=== PATIENT | male | born 1955 | race Caucasian/White ===

== ENCOUNTER → 2016-11-27 | Outpatient (CLI) | payer OTHER ==
[~2016-11-27] MED LIST: ASPEC81 PO; ATEN-173 PO; ATOR-24 PO; COEN1CAP17 PO; EZET10TA63 PO; FURO80TA63 PO; POTA10CA28 PO; PRENTAB26 PO; PRLSR20 PO; SENN-91 PO
[2016-11-27 11:06] LABS: BLOOD UREA NITROGEN 19 mg/dl (7-18); BUN/CREATININE RATIO 12.7 (10-20); CARBON DIOXIDE 32 mmol/L (21-32); CHLORIDE 104 mmol/L (98-107); GLUCOSE 95 mg/dl (70-99); POTASSIUM 4.1 mmol/L (3.5-5.1); SODIUM 141 mmol/L (136-145)
== END | disposition home or self-care (01) ==
LOC: C.LABBC 08:48
PROVIDERS: ATTEND Family Medicine
DX: E87.70 Fluid overload, unspecified (principal)

== ENCOUNTER → 2017-04-23 | Outpatient (CLI) | payer OTHER ==
[2017-04-23 11:33] LABS: BLOOD UREA NITROGEN 27 mg/dl (7-18); BUN/CREATININE RATIO 18.1 (10-20); CALCIUM 9.1 mg/dl (8.5-10.1); CARBON DIOXIDE 28 mmol/L (21-32); CHLORIDE 102 mmol/L (98-107); GLUCOSE 91 mg/dl (70-99); SODIUM 139 mmol/L (136-145)
[2017-04-23 11:35] LABS: CHOLESTEROL 173 mg/dl (0-200); CHOLESTEROL/HDL RATIO 4.7; HDL CHOLESTEROL 37 mg/dl; LDL CHOLESTEROL CALCULATED 121 mg/dl; TRIGLYCERIDES 73 mg/dl (0-150); VERY LOW DENSITY LIPOPROT CALC 15 mg/dl
== END | disposition home or self-care (01) ==
LOC: C.LABBC 08:03
PROVIDERS: ATTEND Family Medicine
DX: E78.5 Hyperlipidemia, unspecified (principal); I10 Essential (primary) hypertension

== ENCOUNTER → 2017-10-31 | Outpatient (CLI) | payer OTHER ==
[2017-10-31 15:35] LABS: ALT/SGPT 31 U/L (12-78); BLOOD UREA NITROGEN 21 mg/dl (7-18); CARBON DIOXIDE 29 mmol/L (21-32); CREATININE 1.26 mg/dl (0.60-1.40); GLUCOSE 89 mg/dl (70-99); POTASSIUM 3.8 mmol/L (3.5-5.1); SODIUM 139 mmol/L (136-145)
[2017-10-31 15:37] LABS: CHOLESTEROL 92 mg/dl (0-200); LDL CHOLESTEROL CALCULATED 45 mg/dl
== END | disposition home or self-care (01) ==
LOC: C.LABBC 09:27
PROVIDERS: ATTEND Family Medicine
DX: E78.5 Hyperlipidemia, unspecified (principal); I10 Essential (primary) hypertension; I25.10 Atherosclerotic heart disease of native coronary artery without angina pectoris

== ENCOUNTER → 2018-05-13 | Outpatient (CLI) | payer OTHER ==
[2018-05-13 12:47] LABS: BASO % 0.6 %; BASO ABS # 0.04 K/uL (0-0.2); EOS % 4.4 %; EOS ABS # 0.28 K/uL (0-0.5); HEMATOCRIT 43.6 % (42-52); HEMOGLOBIN 14.6 g/dL (14.0-18.0); IG# 0.01 K/uL (0.00-0.02); LYMPH % 31.7 %; MEAN CELL VOLUME 94.8 fL (80-100); MEAN CORPUSCULAR HEMOGLOBIN 31.7 pg (25-34); MEAN CORPUSCULAR HGB CONC 33.5 g/dl (32-36); MEAN PLATELET VOLUME 11.4 fL (7.4-10.4); MONO % 11.7 %; MONO ABS # 0.74 K/uL (0.11-0.59); NEUT % 51.4 %; NEUT ABS # 3.23 K/uL (1.4-6.5); PLATELET COUNT 225 K/uL (130-400)
[2018-05-13 13:11] LABS: HEMOGLOBIN A1C 6.1 % (4.5-5.6)
[2018-05-13 13:23] LABS: ALBUMIN 3.8 gm/dl (3.4-5.0); ALKALINE PHOSPHATASE 103 U/L (45-117); ALT/SGPT 32 U/L (12-78); AST/SGOT 35 U/L (15-37); BLOOD UREA NITROGEN 23 mg/dl (7-18); CALCIUM 9.1 mg/dl (8.5-10.1); CARBON DIOXIDE 27 mmol/L (21-32); CHOLESTEROL 105 mg/dl (0-200); CREATININE 1.18 mg/dl (0.60-1.40); GLUCOSE 98 mg/dl (70-99); LDL CHOLESTEROL CALCULATED 58 mg/dl; POTASSIUM 4.2 mmol/L (3.5-5.1); SODIUM 139 mmol/L (136-145); TOTAL PROTEIN 7.9 gm/dl (6.4-8.2)
== END | disposition home or self-care (01) ==
LOC: C.LABBC 09:40
PROVIDERS: ATTEND Family Medicine
DX: Z00.00 Encounter for general adult medical examination without abnormal findings (principal); Z12.5 Encounter for screening for malignant neoplasm of prostate; E78.5 Hyperlipidemia, unspecified; I10 Essential (primary) hypertension; R79.89 Other specified abnormal findings of blood chemistry

== ENCOUNTER 2024-12-07 22:52 | Inpatient (IN) ==
--- NOTE | 2024-12-07 23:02 | Emergency Department Note ---
Impression & Plan Symptomatic bradycardia admit to the [facility] ED Provider Note NAME: MARY KAY ESCALONA AGE: 69 SEX: Male INFORMANT: Patient ED PROVIDER(S): Kaylan Fletcher DO CHIEF COMPLAINT: Extreme fatigue PLAN: Disposition: admit to the [facility] MEDICAL DECISION MAKING: This is a 69-year-old male patient who had a sudden onset tonight of feeling extremely tired/fatigued and then had hot flash with warmth up through his chest. He then felt as if he was going to lose consciousness. EMS was called. Upon their arrival, they found the patient extremely bradycardic and hypotensive. He was resuscitated with a bolus of normal saline solution and IV atropine. By history, over the past 5 to 7 days, the patient has been having intermittent episodes of similar symptoms and actually had an episode where he lost consciousness over the weekend when he was visiting family in [place] and was seen at the [facility] after falling to the ground striking his head. He had a CT scan of his brain and cervical spine which were negative. He had a cardiac workup which was negative and Dopplers of his legs which were negative. here in the emergency department laboratory studies showed no leukocytosis. Hemoglobin was 1010.7. BUN 31 creatinine 1.93. Glucose was 123. Troponin was significantly elevated to 1161. Upon presentation to the emergency department, the patient's vital signs were stable. EKG showed no acute signs of ischemia. Discussed the case with the [facility] and they will evaluate for further inpatient care. Care/management discussed with: nursing services manager and [facility] Triage Nursing notes: reviewed and agree with them Vital Signs: reviewed and unremarkable Differential Diagnosis: cardiac dysrhythmia, PE, GERD, cardiac ischemia, hypoglycemia Diagnostics, independently interpreted by me: ECG: Sinus tachycardia at a rate of 101 with first-degree block. There is ST segment depression in the inferior and lateral leads. Cardiac Monitoring: sinus tachycardia at 103 Imaging studies: portable chest x-ray: Moderate pulmonary vascular congestion as per my independent interpretation HPI: 69 year old Male arrives for evaluation of extreme fatigue and and hot flash. sudden onset tonight of feeling extremely tired/fatigued and then had hot flash with warmth up through his chest. He then felt as if he was going to lose consciousness. EMS was called. Upon their arrival, they found the patient extremely bradycardic and hypotensive. He was resuscitated with a bolus of normal saline solution and IV atropine. PAST MEDICAL HISTORY: See Below, PAST SURGICAL HISTORY: See Below, SOCIAL HISTORY: See Below, HOME MEDICATIONS: see list ALLERGIES: see list VITALS: See Below PHYSICAL EXAMINATION: HEENT: Head - normocephalic and atraumatic Pupils are equal, round, and reactive to light. Extraocular eye muscles are intact, and sclera are anicteric. Nose - moist nasal mucosa without discharge. Mouth - moist buccal mucosa. Oropharynx is nonerythematous and there is no tonsillar exudate or edema noted. Neck: Supple; no JVD, nuchal rigidity, cervical lymphadenopathy, or auscultated bruits. Heart: Regular rate and rhythm. There is a normal S1 and S2 with no murmurs, clicks, or gallops appreciated. Lungs: Clear to auscultation bilaterally with no wheezes, rales, or rhonchi. Abdomen: Soft, completely nontender, nondistended, with good bowel sounds. There are no palpable pulsatile masses or hepatosplenomegaly. There is no guarding, rigidity, or rebound noted. Extremities: No evidence of cyanosis, clubbing, or edema. There are easily palpable peripheral pulses. Skin: warm and dry with good turgor and no rashes. Emergency Department course: Patient was evaluated in room B-5. A complete history and physical was performed. An order was placed for continuous cardiac monitoring. The patient was in a sinus tachycardia at a rate of 103. Twelve- lead EKG was obtained as described above. Laboratory studies showed evidence of moderate dehydration and the patient was bolused with normal saline solution. 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 He had no further episodes of bradycardia while here in the ER. [facility] and [facility] will evaluate for further inpatient care. Past Med/Surg History Problem List (Updated 12/08/24 @ 10:49 by Talisha Garcia PA-C) Second degree AV block, Mobitz type I NSTEMI (non-ST elevated myocardial infarction) Symptomatic bradycardia (Acute) Hypotension, unspecified Prediabetes Exertional hypotension CAD (coronary artery disease) BPH (benign prostatic hyperplasia) Chronic kidney disease Allergic rhinitis (Chronic) Chronic asthmatic bronchitis (Chronic) Esophageal reflux (Chronic) Gout (Chronic) HTN, goal below 140/90 (Chronic) Hyperlipidemia (Chronic) Left ventricular diastolic dysfunction (Chronic) Left ventricular hypertrophy (Chronic) Low testosterone (Chronic) Mild tricuspid regurgitation (Chronic) Paralyzed hemidiaphragm (Chronic) Paroxysmal atrial fibrillation (Chronic) Rosacea (Chronic) S/P CABG (coronary artery bypass graft) (Chronic) S/P aortic valve replacement (Chronic) Pleural effusion on right (Chronic) Anemia (Chronic) Atrial fibrillation Medical History (Updated 12/08/24 @ 10:49 by Talisha Garcia PA-C) History of Hodgkin's disease Cataract Surgical History (Updated 05/27/24 @ 11:24 by Leo Napier RN) Stented coronary artery RCA S/P cataract surgery History of aortic valve replacement Hx of CABG History of radiation therapy History of hernia repair History of splenectomy History of pulmonic valve repair Family History Father Myocardial infarction Hx of CABG Mother Hypertension Pure hypercholesterolemia Brother Diabetes Hypertension Unknown Prostate cancer Colorectal cancer Myocardial infarction Grandfather Prostate cancer Grandfather Colorectal cancer Denies family history of Ovarian cancer Breast cancer Social History Smoking Status: Never smoker Second Hand Exposure: No; Do You Dip or Chew Tobacco: No; Hx Alcohol Use: No Hx Substance Use: No Preferred Language: [place] Communication Ability: Effective Visual Impairment: No Limitations Hearing Ability: Normal Schedule Supervisor Required: No Beliefs That Will Affect Care: Spiritual marital status: Current Living Situation: Spouse Current Living Situation Comment: son current occupational status: retired current occupation: Retired Feels Safe at Home: Yes Safety Concerns: Feels Safe At This Time Childhood Exposure to Second-Hand Smoke: No Diet: regular Diet Comment: regular Dental Care, Regularly: Yes Physical Activity Frequency: 1-2 Times per Week Seatbelt Use: always Sunscreen Use: Yes (sometimes ) Assistive Devices: Walker Allergies Allergies Allergy/AdvReac Type Severity Reaction Status Date / Time mold Allergy Unknown Verified 12/08/24 00:35 pollen extracts Allergy Unknown Verified 12/08/24 00:35 allopurinol AdvReac Itching Verified 12/08/24 00:35 Home Meds Home Medications Medication Instructions Recorded Confirmed fexofenadine 180 mg tablet 180 mg PO QAM 07/05/19 12/08/24 cholecalciferol (vitamin D3) 25 2,000 unit PO HS 01/06/23 12/08/24 mcg (1,000 unit) capsule albuterol sulfate 2.5 mg/3 mL 2.5 mg continuous nebulization BID 12/08/24 12/08/24 (0.083 %) solution for nebulization albuterol sulfate 90 mcg/actuation 2 puff inhalation .Q4-6H PRN 12/08/24 12/08/24 aerosol inhaler Shortness Of Breath Or Wheezing aspirin 81 mg tablet,delayed 81 mg PO QAM 12/08/24 12/08/24 release atorvastatin 40 mg tablet 40 mg PO HS 12/08/24 12/08/24 budesonide 1 mg/2 mL suspension 1 mg inhalation .UD 12/08/24 12/08/24 for nebulization carvedilol 3.125 mg tablet 3.125 mg PO BID 12/08/24 12/08/24 clopidogrel 75 mg tablet 75 mg PO QAM 12/08/24 12/08/24 ezetimibe 10 mg tablet 10 mg PO DAILY 12/08/24 12/08/24 lisinopril 5 mg tablet 5 mg PO QAM 12/08/24 12/08/24 nitroglycerin 0.4 mg sublingual 0.4 mg sublingual .Q5MIN X3 PRN 12/08/24 12/08/24 tablet Chest Pain omeprazole 20 mg capsule,delayed 20 mg PO HS 12/08/24 12/08/24 release probenecid 500 mg tablet 500 mg PO BID 12/08/24 12/08/24 tiotropium bromide 2.5 2 puff inhalation QAM 12/08/24 12/08/24 mcg/actuation mist for inhalation (Spiriva Respimat) torsemide 20 mg tablet 20 mg PO QAM 12/08/24 12/08/24 Previous Rx's Medication Instructions Recorded amoxicillin 500 mg capsule 2,000 mg (4 x 500 mg) PO .COMPLEX 06/24/23 #4 caps tramadol 50 mg tablet 50 mg PO Q6H PRN pain #60 tabs 09/22/23 Results & Data (ED) Vital Signs Vital Signs - 24 hr 12/07/24 22:58 12/07/24 23:09 Temperature 36.6 C Temperature Source Oral Pulse Rate 93 H 103 H Pulse Rhythm Regular Pulse Strength Normal Respiratory Rate 20 Respiratory Effort / Characteristics Non-Labored Respiratory Depth Normal Respiratory Pattern Regular Blood Pressure 130/83 Blood Pressure Mean 98 Pulse Oximetry 97 Oxygen Delivery Method Nasal Cannula Sepsis Recent Fever Within 48 Hours No Sepsis New/Unexplained Change in Mental Status No Sepsis Action Taken by Nursing No Action Required Laboratory Data 12/08/24 03:32 12/08/24 03:32 Lab Results 12/07/24 12/08/24 Range/Units 23:00 00:53 WBC 5.61 (4.8-10.8) K/ul RBC 3.53 L (4.70-6.10) M/uL Hgb 10.7 L (14.0-18.0) g/dl Hct 32.8 L (42.0-52.0) % MCV 92.9 (80.0-100.0) fL MCH 30.3 (25.0-34.0) pg MCHC 32.6 (32.0-36.0) g/dL RDW Std Deviation 56.7 H (36.4-46.3) fL RDW Coeff of Sarahy 17.0 H (11.5-14.5) % Plt Count 230 (130-400) K/uL MPV 10.2 (9.4-12.4) fL Immature Gran % (Auto) 0.4 % Neut % (Auto) 64.9 % Lymph % (Auto) 17.1 % [place] % (Auto) 13.0 % Eos % (Auto) 4.1 % Baso % (Auto) 0.5 % Neut # (Auto) 3.64 (1.40-6.50) K/uL Lymph # (Auto) 0.96 L (1.20-3.40) K/uL [place] # (Auto) 0.73 H (0.11-0.59) K/uL Eos # (Auto) 0.23 (0.00-0.50) K/uL Baso # (Auto) 0.03 (0.00-0.20) K/uL Immature Gran # (Auto) 0.02 (0.01-0.20) K/uL Sodium 136 (136-145) mmol/L Potassium 4.0 (3.5-5.1) mmol/L Chloride 102 (98-107) mmol/L Carbon Dioxide 27 (21-32) mmol/L Anion Gap 7 (3-11) BUN 31 H (6-23) mg/dl Creatinine 1.93 H (0.6-1.4) mg/dl Est Cr Clr Drug Dosing 42.3 ml/min eGFR 36.78 BUN/Creatinine Ratio 16.1 (10-20) Glucose 123 H (70-99(Fasting)) mg/dl Estimat Average Glucose 137 mg/dl Hemoglobin A1c 6.4 H (4.5-5.6) % Calcium 8.3 L (8.6-10.3) mg/dl Phosphorus 4.6 (2.5-4.9) mg/dl Magnesium 2.1 (1.7-2.4) mg/dl Total Bilirubin 0.9 (0.2-1.0) mg/dl AST 25 (13-39) U/L ALT 21 (7-52) U/L Alkaline Phosphatase 109 H (34-104) U/L Troponin I High Sens 1161.8 H* 993.8 H* (0-20) pg/ml Total Protein 7.7 (6.0-8.3) gm/dl Albumin 3.5 (3.4-5.0) gm/dl Globulin 4.2 H (2.5-4.0) gm/dl Albumin/Globulin Ratio 0.8 L (0.9-2) Lipase 47 (11-82) U/L TSH 3.903 (0.300-4.500) uIu/ml Administered Medications Aspirin (Aspirin 81 Mg Ectab) 81 mg PO QAM [facility] Stop: 01/07/25 08:59 Last Admin: 12/08/24 08:33 Dose: 81 mg Documented By: JOYCE Atorvastatin Calcium (Atorvastatin 40 Mg Tab) 40 mg PO [facility] Stop: 01/07/25 20:59 Last Admin: 12/08/24 21:31 Dose: 40 mg Documented By: JIMY Budesonide (Budesonide 0.5 Mg/2 Ml Vial (Pulmicort)) 0.5 mg INH BIDR [facility] Stop: 01/07/25 18:59 Last Admin: 12/09/24 06:48 Dose: 0.5 mg Documented By: Admin: 12/08/24 20:17 Dose: 0.5 mg Documented By: ABENA Clopidogrel Bisulfate (Clopidogrel Bisulfate 75 Mg Tab) 75 mg PO QAM [facility] Stop: 01/07/25 08:59 Last Admin: 12/08/24 08:34 Dose: 75 mg Documented By: JOYCE Ezetimibe (Ezetimibe 10 Mg Tab) 10 mg PO DAILY [facility] Stop: 01/07/25 08:59 Last Admin: 12/08/24 08:33 Dose: 10 mg Documented By: JOYCE Fexofenadine HCl (Fexofenadine Hcl 180 Mg Tab) 180 mg PO QAM [facility] Stop: 01/07/25 08:59 Last Admin: 12/08/24 08:33 Dose: 180 mg Documented By: JOYCE Heparin Sodium/Dextrose (Heparin 29458 Unit/500 Ml D5w) 25,000 units in 500 mls @ 28 mls/hr IV .[id number] [facility]; Protocol Stop: 01/07/25 11:29 Last Admin: 12/09/24 03:55 Dose: 1,400 units/hr, 28 mls/hr Documented By: MARTHA Co-signed By: MADELINE Titration: 12/09/24 03:55 Dose: Infused Documented By: MARTHA Co-signed By: MADELINE Titration: 12/08/24 19:47 Dose: 1,400 units/hr, 28 mls/hr Documented By: JIMY Co-signed By: KRISSY Admin: 12/08/24 11:48 Dose: 1,500 units/hr, 30 mls/hr Documented By: CHELLY Co-signed By: JOYCE Pantoprazole Sodium (Pantoprazole 40 Mg Tab) 40 mg PO HS [facility] Stop: 01/07/25 20:59 Last Admin: 12/08/24 21:31 Dose: 40 mg Documented By: JIMY Probenecid (Probenecid 500 Mg Tab) 500 mg PO BID [facility] Stop: 01/07/25 08:59 Last Admin: 12/08/24 21:31 Dose: 500 mg Documented By: Admin: 12/08/24 08:33 Dose: 500 mg Documented By: JOYCE Umeclidinium Moore (Umeclidinium Moore 62.5mcg/Blister 7 Puffs/Inhaler) [facility] Stop: 01/07/25 08:59 Last Admin: 12/08/24 08:35 Dose: 1 puffs Documented By: JOYCE Discontinued Medications Heparin Sodium (Porcine) (Heparin Sod (Porcine) 1000 Unit/Ml) 7,000 units IV NOW ONE Stop: 12/08/24 11:23 Last Admin: 12/08/24 11:48 Dose: 7,000 units Documented By: CHELLY Co-signed By: JOYCE Heparin Sodium (Porcine) (Heparin Sod (Porcine) 1000 Unit/Ml) Confirm Administered Dose 1,000 units .ROUTE .STK-MED ONE Stop: 12/08/24 11:47 Last Admin: 12/08/24 11:49 Dose: Not Given Documented By: CHELLY Sodium Chloride (Nss) 500 mls @ 999 mls/hr IV .Q31M ONE Stop: 12/08/24 00:56 Last Admin: 12/08/24 01:08 Dose: Not Given Documented By: JAKE Albumin Human (Albumin 25%) 25 gm in 100 mls @ 50 mls/hr IV ONE ONE Stop: 12/08/24 02:41 Last Infusion: 12/08/24 03:23 Dose: Infused Documented By: Admin: 12/08/24 01:15 Dose: 50 mls/hr Documented By: JAKE Discharge Plan Visit Data Chief Complaint: Hypotension Stated Complaint: HYPOTENSION, BRADYCARDIC - IMPROVED WITH FLUIDS ED Provider: Kaylan Fletcher Discharge Problem: Symptomatic bradycardia Patient Disposition: Admitted As Inpatient Discharge Instructions Interventions: ED Discharge Assessment Last Done: 12/08/24 03:42
[2024-12-07 23:34] LABS: Basophils # (auto) 0.03 K/uL (0.00-0.20); Basophils % (auto) 0.5 %; Eosinophils # (auto) 0.23 K/uL (0.00-0.50); Eosinophils % (auto) 4.1 %; Hematocrit (blood only) 32.8 % (42.0-52.0); Hemoglobin 10.7 g/dl (14.0-18.0); Immature Granulocytes # (auto) 0.02 K/uL (0.01-0.20); Immature Granulocytes % (auto) 0.4 %; Lymphocytes # (auto) 0.96 K/uL (1.20-3.40); Lymphocytes % (auto) 17.1 %; Mean Corpuscular Hemoglobin 30.3 pg (25.0-34.0); Mean Corpuscular Hgb Conc 32.6 g/dL (32.0-36.0); Mean Corpuscular Volume 92.9 fL (80.0-100.0); Mean Platelet Volume 10.2 fL (9.4-12.4); Monocytes # (auto) 0.73 K/uL (0.11-0.59); Neutrophils # (auto) 3.64 K/uL (1.40-6.50); Neutrophils % (auto) 64.9 %; Platelet Count 230 K/uL (130-400); RDW Standard Deviation 56.7 fL (36.4-46.3); Red Blood Count 3.53 M/uL (4.70-6.10); White Blood Count 5.61 K/ul (4.8-10.8)
[2024-12-07 23:40] LABS: Albumin Globulin Ratio 0.8 (0.9-2); Albumin Level 3.5 gm/dl (3.4-5.0); BUN Creatinine Ratio 16.1 (10-20); Bilirubin,Total 0.9 mg/dl (0.2-1.0); Calcium 8.3 mg/dl (8.6-10.3); Creatinine Clr Calc Pharmacy 42.3 ml/min; Globulin 4.2 gm/dl (2.5-4.0); Magnesium 2.1 mg/dl (1.7-2.4); Phosphorus 4.6 mg/dl (2.5-4.9); Total Protein 7.7 gm/dl (6.0-8.3)
[2024-12-07 23:53] LABS: Troponin I High Sensitivity 1161.8 pg/ml (0-20)
[2024-12-08] MEDS: SODIUM CHLORIDE 0.9% 500 ML IV ONE (01:08)
[2024-12-08] MEDS ORDERED: ATROPINE SULFATE 0.1 MG/ML 10ML SYR IV PRN (01:10)
[2024-12-08] MEDS: ALBUMIN 25% 25 GM/100 ML VIAL IV ONE (01:15)
[2024-12-08] MEDS ORDERED: HYDROmorphone INJ 0.5 MG/0.5 ML SYR IV PRN (01:47)
[2024-12-08] MEDS ORDERED: traMADol HCL 50 MG TABLET PO PRN (01:47)
[2024-12-08] MEDS ORDERED: PROMETHAZINE 6.25 MG/50.25 ML BAG IV PRN (01:47)
--- NOTE | 2024-12-08 01:55 | XRay Report ---
Exam(s): XR CXR 1 VIEW EXAM: XR Chest, 1 View CLINICAL HISTORY: Chest pain, nonspecific. TECHNIQUE: Frontal view of the chest. COMPARISON: 07/08/2019. FINDINGS: Status post sternotomy. Heart is enlarged. Slight increase in diffuse interstitial prominence. Interval increase in right pleural effusion with basilar atelectasis versus infiltrate. No pneumothorax. Bones are unchanged. IMPRESSION: Slight increase in pulmonary vascular congestion. Increased right pleural effusion with basilar atelectasis versus infiltrate. Electronically signed by: Jorge Nazario M.D. 12/08/24 01:54 AM
[2024-12-08 02:11] LABS: Thyroid Stimulating Hormone 3.903 uIu/ml (0.300-4.500)
[2024-12-08 02:14] LABS: Troponin I High Sensitivity 993.8 pg/ml (0-20)
[2024-12-08 03:55] LABS: Basophils # (auto) 0.03 K/uL (0.00-0.20); Basophils % (auto) 0.5 %; Eosinophils # (auto) 0.11 K/uL (0.00-0.50); Eosinophils % (auto) 1.7 %; Hematocrit (blood only) 30.8 % (42.0-52.0); Hemoglobin 10.2 g/dl (14.0-18.0); Immature Granulocytes # (auto) 0.02 K/uL (0.01-0.20); Immature Granulocytes % (auto) 0.3 %; Lymphocytes # (auto) 1.04 K/uL (1.20-3.40); Mean Corpuscular Hemoglobin 30.2 pg (25.0-34.0); Mean Corpuscular Hgb Conc 33.1 g/dL (32.0-36.0); Mean Corpuscular Volume 91.1 fL (80.0-100.0); Monocytes # (auto) 0.75 K/uL (0.11-0.59); Monocytes % (auto) 11.5 %; Neutrophils # (auto) 4.55 K/uL (1.40-6.50); Platelet Count 231 K/uL (130-400); RDW Coefficient of Variation 16.8 % (11.5-14.5); RDW Standard Deviation 55.6 fL (36.4-46.3); Red Blood Count 3.38 M/uL (4.70-6.10)
[2024-12-08 04:08] LABS: BUN Creatinine Ratio 17.2 (10-20); Calcium 8.4 mg/dl (8.6-10.3); Creatinine Clr Calc Pharmacy 42.5 ml/min; Potassium 4.2 mmol/L (3.5-5.1)
--- NOTE | 2024-12-08 04:54 | History & Physical Report ---
Date of Service December 08, 2024 Assessment & Plan (1) Hypotension, unspecified: Plan: Secondary to symptomatic bradycardia 2AVB Mobitz type II/complete heart block on strips taken by EMS on the field History 2AVB Mobitz type I on outpatient ZIO monitor February 2024 as per records Troponin elevation secondary to illness in the setting of kidney dysfunction chronic diastolic heart failure (EF 60 to 64%, TTE 2024), equivocal volume status given congestion on x-ray hx CAD status post CABG severe status post bioprosthetic AVR postop A-fib/junctional bradycardia as per records mild TR pulmonary hypertension hyperlipidemia, on statin Rx bronchial asthma, not in acute exacerbation Nocturnal hypoxemia as per records, outpatient sleep study contemplated Hodgkin's lymphoma status post surgery/chemoradiation, in remission Hyperglycemia likely prediabetes, hemoglobin A1c of 6.4 from 2022 chronic anemia, hemoglobin at baseline Admit to PCU IV albumin 1 dose for hypotension given congestion External pacer pads on Atropine as needed symptomatic bradycardia Hold beta-miguel angel and other BP meds for now Cardiology consult re: symptomatic bradycardia N.p.o. in anticipation of pacemaker placement Update hemoglobin A1c DVT prophylaxis. SCDs re: possible procedure Full code Total critical care time was 45 minutes. Text document was generated using Hootsuite voice recognition software. It may contain grammatical or spelling errors. Kindly contact undersigned for clarification of any documentation item in question. Admission and Anticipated Discharge Date Admission Date: December 08, 2024 History of Present Illness Chief Complaint: Weakness, near syncope Primary Care Provider: Chelle Vasquez DO History obtained from patient and records. Medical history significant for chronic diastolic heart failure (EF 60 to 64%, TTE 2024), CAD status post CABG/stent, severe status post bioprosthetic AVR, postop A-fib/junctional bradycardia, history second-degree AVB Mobitz type I as per records, mild TR, pulmonary hypertension, labile hypertension, hyperlipidemia, bronchial asthma, nocturnal hypoxemia as per records, Hodgkin's lymphoma status post surgery/chemoradiation, CRI (baseline creatinine 1.4), c hronic anemia (baseline hemoglobin of 10), GERD, gout, skin cancer status post surgery. Last [facility] confinement 2015 for dizziness post CABG surgery. Patient gives history of increased frequency of recurrent syncopal episodes this year. Mild chest/back discomfort symptoms. Fatigue symptoms without recollection of recent tick bites. No witnessed seizures or incontinence at home. Patient seen at local [facility] urgent care center for evaluation after an event which resulted in head injury. Patient was visiting family in [place], [place] last weekend when he had another episode at the hotel resulting in head injury. Patient observed at [facility] ER. Normal head scan but abnormal heart enzyme. Patient unaware of slow heartbeats. Patient signed out AGAINST MEDICAL ADVICE because he was unhappy with care. Last night patient felt more tired and fatigued. Warm sensation in his chest with transient back discomfort relieved by nitroglycerin. [place] like he was going to pass out. No headache symptoms. Compliant with home medications. EMS called to patient's home. SBP noted to be 70s, heart rate 40s. Second-degree AV block Mobitz type II and complete heart block on outpatient str ips taken by EMS. SBP 90s, heart rate 60s post IV atropine and IVF bolus administration by EMS. Patient currently comfortable. 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 Allergies Allergy/AdvReac Type Severity Reaction Status Date / Time mold Allergy Unknown Verified 12/08/24 00:35 pollen extracts Allergy Unknown Verified 12/08/24 00:35 allopurinol AdvReac Itching Verified 12/08/24 00:35 Home Medications Medication Instructions Recorded Confirmed Type fexofenadine 180 mg tablet 180 mg PO QAM 07/05/19 12/08/24 History cholecalciferol (vitamin D3) 25 2,000 unit PO HS 01/06/23 12/08/24 History mcg (1,000 unit) capsule amoxicillin 500 mg capsule 2,000 mg (4 x 500 mg) PO .COMPLEX 06/24/23 12/08/24 Rx #4 caps tramadol 50 mg tablet 50 mg PO Q6H PRN pain #60 tabs 09/22/23 12/08/24 Rx albuterol sulfate 2.5 mg/3 mL 2.5 mg continuous nebulization BID 12/08/24 12/08/24 History (0.083 %) solution for nebulization albuterol sulfate 90 mcg/actuation 2 puff inhalation .Q4-6H PRN 12/08/24 12/08/24 History aerosol inhaler Shortness Of Breath Or Wheezing aspirin 81 mg tablet,delayed 81 mg PO QAM 12/08/24 12/08/24 History release atorvastatin 40 mg tablet 40 mg PO HS 12/08/24 12/08/24 History budesonide 1 mg/2 mL suspension 1 mg inhalation .UD 12/08/24 12/08/24 History for nebulization carvedilol 3.125 mg tablet 3.125 mg PO BID 12/08/24 12/08/24 History clopidogrel 75 mg tablet 75 mg PO QAM 12/08/24 12/08/24 History ezetimibe 10 mg tablet 10 mg PO DAILY 12/08/24 12/08/24 History lisinopril 5 mg tablet 5 mg PO QAM 12/08/24 12/08/24 History nitroglycerin 0.4 mg sublingual 0.4 mg sublingual .Q5MIN X3 PRN 12/08/24 12/08/24 History tablet Chest Pain omeprazole 20 mg capsule,delayed 20 mg PO HS 12/08/24 12/08/24 History release probenecid 500 mg tablet 500 mg PO BID 12/08/24 12/08/24 History tiotropium bromide 2.5 2 puff inhalation QAM 12/08/24 12/08/24 History mcg/actuation mist for inhalation (Spiriva Respimat) torsemide 20 mg tablet 20 mg PO QAM 12/08/24 12/08/24 History Past Med/Surg History Problem List (Updated 12/07/24 @ 23:32 by Kaylan Fletcher DO) Symptomatic bradycardia (Acute) Hypotension, unspecified Prediabetes Exertional hypotension CAD (coronary artery disease) BPH (benign prostatic hyperplasia) Chronic kidney disease Allergic rhinitis (Chronic) Chronic asthmatic bronchitis (Chronic) Esophageal reflux (Chronic) Gout (Chronic) HTN, goal below 140/90 (Chronic) Hyperlipidemia (Chronic) Left ventricular diastolic dysfunction (Chronic) Left ventricular hypertrophy (Chronic) Low testosterone (Chronic) Mild tricuspid regurgitation (Chronic) Paralyzed hemidiaphragm (Chronic) Paroxysmal atrial fibrillation (Chronic) Rosacea (Chronic) S/P CABG (coronary artery bypass graft) (Chronic) S/P aortic valve replacement (Chronic) Pleural effusion on right (Chronic) Anemia (Chronic) Atrial fibrillation Medical History (Updated 12/07/24 @ 23:32 by Kaylan Fletcher DO) History of Hodgkin's disease Cataract Surgical History (Updated 05/27/24 @ 11:24 by Leo Napier RN) Stented coronary artery RCA S/P cataract surgery History of aortic valve replacement Hx of CABG History of radiation therapy History of hernia repair History of splenectomy History of pulmonic valve repair Family History Father Myocardial infarction Hx of CABG Mother Hypertension Pure hypercholesterolemia Brother Diabetes Hypertension Unknown Prostate cancer Colorectal cancer Myocardial infarction Grandfather Prostate cancer Grandfather Colorectal cancer Denies family history of Ovarian cancer Breast cancer Social History Smoking Status: Never smoker Second Hand Exposure: No; Do You Dip or Chew Tobacco: No; Hx Alcohol Use: No Hx Substance Use: No Preferred Language: Indonesian Communication Ability: Effective Visual Impairment: No Limitations Hearing Ability: Normal 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 Beliefs That Will Affect Care: None marital status: Current Living Situation: Spouse Current Living Situation Comment: son current occupational status: retired current occupation: Retired Feels Safe at Home: Yes Safety Concerns: Feels Safe At This Time Childhood Exposure to Second-Hand Smoke: No Diet: regular Diet Comment: regular Dental Care, Regularly: Yes Physical Activity Frequency: 1-2 Times per Week Seatbelt Use: always Sunscreen Use: Yes (sometimes ) Assistive Devices: Cane Review of Systems Review of Systems: As per HPI, all other systems reviewed and negative Physical Exam Physical Exam: GENERAL: Comfortable, pleasant, obese, no respiratory distress SKIN: Pallor,, warm HEENT: Pale palpebral conjunctivae, no ptosis, moist buccal mucosa NECK : Supple, no tenderness CHEST : Healed sternal scar, CTA, no tenderness HEART : RRR, no obvious murmurs ABDOMEN: Some distention, nontender EXTREMITIES : Bilateral LE swelling without LE tenderness, palpable pulses, no other conspicuous deformities noted NEUROLOGIC : Coherent, no facial asymmetry, no other gross focality Results & Data Results & Data Vital Signs (Past 12 Hours) Vital Signs Temp Pulse Pulse Resp BP BP Pulse Ox 12/08/24 04:00 94 H 20 90/67 L 94 12/08/24 03:42 94 H 20 103/65 93 12/08/24 03:42 93 12/08/24 03:04 95 H 12/08/24 02:30 96 H 20 118/67 93 12/08/24 02:00 84 25 H 116/73 93 12/08/24 01:31 86 21 128/81 96 12/08/24 01:00 95 H 21 96/65 L 95 12/08/24 01:00 95 H 21 96/65 L 91 12/08/24 00:30 105 H 24 103/66 94 12/08/24 00:00 96 H 12 98/59 L 93 12/07/24 23:51 97 H 20 93 12/07/24 23:30 102 H 29 H 112/74 95 12/07/24 23:09 36.6 C 103 H 20 130/83 97 12/07/24 23:00 134 H 22 130/83 96 12/07/24 22:58 93 H O2 Del Method O2 Flow Rate 12/08/24 04:00 Room Air 12/08/24 03:42 Room Air 12/08/24 03:42 Room Air 12/08/24 03:04 12/08/24 02:30 Room Air 12/08/24 02:00 12/08/24 01:31 12/08/24 01:00 12/08/24 01:00 12/08/24 00:30 12/08/24 00:00 12/07/24 23:51 Room Air 0 12/07/24 23:30 12/07/24 23:09 Nasal Cannula 12/07/24 23:00 12/07/24 22:58 Laboratory Results Laboratory Results WBC 6.50 K/ul (4.8-10.8) 12/08/24 03:32 RBC 3.38 M/uL (4.70-6.10) L 12/08/24 03:32 Hgb 10.2 g/dl (14.0-18.0) L 12/08/24 03:32 Hct 30.8 % (42.0-52.0) L 12/08/24 03:32 MCV 91.1 fL (80.0-100.0) 12/08/24 03:32 MCH 30.2 pg (25.0-34.0) 12/08/24 03:32 MCHC 33.1 g/dL (32.0-36.0) 12/08/24 03:32 RDW Std Deviation 55.6 fL (36.4-46.3) H 12/08/24 03:32 RDW Coeff of Sarahy 16.8 % (11.5-14.5) H 12/08/24 03:32 Plt Count 231 K/uL (130-400) 12/08/24 03:32 MPV 10.0 fL (9.4-12.4) 12/08/24 03:32 Immature Gran % (Auto) 0.3 % 12/08/24 03:32 Neut % (Auto) 70.0 % 12/08/24 03:32 Lymph % (Auto) 16.0 % 12/08/24 03:32 Maverick % (Auto) 11.5 % 12/08/24 03:32 Eos % (Auto) 1.7 % 12/08/24 03:32 Baso % (Auto) 0.5 % 12/08/24 03:32 Neut # (Auto) 4.55 K/uL (1.40-6.50) 12/08/24 03:32 Lymph # (Auto) 1.04 K/uL (1.20-3.40) L 12/08/24 03:32 [place]verick # (Auto) 0.75 K/uL (0.11-0.59) H 12/08/24 03:32 Eos # (Auto) 0.11 K/uL (0.00-0.50) 12/08/24 03:32 Baso # (Auto) 0.03 K/uL (0.00-0.20) 12/08/24 03:32 Immature Gran # (Auto) 0.02 K/uL (0.01-0.20) 12/08/24 03:32 Sodium 135 mmol/L (136-145) L 12/08/24 03:32 Potassium 4.2 mmol/L (3.5-5.1) 12/08/24 03:32 Chloride 102 mmol/L (98-107) 12/08/24 03:32 Carbon Dioxide 26 mmol/L (21-32) 12/08/24 03:32 Anion Gap 7 (3-11) 12/08/24 03:32 BUN 33 mg/dl (6-23) H 12/08/24 03:32 Creatinine 1.92 mg/dl (0.6-1.4) H 12/08/24 03:32 Est Cr Clr Drug Dosing 42.5 ml/min 12/08/24 03:32 eGFR 37.01 12/08/24 03:32 BUN/Creatinine Ratio 17.2 (10-20) 12/08/24 03:32 Glucose 124 mg/dl (70-99(Fasting)) H 12/08/24 03:32 Lactate 0.8 mmol/L (0.4-2.0) 12/08/24 01:15 Calcium 8.4 mg/dl (8.6-10.3) L 12/08/24 03:32 Phosphorus 4.6 mg/dl (2.5-4.9) 12/07/24 23:00 Magnesium 2.1 mg/dl (1.7-2.4) 12/07/24 23:00 Total Bilirubin 0.9 mg/dl (0.2-1.0) 12/07/24 23:00 AST 25 U/L (13-39) 12/07/24 23:00 ALT 21 U/L (7-52) 12/07/24 23:00 Alkaline Phosphatase 109 U/L (34-104) H 12/07/24 23:00 Troponin I High Sens 993.8 pg/ml (0-20) H* 12/08/24 00:53 Total Protein 7.7 gm/dl (6.0-8.3) 12/07/24 23:00 Albumin 3.5 gm/dl (3.4-5.0) 12/07/24 23:00 Globulin 4.2 gm/dl (2.5-4.0) H 12/07/24 23:00 Albumin/Globulin Ratio 0.8 (0.9-2) L 12/07/24 23:00 Lipase 47 U/L (11-82) 12/07/24 23:00 TSH 3.903 uIu/ml (0.300-4.500) 12/08/24 00:53 Impressions Chest X-Ray 12/07/24 23:21 Exam(s): XR CXR 1 VIEW EXAM: XR Chest, 1 View CLINICAL HISTORY: Chest pain, nonspecific. TECHNIQUE: Frontal view of the chest. COMPARISON: 07/08/2019. FINDINGS: Status post sternotomy. Heart is enlarged. Slight increase in diffuse interstitial prominence. Interval increase in right pleural effusion with basilar atelectasis versus infiltrate. No pneumothorax. Bones are unchanged. IMPRESSION: Slight increase in pulmonary vascular congestion. Increased right pleural effusion with basilar atelectasis versus infiltrate. Electronically signed by: Jorge Nazario M.D. 12/08/24 01:54 AM Diagnostic Findings EKG as per my interpretation :Rate 105, sinus tachycardia, normal axis, 1 AVB, T wave abnormalities lateral and septal leads Code Status & VTE Plan VTE Prophylaxis Plan VTE Prophylaxis will be ordered: Yes
--- OUTSIDE RECORDS SUMMARY | 2024-12-08 08:14 | External Medical Summary | Summary of Care ---
Author Name Unknown Organization [facility] Address [address] [facility] [place] [address] Phone [phone] Care Team Providers Care Policy Intern Name Role Phone JyotsnaMona montieljackeline Lazo DO Primary Care Provider Reason for Visit * Reason Comments Follow Up Encounter Details Date Type Department Care Team (Late st Contact Info) Description 11/24/2024 2:30 PM EST Office Visit Cardiology, [facility] [address] [place] [address] Tracey Cole CRNP [address] [facility] [place] [address] Acute on chronic heart failure with preserved ejection fraction (HCC)*; Coronary artery disease of [place] artery of [place] heart with stable angina pectoris (HCC); S/P CABG x 2; S/P aortic valve replacement with bioprosthetic valve; Dyslipidemia, goal LDL below 70; Essential hypertension with goal blood pressure less than 140/90 Allergies Active Allergy Reactions Criticality Noted Date Comments Allopurinol Rash 04/17/2020 Pollen 04/22/2012 Seasonal allergies Molds & Smuts 07/01/2022 documented as of this encounter (statuses as of 11/28/2024) Medications Fexofenadine HCl 180 MG Oral Tablet Take 1 Tablet by mouth in the morning. Active Vitamin D 50 MCG (1999) Oral Capsule Take 2,000 Units by mouth at bedtime. Active traMADol HCl 50 MG Oral Tablet (Ultram) Take 1 Tablet by mouth every 6 hours as needed. Active Potassium Chloride ER 10 MEQ Oral Tablet Extended Release Take 1 Tablet by mouth in the morning. 08/27/20 Active Carvedilol 3.125 MG Oral Tablet (Coreg) Take 1 Tablet by mouth in the morning and 1 Tablet before bedtime. 68 Tablet 11 12/23/19 24 Active Additional Information Patient taking differently:3.125 mg OralDaily(Non-Specified), Only taking at bedtime, Reported on 11/24/2024 Aspirin 81 MG Oral Tablet Chewable Take 1 Tablet by mouth in the morning. Do not start before April 10, 2024. 90 Tablet 3 04/10/20 24 Active Clopidogrel Bisulfate 75 MG Oral Tablet (pLAVix) Take 1 Tablet by mouth in the morning. Do not start before April 10, 2024. 90 Tablet 3 04/10/20 24 Active Amoxicillin 500 MG Oral Capsule (Amoxil) Take 4 Capsules by mouth daily as needed (dental appointments). Active Omeprazole 20 MG Oral Capsule Delayed Release (PriLOSEC) Take 1 Capsule by mouth at bedtime. 90 Capsule 3 05/31/20 24 Active Ezetimibe 10 MG Oral Tablet (Zetia) Take 1 Tablet by mouth in the morning. 100 Tablet 3 06/08/20 24 Active Nitroglycerin 0.4 MG Sublingual Tablet Sublingual (Nitrostat) Place 1 Tablet under the tongue every 5 minutes as needed for Pain, Chest. up to 3 doses in 15 minutes 25 Tablet 5 11:24 AM EST 07/22/20 24 Active Atorvastatin Calcium 40 MG Oral Tablet (Lipitor) Take 1 Tablet by mouth in the morning. 100 Tablet 3 5 1:36 PM EST 07/22/20 24 Active Spiriva Respimat 2.5 MCG/ACT Inhalation Aerosol Solution (Tiotropium [place] Monohydrate) Inhale 2 Puffs by mouth in the morning. 4 g 5 11:24 AM EST 09/14/20 24 Active HumidifierIndic ations:Hodgkin lymphoma, unspecified Hodgkin lymphoma type, unspecified body region (HCC) Humidifier for oxygen concentrator 2 Each 10/08/20 24 Active Compressor NebulizerIndica tions:Hodgkin lymphoma, unspecified Hodgkin lymphoma type, unspecified body region (HCC),Wheezing, Chronic pleural effusion Inhale via nebulizer. Use as directed. 1 Each 10/11/20 24 Active Probenecid 500 MG Oral Tablet (Benemid) Take 1 Tablet by mouth in the morning and 1 Tablet before bedtime. 60 Tablet 5 11/01/19 25 Active Ventolin HFA 108 (90 Base) MCG/ACT Inhalation Aerosol SolutionIndicat ions:Wheeze Inhale 2 Puffs by mouth as needed for Cough or Wheezing. 8.5 g 3 5 11:49 AM EST 11/03/19 25 Active Albuterol Sulfate (2.5 MG/3ML) 0.083% Inhalation Nebulization Solution (Proventil)Kendy cations:Wheeze Inhale 1 Vial via nebulizer every 4 hours as needed for Wheezing. 180 mL 5 5 11:49 AM EST 11/03/19 25 Active Budesonide 1 MG/2ML Inhalation Suspension (Pulmicort) Inhale 1 mg via nebulizer in the morning and 1 mg in the evening. 180 mL 3 5 1:33 PM EST 11/03/19 25 2024 Active Lisinopril 5 MG Oral Tablet (Prinivil) Take 1 Tablet by mouth in the morning. In the morning.. 09/21/20 24 Active Torsemide 20 MG Oral Tablet (Demadex) Take 1 Tablet by mouth in the morning. 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 See genetic counselor note for more details (07/08/2024). Calculus of gallbladder with out cholecystitis without obstruction 04/22/2024 Angina at rest 04/09/2024 S/P drug eluting coronary stent placement 2023 Overview (04/09/2024): S/p successful PCI to prox RCA 80% stenosis with placement of [id number] Xience Skypoint WEST, post-dilated with 3.5mm NC Balloon reducing stenosis to 0% with JAMES 3 flow Essential (primary) hypertension 12/08/2023 Hyperlipidemia 12/08/2023 Atherosclerosis of [place] co ronary artery without angina pectoris 12/08/2023 History of therapeutic radiation 09/20/2022 MGUS (monoclonal gammopathy of unknown significa nce) 05/17/2020 History of nonmelanoma skin cancer 11/25/2017 Overview (11/25/2017): Hx of BCC mid back - 2016 Hx of BCC left neck - 2016 Hx of SCC in situ on right lower back - 2013 Hx of BCC mid back - 2012 Hx of BCC left posterior scalp - 2011 Hx of BCC left posterior neck - 2011 Hx of BCC left posterior neck inferior -2011 Hx of BCC left post auricular sulcus - 2009 Hx of BCC left ear - 2009 Hx of BCC right upper back - 2011 Hx of BCC left lateral neck - 2011 S/P AVR (aortic valve replacement) 11/20/2015 Actinic keratosis 11/09/2013 Hodgkin lymphoma Aortic stenosis documented as of this encounter (statuses as of 11/28/2024) Resolved Problems Problem Noted Date Diagnosed Date Resolved Date Prediabetes 12/22/2023 04/22/2024 Overview: Per Prediabetes protocol Atrial fibrillation 11/20/2015 04/05/20 Overview (02/13/2016): ICD-10 update of inactive term Anticoagulation management encounter 11/20/2015 04/05/2024 History of basal cell carcinoma 11/09/2013 11/25/2017 Basal cell carcinoma of skin of trunk, except scrotum 06/23/2013 11/25/2017 History of basal cell carcinoma 04/22/2012 11/25/2017 Overview (04/22/2012): Hx of BCC left post auricular sulcus - 2009 Hx of BCC left ear - 2009 Hx of BCC right upper back - 2011 Hx of BCC left lateral neck - 2011 documented as of this encounter (statuses as of 11/28/2024) Immunizations Name Administration Dates Next Due COVID-19 mRNA, LNP-s, No Pre serve, 2-Dose Series (Moderna) 02/08/2022,09/05/2021,12/10/2020,11/02 COVID-19, MRNA-LNP, PF, 50 M CG/0.5 mL, 12 YRS AND ABOVE, IM (MODERNA-Spikevax) 08/21/2024,07/10/2023 Covid-19, Mrna, Lnp-s, Pf, B ivalent, 50 Mcg, IM, 12 yrs and above (Moderna) 08/23/2022 Hepatitis B, 20+ yrs 06/29/2021,02/26/2021,12/25 Pneumococcal Conjugate Vacc, 13 Valent (Prevnar) 07/13/2019 Pneumococcal Polysaccharide PPV23 (Pneumovax) 08/03/2020 RSV Vac., Recomb, Adjuvant, PF,0.5 Ml (Arexvy) 08/07/2023 Seasonal Influenza Vac., MDV , IM, 0.5 mL (Fluzone) 10/23/2013 Seasonal Influenza Virus Vac cine, Unspecified Formulation 07/26/2022,08/02/2021,10/20/2018,10/12,09/25/2016,08/23/2015,10/23/2013 Seasonal Influenza, High Dos e, Trivalent, PF, IM (Fluzone HD) 06/17/2024 Seasonal Influenza, Quadriva lent Hd, 65+ Yrs 07/25/2023,07/28/2020 TDAP (age 10 and older)(Boostrix) 10/02/2023,09/2012 Zoster Vaccine Recombinant (Shingrix) 03/18/2020 ,10/27/2019 documented as of this encounter Social History Tobacco Use Types Packs/Day Years Used Date Smoking Tobacco: Never Smokeless Tobacco: Never Alcohol Use Standard Drinks/Week Comments Yes 0 (1 standard drink = 0.6 oz pur e alcohol) occ PHQ-2 Answer Date Recorded PHQ Adult Total Score 0 09/17/2024 Hunger Vital Sign Answer Date Recorded Within the past 12 months, y ou worried that your food would run out before you got the money to buy more. Never true 09/27/20 24 Within the past 12 months, t he food you bought just didn't last and you didn't have money to get more. Never true 09/27/2024 Childcare Answer Date Recorded Do you feel overwhelmed with taking care of a child, family member or friend? No 09/27/2024 Does your family need help f inding childcare? (Household - for ages 0-17 years) Not on file 09/27/2024 Clothing Answer Date Recorded Have you been unable to get clothing when it was really needed? No 09/27/2024 Is your family able to get c lothes or diapers when needed? (Household - for ages 0-17 years) Not on file 09/27/2024 Personal Safety Answer Date Recorded Do you feel unsafe or have concerns for your saf ety? No 09/27/2024 Do you have concerns for you r family's safety? (Household - for ages 0-17 years) Not on file 09/27/2024 Utilities Answer Date Recorded Do you have trouble paying y our heating, water, or electric bill? No 09/27/2024 Is your family able to pay t he heat, water, or electric bill? (Household - for ages 0-17 years) Not on file 09/27/2024 Does your family have access to good internet? (Household - for ages 0-17 years) Not on file 09/27/2024 Employment Status Answer Date Recorded Are you unemployed or without regular income? No 09/27/2024 Does the household have a re lar source of income? (Household - for ages 0-17 years) Not on file 09/27/2024 Social Connections Answer Date Recorded How often do you feel lonely or isolated from th ose around you? Never 09/27/2024 Financial Resource Strain Answer Date R ecorded Do you have any trouble payi ng for your medications, or do you think you might in the future? No 09/27/2024 Does your family have troubl e paying for medicine? (Household - for ages 0-17 years) Not on file 09/27/2024 Transportation Needs Answer Date Record ed Do you have trouble getting a ride to medical visits or work? (Adult - for ages 18 years and over) Not on file 09/27/2024 Does your family have a hard time getting a ride to doctors visits? (Household - for ages 0-17 years) Not on file 09/27/2024 Has lack of transportation k ept you from medical appointments, meetings, work, or from getting things needed for daily living? Check all that apply. No 09/27/2024 Do you (or your family) have trouble finding or paying for a ride (transportation)? (Household - for ages 0-17 years) Not on file 09/27/2024 Housing Stability Answer Date Recorded Do you currently live in a s helter or have no steady place to sleep at night? No 09/27/2024 Do you think you are at risk of becoming homeless? (Adult - for ages 18 years and over) Not on file 09/27/2024 Does your family worry about paying for your home or becoming homeless? (Household - for ages 0-17 years) Not on file 1 11/28/2023 Are you homeless or worried that you might be in the future? No 09/27/2024 Are you (or your family) april eless or worried that you might be in the future? (Household - for ages 0-17 years) Not on file Food Insecurity Answer Date Recorded Do you need food for this week? No 09/27/2024 Are you able to get enough f ood for your family? (Household - for ages 0-17 years) Not on file 09/27/2024 Does your family need food t his week? (Household - for ages 0-17 years) Not on file 09/27/2024 Do you always have enough fo od for your family? (Household - for ages 0-17 years) Not on file 09/27/2024 Food Insecurity Answer Date Recorded Within the past 12 months, y ou worried that your food would run out before you got the money to buy more. Never true 09/27/20 24 Within the past 12 months, t he food you bought just didn't last and you didn't have money to get more. Never true 09/27/2024 Do you need food for this week? No 09/27/2024 Sex and Gender Information Value Date Recorded Sex Assigned at Male 09/18/2022 7:41 AM EST Legal Sex Male 5:36 AM EST Gender Identity Male 09/18/2022 7:41 AM EST Sexual Orientation Straight 09/18/2022 7: 41 AM EST documented as of this encounter Last Filed Vital Signs Vital Sign Reading Time Taken Comments Blood Pressure 110/76 11/24/2024 2:31 PM EST Pulse 96 11/24/2024 2:31 PM EST Temperature - - Respiratory Rate - - Oxygen Saturation - - Inhaled Oxygen Concentration - - Weight 100.7 kg (222 lb) 11/24/2024 2:31 PM EST Height - - Body Mass Index 34.77 11/12/2024 2:07 PM EST documented in this encounter Functional Status * Are you deaf or do you have serious difficulty hearing? Answer Date of Assessment Author No 11/08/2015 5:21 PM Lavonne Bermudez RN * Are you blind or do you have serious difficulty seeing, even when wearing glasses? Answer Date of Assessment Author No 11/08/2015 5:21 PM Lavonne Bermudez RN * Do you have serious difficulty walking or climbing stairs? (5 years old or older) Answer Date of Assessment Author No 11/08/2015 5:21 PM Lavonne Bermudez RN * Because of a physical, mental, or emotional condition, do you have difficulty doing errands alone such as visiting a doctors office or shopping? (15 years old or older) Answer Date of Assessment Author No 11/08/2015 5:21 PM Lavonne Bermudez RN documented as of this encounter Mental Status * Because of a physical, mental, or emotional condition, do you have serious difficulty concentrating, remembering, or making decisions? (5 years old or older) Answer Entry Date Author No 11/08/2015 5:21 PM Lavonne Bermudez RN documented in this encounter Nursing Notes * Heidy Johnson CMA - 11/24/2024 2:29 PM EST Examination Room: 4 Name: Michael Hughes Date of : (1955) Reason for Visit: H/D Interim Hospitalization(s): 11/10 Problems/Concerns: Dizziness, headaches, ringing in ears,neuropathy, hot flashes Chest Pain/SOB: chest pain, feels in upper back/ shoulder. Last happened a week ago. Took nitro, helped some. SOBOE, sometimes worse then others. My [facility] is a way you can talk to your provider online through e-mail. Would you like to sign up? I can activate it for you? ALREADY ACTIVE Patient was instructed to not get up on the exam table until directed and assisted by their provider; patient is to remain seated in the chair/ wheelchair/ exam table for fall prevention and safety reasons. Patient is aware to have assistance to step down off exam table with personnel. Patient voiced full comprehension of instructions. documented in this encounter Plan of Treatment Upcoming Encounters Date Type Department Care Team (Latest Contact Info) Description 12/09/2024 10:30 AM EST Laboratory Laboratory, [facility] [address] [facility] [place] [phone] [facility] [address] [facility] [place] [address] 12/14/2024 8:40 AM EST Office Visit Family Practice [address] [place] [address] [address] [place] [address] Chelle Vasquez DO [address] [place] [address] 01/03/2025 11:00 AM EDT Office Visit Cardiology, [facility] [address] [facility] [place] [address] Uriel Warren, DO [address] [facility] [place] [address] 01/06/2025 8:30 PM EDT PulmDiagnostic Sleep Lab, [facility] [address] [place] [address] Gl, Sleep [facility] [address] 02/11/2025 1:30 PM EDT Office Visit Dermatology [facility] [address] [place] [address] Juanito Browning MD [address] [place] [address] 02/17/2025 11:30 AM EDT Office Visit Cardiology, [facility] [address] [facility] [place] [address] Uriel Warren O, DO [address] [facility] [place] [address] 02/17/2025 2:30 PM EDT Office Visit Hematology/Oncolog y [facility] [address] [facility] [place] [phone] Leonarda Trevino CRNP [address] [place] [address] [place] [address] 03/23/2025 8:30 AM EDT Office Visit Pulmonary Medicine, [facility] [address] [facility] [place] [address] Marino Rodriguez MD [address] [place] [address] 05/04/2025 9:30 AM EDT Office Visit Pulmonary Medicine, [facility] [address] [facility] [place] [address] Marino Rodriguez MD [address] [place] [address] 05/06/2025 8:00 AM EDT Hospital Encounter ENDO [facility], Endoscopy Room [facility] [address] [place] [phone] Dallas Askew MD [address] [place] [address] 05/06/2025 8:00 AM EDT - 05/06/2025 8:30 AM EDT Surgery ENDO [facility], Endoscopy Room [facility] [address] [place] [phone] Dallas Askew MD [address] [place] [address] COLONOSCOPY FLEXIBLE PROXIMAL DIAGNOSTIC Scheduled Procedures Name Priority Associated Diagnoses Date/Ti me COLONOSCOPY FLEXIBLE PROXIMAL DIAGNOSTIC Recall History of colon polyps Family history of colonic polyps 05/06/2025 8:00 AM EDT Health Maintenance Due Date Last Done Comments Hepatitis C Screening 02/02[birth year]1972 Cologuard 1999 Fecal Occult Blood Test 1999 Sigmoidoscopy 1999 Adult Wellness Visit 02/02/2020 COVID-19 Vaccine (8 - Moderna risk ) 02/18/2025 08/21/2024, 07/10/2023, 08/23/2022, Additional history exists HOME BP CUFF VALIDATION YEARLY 03/04/2025 03/04/2024 Depression Screening 09/17/2025 09/17/2024 GFR 11/24/2025 11/24/2024, 10/14, 11/03/2024, Additional history exists Albumin/Creatinine Ratio 02/23/2027 02/24/2024 DTap/Tdap Vaccines (3 - Td or Tdap) 10/02/2033 10/02/2023, 09/23/2012 Colonoscopy 10/21/2033 10/21/2023, 06/2024, 04/08/2023, Additional history exists Colorectal Cancer Screening 10/21/2033 Zoster Vaccines Completed 03/18/2020, 10/27/2019 Pneumococcal Vaccine: 50+ Years Completed 08/03/2020, 07/13/2019 Hepatitis B Vaccine Completed 06/29/2021, 02/26/2021, 12/25/2020 Influenza Vaccine (FLU shot) Completed 02/2024, 07/25/2023, 07/26/2022, Additional history exists HPV (Gardasil) Vaccine Aged Out No lo nger eligible based on patient's age to complete this topic MENINGOCOCCAL (MENACTRA/MENVEO) Aged Out No longer eligible based on patient's age to complete this topic Meningitis B Vaccine (Bexsero/Trumemba) Aged Out No longer eligible based on patient's age to complete this topic documented as of this encounter Medical Devices Implanted Type Area Composition Professor Device Identifier Shelf Expiration Date Model / Serial / Lot Marker Coronary [facility] - [id number] Implanted:Qty: 2 on 11/10/2015 by Jorge Colón MD at [place] [facility] N/A: Heart [employer] [facility] / / [id number] Valve Heart Aortic Epic 25mm - [id number] - [id number] Implanted:Qty: 1 on 11/10/2015 by Jorge Colón MD at [place] [facility] N/A: Heart [facility] : CARDIOVASCULAR 03/05/2019 [id number] / [id number] / Sut Steel 6 M654g - [id number] Implanted:Qty: 4 on 11/10/2015 by Jorge Colón MD at [place] [facility] N/A: Chest JNJ : [employer] M654G / / Lens Intraoc 16.5 - [id number] - [id number] Implanted:Qty: 1 on 08/22/2020 by Pola Lozano MD at OR [facility] Right: Eye [employer] 02/09/2025 [id number] / [id number] / [id number] Lens Intraoc 16.0 - [id number] - [id number] Implanted:Qty: 1 on 09/05/2020 by Pola Lozano MD at OR [facility] Left: Eye [employer] 02/09/2025 [id number] 0 / [id number] / [id number] Clip Quick 2.8mm 230cm - [id number] Implanted:Qty: 1 on 04/23/2021 by Dallas Askew MD at ENDOSCOPY [facility] Colon [employer] 12/11/2023 [id number] / / 13K Cath Thermodilution 6fr - [id number] Implanted:Qty: 1 on 04/09/2024 by Jose Cruz Hill DO at CARDIAC [facility]S [facility] [employer] [id number] 10/27/2025 [id number] / / [id number] Stent Xience Skypoint 3.25x15 - [id number] Implanted:Qty: 1 on 04/09/2024 by Jose Cruz Hill DO at [facility]ARDI[facility] : VASCULAR DEVICES 01/04/2027 [id number] / / [id number] documented as of this encounter Results * (ABNORMAL) BASIC METABOLIC PANEL (11/24/2024 3:16 PM EST) BUN 33(H) 6 - 20 mg/dL 11/24/2024 3:47 PM EST [facility] CREATININE 1.5(H) 0.6 - 1.2 mg/dL 11/24/2024 3:47 PM EST [facility] EGFR 51(L) >=60 mL/min 11/24/2024 3:47 PM EST [facility] Comment:eGFR is calculated b ased on the CKD-EPI 2020 equation. SODIUM 137 135 - 146 mmol/L 11/24/2024 3:47 PM EST [facility] POTASSIUM 4.6 3.5 - 5.1 mmol/L 11/24/2024 3:47 PM EST [facility]10 CHLORIDE 98 98 - 107 mmol/L 11/24/2024 3:47 PM EST [facility] CO2 29 22 - 32 mmol/L 11/24/2024 3:47 PM EST [facility] ANION GAP 10 7 - 15 mmol/L 11/24/2024 3:47 PM EST [facility]10 GLUCOSE 120 70 - 120 mg/dL 11/24/2024 3:47 PM EST [facility]10 CALCIUM 9.6 8.4 - 10.2 mg/dL 11/24/2024 3:47 PM EST [facility]10 Blood Venous blood specimen / Unknown Venipuncture / Unknown 11/24/2024 3:16 PM EST 11/24/2024 3:16 PM EST Tracey MACIAS LAB BLOOD ORDERABLES Final Result [facility] [place] [place] [facility] [place] [address] documented in this encounter Visit Diagnoses Diagnosis Acute on chronic heart failure with preserved ejection fraction (HCC)- Primary Coronary artery disease of [place] artery of [place] heart with stable angina pectoris (HCC) S/P CABG x 2 Postsurgical aortocoronary bypass status S/P aortic valve replacement with bioprosthetic valve Heart valve replaced by transplant Dyslipidemia, goal LDL below 70 Other and unspecified hyperlipidemia Essential hypertension with goal blood pressure less than 140/90 History of colon polyps Personal history of colonic polyps Family history of colonic polyps documented in this encounter Advance Directives * Full Code (Latest Code Status on File) Date Activated Date Inactivated Comments 11/10/2015 2:16 PM 11/20/2015 6:31 PM This order re flects the patients wishes and were consensually agreed upon. * Full Code Date Activated Date Inactivated Comments 11/08/2015 7:24 PM 11/10/2015 6:41 AM This order r eflects the patients wishes and were consensually agreed upon. Question Answer Comments Discussion of Advance Directives occurred with: Patient Does the patient have a Living Will? No Does the patient have Health Care Power of Attor baldev? No Care Teams Policy Intern Relationship Specialty Start Date End Date Chelle Vaqsuez DO [address] [place] [address] PCP - General Family Medicine 03/30/24 documented as of this encounter
--- OUTSIDE RECORDS SUMMARY | 2024-12-08 08:14 | External Medical Summary | Summary of Care ---
Author Name Unknown Organization [facility] Address [address] [facility] [place] [address] Phone [phone] Care Team Providers Care Director Financial Planning Name Role Phone Chelle Vasquez DO Primary Care Provider [phone] Reason for Visit * Reason Comments Follow Up Encounter Details Date Type Department Care Team (Late st Contact Info) Description 12/03/2024 1:00 PM EST Nurse Only Family Practice [address] [phone] College, Nurse [facility] Prac [address] [address] Follow Up Allergies Active Allergy Reactions Criticality Noted Date Comments Allopurinol Rash 04/17/2020 Pollen 04/22/2012 Seasonal allergies Molds & Smuts 07/01/2022 documented as of this encounter (statuses as of 12/03/2024) Medications Fexofenadine HCl 180 MG Oral Tablet Take 1 Tablet by mouth in the morning. Active Vitamin D 50 MCG (2000 UT) Oral Capsule Take 1 Capsule by mouth at bedtime. Active traMADol HCl 50 MG Oral Tablet (Ultram) Take 1 Tablet by mouth every 6 hours as needed. Active Potassium Chloride ER 10 MEQ Oral Tablet Extended Release Take 1 Tablet by mouth in the morning. 3 Active Carvedilol 3.125 MG Oral Tablet (Coreg) Take 1 Tablet by mouth in the morning and 1 Tablet before bedtime. 68 Tablet 11 4 Active Additional Information Patient taking differently:3.125 mg OralDaily(Non-Specified), Only taking at bedtime, Reported on 12/03/2024 Aspirin 81 MG Oral Tablet Chewable Take 1 Tablet by mouth in the morning. Do not start before April 10, 2024. 90 Tablet 3 4 Active Clopidogrel Bisulfate 75 MG Oral Tablet (pLAVix) Take 1 Tablet by mouth in the morning. Do not start before April 10, 2024. 90 Tablet 3 4 Active Amoxicillin 500 MG Oral Capsule (Amoxil) Take 4 Capsules by mouth daily as needed (dental appointments). Active Omeprazole 20 MG Oral Capsule Delayed Release (PriLOSEC) Take 1 Capsule by mouth at bedtime. 90 Capsule 3 4 Active Ezetimibe 10 MG Oral Tablet (Zetia) Take 1 Tablet by mouth in the morning. 100 Tablet 3 4 Active Nitroglycerin 0.4 MG Sublingual Tablet Sublingual (Nitrostat) Place 1 Tablet under the tongue every 5 minutes as needed for Pain, Chest. up to 3 doses in 15 minutes 25 Tablet 11 11/12/2024 11:24 AM EST 4 Active Atorvastatin Calcium 40 MG Oral Tablet (Lipitor) Take 1 Tablet by mouth in the morning. 100 Tablet 3 10/20/2024 1:36 PM EST 4 Active Spiriva Respimat 2.5 MCG/ACT Inhalation Aerosol Solution (Tiotropium [place] Monohydrate) Inhale 2 Puffs by mouth in the morning. 4 g 10 11/12/2024 11:24 AM EST 4 Active HumidifierIndica tions:Hodgkin lymphoma, unspecified Hodgkin lymphoma type, unspecified body region (HCC) Humidifier for oxygen concentrator 2 Each 4 Active Compressor NebulizerIndicat ions:Hodgkin lymphoma, unspecified Hodgkin lymphoma type, unspecified body region (HCC),Wheezing,C hronic pleural effusion Inhale via nebulizer. Use as directed. 1 Each 4 Active Probenecid 500 MG Oral Tablet (Benemid) Take 1 Tablet by mouth in the morning and 1 Tablet before bedtime. 60 Tablet 5 5 Active Ventolin HFA 108 (90 Base) MCG/ACT Inhalation Aerosol SolutionIndicati ons:Wheeze Inhale 2 Puffs by mouth as needed for Cough or Wheezing. 8.5 g 3 11/03/2024 11:49 AM EST 5 Active Albuterol Sulfate (2.5 MG/3ML) 0.083% Inhalation Nebulization Solution (Proventil)Indic ations:Wheeze Inhale 1 Vial via nebulizer every 4 hours as needed for Wheezing. 180 mL 5 11/03/2024 11:49 AM EST 5 Active Budesonide 1 MG/2ML Inhalation Suspension (Pulmicort) Inhale 1 mg via nebulizer in the morning and 1 mg in the evening. 180 mL 3 11/05/2024 1:33 PM EST 5 025 Active Lisinopril 5 MG Oral Tablet (Prinivil) Take 1 Tablet by mouth in the morning. In the morning.. 4 Active Torsemide 40 MG Oral Tablet Take 40 mg by mouth in the morning. 5 Active documented as of this encounter (statuses as of 12/03/2024) Active Problems Problem Noted Date Diagnosed Date [...] prox RCA 80% stenosis with placement of 3.80m91bo Xience Skypoint WEST, post-dilated with 3.5mm NC Balloon reducing stenosis to 0% with JAMES 3 flow Essential (primary) hypertension 12/08/2023 Hyperlipidemia 12/08/2023 Atherosclerosis of [place] ronary artery without angina pectoris 12/08/2023 [...] Hx of BCC left posterior neck - 2012 Hx of BCC left posterior neck inferior -2011 Hx of BCC left post auricular sulcus - 2009 Hx of BCC left ear - 2009 Hx of BCC right upper back - 2011 Hx of BCC left lateral neck - 2011 S/P AVR (aortic valve replacement) 11/20/2015 Actinic keratosis 11/09/2013 Hodgkin lymphoma Aortic stenosis documented as of this encounter (statuses as of 12/03/2024) Resolved Problems Problem Noted Date Diagnosed Date [...] as of this encounter (statuses as of 12/03/2024) Immunizations Name Administration Dates Next Due COVID-19 [...] Date Smoking Tobacco: Never Smokeless Tobacco: Never Tobacco Cessation:Counseling Given: Yes Alcohol Use Standard Drinks/Week Comments Yes 0 [...] Sign Reading Time Taken Comments Blood Pressure 148/85 12/03/2024 12:28 PM EST Pulse 92 12/03/2024 12:28 PM EST Temperature - - Respiratory Rate - - Oxygen Saturation 98% 12/03/2024 12:14 PM EST Inhaled Oxygen Concentration - - Weight - - Height - - Body Mass Index - - documented in this encounter Functional Status * [...] Lavonne Bermudez RN documented in this encounter Progress Notes * Vaelrie Vargas LPN - 12/03/2024 2:36 PM EST Noted, new encounter was started. Did send patient an email to update him. Thank you * Chelle Vasquez DO - 12/03/2024 2:24 PM EST At this point, I don't have anything to add. Needs cardiology f/u. These are ongoing complaints. EDwith emergencies. * Paulina Almodovar LPN - 12/03/2024 12:30 PM EST Started new tele enc for Dr. Jennifer Warren documented in this encounter Nursing Notes * Valerie Vargas LPN - 12/03/2024 12:09 PM EST Walked in would like his bp checked. States gets while doing steps he feels at times he has to take a deep breath. States lungs are clear, doesn't feel breathing issues. States bp at home is low in 110's over 60's A couple of times felt like he was having angina. Chest xray was done 11/12/2024 remains under process. Recent echo done 11/09/2024 Regarding the nebulizer treatments, uses 1/2 of medication twice daily. Mixes both types together. States weight is down. Torsemide was increased from 20 to 40 mg on 11/25. States since then has seen low bp's at home. Under care of Dr Quezada at [facility]. Weight at home today was 215.0 lb In office fully clothed was 227.0 States no edema. Forwarding to cardiology and pcp. Cardio did change torsemide. documented in this encounter Plan of Treatment Upcoming Encounters Date Type Department Care Team (Latest Contact Info) Description 12/09/2024 10:30 AM EST Laboratory Laboratory, [facility] [address] [facility] [address] 12/14/2024 8:40 AM EST Office Visit Family Practice 65 [facility] [address] [place] [address] Chelle Vasquez, 293 [facility], [place] [address] 01/03/2025 11:00 AM EDT Office Visit Cardiology, [facility] 132 [facility] [place] [address] Uriel Warren, DO 132 [facility] [place] [address] 01/06/2025 8:30 PM EDT PulmDiagnostic Sleep Lab, [facility] [address] [facility], Sleep Med Night Sleep [address] [place], [place] [id number] 02/11/2025 1:30 PM EDT Office Visit Dermatology [facility] 200 [facility] [place], [place] [address] Juanito Browning MD [address] [place] [address] 02/17/2025 11:30 AM EDT Office Visit Cardiology, [facility] 132 [facility] [place] [address] Uriel Warren, DO 132 [facility] [place] [address] 02/17/2025 2:30 PM EDT Office Visit Hematology/Oncolog y [facility] 200 [facility] [place] [id number] Leonarda Trevino CRNP [address] [place] [address] 03/23/2025 8:30 AM EDT Office Visit Pulmonary Medicine, [facility] 132 [facility] [place] [address] Marino Rodriguez MD [address] [place] [address] 05/04/2025 9:30 AM EDT Office Visit Pulmonary Medicine, [facility] [address] [place] [address] Marino Rodriguez MD [address] [place] [address] 05/06/2025 8:00 AM EDT Hospital Encounter ENDO OSSC, Endoscopy Room [facility] [address] [place] [address] Dallas Askew MD [address] [place] [address] 05/06/2025 8:00 AM EDT - 05/06/2025 8:30 AM EDT Surgery ENDO [facility], Endoscopy Room [facility] [address] [place] [phone] Dallas Askew MD [address] [place] [address] COLONOSCOPY FLEXIBLE PROXIMAL DIAGNOSTIC Scheduled Procedures Name Priority Associated Diagnoses Date/Ti me COLONOSCOPY FLEXIBLE PROXIMAL DIAGNOSTIC Recall History of colon polyps Family history of colonic polyps 05/06/2025 8:00 AM EDT Health Maintenance Due Date Last Done Comments Hepatitis C Screening 02/02/1973 Cologuard 1999 Fecal Occult Blood Test 1999 Sigmoidoscopy 1999 Adult Wellness Visit 02/02/2020 COVID-19 Vaccine (8 - Moderna risk season) 2025 08/21/2024, 07/10/2023, 08/23/2022, Additional history exists HOME [...] this encounter Medical Devices Implanted Type Area Lead Net Software Developer Device Identifier Shelf Expiration Date Model / Serial / Lot Marker Coronary [facility] - [id number] Implanted:Qty: 2 on 11/10/2015 by [place] Colón [place] [facility]: Heart [employer] AM-SD / / [id number] Valve Heart Aortic Epic 25mm - [id number] - [id number] Implanted:Qty: 1 on 11/10/2015 by Jorge Colón [place] [facility] N/A: Heart ST LENNY : CARDIOVASCULAR 03/05/2019 HSV513-3 5-00 / [id number] / Sut Steel 6 M654g - [id number] Implanted:Qty: 4 on 11/10/2015 by Jorge Colón [place] [facility]/A: Chest JNJ : [employer] M654G / / Lens Intraoc 16.5 - [id number] - [id number] Implanted:Qty: 1 on 08/22/2020 by Pola Lozano MD at OR [facility] Right: Eye [employer]OM[employer] 02/09/2025 [id number] 5 / [id number] / [id number] Lens Intraoc 16.0 - [id number] - [id number] Implanted:Qty: 1 on 09/05/2020 by Pola Lozano MD at OR [facility] Left: Eye [employer]OMB 02/09/2025 [id number] 0 / [id number] / [id number] Clip Quick 2.8mm 230cm - [id number] Implanted:Qty: 1 on 04/23/2021 by Dallas Askew MD at ENDOSCOPY [facility] Colon [employer] 12/11/2023 HX-202UR .A / / 13K Cath Thermodilution 6fr - [id number] Implanted:Qty: 1 on 04/09/2024 by Jose Cruz Hill DO at [facility] [employer] [id number] 10/27/2025 [id number] / / [id number] Stent Xience Skypoint 3.25x15 - [id number] Implanted:Qty: 1 on 04/09/2024 by Jose Cruz Hill DO at [facility] [employer] : VASCULAR DEVICES 01/04/2027 [id number] / / [id number] documented as of this encounter Advance Directives * Full Code [...] Power of Attor baldev? No Care Teams Director Financial Planning Relationship Specialty Start Date End Date Chelle Vasquez DO [address] [place] [address] PCP - General Family Medicine 03/30/24 documented as of this encounter
--- OUTSIDE RECORDS SUMMARY | 2024-12-08 08:14 | External Medical Summary | Summary of Care ---
Author Name Unknown Organization [facility] Address [address] [facility] [place] [address] Phone [phone] Care Team Providers Care Pathologist Assistant Name Role Phone Chelle Vasquez DO Primary Care Provider Encounter Details Date Type Department Care Team (Late st Contact Info) Description 11/27/2024 Orders Only PATIENT PORTAL DO NOT DELETE THIS DEPT USED BY [place] [id number] Allergies Active Allergy Reactions Criticality Noted Date Comments Allopurinol Rash 04/17/2020 Pollen 04/22/2012 Seasonal allergies Molds & Smuts 07/01/2022 documented as of this encounter (statuses as of 11/27/2024) Medications Fexofenadine HCl 180 MG Oral Tablet Take 1 Tablet by mouth in the morning. Active Vitamin D 50 MCG (1999 UT) Oral Capsule Take 2,000 Units by mouth [...] Respimat 2.5 MCG/ACT Inhalation Aerosol Solution (Tiotropium [place] Monohydrate) Inhale 2 Puffs by mouth in [...] as of this encounter (statuses as of 11/27/2024) Active Problems Problem Noted Date Diagnosed Date [...] prox RCA 80% stenosis with placement of 3.71y16op Xience Skypoint WEST, post-dilated with 3.5mm NC Balloon reducing stenosis to 0% with JAMES 3 flow Essential (primary) hypertension 12/08/2023 Hyperlipidemia 12/08/2023 Atherosclerosis of [place] ronary artery without angina pectoris 12/08/2023 [...] Hx of BCC left posterior scalp - 2012 Hx of BCC left posterior neck - [...] as of this encounter (statuses as of 11/27/2024) Resolved Problems Problem Noted Date Diagnosed Date [...] as of this encounter (statuses as of 11/27/2024) Immunizations Name Administration Dates Next Due COVID-19 [...] AM EST documented as of this encounter Functional Status * Are you [...] Lavonne Bermudez RN documented in this encounter Plan of Treatment Upcoming Encounters Date Type Department Care Team (Latest Contact Info) Description 12/14/2024 8:40 AM EST Office Visit Family Practice [address] [place] [address] [address] [place] [address] Chelle Vasquez DO [address] [place] [address] 01/03/2025 11:00 AM EDT Office Visit Cardiology, [facility] [place] [address] Uriel Warren, DO [facility] [address] 01/06/2025 8:30 PM EDT PulmDiagnostic Sleep Lab, [facility] 400 [facility] [place] [address] [facility], Sleep Med Night Sleep 400 [facility] [place] [address] 02/11/2025 1:30 PM EDT Office Visit Dermatology [facility] 200 [place] [address] Juanito Browning MD [address] [place] [address] 02/17/2025 11:30 AM EDT Office Visit Cardiology, [facility] [address] [place] [address] Uriel Warren DO [address] [place] [address] 02/17/2025 2:30 PM EDT Office Visit Hematology/Oncolog y [facility] [address] [place], [place] [phone] Leonarda Trevino CRNP [address] [place] [address] [place] [address] 03/23/2025 8:30 AM EDT Office Visit Pulmonary Medicine, [facility] 132 [facility] [place] [address] Marino Rodriguez MD [address] [place] [address] 05/04/2025 9:30 AM EDT Office Visit Pulmonary Medicine, [facility] [address] [place] [address] Marino Rodriguez MD [address] [facility] [place] [address] 05/06/2025 8:00 AM EDT Hospital Encounter ENDO OSSC, Endoscopy Room [facility] [address] [place] [phone] Dallas Askew MD [address] [place] [address] 05/06/2025 8:00 AM EDT - 05/06/2025 8:30 AM EDT Surgery ENDO OSSC, Endoscopy Room [facility] [address] [place] [phone] Dallas Askew MD [address] [place] [address] COLONOSCOPY FLEXIBLE PROXIMAL DIAGNOSTIC Scheduled Procedures Name [...] this encounter Medical Devices Implanted Type Area Reinsurance Clerk Device Identifier Shelf Expiration Date Model / Serial / Lot Marker Coronary [facility]-S[facility] - [id number] Implanted:Qty: 2 on 11/10/2015 by [place] Colón [place] [facility]: Heart [employer] [facility]-SD / / [id number] Valve Heart Aortic Epic 25mm - [id number] - [id number] Implanted:Qty: 1 on 11/10/2015 by Jorge Colón [place] [facility]/A: Heart ST LENNY : CARDIOVASCULAR 03/05/2019 WIL735-1 5-00 / [id number] 1 / Sut Steel 6 M654g - [id number] Implanted:Qty: 4 on 11/10/2015 by Jorge Colón [place] [facility]A: Chest JNJ : [employer] M654G / / Lens Intraoc 16.5 - [id number] - [id number] Implanted:Qty: 1 on 08/22/2020 by Pola Lozano MD at OR [facility] Right: Eye BAUSCH [employer] LOMB 02/09/2025 [id number] 5 / [id number] / [id number] Lens Intraoc 16.0 - [id number] - [id number] Implanted:Qty: 1 on 09/05/2020 by Pola Lozano MD at OR [facility] Left: Eye BAUSCH [employer] LOMB 02/09/2025 [id number] 0 / [id number] / [id number] Clip Quick 2.8mm 230cm - [id number] Implanted:Qty: 1 on 04/23/2021 by Dallas Askew MD at ENDOSCOPY [facility] Colon [employer] 12/11/2023 HX-202UR .A / / 13K Cath Thermodilution 6fr - [id number] Implanted:Qty: 1 on 04/09/2024 by Jose Cruz Hill DO at [facility] [employer] [id number] 10/27/2025 [id number] / / [id number] Stent Xience Skypoint 3.25x15 - [id number] Implanted:Qty: 1 on 04/09/2024 by Jsoe Cruz Hill DO at [facility] [employer] : VASCULAR DEVICES 01/04/2027 [id number] / / [id number] documented as of this encounter Advance Directives [...] Power of Attor baldev? No Care Teams Pathologist Assistant Relationship Specialty Start Date End Date Chelle Vasquez DO 293 [place] [address] PCP - General Family Medicine 03/30/24 documented as of this encounter
--- OUTSIDE RECORDS SUMMARY | 2024-12-08 08:14 | External Medical Summary | Summary of Care ---
Author Name Unknown Organization [facility] Address [address] [facility] [address] Phone [phone] Care Team Providers Care Editor In Chief Newspaper Name Role Phone Chelle Vasquez DO Primary Care Provider [phone] Reason for Visit * Reason Onset Date Comments Advice 10/27/202411/02 Information 10/27/202410/28 Test Results 10/27/202410/29 Encounter Details Date Type Department Care Team (Late st Contact Info) Description 10/27/2024 Telephone Family Practice [address] [facility], [place] [address] [place] [phone] Chelle Vasquez DO [address] [place] [address] Advice (11/02); Information (10/28); Test Re... Allergies Active Allergy Reactions Criticality Noted Date Comments Allopurinol Rash 04/17/2020 Pollen 04/22/2012 Seasonal allergies Molds & Smuts 07/01/2022 documented as of this encounter (statuses as of 12/02/2024) Medications Fexofenadine HCl 180 MG Oral Tablet Take 1 Tablet by mouth in the morning. Active Vitamin D 50 MCG (2000 UT) Oral Capsule Take 2,000 Units by [...] start before April 10, 2024. 90 Tablet 04/10/20 24 Active Clopidogrel Bisulfate 75 MG Oral Tablet (pLAVix) Take 1 Tablet by mouth in the morning. Do not start before April 10, 2024. 90 Tablet 04/10/20 24 Active Amoxicillin 500 MG Oral Capsule (Amoxil) Take 4 Capsules by mouth daily as needed (dental appointments). Active Omeprazole 20 MG Oral Capsule Delayed Release (PriLOSEC) Take 1 Capsule by mouth at bedtime. 90 Capsule 05/31/20 24 Active Ezetimibe 10 MG Oral [...] Respimat 2.5 MCG/ACT Inhalation Aerosol Solution (Tiotropium [place] Monohydrate) Inhale 2 Puffs by mouth in the morning. 4 g 10 5 11:24 AM EST 09/14/20 24 Active HumidifierIndi cations:Hodgki n lymphoma, unspecified Hodgkin lymphoma type, unspecified body region (HCC) Humidifier for oxygen concentrator 2 Each 10/08/20 24 Active Compressor NebulizerIndic ations:Hodgkin lymphoma, unspecified Hodgkin lymphoma type, unspecified body region (HCC),Wheezing ,Chronic pleural effusion Inhale via nebulizer. Use as directed. 1 Each 10/11/20 24 Active Probenecid 500 MG Oral Tablet (Benemid) Take 1 Tablet by mouth in the morning and 1 Tablet before bedtime. 60 Tablet 5 03/23/20 24 2024 Discontinued(R efill) Torsemide 20 MG Oral Tablet (Demadex) Take 1 Tablet by mouth in the morning. 90 Tablet 3 04/09/20 24 2024 Discontinued Ventolin HFA 108 (90 Base) MCG/ACT Inhalation Aerosol Solution Inhale 2 Puffs by mouth as needed for Cough or Wheezing. 18 g 3 06/29/20 24 2024 Discontinued(R efill) Lisinopril 10 MG Oral Tablet (Prinivil) Take 0.5 Tablets by mouth in the morning. 90 Tablet 3 06/29/20 24 2024 Discontinued(M edication List Clean Up) Fluticasone-Sa lmeterol 115-21 MCG/ACT Inhalation Aerosol (Advair HFA) Inhale 2 Puffs by mouth in the morning and 2 Puffs before bedtime. 12 g 12 4 5:38 PM EST 07/26/20 24 2024 Discontinued(M edication List Clean Up) Fluticasone-Sa lmeterol 115-21 MCG/ACT Inhalation Aerosol (Advair HFA) Inhale 2 Puffs by mouth in the morning and 2 Puffs before bedtime. 12 g 12 07/26/20 24 2024 Discontinued(M edication List Clean Up) Clotrimazole 10 MG Mouth/Throat Coral (Mycelex Coral)Indicat ions:Thrush Take 1 Lozenge by mouth 5 times a day for 14 days. Allow tablet to slowly dissolve in your mouth 70 Coral 4 4:44 PM EDT 08/06/20 24 2024 Discontinued(M edication List Clean Up) documented as of this encounter (statuses as of 12/02/2024) Active Problems Problem Noted Date Diagnosed Date [...] prox RCA 80% stenosis with placement of 3.34y85ja Xience Skypoint WEST, post-dilated with 3.5mm NC Balloon reducing stenosis to 0% with JAMES 3 flow Essential (primary) hypertension 12/08/2023 Hyperlipidemia 12/08/2023 Atherosclerosis of [place] co ronary artery without angina pectoris 12/08/2023 [...] as of this encounter (statuses as of 12/02/2024) Resolved Problems Problem Noted Date Diagnosed Date [...] as of this encounter (statuses as of 12/02/2024) Immunizations Name Administration Dates Next Due COVID-19 [...] 09/27/2024 Does the household have a re gular source of income? (Household - for ages [...] Lavonne Bermudez RN documented in this encounter Miscellaneous Notes * Telephone Encounter - Rea Benitez LPN - 11/02/2024 4:49 PM EST Call placed to patient and relayed information from Dr. Vasquez. Pt acknowledged understanding. Will stop at [facility] tomorrow for labs and CXR before before coming here. desk officer - please place on Dr. Vasquez schedule at 8:30 tomorrow. * Telephone Encounter - Chelle Vasquez DO - 11/02/2024 4:35 PM EST Sound like pt having symptoms of HF. Complete lab studies and CXR prior to coming in with me. Overbook with me at 830 AM tomorrow, stop at [facility] on [address] in. * Telephone Encounter - Rea Benitez LPN - 11/02/2024 4:16 PM EST Call placed to patient. States still has swelling. States right leg now more swollen than his left.States he took an extra demadex today. No real change in symptoms. When going up steps, needs to rest at the top. When walking distance, needs to rest and does have some shortness of breath. Using nebulizer in am and pm. Trying to elevate legs as able. States if he lays flat, feels like he can't catch his breath. Has pulmonology appt tomorrow. Cardiology appt 11/24/24. * Telephone Encounter - Chelle Vasquez DO - 11/02/2024 4:06 PM EST Please see how pt is doing. Is left leg improved at all? Any changes to symptoms? * Telephone Encounter - Rea Benitez LPN - 10/29/2024 3:16 PM EST Call placed to patient and relayed information from Dr. Aden. Pt acknowledged understanding. States legs are a little less swollen today. * Telephone Encounter - Jamey Aden DO - 10/29/2024 3:11 PM EST No DVT on doppler * Telephone Encounter - Rea Benitez LPN - 10/29/2024 3:04 PM EST Vascular duplex completed and resulted. * Telephone Encounter - Aeme Lakhani OSA - 10/28/2024 4:08 PM EST noted * Telephone Encounter - Rea Benitez LPN - 10/28/2024 3:34 PM EST Spoke to Dr. Vasquez - this date and time is ok. * Telephone Encounter - Amee Lakhani OSA - 10/28/2024 3:21 PM EST Patient contacted and requests test @ [facility] for 10/29/24 @ 1:45 arrival for a 2:00 appointment. Patient accepted date and time. * Telephone Encounter - Rea Benitez LPN - 10/28/2024 3:04 PM EST Call placed to patient and relayed information from Dr. Vasquez. Pt acknowledged understanding. Agreeable to vascular duplex. Pt states he has already contacted GI to reschedule colonoscopy. States he is awaiting a call back to reschedule. desk officer - please assist with scheduling Vascular duplex DEON. * Telephone Encounter - Chelle Vasquez DO - 10/28/2024 2:57 PM EST Order placed of LE to r/o clot. He should schedule DEON. I would advise pt cancel colonoscopy with his other complaints. * Telephone Encounter - Rea Benitez LPN - 10/28/2024 12:31 PM EST Call placed to patient. He reports symptoms started around Esmer. Reports swelling left leg - mid thigh to foot. States tops of both feet are swollen - left more that right. States occasional pain, slight redness. Does not think he has cellulitis. No open areas/wounds. States has been taking additional demadex as he was advised to do by Cardiology with little relief. States swelling worsens as the day progresses. Denies chest pain, but having more difficulty going up/down steps and moving around. No shortness of breath, but breathing shallow. More fatigued - not sleeping well at night. Sleeping with HOB elevated. Using O2 at hs and albuterol neb 1-2 times/day. States he has no bronchial obstruction, no wheezing. Questioning if could be lymphedema d/t h/o Hodgkins lymphoma. Pt also waiting to hear about sleep study. Please advise. * Telephone Encounter - Chelle Vasquez DO - 10/28/2024 7:35 AM EST Do not see pt called back. Can we try him again today? * Telephone Encounter - Valerie Vargas LPN - 10/27/2024 10:34 AM EST Called, left message for patient to return call. Attempted to call patient, there was no answer, left voicemail. When patient returns call, ok for JIM to relay message, please refer to below documentation. If needed, can transfer to dedicated nurse line. How long has this been going on? Any open areas? Chest pain or sob? Thank you * Telephone Encounter - Dionna Granger RT (R) - 10/27/2024 9:44 AM EST Patient having swelling in left leg down to feet, hurts down to ankle, hard to get shoes on, somewhat warm to touch, not red. Please advise. documented in this encounter Plan of Treatment Upcoming Encounters Date Type Department Care Team (Latest Contact Info) Description 12/09/2024 10:30 AM EST Laboratory Laboratory, [facility] [address] [facility] [place] [phone] Maliha Seay [facility] [address] [facility] [place] [address] 12/14/2024 8:40 AM EST Office Visit Family Practice [address] [place] [address] [address] [place] [address] Chelle Vasquez DO [address] [place] [address] 01/03/2025 11:00 AM EDT Office Visit Cardiology, [facility] [address] [facility] [place] [address] Uriel Warren DO 132 [facility] [place] [address] 01/06/2025 8:30 PM EDT PulmDiagnostic Sleep Lab, [facility] [address] [place] [phone] [facility], Sleep Med [facility] [address] [facility] [place] [id number] 02/11/2025 1:30 PM EDT Office Visit Dermatology [facility] [address] [facility] [place], [place] [address] Juanito Browning MD [address] [place] [address] 02/17/2025 11:30 AM EDT Office Visit Cardiology, [facility] [address] [facility] [place] [address] Uriel Warren O, DO [address] [facility] [place] [address] 02/17/2025 2:30 PM EDT Office Visit Hematology/Oncolog y [facility] [address] [facility] [place], [place] [phone] Leonarda Trevino CRNP [address] [place], [place] [address] [address] 03/23/2025 8:30 AM EDT Office Visit Pulmonary Medicine, [facility] [address] [facility] [place] [address] Marino Rodriguez MD [address] [place] [address] 05/04/2025 9:30 AM EDT Office Visit Pulmonary Medicine, [facility] [address] [facility] [place] [address] Marino Rodriguez MD [address] [place] [address] 05/06/2025 8:00 AM EDT Hospital Encounter ENDO [facility], [facility] [address] [facility] [place] [phone] Dallas Askew MD [address] [place] [address] 05/06/2025 8:00 AM EDT - 05/06/2025 8:30 AM EDT Surgery ENDO [facility], Endoscopy Room [facility] [address] [place] [phone] Dallas Askew MD [address] [place] [address] COLONOSCOPY FLEXIBLE PROXIMAL DIAGNOSTIC Scheduled Procedures Name [...] this encounter Medical Devices Implanted Type Area Chrome Polisher Device Identifier Shelf Expiration Date Model / Serial / Lot Marker Coronary [facility] - [id number] Implanted:Qty: 2 on 11/10/2015 [place] [facility] [place] Heart [employer] [facility] / / [id number] Valve Heart Aortic Epic 25mm - [id number] - [id number] Implanted:Qty: 1 on 11/10/2015 by Jorge Colón [place] [facility]/A: Heart [facility] : CARDIOVASCULAR 03/05/2019 [id number] / [id number] / Sut Steel 6 M654g - [id number] Implanted:Qty: 4 on 11/10/2015 by Jorge Colón [place] [facility] [place]/A: Chest JN[place] : [employer] M654G / / Lens Intraoc 16.5 - [id number] - [id number] Implanted:Qty: 1 on 08/22/2020 by Pola Lozano MD at OR [facility] Right: Eye [employer] LOMB 02/09/2025 [id number] / [id number] / [id number] Lens Intraoc 16.0 - [id number] - [id number] Implanted:Qty: 1 on 09/05/2020 by Pola Lozano MD at OR [facility] Left: Eye BAUSCH [employer] LOMB 02/09/2025 [id number] / [id number] / [id number] Clip Quick 2.8mm 230cm - [id number] Implanted:Qty: 1 on 04/23/2021 by Dallas Askew MD at ENDOSCOPY [facility] Colon Site Lock INC 12/11/2023 [id number] / / 13K Cath Thermodilution 6fr - [id number] Implanted:Qty: 1 on 04/09/2024 by Jose Cruz Hill DO at [facility] [employer] [id number] 10/27/2025 [id number] / / [id number] Stent Xience Skypoint 3.25x15 - [id number] Implanted:Qty: 1 on 04/09/2024 by Jose Cruz Hill DO at [facility] [employer] : VASCULAR DEVICES 01/04/2027 [id number] / / [id number] documented as of this encounter Procedures Procedure Name Priority Date/Time Associated Diagnosis Comments VASC DUPLEX VENOUS LE BILAT STAT 10/29/2024 2:40 PM EST Localized edema documented in this encounter Results * XR CHEST 2 VIEWS (11/03/2024 8:13 AM EST) Anatomical Region Laterality Modality Chest Digital Radiogra phy 11/03/2024 8:41 AM EST Impressions 11/03/2024 8:39 AM EST IMPRESSION: Persistent moderate right pleural effusion with associated atelectasis. Superimposed infection cannot be excluded. Narrative 11/03/2024 8:39 AM EST EXAM: EXAM: XR CHEST 2 VIEWS DATE TIME: 11/03/2024 - 11/03/2024 8:13 am HISTORY: 69 y/o M KUHN, orthopnea COMPARISON: CT chest dated 03/31/2024 FINDINGS: Persistent moderate right pleural effusion with associated atelectasis. Superimposed infection cannot be excluded. Left lung is clear. No pneumothorax. Cardiomediastinal contours are stable. Median sternotomy. Degenerative changes of the spine. Procedure Note Nichole Johnson MD - 11/03/2024 EXAM: EXAM: XR CHEST 2 VIEWS DATE TIME: 11/03/2024 - 11/03/2024 8:13 am HISTORY: 69 y/o M KUHN, orthopnea COMPARISON: CT chest dated 03/31/2024 FINDINGS: Persistent moderate right pleural effusion with associated atelectasis.Superimposed infection cannot be excluded. Left lung is clear. Nopneumothorax. Cardiomediastinal contours are stable. Median sternotomy.Degenerative changes of the spine. IMPRESSION IMPRESSION: Persistent moderate right pleural effusion with associated atelectasis.Superimposed infection cannot be excluded. Chelle Vasquez DO RADIOLOGY (RAD GENERAL) Payal l Result * (ABNORMAL) BNP, NT-PRO (11/03/2024 7:59 AM EST) BNP, NT-Pro 796(H) <300 pg/mL 11/03/2024 2:20 PM EST [facility] Blood Venous blood specimen / Unknown Venipuncture / Unknown 11/03/2024 7:59 AM EST 11/03/2024 7:59 AM EST Narrative [facility] - 11/03/2024 2:20 PM EST Exclude Heart Failure: <300 pg/mL Diagnose Heart Failure: Age <50 yr: >450 pg/mL 50-75 yr: >900 pg/mL >75 yr: >1800 pg/mL GFR is 30-59 mL/min: >1200 pg/mL or Age-adjusted values GFR <30 mL/min: do not use, not reliable Prognostic threshold: 1000 pg/mL Chelle Vasquez DO LAB BLOOD ORDERABLES Final R esult [facility] [address] [place] [address] * (ABNORMAL) CBC (11/03/2024 7:59 AM EST) WBC 6.00 4.00 - 10.80 K/uL 11/03/2024 8:16 AM EST [facility]ORY [facility]-10 RBC 3.71 4.50 - 5.25 M/uL 11/03/2024 8:16 AM EST [facility]10 HGB 11.6(L) 14.0 - 16.8 g/dL 11/03/2024 8:16 AM EST [facility]10 HCT 36.2(L) 40.0 - 48.4 % 11/03/2024 8:16 AM EST [facility]10 MCV 97.6 82.0 - 99.5 fL 11/03/2024 8:16 AM EST LAB[facility] 57-10 MCH 31.3 27.0 - 34.0 pg 11/03/2024 8:16 AM EST LAB[facility]ORY [facility] 57-10 MCHC 32.0 32.0 - 36.0 g/dL 11/03/2024 8:16 AM EST LAB[facility]ORY [facility] 57-10 RDW 15.0 11.5 - 15.5 % 11/03/2024 8:16 AM EST LABORATORY [facility] 57-10 PLT 330 140 - 400 K/uL 11/03/2024 8:16 AM EST LAB[facility]ATORY [facility] 57-10 MPV 9.6 6.6 - 11.1 fL 11/03/2024 8:16 AM EST LAB[facility]ORY [facility] 57-10 Blood Venous blood specimen / Unknown Venipuncture / Unknown 11/03/2024 7:59 AM EST 11/03/2024 7:59 AM EST Chelle Vasquez DO LAB BLOOD ORDERABLES Final R esult LAB[facility]ATORY [facility] [address] [place] [address] * (ABNORMAL) BASIC METABOLIC PANEL (11/03/2024 7:59 AM EST) BUN 24(H) 6 - 20 mg/dL 11/03/2024 8:34 AM EST LAB[facility]ATORY [facility] 57-10 CREATININE 1.4(H) 0.6 - 1.2 mg/dL 11/03/2024 8:34 AM EST LAB[facility]ORY [facility] 57-10 EGFR 56(L) >=60 mL/min 11/03/2024 8:34 AM EST LAB[facility]ORY [facility] 57-10 Comment:eGFR is calculated b ased on the CKD-EPI 2020 equation. SODIUM 139 135 - 146 mmol/L 11/03/2024 8:34 AM EST LAB[facility]ORY [facility] 57-10 POTASSIUM 4.8 3.5 - 5.1 mmol/L 11/03/2024 8:34 AM EST LAB[facility] 57-10 CHLORIDE 98 98 - 107 mmol/L 11/03/2024 8:34 AM EST [facility]10 CO2 32 22 - 32 mmol/L 11/03/2024 8:34 AM EST LAB[facility]ATORY [facility] 57-10 ANION GAP 9 7 - 15 mmol/L 11/03/2024 8:34 AM EST [facility] 57-10 GLUCOSE 110 70 - 120 mg/dL 11/03/2024 8:34 AM EST LAB[facility]ATORY [facility] 57-10 CALCIUM 9.4 8.4 - 10.2 mg/dL 11/03/2024 8:34 AM EST [facility] 57-10 Blood Venous blood specimen / Unknown Venipuncture / Unknown 11/03/2024 7:59 AM EST 11/03/2024 7:59 AM EST Chelle Vasquez DO LAB BLOOD ORDERABLES Final R esult LABORATORY [facility] 57-10 [address] [place] [address] * VASC DUPLEX VENOUS LE BILAT (10/29/2024 2:40 PM EST) Anatomical Region Laterality Modality Lower Extremity, Vascular Ultras ound 10/29/2024 2:48 PM EST Impressions 10/29/2024 2:46 PM EST IMPRESSION 1. No deep venous thrombosis. 2. Mild edema left lower leg. Narrative 10/29/2024 2:46 PM EST EXAM Bilateral leg - VASC DUPLEX VENOUS LE BILAT-10/29/2024 2:40 pm HISTORY Left leg venous duplex ultrasound 02/20/2024 COMPARISON NONE. TECHNIQUE Duplex ultrasound with color Doppler and waveform analysis FINDINGS Venous flow, compression, augmentation and no internal echoes bilaterally in the common femoral, deep femoral, femoral and popliteal veins. Venous flow, compression and no internal echoes bilaterally in the greater saphenous veins and in the lower legs in the posterior tibial and peroneal veins. Mild edema left lower leg. Procedure Note Carlos Ludwig MD - 10/29/2024 EXAM Bilateral leg - VASC DUPLEX VENOUS LE BILAT-10/29/2024 2:40 pm HISTORY Left leg venous duplex ultrasound 02/20/2024 COMPARISON NONE. TECHNIQUE Duplex ultrasound with color Doppler and waveform analysis FINDINGS Venous flow, compression, augmentation and no internal echoes bilaterallyin the common femoral, deep femoral, femoral and popliteal veins. Venousflow, compression and no internal echoes bilaterally in the greatersaphenous veins and in the lower legs in the posterior tibial and peronealveins. Mild edema left lower leg. IMPRESSION IMPRESSION 1. No deep venous thrombosis. 2. Mild edema left lower leg. Chelle Vasquez DO RAD VASCULAR Final Result documented in this encounter Visit Diagnoses Diagnosis Localized edema- Primary Edema KUHN (dyspnea on exertion) Other dyspnea and respiratory abnormality Localized edema Edema KUHN (dyspnea on exertion) Other dyspnea and respiratory abnormality History of colon polyps Personal history of [...] Power of Attor baldev? No Care Teams Editor In Chief Newspaper Relationship Specialty Start Date End Date Chelle Vasquez DO [address] [place] [address] PCP - General Family Medicine 03/30/24 documented as of this encounter
--- OUTSIDE RECORDS SUMMARY | 2024-12-08 08:14 | External Medical Summary | Summary of Care ---
Author Name Unknown Organization [facility] Address [address] [place] [address] Phone [phone] Care Team Providers Care Post Framer Name Role Phone Chelle Vasquez DO Primary Care Provider Encounter Details Date Type Department Care Team (Late st Contact Info) Description 11/25/2024 Telephone Cardiology, [facility] [address] [place] [address] Tracey Cole CRNP [address] [place], [place] [phone] Allergies Active Allergy Reactions Criticality Noted Date Comments Allopurinol Rash 04/17/2020 Pollen 04/22/2012 Seasonal allergies Molds & Smuts 07/01/2022 documented as of this encounter (statuses as of 11/25/2024) Medications Fexofenadine HCl 180 MG Oral Tablet [...] Tablet by mouth in the morning. 08/27/20 23 Active Carvedilol 3.125 MG Oral Tablet (Coreg) [...] April 10, 2024. 90 Tablet 3 04/10/20 Active Amoxicillin 500 MG Oral Capsule (Amoxil) [...] Respimat 2.5 MCG/ACT Inhalation Aerosol Solution (Tiotropium [place] Monohydrate) Inhale 2 Puffs by mouth in the morning. 4 g 10 5 11:24 AM EST 09/14/20 Active HumidifierIndic ations:Hodgkin lymphoma, unspecified Hodgkin lymphoma [...] In the morning.. 09/21/20 24 Active Torsemide 40 MG Oral Tablet Take 40 mg by mouth in the morning. 11/25/19 25 Active Torsemide 20 MG Oral Tablet (Demadex) Take 1 Tablet by mouth in the morning. 90 Tablet 3 04/09/20 24 2024 Discontinued documented as of this encounter (statuses as of 11/25/2024) Active Problems Problem Noted Date Diagnosed Date [...] prox RCA 80% stenosis with placement of 3.24q57li Xience Skypoint WEST, post-dilated with 3.5mm NC Balloon reducing stenosis to 0% with JAMES 3 flow Essential (primary) hypertension 12/08/2023 Hyperlipidemia 12/08/2023 Atherosclerosis of [place] co ronary artery without angina pectoris 12/08/2023 [...] as of this encounter (statuses as of 11/25/2024) Resolved Problems Problem Noted Date Diagnosed Date [...] as of this encounter (statuses as of 11/25/2024) Immunizations Name Administration Dates Next Due COVID-19 [...] No 09/27/2024 Does the household have a [facility] source of income? (Household - for ages [...] 8:40 AM EST Office Visit Family Practice [address] [place] [address] [address] [place] [address] Chelle Vasquez DO [address] [place] [address] 01/03/2025 11:00 AM EDT Office Visit Cardiology, [facility] 132 [facility] [place] [address] Uriel Warren, DO 132 [facility] [place] [address] 01/06/2025 8:30 PM EDT PulmDiagnostic Sleep Lab, [facility] [address] [place] [id number] [facility], Sleep [facility] [address] 02/11/2025 1:30 PM EDT Office Visit Dermatology [facility] 200 [facility] [place], [place] [address] Juanito Browning MD 16 [place] [address] 02/17/2025 11:30 AM EDT Office Visit Cardiology, [facility] 132 [facility] [place] [address] Uriel Warren, DO 132 [facility] [place] [address] 02/17/2025 2:30 PM EDT Office Visit Hematology/Oncolog y [facility] 200 [facility] [place] [phone] Leonarda Trevino CRNP [address] [place] [address] [place] [address] 03/23/2025 8:30 AM EDT Office Visit Pulmonary Medicine, [facility] 132 [facility] [place] [address] Marino Rodriguez MD [address] [place] [address] 05/04/2025 9:30 AM EDT Office Visit Pulmonary Medicine, [facility] 132 [facility] [place] [address] Marino Rodriguez MD [address] [place] [address] 05/06/2025 8:00 AM EDT Hospital Encounter ENDO [facility], [facility] [place] [phone] Dallas Askew MD [address] [place] [address] 05/06/2025 8:00 AM EDT - 05/06/2025 8:30 AM EDT Surgery ENDO [facility], Endoscopy Room [facility] [address] [place] [address] Dallas Askew MD [address] [place] [address] COLONOSCOPY FLEXIBLE PROXIMAL DIAGNOSTIC Scheduled Orders Name Type Priority Associated Diagnoses Orde r Schedule BASIC METABOLIC PANEL Lab Routine Acute on chronic heart failure with preserved ejection fraction (HCC) Expected: 12/09/2024, Expires: 11/25/2025 Scheduled Procedures Name Priority Associated Diagnoses Date/Ti me COLONOSCOPY FLEXIBLE PROXIMAL DIAGNOSTIC Recall History of colon polyps Family history of colonic polyps 05/06/2025 8:00 AM EDT Health Maintenance Due Date Last Done Comments Hepatitis C Screening 02/02[birth year]1972 Cologuard 1999 Fecal Occult Blood Test 1999 Sigmoidoscopy 1999 Adult Wellness Visit 02/02/2020 HOME BP CUFF VALIDATION YEARLY 03/04/2025 03/04/2024 [...] Completed 02/2024, 07/25/2023, 07/26/2022, Additional history exists COVID-19 Vaccine Completed 08/21/2024, , 08/23/2022, Additional history exists HPV (Gardasil) Vaccine Aged Out No lo nger eligible based on patient's age to complete this topic MENINGOCOCCAL (MENACTRA/MENVEO) Aged Out No longer eligible based on patient's age to complete this topic documented as of this encounter Medical Devices Implanted Type Area System Designer Device Identifier Shelf Expiration Date Model / Serial / Lot Marker Coronary [facility]-Sd - [id number] Implanted:Qty: 2 on 11/10/2015 by Jorge Colón MD at OR [facility] N/A: Heart [employer]SEE [employer] [facility]-SD / / [id number] Valve Heart Aortic Epic 25mm - [id number] - [id number] Implanted:Qty: 1 on 11/10/2015 by Jorge Colón MD at OR [facility] N/A: Heart ST LENNY : CARDIOVASCULAR 03/05/2019 [id number] 5-00 / [id number] / Sut Steel 6 M654g - [id number] Implanted:Qty: 4 on 11/10/2015 by Jorge Colón MD at OR [facility] N/A: Chest JNJ : [employer] M654G / / Lens Intraoc 16.5 - [id number] - [id number] Implanted:Qty: 1 on 08/22/2020 by Pola Lozano MD at OR [facility] Right: Eye BAUSCH & LOMB 02/09/2025 [id number] 5 / [id number] / [id number] Lens Intraoc 16.0 - [id number] - [id number] Implanted:Qty: 1 on 09/05/2020 by Pola Lozano MD at OR [facility] Left: Eye BAUSCH & LOMB 02/09/2025 [id number] 0 / [id number] / [id number] Clip Quick 2.8mm 230cm - [id number] Implanted:Qty: 1 on 04/23/2021 by Dallas Askew MD at ENDOSCOPY [facility] Colon [employer] 12/11/2023 HX-202UR .A / / 13K Cath Thermodilution 6fr - [id number] Implanted:Qty: 1 on 04/09/2024 by Jose Cruz Hill, DO at CARDIAC LABS [facility] [employer] DYLAN [id number] 10/27/2025 [id number] / / [id number] Stent Xience Skypoint 3.25x15 - [id number] Implanted:Qty: 1 on 04/09/2024 by Jose Cruz Hill, DO at CARDIAC LABS [facility] [employer]STELLANOS LABS : VASCULAR DEVICES 01/04/2027 [id number] / / [id number] documented as of this encounter Visit Diagnoses Diagnosis Acute on chronic heart failure with preserved ejection fraction (HCC)- Primary History of colon polyps Personal history of [...] Power of Attor baldev? No Care Teams Post Framer Relationship Specialty Start Date End Date Chelle Vasquez DO [address] [place] [address] PCP - General Family Medicine 03/30/24 documented as of this encounter
--- OUTSIDE RECORDS SUMMARY | 2024-12-08 08:14 | External Medical Summary | Summary of Care ---
Author Name Unknown Organization [facility] Address [address] [facility] [address] Phone [phone] Care Team Providers Care Printer Floor Covering Assistant Name Role Phone Chelle Vasquez DO Primary Care Provider [phone] Reason for Visit * Reason Onset Date Comments Advice 10/20/202410/20 Information 10/20/202410/20 Encounter Details Date Type Department Care Team (Late st Contact Info) Description 10/20/2024 Telephone Family Practice [address], [place] [address] [place] [address] Chelle Vasquez 293 [place] [address] Advice (10/20); Information (10/20) Allergies Active Allergy Reactions Criticality Noted Date Comments Allopurinol Rash 04/17/2020 Pollen 04/22/2012 Seasonal allergies Molds & Smuts 07/01/2022 documented as of this encounter (statuses as of 11/26/2024) Medications Fexofenadine HCl 180 MG Oral Tablet [...] Respimat 2.5 MCG/ACT Inhalation Aerosol Solution (Tiotropium [place] Monohydrate) Inhale 2 Puffs by mouth in [...] as of this encounter (statuses as of 11/26/2024) Active Problems Problem Noted Date Diagnosed Date [...] prox RCA 80% stenosis with placement of 3.43p47yt Xience Skypoint WEST, post-dilated with 3.5mm NC Balloon reducing stenosis to 0% with JAMES 3 flow Essential (primary) hypertension 12/08/2023 Hyperlipidemia 12/08/[address] [place] ronary artery without angina pectoris 12/08/2023 [...] as of this encounter (statuses as of 11/26/2024) Resolved Problems Problem Noted Date Diagnosed Date [...] as of this encounter (statuses as of 11/26/2024) Immunizations Name Administration Dates Next Due COVID-19 [...] encounter Miscellaneous Notes * Telephone Encounter - Uriel Warren DO - 10/21/2024 4:46 PM EST Schedule earlier appointment with myself or first available AP. * Telephone Encounter - Rea Benitez LPN - 10/20/2024 2:14 PM EST Call placed to patient and relayed information from Dr. Vasquez. Pt acknowledged understanding. Pt is agreeable to sleep study and appreciative message was also forwarded to Dr. Warren. Offered earlier OV with Dr. Vasquez, pt declined, stated he did not feel it was necessary at this time if he would be having sleep study. Advised pt to call if he does feel he needs an earlier appt.Pt acknowledged. 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 Dr. Cleaning, any recommendations for this pt? * Telephone Encounter - Rea Benitez LPN - 10/20/2024 1:33 PM EST Call placed to patient for more information. Pt stopped by front clerk of office today. Pt states he was at chiropractor office today and was discussing his increased fatigue, shortness of breath with exertion, lack of energy. States chiropractor advised him to go to PCP office. Denies chest pain, palpitations. Pt reports he has been struggling with the symptoms for awhile. States sx are worse than at OV on 09/27/24. States he is concerned and next OV and cardiology visit is in December. * Telephone Encounter - Heather Fitch LPN - 10/20/2024 1:05 PM EST Not our patient. * Telephone Encounter - Carmen Painter, JIM - 10/20/2024 12:32 PM EST Please see call details. documented in this encounter Plan of Treatment Upcoming Encounters Date Type Department Care Team (Latest Contact Info) Description 12/14/2024 8:40 AM EST Office Visit Family Practice [address] [place] [address], [place] 293 [facility], [place] [address] Chelle Vasquez DO 293 [facility], [place] [address] 01/03/2025 11:00 AM EDT Office Visit Cardiology, [facility] 132 [facility] [place] [address] Uriel Warren, 132 [facility] [place] [address] 01/06/2025 8:30 PM EDT PulmDiagnostic Sleep Lab, [facility] 400 [place] [address] [facility], Sleep Med Night Sleep 400 [place] [address] 02/11/2025 1:30 PM EDT Office Visit Dermatology [facility] 200 [facility] [place] [address] Juanito Browning MD 16 [place] [address] 02/17/2025 11:30 AM EDT Office Visit Cardiology, [facility] 132 [facility] [place] [address] Uriel Warren, 132 [facility] [place] [address] 02/17/2025 2:30 PM EDT Office Visit Hematology/Oncolog y [facility] 200 [facility] [place] [phone] Leonarda Trevino, [employer] [address] [place] [address] 03/23/2025 8:30 AM EDT Office Visit Pulmonary Medicine, [facility] [address] [place] [address] Marino Rodriguez MD [address] [facility] [place] [address] 05/04/2025 9:30 AM EDT Office Visit Pulmonary Medicine, [facility] [address] [place] [address] Marino Rodriguez MD [address] [facility] [place] [address] 05/06/2025 8:00 AM EDT Hospital Encounter ENDO [facility], Endoscopy Room [facility] [place] [phone] Dallas Askew MD [address] [place] [address] 05/06/2025 8:00 AM EDT - 05/06/2025 8:30 AM EDT Surgery ENDO [facility], Endoscopy Room [facility] [place] [phone] Dallas Askew MD [address] [place] [address] COLONOSCOPY FLEXIBLE PROXIMAL DIAGNOSTIC Scheduled Procedures Name [...] this encounter Medical Devices Implanted Type Area Outside Property Agent Device Identifier Shelf Expiration Date Model / Serial / Lot Marker Coronary Am-Sd - [id number] Implanted:Qty: 2 on 11/10/2015 by Jorge Colón MD at OR [facility] N/A: Heart [employer] [facility]-SD / / [id number] Valve Heart Aortic Epic 25mm - [id number] - [id number] Implanted:Qty: 1 on 11/10/2015 by Jorge Colón MD at OR [facility] N/A: Heart ST LENNY : CARDIOVASCULAR 03/05/2019 [id number] 5-00 / [id number] 1 / Sut Steel 6 M654g - [id number] Implanted:Qty: 4 on 11/10/2015 by Jorge Colón MD at OR [facility] N/A: Chest JNJ : [employer] M654G / / Lens Intraoc 16.5 - [id number] - [id number] Implanted:Qty: 1 on 08/22/2020 by Pola Lozano MD at OR [facility] Right: Eye BAUSCH [employer] LOMB 02/09/2025 [id number] 5 / [id number] 39 / [id number] Lens Intraoc 16.0 - [id number] - [id number] Implanted:Qty: 1 on 09/05/2020 by Pola Lozano MD at OR [facility] Left: Eye BAUSCH [employer] LOMB 02/09/2025 [id number] 0 / [id number] / [id number] Clip Quick 2.8mm 230cm - [id number] Implanted:Qty: 1 on 04/23/2021 by Dallas Askew MD at ENDOSCOPY [facility] Colon [employer] 12/11/2023 HX-202UR .A / / 13K Cath Thermodilution 6fr - [id number] Implanted:Qty: 1 on 04/09/2024 by Jose Cruz Hill DO at CARDIAC LABS [facility] [employer] DYLAN [id number] 10/27/2025 [id number] / / [id number] Stent Xience Skypoint 3.25x15 - [id number] Implanted:Qty: 1 on 04/09/2024 by Jose Cruz Hill DO at CARDIAC LABS [facility] [employer]STELLANOS LABS : VASCULAR DEVICES 01/04/2027 [id number] / / [id number] documented as of this encounter Advance Directives [...] Power of Attor baldev? No Care Teams Printer Floor Covering Assistant Relationship Specialty Start Date End Date Chelle Vasquez DO [address] [place] [address] PCP - General Family Medicine 03/30/24 documented as of this encounter
--- OUTSIDE RECORDS SUMMARY | 2024-12-08 08:15 | External Medical Summary | Summary of Care ---
Author Name Unknown Organization [facility] Address [address] [place] [address] Phone [phone] Care Team Providers Care Therapy Technician Name Role Phone Chelle Vasquez DO Primary Care Provider [phone] Encounter Details Date Type Department Care Team (Late st Contact Info) Description 11/25/2024 Orders Only [facility] [address] [place] [address] Chelle Vasquez DO [address] [place] [address] Allergies Active Allergy Reactions Criticality Noted Date [...] doses in 15 minutes 25 Tablet 11 5 11:24 AM EST 07/22/20 24 Active Atorvastatin Calcium 40 MG Oral Tablet (Lipitor) Take 1 Tablet by mouth in the morning. 100 Tablet 3 5 1:36 PM EST 07/22/20 24 Active Spiriva Respimat 2.5 MCG/ACT Inhalation Aerosol Solution (Tiotropium [place] Monohydrate) Inhale 2 Puffs by mouth in [...] prox RCA 80% stenosis with placement of 3.12t13hs Xience Skypoint WEST, post-dilated with 3.5mm NC Balloon reducing stenosis to 0% with JAMES 3 flow Essential (primary) hypertension 12/08/2023 Hyperlipidemia 12/08/2023 Atherosclerosis of [place] co ronary artery without angina pectoris 12/08/2023 [...] LNP-s, No Pre serve, 2-Dose Series (Moderna) 02/08/2022,09/05/2021,12/10/2020,01/21 /2021 COVID-19, MRNA-LNP, PF, 50 M CG/0.5 mL, [...] of Assessment Author No 11/08/2015 5:21 PM EST Lavonne Milton RN * Are you blind or do [...] 8:40 AM EST Office Visit Family Practice [address] [place] [address] [address] [place] [address] Chelle Vasquez DO [address] [place] [address] 01/03/2025 11:00 AM EDT Office Visit Cardiology, [facility] [address] Uriel Warren DO 132 [facility] [place] [facility] [address] 01/06/2025 8:30 PM EDT PulmDiagnostic Sleep Lab, [facility] [address] [place] [address] [facility], Sleep Med Night Sleep [address] [place] [address] 02/11/2025 1:30 PM EDT Office Visit Dermatology [facility] 200 [facility] [place] [address] Juanito Browning MD 16 [place] [address] 02/17/2025 11:30 AM EDT Office Visit Cardiology, [facility] 132 [facility] [place] [address] Uriel Warren, 132 [facility] [place] [address] 02/17/2025 2:30 PM EDT Office Visit Hematology/Oncolog y [facility] 200 [facility] [place], [place] [phone] Leonarda Trevino CRNP [address] [place] [address] [place] [address] 03/23/2025 8:30 AM EDT Office Visit Pulmonary Medicine, [facility] 132 [facility] [place] [address] Marino Rodriguez MD [address] [facility] [place] [address] 05/04/2025 9:30 AM EDT Office Visit Pulmonary Medicine, [facility] 132 [facility] [place] [address] Marino Rodriguez MD [address] [place] [address] 05/06/2025 8:00 AM EDT Hospital Encounter ENDO [facility], Endoscopy Room [facility] 132 [facility] [place] [phone] Dallas Askew MD 132 [facility] [place] [address] 05/06/2025 8:00 AM EDT - 05/06/2025 8:30 AM EDT Surgery ENDO [facility], Endoscopy Room [facility] [address] [place] [phone] Dallas Askew MD [address] [place] [address] COLONOSCOPY FLEXIBLE PROXIMAL DIAGNOSTIC Scheduled Procedures Name [...] this encounter Medical Devices Implanted Type Area Comic Writer Device Identifier Shelf Expiration Date Model / Serial / Lot Marker Coronary [facility] - [id number] Implanted:Qty: 2 on 11/10/2015 by Jorge Colón MD [place] [facility] N/A: Heart [employer] BI[employer]ICAL [facility]-SD / / [id number] Valve Heart Aortic Epic 25mm - [id number] - [id number] Implanted:Qty: 1 on 11/10/2015 by Jorge Colón MD [place] [facility] N/A: Heart ST LENNY : CARDIOVASCULAR 03/05/2019 [id number] 5-00 / [id number] 1 / Sut Steel 6 M654g - [id number] Implanted:Qty: 4 on 11/10/2015 by Jorge Colón MD at [place] [facility] N/A: Chest JNJ : [employer] M654G / / Lens Intraoc 16.5 - [id number] - [id number] Implanted:Qty: 1 on 08/22/2020 by Pola Lozano MD at OR [facility] Right: Eye BAUSCH & LOMB 02/09/2025 [id number] 5 / [id number] 39 / [id number] Lens Intraoc 16.0 - [id number] - [id number] Implanted:Qty: 1 on 09/05/2020 by Pola Lozano MD at OR [facility] Left: Eye BAUSCH & LOMB 02/09/2025 [id number] 0 / [id number] 35 / [id number] Clip Quick 2.8mm 230cm - [id number] Implanted:Qty: 1 on 04/23/2021 by Dallas Askew MD at ENDOSCOPY [facility] Colon [employer] 12/11/2023 HX-202UR .A / / 13K Cath Thermodilution 6fr - [id number] Implanted:Qty: 1 on 04/09/2024 by Jose Cruz Hill DO at CARDIAC LABS [facility] [employer] [id number] 10/27/2025 [id number] / / [id number] Stent Xience Skypoint 3.25x15 - [id number] Implanted:Qty: 1 on 04/09/2024 by Jose Cruz Hill DO at CARDIAC LABS [facility] [employer]STELL[employer]OS LABS : VASCULAR DEVICES 01/04/2027 [id number] / [id number] documented as of this encounter Procedures Procedure Name Priority Date/Time Associated Diagnosis Comments CHEMISTRY-OUTSIDE Routine 11/10/2024 documented in this encounter Results * (ABNORMAL) CHEMISTRY-OUTSIDE (11/10/2024) Not all results display below - see scan for full detail OUTSIDE LAB (SEE SCANNED REPORT) Comment:SEE SCAN: ED LABS- C BCD, PT, INR, PTT, CMP, TROPONIN, RESPIRATORY VIRUS PANEL CREATININE 1.48(A) 0.48 - 1.47 MG/DL OUTSIDE LAB (SEE SCANNED REPORT) EGFR 51 >=60 ML/MIN/1.7 3M2 OUTSIDE LAB (SEE SCANNED REPORT) POTASSIUM 3.9 3.4 - 5.1 MMOL/L OUTSIDE LAB (SEE SCANNED REPORT) GLUCOSE 114(A) 70 - 110 MG/DL OUTSIDE LAB (SEE SCANNED REPORT) HOURS FASTING OUTSID E LAB (SEE SCANNED REPORT) TRIGLYCERIDES-OUT SIDE LAB OUTSIDE LAB (SEE SCANNED REPORT) CHOLESTEROL-OUTSI DE LAB OUTSIDE LAB (SEE SCANNED REPORT) HDL-OUTSIDE LAB OUTS RIRI LAB (SEE SCANNED REPORT) CHOL/HDL RATIO-OUTSIDE LAB OUTSIDE LA B (SEE SCANNED REPORT) LDL (CALCULATED)-OUTS RIRI LAB OUTSIDE LAB (SEE SCANNED REPORT) LDL (DIRECT MEASURE)-OUTSIDE LAB OUTSIDE LAB (SEE SCANNED REPORT) HEMOGLOBIN, Z8U-GTLEBLL LAB OUTSIDE LAB (SEE SCANNED REPORT) PHOSPHORUS-OUTSID E LAB OUTSIDE LAB (SEE SCANNED REPORT) PTH-OUTSIDE LAB OUTS RIRI LAB (SEE SCANNED REPORT) MICROALBUMIN RATIO-OUTSIDE LAB OUTSIDE LA B (SEE SCANNED REPORT) PROTEIN, UA-OUTSIDE LAB OUTSIDE LAB (SEE SCANNED REPORT) HGB 12.0(A) 13.7 - 17.5 GM/DL OUTSIDE LAB (SEE SCANNED REPORT) 11/10/2024 us History Per Patient LABORATORY Final Result OUTSIDE LAB (SEE SCANNED REPORT) documented in this encounter Advance Directives * [...] Power of Attor baldev? No Care Teams Therapy Technician Relationship Specialty Start Date End Date Chelle Vasquez DO [address] [place] [address] PCP - General Family Medicine 03/30/24 documented as of this encounter
--- OUTSIDE RECORDS SUMMARY | 2024-12-08 08:15 | External Medical Summary | Summary of Care ---
Author Name Unknown Organization [facility] Address [address] [facility] [place] [address] Phone [phone] Care Team Providers Care Hr Generalist Name Role Phone Chelle Vasquez DO Primary Care Provider Reason for Visit * Reason Comments Outpatient Testing Encounter Details Date Type Department Care Team (Late st Contact Info) Description 11/24/2024 3:40 PM EST Laboratory Laboratory, [facility] 132 [facility] [place] [phone] [facility] [address] Acute on chronic heart failure with preserved ejection fraction (HCC) Allergies Active Allergy Reactions Criticality Noted Date [...] 10, 2024. 90 Tablet 3 4 Active Torsemide 20 MG Oral Tablet (Demadex) Take 1 Tablet by mouth in the morning. 90 Tablet 3 4 Active Clopidogrel Bisulfate [...] Respimat 2.5 MCG/ACT Inhalation Aerosol Solution (Tiotropium [place] Monohydrate) Inhale 2 Puffs by mouth in [...] the morning. In the morning.. 4 Active documented as of this encounter (statuses [...] prox RCA 80% stenosis with placement of 3.68s54av Xience Skypoint WEST, post-dilated with 3.5mm NC Balloon reducing stenosis to 0% with JAMES 3 flow Essential (primary) hypertension 12/08/2023 Hyperlipidemia 12/08/2023 Atherosclerosis of [place] co ronary artery without angina pectoris 12/08/2023 [...] Per Prediabetes protocol Atrial fibrillation 11/20/2015 04/05/20 24 Overview (02/13/2016): ICD-10 update of inactive term [...] No 09/27/2024 Does the household have a [facility] source of income? (Household [...] 8:40 AM EST Office Visit Family Practice [address] [place] [address] [address] [place] [address] Chelle Vasquez DO [address] [place] [address] 01/03/2025 11:00 AM EDT Office Visit Cardiology, [facility] 132 [facility] [place] [address] Uriel Warren DO 132 [facility] [place] [address] 01/06/2025 8:30 PM EDT PulmDiagnostic Sleep Lab, [facility] [address] [place] [address] [facility], Sleep Med Night Sleep 400 [facility] [place] [id number] 02/11/2025 1:30 PM EDT Office Visit Dermatology [facility] 200 [facility] [place], [place] [address] Juanito Browning MD 16 [place] [address] 02/17/2025 11:30 AM EDT Office Visit Cardiology, [facility] 132 [facility] [place] [address] Uriel Warren O, DO 132 [facility] [place] [address] 02/17/2025 2:30 PM EDT Office Visit Hematology/Oncolog y [facility] [address] [place], [place] [phone] Leonarda Trevino CRNP [address] [place], [place] [address] [address] 03/23/2025 8:30 AM EDT Office Visit Pulmonary Medicine, [facility] 132 [facility] [place] [address] Marino Rodriguez MD [address] [place] [address] 05/04/2025 9:30 AM EDT Office Visit Pulmonary Medicine, [facility] 132 [facility] [place] [address] Marino Rodriguez MD [address] [facility] [place] [address] 05/06/2025 8:00 AM EDT Hospital Encounter [facility]O [facility], [facility] [place] [phone] Dallas Askew MD 132 [facility] [place] [address] 05/06/2025 8:00 AM EDT - 05/06/2025 8:30 AM EDT Surgery ENDO [facility], Endoscopy Room [facility] [address] [place] [phone] Dallas Askew MD [address] [place] [address] COLONOSCOPY FLEXIBLE PROXIMAL DIAGNOSTIC Scheduled Procedures Name [...] Screening 09/17/2025 09/17/2024 GFR 11/24/2025 11/24/2024, 10/14, 09/14/2024, Additional history exists Albumin/Creatinine Ratio 02/23/2027 02/24/2024 [...] this encounter Medical Devices Implanted Type Area Sulfonation Equipment Operator Device Identifier Shelf Expiration Date Model / Serial / Lot Marker Coronary [facility] - [id number] Implanted:Qty: 2 on 11/10/2015 by Jorge Colón MD at OR [facility] N/A: Heart [employer] [facility] / / [id number] Valve Heart Aortic Epic 25mm - [id number] - [id number] Implanted:Qty: 1 on 11/10/2015 by Jorge Colón MD at OR [facility] N/A: Heart ST [facility] : CARDIOVASCULAR 03/05/2019 [id number] 5-00 / [id number] / Sut Steel 6 M654g - [id number] Implanted:Qty: 4 on 11/10/2015 by Jorge Colón MD at OR [facility] N/A: Chest JNJ : [employer] M654G / / Lens Intraoc 16.5 - [id number] - [id number] Implanted:Qty: 1 on 08/22/2020 by Pola Lozano MD at OR [facility] Right: Eye BAUSCH & LOMB 02/09/2025 [id number] 5 / [id number] / [id number] Lens Intraoc 16.0 - [id number] - [id number] Implanted:Qty: 1 on 09/05/2020 by Pola Lozano MD at OR [facility] Left: Eye BAUSCH & LOMB 02/09/2025 [id number] 0 / [id number] / [id number] Clip Quick 2.8mm 230cm - [id number] Implanted:Qty: 1 on 04/23/2021 by Dallas Askew MD at ENDOSCOPY [facility] Colon [employer]ptive [employer] 12/11/2023 HX-[id number] .A / / 13K Cath Thermodilution 6fr - [id number] Implanted:Qty: 1 on 04/09/2024 by Jose Cruz Hill DO at CARDIAC LABS [facility] [employer] DYLAN [id number] 10/27/2025 [id number] / / [id number] Stent Xience Skypoint 3.25x15 - [id number] Implanted:Qty: 1 on 04/09/2024 by Jose Cruz Hill DO at CARDIAC LABS [facility] [employer] LABS : VASCULAR DEVICES 01/04/2027 [id number] / / [id number] documented as of this encounter Procedures Procedure Name Priority Date/Time Associated Diagnosis Comments BASIC METABOLIC PANEL STAT 11/24/2024 3:16 PM EST Acute on chronic heart failure with preserved ejection fraction (HCC) documented in this encounter Results * (ABNORMAL) BASIC METABOLIC [...] LABORATORY [place] [address] [place] [address] documented in this encounter Visit Diagnoses Diagnosis Acute on chronic heart failure with preserved ejection fraction (HCC) History of colon polyps Personal history of [...] Power of Attor baldev? No Care Teams Hr Generalist Relationship Specialty Start Date End Date Chelle Vasquez DO [address] [place] [facility] [address] PCP - General Family Medicine 03/30/24 documented as of this encounter
--- OUTSIDE RECORDS SUMMARY | 2024-12-08 08:15 | External Medical Summary ---
Author Name Unknown Address Unknown Organization K0G:[facility] [address] [place] [address] Laboratory Report Ordering Provider Test Date Status CHRISTIAN SOLIMAN 11/24/2024 15:16:37 Final Observation Date Value Abnormality Reference (Units ) Status BUN 11/24/2024 15:16:37 33 Above high normal 6-20 (mg/dL) Final Creatinine 11/24/2024 15:16:37 1.5 Above high normal 0.6-1.2 (mg/dL) Final Glomerular filtration rate/1.73 sq M.predicted [Volume Rate/Area] in Serum, Plasma or Blood by Creatinine-based formula (CKD-EPI) 11/24/2024 15:16:37 51 Below low normal >=60 (mL/min) Final eGFR is calculated based on the CKD-EPI 2020 equation. Sodium 11/24/2024 15:16:37 137 135-146 (m mol/L) Final Potassium 11/24/2024 15:16:37 4.6 3.5-5.1 (m mol/L) Final Cl 11/24/2024 15:16:37 98 98-107 (mm ol/L) Final CO2 11/24/2024 15:16:37 29 22-32 (mmo l/L) Final Anion gap 11/24/2024 15:16:37 10 7-15 (mmol /L) Final Glucose 11/24/2024 15:16:37 120 70-120 (mg /dL) Final Calcium 11/24/2024 15:16:37 9.6 8.4-10.2 ( mg/dL) Final Performing Location [facility] [address] [place] [address]
--- OUTSIDE RECORDS SUMMARY | 2024-12-08 08:15 | External Medical Summary | Summary of Care ---
Author Name Unknown Organization [facility] Address [address] [place] [address] Phone [phone] Care Team Providers Care Guide Rail Cleaner Name Role Phone PedroMonajackeline Lazo DO Primary Care Provider Encounter Details Date Type Department Care Team (Latest Contact Info) Description 11/12/2024 Medication Management [facility] [address] [place], [place] [phone] Rosario Latham, [facility] 200 [place] [address] Referred for management of medication therapy* Allergies Active Allergy Reactions Criticality Noted Date Comments Allopurinol Rash 04/17/2020 Pollen 04/22/2012 Seasonal allergies Molds & Smuts 07/01/2022 documented as of this encounter (statuses as of 11/20/2024) Medications Fexofenadine HCl 180 MG Oral Tablet [...] OralDaily(Non-Specified), Only taking at bedtime, Reported on 11/19/2024 Aspirin 81 MG Oral Tablet Chewable Take [...] Respimat 2.5 MCG/ACT Inhalation Aerosol Solution (Tiotropium [place] Monohydrate) Inhale 2 Puffs by mouth in [...] as of this encounter (statuses as of 11/20/2024) Active Problems Problem Noted Date Diagnosed Date [...] prox RCA 80% stenosis with placement of 3.31k32qe Xience Skypoint WEST, post-dilated with 3.5mm NC Balloon reducing stenosis to 0% with JAMES 3 flow Essential (primary) hypertension 12/08/2023 Hyperlipidemia 12/08/2023 Atherosclerosis of [place] co ronary artery without angina pectoris 12/08/2023 [...] as of this encounter (statuses as of 11/20/2024) Resolved Problems Problem Noted Date Diagnosed Date [...] as of this encounter (statuses as of 11/20/2024) Immunizations Name Administration Dates Next Due COVID-19 [...] documented in this encounter Progress Notes * Rosario Latham, [facility] - 11/19/2024 5:22 PM EST Michael Hughes is a 69 year old male. Objective: Review of patient's allergies indicates: Allergen Reactions Allopurinol Rash Environmental [Pollen] Seasonal allergies Molds & Smuts Current Outpatient Medications - WARNING: List may be incomplete due to filtering Medication Sig Dispense Refill Lisinopril 5 MG Oral Tablet (Prinivil) Take 1 Tablet by mouth in the morning. In the morning.. Albuterol Sulfate (2.5 MG/3ML) 0.083% Inhalation Nebulization Solution (Proventil) Inhale 1 Vial via nebulizer every 4 hours as needed for Wheezing. 180 mL 5 Budesonide 1 MG/2ML Inhalation Suspension (Pulmicort) Inhale 1 mg via nebulizer in the morning and 1 mg in the evening. 180 mL 3 Ventolin HFA 108 (90 Base) MCG/ACT Inhalation Aerosol Solution Inhale 2 Puffs by mouth as needed for Cough or Wheezing. 8.5 g 3 Probenecid 500 MG Oral Tablet (Benemid) Take 1 Tablet by mouth in the morning and 1 Tablet before bedtime. 60 Tablet 5 Spiriva Respimat 2.5 MCG/ACT Inhalation Aerosol Solution (Tiotropium [place] Monohydrate) Inhale 2 Puffs by mouth in the morning. 4 g 10 Atorvastatin Calcium 40 MG Oral Tablet (Lipitor) Take 1 Tablet by mouth in the morning. 100 Tablet 3 Ezetimibe 10 MG Oral Tablet (Zetia) Take 1 Tablet by mouth in the morning. 100 Tablet 3 Omeprazole 20 MG Oral Capsule Delayed Release (PriLOSEC) Take 1 Capsule by mouth at bedtime. 90 Capsule 3 Aspirin 81 MG Oral Tablet Chewable Take 1 Tablet by mouth in the morning. Do not start before April 10, 2024. 90 Tablet 3 Clopidogrel Bisulfate 75 MG Oral Tablet (pLAVix) Take 1 Tablet by mouth in the morning. Do not start before April 10, 2024. 90 Tablet 3 Torsemide 20 MG Oral Tablet (Demadex) Take 1 Tablet by mouth in the morning. 90 Tablet 3 Carvedilol 3.125 MG Oral Tablet (Coreg) Take 1 Tablet by mouth in the morning and 1 Tablet before bedtime. (Patient taking differently: Take 1 Tablet by mouth daily. Only taking at bedtime) 68 Prezsx44 Potassium Chloride ER 10 MEQ Oral Tablet Extended Release Take 1 Tablet by mouth in the morning. traMADol HCl 50 MG Oral Tablet (Ultram) Take 1 Tablet by mouth every 6 hours as needed. Vitamin D 50 MCG (2000 UT) Oral Capsule Take 2,000 Units by mouth at bedtime. Fexofenadine HCl 180 MG Oral Tablet Take 1 Tablet by mouth in the morning. Compressor Nebulizer Inhale via nebulizer. Use as directed. 1 Each 0 Humidifier Humidifier for oxygen concentrator 2 Each 0 Nitroglycerin 0.4 MG Sublingual Tablet Sublingual (Nitrostat) Place 1 Tablet under the tongue every5 minutes as needed for Pain, Chest. up to 3 doses in 15 minutes 25 Tablet 11 Amoxicillin 500 MG Oral Capsule (Amoxil) Take 4 Capsules by mouth daily as needed (dental appointments). Immunization History Administered Date(s) Administered COVID-19 mRNA, LNP-s, No Preserve, 2-Dose Series (Moderna) 11/02/2020, 12/10/2020, 09/05/2021, 02/08/2022 COVID-19, MRNA-LNP, PF, 50 MCG/0.5 mL, 12 YRS AND ABOVE, IM (MODERNA-Spikevax) 07/10/2023, 08/21/2024 Covid-19, Mrna, Lnp-s, Pf, Bivalent, 50 Mcg, IM, 12 yrs and above (Moderna) 08/23/2022 Hepatitis B, 20+ yrs 12/25/2020, 02/26/2021, 06/29/2021 Pneumococcal Conjugate Vacc, 13 Valent (Prevnar) 07/13/2019 Pneumococcal Polysaccharide PPV23 (Pneumovax) 08/03/2020 RSV Vac., Recomb, Adjuvant, PF,0.5 Ml (Arexvy) 08/07/2023 Seasonal Influenza Vac., MDV, IM, 0.5 mL (Fluzone) 10/23/2013 Seasonal Influenza Virus Vaccine, Unspecified Formulation 10/23/2013, 08/23/2015, 09/25/2016, 10/12/2017, 10/20/2018, 08/02/2021, 07/26/2022 Seasonal Influenza, High Dose, Trivalent, PF, IM (Fluzone HD) 06/17/2024 Seasonal Influenza, Quadrivalent Hd, 65+ Yrs 07/28/2020, 07/25/2023 TDAP (age 10 and older)(Boostrix) 09/23/2012, 10/02/2023 Zoster Vaccine Recombinant (Shingrix) 10/27/2019, 03/18/2020 TMR Interventions TMR Cost Savings - Multiple Inhalers: ADVAIR HFA AER 115/21;SPIRIVA SPR 2.5MCG Incomplete Encounter MTPs No medication therapy recommendations to display Complete Encounter MTPs Moderate persistent asthma without complication 1 Current Medication: Budesonide 1 MG/2ML Inhalation Suspension (Pulmicort) Current Medication Sig: Inhale 1 mg via nebulizer in the morning and 1 mg in the evening. Rationale: More cost-effective medication available - Cost - Adherence Status: No Longer Relevant Identified Date: 11/12/2024 Completed Date: 11/12/2024 Note: Patient's inhalers were changed recently by pulmonology. He is now only on spiriva inhaler plus budesonide and albuterol nebs. Assessment & Plan Indication, effectiveness, safety and convenience of his medications were reviewed today. The patient's medical conditions were assessed, evaluated, and deemed meeting goals of drug therapy, with thefollowing exceptions. Additional Notes: Takeaway Information Who was the recipient of the CMR service: beneficiary Language Template for the Patient Takeaway: Malagasy I attest that I have reviewed and updated the patient's conditions, allergies, and medications to the best of my ability. Patient provided medication list gathered by: myself Rosario Crespo [facility] 11/19/2024, 5:22 PM documented in this encounter Miscellaneous Notes * MTM Personal Medication List - Rosario Latham [facility] - 11/19/2024 5:19 PM EST Medication How I take it Why I use it Prescriber Albuterol Sulfate (2.5 MG/3ML) 0.083% Inhalation Nebulization Solution (Proventil) Inhale 1 Vial via nebulizer every 4 hours as needed for Wheezing. Asthma Chelle Vasquez DO Aspirin 81 MG Oral Tablet Chewable Take 1 Tablet by mouth in the morning. Heart protection GILBERTO De Leon Jr. Atorvastatin Calcium 40 MG Oral Tablet (Lipitor) Take 1 Tablet by mouth in the evening. Cholesteroland heart protection Uriel Warren DO Budesonide 1 MG/2ML Inhalation Suspension (Pulmicort) Inhale 1 mg via nebulizer in the morning and 1 mg in the evening. Asthma Marino Rodriguez MD Carvedilol 3.125 MG Oral Tablet (Coreg) Take 1 Tablet by mouth at bedtime. Blood pressure and heartdisease Uriel Warren DO Clopidogrel Bisulfate 75 MG Oral Tablet (pLAVix) Take 1 Tablet by mouth in the morning. Blood thinner GILBERTO De Leon Jr. Ezetimibe 10 MG Oral Tablet (Zetia) Take 1 Tablet by mouth in the morning. Cholesterol Chelle Vasquez DO Fexofenadine HCl 180 MG Oral Tablet Take 1 Tablet by mouth in the morning. Allergies Self Lisinopril 5 MG Oral Tablet (Prinivil) Take 1 Tablet by mouth in the morning Blood pressure and kidney protection Uriel Warren DO Omeprazole 20 MG Oral Capsule Delayed Release (PriLOSEC) Take 1 Capsule by mouth at bedtime. Heartburn Chelle Vasquez, DO Potassium Chloride ER 10 MEQ Oral Tablet Extended Release Take 1 Tablet by mouth in the morning. Low potassium GILBERTO De Leon Jr. Probenecid 500 MG Oral Tablet (Benemid) Take 1 Tablet by mouth in the morning and 1 Tablet before bedtime. Gout Chelle Vasquez, DO Spiriva Respimat 2.5 MCG/ACT Inhalation Aerosol Solution (Tiotropium [place] Monohydrate) Inhale 2 Puffs by mouth in the morning. Asthma Marino Timothy Rodriguez MD Torsemide 20 MG Oral Tablet (Demadex) Take 1 Tablet by mouth in the morning. Water pill GILBERTO De Leon Jr. Ventolin HFA 108 (90 Base) MCG/ACT Inhalation Aerosol Solution Inhale 2 Puffs by mouth as needed for Cough or Wheezing. Asthma Chelle Vasquez DO Vitamin D 50 MCG (2000 UT) Oral Capsule Take 2,000 Units by mouth at bedtime. General health Self * MTM To-Do-List - Rosario Latham RPh - 11/19/2024 5:19 PM EST Images from the original note were not included. What we talked about: What I should do: The importance of taking your medication as prescribed Your medicine works best when taken as prescribed. It can be hard to remember to take daily medications. Consider making it a part of your daily routine. Pair taking your medication with something you do every day, like brushing your teeth or eating a meal. Consider setting daily alarms to help remind yourself when it is time to take your medicine. Using a pill box can also help you organize your medicines. Pill boxes allow you to fill each day slot with your daily medicine and help you track when your next dose is due. documented in this encounter Plan of Treatment Upcoming Encounters Date Type Department Care Team (Latest Contact Info) Description 11/24/2024 2:30 PM EST Office Visit Cardiology, [facility] [address] Tracey Cole CRNP [address] [place] [address] 12/14/2024 8:40 AM EST Office Visit Family Practice [address] [place] 293 [facility] [place] [address] Chelle Vasquez, DO 293 [facility] [place] [address] 01/03/2025 11:00 AM EDT Office Visit Cardiology, [facility] [address] Uriel Warren, DO [facility] [address] 01/06/2025 8:30 PM EDT PulmDiagnostic Sleep Lab, [facility] [address] [place] [address] [facility], Sleep Med Night Sleep [address] [place] [address] 02/11/2025 1:30 PM EDT Office Visit Dermatology [facility] 200 [place] [address] Juanito Browning MD 16 [place] [address] 02/17/2025 11:30 AM EDT Office Visit Cardiology, [facility] 132 [facility] [place] [address] Uriel Warren, DO 132 [facility] [place] [address] 02/17/2025 2:30 PM EDT Office Visit Hematology/[facility]colog [facility] [address] [place], [place] [address] Leonarda Trevino CRNP [address] [place] [address] 03/23/2025 8:30 AM EDT Office Visit Pulmonary Medicine, [facility] [address] [place] [address] Marino Rodriguez MD [address] [facility] [place] [address] 05/04/2025 9:30 AM EDT Office Visit Pulmonary Medicine, [facility] [address] [place] [address] Marino Rodriguez MD [address] [facility] [address] 05/06/2025 8:00 AM EDT Hospital Encounter ENDO [facility], Endoscopy Room [facility] [address] [place] [phone] Dallas Askew MD [address] [place] [address] 05/06/2025 8:00 AM EDT - 05/06/2025 8:30 AM EDT Surgery ENDO [facility], Endoscopy Room [facility] [address] [place] [phone] Dallas Askew MD [address] [place] [address] COLONOSCOPY FLEXIBLE PROXIMAL DIAGNOSTIC Scheduled Procedures Name [...] 03/04/2025 03/04/2024 Depression Screening 09/17/2025 09/17/2024 GFR 11/03/2025 11/03/2024, 12/2023, 06/30/2024, Additional history exists Albumin/Creatinine Ratio 02/23/2027 02/24/2024 [...] this encounter Medical Devices Implanted Type Area Mill Set Up Device Identifier Shelf Expiration Date Model / Serial / Lot Marker Coronary Am-Sd - [id number] Implanted:Qty: 2 on 11/10/2015 by Jorge Colón MD [place] [facility] N/A: Heart [employer] [facility]-SD / / [id number] Valve Heart Aortic Epic 25mm - [id number] - [id number] Implanted:Qty: 1 on 11/10/2015 by Jorge Colón MD [place] [facility] N/A: Heart ST LENNY : CARDIOVASCULAR 03/05/2019 [id number] 5-00 / [id number] / Sut Steel 6 M654g - [id number] Implanted:Qty: 4 on 11/10/2015 by Jorge Colón MD at [place] [facility] N/A: Chest JNJ : [employer] M654G / / Lens Intraoc 16.5 - [id number] - [id number] Implanted:Qty: 1 on 08/22/2020 by Pola Lozano MD at OR [facility] Right: Eye [employer]CH [employer] LOMB 02/09/2025 [id number] 5 / [id number] / [id number] Lens Intraoc 16.0 - [id number] - [id number] Implanted:Qty: 1 on 09/05/2020 by Pola Lozano MD at OR [facility] Left: Eye BAUSCH [employer] LOMB 02/09/2025 [id number] 0 / [id number] / [id number] Clip Quick 2.8mm 230cm - [id number] Implanted:Qty: 1 on 04/23/2021 by Dallas Askew MD at ENDOSCOPY [facility] [employer] 12/11/2023 HX-202UR .A / / 13K Cath Thermodilution 6fr - [id number] Implanted:Qty: 1 on 04/09/2024 by Jose Cruz Hill DO at CARDIAC [facility] [employer]AN [id number] 10/27/2025 [id number] / / [id number] Stent Xience Skypoint 3.25x15 - [id number] Implanted:Qty: 1 on 04/09/2024 by Jose Cruz Hill DO at CARDIAC [facility] [employer] [facility] : VASCULAR DEVICES 01/04/2027 [id number] / / [id number] documented as of this encounter Visit Diagnoses Diagnosis Referred for management of medication therapy- Primary Encounter for long-term (current) use of other medications History of colon polyps Personal history of [...] Power of Attor baldev? No Care Teams Guide Rail Cleaner Relationship Specialty Start Date End Date Chelle Vasquez DO [address] [place] [address] PCP - General Family Medicine 03/30/24 documented as of this encounter
--- OUTSIDE RECORDS SUMMARY | 2024-12-08 08:15 | External Medical Summary | Summary of Care ---
Author Name Unknown Organization [facility] Address [address] [facility] [address] Phone [phone] Care Team Providers Care Signs Cleaner Name Role Phone Chelle Vasquez DO Primary Care Provider Reason for Visit * Reason Comments Emergency Department Follow-Up Pt her fo r ER follow up - bruise on right side, some neck pain from fall. Consult with sleep medicine this morning. Is following with sleep study for January 06 Encounter Details Date Type Department Care Team (Late st Contact Info) Description 11/12/2024 1:40 PM EST Office Visit Family Practice [address] [place] [address] [place] [phone] Chelle Vasquez, [address] [place] [address] Acute on chronic heart failure with preserved ejection fraction (HCC)*; Pulmonary hypertension (HCC) Allergies Active Allergy Reactions Criticality Noted Date Comments Allopurinol Rash 04/17/2020 Pollen 04/22/2012 Seasonal allergies Molds & Smuts 07/01/2022 documented as of this encounter (statuses as of 11/17/2024) Medications Fexofenadine HCl 180 MG Oral Tablet [...] OralDaily(Non-Specified), Only taking at bedtime, Reported on 11/12/2024 Aspirin 81 MG Oral Tablet Chewable Take 1 Tablet by mouth in the morning. Do not start before April 10, 2024. 90 Tablet 3 04/10/20 24 Active Torsemide 20 MG Oral Tablet (Demadex) Take 1 Tablet by mouth in the morning. 90 Tablet 3 04/09/20 24 Active Clopidogrel Bisulfate 75 MG Oral [...] 3 doses in 15 minutes 25 Tablet 11:24 AM EST 07/22/20 24 Active Atorvastatin Calcium 40 MG Oral Tablet (Lipitor) Take 1 Tablet by mouth in the morning. 100 Tablet 5 1:36 PM EST 07/22/20 24 Active Spiriva Respimat 2.5 MCG/ACT Inhalation Aerosol Solution (Tiotropium [place] Monohydrate) Inhale 2 Puffs by mouth in the morning. 4 g 11:24 AM EST 09/14/20 24 Active HumidifierIndica tions:Hodgkin lymphoma, unspecified Hodgkin lymphoma type, unspecified body region (HCC) Humidifier for oxygen concentrator 2 Each 10/08/20 Active Compressor NebulizerIndicat ions:Hodgkin lymphoma, unspecified Hodgkin [...] 3 5 1:33 PM EST 11/03/19 25 025 Active Lisinopril 10 MG Oral Tablet (Prinivil) Take 0.5 Tablets by mouth in the morning. 90 Tablet 3 06/29/20 24 025 Discontin ued(Medic ation List Clean Up) Fluticasone-Salm eterol 115-21 MCG/ACT Inhalation Aerosol (Advair HFA) Inhale 2 Puffs by mouth in the morning and 2 Puffs before bedtime. 12 g 12 4 5:38 PM EST 07/26/20 24 025 Discontin ued(Medic ation List Clean Up) Fluticasone-Salm eterol 115-21 MCG/ACT Inhalation Aerosol (Advair HFA) Inhale 2 Puffs by mouth in the morning and 2 Puffs before bedtime. 12 g 12 07/26/20 24 025 Discontin ued(Medic ation List Clean Up) Clotrimazole 10 MG Mouth/Throat Coral (Mycelex Coral)Indicatio ns:Thrush Take 1 Lozenge by mouth 5 times a day for 14 days. Allow tablet to slowly dissolve in your mouth 70 Coral 4 4:44 PM EDT 08/06/20 24 025 Discontin ued(Medic ation List Clean Up) predniSONE 10 MG Oral Tablet (Deltasone) Take 2 Tablets by mouth daily in the morning with meals for 5 days; then 1 tablet daily for 5 days; then one-half tablet daily for 5 days, then STOP. 18 Tablet 1 5 11:24 AM EST 11/10/19 25 025 Discontin ued(Medic ation List Clean Up) documented as of this encounter (statuses as of 11/17/2024) Active Problems Problem Noted Date Diagnosed Date [...] prox RCA 80% stenosis with placement of 3.90r58vk Xience Skypoint WEST, post-dilated with 3.5mm NC Balloon reducing stenosis to 0% with JAMES 3 flow Essential (primary) hypertension 12/08/2023 Hyperlipidemia 12/08/2023 Atherosclerosis of [place] co ronary artery without angina pectoris 12/08/2023 History of therapeutic radiation 09/20/2022 MGUS (monoclonal gammopathy of unknown significa nce) 05/17/2020 History of nonmelanoma skin cancer 11/25/2017 Overview (11/25/2017): Hx of BCC mid back - 2017 Hx of BCC left neck - 2017 Hx of SCC in situ on right [...] as of this encounter (statuses as of 11/17/2024) Resolved Problems Problem Noted Date Diagnosed Date [...] as of this encounter (statuses as of 11/17/2024) Immunizations Name Administration Dates Next Due COVID-19 [...] Sign Reading Time Taken Comments Blood Pressure 132/80 11/12/2024 2:07 PM EST Pulse 96 11/12/2024 2:07 PM EST Temperature 36.2 C (97.1 F) 11/12/2024 2:07 PM ES T Respiratory Rate 14 11/12/2024 2:07 PM EST Oxygen Saturation 94% 11/12/2024 2:07 PM EST Inhaled Oxygen Concentration - - Weight 104.9 kg (231 lb 4.8 oz) 11/12/2024 2:07 PM EST Height 170.2 cm (5' 7") 11/12/2024 2:07 PM EST Body Mass Index 36.23 11/12/2024 2:07 PM EST documented in this [...] documented in this encounter Progress Notes * Chelle Vasquez, - 11/12/2024 1:37 PM EST Images from the original note were not included. Subjective Michael Hughes is a 69 year old male that presents for Emergency Department Follow-Up (Pt her for ER follow up - bruise on right side, some neck pain from fall. Consult with sleep medicine this morning. Is following with sleep study for January 06 ) History of Present Illness Michael Hughes is a 69 year old male with pulmonary hypertension and diastolic dysfunction who presents with worsening respiratory symptoms. He is accompanied by Rea, his caregiver. He presents with worsening respiratory symptoms, including persistent wheezing and episodes of bronchospasm. His breathing was particularly poor after a recent visit to the emergency room, where he was evaluated for coughing and bronchospasm. His symptoms improved slightly after receiving Lasix, but he continues to experience significant respiratory distress. His breathing was better on Friday, allowing him to engage in activities such as attending a meeting and shopping, but has since worsened. He has a history of pulmonary hypertension and diastolic dysfunction, identified through an echocardiogram showing right-sided heart failure characteristics. He also has a known pleural effusion thathas been difficult to drain, contributing to his respiratory issues. His heart pumps well with a normal ejection fraction of 60%, but he has diastolic dysfunction, indicating issues with heart relaxat ion and filling. He experiences fluid retention, particularly in his legs, and has been on torsemide, although he recalls Lasix being more effective in the past. He monitors his weight daily, noting fluctuations around 220 pounds, and has a family history of kidney issues, which he is concerned about in relation to diuretic use. Environmental factors may exacerbate his symptoms, including exposure to strong adhesives and drywall dust due to home renovations, as well as wood fires and a Esmer tree. He has a history of allergies, confirmed by a panel, and experiences frequent epistaxis, which he attributes to irritation from oxygen use. He recently experienced a fall, resulting in a head injury with a bruise and a scrape, but he did not require sutures. He was evaluated at a [facility], where he received a thorough workup, including imaging, but no significant internal injuries were found. Review of Systems Constitutional: Positive for fatigue. Negative for chills, fever and unexpected weight change. Respiratory: Positive for cough, chest tightness, shortness of breath and wheezing. Cardiovascular: Positive for leg swelling. Negative for chest pain and palpitations. Gastrointestinal: Negative for abdominal pain, constipation, diarrhea, nausea and vomiting. Musculoskeletal: Negative for arthralgias, gait problem and joint swelling. Skin: Positive for wound (scalp). Negative for color change, pallor and rash. Objective Vitals: 11/12/24 1407 Temp: 97.1 F (36.2 C) Pulse: 96 Resp: 14 SpO2: 94% BP: 132/80 BMI: 36.22 BP Readings from Last 3 Encounters: 11/12/24 132/80 11/12/24 138/80 11/03/24 122/80 Wt Readings from Last 3 Encounters: 11/12/24 231 lb 4.8 oz (104.9 kg) 11/12/24 227 lb (103 kg) 11/03/24 227 lb (103 kg) Physical Exam Physical Exam Constitutional: General: He is not in acute distress. Appearance: He is well-developed. Cardiovascular: Rate and Rhythm: Normal rate and regular rhythm. Heart sounds: Normal heart sounds. No murmur heard. No friction rub. No gallop. Pulmonary: Effort: Pulmonary effort is normal. No respiratory distress. Breath sounds: Wheezing and rhonchi present. No rales. Abdominal: General: Bowel sounds are normal. There is no distension. Palpations: Abdomen is soft. Tenderness: There is no abdominal tenderness. There is no guarding. Musculoskeletal: General: No tenderness or deformity. Normal range of motion. Right lower leg: Edema (+1-2) present. Left lower leg: Edema (+2-3) present. Skin: General: Skin is warm and dry. Coloration: Skin is not pale. Findings: No erythema or rash. Neurological: Mental Status: He is alert and oriented to person, place, and time. I have reviewed the following results: Results RADIOLOGY Chest x-ray: Pleural effusion, atelectasis (11/11/2024) Neck CT: Arthritis, chronic thickening (11/11/2024) DIAGNOSTIC Echocardiography: Diastolic dysfunction, pulmonary hypertension, ejection fraction 60% (11/11/2024) Assessment and Plan Assessment & Plan Chronic Respiratory Disease with Bronchospasm Recent episode of coughing and wheezing. Noted pleural effusion on imaging that cannot be drained. Wheezing on examination. -Start Prednisone to control bronchospasm. -Consider air purifier in bedroom to reduce allergen exposure. -Consult with specialists regarding management of pleural effusion and its potential contribution to pulmonary hypertension. Diastolic Heart Failure and Pulmonary Hypertension Echocardiogram shows diastolic dysfunction and pulmonary hypertension. -Continue current management and monitor closely. -Consider adjusting diuretic therapy based on fluid status and kidney function. Sleep Apnea Discussed potential contribution to pulmonary hypertension. -Plan for sleep study. Peripheral Edema Noted fluid retention in legs. -Monitor weight closely for signs of fluid retention. -Consider use of elastic socks to help manage edema. -Adjust diuretic therapy as needed based on fluid status and kidney function. Head Trauma Recent fall with head injury. No significant findings on examination. -Monitor for any changes or worsening symptoms. Maxillary Sinusitis Chronic thickening noted on imaging. Patient reports frequent nosebleeds. -Monitor symptoms and manage conservatively. Cervical Spondylosis Noted on imaging. No symptoms reported. -No specific intervention needed at this time. General Health Maintenance -Continue to monitor weight and fluid status. -Consider use of a diary to track symptoms and weight. -Encourage low salt diet. -Plan to check kidney function periodically due to family history of kidney disease and patient's diuretic use. (I50.33) Acute on chronic heart failure with preserved ejection fraction (HCC) (primary encounter diagnosis) (I27.20) Pulmonary hypertension (HCC) Plan: Will message pulmonary and cardiology for their opinion regarding this patient. Wrap-Up Follow-up: as scheduled Time: I spent a total of 40-54 minutes (exact time 43 mins) on the date of service in preparation, delivery, and documentation of the care provided to Michael Hughes excluding any time spent in the performance of separately billed services. Text in this note was generated using an [employer] documentation service. I discussed the use of a device to record and summarize our discussion today. All persons present during the encounter consented to its use. documented in this encounter Nursing Notes * Honey Rossi CCMA - 11/12/2024 2:07 PM EST Chief Complaint Patient presents with Emergency Department Follow-Up Pt her for ER follow up - bruise on right side, some neck pain from fall. Consult with sleep medicine this morning. Is following with sleep study for January 06 documented in this encounter Plan of Treatment Upcoming Encounters Date Type Department Care Team (Latest Contact Info) Description 11/24/2024 2:30 PM EST Office Visit Cardiology, [facility] 132 [facility] [place] [address] Tracey Cole CRNP [address] [place] [address] [place] [id number] 12/14/2024 8:40 AM EST Office Visit Family Practice [address] [place] [address] 293 [place] [phone] Chelle Vasquez DO 293 [place] [address] 01/03/2025 11:00 AM EDT Office Visit Cardiology, [facility] 132 [facility] [place] [address] Uriel Warren, DO 132 [facility] [place] [address] 01/06/2025 8:30 PM EDT PulmDiagnostic Sleep Lab, [facility] [address] [place], [place] [phone] [facility], Sleep Med Night Sleep [address] [place], [place] [phone] 02/11/2025 1:30 PM EDT Office Visit Dermatology [facility] 200 [facility] [place] [address] Juanito Browning MD [address] [place] [address] 02/17/2025 11:30 AM EDT Office Visit Cardiology, [facility] 132 [place] [address] Uriel Warren, DO 132 [facility] [place] [address] 02/17/2025 2:30 PM EDT Office Visit Hematology/Oncolog y [facility] 200 [facility] [place] [phone] Leonarda Trevino CRNP [address] [place], [place] [phone] 03/23/2025 8:30 AM EDT Office Visit Pulmonary Medicine, [facility] 132 [facility] [place] [address] Marino Rodriguez MD [address] [place] [address] 05/04/2025 9:30 AM EDT Office Visit Pulmonary Medicine, [facility] [address] [place] [address] aMrino Rodriguez MD [address] [place] [address] 05/06/2025 8:00 AM EDT Hospital Encounter ENDO OSS[facility], Endoscopy Room [facility] [address] [place] [phone] Dallas Askew MD [address] [place] [address] 05/06/2025 8:00 AM EDT - 05/06/2025 8:30 AM EDT Surgery ENDO [facility], Endoscopy Room [facility] [address] [place] [phone] Dallas Askew MD [address] [place] [address] COLONOSCOPY FLEXIBLE PROXIMAL DIAGNOSTIC Scheduled Procedures Name [...] Depression Screening 09/17/2025 09/17/2024 GFR 11/03/2025 11/03/2024, 1212/2023, 06/30/2024, Additional history exists Albumin/Creatinine Ratio 02/23/2027 [...] this encounter Medical Devices Implanted Type Area Hat Liner Device Identifier Shelf Expiration Date Model / Serial / Lot Marker Coronary [facility] - [id number] Implanted:Qty: 2 on 11/10/2015 by Jorge Colón MD [place] [facility] [place]A: Heart [employer] [facility] / / [id number] Valve Heart Aortic Epic 25mm - [id number] - [id number] Implanted:Qty: 1 on 11/10/2015 by Jorge Colón MD [place] [facility] N/A: Heart [facility] LENNY : CARDIOVASCULAR 03/05/2019 [id number] 5-00 / [id number] / Sut Steel 6 M654g - [id number] Implanted:Qty: 4 on 11/10/2015 by Jorge Colón MD [place] [facility] [place]/A: Chest JNJ : [employer] M654G / / Lens Intraoc 16.5 - [id number] - [id number] Implanted:Qty: 1 on 08/22/2020 by Pola Lozano MD at OR [facility] Right: Eye [employer]USCH [employer] LOMB 02/09/2025 [id number] / [id number] / [id number] Lens Intraoc 16.0 - [id number] - [id number] Implanted:Qty: 1 on 09/05/2020 by Pola Lozano MD at OR [facility] Left: Eye BAUSCH & LOMB 02/09/2025 [id number] / [id number] / [id number] Clip Quick 2.8mm 230cm - [id number] Implanted:Qty: 1 on 04/23/2021 by Dallas Askew MD at ENDOSCOPY [facility] Colon [employer] 12/11/2023 HX-202UR .A / / 13K Cath Thermodilution 6fr - [id number] Implanted:Qty: 1 on 04/09/2024 by Jose Cruz Hill DO at [facility] [employer] D[employer]AN [id number] 10/27/2025 [id number] / / [id number] Stent Xience Skypoint 3.25x15 - [id number] Implanted:Qty: 1 on 04/09/2024 by Jose Cruz Hill DO at [facility] [employer] : VASCULAR DEVICES 01/04/2027 [id number] / / [id number] documented as of this encounter Visit Diagnoses Diagnosis Acute on chronic heart failure with preserved ejection fraction (HCC)- Primary Pulmonary hypertension (HCC) Other chronic pulmonary heart diseases History of colon polyps Personal history of [...] Power of Attor baldev? No Care Teams Signs Cleaner Relationship Specialty Start Date End Date Chelle Vasquez DO [address] [place] [address] PCP - General Family Medicine 03/30/24 documented as of this encounter
--- OUTSIDE RECORDS SUMMARY | 2024-12-08 08:15 | External Medical Summary | Summary of Care ---
Author Name Unknown Organization [facility] Address [address] [facility] [address] Phone [phone] Care Team Providers Care Aba Tutor Name Role Phone JyotsnaChelle montiel Clifton MUÑOZ Primary Care Provider Encounter Details Date Type Department Care Team (Late st Contact Info) Description 11/23/2024 Population Health External Data Unspecified Department Allergies Active Allergy Reactions Criticality Noted Date Comments Allopurinol Rash 04/17/2020 Pollen 04/22/2012 Seasonal allergies Molds & Smuts 07/01/2022 documented as of this encounter (statuses as of 11/24/2024) Medications Fexofenadine HCl 180 MG Oral Tablet [...] Respimat 2.5 MCG/ACT Inhalation Aerosol Solution (Tiotropium [place] Monohydrate) Inhale 2 Puffs by mouth in [...] as of this encounter (statuses as of 11/24/2024) Active Problems Problem Noted Date Diagnosed Date [...] prox RCA 80% stenosis with placement of 3.51e75yw Xience Skypoint WEST, post-dilated with 3.5mm NC Balloon reducing stenosis to 0% with JAMES 3 flow Essential (primary) hypertension 12/08/2023 Hyperlipidemia 12/08/2023 Atherosclerosis of [place] co ronary artery without angina pectoris 12/08/2023 [...] as of this encounter (statuses as of 11/24/2024) Resolved Problems Problem Noted Date Diagnosed Date [...] as of this encounter (statuses as of 11/24/2024) Immunizations Name Administration Dates Next Due COVID-19 [...] 11/24/2024 2:30 PM EST Office Visit Cardiology, [facility] 132 [facility] [place] [address] Tracey Cole CRNP [address] [facility] [address] 12/14/2024 8:40 AM EST Office Visit Family Practice [address] [place] [address] 293 [facility] [place] [address] Chelle Vasquez, DO 293 [place] [address] 01/03/2025 11:00 AM EDT [facility] 132 [facility] [place] [address] Uriel Warren, DO 132 [facility] [place] [address] 01/06/2025 8:30 PM EDT PulmDiagnostic Sleep Lab, [facility] [address] [place] [address] [facility], Sleep [facility] [address] 02/11/2025 1:30 PM EDT Office Visit Dermatology [facility] 200 [facility] [place], [place] [address] Juanito Browning MD [address] [place] [address] 02/17/2025 11:30 AM EDT Office Visit Cardiology, [facility] 132 [facility] [place] [address] Uriel Warren O, DO 132 [facility] [place] [address] 02/17/2025 2:30 PM EDT Office Visit Hematology/Oncolog y [facility] 200 [facility] [place], [place] [phone] Leonarda Trevino CRNP [address] [place] [address] [place] [address] 03/23/2025 8:30 AM EDT Office Visit Pulmonary Medicine, [facility] 132 [facility] [place] [address] Marino Rodriguez MD [address] [place] [address] 05/04/2025 9:30 AM EDT Office Visit Pulmonary Medicine, [facility] 132 [facility] [place] [address] Marino Rodriguez MD [address] [place] [address] 05/06/2025 8:00 AM EDT Hospital Encounter ENDO [facility], Endoscopy Room [facility] 132 [facility] [place] [phone] Dallas Askew MD [address] [place] [address] 05/06/2025 8:00 AM EDT - 05/06/2025 8:30 AM EDT Surgery ENDO [facility], Endoscopy Room [facility] [address] [place] [phone] Dallas Askew MD [address] [place] [address] COLONOSCOPY FLEXIBLE PROXIMAL DIAGNOSTIC Scheduled Procedures Name [...] this encounter Medical Devices Implanted Type Area Rn Procedure Device Identifier Shelf Expiration Date Model / Serial / Lot Marker Coronary [facility] - [id number] Implanted:Qty: 2 on 11/10/2015 by Jorge Colón MD at [place] [facility] N/A: Heart [employer] [facility] / / [id number] Valve Heart Aortic Epic 25mm - [id number] - [id number] Implanted:Qty: 1 on 11/10/2015 by Jorge Colón MD at [place] [facility] N/A: Heart ST L[facility]NY : CARDIOVASCULAR 03/05/2019 [id number] 5-00 / [id number] 1 / Sut Steel 6 M654g - [id number] Implanted:Qty: 4 on 11/10/2015 by Jorge Cloón MD at [place] [facility] N/A: Chest JNJ : [employer] M654G / / Lens Intraoc 16.5 - [id number] - [id number] Implanted:Qty: 1 on 08/22/2020 by Pola Lozano MD at OR [facility] Right: Eye BAUSCH & LOMB 02/09/2025 [id number] 5 / [id number] / [id number] Lens Intraoc 16.0 - [id number] - [id number] Implanted:Qty: 1 on 09/05/2020 by Pola Lozano MD at OR [facility] Left: Eye BAUSCH [employer] LOMB 02/09/2025 [id number] 0 / [id number] / [id number] Clip Quick 2.8mm 230cm - [id number] Implanted:Qty: 1 on 04/23/2021 by Dallas Askew MD at ENDOSCOPY [facility] Colon [employer] 12/11/2023 HX-202UR .A / / 13K Cath Thermodilution 6fr - [id number] Implanted:Qty: 1 on 04/09/2024 by Jose Cruz Hill DO at CARD[facility] [employer] [id number] 10/27/2025 [id number] / / [id number] Stent Xience Skypoint 3.25x15 - [id number] Implanted:Qty: 1 on 04/09/2024 by Jose Cruz Hill DO at CARD[facility] LABS [facility] [employer] : VASCULAR DEVICES 01/04/2027 [id number] / / [id number] documented as of this encounter Advance Directives [...] Power of Attor baldev? No Care Teams Aba Tutor Relationship Specialty Start Date End Date Chelle Vasquez DO [address] [place] [address] PCP - General Family Medicine 03/30/24 documented as of this encounter
--- OUTSIDE RECORDS SUMMARY | 2024-12-08 08:15 | External Medical Summary | Summary of Care ---
Author Name Unknown Organization [facility] Address [address] [facility] [place] [address] Phone [phone] Care Team Providers Care Public Safety Police Name Role Phone Chelle Vasquez DO Primary Care Provider [phone] Reason for Visit * Reason Comments Dosage Adjustment In Person (Anticoag Cl inic) Follow Up Medication Discussion Encounter Details Date Type Department Care Team (Late st Contact Info) Description 11/12/2024 1:[address] [facility] Pharmacy Family Practice [address] [facility] [address] [place] [address] Watson, Pharmacist [address] [address] Medication management* Allergies Active Allergy Reactions Criticality Noted Date Comments Allopurinol Rash 04/17/2020 Pollen 04/22/2012 Seasonal allergies Molds & Smuts 07/01/2022 documented as of this encounter (statuses as of 11/15/2024) Medications Fexofenadine HCl 180 MG Oral Tablet [...] Tablet before bedtime. 68 Tablet 11 12/23/19 Active Additional Information Patient taking differently:3.125 mg OralDaily(Non-Specified), Only taking at bedtime, Reported on 11/12/2024 Aspirin 81 MG Oral Tablet Chewable Take 1 Tablet by mouth in the morning. Do not start before April 10, 2024. 90 Tablet 04/10/20 Active Torsemide 20 MG Oral Tablet (Demadex) Take 1 Tablet by mouth in the morning. 90 Tablet 04/09/20 24 Active Clopidogrel Bisulfate 75 MG Oral Tablet (pLAVix) Take 1 Tablet by mouth in the morning. Do not start before April 10, 2024. 90 Tablet 04/10/20 Active Amoxicillin 500 MG Oral Capsule (Amoxil) Take 4 Capsules by mouth daily as needed (dental appointments). Active Omeprazole 20 MG Oral Capsule Delayed Release (PriLOSEC) Take 1 Capsule by mouth at bedtime. 90 Capsule 05/31/20 24 Active Ezetimibe 10 MG Oral Tablet (Zetia) Take 1 Tablet by mouth in the morning. 100 Tablet 06/08/20 24 Active Nitroglycerin 0.4 MG Sublingual [...] Respimat 2.5 MCG/ACT Inhalation Aerosol Solution (Tiotropium [place] Monohydrate) Inhale 2 Puffs by mouth in the morning. 4 g 10 5 11:24 AM EST 09/14/20 Active HumidifierIndica tions:Hodgkin lymphoma, unspecified Hodgkin lymphoma type, unspecified body region (HCC) Humidifier for oxygen concentrator 2 Each 10/08/20 Active Compressor NebulizerIndicat ions:Hodgkin lymphoma, unspecified Hodgkin lymphoma type, unspecified body region (HCC),Wheezing,C hronic pleural effusion Inhale via nebulizer. Use as directed. 1 Each 12/30/20 24 Active Probenecid 500 MG Oral Tablet [...] PM EST 11/03/19 25 025 Active Lisinopril 5 MG Oral Tablet (Prinivil) Take 1 Tablet by mouth in the morning. In the morning.. 09/21/20 24 Active Lisinopril 10 MG Oral Tablet (Prinivil) [...] slowly dissolve in your mouth 70 [place] 10/25/202 4 4:44 PM EDT 08/06/20 24 025 [...] as of this encounter (statuses as of 11/15/2024) Active Problems Problem Noted Date Diagnosed Date [...] prox RCA 80% stenosis with placement of 3.32m71yd Xience Skypoint WEST, post-dilated with 3.5mm NC Balloon reducing stenosis to 0% with JAMES 3 flow Essential (primary) hypertension 12/08/2023 Hyperlipidemia 12/08/2023 Atherosclerosis of [place] ronary artery without angina pectoris 12/08/2023 [...] as of this encounter (statuses as of 11/15/2024) Resolved Problems Problem Noted Date Diagnosed Date [...] as of this encounter (statuses as of 11/15/2024) Immunizations Name Administration Dates Next Due COVID-19 [...] ages 0-17 years) Not on file 09/27/2024 Sex and Gender Information Value Date [...] documented in this encounter Progress Notes * Juanis Borden, Rosario Almaraz, [facility] - 11/12/2024 1:37 PM EST Medication Therapy [facility] - Medication Reconciliation Encounter Type: discussed with patient Med Bottles Available for Review: no Med Rec Reason: Fall AND CMR Patient reports a recent fall. Fell out of bed and blacked out after coughing fit and bronchospasm.Believes to have hit head on nightstand. Went to ED and was scanned. Patient is taking medications in the following classes which could increase patient's risk of falls: Diuretics - torsemide Opioids - tramadol Vasodilators - carvedilol Antihypertensives (only if hypotensive) - carvedilol and lisinopril Is vitamin D level within goal: never tested Has patient reported hypotension? no Has patient reported hypoglycemia? no Did patient hit head? yes Is patient on any anticoagulant or antiplatelet medications?yes Has the patient used marijuana recently? no What other interventions for fall prevention are being utilized? Treatment for bronchospasm Transition of Care Date of ED: 11/10/24 to [facility] Reason for Admission: head injury/syncope Medication changes during admission/on discharge: Added: none Modified: none Discontinued: none Does the patient currently have all of their medications in their home? Yes [x] Preferred pharmacy reviewed/updated [x] Problem list reviewed [x] Allergies reviewed and updated if needed [x] Drug interaction check completed [x] HEDIS list addressed Immunizations indicated: Up to date Medication Organization/Adherence: Has home care nurse or caregiver: No Patient uses a pill box/blister packs? Yes, refill(s) completed by self When you are at home, how often do you miss doses of medications? Less than once a week How difficult is it for you to pay for your medications? Somewhat difficult since change this year How often do you experience adverse effects from your medications? Never Labs/Vitals/Risk Scores: The ASCVD Risk score (Angela CALIXTO, et al., 2019) failed to calculate for the following reasons: Risk score cannot be calculated because patient has a medical history suggesting prior/existing ASCVD BP Readings from Last 3 Encounters: 11/12/24 138/80 11/03/24 122/80 11/03/24 122/74 Recent Labs Units 11/24/23 1449 07/17/23 0000 HEMOGLOBIN A1C - [facility] % 6.1* -- HEMOGLOBIN, F1G-[facility] -- 6.4* Recent Labs Units 11/03/24 0759 09/14/24 0956 06/30/24 0748 ESTIMATED GLOMERULAR FILTRATION RATE - [facility] mL/min 56* 63 64 Serum creatinine: 1.4 mg/dL (H) 11/03/24 0759 Estimated creatinine clearance: 56.2 mL/min (A) Assessment: Medication discrepancies identified: reports using albuterol + budesonide nebs twice daily as prescribed, but just using 1/2 vials due to time it takes to nebulize. - sporadically using tramadol - pulm sent in prednisone, but he did not take. - stopped advair due to thrush Dose/frequency of medications appropriate for current renal function? yes Other medication problems identified: continued respiratory/fluid issues Plan: Immunizations facilitated: None Patient education provided: - discussed new coinsurance system and that meds would be cheaper through mail order pharmacy if hewanted to get brand drugs through them - discussed use of nebulizer and order of nebs (albuterol then budesonide) and importance of rinsing out mouth after use Referral pended for follow up management of: N/A Medication recommendations: - discussed with PCP who referred to cardio - patient has HFpEF and is symptomatic - could benefit from SGLT2 and/or Entresto. I spent a total of 20-29 minutes (exact time 26 mins) on the date of service in preparation, delivery, and documentation of the care provided to Michael Hughes excluding any time spent in the performance of separately billed services or time spent by another provider/QHP. Rosario Crespo [facility] Clinical Pharmacist - Insole Toe Snipping Machine Operator Medication Therapy Management Clinic 11/12/2024, 1:37 PM documented in this encounter Plan of Treatment Upcoming Encounters Date Type Department Care Team (Latest Contact Info) Description 11/24/2024 2:30 PM EST Office Visit Cardiology, [address] [place] [address] Tracey Cole CRNP [address] [place] [address] 12/14/2024 8:40 AM EST Office Visit Family Practice [address] [place] [address] [address] [place] [address] Chelle Vasquez DO 293 [place] [address] 01/03/2025 11:00 AM EDT Office Visit Cardiology, [facility] [address] [facility] [place] [address] Uriel Warren, DO 132 [facility] [place] [address] 01/06/2025 8:30 PM EDT PulmDiagnostic Sleep Lab, [facility] [address] [place] [address] [facility], Sleep Med Night Sleep [address] [place] [address] 02/11/2025 1:30 PM EDT Office Visit Dermatology [facility] [address] [place] [address] Juanito Browning MD [address] [place] [address] 02/17/2025 11:30 AM EDT Office Visit Cardiology, [facility] [address] [facility] [place] [address] Uriel Warren, DO 132 [facility] [place] [address] 02/17/2025 2:30 PM EDT Office Visit Hematology/Oncolog y [facility] [address] [facility] [place] [id number] Leonarda Trevino CRNP [address] [place] [address] 03/23/2025 8:30 AM EDT Office Visit Pulmonary Medicine, [facility] [address] [place] [address] Marino Rodriguez [facility] [address] [facility] [address] 05/04/2025 9:30 AM EDT Office Visit Pulmonary Medicine, [facility] [address] [place] [address] Marino Rodriguez MD [address] [facility] [place] [address] 05/06/2025 8:00 AM EDT Hospital Encounter ENDO OSS, Endoscopy Room [facility] [address] [place] [phone] Dallas Askew MD [address] [place] [address] 05/06/2025 8:00 AM EDT - 05/06/2025 8:30 AM EDT Surgery ENDO OSS, Endoscopy Room [facility] [address] [place] [id number] Dallas Askew MD [address] [place] [address] COLONOSCOPY FLEXIBLE PROXIMAL DIAGNOSTIC Scheduled Procedures Name [...] this encounter Medical Devices Implanted Type Area Inspector Welded Parts Device Identifier Shelf Expiration Date Model / Serial / Lot Marker Coronary Am-Sd - [id number] Implanted:Qty: 2 on 11/10/2015 by Jorge Colón MD at OR [facility] N/A: Heart [employer] AM-SD / / [id number] Valve Heart Aortic Epic 25mm - [id number] - [id number] Implanted:Qty: 1 on 11/10/2015 by Jorge Colón MD at OR [facility] N/A: Heart ST L[facility]NY : CARDIOVASCULAR 03/05/2019 [id number] 5-00 / [id number] / Sut Steel 6 M654g - [id number] Implanted:Qty: 4 on 11/10/2015 by Jorge Colón MD at OR [facility] N/A: Chest JNJ : [employer] M654G / / Lens Intraoc 16.5 - [id number] - [id number] Implanted:Qty: 1 on 08/22/2020 by Pola Lozano MD at OR [facility] Right: Eye [employer]USCH [employer] LOMB 02/09/2025 [id number] / [id number] / [id number] Lens Intraoc 16.0 - [id number] - [id number] Implanted:Qty: 1 on 09/05/2020 by Pola Lozano MD at OR [facility] Left: Eye BAUSCH & LOMB 02/09/2025 [id number] / [id number] / [id number] Clip Quick 2.8mm 230cm - [id number] Implanted:Qty: 1 on 04/23/2021 by Dallas Askew MD at ENDOSCOPY [facility] Colon [employer] 12/11/2023 [id number] .[id number] / / 13K Cath Thermodilution 6fr - [id number] Implanted:Qty: 1 on 04/09/2024 by Jose Cruz Hill DO at CARDIAC LABS [facility] [employer] [id number] 10/27/2025 [id number] / / [id number] Stent Xience Skypoint 3.25x15 - [id number] Implanted:Qty: 1 on 04/09/2024 by Jose Cruz Hill DO at CARDIAC LABS [facility] [employer]STELL[employer] LABS : VASCULAR DEVICES 01/04/2027 [id number] / / [id number] documented as of this encounter Visit Diagnoses Diagnosis Medication management- Primary Encounter for long-term (current) use of [...] Power of Attor baldev? No Care Teams Public Safety Police Relationship Specialty Start Date End Date Chelle Vasquez DO [address] [place] [address] PCP - General Family Medicine 03/30/24 documented as of this encounter
--- OUTSIDE RECORDS SUMMARY | 2024-12-08 08:15 | External Medical Summary | Summary of Care ---
Author Name Unknown Organization [facility] Address [address] [facility] [address] Phone [phone] Care Team Providers Care End Maker Name Role Phone Chelle Vasquez DO Primary Care Provider [phone] Reason for Referral * Precert (Diagnostic Medical) (Within 10 days (routine)) - Authorized Specialty Diagnoses / Procedures Referred By Contac t Referred To Contact Sleep Disorders Diagnoses Hypersomnia Nocturnal hypoxemia Hypoventilation At risk for obstructive sleep apnea Procedures SLEEP STUDY, W/ CPAP (TREATMENT SETTINGS) Libby Rosales CRNP [address] [place] [address] Phone: tel: fax: Referral ID Status Reason Start Date Expiration Date V isits Requested Visits Authorized [id number] Authorized 11/12/2024 999 999 * Precert (Diagnostic Medical) (Within 10 days (routine)) - Authorized Specialty Diagnoses / Procedures Referred By Contac t Referred To Contact Sleep Disorders Diagnoses Hypersomnia Nocturnal hypoxemia Hypoventilation At risk for obstructive sleep apnea Procedures SLEEP STUDY, W/O CPAP Libby Rosales CRNP [address] [place] [address] Phone: tel: fax: Referral ID Status Reason Start Date Expiration Date V isits Requested Visits Authorized [id number] Authorized 11/12/2024 999 999 Reason for Visit * Reason Comments NEW PATIENT * Evaluate & Treat - Unlimited Visits (Within 30 days (routine)) - Authorized Specialty Diagnoses / Procedures Referred By Katherine johns Referred To Contact Sleep Medicine / Sleep Disorders Diagnoses Daytime somnolence Chelle Vasquez DO [address] [place] [address] Phone: tel: fax: Referral ID Status Reason Start Date Expiration Date Visits Requested Visits Authorized [id number] Authorized Specialty Services Required 11/03/2024 2 2 Encounter Details Date Type Department Care Team (Late st Contact Info) Description 11/12/2024 10:00 AM EST Office Visit Sleep Disorders [facility] [address] [facility] [place] [phone] Libby Rosales CRNP [address] [facility] [place] [address] Hypersomnia*; Nocturnal hypoxemia; Hypoventilation; At risk for obstructive sleep apnea Allergies Active Allergy Reactions Criticality Noted Date [...] Respimat 2.5 MCG/ACT Inhalation Aerosol Solution (Tiotropium Mountain Iron Monohydrate) Inhale 2 Puffs by mouth in the morning. 4 g 10 5 11:24 AM EST 09/14/20 24 Active HumidifierIndica tions:Hodgkin lymphoma, unspecified Hodgkin lymphoma type, unspecified body region (HCC) Humidifier for oxygen concentrator 2 Each 10/08/20 24 Active Compressor NebulizerIndicat ions:Hodgkin lymphoma, unspecified Hodgkin [...] prox RCA 80% stenosis with placement of 3.83f36qt Xience Skypoint WEST, post-dilated with 3.5mm NC Balloon reducing stenosis to 0% with JAMES 3 flow Essential (primary) hypertension 12/08/2023 Hyperlipidemia 12/08/2023 Atherosclerosis of [place] co ronary artery without angina pectoris 12/08/2023 [...] Sign Reading Time Taken Comments Blood Pressure 138/80 11/12/2024 10:04 AM EST Pulse 96 11/12/2024 10:04 AM EST Temperature 35.4 C (95.7 F) 11/12/2024 10:[address] Respiratory Rate 16 11/12/2024 10:04 AM EST Oxygen Saturation 100% 11/12/2024 10:04 AM EST Inhaled Oxygen Concentration - - Weight 103 kg (227 lb) 11/12/2024 10:04 AM EST Height 170.2 cm (5' 7") 11/12/2024 10:04 AM EST Body Mass Index 35.55 11/12/2024 10:04 AM EST documented in this encounter Functional Status [...] documented in this encounter Progress Notes * Libby Rosales CRNP - 11/12/2024 10:10 AM EST [facility] SLEEP MEDICINE CONSULTATION Mr. Michael Hughes is a 69 year old male with history of HTN, CHF, atrial fibrillation, asthma, MGUS,Hodgkin lymphoma x/p chest XRT , chronic loculated right pleural effusion since 11/2015 post CABG, low testosterone seen at the request of Chelle Vasquez DO for evaluation of daytime somnolence. Nocturnal oximetry completed 04/21/2024 while breathing room air showed SpO2 bipin 75% with 26 minutes <89%, 3% FRANCK 18. He was subsequently started on supplemental oxygen during sleep. Notes poor sleep since having heart cath with AVR end of March. Sleeping in guest room now, wearing oxygen. Elderly dog is in a crate in the room with his , waking her 3 times a night to go out. He may hear them as he's already awake or will be woken by them.He's exhausted during the day. Review of sleep symptoms ("+" indicates reports, "-" indicates denies): (-) Snoring- only noted after having heart surgery (-) Witnessed apneas (+) Nocturnal choking and gasping- noting cough and "bronchospasms" (-) Nocturnal gastroesophageal reflux- on longstanding PPI (+) Dry mouth on waking- generally with dry mouth, oxygen worsens (-) Morning headaches (+) Non-restorative sleep- lately (+) Daytime sleepiness or fatigue- exhausted (-) Abnormal sleep behaviors including dream enactment or sleep walking Bedroom environment: Lives with and adult son. Sleeps in bed in guest room most recently, apart from , with oxygen on. Right side overnight. On wedge supine during naps. Sleep Schedule: In bed 10-11p Time to fall asleep minutes Nighttime awakenings/ Reason 3x, restroom once a night Wake after sleep onset brief Awake Time/Alarm Perceived total sleep time Spontaneously around 7:30a 8-9 hours Naps Daily 1-2 hours Cornish Sleepiness Scale Question 11/09/2024 9:17 PM EST - Filed by Patient What is the chance you will doze off in the following situation? Sitting and reading Moderate chance of dozing Watching TV Moderate chance of dozing Sitting inactive in a public place, such as a theater or meeting Slight chance of dozing As a passenger in a car for an hour without a break Moderate chance of dozing Lying down to rest in the afternoon when circumstances permit High chance of dozing When sitting and talking to someone No chance of dozing When sitting quietly after lunch without alcohol Moderate chance of dozing In a car, while stopped for a few minutes in traffic No chance of dozing Score (range: 0 - 24) 12 Functional Outcomes Of Sleep Question 11/09/2024 9:19 PM EST - Filed by Patient Please complete the following questions. Do you have difficulty concentrating because you are sleepy or tired? Yes, a little Do you have difficulty remembering things because you are sleepy or tired? Yes, a little Do you have difficulty operating a motor vehicle for short distances (less than 100 miles) because you become sleepy? No Do you have difficulty operating a motor vehicle for long distances (more than 100 miles) because you become sleepy? Yes, moderate Do you have difficulty visiting family or friends in their home because you become sleepy or tired?No Has your relationship with family, friends, or work colleagues been affected because you are sleepyor tired? Yes, a little Do you have difficulty watching a movie or video because you become sleepy or tired? Yes, moderate Do you have difficulty being as active as you want to be in the evening because you are tired or sleepy? Yes, moderate Do you have difficulty being as active as you want to be in the morning because you are tired or sleepy? Yes, moderate Has your mood been affected because you are sleepy or tired? Yes, moderate Score (range: 10 - 40) 27 Medical History: Patient Active Problem List Diagnosis Actinic keratosis Hodgkin lymphoma (HCC) Aortic stenosis S/P AVR (aortic valve replacement) History of nonmelanoma skin cancer MGUS (monoclonal gammopathy of unknown significance) History of therapeutic radiation Essential (primary) hypertension Hyperlipidemia Atherosclerosis of [place] coronary artery without angina pectoris Angina at rest (HCC) S/P drug eluting coronary stent placement Calculus of gallbladder without cholecystitis without obstruction Monoallelic mutation of MITF gene Chronic respiratory failure with hypoxia (HCC) Hypertensive heart disease with heart failure (HCC) Atrial fibrillation (HCC) Acute on chronic heart failure with preserved ejection fraction (HCC) Moderate persistent asthma without complication Surgical History: Past Surgical History: Procedure Laterality Date COLONOSCOPY, DIAGNOSTIC (RECTUM) 07/01/2017 benign polyp, fair prep, repeat 3 yrs/COLONOSCOPY FLEXIBLE PROXIMAL DIAGNOSTIC performed by Wagner Hernandez MD at ENDOSCOPY [facility] COLONOSCOPY, DIAGNOSTIC (RECTUM) 04/23/2021 adenomatous & hyperplastic polyps, diverticulosis, repeat 6-12 mo / COLONOSCOPY FLEXIBLE PROXIMAL DIAGNOSTIC performed by Dallas Askew MD at ENDOSCOPY [facility] COLONOSCOPY, DIAGNOSTIC (RECTUM) 10/22/2022 benign adenomatous & serrated adenomatous polyps, diverticulosis, repeat 6 mo / COLONOSCOPY FLEXIBLE PROXIMAL DIAGNOSTIC performed by Dallas Askew MD at ENDOSCOPY [facility] COLONOSCOPY, DIAGNOSTIC (RECTUM) 04/08/2023 hemorrhoids/diverticulosis/biopsies show adenomatous and hyperplastic polyps/recall 6 months/COLONOSCOPY FLEXIBLE PROXIMAL DIAGNOSTIC performed by Dallas Askew MD at ENDOSCOPY [facility] COLONOSCOPY, DIAGNOSTIC (RECTUM) 10/21/2023 diverticulosis/hemorrhoids/multiple polyps/biopsies show adenomatous and hyperplastic polyps/recall6 months/COLONOSCOPY FLEXIBLE PROXIMAL DIAGNOSTIC performed by Dallas Askew MD at ENDOSCOPY [facility] CORONARY ANGIOGRAPHY W/RIGHT+LEFT CATH N/A 04/09/2024 CORONARY ANGIOGRAPHY W/RIGHT+LEFT CATH performed by Jose Cruz Hill DO at [facility]ARDI[facility]S [facility] CORONARY ARTERIES BYPASS, TWO 11/10/2015 CORONARY ARTERY BYPASS GRAFT WITH 2 VEIN GRAFTS performed by Jorge Colón MD at [facility] ENDO,VIDEO ASSIST HARVEST KAROLINE 11/10/2015 ENDOSCOPY VIDEO ASSISTED HARVEST VEIN performed by Jorge Colón MD at OR [facility] REMOVE CATARACT, INSERT LENS PROSTH Right 08/22/2020 RIGHT EXTRACAPSULAR CATARACT REMOVAL WITH INTRAOCULAR LENS performed by Pola Lozano MD at [facility] REMOVE CATARACT, INSERT LENS PROSTH Left 09/05/2020 LEFT EXTRACAPSULAR CATARACT REMOVAL WITH INTRAOCULAR LENS performed by Pola Lozano MD at [facility] REPLACEMENT AORTIC VALVE, BYPASS WITH PROSTHETIC VALVE 11/10/2015 REPLACEMENT AORTIC VALVE performed by Jorge Colón MD at OR [facility] Denies history of upper airway, palate or jaw surgery Current Medications: Current Outpatient Medications Medication Sig Dispense Refill predniSONE 10 MG Oral Tablet (Deltasone) Take 2 Tablets by mouth daily in the morning with meals for 5 days; then 1 tablet daily for 5 days; then one-half tablet daily for 5 days, then STOP. 18 Tablet 1 Albuterol Sulfate (2.5 MG/3ML) 0.083% Inhalation Nebulization [...] 1 Tablet before bedtime. 60 Tablet 5 Compressor Nebulizer Inhale via nebulizer. Use as directed. 1 Each 0 Humidifier Humidifier for oxygen concentrator 2 Each 0 Spiriva Respimat 2.5 MCG/ACT Inhalation Aerosol Solution (Tiotropium Mountain Iron Monohydrate) Inhale 2 Puffs by mouth in the morning. 4 g 10 Fluticasone-Salmeterol 115-21 MCG/ACT Inhalation Aerosol (Advair HFA) Inhale 2 Puffs by mouth in the morning and 2 Puffs before bedtime. 12 g 12 Fluticasone-Salmeterol 115-21 MCG/ACT Inhalation Aerosol (Advair HFA) Inhale 2 Puffs by mouth in the morning and 2 Puffs before bedtime. (Patient not taking: Reported on 11/03/2024) 12 g 12 Atorvastatin Calcium 40 MG Oral Tablet (Lipitor) Take 1 Tablet by mouth in the morning. 100 Tablet 3 Nitroglycerin 0.4 MG Sublingual Tablet Sublingual (Nitrostat) Place 1 Tablet under the tongue every5 minutes as needed for Pain, Chest. up to 3 doses in 15 minutes 25 Tablet 11 Lisinopril 10 MG Oral Tablet (Prinivil) Take 0.5 Tablets by mouth in the morning. 90 Tablet 3 Ezetimibe 10 MG Oral Tablet (Zetia) Take 1 Tablet by mouth in the morning. 100 Tablet 3 Omeprazole 20 MG Oral Capsule Delayed Release (PriLOSEC) Take 1 Capsule by mouth at bedtime. 90 Capsule 3 Amoxicillin 500 MG Oral Capsule (Amoxil) Take 4 Capsules by mouth daily as needed (dental appointments). Aspirin 81 MG Oral Tablet Chewable Take [...] mouth daily. Only taking at bedtime) 68 Laeqyp04 Potassium Chloride ER 10 MEQ Oral Tablet Extended Release Take 1 Tablet by mouth in the morning. traMADol HCl 50 MG Oral Tablet (Ultram) Take 1 Tablet by mouth every 6 hours as needed. Vitamin D 50 MCG (2000 UT) Oral Capsule Take 2,000 Units by mouth at bedtime. Fexofenadine HCl 180 MG Oral Tablet Take 1 Tablet by mouth in the morning. No current facility-administered medications for this visit. Social History: Caffeine: coffee/am Alcohol use: 1 drink several nights a week Nicotine use: denies Illicit drug use: denies Routine exercise: denies Family History: Denies family history of sleep related disorders. Suspects daughter with undiagnosed JIM. Physical Exam: BP 138/80 | Pulse 96 | Temp 35.4 C (95.7 F) (Tympanic) | Resp 16 | Ht 1.702 m (5' 7") | Wt 103 kg (227 lb) | SpO2 100% | BMI 35.55 kg/m | BSA 2.21 m Constitutional: No acute distress, accompanied by significant other Nose: Normal external appearance Oral: Mallampati 3 Neck: Circumference 17.75 inches Chest: Normal respiratory effort at rest Cardiac: Regular rate and rhythm, LE edema present Neuro: Alert, oriented, fluent/clear speech Psych: Appropriate mood and affect Component Latest Ref Rng 11/03/2024 CO2 22 - 32 mmol/L 32 Impression/Recommendations: At risk for JIM and OHS with known nocturnal hypoxemia and elevated FRANCK on overnight oximetry with reports of poor sleep quality and daytime somnolence. - Discussed the pathophysiology, implications on short- and long-term health, diagnostic evaluation, and likely treatment options of JIM, OHS - Schedule an overnight PSG - split night protocol if meets criteria. In-lab study recommended due to request for TcCO2 monitoring. Titrate per order. - Avoid driving or engaging in any activity that requires full alertness if feeling sleepy, drowsy or otherwise impaired. Results and recommendations will be provided through [employer] once sleep testing is reviewed. GILBERTO [facility] I spent a total of Greater than 55 mins (exact time 60 mins) on the date of service in preparation,delivery, and documentation of the care provided to Michael Hughes excluding any time spent in the performance of separately billed services or time spent by another provider/QHP. documented in this encounter Nursing Notes * Tiff Carlos LPN - 11/12/2024 10:08 AM EST Chief Complaint Patient presents with NEW PATIENT No PSG HX Neck: 17.75" Cornish Sleepiness Scale Question 11/09/2024 9:17 PM EST - Filed by Patient What is the chance you will doze off in the following situation? Sitting and reading Moderate chance of dozing Watching TV Moderate chance of dozing Sitting inactive in a public place, such as a theater or meeting Slight chance of dozing As a passenger in a car for an hour without a break Moderate chance of dozing Lying down to rest in the afternoon when circumstances permit High chance of dozing When sitting and talking to someone No chance of dozing When sitting quietly after lunch without alcohol Moderate chance of dozing In a car, while stopped for a few minutes in traffic No chance of dozing Score (range: 0 - 24) 12 Functional Outcomes Of Sleep Question 11/09/2024 9:19 PM EST - Filed by Patient Please complete the following questions. Do you have difficulty concentrating because you are sleepy or tired? Yes, a little Do you have difficulty remembering things because you are sleepy or tired? Yes, a little Do you have difficulty operating a motor vehicle for short distances (less than 100 miles) because you become sleepy? No Do you have difficulty operating a motor vehicle for long distances (more than 100 miles) because you become sleepy? Yes, moderate Do you have difficulty visiting family or friends in their home because you become sleepy or tired?No Has your relationship with family, friends, or work colleagues been affected because you are sleepyor tired? Yes, a little Do you have difficulty watching a movie or video because you become sleepy or tired? Yes, moderate Do you have difficulty being as active as you want to be in the evening because you are tired or sleepy? Yes, moderate Do you have difficulty being as active as you want to be in the morning because you are tired or sleepy? Yes, moderate Has your mood been affected because you are sleepy or tired? Yes, moderate Score (range: 10 - 40) 27 Travel Screening Question 11/12/2024 9:57 AM EST - Filed by Patient Do you have any of the following new or worsening symptoms? None of these Have you recently been in contact with someone who was sick? No / Unsure documented in this encounter Plan of Treatment Upcoming Encounters Date Type Department Care Team (Latest Contact Info) Description 11/24/2024 2:30 PM EST [facility] Visit [facility] [address] [facility] [address] Tracey Cole CRNP [address] [place] [id number] 12/14/2024 8:40 AM EST Office Visit Family Practice [address] [facility] [address] [facility], [place] [phone] Chelle Vasquez DO [address] [facility] [address] 01/03/2025 11:00 AM EDT Office Visit Cardiology, [facility] [address] [facility] [place] [address] Uriel Warren, DO [address] [place] [address] 01/06/2025 8:30 PM EDT PulmDiagnostic Sleep Lab, [facility] [address] [place] [address] [facility], Sleep Med Night Sleep [address] [place], [place] [id number] 02/11/2025 1:30 PM EDT Office Visit Dermatology [facility] [address] [facility] [place] [address] Juanito Browning MD [address] [place] [address] 02/17/2025 11:30 AM EDT Office Visit Cardiology, [facility] [address] [facility] [place] [address] Uriel Warren, DO 132 [facility] [place] [address] 02/17/2025 2:30 PM EDT Office Visit Hematology/Oncolog y [facility] [address] [facility] [place] [phone] Leonarda Trevino CRNP [address] [place] [address] 03/23/2025 8:30 AM EDT Office Visit Pulmonary Medicine, [facility] [address] [facility] [place] [address] Marino Rodriguez MD [address] [place] [address] 05/04/2025 9:30 AM EDT Office Visit Pulmonary Medicine, [facility] [address] [place] [address] Marino Rodriguez MD [address] [place] [address] 05/06/2025 8:00 AM EDT Hospital Encounter ENDO [facility], Endoscopy Room [facility] [address] [place] [phone] Dallas Askew MD [address] [place] [address] 05/06/2025 8:00 AM EDT - 05/06/2025 8:30 AM EDT Surgery ENDO [facility], Endoscopy Room [facility] [address] [place] [phone] Dallas Askew MD [address] [place] [address] COLONOSCOPY FLEXIBLE PROXIMAL DIAGNOSTIC Scheduled Orders Name Type Priority Associated Diagnoses Orde r Schedule SLEEP STUDY, W/O CPAP Procedures Routine Hypersomnia Nocturnal hypoxemia Hypoventilation At risk for obstructive sleep apnea Ordered: 11/12/2024 SLEEP STUDY, W/ CPAP (TREATMENT SETTINGS) Procedures Routine Hypersomnia Nocturnal hypoxemia Hypoventilation At risk for obstructive sleep apnea Ordered: 11/12/2024 Scheduled Procedures Name Priority Associated Diagnoses Date/Ti [...] this encounter Medical Devices Implanted Type Area Estimating Engineer Device Identifier Shelf Expiration Date Model / Serial / Lot Marker Coronary [facility] - [id number] Implanted:Qty: 2 on 11/10/2015 by Jorge Colón MD at OR [facility] N/A: Heart [employer] [facility] / / [id number] Valve Heart Aortic Epic 25mm - [id number] - [id number] Implanted:Qty: 1 on 11/10/2015 by Jorge Colón MD at OR [facility] N/A: Heart [facility] : CARDIOVASCULAR 03/05/2019 [id number] 5-00 / [id number] / Sut Steel 6 M654g - [id number] Implanted:Qty: 4 on 11/10/2015 by Jorge Colón MD at OR [facility] N/A: Chest JNJ : [employer] M654G / / Lens Intraoc 16.5 - [id number] - [id number] Implanted:Qty: 1 on 08/22/2020 by Pola Lozano MD at OR [facility] Right: Eye [employer] 02/09/2025 [id number] / [id number] / [id number] Lens Intraoc 16.0 - [id number] - [id number] Implanted:Qty: 1 on 09/05/2020 by Pola Lozano MD at OR [facility] Left: Eye [employer] LOM[employer] 02/09/2025 [id number] / [id number] / [id number] Clip Quick 2.8mm 230cm - [id number] Implanted:Qty: 1 on 04/23/2021 by Dallas Askew MD at ENDOSCOPY [facility] Colon [employer] 12/11/2023 [id number] .[id number] / / 13K Cath Thermodilution 6fr - [id number] Implanted:Qty: 1 on 04/09/2024 by Jose Cruz Hill DO at CARDIAC LABS [facility] [employer] [id number] 10/27/2025 [id number] / / [id number] Stent Xience Skypoint 3.25x15 - [id number] Implanted:Qty: 1 on 04/09/2024 by Jose Cruz Hill DO at CARDIAC LABS [facility] [employer] [facility] : VASCULAR DEVICES 01/04/2027 [id number] / / [id number] documented as of this encounter Visit Diagnoses Diagnosis Hypersomnia- Primary Hypersomnia, unspecified Nocturnal hypoxemia Hypoxemia Hypoventilation Other dyspnea and respiratory abnormality At risk for obstructive sleep apnea History of colon polyps Personal history of [...] Power of Attor baldev? No Care Teams End Maker Relationship Specialty Start Date End Date Chelle Vasquez DO [address] [place] [address] PCP - General Family Medicine 03/30/24 documented as of this encounter
--- OUTSIDE RECORDS SUMMARY | 2024-12-08 08:15 | External Medical Summary | Summary of Care ---
Author Name Unknown Organization [facility] Address [address] [facility] [place] [address] Phone [phone] Care Team Providers Care Front Of House Manager Name Role Phone JyotsnaMona montieljackeline Lazo DO Primary Care Provider Encounter Details Date Type Department Care Team (Late st Contact Info) Description 11/10/2024 Result Scan Unspecified Department <No scans attached> Allergies Active Allergy Reactions Criticality Noted Date Comments Allopurinol Rash 04/17/2020 Pollen 04/22/2012 Seasonal allergies Molds & Smuts 07/01/2022 documented as of this encounter (statuses as of 11/12/2024) Medications Fexofenadine HCl 180 MG Oral Tablet [...] OralDaily(Non-Specified), Only taking at bedtime, Reported on 11/03/2024 Aspirin 81 MG Oral Tablet Chewable Take [...] the morning. 100 Tablet 3 4 Active Lisinopril 10 MG Oral Tablet (Prinivil) Take 0.5 Tablets by mouth in the morning. 90 Tablet 3 4 Active Nitroglycerin 0.4 MG Sublingual Tablet Sublingual (Nitrostat) Place 1 Tablet under the tongue every 5 minutes as needed for Pain, Chest. up to 3 doses in 15 minutes 25 Tablet 11 07/22/2024 11:02 AM EDT 4 Active Atorvastatin Calcium 40 MG Oral Tablet (Lipitor) Take 1 Tablet by mouth in the morning. 100 Tablet 3 10/20/2024 1:36 PM EST 4 Active Fluticasone-Salm eterol 115-21 MCG/ACT Inhalation Aerosol (Advair HFA) Inhale 2 Puffs by mouth in the morning and 2 Puffs before bedtime. 12 g 12 10/07/2024 5:38 PM EST 4 Active Fluticasone-Salm eterol 115-21 MCG/ACT Inhalation Aerosol (Advair HFA) Inhale 2 Puffs by mouth in the morning and 2 Puffs before bedtime. 12 g 12 4 Active Additional Information Patient not taking.Reported on 11/03/2024 Spiriva Respimat 2.5 MCG/ACT Inhalation Aerosol Solution (Tiotropium [place] Monohydrate) Inhale 2 Puffs by mouth in the morning. 4 g 10 10/07/2024 5:38 PM EST 4 Active HumidifierIndica tions:Hodgkin lymphoma, unspecified [...] 11/05/2024 1:33 PM EST 5 025 Active predniSONE 10 MG Oral Tablet (Deltasone) Take 2 Tablets by mouth daily in the morning with meals for 5 days; then 1 tablet daily for 5 days; then one-half tablet daily for 5 days, then STOP. 18 Tablet 1 5 Active documented as of this encounter (statuses as of 11/12/2024) Active Problems Problem Noted Date Diagnosed Date [...] prox RCA 80% stenosis with placement of 3.06z47la Xience Skypoint WEST, post-dilated with 3.5mm NC Balloon reducing stenosis to 0% with JAMES 3 flow Essential (primary) hypertension 12/08/2023 Hyperlipidemia 12/08/2023 Atherosclerosis of [place] co ronary artery without angina pectoris 12/08/2023 [...] as of this encounter (statuses as of 11/12/2024) Resolved Problems Problem Noted Date Diagnosed Date [...] as of this encounter (statuses as of 11/12/2024) Immunizations Name Administration Dates Next Due COVID-19 [...] Upcoming Encounters Date Type Department Care Team (Late st Contact Info) Description 11/12/2024 10:00 AM EST Office Visit Sleep Disorders Ctr [facility] 132 [facility] [place] [address] Libby Rosales CRNP 132 [facility] [place] [address] 11/12/2024 1:40 PM EST Office Visit Family Practice [address] [place] [address] 293 [facility] [place] [address] Chelle Vasquez DO 293 [facility], [place] [address] 11/12/2024 1:40 PM EST Pharmacy Family Practice 65 [facility] 293 [facility] [place] [address] College, Pharmacist [address] [place] [address] 11/24/2024 2:30 PM EST Office Visit Cardiology, [facility] 132 [place] [address] Tracey Cole CRNP 400 [facility] [place] [phone] 12/14/2024 8:40 AM EST Office Visit Family Practice [address] [place] [address] 293 [facility] [place] [address] Chelle Vasquez, DO 293 [place] [address] 01/03/2025 11:00 AM EDT Office Visit Cardiology, [facility] 132 [place] [address] Uriel Warren, DO 132 [place] [address] 02/11/2025 1:30 PM EDT Office Visit Dermatology [facility] 200 [facility] [place] [address] Juanito Browning MD 16 [place] [address] 02/17/2025 11:30 AM EDT Office Visit Cardiology, [facility] 132 [facility] [place] [address] Uriel Warren, DO 132 [facility] [address] 02/17/2025 2:30 PM EDT Office Visit Hematology/Oncolog y [facility] 200 [facility] [phone] Leonarda Trevino CRNP 400 [facility] [place] [address] 03/23/2025 8:30 AM EDT Office Visit Pulmonary Medicine, [facility] [address] [place] [address] Marino Rodriguez MD [address] [place] [address] 05/04/2025 9:30 AM EDT Office Visit Pulmonary Medicine, [facility] [address] [place] [address] Marino Rodriguez MD 217 [facility] [place] [address] 05/06/2025 8:00 AM EDT Hospital Encounter ENDO [facility], Endoscopy Room [facility] [address] [place] [phone] Dallas Askew MD [address] [place] [address] 05/06/2025 8:00 AM EDT - 05/06/2025 8:30 AM EDT Surgery ENDO [facility], Endoscopy Room [facility] [address] [place] [phone] Dallas Askew MD [address] [place] [address] COLONOSCOPY FLEXIBLE PROXIMAL DIAGNOSTIC Scheduled Procedures Name [...] this encounter Medical Devices Implanted Type Area District Agent Device Identifier Shelf Expiration Date Model / Serial / Lot Marker Coronary [facility]-Sd - [id number] Implanted:Qty: 2 on 11/10/2015 by Jorge Colón MD at OR [facility] N/A: Heart [employer] [facility] / / [id number] Valve Heart Aortic Epic 25mm - [id number] - [id number] Implanted:Qty: 1 on 11/10/2015 by Jorge Colón MD at OR [facility] N/A: Heart ST L[facility]NY : CARDIOVASCULAR 03/05/2019 [id number] 5- / [id number] 1 / Sut Steel 6 M654g - [id number] Implanted:Qty: 4 on 11/10/2015 by Jorge Colón MD at OR [facility] N/A: Chest JNJ : [employer] M654G / / Lens Intraoc 16.5 - [id number] - [id number] Implanted:Qty: 1 on 08/22/2020 by Pola Lozano MD at OR [facility] Right: Eye [employer]OMB 02/09/2025 [id number] 5 / [id number] 39 / [id number] Lens Intraoc 16.0 - [id number] - [id number] Implanted:Qty: 1 on 09/05/2020 by Pola Lozano MD at OR [facility] Left: Eye [employer] LOMB 02/09/2025 [id number] 0 / [id number] / [id number] Clip Quick 2.8mm 230cm - [id number] Implanted:Qty: 1 on 04/23/2021 by Dallas Askew MD at ENDOSCOPY [facility] Colon [employer] 12/11/2023 HX-202UR .A / / 13K Cath Thermodilution 6fr - [id number] Implanted:Qty: 1 on 04/09/2024 by Jose Cruz Hill DO at CARDIAC LABS [facility] [employer] D[employer] [id number] 10/27/2025 [id number] / / [id number] Stent Xience Skypoint 3.25x15 - [id number] Implanted:Qty: 1 on 04/09/2024 by Jose Cruz Hill DO at CARDIAC LABS [facility] [employer] : VASCULAR DEVICES 01/04/2027 [id number] / / [id number] documented as of this encounter Procedures Procedure Name Priority Date/Time Associated Diagnosis Comments RADIOLOGY SCANNED RESULT 11/10/2024 RADIOLOGY SCANNED RESULT 11/10/2024 documented in this encounter Results * RADIOLOGY SCANNED RESULT (11/10/2024) 11/10/2024 us No Physician Data Unknown DIAGNOSTIC RADIOLOGY S ERVICES Final Result * RADIOLOGY SCANNED RESULT (11/10/2024) 11/10/2024 us No Physician Data Unknown DIAGNOSTIC RADIOLOGY S ERVICES Final Result documented in this encounter Advance Directives * [...] Power of Attor baldev? No Care Teams Front Of House Manager Relationship Specialty Start Date End Date Chelle Vasquez DO 293 [place] [address] PCP - General Family Medicine 03/30/24 documented as of this encounter
--- OUTSIDE RECORDS SUMMARY | 2024-12-08 08:16 | External Medical Summary | Summary of Care ---
Author Name Unknown Organization [facility] Address [address] [place] [address] Phone [phone] Care Team Providers Care Center Director Lead Teacher Name Role Phone Chelle Vasquez DO Primary Care Provider [phone] Encounter Details Date Type Department Care Team (Late st Contact Info) Description 11/12/2024 Orders Only Family Practice [facility] 293 [place] [address] Chelle Vasquez DO 293 [place] [address] Allergies Active Allergy Reactions Criticality Noted Date [...] Respimat 2.5 MCG/ACT Inhalation Aerosol Solution (Tiotropium [place] Monohydrate) Inhale 2 Puffs by mouth in [...] prox RCA 80% stenosis with placement of 3.41r60cg Xience Skypoint WEST, post-dilated with 3.5mm NC Balloon reducing stenosis to 0% with JAMES 3 flow Essential (primary) hypertension 12/08/2023 Hyperlipidemia 12/08/2023 Atherosclerosis of [place] co ronary artery without angina pectoris 12/08/2023 [...] Yrs 07/25/2023,07/28/2020 TDAP (age 10 and older)(Boostrix) 10/02/2023,12/ 09/2012 Zoster Vaccine Recombinant (Shingrix) 03/18/2020 ,10/27/2019 documented [...] AM EST Office Visit Sleep Disorders Ctr [facility] 132 [facility] [place] [address] Libby Rosales CRNP [address] [place] [address] 11/12/2024 1:40 PM EST Office Visit Family Practice [address] [place] [address] [facility] [address] Chelle Vasquez DO 293 [facility], [place] [address] 11/12/2024 1:40 PM EST Pharmacy Family Practice 65 [facility] 293 [place] [address] College, Pharmacist [address] [place] [address] 11/24/2024 2:30 PM EST Office Visit Cardiology, [facility] 132 [facility] [place] [address] Tracey Cole, GILBERTO 400 [facility] [place] [address] 12/14/2024 8:40 AM EST Office Visit Family Practice [address] [place] [address] 293 [place] [address] Chelle Vasquez, DO 293 [facility] [place] [address] 01/03/2025 11:00 AM EDT Office Visit Cardiology, [facility] 132 [facility] [place] [address] Uriel Warren, DO 132 [facility] [address] 02/11/2025 1:30 PM EDT Office Visit Dermatology [facility] 200 [facility] [place] [address] Juanito Browning MD [address] [place] [address] 02/17/2025 11:30 AM EDT Office Visit Cardiology, [facility] 132 [facility] [place] [address] Uriel Warren, DO 132 [facility] [place] [address] 02/17/2025 2:30 PM EDT Office Visit Hematology/Oncolog y [facility] [address] [place], [place] [phone] Leonarda Trevino CRNP 400 [place] [address] 03/23/2025 8:30 AM EDT Office Visit Pulmonary Medicine, [facility] [address] [place] [address] Marino Rodriguez MD [address] [facility] [place] [address] 05/04/2025 9:30 AM EDT Office Visit Pulmonary Medicine, [facility] 132 [place] [address] Marino Rodriguez MD [address] [facility] [place] [address] 05/06/2025 8:00 AM EDT Hospital Encounter ENDO [facility], Endoscopy Room [facility] 132 [place] [phone] Dallas Askew MD [address] [place] [address] 05/06/2025 8:00 AM EDT - 05/06/2025 8:30 AM EDT Surgery ENDO [facility], Endoscopy Room [facility] 132 [place] [phone] Dallas Askew MD [address] [place] [address] COLONOSCOPY FLEXIBLE PROXIMAL DIAGNOSTIC Scheduled Procedures Name [...] this encounter Medical Devices Implanted Type Area Forming And Assembling Supervisor Device Identifier Shelf Expiration Date Model / Serial / Lot Marker Coronary [facility]-Sd - [id number] Implanted:Qty: 2 on 11/10/2015 by Jorge Colón MD at OR [facility] N/A: Heart [employer] AM-[place] / / [id number] Valve Heart Aortic Epic 25mm - [id number] - [id number] Implanted:Qty: 1 on 11/10/2015 by Jorge Colón MD at OR [facility] [place] N/A: Heart ST [facility]NY : CARDIOVASCULAR 03/05/2019 [id number] 5-00 / [id number] 1 / Sut Steel 6 M654g - [id number] Implanted:Qty: 4 on 11/10/2015 by Jorge Colón MD at OR [facility] N/A: Chest JNJ : [employer] M654G / / Lens Intraoc 16.5 - [id number] - [id number] Implanted:Qty: 1 on 08/22/2020 by Pola Lozano MD at OR [facility] Right: Eye [employer]USCH [employer] LOMB 02/09/2025 [id number] 5 / [id number] 39 / [id number] Lens Intraoc 16.0 - [id number] - [id number] Implanted:Qty: 1 on 09/05/2020 by Pola Lozano MD at OR [facility] Left: Eye [employer]USCH [employer] LOMB 02/09/2025 [id number] 0 / [id number] 35 / [id number] Clip Quick 2.8mm 230cm - [id number] Implanted:Qty: 1 on 04/23/2021 by Dallas Askew MD at ENDOSCOPY [facility] Colon [employer] 12/11/2023 HX-202UR .A / / 13K Cath Thermodilution 6fr - [id number] Implanted:Qty: 1 on 04/09/2024 by Jose Cruz Hill DO at CARDIAC LABS [facility] [place] [employer] [id number] 10/27/2025 [id number] / / [id number] Stent Xience Skypoint 3.25x15 - [id number] Implanted:Qty: 1 on 04/09/2024 by Jose Cruz Hill DO at CARDIAC LABS [facility] [place] [employer] LABS : VASCULAR DEVICES 01/04/2027 [id number] / / [id number] documented as of this encounter Procedures Procedure Name Priority Date/Time Associated Diagnosis Comments XR CHEST 1 VIEW Routine 11/10/2024 documented in this encounter Results * XR CHEST 1 VIEW (11/10/2024) Anatomical Region Laterality Modality Chest Other 11/10/2024 us Elmo Bautista DO RADIOLOGY (RAD GENERAL) Fi nal Result documented in this encounter Advance Directives [...] Power of Attor baldev? No Care Teams Center Director Lead Teacher Relationship Specialty Start Date End Date Chelle Vasquez DO 293 [facility] [place] [address] PCP - General Family Medicine 03/30/24 documented as of this encounter
--- OUTSIDE RECORDS SUMMARY | 2024-12-08 08:16 | External Medical Summary | Summary of Care ---
Author Name Unknown Organization [facility] Address [address] [facility] [address] Phone [phone] Care Team Providers Care Detonator Assembler Name Role Phone JyotsnaChelle montiel Clifton MUÑOZ Primary Care Provider [phone] Encounter Details Date Type Department Care Team (Late st Contact Info) Description 11/04/2024 Population Health External Data Unspecified Department Allergies Active Allergy Reactions Criticality Noted Date Comments Allopurinol Rash 04/17/2020 Pollen 04/22/2012 Seasonal allergies Molds & Smuts 07/01/2022 documented as of this encounter (statuses as of 11/04/2024) Medications Fexofenadine HCl 180 MG Oral Tablet [...] Respimat 2.5 MCG/ACT Inhalation Aerosol Solution (Tiotropium [place] Monohydrate) Inhale 2 Puffs by mouth in [...] in the evening. 180 mL 3 5 025 Active documented as of this encounter (statuses as of 11/04/2024) Active Problems Problem Noted Date Diagnosed Date [...] prox RCA 80% stenosis with placement of 3.12v40ku Xience Skypoint WEST, post-dilated with 3.5mm NC Balloon reducing stenosis to 0% with JAMES 3 flow Essential (primary) hypertension 12/08/2023 Hyperlipidemia 12/08/2023 Atherosclerosis of [place] co ronary artery without angina pectoris 12/08/2023 [...] as of this encounter (statuses as of 11/04/2024) Resolved Problems Problem Noted Date Diagnosed Date [...] as of this encounter (statuses as of 11/04/2024) Immunizations Name Administration Dates Next Due COVID-19 [...] Department Care Team (Latest Contact Info) Description 11/09/2024 3:00 PM EST Cardiac Studies Cardiac Studies, [facility] [place] [address] 11/12/2024 10:00 AM EST Office Visit Sleep Disorders [facility] 132 [facility] [phone] Libby Rosales CRNP 132 [facility] [place] [address] 11/24/2024 2:30 PM EST Office Visit Cardiology, [facility] 132 [facility] [place] [address] Tracey Cole CRNP 400 [facility] [place] [address] 12/14/2024 8:40 AM EST Office Visit Family Practice [address] [place] [address] 293 [facility] [place] [address] Chelle Vasquez DO 293 [place] [address] 01/03/2025 11:00 AM EDT Office Visit Cardiology, [facility] 132 [facility] [place] [address] Uriel Warren, DO [address] [place] [address] 02/11/2025 1:30 PM EDT Office Visit Dermatology [facility] 200 [facility] [place] [address] Juanito Browning MD 16 [place] [address] 02/17/2025 11:30 AM EDT Office Visit Cardiology, [facility] 132 [facility] [place] [address] Uriel Warren, DO 132 [facility] [place] [address] 02/17/2025 2:30 PM EDT Office Visit Hematology/Oncology [facility] 200 [facility] [place], [place] [phone] Leonarda Trevino CRNP [address] [place] [address] 03/23/2025 8:40 AM EDT Office Visit Pulmonary Medicine, [facility] 132 [facility] [place] [address] Marino Rodriguez MD [address] [place] [address] 05/04/2025 9:30 AM EDT Office Visit Pulmonary Medicine, [facility] 132 [facility] [place] [address] Marino Rodriguez MD [address] [place] [address] 05/06/2025 8:00 AM EDT Hospital Encounter ENDO [facility], Endoscopy Room [facility] [address] [place] [address] Dallas Askew MD [address] [place] [address] 05/06/2025 8:00 AM EDT - 05/06/2025 8:30 AM EDT Surgery ENDO [facility], Endoscopy Room [facility] [address] [place] [phone] Dallas Askew MD [address] [place] [address] COLONOSCOPY FLEXIBLE PROXIMAL DIAGNOSTIC Scheduled Procedures Name Priority Associated Diagnoses Date/Ti me COLONOSCOPY FLEXIBLE PROXIMAL DIAGNOSTIC Recall History of colon polyps Family history of colonic polyps 05/06/2025 8:00 AM EDT Health Maintenance Due Date Last Done Comments Cologuard 1999 Fecal Occult Blood Test 1999 Sigmoidoscopy 1999 Adult Wellness Visit 02/02/2020 Hepatitis C Screening 11/04/2024 Postpo angie from 02/02/1972 (Patient Declined After Education) HOME BP CUFF VALIDATION YEARLY 03/04/2025 03/04/2024 [...] 02/26/2021, 12/25/2020 Influenza Vaccine (FLU shot) Completed 06/17/2024, 07/25/2023, 07/26/2022, Additional history exists COVID-19 Vaccine Completed 08/21/2024, , 08/23/2022, Additional history exists HPV (Gardasil) Vaccine Aged Out No lo nger eligible based on patient's age to complete this topic MENINGOCOCCAL (MENACTRA/MENVEO) Aged Out No longer eligible based on patient's age to complete this topic documented as of this encounter Medical Devices Implanted Type Area Tattoo And Body Artist Device Identifier Shelf Expiration Date Model / Serial / Lot Marker Coronary [facility] - [id number] Implanted:Qty: 2 on 11/10/2015 by Jorge Colón MD at OR [facility] N/A: Heart [employer] [facility] / / [id number] Valve Heart Aortic Epic 25mm - [id number] - [id number] Implanted:Qty: 1 on 11/10/2015 by Jorge Colón MD at OR [facility] N/A: Heart ST LENNY : CARDIOVASCULAR 03/05/2019 [id number] 5-00 / [id number] 1 / Sut Steel 6 M654g - [id number] Implanted:Qty: 4 on 11/10/2015 by Jorge Colón MD at OR [facility] N/A: Chest JNJ : [employer] M654G / / Lens Intraoc 16.5 - [id number] - [id number] Implanted:Qty: 1 on 08/22/2020 by Pola Lozano MD at OR [facility] Right: Eye [employer]OM[employer] 02/09/2025 [id number] 5 / [id number] 39 / [id number] Lens Intraoc 16.0 - [id number] - [id number] Implanted:Qty: 1 on 09/05/2020 by Pola Lozano MD at OR [facility] Left: Eye [employer] LOMB 02/09/2025 [id number] 0 / [id number] / [id number] Clip Quick 2.8mm 230cm - [id number] Implanted:Qty: 1 on 04/23/2021 by Dallas Askew MD at ENDOSCOPY [facility] Colon [employer] 12/11/2023 HX-202UR .A / / 13K Cath Thermodilution 6fr - [id number] Implanted:Qty: 1 on 04/09/2024 by Jose Cruz Hill DO at CARDIAC LABS [facility] [employer] [id number] 10/27/2025 [id number] / / [id number] Stent Xience Skypoint 3.25x15 - [id number] Implanted:Qty: 1 on 04/09/2024 by Jose Cruz Hill DO at CARDIAC LABS [facility] [employer] : VASCULAR DEVICES 01/04/2027 [id number] / / [id number] documented as of this encounter Advance Directives [...] Power of Attor baldev? No Care Teams Detonator Assembler Relationship Specialty Start Date End Date Chelle Vasquez DO [address] [place] [address] PCP - General Family Medicine 03/30/24 documented as of this encounter
--- OUTSIDE RECORDS SUMMARY | 2024-12-08 08:16 | External Medical Summary | Summary of Care ---
Author Name Unknown Organization [facility] Address [address] [place] [address] Phone [phone] Care Team Providers Care [facility] Docent Name Role Phone Chelle Vasquez DO Primary Care Provider [phone] Reason for Referral * Precert (Diagnostic Medical) (Within 10 days (routine)) - Authorized Specialty Diagnoses / Procedures Referred By Katherine johns Referred To Contact Cardiac Studies Diagnoses Bilateral edema of lower extremity KUHN (dyspnea on exertion) Procedures ECHO, COMPLETE (2D), TRANS-THORACIC Chelle Vasquez DO [address] [place] [address] Phone: tel: fax: Referral ID Status Reason Start Date Expiration Date V isits Requested Visits Authorized [id number] Authorized Precert 11/03/2024 999 999 * Evaluate & Treat - Unlimited Visits (Within 30 days (routine)) - Authorized Specialty Diagnoses / Procedures Referred By Contac t Referred To Contact Sleep Medicine / Sleep Disorders Diagnoses Daytime somnolence Chelle Vasquez DO [address] [place] [address] Phone: tel: fax: Referral ID Status Reason Start Date Expiration Date Visits Requested Visits Authorized [id number] Authorized Specialty Services Required 11/03/2024 2 2 Question Answer GS CAD SLEEP MED ADULT REFERRAL Sleep Apnea Testing and Management Does the patient snore and/or gasp at night or has been told they stop breathing at night? Yes, document patient's symptoms in progress note Referral Priority Within 30 days (routine) Where should this appointment be scheduled? [facility] Reason for Visit * Reason Onset Date Comments Follow Up IV Therapy 11/03/2024 Encounter Details Date Type Department Care Team (Late st Contact Info) Description 11/03/2024 8:20 AM EST Office Visit Family Practice [address] [place] [address] [place] [id number] Chelle Vasquez DO [address] [place] [address] Wheeze*; Chronic pleural effusion; Bilateral edema of lower extremity; KUHN (dyspnea on exertion); Hodgkin lymphoma, unspecified Hodgkin lymphoma type, unspecified body region (HCC); Daytime somnolence; Chronic respiratory failure with hypoxia (HCC); Acute on chronic heart failure with preserved ejection fraction (HCC); Hypertensive heart disease with heart failure (HCC); Atrial fibrillation, unspecified type (HCC); Essential (primary) hypertension; Atherosclerosis of afognak coronary artery of afognak heart without angina pectoris; Dyslipidemia, goal LDL below 70; Moderate persistent asthma without complication Allergies Active Allergy Reactions Criticality Noted Date Comments Allopurinol Rash 04/17/2020 Pollen 04/22/2012 Seasonal allergies Molds & Smuts 07/01/2022 documented as of this encounter (statuses as of 11/03/2024) Medications Fexofenadine HCl 180 MG Oral Tablet [...] morning. 100 Tablet 3 06/08/20 24 Active Lisinopril 10 MG Oral Tablet (Prinivil) Take 0.5 Tablets by mouth in the morning. 90 Tablet 3 06/29/20 24 Active Nitroglycerin 0.4 MG Sublingual Tablet Sublingual (Nitrostat) Place 1 Tablet under the tongue every 5 minutes as needed for Pain, Chest. up to 3 doses in 15 minutes 25 Tablet 11 4 11:02 AM EDT 07/22/20 24 Active Atorvastatin Calcium 40 MG Oral Tablet (Lipitor) Take 1 Tablet by mouth in the morning. 100 Tablet 3 5 1:36 PM EST 07/22/20 24 Active Fluticasone-Salm eterol 115-21 MCG/ACT Inhalation Aerosol (Advair HFA) Inhale 2 Puffs by mouth in the morning and 2 Puffs before bedtime. 12 g 12 4 5:38 PM EST 07/26/20 24 Active Additional Information Patient not taking.Reported on 11/03/2024 Fluticasone-Salm eterol 115-21 MCG/ACT Inhalation Aerosol (Advair HFA) Inhale 2 Puffs by mouth in the morning and 2 Puffs before bedtime. 12 g 12 07/26/20 24 Active Additional Information Patient not taking.Reported on 11/03/2024 Spiriva Respimat 2.5 MCG/ACT Inhalation Aerosol Solution (Tiotropium Strong Monohydrate) Inhale 2 Puffs by mouth in the morning. 4 g 10 4 5:38 PM EST 09/14/20 24 Active HumidifierIndica tions:Hodgkin lymphoma, [...] for Cough or Wheezing. 8.5 g 3 11/03/19 25 Active Albuterol Sulfate (2.5 MG/3ML) 0.083% Inhalation Nebulization Solution (Proventil)Indic ations:Wheeze Inhale 1 Vial via nebulizer every 4 hours as needed for Wheezing. 180 mL 5 11/03/19 25 Active Ventolin HFA 108 (90 Base) MCG/ACT Inhalation Aerosol Solution Inhale 2 Puffs by mouth as needed for Cough or Wheezing. 18 g 3 06/29/20 24 025 Discontin ued(Refil l) Hospital, Clinic, or Other Facility Administered Medication Ordered Dose Route Frequency Start Date End Date Status Furosemide (Lasix) inj 80 mgIndications:Bilateral edema of lower extremity,KUHN (dyspnea on exertion) 80 mg IV PUSH ONCE 11/03/2024 11/03/2024 Ended documented as of this encounter (statuses as of 11/03/2024) Active Problems Problem Noted Date Diagnosed Date [...] prox RCA 80% stenosis with placement of 3.03r18cr Xience Skypoint WEST, post-dilated with 3.5mm NC Balloon reducing stenosis to 0% with JAMES 3 flow Essential (primary) hypertension 12/08/2023 Hyperlipidemia 12/08/2023 Atherosclerosis of afognak co ronary artery without angina pectoris 12/08/2023 [...] as of this encounter (statuses as of 11/03/2024) Resolved Problems Problem Noted Date Diagnosed Date [...] as of this encounter (statuses as of 11/03/2024) Immunizations Name Administration Dates Next Due COVID-19 [...] Sign Reading Time Taken Comments Blood Pressure 122/74 11/03/2024 9:00 AM EST Pulse 90 11/03/2024 9:00 AM EST Temperature 35.9 C (96.7 F) 11/03/2024 9:00 AM ES T Respiratory Rate 14 11/03/2024 9:00 AM EST Oxygen Saturation 98% 11/03/2024 9:00 AM EST Inhaled Oxygen Concentration - - Weight 104.1 kg (229 lb 6.4 oz) 11/03/2024 9:00 AM EST Height 170.2 cm (5' 7") 11/03/2024 9:00 AM EST Body Mass Index 35.93 11/03/2024 9:00 AM EST documented in this encounter Functional [...] documented in this encounter Progress Notes * Valerie Vargas LPN - 11/03/2024 9:44 AM EST IV ADMINISTRATION DOCUMENTATION After identifying patient by name and date of , IV catheter was inserted into Left AnticubitalVein with a positive blood return noted. Infusion start time 0925 AM IV solution no fluids was hung and infused via at Dr Vasquez pushed IV lasix per Provider order. Infusion stop time 0945AM. IV Heri: Discontinued Total volume infused was Total time of infusion was No fluid was given. Educated patient on signs and symptoms to report. Instructed to call clinic with any problems or concerns regarding IV therapy. See Documentation Flowsheet for additional information. Valerie Vargas LPN IV lock was placed at 0925 one attempt, left anticubital Tolerated well. Secured site and flushed with sterile water. Dr Vasquez pushed IV med and then flushed with sterile water. This nurse removed IV heplock tolerated well. * Chelle Vasquez DO - 11/03/2024 9:03 AM EST Images from the original note were not included. Subjective Michael Hughes is a 69 year old male that presents for Follow Up History of Present Illness The patient, with a history of heart disease and lung effusion, presents with bilateral lower extremity edema, more pronounced on the left side. He reports that despite doubling his dose of torasemide, the swelling persisted, particularly in the left leg. The patient also noted swelling in the upper thigh. He had concerns about possible lymphedema due to a history of Hodgkin's disease and multiple lymph node interventions. The patient also reports shortness of breath, which worsens with exertion such as climbing stairs or walking short distances. He describes a sensation of 'drowning' when lying flat, which improves with elevation and use of a nebulizer. He also reports a period where he felt he could not inhale fully, describing it as if his chest would not expand. The patient has been using a nebulizer, typically in the mornings, and reports improvement in symptoms after use. He also reports previous use of Advair, which improved his symptoms but was discontinued due to the development of oral thrush. The patient also reported experiencing what he believed to be allergic symptoms over the holiday period, including eye irritation and facial swelling. He also noted worsening of his breathing during this time. The patient has been managing his symptoms with elevation of his legs at night, use of a nebulizer,and a humidifier in his bedroom. Despite these interventions, he still reports waking up a couple of times at night but is able to return to sleep easily. Review of Systems Constitutional: Negative for chills, fatigue, fever and unexpected weight change. Respiratory: Positive for chest tightness, shortness of breath and wheezing. Negative for cough. Cardiovascular: Positive for leg swelling. Negative for chest pain and palpitations. Gastrointestinal: Negative for abdominal pain, constipation, diarrhea, nausea and vomiting. Musculoskeletal: Negative for arthralgias, gait problem and joint swelling. Skin: Negative for color change, pallor and rash. Objective Vitals: 11/03/24 0900 Temp: 96.7 F (35.9 C) Pulse: 90 Resp: 14 SpO2: 98% BP: 122/74 BMI: 35.92 Wt Readings from Last 3 Encounters: 11/03/24 229 lb 6.4 oz (104.1 kg) 09/27/24 226 lb 6.4 oz (102.7 kg) 09/17/24 225 lb 3.2 oz (102.2 kg) Physical Exam Physical Exam Constitutional: General: [...] range of motion. Right lower leg: Edema (+2 pitting edema) present. Left lower leg: Edema (+2-3 pitting edema) present. Skin: General: Skin is warm and dry. Coloration: Skin is not pale. Findings: No erythema or rash. Neurological: Mental Status: He is alert and oriented to person, place, and time. I have reviewed the following results: Results LABS Creatinine: 1.4 (11/03/2024) RADIOLOGY Chest x-ray: Moderate effusion, no change in size, cannot exclude superimposed infection (11/03/2024) CBC and BMP Assessment and Plan Assessment & Plan Bilateral Lower Extremity Edema More severe in the left leg. Improved with increased Torsemide. Possible fluid overload. Weight increased by 12-13 pounds since July. No evidence of heart failure on chest x-ray. -Administer IV Lasix today. -Will consider double dose of Torsemide for a few more days pending response to lasix and his pulmonary visit today. -Repeat echocardiogram. Chronic Pleural Effusion Moderate effusion on chest x-ray. No change in size. No evidence of superimposed infection. -No change in management. Shortness of Breath Worsens with exertion and when lying flat. Improved with nebulizer use. Possible fluid overload or pleural effusion contributing. -Administer IV Lasix today. -Repeat echocardiogram. -Discuss with mobile practice lead regarding possible inhaled steroid use. Message sent to Dr. Rodriguez. Sleep Disturbance Improved with use of humidifier, wedge, and separate room. -Resubmit referral for sleep study. (R06.2) Wheeze (primary encounter diagnosis) Plan: Ventolin HFA 108 (90 Base) MCG/ACT Inhalation Aerosol Solution, Albuterol Sulfate (2.5 MG/3ML) 0.083% Inhalation Nebulization Solution (Proventil) Refills sent on albuterol. (J90) Chronic pleural effusion Plan: As above. (R60.0) Bilateral edema of lower extremity Plan: SALINE HERI, Furosemide (Lasix) inj 80 mg, SALINE HERI, DISCONTINUE, ECHO, COMPLETE (2D), TRANS-THORACIC As above. (R06.09) KUHN (dyspnea on exertion) Plan: SALINE HERI, Furosemide (Lasix) inj 80 mg, SALINE HERI, DISCONTINUE, ECHO, COMPLETE (2D), TRANS-THORACIC As above. (C81.90) Hodgkin lymphoma, unspecified Hodgkin lymphoma type, unspecified body region (HCC) Plan: Pt had recent PET with no change. Following with oncology. (R40.0) Daytime somnolence Plan: SLEEP MEDICINE REFERRAL OP Pt will see sleep medicine. (J96.11) Chronic respiratory failure with hypoxia (HCC) (I50.33) Acute on chronic heart failure with preserved ejection fraction (HCC) (I11.0) Hypertensive heart disease with heart failure (HCC) (I48.91) Atrial fibrillation, unspecified type (HCC) Plan: As above. (I10) Essential (primary) hypertension Plan: BP controlled. No changes. (I25.10) Atherosclerosis of afogn[place] coronary artery of afognak heart without angina pectoris Plan: as above. (E78.5) Dyslipidemia, goal LDL below 70 Plan: pt will remain on atorvastatin. (J45.40) Moderate persistent asthma without complication Plan: Pt not adequately treated as he feels he is having an issue with the Advair. He notes Advair did make a difference. Message sent to Dr. Rodriguez. Follow-up: as scheduled, phone call tomorrow Wrap-Up Time: I spent a total of 40-54 minutes (exact time 46 mins) on the date of service in preparation, delivery, and documentation of the care provided to Michael Hughes excluding any time spent in the performance of separately billed services. Text in this note was generated using an ambient documentation service. I discussed the use of a device to record and summarize our discussion today. All persons present during the encounter consented to its use. documented in this encounter Nursing Notes * Rea Benitez LPN - 11/03/2024 8:59 AM EST Patient here for follow up visit. Reports increased edema in legs. Easily fatigues with activity and gets short of breath. Difficulty lying flat d/t breathing. documented in this encounter Plan of Treatment Upcoming Encounters Date Type Department Care Team (Latest Contact Info) Description 11/03/2024 10:40 AM EST Office Visit Pulmonary Medicine, [facility] [address] [place] [address] Marino Rodriguez MD Formerly named [facility] [address] [facility] [place] [id number] 11/04/2024 10:00 AM EST Nurse Only Family Practice [address] [place] [address] [address] [facility] [phone] [place] Nurse F[facility] Pr[facility] [address] [place] [address] [address] [place] [address] 11/12/2024 10:00 AM EST Office Visit [facility] [address] [facility] [place] [phone] Lib[facility] Rosales CRNP [address] [facility] [address] 11/24/2024 2:30 PM EST Office Visit Cardiology, [facility] [address] [place] [address] Tracey Cole CRNP [address] [facility] [place] [address] 12/14/2024 8:40 AM EST Office Visit Family Practice [address] [place] [address] [address] [place] [address] Chelle Vasquez, DO [address] [place] [address] 01/03/2025 11:00 AM EDT Office Visit Cardiology, [facility] [address] [place] [address] Uriel Warren, DO [address] [facility] [address] 02/11/2025 1:30 PM EDT Office Visit Dermatology [facility] [address] [place] [address] Juanito Browning MD [address] [facility] [place] [address] 02/17/2025 11:30 AM EDT Office Visit [facility], [facility] [address] [facility] [place] [address] Uriel Warren DO [address] [place] [address] 02/17/2025 2:30 PM EDT Office Visit Hematology/Oncology [facility] [address] [facility], [place] [phone] Leonarda Trevino CRNP [address] [facility] [place] [address] 03/23/2025 8:40 AM EDT Office Visit Pulmonary Medicine, [facility] [address] [place] [address] Marino Rodriguez MD [address] [facility] [address] 05/06/2025 8:00 AM EDT Hospital Encounter ENDO OSSC, Endoscopy Room [facility] [address] [place] [address] Dallas Askew MD [address] [place] [address] 05/06/2025 8:00 AM EDT - 05/06/2025 8:30 AM EDT Surgery ENDO OSS, Endoscopy Room [facility] [address] [place] [phone] Dallas Askew MD [address] [place] [address] COLONOSCOPY FLEXIBLE PROXIMAL DIAGNOSTIC Scheduled Orders Name Type Priority Associated Diagnoses Orde r Schedule SALINE HERI Procedures Routine Bilateral edema of lower extremity KUHN (dyspnea on exertion) Ordered: 11/03/2024 SALINE HREI, DISCONTINUE Procedures Routine Bilateral edema of lower extremity KUHN (dyspnea on exertion) Ordered: 11/03/2024 ECHO, COMPLETE (2D), TRANS-THORACIC Echocardiology Routine Bilateral edema of lower extremity KUHN (dyspnea on exertion) Expected: 11/03/2024, Expires: 12/04/2026 Scheduled Procedures Name Priority Associated Diagnoses Date/Ti me COLONOSCOPY FLEXIBLE PROXIMAL DIAGNOSTIC Recall History of colon polyps Family history of colonic polyps 05/06/2025 8:00 AM EDT Scheduled Referrals Name Type Priority Associated Diagnoses Orde r Schedule SLEEP MEDICINE REFERRAL OP Referral Within 30 days (routine) Daytime somnolence Ordered: 11/03/2024 Health Maintenance Due Date Last Done Comments [...] this encounter Medical Devices Implanted Type Area Corporate Intern Device Identifier Shelf Expiration Date Model / Serial / Lot Marker Coronary Am-Sd - [id number] Implanted:Qty: 2 on 11/10/2015 by Jorge Colón MD at OR [facility] N/A: Heart [facility] / / [id number] Valve Heart Aortic Epic 25mm - [id number] - [id number] Implanted:Qty: 1 on 11/10/2015 by Jorge Colón MD at OR [facility] N/A: Heart ST L[facility]NY : CARDIOVASCULAR 03/05/2019 [id number] / [id number] / Sut Steel 6 M654g - [id number] Implanted:Qty: 4 on 11/10/2015 by Jorge Colón MD at OR [facility] N/A: Chest JNJ : [employer] M654G / / Lens Intraoc 16.5 - [id number] - [id number] Implanted:Qty: 1 on 08/22/2020 by Pola Lozano MD at OR [facility] Right: Eye [employer] 02/09/2025 [id number] / [id number] / [id number] Lens Intraoc 16.0 - [id number] - [id number] Implanted:Qty: 1 on 09/05/2020 by Pola Lozano MD at OR [facility] Left: Eye [employer]OMB 02/09/2025 [id number] / [id number] / [id number] Clip Quick 2.8mm 230cm - [id number] Implanted:Qty: 1 on 04/23/2021 by Dallas Askew MD at ENDOSCOPY [facility] Colon [employer] 12/11/2023 [id number] / / [id number] Cath Thermodilution 6fr - [id number] Implanted:Qty: 1 on 04/09/2024 by Jose Cruz Hill DO at CARDIAC LABS [facility] [employer] [id number] 10/27/2025 [id number] / / [id number] Stent Xience Skypoint 3.25x15 - [id number] Implanted:Qty: 1 on 04/09/2024 by Jose Cruz Hill DO at CARDIAC LABS [facility] [employer]STELL[employer] LABS : VASCULAR DEVICES 01/04/2027 [id number] / / [id number] documented as of this encounter Visit Diagnoses Diagnosis Wheeze- Primary Wheezing Chronic pleural effusion Bilateral edema of lower extremity Edema KUHN (dyspnea on exertion) Other dyspnea and respiratory abnormality Hodgkin lymphoma, unspecified Hodgkin lymphoma type, unspecified body region (HCC) Daytime somnolence Hypersomnia, unspecified Chronic respiratory failure with hypoxia (HCC) Chronic respiratory failure Acute on chronic heart failure with preserved ejection fraction (HCC) Hypertensive heart disease with heart failure (HCC) Unspecified hypertensive heart disease with heart failure Atrial fibrillation, unspecified type (HCC) Essential (primary) hypertension Unspecified essential hypertension Atherosclerosis of afogn[place] coronary artery of afognak heart without angina pectoris Dyslipidemia, goal LDL below 70 Other and unspecified hyperlipidemia Moderate persistent asthma without complication Unspecified asthma History of colon polyps Personal history of colonic polyps Family history of colonic polyps documented in this encounter Administered Medications Inactive Administered Medications - up to 3 most recent administrations Medication Order MAR Action Action Date Dose Rate Site Furosemide (Lasix) inj 80 mg 80 mg, IV Push, ONCE, On Fri11/03/24 at 1030, For 1 doseIndications:Bilateral edema of lower extremity,KUHN (dyspnea on exertion) Given 11/03/2024 9:57 AM EST 80 mg documented in this encounter Advance Directives * [...] Power of Attor baldev? No Care Teams [employer] [facility] Docent Relationship Specialty Start Date End Date Chelle Vasquez DO [address] [place] [address] PCP - General Family Medicine 03/30/24 documented as of this encounter
--- OUTSIDE RECORDS SUMMARY | 2024-12-08 08:16 | External Medical Summary | Summary of Care ---
Author Name Unknown Organization [facility] Address [address] [facility] [place] [address] Phone [phone] Care Team Providers Care Concrete Finishing Machine Operator Name Role Phone Chelle Vasquez DO Primary Care Provider [phone] Reason for Visit * Reason Onset Date Comments Nurse Documentation 11/04/202411/04 Encounter Details Date Type Department Care Team (Late st Contact Info) Description 11/04/2024 10:00 AM EST Scheduled Telephone Family Practice [address] [facility] [address] [place] [address] College, Nurse [facility] Prac [address] [address] Allergies Active Allergy Reactions Criticality Noted Date [...] and 2 Puffs before bedtime. 12 g 4 Active Additional Information Patient not taking.Reported on 11/03/2024 Spiriva Respimat 2.5 MCG/ACT Inhalation Aerosol Solution (Tiotropium [place] Monohydrate) Inhale 2 Puffs by mouth in [...] prox RCA 80% stenosis with placement of 3.95t29pa Xience Skypoint WEST, post-dilated with 3.5mm NC Balloon reducing stenosis to 0% with JAMES 3 flow Essential (primary) hypertension 12/08/2023 Hyperlipidemia 12/08/2023 Atherosclerosis of [place] ronary artery without angina pectoris 12/08/2023 [...] Telephone Encounter - Rea Benitez LPN - 11/04/2024 1:14 PM EST Call placed to patient and relayed information from Dr. Vasquez. Pt acknowledged understanding andstates he will comply. * Telephone Encounter - Chelle Vasquez DO - 11/04/2024 12:14 PM EST Elevated BNP can be associated with some fluid overload. We treated with lasix. I would like him todouble his Demadex today and tomorrow. * Telephone Encounter - Rea Benitez LPN - 11/04/2024 10:17 AM EST Nurse phone call placed to patient. Pt reports he slept well last night. Swelling in both legs has improved. States they are looking more normal to him - not quite 100% but much better. No shortness of breath - breathing ok. States Pulm feels it is asthma and added Budesonide neb - waiting to pickup driver from pharmacy. Urinating well. Sleep study and Echo are ordered. Pt is asking about elevated BNP lab results. documented in this encounter Plan of Treatment Upcoming Encounters Date Type Department Care Team (Latest Contact Info) Description 11/09/2024 3:00 PM EST Cardiac Studies Cardiac Studies, [facility] [address] [facility] [place] [address] 11/12/2024 10:00 AM EST Office Visit Sleep Disorders Ctr [facility] [address] [facility] [place] [phone] Libby Rosales CRNP 132 [facility] [place] [address] 11/24/2024 2:30 PM EST Office Visit Cardiology, [facility] [address] [facility] [place] [address] Tracey Cole CRNP [address] [facility] [place] [address] 12/14/2024 8:40 AM EST Office Visit Family Practice [address] [place] [address], [place] 293 [place] [address] Chelle Vasquez, DO 293 [place] [address] 01/03/2025 11:00 AM EDT Office Visit Cardiology, [facility] [address] [facility] [place] [address] Uriel Warren, DO [address] [facility] [place] [address] 02/11/2025 1:30 PM EDT Office Visit Dermatology [facility] [address] [place] [address] Juanito Browning MD 16 [place] [address] 02/17/2025 11:30 AM EDT Office Visit Cardiology, [facility] [address] [facility] [place] [address] Uriel Warren O, DO [address] [facility] [place] [address] 02/17/2025 2:30 PM EDT Office Visit Hematology/Oncology [facility] [address] [place], [place] [phone] Leonarda Trevino CRNP [address] [place], [place] [address] [address] 03/23/2025 8:40 AM EDT Office Visit Pulmonary Medicine, [facility] [address] [facility] [place] [address] Marino Rodriguez MD [address] [place] [address] 05/04/2025 9:30 AM EDT Office Visit Pulmonary Medicine, [facility] [address] [facility] [place] [address] Marino Rodriguez MD [address] [place] [address] 05/06/2025 8:00 AM EDT Hospital Encounter ENDO [facility], Endoscopy Room [facility] [address] [facility] [place] [phone] Dallas Askew MD 132 [facility] [place] [address] 05/06/2025 8:00 AM EDT - 05/06/2025 8:30 AM EDT Surgery ENDO [facility], Endoscopy Room [facility] [address] [place] [phone] Dallas Askew MD [address] [place] [address] COLONOSCOPY FLEXIBLE PROXIMAL DIAGNOSTIC Scheduled Procedures Name [...] this encounter Medical Devices Implanted Type Area Hyster Machine Operator Device Identifier Shelf Expiration Date Model / Serial / Lot Marker Coronary [facility] - [id number] Implanted:Qty: 2 on 11/10/2015 by Jorge Colón MD at OR [facility] N/A: Heart [employer] [facility] / / [id number] Valve Heart Aortic Epic 25mm - [id number] - [id number] Implanted:Qty: 1 on 11/10/2015 by Jorge Colón MD at OR [facility] N/A: Heart [facility] : CARDIOVASCULAR 03/05/2019 [id number] 5-00 / [id number] / Sut Steel 6 M654g - [id number] Implanted:Qty: 4 on 11/10/2015 by Jorge Colón MD at OR [facility] N/A: Chest JNJ : [employer] [id number] / / Lens Intraoc 16.5 - [id number] - [id number] Implanted:Qty: 1 on 08/22/2020 by Pola Lozano MD at OR [facility] Right: Eye [employer] 02/09/2025 [id number] / [id number] / [id number] Lens Intraoc 16.0 - [id number] - [id number] Implanted:Qty: 1 on 09/05/2020 by Pola Lozano MD at OR [facility] Left: Eye [employer] 02/09/2025 [id number] 0 / [id number] / [id number] Clip Quick 2.8mm 230cm - [id number] Implanted:Qty: 1 on 04/23/2021 by Dallas Askew MD at ENDOSCOPY [facility] [employer] 12/11/2023 [id number] .[id number] / / 13K Cath Thermodilution 6fr - [id number] Implanted:Qty: 1 on 04/09/2024 by Jose Cruz Hill DO at [facility] [employer] [id number] 10/27/2025 [id number] / / [id number] Stent Xience Skypoint 3.25x15 - [id number] Implanted:Qty: 1 on 04/09/2024 by Jose Cruz Hill DO at CARDIAC LABS [facility] : VASCULAR DEVICES 01/04/2027 [id number] / / [id number] documented as of this encounter Advance Directives [...] Power of Attor baldev? No Care Teams Concrete Finishing Machine Operator Relationship Specialty Start Date End Date Chelle Vasquez DO [address] [place] [address] PCP - General Family Medicine 03/30/24 documented as of this encounter
--- OUTSIDE RECORDS SUMMARY | 2024-12-08 08:16 | External Medical Summary | Summary of Care ---
Author Name Unknown Organization [facility] Address [address] [facility] [place] [address] Phone [phone] Care Team Providers Care Principal Solutions Architect Name Role Phone Chelle Vasquez DO Primary Care Provider Reason for Visit * Reason Comments Follow Up Return pulm. 6 weeks . Moderate persistent asthma. Fluid retention. Hard time taking deep breath. Encounter Details Date Type Department Care Team (Late st Contact Info) Description 11/03/2024 10:40 AM EST Office Visit Pulmonary Medicine, [facility] [address] [place] [address] Marino Rodriguez MD [address] [facility] [place] [address] Moderate persistent asthma without complication*; S/P AVR (aortic valve replacement) Allergies Active Allergy Reactions Criticality Noted Date [...] Respimat 2.5 MCG/ACT Inhalation Aerosol Solution (Tiotropium [place] Monohydrate) Inhale 2 Puffs by mouth in [...] prox RCA 80% stenosis with placement of 3.97q65wl Xience Skypoint WEST, post-dilated with 3.5mm NC Balloon reducing stenosis to 0% with JAMES 3 flow Essential (primary) hypertension 12/08/2023 Hyperlipidemia 12/08/2023 Atherosclerosis of [place] co ronary artery without angina pectoris 12/08/2023 [...] Sign Reading Time Taken Comments Blood Pressure 122/80 11/03/2024 10:47 AM EST Pulse 99 11/03/2024 10:47 AM EST Temperature 35.7 C (96.2 F) 11/03/2024 10:[address] Respiratory Rate 16 11/03/2024 10:47 AM EST Oxygen Saturation 93% 11/03/2024 10:48 AM EST ra-amb Inhaled Oxygen Concentration - - Weight 103 kg (227 lb) 11/03/2024 10:47 AM EST Height 170.2 cm (5' 7") 11/03/2024 10:47 AM EST Body Mass Index 35.55 11/03/2024 10:47 AM EST documented in this encounter Functional [...] documented in this encounter Progress Notes * Marino Rodriguez MD - 11/03/2024 10:48 AM EST 11/03/2024 Pulmonary Medicine, [facility] [address] [place] [id number] Michael Hughes 1955 male 69 year old Attending Physician Documentation: 69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 3 + pitting LE Edema Moderate persistent Asthma with recent flare-up Allergic Asthma Eosinophilic asthma Hx of Post viral URI Plan: C/w Spiriva + Albuterol Budesonide neb Rx added Allergen screening profile reviewed, Avoidance precautions discussed Rt pleural thickening and loculation is unchanged compared to 03/2024. Thoracentesis is Not recommended Agree with optimized diuresis based on overall volume assessment. Role of Biologic Therapy was discussed again. , ie, Fasenra injectable therapy. Pt will research and reach out to pulmonary team Role of prednisone therapy was discussed. Pt will update when decided to do Prednisone. C/w 2 LPM oxygen q.h.s. Maintain physical activity status Call with change in respiratory symptoms status F/u 6 months Follow Up: Return in about 6 months (around 05/03/2025) for Clinic Visit. | For: Clinic Visit | Check-out note: Moderate persistent Asthma with recent flare-up Allergic Asthma Eosinophilic asthma Hx of Post viral URI Plan: C/w Spiriva + Albuterol Budesonide neb Rx added C/w Advair Allergen screening profile reviewed, Avoidance precautions discussed Rt pleural thickening and loculation is unchanged compared to 03/2024. Thoracentesis is Not recommended Agree with optimized diuresis based on overall volume assessment. Role of Biologic Therapy was discussed again. , ie, Fasenra injectable therapy. Pt wi Follow Up: Return in about 6 months (around 05/03/2025) for Clinic Visit. | For: Clinic Visit | Check-out note: ll research and reach out to pulmonary team Role of prednisone therapy was discussed. Pt will update when decided to do Prednisone. C/w 2 LPM oxygen q.h.s. Maintain physical activity status Call with change in respiratory symptoms status F/u 6 months I spent a total of 30-39 minutes (exact time 35 mins) on the date of service in preparation, delivery, and documentation of the care provided to Michael Hughes excluding any time spent in the performance of separately billed services or time spent by another provider/QHP. Marino Rodriguez MD Data review: Following reports, and data as outlined below was personally reviewed and interpreted by myself. Allergen screening profile is showing significant levels 3 and level 2 reactivity to multiple environmental allergen triggers including dust mites, [place] and Ruben grass, oak, walnut, cottonwood,white cheyenne, and multiple additional area grasses and shrubs as noted. IgE levels are also significantly elevated at 274, normal less than 214 units. CBC 07/26/2024: Eosinophil count is elevated at 8%, normal less than 6%. Was recently up to 11%, suggestive of allergen related reactivity. Component Latest Ref Rn 06/30/2024 07/26/2024 Absolute Eosinophils 0.00 - 0.70 K/uL 0.76 (H) 0.68 Component Latest Ref Rn 06/30/2024 07/26/2024 Eosinophils % 0.0 - 6.0 % 11.1 (H) 8.4 (H) Legend: (H) High Component Latest Ref Rn 07/26/2024 IgE <=214.0 kU/L 274.0 (H) Legend: (H) High Component Latest Ref Rn 07/26/2024 Mite Pteronyssinus IgE <0.10 kUa/L 6.54 ! (Class 3) Mite Farinae IgE <0.10 kUa/L 9.08 ! (Class 3) Component Latest Ref Rng 07/26/2024 Bermuda Grass IgE <0.10 kUa/L 5.44 ! (Class 3) Ruben Grass IgE <0.10 kUa/L 11.60 ! (Class 3) Component Latest Ref Rn 07/26/2024 [place]y Maple IgE <0.10 kUa/L 3.51 ! (Class 3) Birch IgE <0.10 kUa/L 0.99 ! (Class 2) [place] IgE <0.10 kUa/L 3.67 ! (Class 3) Elm IgE <0.10 kUa/L 3.77 ! (Class 3) [place] Tree IgE <0.10 kUa/L 3.32 ! (Class 2) [place]by IgE <0.10 kUa/L 2.38 ! (Class 2) White Cheyenne IgE <0.10 kUa/L 4.07 ! (Class 3) [place] IgE <0.10 kUa/L 2.42 ! (Class 2) Common Ragweed IgE <0.10 kUa/L 3.64 ! (Class 3) Mugwort IgE <0.10 kUa/L 2.53 ! (Class 2) [place] Plantain IgE <0.10 kUa/L 2.93 ! (Class 2) Quintanilla's Quarter IgE <0.10 kUa/L 3.58 ! (Class 3) Cocklebur IgE <0.10 kUa/L 3.84 ! (Class 3) Pigweed IgE <0.10 kUa/L 3.43 ! (Class 2) Sheep [place] IgE <0.10 kUa/L 4.08 ! (Class 3) Legend: ! (Class 3) Class 3: High Level Allergen Specific IgE ! (Class 2) Class 2: Moderate Level Allergen Specific IgE History of flare-up of respiratory symptoms following visits to [facility] [place] 2023 Increased wheezing, cough, shortness of breath. Had Completed prednisone taper with partial improvement Chronic Rt Pleural Effusion (visible since 11/2015), dry tap 03/2024 by IR Dilated esophagus on CT chest (Chronic) Moderate restrictive ventilatory pattern noted on PFTs Subjective CC: Chief Complaint Patient presents with Follow Up Return pulm. 6 weeks. Moderate persistent asthma. Fluid retention. Hard time taking deep breath. HPI: Nursing Notes: Samia Mccurdy LPN 11/03/24 1052 Signed Chief Complaint Patient presents with Follow Up Return pulm. 6 weeks. Moderate persistent asthma. Fluid retention. Hard time taking deep breath. Interm History/Respiratory Symptoms Cough: yes- no phlegm Hemoptysis: no Sinus Symptoms: no Hospitalizations: no ED Trips: no Triggers: cold weather Nocturnal: sleeps with head elevated CPAP/BiPAP/O2: O2 2L at night DME Supplier: [employer] Flu Vaccine: 2023 Pneumovax: 2020 Prevnar: 2019 COVID 19: x7. MMRC Dyspnea Scale = 4 (I am too breathless to leave the house or I am breathless when dressing) Objective Filed Vitals: 11/03/24 1047 11/03/24 1048 BP: 122/80 Pulse: 99 Resp: 16 Temp: 35.7 C (96.2 F) TempSrc: Tympanic SpO2: 90% 93% Weight: 103 kg (227 lb) Height: 1.702 m (5' 7") Exam: Const: No signs of acute distress present. Head/Face: Normal on inspection. Eyes: Conjunctivae clear. Pupils equal round and reactive to light. ENMT: Oropharynx: No erythema, exudate or masses. Posterior pharynx is normal. Neck: Supple and symmetric. Resp: Respiratory examination as outlined above CV: Rate is regular. Rhythm is regular. No heart murmur appreciated. Extremities: No edema of the lower limbs bilaterally. Skin: Skin is warm and dry. Neuro: Coordination normal. No involuntary movement. Psych: Patient's attitude is cooperative. Mood is normal. Affect is normal. Tests reviewed with the patient: XR CHEST 2 VIEWS Result Date: 11/03/2024 IMPRESSION: Persistent moderate right pleural effusion with associated atelectasis. Superimposed infection cannot be excluded. VASC DUPLEX VENOUS LE BILAT Result Date: 10/29/2024 IMPRESSION 1. No deep venous thrombosis. 2. Mild edema left lower leg. PET CT SKULL BASE TO MID-THIGH FDG Result Date: 07/20/2024 IMPRESSION No FDG-avid disease. Available Radiologic data was reviewed by me in PACS. The images were shown to the patient and findings were discussed with the patient. HOME MEDICATIONS: Albuterol Sulfate (2.5 MG/3ML) 0.083% Inhalation Nebulization Solution (Proventil) Budesonide 1 MG/2ML Inhalation Suspension (Pulmicort) Ventolin HFA 108 (90 Base) MCG/ACT Inhalation Aerosol Solution Probenecid 500 MG Oral Tablet (Benemid) Compressor Nebulizer Humidifier Spiriva Respimat 2.5 MCG/ACT Inhalation Aerosol Solution (Tiotropium [place] Monohydrate) Fluticasone-Salmeterol 115-21 MCG/ACT Inhalation Aerosol (Advair HFA) Atorvastatin Calcium 40 MG Oral Tablet (Lipitor) Nitroglycerin 0.4 MG Sublingual Tablet Sublingual (Nitrostat) Lisinopril 10 MG Oral Tablet (Prinivil) Ezetimibe 10 MG Oral Tablet (Zetia) Omeprazole 20 MG Oral Capsule Delayed Release (PriLOSEC) Amoxicillin 500 MG Oral Capsule (Amoxil) Aspirin 81 MG Oral Tablet Chewable Clopidogrel Bisulfate 75 MG Oral Tablet (pLAVix) Torsemide 20 MG Oral Tablet (Demadex) Carvedilol 3.125 MG Oral Tablet (Coreg) Potassium Chloride ER 10 MEQ Oral Tablet Extended Release traMADol HCl 50 MG Oral Tablet (Ultram) Vitamin D 50 MCG (1999 UT) Oral Capsule Fexofenadine HCl 180 MG Oral Tablet Fluticasone-Salmeterol 115-21 MCG/ACT Inhalation Aerosol (Advair HFA) No current facility-administered medications for this visit. ROS: No reported history of Hemoptysis, Hematemesis, Melena No reported history of Dysuria, Hematuria, Flank Pain No reported history of chronic headache, seizures No reported history of Fall or trauma . No reported history of recent change in weight or appetite. Past Medical History: Diagnosis Date Actinic keratosis 11/09/2013 Aortic stenosis Basal cell carcinoma of skin of trunk, except scrotum 06/23/2013 Gout History of basal cell carcinoma 04/22/2012 Hx of BCC left post auricular sulcus - 2009 Hx of BCC left ear - 2009 Hx of BCC right upper back - 2011 Hx of BCC left lateral neck - 2011 Hodgkin lymphoma (HCC) 1975, 1976, 1982 Past Surgical History: Procedure Laterality Date COLONOSCOPY, DIAGNOSTIC (RECTUM) 07/01/2017 benign polyp, fair prep, repeat 3 yrs/COLONOSCOPY FLEXIBLE PROXIMAL DIAGNOSTIC performed by Wagner Hernandez MD at ENDOSCOPY [facility] COLONOSCOPY, DIAGNOSTIC (RECTUM) 04/23/2021 adenomatous & hyperplastic polyps, diverticulosis, repeat 6-12 mo / COLONOSCOPY FLEXIBLE PROXIMAL DIAGNOSTIC performed by Dallas Askew MD at ENDOSCOPY [facility] COLONOSCOPY, DIAGNOSTIC (RECTUM) 10/22/2022 benign adenomatous & serrated adenomatous polyps, diverticulosis, repeat 6 mo / COLONOSCOPY FLEXIBLE PROXIMAL DIAGNOSTIC performed by Dallas Askew MD at ENDOSCOPY [facility] COLONOSCOPY, DIAGNOSTIC (RECTUM) 04/08/2023 hemorrhoids/diverticulosis/biopsies show adenomatous and hyperplastic polyps/recall 6 months/COLONOSCOPY FLEXIBLE PROXIMAL DIAGNOSTIC performed by Dallas Askew MD at ENDOSCOPY [facility] COLONOSCOPY, DIAGNOSTIC (RECTUM) 10/21/2023 diverticulosis/hemorrhoids/multiple polyps/biopsies show adenomatous and hyperplastic polyps/recall6 months/COLONOSCOPY FLEXIBLE PROXIMAL DIAGNOSTIC performed by Dallas Askwe MD at ENDOSCOPY [facility] CORONARY ANGIOGRAPHY W/RIGHT+LEFT CATH N/A 04/09/2024 CORONARY ANGIOGRAPHY W/RIGHT+LEFT CATH performed by Jose Cruz Hill DO at [facility] CORONARY ARTERIES BYPASS, TWO 11/10/2015 CORONARY ARTERY BYPASS GRAFT WITH 2 VEIN GRAFTS performed by Jorge Colón MD at OR [facility] ENDO,VIDEO ASSIST HARVEST KAROLINE 11/10/2015 ENDOSCOPY VIDEO ASSISTED HARVEST VEIN performed by Jorge Colón MD at OR [facility] REMOVE CATARACT, INSERT LENS PROSTH Right 08/22/2020 RIGHT EXTRACAPSULAR CATARACT REMOVAL WITH INTRAOCULAR LENS performed by Pola Lozano MD at OR [facility] REMOVE CATARACT, INSERT LENS PROSTH Left 09/05/2020 LEFT EXTRACAPSULAR CATARACT REMOVAL WITH INTRAOCULAR LENS performed by Pola Lozano MD at OR [facility] REPLACEMENT AORTIC VALVE, BYPASS WITH PROSTHETIC VALVE 11/10/2015 REPLACEMENT AORTIC VALVE performed by Jorge Colón MD at OR [facility] Social History Socioeconomic History Marital status: Tobacco Use Smoking status: Never Smokeless tobacco: Never Vaping Use Vaping status: Never Used Substance and Sexual Activity Alcohol use: Yes Comment: occ Drug use: No Social Needs Financial Resource Strain: Low Risk (09/27/2024) Financial Resource Strain Do you have any trouble paying for your medications, or do you think you might in the future? (Adult - for ages 18 years and over): No Food Insecurity: No Food Insecurity (09/27/2024) Food Insecurity Do you need food for this week? (Adult - for ages 18 years and over): No Transportation Needs: No Transportation Needs (09/27/2024) Transportation Needs Has lack of transportation kept you from medical appointments, meetings, work, or from getting things needed for daily living? Check all that apply. (Adult - for ages 18 years and over): No Social Connections: Socially Integrated (09/27/2024) Social Connections How often do you feel lonely or isolated from those around you? (Adult - for ages 18 years and over): Never Housing Stability: Low Risk (09/27/2024) Housing Stability Do you currently live in a retirement or have no steady place to sleep at night? (Adult - for ages 18 years and over): No Are you homeless or worried that you might be in the future? (Adult - for ages 18 years and over): No Family History Problem Relation Name Age of Onset Kidney disease Mother Diabetes Mother Hodgkin's lymphoma Mother 45 Pancreatic cancer Father 80 - 89 panc vs liver Kidney cancer Father 80 - 89 Gynecological Cancer Sister 66 uterine vs cervical Colon polyps Brother low number Colon polyps Brother low number Heart disease Grandmother (Maternal) Colon cancer Grandfather (Maternal) Heart disease Grandmother (Paternal) Colon cancer Grandfather (Paternal) Other (thalassemia) Daughter Cerebral palsy Son Other (thalassemia) Son Heart disease Uncle (Maternal) Blood Disorder Child Review of patient's allergies indicates: Allergen Reactions Allopurinol Rash Environmental [Pollen] Seasonal allergies Molds & Smuts documented in this encounter Nursing Notes * Samia Mccurdy LPN - 11/03/2024 10:49 AM EST Chief Complaint Patient presents with Follow Up Return pulm. 6 weeks. Moderate persistent asthma. Fluid retention. Hard time taking deep breath. Interm History/Respiratory Symptoms Cough: yes- no phlegm Hemoptysis: no Sinus Symptoms: no Hospitalizations: no ED Trips: no Triggers: cold weather Nocturnal: sleeps with head elevated CPAP/BiPAP/O2: O2 2L at night DME Supplier: [employer] Flu Vaccine: 2023 Pneumovax: 2020 Prevnar: 2019 COVID 19: x7. MMRC Dyspnea Scale = 4 (I am too breathless to leave the house or I am breathless when dressing) documented in this encounter Plan of Treatment Upcoming Encounters Date Type Department Care Team (Latest Contact Info) Description 11/04/2024 10:00 AM EST Nurse Only Family Practice 65 [facility] 293 [facility] [place] [address] College, Nurse [facility] Prac [address], [place] [address] 11/09/2024 3:00 PM EST Cardiac Studies [facility] [address] 11/12/2024 10:00 AM EST Office Visit [facility] [address] Lib[facility] Rosales [facility] [address] 11/24/2024 2:30 PM EST Office Visit Cardiology, [facility] 132 [facility] [place] [address] Tracey Cole CRNP [address] [facility] [place] [address] 12/14/2024 8:40 AM EST Office Visit Family Practice [address] [place] [address] 293 [facility] [place] [address] Chelle Vasquez DO [address] [place] [address] 01/03/2025 11:00 AM EDT Office Visit Cardiology, [facility] 132 [facility] [place] [address] Uriel Warren DO 132 [place] [address] 02/11/2025 1:30 PM EDT Office Visit Dermatology [facility] 200 [facility], [place] [address] Juanito Browning MD 16 [place] [address] 02/17/2025 11:30 AM EDT Office Visit Cardiology, [facility] [address] [place] [address] Uriel Warren O, DO [address] [place] [address] 02/17/2025 2:30 PM EDT Office Visit Hematology/Oncology [facility] 200 [facility] [place] [id number] Leonarda Trevino CRNP [address] [facility] [place] [address] 03/23/2025 8:40 AM EDT Office Visit Pulmonary Medicine, [facility] [address] [place] [address] Marino Rodriguez MD [address] [facility] [place] [address] 05/04/2025 9:30 AM EDT Office Visit Pulmonary Medicine, [facility] [address] [place] [address] Marino Rodriguez MD [address] [place] [address] 05/06/2025 8:00 AM EDT Hospital Encounter ENDO [facility], Endoscopy Room [facility] [address] [place] [phone] Dallas Askew MD [address] [place] [address] 05/06/2025 8:00 AM EDT - 05/06/2025 8:30 AM EDT Surgery ENDO [facility], Endoscopy Room [facility] [address] [place] [id number] Dallas Askew MD [address] [place] [address] COLONOSCOPY FLEXIBLE PROXIMAL DIAGNOSTIC Scheduled Procedures Name [...] this encounter Medical Devices Implanted Type Area Solvent Process Extractor Operator Device Identifier Shelf Expiration Date Model / Serial / Lot Marker Coronary Amgm-Sd - [id number] Implanted:Qty: 2 on 11/10/2015 by Jorge Colón MD at OR [facility] N/A: Heart [employer] [facility] / / [id number] Valve Heart Aortic Epic 25mm - [id number] - [id number] Implanted:Qty: 1 on 11/10/2015 by Jorge Colón MD at OR [facility] N/A: Heart [facility] : CARDIOVASCULAR 03/05/2019 [id number] / [id number] / Sut Steel 6 M654g - [id number] Implanted:Qty: 4 on 11/10/2015 by Jorge Colón MD at OR [facility] N/A: Chest JNJ : [employer] M654G / / Lens Intraoc 16.5 - [id number] - [id number] Implanted:Qty: 1 on 08/22/2020 by Pola Lozano MD at OR [facility] Right: Eye [employer] 02/09/2025 [id number] / [id number] / [id number] Lens Intraoc 16.0 - [id number] - [id number] Implanted:Qty: 1 on 09/05/2020 by Pola Lozano MD at OR [facility] Left: Eye [employer]CH [employer] LOMB 02/09/2025 [id number] / [id number] / [id number] Clip Quick 2.8mm 230cm - [id number] Implanted:Qty: 1 on 04/23/2021 by Dallas Askew MD at ENDOSCOPY [facility] Colon [employer] 12/11/2023 [id number] / / 13K Cath Thermodilution 6fr - [id number] Implanted:Qty: 1 on 04/09/2024 by Jose Cruz Hill DO at [facility]ARD[facility] [employer] [id number] 10/27/2025 [id number] / / [id number] Stent Xience Skypoint 3.25x15 - [id number] Implanted:Qty: 1 on 04/09/2024 by Jose Cruz Hill DO at [facility] [employer] [facility] : VASCULAR DEVICES 01/04/2027 [id number] / / [id number] documented as of this encounter Visit Diagnoses Diagnosis Moderate persistent asthma without complication- Primary Unspecified asthma S/P AVR (aortic valve replacement) Heart valve replaced by other means History of colon polyps Personal history of [...] Power of Attor baldev? No Care Teams Principal Solutions Architect Relationship Specialty Start Date End Date Chelle Vasquez DO [address] [place] [address] PCP - General Family Medicine 03/30/24 documented as of this encounter
--- OUTSIDE RECORDS SUMMARY | 2024-12-08 08:16 | External Medical Summary | Summary of Care ---
Author Name Unknown Organization [facility] Address [address] [place] [address] Phone [phone] Care Team Providers Care Electronics Teacher Name Role Phone Chelle Vasquez DO Primary Care Provider Encounter Details Date Type Department Care Team (Late st Contact Info) Description 11/12/2024 Orders Only [facility] [address] [place] [address] Chelle Vasquez DO 293 [place] [address] Allergies Active Allergy Reactions Criticality Noted Date [...] Respimat 2.5 MCG/ACT Inhalation Aerosol Solution (Tiotropium [place] Monohydrate) Inhale 2 Puffs by mouth in [...] prox RCA 80% stenosis with placement of 3.92p16mx Xience Skypoint WEST, post-dilated with 3.5mm NC [...] AM EST Office Visit Sleep Disorders Ctr [facility] 132 [facility] [place] [address] Libby Rosales CRNP [address] [place] [address] 11/12/2024 1:40 PM EST Office Visit Family Practice [address] [place] [address] [facility] [address] Chelle Vasquez DO 293 [facility], [place] [address] 11/12/2024 1:40 PM EST Pharmacy Family Practice 65 [facility] 293 [place] [phone] College, Pharmacist [address] [place] [address] 11/24/2024 2:30 PM EST Office Visit Cardiology, [facility] 132 [facility] [place] [address] Tracey Cole, GILBERTO 400 [facility] [place] [address] 12/14/2024 8:40 AM EST Office Visit Family Practice [address] [place] [address] 293 [place] [address] Chelle Vasquez, DO 293 [facility] [place] [address] 01/03/2025 11:00 AM EDT Office Visit Cardiology, [facility] 132 [facility] [place] [address] Uriel Warren, DO 132 [facility] [address] 02/11/2025 1:30 PM EDT Office Visit Dermatology [facility] 200 [facility] [address] Juanito Browning MD [address] [place] [address] 02/17/2025 11:30 AM EDT Office Visit Cardiology, [facility] 132 [facility] [place] [address] Uriel Warren, DO 132 [facility] [place] [address] 02/17/2025 2:30 PM EDT [facility] [address] [place], [place] [phone] Leonarda Trevino CRNP [address] [place] [address] 03/23/2025 8:30 AM EDT Office Visit Pulmonary Medicine, [facility] [address] [place] [address] Marino Rodriguez MD [address] [facility] [place] [address] 05/04/2025 9:30 AM EDT Office Visit Pulmonary Medicine, [facility] 132 [place] [address] Marino Rodriguez MD [address] [facility] [place] [address] 05/06/2025 8:00 AM EDT Hospital Encounter ENDO OSS, Endoscopy Room [facility] [address] [place] [phone] [place] Askew MD [address] [place] [address] 05/06/2025 8:00 AM EDT - 05/06/2025 8:30 AM EDT Surgery ENDO OSS, Endoscopy Room [facility] [address] [place] [phone] [place] Askew MD [address] [place] [address] COLONOSCOPY FLEXIBLE PROXIMAL DIAGNOSTIC Pending Results Name Type Priority Associated Diagnoses Date /Time XR CHEST 2 VIEWS Medical Imaging Routine Scheduled Procedures Name Priority Associated Diagnoses Date/Ti [...] this encounter Medical Devices Implanted Type Area Tractor Expert Device Identifier Shelf Expiration Date Model / Serial / Lot Marker Coronary [facility]-S[facility] - [id number] Implanted:Qty: 2 on 11/10/2015 by Jorge Colón MD at [place] [facility] [place]/A: Heart [employer] AM-SD / / [id number] Valve Heart Aortic Epic 25mm - [id number] - [id number] Implanted:Qty: 1 on 11/10/2015 by Jorge Colón MD at [place] [facility] [place] N/A: Heart ST LENNY : CARDIOVASCULAR 03/05/2019 [id number] 5-00 / [id number] / Sut Steel 6 M654g - [id number] Implanted:Qty: 4 on 11/10/2015 by Jorge Colón MD at [place] [facility] [place] N/A: Chest JNJ : [employer] M654G / / Lens Intraoc 16.5 - [id number] - [id number] Implanted:Qty: 1 on 08/22/2020 by Pola Lozano MD at OR [facility] Right: Eye BAUSCH & LOMB 02/09/2025 [id number] 5 / [id number] / [id number] Lens Intraoc 16.0 - [id number] - [id number] Implanted:Qty: 1 on 09/05/2020 by Pola Lozano MD at OR [facility] Left: Eye BAUSCH & LOMB 02/09/2025 [id number] 0 / [id number] / [id number] Clip Quick 2.8mm 230cm - [id number] Implanted:Qty: 1 on 04/23/2021 by [place] Askew MD at ENDOSCOPY [facility] Colon [employer] 12/11/2023 HX-202UR .A / / 13K Cath Thermodilution 6fr - [id number] Implanted:Qty: 1 on 04/09/2024 by Jose Cruz Hill DO at CARDIAC [facility]S [facility] [place] [employer]AYA [employer] DYLAN [id number] 10/27/2025 [id number] / / [id number] Stent Xience Skypoint 3.25x15 - [id number] Implanted:Qty: 1 on 04/09/2024 by Jose Cruz Hill DO at CARDIAC [facility]S [facility] [place] CASTELLANOS LABS : VASCULAR DEVICES 01/04/2027 [id number] / / [id number] documented as of this encounter Advance Directives [...] Power of Attor baldev? No Care Teams Electronics Teacher Relationship Specialty Start Date End Date Chelle Vasquez DO [address] [place] [address] PCP - General Family Medicine 03/30/24 documented as of this encounter
--- OUTSIDE RECORDS SUMMARY | 2024-12-08 08:16 | External Medical Summary | Summary of Care ---
Author Name Unknown Organization [facility] Address [address] [facility] [address] Phone [phone] Care Team Providers Care Ballroom Dancer Name Role Phone Chelle Vasquez DO Primary Care Provider [phone] Reason for Visit * Reason Onset Date Comments Emergency Department Follow-Up 11/11/2024 Encounter Details Date Type Department Care Team (Late st Contact Info) Description 11/11/2024 Telephone Family Practice [address] [place] 293 [place] [address] Chelle Vasquez DO 293 [place] [address] Emergency Department Follow-Up (11/11) Allergies Active Allergy Reactions Criticality Noted Date Comments Allopurinol Rash 04/17/2020 Pollen 04/22/2012 Seasonal allergies Molds & Smuts 07/01/2022 documented as of this encounter (statuses as of 11/11/2024) Medications Fexofenadine HCl 180 MG Oral Tablet [...] Respimat 2.5 MCG/ACT Inhalation Aerosol Solution (Tiotropium [place] Monohydrate) Inhale 2 Puffs by mouth in [...] as of this encounter (statuses as of 11/11/2024) Active Problems Problem Noted Date Diagnosed Date [...] prox RCA 80% stenosis with placement of 3.20k78wz Xience Skypoint WEST, post-dilated with 3.5mm NC Balloon reducing stenosis to 0% with JAMES 3 flow Essential (primary) hypertension 12/08/2023 Hyperlipidemia 12/08/2023 Atherosclerosis of [place] ronary artery without angina pectoris 12/08/2023 [...] as of this encounter (statuses as of 11/11/2024) Resolved Problems Problem Noted Date Diagnosed Date [...] as of this encounter (statuses as of 11/11/2024) Immunizations Name Administration Dates Next Due COVID-19 [...] encounter Miscellaneous Notes * Telephone Encounter - Chelle Vasquez DO - 11/11/2024 12:20 PM EST Noted. * Telephone Encounter - Rea Benitez LPN - 11/11/2024 11:50 AM EST The patient was contacted in regards to their recent: Emergency Department visit Did patient call the office before going to ER: No When was patient seen: 11/10/24 Which ED: [facility] What were they seen for: Syncopal episode, fall, head laceration. What did ED think was wrong (dx): Scalp laceration, head injury What testing did they have done: cxr, lab work, ct scan , and respiratory panel swab Any new medications prescribed: none When did the ED recommend they follow up: in next few days. Is Ed record available: Yes How is patient feeling today: Reports he feels tired. States lungs are clear today. States neck is stiff, back was hurting last night. States pulm sent him in script for prednisone - has not picked up. Not sure if he is going to take it. Patient concerns today: no concerns. [facility] Date of Fall:11/10/24 Time of Fall: 2-2:30 in the afternoon. Patient Name: Michael Hughes Location of Fall: Bedroom Factors Involved in Falls: Acute medical conditions Description of Fall:Was laying in bed with head elevated, started to cough and something came up, unsure if throat or stomach. States he had a spasm and couldn't catch his breath. He sat up and "blacked out". What was the patient doing before the fall?Lying in bed. Describe positioning on the floor:Woke up face first on floor by his nightstand. Thinks he hit headon nightstand. Fall Category: Faint/Syncopy Fall Witnessed: No Did patient use First Alert or Lifeline?No EMS Response:No At time of the fall were there any injuries apparent? Yes If yes, area of injury: abrasion on head At the time of the fall, did the patient complain of pain? Yes If yes, where?headache and neck pain, back of right shoulder. Did the patient complain of dizziness?Yes During the fall was the patient using an assistive device? No Were any monitoring Devices in Place: NO. Other:none Was the patient wearing Appropriate Footwear:No Was patient assisted in getting up? Yes If yes, by whom? Previous Interventions: none Compliance with interventions: n/a Number of falls in the past month: 0 Number of falls in the past 6 months: 0 Recommendations: n/a Patient agreeable to ED f/u office visit with Dr. Vasquez 11/12/24 at 1:40 pm. Pt already placed onschedule. Family Practice 65 [facility] [place] 293 [place] [address] 11/11/2024 documented in this encounter Plan of Treatment Upcoming Encounters Date Type Department Care Team (Late st Contact Info) Description 11/12/2024 10:00 AM EST Office Visit Sleep Disorders Ctr [facility] 132 [facility] [place] [address] Libby Rosales CRNP 132 [facility] [place] [address] 11/12/2024 1:40 PM EST Office Visit Family Practice [address] [place] [address], [place] [phone] Chelle Vasquez, 293 [facility], [place] [address] 11/12/2024 1:40 PM EST Pharmacy Family Practice [address] [place] [address], [place] [phone] College, Pharmacist [address] [place] [address], [place] [address] 11/24/2024 2:30 PM EST Office Visit Cardiology, [facility] 132 [facility] [place] [address] Tracey Cole CRNP 400 [facility] [place] [address] 12/14/2024 8:40 AM EST Office Visit Family Practice [address] [place] [address], [place] [phone] Chelle Vasquez, DO 293 [facility], [place] [address] 01/03/2025 11:00 AM EDT Office Visit Cardiology, [facility] 132 [facility] [place] [address] Uriel Warren, DO [address] [place] [address] 02/11/2025 1:30 PM EDT Office Visit Dermatology [facility] 200 [facility] [place], [place] [address] Juanito Browning MD 16 [place] [address] 02/17/2025 11:30 AM EDT Office Visit Cardiology, [facility] 132 [facility] [place] [address] Uriel Warren, DO 132 [facility] [place] [address] 02/17/2025 2:30 PM EDT Office Visit Hematology/Oncolog y [facility] 200 [facility] [place] [address] Leonarda Trevino CRNP [address] [place] [address] 03/23/2025 8:30 AM EDT Office Visit Pulmonary Medicine, [facility] 132 [facility] [place] [address] Marino Rodriguez MD [address] [place] [address] 05/04/2025 9:30 AM EDT Office Visit Pulmonary Medicine, [facility] 132 [facility] [place] [address] Marino Rodriguez MD [address] [place] [address] 05/06/2025 8:00 AM EDT Hospital Encounter ENDO OSSC, Endoscopy Room [facility] [address] [place] [address] [place] Askew MD [address] [place] [address] 05/06/2025 8:00 AM EDT - 05/06/2025 8:30 AM EDT Surgery ENDO OSSC, Endoscopy Room [facility] [address] [place] [phone] [place] Askew MD [address] [place] [address] COLONOSCOPY FLEXIBLE PROXIMAL DIAGNOSTIC Scheduled Procedures Name [...] this encounter Medical Devices Implanted Type Area Miller Apprentice Device Identifier Shelf Expiration Date Model / Serial / Lot Marker Coronary [facility] - [id number] Implanted:Qty: 2 on 11/10/2015 by Jorge Colón MD [place] [facility] [place]/A: Heart [employer] [facility] [facility] / / [id number] Valve Heart Aortic Epic 25mm - [id number] - [id number] Implanted:Qty: 1 on 11/10/2015 by Jorge Colón MD [place] [facility] [place] N/A: Heart ST LENNY : CARDIOVASCULAR 03/05/2019 [id number] 5-00 / [id number] / Sut Steel 6 M654g - [id number] Implanted:Qty: 4 on 11/10/2015 by Jorge Colón MD [place] [facility] [place] N/A: Chest JNJ : [employer] M654G / / Lens Intraoc 16.5 - [id number] - [id number] Implanted:Qty: 1 on 08/22/2020 by Pola Lozano MD at OR [facility] Right: Eye BAUSCH & LOMB 02/09/2025 [id number] 5 / [id number] 39 / [id number] Lens Intraoc 16.0 - [id number] - [id number] Implanted:Qty: 1 on 09/05/2020 by Pola Lozano MD at OR [facility] Left: Eye BAUSCH & LOMB 02/09/2025 [id number] 0 / [id number] / [id number] Clip Quick 2.8mm 230cm - [id number] Implanted:Qty: 1 on 04/23/2021 by [place] Askew MD at ENDOSCOPY [facility] Colon [employer] 12/11/2023 HX-202UR .A / / 13K Cath Thermodilution 6fr - [id number] Implanted:Qty: 1 on 04/09/2024 by Jose Cruz Hill DO at [facility] [facility] [place] [employer] DYLAN [id number] 10/27/2025 [id number] / / [id number] Stent Xience Skypoint 3.25x15 - [id number] Implanted:Qty: 1 on 04/09/2024 by Jose Cruz Hill DO at [facility] [place] CASTELLANOS LABS : VASCULAR DEVICES 01/04/2027 [id number] / / [id number] documented as of this encounter Advance Directives [...] Power of Attor baldev? No Care Teams Ballroom Dancer Relationship Specialty Start Date End Date Chelle Vasquez DO 293 [facility] [place] [address] PCP - General Family Medicine 03/30/24 documented as of this encounter
--- OUTSIDE RECORDS SUMMARY | 2024-12-08 08:17 | External Medical Summary ---
Author Name Unknown Address Unknown Organization K01[place] [place] [address] [place] [address] Laboratory Report Ordering Provider Test Date Status ANABELL ROSENBERG 11/03/2024 07:59:28 Final Exclude Heart Failure: <300 pg/mL
Diagnose Heart Failure:
Age <50 yr: >450 pg/mL
50-75 yr: >900 pg/mL
>75 yr: >1800 pg/mL
GFR is 30-59 mL/min: >1200 pg/mL or Age- adjusted values
GFR <30 mL/min: do not use, not reliable

Prognostic threshold: 1000 pg/mL Observation Date Value Abnormality Reference (Units ) Status BNP, Pro-hormone 11/03/2024 07:59:28 796 Above high no rmal <300 (pg/mL) Final Performing Location [facility] [place] [facility] [address] [place] [address]
--- OUTSIDE RECORDS SUMMARY | 2024-12-08 08:17 | External Medical Summary | Summary of Care ---
Author Name Unknown Organization [facility] Address [address] [facility] [place] [address] Phone [phone] Care Team Providers Care It Analyst Name Role Phone Chelle Vasquez DO Primary Care Provider Reason for Visit * Reason Comments Outpatient Testing Encounter Details Date Type Department Care Team (Late st Contact Info) Description 11/03/2024 9:10 AM EST Laboratory Laboratory, [facility] 132 [facility] [place] [address] [facility] 132 [facility] [place] [address] Localized edema; KUHN (dyspnea on exertion) Allergies Active Allergy Reactions Criticality Noted Date [...] OralDaily(Non-Specified), Only taking at bedtime, Reported on 09/27/2024 Aspirin 81 MG Oral Tablet Chewable Take [...] the morning. 100 Tablet 3 4 Active Ventolin HFA 108 (90 Base) MCG/ACT Inhalation Aerosol Solution Inhale 2 Puffs by mouth as needed for Cough or Wheezing. 18 g 3 4 Active Lisinopril 10 MG Oral [...] 3 10/20/2024 1:36 PM EST 4 Active Fluticasone-Pedro meterol 115-21 MCG/ACT Inhalation Aerosol (Advair HFA) Inhale 2 Puffs by mouth in the morning and 2 Puffs before bedtime. 12 g 12 10/07/2024 5:38 PM EST 4 Active Additional Information Patient not taking.Reported on 09/27/2024 Fluticasone-Pedro meterol 115-21 MCG/ACT Inhalation Aerosol (Advair HFA) Inhale 2 Puffs by mouth in the morning and 2 Puffs before bedtime. 12 g 12 4 Active Additional Information Patient not taking.Reported on 09/27/2024 Spiriva Respimat 2.5 MCG/ACT Inhalation Aerosol Solution (Tiotropium [place] Monohydrate) Inhale 2 Puffs by mouth in the morning. 4 g 10 10/07/2024 5:38 PM EST 4 Active HumidifierIndic ations:Hodgkin lymphoma, unspecified Hodgkin lymphoma type, unspecified body region (HCC) Humidifier for oxygen concentrator 2 Each 4 Active Compressor NebulizerIndica tions:Hodgkin lymphoma, unspecified Hodgkin lymphoma type, unspecified body region (HCC),Wheezing, Chronic pleural effusion Inhale via nebulizer. Use as directed. 1 Each 4 Active Probenecid 500 MG Oral Tablet (Benemid) Take 1 Tablet by mouth in the morning and 1 Tablet before bedtime. 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 See genetic counselor note for more details (07/08/2024). Calculus of gallbladder with out cholecystitis without obstruction 04/22/2024 Angina at rest 04/09/2024 S/P drug eluting coronary stent placement 2023 Overview (04/09/2024): S/p successful PCI to prox RCA 80% stenosis with placement of 3.08z30mi Xience Skypoint WEST, post-dilated with 3.5mm NC Balloon reducing stenosis to 0% with JAMES 3 flow Essential (primary) hypertension 12/08/2023 Hyperlipidemia 12/08/2023 Atherosclerosis of [place] ronary artery without angina pectoris 12/08/2023 [...] No 09/27/2024 Does the household have a memorial medical centerlar source of income? (Household - [...] Care Team (Latest Contact Info) Description 11/03/2024 8:20 AM EST Office Visit Family Practice [address] [place] [address] 293 [place] [address] Chelle Vasquez, DO 293 [facility] [place] [address] 11/03/2024 10:40 AM EST Office Visit Pulmonary Medicine, [facility] 132 [facility] [place] [address] Marino Rodriguez MD [address] [place] [facility] [place] [address] 11/24/2024 2:30 PM EST Office Visit Cardiology, [facility] 132 [facility] [place] [address] Tracey Cole CRNP [address] [place] [address] [place] [address] 12/14/2024 8:40 AM EST Office Visit Family Practice [address] [place] [address] 293 [place] [address] Chelle Vasquez, DO 293 [facility] [place] [address] 01/03/2025 11:00 AM EDT Office Visit Cardiology, [facility] 132 [facility] [place] [address] Uriel Warren, DO 132 [facility] [place] [address] 02/11/2025 1:30 PM EDT Office Visit Dermatology [facility] 200 [facility] [place], [place] [address] Juanito Browning MD 16 [place] [address] 02/17/2025 11:30 AM EDT Office Visit Cardiology, [facility] [address] [facility] [place] [address] Uriel Warren O, DO 132 [facility] [place] [address] 02/17/2025 2:30 PM EDT Office Visit Hematology/Oncology [facility] 200 [facility] [place], [place] [address] Leonarda Trevino CRNP [address] [place], [place] [address] [address] 03/23/2025 8:40 AM EDT Office Visit Pulmonary Medicine, [facility] [address] [place] [address] Marino Rodriguez MD [address] [facility] [address] 05/06/2025 8:00 AM EDT Hospital Encounter ENDO OSSC, Endoscopy Room [facility] [address] [place] [address] [place] Askew MD [address] [place] [address] 05/06/2025 8:00 AM EDT - 05/06/2025 8:30 AM EDT Surgery ENDO OSSC, Endoscopy Room [facility] [address] [place] [phone] [place] Askew MD [address] [place] [address] COLONOSCOPY FLEXIBLE PROXIMAL DIAGNOSTIC Pending Results Name Type Priority Associated Diagnoses Date /Time BASIC METABOLIC PANEL Lab STAT Localized edema KUHN (dyspnea on exertion) 11/03/2024 7:59 AM EST CBC Lab STAT Localized edema KUHN (dyspnea on exertion) 11/03/2024 7:59 AM EST BNP, NT-PRO Lab STAT Localized edema KUHN (dyspnea on exertion) 11/03/2024 7:59 AM EST Scheduled Procedures Name Priority Associated Diagnoses Date/Ti me COLONOSCOPY FLEXIBLE PROXIMAL DIAGNOSTIC Recall History of colon polyps Family history of colonic polyps 05/06/2025 8:00 AM EDT Health Maintenance Due Date Last Done Comments Hepatitis C Screening 02/02/1973 Cologuard 1999 Fecal Occult Blood Test 1999 Sigmoidoscopy 1999 Adult Wellness Visit 02/02/2020 HOME BP CUFF VALIDATION YEARLY 03/04/2025 03/04/2024 GFR 09/14/2025 09/14/2024, 06/13, 04/09/2024, Additional history exists Depression Screening 09/17/2025 09/17/2024 Albumin/Creatinine Ratio 02/23/2027 02/24/2024 DTap/Tdap Vaccines (3 [...] this encounter Medical Devices Implanted Type Area Diesel Truck Crane Operator Device Identifier Shelf Expiration Date Model / Serial / Lot Marker Coronary [facility] - [id number] Implanted:Qty: 2 on 11/10/2015 by Jorge Colón MD [place] [facility] [place]/A: Heart [employer] [facility] / / [id number] Valve Heart Aortic Epic 25mm - [id number] - [id number] Implanted:Qty: 1 on 11/10/2015 by Jorge Colón MD [place] [facility] [place] N/A: Heart ST LENNY : CARDIOVASCULAR 03/05/2019 [id number] 5-00 / [id number] / Sut Steel 6 M654g - [id number] Implanted:Qty: 4 on 11/10/2015 by Jorge Colón MD [place] [facility] [place]/A: Chest JNJ : [employer] M654G / / Lens Intraoc 16.5 - [id number] - [id number] Implanted:Qty: 1 on 08/22/2020 by Pola Lozano MD at OR [facility] Right: Eye BAUSCH & LOMB 02/09/2025 [id number] 5 / [id number] / [id number] Lens Intraoc 16.0 - [id number] - [id number] Implanted:Qty: 1 on 09/05/2020 by Pola Lozano MD at OR [facility] Left: Eye BAUSCH & LOMB 02/09/2025 [id number] 0 / [id number] / [id number] Clip Quick 2.8mm 230cm - [id number] Implanted:Qty: 1 on 04/23/2021 by [place] Askew MD at ENDOSCOPY [facility] Colon [employer] 12/11/2023 HX-202UR .A / / 13K Cath Thermodilution 6fr - [id number] Implanted:Qty: 1 on 04/09/2024 by Jose Cruz Hill DO at [facility]ARDIAC [facility] [place] ZELAYA LIF[employer]wide [place]YLAN [id number] 10/27/2025 [id number] / / [id number] Stent Xience Skypoint 3.25x15 - [id number] Implanted:Qty: 1 on 04/09/2024 by Jose Cruz Hill DO at CARDIAC LABS [facility] [place] CASTELLANOS LABS : VASCULAR DEVICES 01/04/2027 [id number] / / [id number] documented as of this encounter Visit Diagnoses Diagnosis Localized edema Edema KUHN (dyspnea on exertion) [...] Power of Attor baldev? No Care Teams It Analyst Relationship Specialty Start Date End Date Chelle Vasquez DO 293 [place] [address] PCP - General Family Medicine 03/30/24 documented as of this encounter
--- OUTSIDE RECORDS SUMMARY | 2024-12-08 08:17 | External Medical Summary | Summary of Care ---
Author Name Unknown Organization [facility] Address [address] [place] [address] Phone [phone] Care Team Providers Care Psychiatric Secretary Name Role Phone Chelle Vasquez DO Primary Care Provider [phone] Reason for Visit * Reason Onset Date Comments Order Request 10/12/2024 Encounter Details Date Type Department Care Team (Late st Contact Info) Description 10/12/2024 Telephone Family Practice [address] [place] [address] [place] [address] Chelle Vasquez DO [address] [place] [address] Order Request Allergies Active Allergy Reactions Criticality Noted Date Comments Allopurinol Rash 04/17/2020 Pollen 04/22/2012 Seasonal allergies Molds & Smuts 07/01/2022 documented as of this encounter (statuses as of 10/12/2024) Medications Fexofenadine HCl 180 MG Oral Tablet [...] Only taking at bedtime, Reported on 09/27/2024 Probenecid 500 MG Oral Tablet (Benemid) Take 1 Tablet by mouth in the morning and 1 Tablet before bedtime. 60 Tablet 5 4 Active Aspirin 81 MG Oral Tablet Chewable Take [...] mouth in the morning. 100 Tablet 3 07/22/2024 11:02 AM EDT 4 Active Fluticasone-Pedro meterol 115-21 MCG/ACT Inhalation [...] Respimat 2.5 MCG/ACT Inhalation Aerosol Solution (Tiotropium [place] Monohydrate) Inhale 2 Puffs by mouth in the morning. 4 g 10 10/07/2024 5:38 PM EST Active HumidifierIndic ations:Hodgkin lymphoma, unspecified Hodgkin lymphoma type, unspecified body region (HCC) Humidifier for oxygen concentrator 2 Each 4 Active Compressor NebulizerIndica tions:Hodgkin lymphoma, unspecified Hodgkin lymphoma type, unspecified body region (HCC),Wheezing, Chronic pleural effusion Inhale via nebulizer. Use as directed. 1 Each 4 Active documented as of this encounter (statuses as of 10/12/2024) Active Problems Problem Noted Date Diagnosed Date [...] prox RCA 80% stenosis with placement of 3.52k36ne Xience Skypoint WEST, post-dilated with 3.5mm NC Balloon reducing stenosis to 0% with JAMES 3 flow Essential (primary) hypertension 12/08/2023 Hyperlipidemia 12/08/2023 Atherosclerosis of [place] co ronary artery without angina pectoris 12/08/2023 [...] as of this encounter (statuses as of 10/12/2024) Resolved Problems Problem Noted Date Diagnosed Date [...] as of this encounter (statuses as of 10/12/2024) Immunizations Name Administration Dates Next Due COVID-19 [...] encounter Miscellaneous Notes * Telephone Encounter - Valerie Vargas LPN - 10/12/2024 1:54 PM EST Called patient, advised him that orders was placed with [facility]. States last week he did have ankle swelling but this has improved. States does fatigue easily and does get sob Has no chest pain. States fatigues easlily. Wears oxygen only at night and naps. Did tell patient that we always have someone framing consultant. Encouraged to rest , elevate legs and wear andrew hose. Using medications, encouraged to make sure inhalers are used correctly. * Telephone Encounter - Tigist Aparicio OSA - 10/12/2024 12:05 PM EST Michael called to let Valerie know he spoke to [facility] today and they have not received the orders for the humidifier and nebulizer. He is asking if she can follow up with this. Any questions, please call Michael on his mobile number. documented in this encounter Plan of Treatment Upcoming Encounters Date Type Department Care Team (Latest Contact Info) Description 11/03/2024 8:00 AM EST Hospital Encounter ENDO OSSC, Endoscopy Room [facility] [address] [place] [address] Dallas Askew MD [address] [place] [address] 11/03/2024 8:00 AM EST - 11/03/2024 8:30 AM EST Surgery ENDO O[facility], Endoscopy Room [facility] [address] [place] [phone] Dallas Askew MD [address] [facility] [place] [address] COLONOSCOPY FLEXIBLE PROXIMAL DIAGNOSTIC 12/14/2024 8:40 AM EST Office Visit Family Practice [address] [place] [address] 293 [place] [address] Chelle Vasquez, DO 293 [place] [address] 01/03/2025 11:00 AM EDT Office Visit Cardiology, [facility] 132 [facility] [place] [address] Uriel Warren, DO 132 [facility] [place] [address] 02/11/2025 1:30 PM EDT Office Visit Dermatology [facility] [address] [facility] [place] [address] Juanito Browning MD [address] [place] [address] 02/17/2025 11:30 AM EDT Office Visit Cardiology, [facility] 132 [facility] [place] [address] Uriel Warren, DO [address] [facility] [address] 02/17/2025 2:30 PM EDT Office Visit Hematology/Oncology [facility] 200 [facility] [place] [phone] Leonarda Trevino CRNP [address] [place] [address] [place] [address] 03/23/2025 8:40 AM EDT Office Visit Pulmonary Medicine, [facility] 132 [facility] [place] [address] Marino Rodriguez MD [address] [facility] [place] [address] Scheduled Procedures Name Priority Associated Diagnoses Date/Ti me COLONOSCOPY FLEXIBLE PROXIMAL DIAGNOSTIC History of colon polyps Family history of colonic polyps 11/03/2024 8:00 AM EST Health Maintenance Due Date Last Done Comments [...] this encounter Medical Devices Implanted Type Area Beauty Consultant Device Identifier Shelf Expiration Date Model / Serial / Lot Marker Coronary Amgm-Sd - [id number] Implanted:Qty: 2 on 11/10/2015 by Jorge Colón MD at OR [facility] N/A: Heart [employer]SEE [employer] [facility]-SD / / [id number] Valve Heart Aortic Epic 25mm - [id number] - [id number] Implanted:Qty: 1 on 11/10/2015 by Jorge Colón MD at OR [facility] N/A: Heart ST LENNY : CARDIOVASCULAR 03/05/2019 [id number] 5-00 / [id number] 1 / Sut Steel 6 M654g - [id number] Implanted:Qty: 4 on 11/10/2015 by Jorge Colón MD at OR [facility] N/A: Chest JNJ : [employer] M654G / / Lens Intraoc 16.5 - [id number] - [id number] Implanted:Qty: 1 on 08/22/2020 by Pola Lozano MD at OR [facility] Right: Eye BAUSCH [employer] LOMB 02/09/2025 [id number] 5 / [id number] / [id number] Lens Intraoc 16.0 - [id number] - [id number] Implanted:Qty: 1 on 09/05/2020 by Pola Lozano MD at OR [facility] Left: Eye BAUSCH & LOMB 02/09/2025 [id number] 0 / [id number] / [id number] Clip Quick 2.8mm 230cm - [id number] Implanted:Qty: 1 on 04/23/2021 by Dallas Askew MD at ENDOSCOPY [facility] Colon [employer] 12/11/2023 HX-202UR .A / / 13K Cath Thermodilution 6fr - [id number] Implanted:Qty: 1 on 04/09/2024 by Jose Cruz Hill DO at CARDIAC LABS [facility] [employer] D[employer]AN [id number] 10/27/2025 [id number] / / [id number] Stent Xience Skypoint 3.25x15 - [id number] Implanted:Qty: 1 on 04/09/2024 by Jose Cruz Hill DO at CARDIAC LABS [facility] [employer]STELLANOS LABS : VASCULAR DEVICES 01/04/2027 [id number] / / [id number] documented as of this encounter Advance Directives [...] Power of Attor baldev? No Care Teams Psychiatric Secretary Relationship Specialty Start Date End Date Chelle Vasquez DO [address] [place] [address] PCP - General Family Medicine 03/30/24 documented as of this encounter
--- OUTSIDE RECORDS SUMMARY | 2024-12-08 08:17 | External Medical Summary ---
Author Name Unknown Address Unknown Organization [facility] [place] [address] Laboratory Report Ordering Provider Test Date Status ANABELL ROSENBERG 11/03/2024 07:59:28 Final Observation Date Value Abnormality Reference (Units ) Status BUN 11/03/2024 07:59:28 24 Above high normal 6-20 (mg/dL) Final Creatinine 11/03/2024 07:59:28 1.4 Above high normal 0.6-1.2 (mg/dL) Final Glomerular filtration rate/1.73 sq M.predicted [Volume Rate/Area] in Serum, Plasma or Blood by Creatinine-based formula (CKD-EPI) 11/03/2024 07:59:28 56 Below low normal >=60 (mL/min) Final eGFR is calculated based on the CKD-EPI 2020 equation. Sodium 11/03/2024 07:59:28 139 135-146 (m mol/L) Final Potassium 11/03/2024 07:59:28 4.8 3.5-5.1 (m mol/L) Final Cl 11/03/2024 07:59:28 98 98-107 (mm ol/L) Final CO2 11/03/2024 07:59:28 32 22-32 (mmo l/L) Final Anion gap 11/03/2024 07:59:28 9 7-15 (mmol /L) Final Glucose 11/03/2024 07:59:28 110 70-120 (mg /dL) Final Calcium 11/03/2024 07:59:28 9.4 8.4-10.2 ( mg/dL) Final Performing Location [facility] - [address] [place] [address]
--- OUTSIDE RECORDS SUMMARY | 2024-12-08 08:17 | External Medical Summary | Summary of Care ---
Author Name Unknown Organization [facility] Address [address] [facility] [place] [address] Phone [phone] Care Team Providers Care Air Hole Driller Name Role Phone JyotsnaMona omntieljackeline Lazo DO Primary Care Provider Encounter Details Date Type Department Care Team (Late st Contact Info) Description 10/26/2024 Population Health External Data Unspecified Department Allergies Active Allergy Reactions Criticality Noted Date Comments Allopurinol Rash 04/17/2020 Pollen 04/22/2012 Seasonal allergies Molds & Smuts 07/01/2022 documented as of this encounter (statuses as of 10/27/2024) Medications Fexofenadine HCl 180 MG Oral Tablet [...] Respimat 2.5 MCG/ACT Inhalation Aerosol Solution (Tiotropium [place] Monohydrate) Inhale 2 Puffs by mouth in [...] as of this encounter (statuses as of 10/27/2024) Active Problems Problem Noted Date Diagnosed Date [...] prox RCA 80% stenosis with placement of 3.67w31lv Xience Skypoint WEST, post-dilated with 3.5mm NC Balloon reducing stenosis to 0% with JAMES 3 flow Essential (primary) hypertension 12/08/2023 Hyperlipidemia 12/08/2023 Atherosclerosis of [place] co ronary artery without angina pectoris 12/08/2023 [...] as of this encounter (statuses as of 10/27/2024) Resolved Problems Problem Noted Date Diagnosed Date [...] as of this encounter (statuses as of 10/27/2024) Immunizations Name Administration Dates Next Due COVID-19 [...] EST Hospital Encounter ENDO OSSC, Endoscopy Room [facility] 132 [facility] [place] [phone] Dallas Askew MD 132 [facility] [place] [address] 11/03/2024 8:00 AM EST - 11/03/2024 8:30 AM EST Surgery ENDO OSS[facility], Endoscopy Room [facility] [place] [phone] Dallas Askew MD 132 [facility] [place] [address] COLONOSCOPY FLEXIBLE PROXIMAL DIAGNOSTIC 11/24/2024 2:30 PM EST Office Visit Cardiology, [facility] 132 [facility] [place] [address] Tracey Cole CRNP [address] [facility] [place] [address] 12/14/2024 8:40 AM EST Office Visit Family Practice [address] [place] [address] 293 [place] [address] Chelle Vasquez, DO 293 [place] [address] 01/03/2025 11:00 AM EDT [facility] [place] [address] Uriel Warren, DO 132 [facility] [place] [address] 02/11/2025 1:30 PM EDT Office Visit Dermatology [facility] 200 [place] [address] Juanito Browning MD 16 [place] [address] 02/17/2025 11:30 AM EDT Office Visit Cardiology, [facility] 132 [facility] [place] [address] Uriel Warren, DO 132 [facility] [place] [address] 02/17/2025 2:30 PM EDT Office Visit Hematology/Oncology [facility] [address] Leonarda Trevino CRNP [address] [facility] [place] [address] 03/23/2025 8:40 AM EDT Office Visit Pulmonary Medicine, [facility] 132 [facility] [place] [address] Marino Rodriguez MD [address] [place] [address] Scheduled Procedures Name Priority Associated Diagnoses Date/Ti [...] encounter Medical Devices Implanted Type Area Corporate Officer Device Identifier Shelf Expiration Date Model / Serial / Lot Marker Coronary [facility]-Sd - [id number] Implanted:Qty: 2 on 11/10/2015 by Jorge Colón MD at [place] [facility] N/A: Heart [employer] [facility]-SD / / [id number] Valve Heart Aortic Epic 25mm - [id number] - [id number] Implanted:Qty: 1 on 11/10/2015 by Jorge Colón MD at [place] [facility] N/A: Heart ST LENNY : CARDIOVASCULAR 03/05/2019 [id number] 5-00 / [id number] 1 / Sut Steel 6 M654g - [id number] Implanted:Qty: 4 on 11/10/2015 by Jorge Colón MD at OR [facility] N/A: Chest JNJ : [employer] M654G / / Lens Intraoc 16.5 - [id number] - [id number] Implanted:Qty: 1 on 08/22/2020 by Pola Lozano MD at OR [facility] Right: Eye BAUSCH & LOMB 02/09/2025 [id number] 5 / [id number] 39 / [id number] Lens Intraoc 16.0 - [id number] - [id number] Implanted:Qty: 1 on 09/05/2020 by Pola Lozano MD at OR [facility] Left: Eye BAUSCH & LOMB 02/09/2025 [id number] 0 / [id number] / [id number] Clip Quick 2.8mm 230cm - [id number] Implanted:Qty: 1 on 04/23/2021 by Dallas Askew MD at ENDOSCOPY [facility] Colon [employer] 12/11/2023 HX-202UR .A / / 13K Cath Thermodilution 6fr - [id number] Implanted:Qty: 1 on 04/09/2024 by Jose Cruz Hill DO at CARDIAC LABS [facility] [employer] [id number] 10/27/2025 [id number] / / [id number] Stent Xience Skypoint 3.25x15 - [id number] Implanted:Qty: 1 on 04/09/2024 by Jose Cruz Hill DO at CARDIAC LABS [facility] [employer]STELL[employer]OS LABS : VASCULAR DEVICES 01/04/2027 [id number] / / [id number] documented as of this encounter Advance Directives [...] Power of Attor baldev? No Care Teams Air Hole Driller Relationship Specialty Start Date End Date Chelle Vasquez DO 293 [place] [address] PCP - General Family Medicine 03/30/24 documented as of this encounter
--- OUTSIDE RECORDS SUMMARY | 2024-12-08 08:17 | External Medical Summary ---
Author Name Unknown Address Unknown Organization [facility] [address] [place] [address] Laboratory Report Ordering Provider Test Date Status ANABELL ROSENBERG 11/03/2024 07:59:28 Final Observation Date Value Abnormality Reference (Units ) Status WBC, Total 11/03/2024 07:59:28 6.00 4.00-10.8 0 (K/uL) Final RBC 11/03/2024 07:59:28 3.71 4.50-5.25 (M/uL) Final Hemoglobin 11/03/2024 07:59:28 11.6 Below low normal 14 .0-16.8 (g/dL) Final HCT 11/03/2024 07:59:28 36.2 Below low normal 40. 0-48.4 (%) Final MCV 11/03/2024 07:59:28 97.6 82.0-99.5 (fL) Final MCH 11/03/2024 07:59:28 31.3 27.0-34.0 (pg) Final MCHC 11/03/2024 07:59:28 32.0 32.0-36.0 (g/dL) Final RDW 11/03/2024 07:59:28 15.0 11.5-15.5 (%) Final Platelets 11/03/2024 07:59:28 330 140-400 (K /uL) Final MPV 11/03/2024 07:59:28 9.6 6.6-11.1 ( fL) Final Performing Location [facility] [place] [address]
--- OUTSIDE RECORDS SUMMARY | 2024-12-08 08:17 | External Medical Summary | Summary of Care ---
Author Name Unknown Organization [facility] Address [address] [facility] [place] [address] Phone [phone] Care Team Providers Care Services Account Manager Name Role Phone Pedro Chellejackeline Lazo DO Primary Care Provider [phone] Encounter Details Date Type Department Care Team (Late st Contact Info) Description 10/21/2024 Telephone OR O[facility], Operating Room [facility] [address] [place] [address] Dallas Askew MD [address] [place] [address] Allergies Active Allergy Reactions Criticality Noted Date Comments Allopurinol Rash 04/17/2020 Pollen 04/22/2012 Seasonal allergies Molds & Smuts 07/01/2022 documented as of this encounter (statuses as of 10/25/2024) Medications Fexofenadine HCl 180 MG Oral Tablet [...] Respimat 2.5 MCG/ACT Inhalation Aerosol Solution (Tiotropium [place] Monohydrate) Inhale 2 Puffs by mouth in [...] as of this encounter (statuses as of 10/25/2024) Active Problems Problem Noted Date Diagnosed Date [...] prox RCA 80% stenosis with placement of 3.54l34ei Xience Skypoint WEST, post-dilated with 3.5mm NC Balloon reducing stenosis to 0% with JAMES 3 flow Essential (primary) hypertension 12/08/2023 Hyperlipidemia 12/08/2023 Atherosclerosis of [place] co ronary artery without angina pectoris 12/08/2023 [...] as of this encounter (statuses as of 10/25/2024) Resolved Problems Problem Noted Date Diagnosed Date [...] as of this encounter (statuses as of 10/25/2024) Immunizations Name Administration Dates Next Due COVID-19 [...] Entry Date Author No 11/08/2015 5:21 PM EST Lavonne Milton RN documented in this encounter Miscellaneous Notes * Telephone Encounter - Vicki Reese OSA - 10/25/2024 1:29 PM EST Lmm JIM Acosta 10/25/2024 1:29 PM * Telephone Encounter - Gladys Wharton NA/UDC - 10/21/2024 12:32 PM EST Patient called in to get procedure rescheduled. Please give him a call back. documented in this encounter Plan of Treatment Upcoming Encounters Date Type Department Care Team (Latest Contact Info) Description 11/03/2024 8:00 AM EST Hospital Encounter ENDO OSSC, Endoscopy Room [facility] [address] [place] [phone] Dallas Askew MD [address] [place] [address] 11/03/2024 8:00 AM EST - 11/03/2024 8:30 AM EST Surgery ENDO O[facility], Endoscopy Room [facility] [address] [place] [phone] Dallas Askew MD [address] [place] [address] COLONOSCOPY FLEXIBLE PROXIMAL DIAGNOSTIC 11/24/2024 2:30 PM EST Office Visit Cardiology, [facility] [address] [place] [address] Tracey Coel CRNP [address] [place] [address] [place] [address] 12/14/2024 8:40 AM EST Office Visit Family Practice [address] [place] [address] 293 [place] [address] Chelle Vasquez, DO 293 [place] [address] 01/03/2025 11:00 AM EDT Office Visit Cardiology, [facility] 132 [facility] [place] [address] Uriel Warren, DO 132 [facility] [address] 02/11/2025 1:30 PM EDT Office Visit Dermatology [facility] 200 [facility] [place] [address] Juanito Browning MD 16 [place] [address] 02/17/2025 11:30 AM EDT Office Visit Cardiology, [facility] 132 [facility] [place] [address] Uriel Warren, DO 132 [facility] [address] 02/17/2025 2:30 PM EDT Office Visit Hematology/Oncology [facility] [address] [facility] [place] [phone] Leonarda Trevino CRNP [address] [place] [address] [place] [address] 03/23/2025 8:40 AM EDT Office Visit Pulmonary Medicine, [facility] 132 [facility] [place] [address] Marino Rodriguez MD [address] [place] [address] Scheduled Procedures Name Priority Associated Diagnoses Date/Ti [...] this encounter Medical Devices Implanted Type Area Metal Buffer Device Identifier Shelf Expiration Date Model / Serial / Lot Marker Coronary [facility]-Sd - [id number] Implanted:Qty: 2 on 11/10/2015 by Jorge Colón MD at [place] [facility] N/A: Heart Book&TableSEE [employer] AM-SD / / [id number] Valve Heart Aortic Epic 25mm - [id number] - [id number] Implanted:Qty: 1 on 11/10/2015 by Jorge Colón MD at [place] [facility] N/A: Heart ST LENNY : CARDIOVASCULAR 03/05/2019 [id number] 5-00 / [id number] 1 / Sut Steel 6 M654g - [id number] Implanted:Qty: 4 on 11/10/2015 by Jorge Colón MD at [place] [facility] N/A: Chest JNJ : [employer] M654G / / Lens Intraoc 16.5 - [id number] - [id number] Implanted:Qty: 1 on 08/22/2020 by Pola Lozano MD at OR [facility] Right: Eye BAUSCH & LOMB 02/09/2025 [id number] 5 / [id number] 39 / [id number] Lens Intraoc 16.0 - [id number] - [id number] Implanted:Qty: 1 on 09/05/2020 by Pola Lozano MD at OR [facility] Left: Eye BAUSCH & LOMB 02/09/2025 [id number] 0 / [id number] 35 / [id number] Clip Quick 2.8mm 230cm - [id number] Implanted:Qty: 1 on 04/23/2021 by Dallas Askew MD at ENDOSCOPY [facility] Colon [employer] 12/11/2023 HX-202UR .A / / 13K Cath Thermodilution 6fr - [id number] Implanted:Qty: 1 on 04/09/2024 by Jose Cruz Hill DO at CARDIAC LABS [facility] [employer]YLAN [id number] 10/27/2025 [id number] / / [id number] Stent Xience Skypoint 3.25x15 - [id number] Implanted:Qty: 1 on 04/09/2024 by Jose Cruz Hill DO at CARDIAC LABS [facility] [employer]LL[employer] LABS : VASCULAR DEVICES 01/04/2027 [id number] / / [id number] documented as of this encounter Advance Directives [...] Power of Attor baldev? No Care Teams Services Account Manager Relationship Specialty Start Date End Date Chelle Vasquez DO 293 [place] [address] PCP - General Family Medicine 03/30/24 documented as of this encounter
--- OUTSIDE RECORDS SUMMARY | 2024-12-08 08:17 | External Medical Summary | Summary of Care ---
Author Name Unknown Organization [facility] Address [address] [facility] [place] [address] Phone [phone] Care Team Providers Care Case Management Associate Name Role Phone JyotsnaMona montieljackeline Lazo DO Primary Care Provider Encounter Details Date Type Department Care Team (Late st Contact Info) Description 10/14/2024 Population Health External Data Unspecified Department Allergies Active Allergy Reactions Criticality Noted Date Comments Allopurinol Rash 04/17/2020 Pollen 04/22/2012 Seasonal allergies Molds & Smuts 07/01/2022 documented as of this encounter (statuses as of 10/19/2024) Medications Fexofenadine HCl 180 MG Oral Tablet [...] Respimat 2.5 MCG/ACT Inhalation Aerosol Solution (Tiotropium Orange Monohydrate) Inhale 2 Puffs by mouth in [...] as of this encounter (statuses as of 10/19/2024) Active Problems Problem Noted Date Diagnosed Date [...] prox RCA 80% stenosis with placement of 3.40o92di Xience Skypoint WEST, post-dilated with 3.5mm NC Balloon reducing stenosis to 0% with JAMES 3 flow Essential (primary) hypertension 12/08/2023 Hyperlipidemia 12/08/2023 Atherosclerosis of [place] co ronary artery without angina pectoris 12/08/2023 [...] as of this encounter (statuses as of 10/19/2024) Resolved Problems Problem Noted Date Diagnosed Date [...] as of this encounter (statuses as of 10/19/2024) Immunizations Name Administration Dates Next Due COVID-19 [...] 7:41 AM EST Sexual Orientation Straight 09/18/2022 7 :41 AM EST documented as of this encounter [...] EST Hospital Encounter ENDO [facility], Endoscopy Room [facility] [address] [place] [phone] Dallas Askew MD [address] [place] [address] 11/03/2024 8:00 AM EST - 11/03/2024 8:30 AM EST Surgery ENDO [facility], Endoscopy Room [facility] [address] [place] [phone] Dallas Askew MD [address] [place] [address] COLONOSCOPY FLEXIBLE PROXIMAL DIAGNOSTIC 12/14/2024 8:40 AM EST Office Visit Family [address] 293 [place] [address] Chelle Vasquez, DO 293 [facility] [place] [address] 01/03/2025 11:00 AM EDT Office Visit Cardiology, [facility] 132 [facility] [place] [address] Uriel Warren, DO 132 [facility] [place] [address] 02/11/2025 1:30 PM EDT Office Visit Dermatology [facility] 200 [place] [address] Juanito Browning MD 16 [place] [address] 02/17/2025 11:30 AM EDT Office Visit Cardiology [facility] 132 [facility] [place] [address] Uriel Warren, DO [address] [place] [address] 02/17/2025 2:30 PM EDT Office Visit Hematology/Oncology [facility] [place] [facility] [phone] Leonarda Trevino CRNP [address] [place] [address] 03/23/2025 8:40 AM EDT Office Visit Pulmonary Medicine, [facility] [address] [place] [address] Marino Rodriguez MD [address] [place] [address] Scheduled Procedures Name Priority Associated Diagnoses Date/Ti [...] this encounter Medical Devices Implanted Type Area Reprint Sorter Device Identifier Shelf Expiration Date Model / Serial / Lot Marker Coronary [facility]-Sd - [id number] Implanted:Qty: 2 on 11/10/2015 [place] [facility] [place] Heart [employer] [facility]-SD / / [id number] Valve Heart Aortic Epic 25mm - [id number] - [id number] Implanted:Qty: 1 on 11/10/2015 by Jorge Colón [place] [facility] [place]/A: Heart [facility] L[facility]NY : CARDIOVASCULAR 03/05/2019 [id number] 5-00 / [id number] / Sut Steel 6 M654g - [id number] Implanted:Qty: 4 on 11/10/2015 by Jorge Colón [place] [facility] [place]: Chest JNJ : [employer] M654G / / Lens Intraoc 16.5 - [id number] - [id number] Implanted:Qty: 1 on 08/22/2020 by Pola Lozano MD at OR [facility] Right: Eye [employer] 02/09/2025 [id number] 5 / [id number] / [id number] Lens Intraoc 16.0 - [id number] - [id number] Implanted:Qty: 1 on 09/05/2020 by Pola Lozano MD at OR [facility] Left: Eye [employer]USCH [employer] LOMB 02/09/2025 [id number] 0 / [id number] / [id number] Clip Quick 2.8mm 230cm - [id number] Implanted:Qty: 1 on 04/23/2021 by Dallas Askew MD at ENDOSCOPY [facility] Colon [employer] 12/11/2023 HX-202UR .A / / 13K Cath Thermodilution 6fr - [id number] Implanted:Qty: 1 on 04/09/2024 by Jose Cruz Hill DO [place] [facility] [place] [employer] [id number] 10/27/2025 [id number] / / [id number] Stent Xience Skypoint 3.25x15 - [id number] Implanted:Qty: 1 on 04/09/2024 by Jose Cruz Hill DO [place] [facility] [place] [employer] : VASCULAR DEVICES 01/04/2027 [id number] / / [id number] documented as of this encounter Advance Directives [...] Power of Attor baldev? No Care Teams Case Management Associate Relationship Specialty Start Date End Date Chelle Vasquez DO 293 [facility] [place] [address] PCP - General Family Medicine 03/30/24 documented as of this encounter
--- OUTSIDE RECORDS SUMMARY | 2024-12-08 08:17 | External Medical Summary | Summary of Care ---
Author Name Unknown Organization [facility] Address [address] [facility] [place] [address] Phone [phone] Care Team Providers Care Hhas Name Role Phone Chelle Hung DO Primary Care Provider Reason for Visit * Reason Onset Date Comments Medication Refill 10/31/2024 Encounter Details Date Type Department Care Team (Late st Contact Info) Description 10/31/2024 Refill Family Practice [address] [place] 293 [place] [address] Chelle Hung DO 293 [place] [address] Allergies Active Allergy Reactions Criticality Noted Date Comments Allopurinol Rash 04/17/2020 Pollen 04/22/2012 Seasonal allergies Molds & Smuts 07/01/2022 documented as of this encounter (statuses as of 11/01/2024) Medications Fexofenadine HCl 180 MG Oral Tablet [...] morning. 100 Tablet 3 06/08/20 24 Active Ventolin HFA 108 (90 Base) MCG/ACT Inhalation Aerosol Solution Inhale 2 Puffs by mouth as needed for Cough or Wheezing. 18 g 3 06/29/20 24 Active Lisinopril 10 MG Oral Tablet (Prinivil) Take 0.5 Tablets by mouth in the morning. 90 Tablet 3 06/29/20 24 Active Nitroglycerin 0.4 MG Sublingual Tablet Sublingual (Nitrostat) Place 1 Tablet under the tongue every 5 minutes as needed for Pain, Chest. up to 3 doses in 15 minutes 25 Tablet 11 07/22/2024 11:02 AM EDT 07/22/20 24 Active Atorvastatin Calcium 40 MG Oral Tablet (Lipitor) Take 1 Tablet by mouth in the morning. 100 Tablet 3 10/20/2024 1:36 PM EST 07/22/20 24 Active Fluticasone-Pedro meterol 115-21 MCG/ACT Inhalation Aerosol (Advair HFA) Inhale 2 Puffs by mouth in the morning and 2 Puffs before bedtime. 12 g 12 10/07/2024 5:38 PM EST 07/26/20 24 Active Additional Information Patient not taking.Reported on 09/27/2024 Fluticasone-Pedro meterol 115-21 MCG/ACT Inhalation Aerosol (Advair HFA) Inhale 2 Puffs by mouth in the morning and 2 Puffs before bedtime. 12 g 12 07/26/20 24 Active Additional Information Patient not taking.Reported on 09/27/2024 Spiriva Respimat 2.5 MCG/ACT Inhalation Aerosol Solution (Tiotropium Nicholls Monohydrate) Inhale 2 Puffs by mouth in the morning. 4 g 10 10/07/2024 5:38 PM EST 09/14/20 Active HumidifierIndic ations:Hodgkin lymphoma, unspecified [...] bedtime. 60 Tablet 5 11/01/19 25 Active Probenecid 500 MG Oral Tablet (Benemid) Take 1 Tablet by mouth in the morning and 1 Tablet before bedtime. 60 Tablet 5 03/23/20 24 025 Discontin ued(Refil l) documented as of this encounter (statuses as of 11/01/2024) Active Problems Problem Noted Date Diagnosed Date [...] prox RCA 80% stenosis with placement of 3.97u93ap Xience Skypoint WEST, post-dilated with 3.5mm NC Balloon reducing stenosis to 0% with JAMES 3 flow Essential (primary) hypertension 12/08/2023 Hyperlipidemia 12/08/2023 Atherosclerosis of [place] co ronary artery without angina pectoris 12/08/2023 [...] as of this encounter (statuses as of 11/01/2024) Resolved Problems Problem Noted Date Diagnosed Date [...] as of this encounter (statuses as of 11/01/2024) Immunizations Name Administration Dates Next Due COVID-19 [...] Miscellaneous Notes * Telephone Encounter - Chelle Hung DO - 11/01/2024 10:09 AM ESTSigned Prescriptions: Disp Refills Probenecid 500 MG Oral Tablet (Benemid) 60 Tab*5 Sig: Take 1 Tablet by mouth in the morning and 1 Tablet before bedtime. Authorizing Provider: CHELLE HUNG * Telephone Encounter - Krys Montoya RP - 11/01/2024 9:59 AM EST Pending Prescriptions: Disp Refills Probenecid 500 MG Oral Tablet (Benemid) 60 Tab*5 Sig: Take 1 Tablet by mouth in the morning and 1 Tablet before bedtime. documented in this encounter Plan of Treatment Upcoming Encounters Date Type Department Care Team (Latest Contact Info) Description 11/03/2024 10:40 AM EST Office Visit Pulmonary Medicine, [address] [place] [address] Marino Rodriguez MD [address] [place] [address] 11/24/2024 2:30 PM EST Office Visit Cardiology, [facility] 132 [place] [address] Tracey Cole CRNP [address] [place] [address] [place] [address] 12/14/2024 8:40 AM EST Office Visit Family Practice [address] [place] [address] 293 [place] [address] Chelle Hung DO 293 [facility] [place] [address] 01/03/2025 11:00 AM EDT Office Visit Cardiology, [facility] 132 [place] [address] Uriel Warren, DO 132 [place] [address] 02/11/2025 1:30 PM EDT Office Visit Dermatology [address] [place] [address] Juanito Browning MD 16 [place] [address] 02/17/2025 11:30 AM EDT Office Visit Cardiology, [facility] 132 [place] [address] Uriel Warren, DO 132 [facility] [address] 02/17/2025 2:30 PM EDT Office Visit Hematology/Oncology [address] [place] [address] Leonarda Trevino CRNP [address] [place] [address] 03/23/2025 8:40 AM EDT Office Visit Pulmonary Medicine, [facility] [address] [place] [address] Marino Rodriguez MD [address] [place] [address] 05/06/2025 8:00 AM EDT Hospital Encounter ENDO [facility], Endoscopy Room [facility] [address] [place] [phone] Dallas Askew MD [address] [place] [address] 05/06/2025 8:00 AM EDT - 05/06/2025 8:30 AM EDT [facility] [address] [place] [phone] Dallas Askew MD [address] [place] [address] COLONOSCOPY FLEXIBLE PROXIMAL DIAGNOSTIC Scheduled Procedures Name [...] this encounter Medical Devices Implanted Type Area Consolidator Device Identifier Shelf Expiration Date Model / Serial / Lot Marker Coronary [facility]-Sd - [id number] Implanted:Qty: 2 on 11/10/2015 by Jorge Colón [place] [facility] [place] Heart [employer] [facility]-SD / / [id number] Valve Heart Aortic Epic 25mm - [id number] - [id number] Implanted:Qty: 1 on 11/10/2015 by Jorge Colón MD [place] [facility] [place]/A: Heart ST LENNY : CARDIOVASCULAR 03/05/2019 [id number] 5-00 / [id number] 1 / Sut Steel 6 M654g - [id number] Implanted:Qty: 4 on 11/10/2015 by Jorge Colón MD [place] [facility] [place]: Chest JNJ : [employer] M654G / / Lens Intraoc 16.5 - [id number] - [id number] Implanted:Qty: 1 on 08/22/2020 by Pola Lozano MD at OR [facility] Right: Eye [employer]OM[employer] 02/09/2025 [id number] 5 / [id number] 39 / [id number] Lens Intraoc 16.0 - [id number] - [id number] Implanted:Qty: 1 on 09/05/2020 by Pola Lozano MD at OR [facility] Left: Eye [employer] LOMB 02/09/2025 [id number] 0 / [id number] / [id number] Clip Quick 2.8mm 230cm - [id number] Implanted:Qty: 1 on 04/23/2021 by Dallas Askew MD at ENDOSCOPY [facility] Colon [employer] 12/11/2023 HX-202UR .A / / 13K Cath Thermodilution 6fr - [id number] Implanted:Qty: 1 on 04/09/2024 by Jose Cruz Hill DO at [place] [facility] [place] [employer] [id number] 10/27/2025 [id number] / / [id number] Stent Xience Skypoint 3.25x15 - [id number] Implanted:Qty: 1 on 04/09/2024 by Jose Cruz Hill DO at [facility] [place] [employer] : VASCULAR DEVICES 01/04/2027 [id number] / / [id number] documented as of this encounter Advance Directives * Full Code (Latest Code Status on File) Date Activated Date Inactivated Comments 11/10/2015 2:16 PM 11/20/2015 6:31 PM This order re flects the patients wishes and were consensually agreed upon. * Full Code Date Activated Date Inactivated Comments 11/08/2015 7:24 PM 11/10/2015 6:41 AM This order reflects the patients wishes and were consensually agreed upon. Question Answer Comments Discussion of Advance Directives occurred with: Patient Does the patient have a Living Will? No Does the patient have Health Care Power of Attor baldev? No Care Teams Hhas Relationship Specialty Start Date End Date Chelle Hung DO 293 [facility] [place] [place] [address] PCP - General Family Medicine 03/30/24 documented as of this encounter
--- OUTSIDE RECORDS SUMMARY | 2024-12-08 08:17 | External Medical Summary | Summary of Care ---
Author Name Unknown Organization [facility] Address [address] [facility] [place] [address] Phone [phone] Care Team Providers Care Owner Manager Name Role Phone Pedro Chellejackeline Lazo DO Primary Care Provider [phone] Encounter Details Date Type Department Care Team (Late st Contact Info) Description 10/21/2024 Telephone OR [facility], Operating Room [facility] [address] [place] [address] Dallas Askew MD [address] [place] [address] Allergies Active Allergy Reactions Criticality Noted Date [...] Respimat 2.5 MCG/ACT Inhalation Aerosol Solution (Tiotropium [place] Monohydrate) Inhale 2 Puffs by mouth in [...] prox RCA 80% stenosis with placement of 3.94i07pl Xience Skypoint WEST, post-dilated with 3.5mm NC Balloon reducing stenosis to 0% with JAMES 3 flow Essential (primary) hypertension 12/08/2023 Hyperlipidemia 12/08/2023 Atherosclerosis of [place] co ronary artery without angina pectoris 12/08/2023 [...] Assessment Author No 11/08/2015 5:21 PM Lavonne Bremudez RN * Are you blind or do [...] encounter Miscellaneous Notes * Telephone Encounter - Sheree Malik OSA - 10/25/2024 2:19 PM EST Patient is returning a call to schedule please try him again * Telephone Encounter - Vicki Reese, JIM - 10/25/2024 1:29 PM EST [facility] JIM Acosta 10/25/2024 1:29 PM * Telephone Encounter - Gladys Wharton NA/GABO - 10/21/2024 12:32 PM EST Patient called in to get procedure rescheduled. Please give him a call back. documented in this encounter Plan of Treatment Upcoming Encounters Date Type Department Care Team (Latest Contact Info) Description 11/03/2024 8:00 AM EST Hospital Encounter ENDO [facility], Endoscopy Room [facility] [address] [place] [phone] Dallas Askew MD [address] [place] [address] 11/03/2024 8:00 AM EST - 11/03/2024 8:30 AM EST Surgery ENDO [facility], Endoscopy Room [facility] [address] [place] [phone] Dallas Askew MD [address] [place] [address] COLONOSCOPY FLEXIBLE PROXIMAL DIAGNOSTIC 11/24/2024 2:30 PM EST Office Visit Cardiology, [facility] 132 [place] [address] Tracey Cole CRNP 400 [facility] [place] [address] 12/14/2024 8:40 AM EST Office Visit Family Practice [address] [place] [address] 293 [place] [address] Chelle Vasquez, DO 293 [place] [address] 01/03/2025 11:00 AM EDT Office Visit Cardiology, [facility] 132 [place] [address] Uriel Warren, DO 132 [place] [address] 02/11/2025 1:30 PM EDT Office Visit Dermatology [facility] 200 [facility] [place] [address] Juanito Browning MD 16 [place] [address] 02/17/2025 11:30 AM EDT Office Visit Cardiology, [facility] 132 [facility] [address] Uriel Warren, DO 132 [place] [address] 02/17/2025 2:30 PM EDT Office Visit Hematology/Oncology [facility] 200 [facility] [place] [phone] Leonarda Trevino CRNP 400 [facility] [place] [address] 03/23/2025 8:40 AM EDT Office Visit Pulmonary Medicine, [facility] [address] [place] [address] Marino Rodriguez MD [address] [place] [address] Scheduled Procedures Name Priority Associated Diagnoses [...] this encounter Medical Devices Implanted Type Area [employer] Director Device Identifier Shelf Expiration Date Model / Serial / Lot Marker Coronary [facility]-Sd - [id number] Implanted:Qty: 2 on 11/10/2015 by Jorge Colón MD [place] [facility] [place] N/A: Heart [employer] [facility]-SD / / [id number] Valve Heart Aortic Epic 25mm - [id number] - [id number] Implanted:Qty: 1 on 11/10/2015 by Jorge Colón MD at [place] [facility] [place] N/A: Heart ST LENNY : CARDIOVASCULAR 03/05/2019 [id number] 5-00 / [id number] 1 / Sut Steel 6 M654g - [id number] Implanted:Qty: 4 on 11/10/2015 by Jorge Colón MD at [place] [facility] [place] N/A: Chest JNJ : [employer] M654G / / Lens Intraoc 16.5 - [id number] - [id number] Implanted:Qty: 1 on 08/22/2020 by Pola Lozano MD at OR [facility] Right: Eye [employer] 02/09/2025 [id number] 5 / [id number] 39 / [id number] Lens Intraoc 16.0 - [id number] - [id number] Implanted:Qty: 1 on 09/05/2020 by Pola Lozano MD at OR [facility] Left: Eye [employer]OM[employer] 02/09/2025 [id number] 0 / [id number] 35 / [id number] Clip Quick 2.8mm 230cm - [id number] Implanted:Qty: 1 on 04/23/2021 by Dallas Askew MD at ENDOSCOPY [facility] Colon [employer] 12/11/2023 HX-202UR .A / / 13K Cath Thermodilution 6fr - [id number] Implanted:Qty: 1 on 04/09/2024 by Jose Cruz Hill DO at [facility]ARD[facility] [place] [employer] [id number] 10/27/2025 [id number] / / [id number] Stent Xience Skypoint 3.25x15 - [id number] Implanted:Qty: 1 on 04/09/2024 by Jose Cruz Hill DO at [facility] [place] [employer] : VASCULAR DEVICES 01/04/2027 [id number] / / [id number] documented as of this encounter Advance Directives [...] Power of Attor baldev? No Care Teams Owner Manager Relationship Specialty Start Date End Date Chelle Vasquez DO 293 [place] [address] PCP - General Family Medicine 03/30/24 documented as of this encounter
--- OUTSIDE RECORDS SUMMARY | 2024-12-08 08:17 | External Medical Summary | Summary of Care ---
Author Name Unknown Organization [facility] Address [address] [facility] [place] [address] Phone [phone] Care Team Providers Care Financial Services Professional Name Role Phone Pedro Chellejackeline Lazo DO Primary Care Provider [phone] Encounter Details Date Type Department Care Team (Late st Contact Info) Description 10/21/2024 Telephone OR [facility], Operating Room [facility] [address] [place] [address] Dallas Askew MD [address] [place] [address] Allergies Active Allergy Reactions Criticality Noted Date Comments Allopurinol Rash 04/17/2020 Pollen 04/22/2012 Seasonal allergies Molds & Smuts 07/01/2022 documented as of this encounter (statuses as of 10/29/2024) Medications Fexofenadine HCl 180 MG Oral Tablet [...] Respimat 2.5 MCG/ACT Inhalation Aerosol Solution (Tiotropium [place] Monohydrate) Inhale 2 Puffs by mouth in [...] as of this encounter (statuses as of 10/29/2024) Active Problems Problem Noted Date Diagnosed Date [...] prox RCA 80% stenosis with placement of 3.31a33wf Xience Skypoint WEST, post-dilated with 3.5mm NC Balloon reducing stenosis to 0% with JAMES 3 flow Essential (primary) hypertension 12/08/2023 Hyperlipidemia 12/08/2023 Atherosclerosis of [place] ronary artery without angina pectoris [...] as of this encounter (statuses as of 10/29/2024) Resolved Problems Problem Noted Date Diagnosed Date [...] as of this encounter (statuses as of 10/29/2024) Immunizations Name Administration Dates Next Due COVID-19 [...] No 09/27/2024 Are you (or your family) aprli eless or worried that you might be [...] Telephone Encounter - Vicki Reese OSA - 10/29/2024 10:30 AM EST Scheduled * Telephone Encounter - Sheree Malik OSA - 10/25/2024 2:19 PM EST Patient is returning a call to schedule please try him again * Telephone Encounter - Vicki Reese OSA - 10/25/2024 1:29 PM EST Lmm JIM Acosta 10/25/2024 1:29 PM * Telephone Encounter - Gladys Wharton NA/UDC - 10/21/2024 12:32 PM EST Patient called in to get procedure rescheduled. Please give him a call back. documented in this encounter Plan of Treatment Upcoming Encounters Date Type Department Care Team (Latest Contact Info) Description 10/29/2024 2:00 PM EST Imaging Radiology [facility] [address] [place] [phone] 11/03/2024 8:00 AM EST Hospital Encounter ENDO O[facility], Endoscopy Room [facility] [address] [place] [phone] Dallas Askew MD [address] [place] [address] 11/03/2024 8:00 AM EST - 11/03/2024 8:30 AM EST Surgery ENDO [facility], Endoscopy Room [facility] 132 [facility] [place] [phone] Dallas [facility] [address] COLONOSCOPY FLEXIBLE PROXIMAL DIAGNOSTIC 11/03/2024 10:40 AM EST Office Visit Pulmonary Medicine, [facility] [place] [address] Marino Rodriguez MD [address] [facility] [place] [address] 11/24/2024 2:30 PM EST Office Visit Cardiology, [facility] 132 [facility] [place] [address] Tracey Cole CRNP 400 [facility] [place] [address] 12/14/2024 8:40 AM EST Office Visit Family Practice [address] [place] [address] 293 [place] [address] Chelle Vasquez, DO 293 [facility] [place] [address] 01/03/2025 11:00 AM EDT Office Visit Cardiology, [facility] [place] [address] Uriel Warren, DO 132 [facility] [address] 02/11/2025 1:30 PM EDT Office Visit Dermatology [facility] 200 [facility] [place] [address] Juanito Browning MD 16 [place] [address] 02/17/2025 11:30 AM EDT Office Visit Cardiology, [facility] 132 [facility] [place] [address] Uriel Warren DO 132 [facility] [address] 02/17/2025 2:30 PM EDT Office Visit Hematology/Oncology [facility] 200 [facility] [place] [address] Leonarda Trevino CRNP 400 [facility] [place] [address] 03/23/2025 8:40 AM EDT Office Visit Pulmonary Medicine, [facility] 132 [facility] [place] [address] Marino Rodriguez MD [address] [place] [facility] [place] [address] Scheduled Procedures Name Priority Associated Diagnoses Date/Ti [...] this encounter Medical Devices Implanted Type Area Fire Safety Manager Device Identifier Shelf Expiration Date Model / Serial / Lot Marker Coronary [facility]-Sd - [id number] Implanted:Qty: 2 on 11/10/2015 by Jorge Colón MD [place] [facility] N/A: Heart [employer]SEE [employer] [facility] / / [id number] Valve Heart Aortic Epic 25mm - [id number] - [id number] Implanted:Qty: 1 on 11/10/2015 by Jorge Colón MD at [place] [facility] N/A: Heart [facility] LENNY : CARDIOVASCULAR 03/05/2019 [id number] 5-00 / [id number] / Sut Steel 6 M654g - [id number] Implanted:Qty: 4 on 11/10/2015 by Jorge Colón MD at [place] [facility] N/A: Chest JNJ : [employer] M654G / / Lens Intraoc 16.5 - [id number] - [id number] Implanted:Qty: 1 on 08/22/2020 by Pola Lozano MD at OR [facility] Right: Eye [employer]USCH [employer] LOMB 02/09/2025 [id number] 5 / [id number] / [id number] Lens Intraoc 16.0 - [id number] - [id number] Implanted:Qty: 1 on 09/05/2020 by Pola Lozano MD at OR [facility] Left: Eye BAUSCH [employer] LOMB 02/09/2025 [id number] 0 / [id number] / [id number] Clip Quick 2.8mm 230cm - [id number] Implanted:Qty: 1 on 04/23/2021 by Dallas Askew MD at ENDOSCOPY [facility] Colon [employer] 12/11/2023 HX-202UR .A / / 13K Cath Thermodilution 6fr - [id number] Implanted:Qty: 1 on 04/09/2024 by Jose Cruz Hill DO at [facility]ARD[facility] [employer] DYLAN [id number] 10/27/2025 [id number] / / [id number] Stent Xience Skypoint 3.25x15 - [id number] Implanted:Qty: 1 on 04/09/2024 by Jose Cruz Hill DO at [facility] [employer] LABS : VASCULAR DEVICES 01/04/2027 [id number] / / [id number] documented as of this encounter Advance Directives [...] Power of Attor baldev? No Care Teams Financial Services Professional Relationship Specialty Start Date End Date Chelle Vasquez DO 293 [place] [place] [address] PCP - General Family Medicine 03/30/24 documented as of this encounter
--- OUTSIDE RECORDS SUMMARY | 2024-12-08 08:18 | External Medical Summary | Summary of Care ---
Author Name Unknown Organization [facility] Address [address] [facility] [place] [address] Phone [phone] Care Team Providers Care Caponizer Name Role Phone Chelle Vasquez DO Primary Care Provider Reason for Visit * Reason Onset Date Comments Order Request 10/08/2024 Encounter Details Date Type Department Care Team (Late st Contact Info) Description 10/08/2024 Telephone Gastroenterology, [facility] [address] [place] [address] Dallas Askew MD [address] [place] [address] Order Request Allergies Active Allergy Reactions Criticality Noted Date Comments Allopurinol Rash 04/17/2020 Pollen 04/22/2012 Seasonal allergies Molds & Smuts 07/01/2022 documented as of this encounter (statuses as of 10/08/2024) Medications Fexofenadine HCl 180 MG Oral Tablet [...] Respimat 2.5 MCG/ACT Inhalation Aerosol Solution (Tiotropium [place] Monohydrate) Inhale 2 Puffs by mouth in the morning. 4 g 10 10/07/2024 5:38 PM EST Active documented as of this encounter (statuses as of 10/08/2024) Active Problems Problem Noted Date Diagnosed Date [...] prox RCA 80% stenosis with placement of 3.67g25xj Xience Skypoint WEST, post-dilated with 3.5mm NC [...] as of this encounter (statuses as of 10/08/2024) Resolved Problems Problem Noted Date Diagnosed Date [...] as of this encounter (statuses as of 10/08/2024) Immunizations Name Administration Dates Next Due COVID-19 [...] Date Author No 11/08/2015 5:21 PM Lavonne Bermduez RN documented in this encounter Miscellaneous Notes * Telephone Encounter - Vicki Reese OSA - 10/08/2024 11:47 AM EST Pt is scheduled for colonoscopy for History of colon polyps [Z86.0100] and Family history of colonic polyps [Z83.719] Please place order JIM Acosta 10/08/2024 11:48 AM documented in this encounter Plan of Treatment Upcoming Encounters Date Type Department Care Team (Latest Contact Info) Description 11/03/2024 8:00 AM EST Hospital Encounter ENDO [facility], Endoscopy Room [facility] [address] [place] [address] Dallas Askew MD [address] [place] [address] 11/03/2024 8:00 AM EST - 11/03/2024 8:30 AM EST Surgery ENDO [facility], Endoscopy Room [facility] [address] [place] [address] Dallas Askew MD [address] [place] [address] COLONOSCOPY FLEXIBLE PROXIMAL DIAGNOSTIC 12/14/2024 8:40 AM EST Office Visit Family Practice [address] [place] [address] 293 [place] [address] Chelle Vasquez, DO 293 [facility] [place] [address] 01/03/2025 11:00 AM EDT Office Visit Cardiology, [facility] [address] [place] [address] Uriel Warren, DO [address] [place] [address] 02/11/2025 1:30 PM EDT Office Visit Dermatology [facility] 200 [place] [address] Juanito Browning MD 16 [place] [address] 02/17/2025 11:30 AM EDT Office Visit Cardiology, [facility] 132 [place] [address] Uriel Warren, DO 132 [facility] [address] 02/17/2025 2:30 PM EDT Office Visit Hematology/Oncology [facility] 200 [facility] [place] [phone] Leonarda Trevino CRNP 400 [place] [address] 03/23/2025 8:40 AM EDT Office Visit Pulmonary Medicine, [facility] 132 [place] [address] Marino Rodriguez MD [address] [place] [id number] Scheduled Procedures Name Priority Associated Diagnoses Date/Ti [...] this encounter Medical Devices Implanted Type Area Men'S Designer Device Identifier Shelf Expiration Date Model / Serial / Lot Marker Coronary [facility]-Sd - [id number] Implanted:Qty: 2 on 11/10/2015 by Jorge Colón MD at OR [facility] [place] N/A: Heart [employer] [facility]-SD / / [id number] Valve Heart Aortic Epic 25mm - [id number] - [id number] Implanted:Qty: 1 on 11/10/2015 by Jorge Colón MD at OR [facility] [place] N/A: Heart ST LENNY : CARDIOVASCULAR 03/05/2019 MET357-7 5-00 / [id number] / Sut Steel 6 M654g - [id number] Implanted:Qty: 4 on 11/10/2015 by Jorge Colón MD at OR [facility] [place] N/A: Chest JNJ : [employer] M654G / / Lens Intraoc 16.5 - [id number] - [id number] Implanted:Qty: 1 on 08/22/2020 by Pola Lozano MD at OR [facility] Right: Eye BAUSCH & LOMB 02/09/2025 [id number] 5 / [id number] 39 / [id number] Lens Intraoc 16.0 - [id number] - [id number] Implanted:Qty: 1 on 09/05/2020 by Pola Lozano MD at OR [facility] Left: Eye BAUSCH & LOMB 02/09/2025 [id number] 0 / [id number] 35 / [id number] Clip Quick 2.8mm 230cm - [id number] Implanted:Qty: 1 on 04/23/2021 by Dallas Askew MD at ENDOSCOPY [facility] Colon [employer] 12/11/2023 HX-202UR .A / / 13K Cath Thermodilution 6fr - [id number] Implanted:Qty: 1 on 04/09/2024 by Jose Cruz Hill DO at CARDIAC LABS [facility] [place] [employer] [id number] 10/27/2025 [id number] / / [id number] Stent Xience Skypoint 3.25x15 - [id number] Implanted:Qty: 1 on 04/09/2024 by Jose Cruz Hill DO at CARDIAC LABS [facility] [place] [employer]LL[employer] LABS : VASCULAR DEVICES 01/04/2027 [id number] / / [id number] documented as of this encounter Advance Directives [...] Power of Attor baldev? No Care Teams Caponizer Relationship Specialty Start Date End Date Chelle Vasquez DO 293 [facility] [place] [address] PCP - General Family Medicine 03/30/24 documented as of this encounter
--- OUTSIDE RECORDS SUMMARY | 2024-12-08 08:18 | External Medical Summary | Summary of Care ---
Author Name Unknown Organization [facility] Address [address] [facility] [address] Phone [phone] Care Team Providers Care Meat Blender Name Role Phone Chelle Vasquez DO Primary Care Provider Encounter Details Date Type Department Care Team (Late st Contact Info) Description 09/22/2024 Telephone Family Practice [address] [facility] [address] [place] [address] Chelle Vasquez DO [address] [place] [address] Allergies Active Allergy Reactions Criticality Noted Date Comments Allopurinol Rash 04/17/2020 Pollen 04/22/2012 Seasonal allergies Molds & Smuts 07/01/2022 documented as of this encounter (statuses as of 09/23/2024) Medications Fexofenadine HCl 180 MG Oral Tablet [...] OralDaily(Non-Specified), Only taking at bedtime, Reported on 09/17/2024 Probenecid 500 MG Oral Tablet (Benemid) Take [...] 2 Puffs before bedtime. 12 g 12 07/26/2024 2:37 PM EDT 4 Active Additional Information Patient not taking.Reported on 09/17/2024 Fluticasone-Pedro meterol 115-21 MCG/ACT Inhalation Aerosol (Advair HFA) Inhale 2 Puffs by mouth in the morning and 2 Puffs before bedtime. 12 g 12 4 Active Additional Information Patient not taking.Reported on 09/17/2024 Spiriva Respimat 2.5 MCG/ACT Inhalation Aerosol Solution (Tiotropium [place] Monohydrate) Inhale 2 Puffs by mouth in the morning. 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 Never true 09/18/20 23 Within the past 12 months, t he food you bought just didn't last and you didn't have money to get more. Never true 09/18/2023 Childcare Answer Date Recorded Do you feel overwhelmed with taking care of a child, family member or friend? No 09/18/2023 Does your family need help f inding childcare? (Household - for ages 0-17 years) Not on file 09/18/2023 Clothing Answer Date Recorded Have you been unable to get clothing when it was really needed? No 09/18/2023 Is your family able to get c lothes or diapers when needed? (Household - for ages 0-17 years) Not on file 09/18/2023 Personal Safety Answer Date Recorded Do you feel unsafe or have concerns for your saf ety? No 09/18/2023 Do you have concerns for you r family's safety? (Household - for ages 0-17 years) Not on file 09/18/2023 Utilities Answer Date Recorded Do you have trouble paying y our heating, water, or electric bill? No 09/18/2023 Is your family able to pay t he heat, water, or electric bill? (Household - for ages 0-17 years) Not on file 09/18/2023 Does your family have access to good internet? (Household - for ages 0-17 years) Not on file 09/18/2023 Employment Status Answer Date Recorded Are you unemployed or without regular income? No 09/18/2023 Does the household have a [facility] source of income? (Household - for ages 0-17 years) Not on file 09/18/2023 Social Connections Answer Date Recorded How often do you feel lonely or isolated from th ose around you? Never 09/18/2023 Financial Resource Strain Answer Date R ecorded Do you have any trouble payi ng for your medications, or do you think you might in the future? No 09/18/2023 Does your family have troubl e paying for medicine? (Household - for ages 0-17 years) Not on file 09/18/2023 Transportation Needs Answer Date Record ed READ ONLY Do you have troubl e getting a ride to medical visits or work? Never True 09/18/2023 Does your family have a hard time getting a ride to doctors visits? (Household - for ages 0-17 years) Not on file 09/18/2023 Has lack of transportation k ept you from medical appointments, meetings, work, or from getting things needed for daily living? Check all that apply. (Adult - for ages 18 years and over) Not on file 09/18/2023 Do you (or your family) have trouble finding or paying for a ride (transportation)? (Household - for ages 0-17 years) Not on file 09/18/2023 Housing Stability Answer Date Recorded Do you currently live in a s helter or have no steady place to sleep at night? No 09/18/2023 READ ONLY Do you think you a re at risk of becoming homeless? No 09/18/2023 Does your family worry about paying for your home or becoming homeless? (Household - for ages 0-17 years) Not on file 1 11/19/2022 Are you homeless or worried that you might be in the future? (Adult - for ages 18 years and over) Not on file Are you (or your family) april eless or worried that you might be in the future? (Household - for ages 0-17 years) Not on file Food Insecurity Answer Date Recorded Do you need food for this week? No 09/18/2023 Are you able to get enough f ood for your family? (Household - for ages 0-17 years) Not on file 09/18/2023 Does your family need food t his week? (Household - for ages 0-17 years) Not on file 09/18/2023 Do you always have enough fo od for your family? (Household - for ages 0-17 years) Not on file 09/18/2023 Sex and Gender Information Value Date Recorded [...] Telephone Encounter - Chelle Vasquez DO - 09/23/2024 10:15 AM EST Noted. * Telephone Encounter - Valerie Vargas LPN - 09/23/2024 10:00 AM EST Patient is discouraged about how he is doing post surgery, Did schedule office visit, is open to coming in to discuss. Thank you * Telephone Encounter - Chelle Vasquez DO - 09/22/2024 4:41 PM EST Please reach out to pt letting them know we received a call from cardiac rehab indicating a number of issues. Does he want to schedule to re-evaluate? * Telephone Encounter - Valerie King RN - 09/22/2024 10:42 AM EST Galo calling in from [facility] cardiac rehab. States pt was in today did a depression screening phQ9-today he scored a 9, when did couple months ago he only scored a 1. He said he had no thought of hurting himself. He had stents placed in March and thought he would be feeling better than he is-hasn't noted a large difference. His is also having some issues. He answered 0 to if he was feeling down,depressed or hopeless and 0 on having decreased interest/pleasure in doing things, 2 on having trouble falling or staying asleep or sleeping too much, 3 on feeling more tired/decreased energy, 1 on feeling bad about yourself, 1 on trouble concentrating, 2 on talking or moving more slowly or talkingso fast/fidgeting. Galo felt it was a significant change and just wanted Dr Vasquez to be aware socan f/u with it in the future. He has also increased his wait from when started 211 lb and today is225 lb-he was advised to talk with cardiology about this at his next appt-that isn't until 01/03/25.Galo states that when first started rehab he had a lot of pulmonary issues and had to get inhalers but feels that is better since he started. I see that he just saw Dr Vasquez 09/17/[address] Vasquez. documented in this encounter Plan of Treatment Upcoming Encounters Date Type Department Care Team (Latest Contact Info) Description 09/27/2024 1:40 PM EST Office Visit Family Practice [address] [place] [address] 293 [facility], [place] [address] Chelle Vasquez, 293 [facility] [address] 11/03/2024 8:00 AM EST Hospital Encounter ENDO [facility], Endoscopy Room [facility] [address] [place] [address] Dallas Askew MD [address] [place] [address] 11/03/2024 8:00 AM EST - 11/03/2024 8:30 AM EST Surgery ENDO [facility], Endoscopy Room [facility] [address] [place] [address] Dallas Askew MD [address] [place] [address] COLONOSCOPY FLEXIBLE PROXIMAL DIAGNOSTIC 11/18/2024 11:00 AM EST Office Visit Dermatology [facility] 200 [facility] [place] [address] Gladys Srivastava MD 200 [facility] [address] 12/14/2024 8:40 AM EST Office Visit Family [address] 293 [facility], [place] [address] Chelle Vasquez, DO [address] [place] [address] 01/03/2025 11:00 AM EDT Office Visit Cardiology, [facility] 132 [place] [address] Uriel Warren, DO 132 [place] [address] 02/11/2025 1:30 PM EDT Office Visit Dermatology [facility] 200 [facility] [address] Juanito Browning MD 16 [place] [address] 02/17/2025 11:30 AM EDT Office Visit Cardiology, [facility] 132 [place] [address] Uriel Warren, DO 132 [place] [address] 02/17/2025 2:30 PM EDT Office Visit Hematology/Oncology [facility] 200 [facility], [place] [phone] Leonarda Trevino CRNP [address] [place], [place] [address] [address] 03/23/2025 8:40 AM EDT Office Visit Pulmonary Medicine, [facility] 132 [facility] [place] [address] Marino Rodriguez MD [address] [place] [address] Scheduled Procedures Name Priority Associated Diagnoses Date/Ti [...] Zoster Vaccines Completed 03/18/2020, 10/27/2019 Pneumococcal Vaccine: 65+ Years Completed 08/03/2020, 07/13/2019 Hepatitis B Vaccine [...] this encounter Medical Devices Implanted Type Area Pottery Decorator Device Identifier Shelf Expiration Date Model / Serial / Lot Marker Coronary Am-Sd - [id number] Implanted:Qty: 2 on 11/10/2015 by Jorge Colón MD at OR [facility] N/A: Heart [employer] AM-[place] / / [id number] Valve Heart Aortic Epic 25mm - [id number] - [id number] Implanted:Qty: 1 on 11/10/2015 by Jorge Colón MD at OR [facility] N/A: Heart ST LENNY : CARDIOVASCULAR 03/05/2019 CMO674-9 5-00 / [id number] 1 / Sut Steel 6 M654g - [id number] Implanted:Qty: 4 on 11/10/2015 by Jorge Colón MD at OR [facility] N/A: Chest JNJ : [employer] M654G / / Lens Intraoc 16.5 - [id number] - [id number] Implanted:Qty: 1 on 08/22/2020 by Pola Lozano MD at OR [facility] Right: Eye [employer] 02/09/2025 [id number] 5 / [id number] 39 / [id number] Lens Intraoc 16.0 - [id number] - [id number] Implanted:Qty: 1 on 09/05/2020 by Pola Lozano MD at OR [facility] Left: Eye [employer]CH [employer] LOMB 02/09/2025 [id number] 0 / [id number] / [id number] Clip Quick 2.8mm 230cm - [id number] Implanted:Qty: 1 on 04/23/2021 by Dallas Askew MD at ENDOSCOPY [facility] Colon [employer] 12/11/2023 HX-202UR .A / / 13K Cath Thermodilution 6fr - [id number] Implanted:Qty: 1 on 04/09/2024 by Jose Cruz Hill DO at CARDIAC LABS [facility] [employer]AN [id number] 10/27/2025 [id number] / / [id number] Stent Xience Skypoint 3.25x15 - [id number] Implanted:Qty: 1 on 04/09/2024 by Jose Cruz Hill DO at CARDI[facility]S [facility] [employer]S : VASCULAR DEVICES 01/04/2027 [id number] / / [id number] documented as of this encounter Advance Directives [...] Power of Attor baldev? No Care Teams Meat Blender Relationship Specialty Start Date End Date Chelle Vasquez DO [address] [place] [address] PCP - General Family Medicine 03/30/24 documented as of this encounter
--- OUTSIDE RECORDS SUMMARY | 2024-12-08 08:18 | External Medical Summary | Summary of Care ---
Author Name Unknown Organization [facility] Address [address] [facility] [place] [address] Phone [phone] Care Team Providers Care Vp Client Services Name Role Phone Chelle Vasquez DO Primary Care Provider [phone] Reason for Visit * Reason Onset Date Comments Test Results 09/16/2024 Encounter Details Date Type Department Care Team (Late st Contact Info) Description 09/16/2024 Telephone Cardiology, [facility] [address] [place] [address] Uriel Warren DO [address] [place] [address] Test Results Allergies Active Allergy Reactions Criticality Noted Date Comments Allopurinol Rash 04/17/2020 Pollen 04/22/2012 Seasonal allergies Molds & Smuts 07/01/2022 documented as of this encounter (statuses as of 09/21/2024) Medications Fexofenadine HCl 180 MG Oral Tablet [...] 12 g 12 07/26/2024 2:37 PM EDT Active Additional Information Patient not taking.Reported on 09/17/2024 Fluticasone-Pedro meterol 115-21 MCG/ACT Inhalation Aerosol (Advair HFA) Inhale 2 Puffs by mouth in the morning and 2 Puffs before bedtime. 12 g 12 4 Active Additional Information Patient not taking.Reported on 09/17/2024 Spiriva Respimat 2.5 MCG/ACT Inhalation Aerosol Solution (Tiotropium Hesperus Monohydrate) Inhale 2 Puffs by mouth in the morning. 4 g 10 09/14/2024 11:14 AM EST Active documented as of this encounter (statuses as of 09/21/2024) Active Problems Problem Noted Date Diagnosed Date [...] prox RCA 80% stenosis with placement of 3.84q94uj Xience Skypoint WEST, post-dilated with 3.5mm NC Balloon reducing stenosis to 0% with JAMES 3 flow Essential (primary) hypertension 12/08/2023 Hyperlipidemia 12/08/2023 Atherosclerosis of [place] ronary artery without angina pectoris 12/08/2023 [...] as of this encounter (statuses as of 09/21/2024) Resolved Problems Problem Noted Date Diagnosed Date [...] as of this encounter (statuses as of 09/21/2024) Immunizations Name Administration Dates Next Due COVID-19 [...] No 09/18/2023 Does the household have a re gular [...] encounter Miscellaneous Notes * Telephone Encounter - Dee Dickerson CMA - 09/21/2024 11:16 AM EST MyG message not read. Called patient and left detailed message on voicemail. * Telephone Encounter - Dee Dickerson CMA - 09/16/2024 4:42 PM EST Sent MyG. Set to follow up in 48 hours if not read. * Telephone Encounter - Dee Dickerson CMA - 09/16/2024 4:41 PM EST ----- Message from Uriel Warren DO sent at 09/16/2024 4:30 PM EST ----- Stable basic metabolic panel. Continue current medications as directed. documented in this encounter Plan of Treatment Upcoming Encounters Date Type Department Care Team (Latest Contact Info) Description 11/03/2024 8:00 AM EST Hospital Encounter ENDO OSS[facility], Endoscopy Room [facility] [address] [place] [id number] Dallas Askew MD [address] [place] [address] 11/03/2024 8:00 AM EST - 11/03/2024 8:30 AM EST Surgery ENDO OSSC, Endoscopy Room [facility] [address] [place] [id number] Dallas Askew MD [address] [place] [address] COLONOSCOPY FLEXIBLE PROXIMAL DIAGNOSTIC 11/18/2024 11:00 AM EST Office Visit Dermatology [place] [address] [facility], [place] [address] Gladys Srivastava MD [address] [facility] [place], [place] [address] 12/14/2024 8:40 AM EST Office Visit [address] [place] [address] Chelle Vasquez, DO [address] [place] [address] 01/03/2025 11:00 AM EDT Office Visit Cardiology, [facility] [address] [place] [address] Uriel Warren, DO [address] [facility] [address] 02/11/2025 1:30 PM EDT Office Visit Dermatology [facility] [address] [facility] [place] [address] Juanito Browning MD [address] [place] [address] 02/17/2025 11:30 AM EDT Office Visit Cardiology, [facility] [address] [facility] [place] [address] Uriel Warren, DO [address] [facility] [address] 02/17/2025 2:30 PM EDT Office Visit Hematology/Oncology [facility] [address] [facility] [place], [place] [phone] Leonarda Trevino CRNP [address] [place] [address] [place] [address] 03/23/2025 8:40 AM EDT Office Visit Pulmonary Medicine, [facility] [address] [place] [address] Marino Rodriguez MD [address] [place] [address] Scheduled Procedures Name Priority Associated Diagnoses Date/Ti [...] this encounter Medical Devices Implanted Type Area Cement Finisher Helper Device Identifier Shelf Expiration Date Model / Serial / Lot Marker Coronary Amgm-Sd - [id number] Implanted:Qty: 2 on 11/10/2015 by Jorge Colón MD at OR [facility] N/A: Heart [employer] [facility] / / [id number] Valve Heart Aortic Epic 25mm - [id number] - [id number] Implanted:Qty: 1 on 11/10/2015 by Jorge Colón MD at OR [facility] N/A: Heart [facility] : CARDIOVASCULAR 03/05/2019 [id number] / [id number] / Sut Steel 6 M654g - [id number] Implanted:Qty: 4 on 11/10/2015 by Jorge Colón MD at OR [facility] [place] N/A: Chest JNJ : [employer] M654G / / Lens Intraoc 16.5 - [id number] - [id number] Implanted:Qty: 1 on 08/22/2020 by Pola Lozano MD at OR [facility] Right: Eye [employer] LOMB 02/09/2025 [id number] / [id number] / [id number] Lens Intraoc 16.0 - [id number] - [id number] Implanted:Qty: 1 on 09/05/2020 by Pola Lozano MD at OR [facility] Left: Eye [employer]OMB 02/09/2025 [id number] / [id number] / [id number] Clip Quick 2.8mm 230cm - [id number] Implanted:Qty: 1 on 04/23/2021 by Dallas Askew MD at ENDOSCOPY [facility] Colon [employer] 12/11/2023 [id number] .[id number] / / 13K Cath Thermodilution 6fr - [id number] Implanted:Qty: 1 on 04/09/2024 by Jose Cruz Hill DO at CARDIAC [facility]S [facility] [employer] [id number] 10/27/2025 [id number] / / [id number] Stent Xience Skypoint 3.25x15 - [id number] Implanted:Qty: 1 on 04/09/2024 by Jose Cruz Hill DO at CARDIAC [facility]S [facility] [place] [employer] : VASCULAR DEVICES 01/04/2027 [id number] / / [id number] documented as of this encounter Advance Directives [...] Power of Attor baldev? No Care Teams Vp Client Services Relationship Specialty Start Date End Date Chelle Vasquez DO [address] [place] [address] PCP - General Family Medicine 03/30/24 documented as of this encounter
--- OUTSIDE RECORDS SUMMARY | 2024-12-08 08:18 | External Medical Summary | Summary of Care ---
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 6 weeks . Mod. Persistent asthma. Doing much better with breathing. Stopped using his inhalers per patient x couple weeks. Encounter Details Date Type Department Care Team (Late st Contact Info) Description 09/14/2024 10:20 AM EST Office Visit Pulmonary Medicine, [facility] [address] [facility] [place] [address] Marino Rodriguez MD [address] [place] [phone] Moderate persistent asthma without complication* Allergies Active Allergy Reactions Criticality Noted Date Comments Allopurinol Rash 04/17/2020 Pollen 04/22/2012 Seasonal allergies Molds & Smuts 07/01/2022 documented as of this encounter (statuses as of 09/14/2024) Medications Fexofenadine HCl 180 MG Oral Tablet [...] OralDaily(Non-Specified), Only taking at bedtime, Reported on 09/14/2024 Probenecid 500 MG Oral Tablet (Benemid) Take 1 Tablet by mouth in the morning and 1 Tablet before bedtime. 60 Tablet 5 03/23/20 24 Active Aspirin 81 MG Oral Tablet Chewable [...] Wheezing. 18 g 3 06/29/20 24 Active Additional Information Patient not taking.Reported on 09/14/2024 Lisinopril 10 MG Oral Tablet (Prinivil) Take [...] in the morning. 100 Tablet 3 4 11:02 AM EDT 07/22/20 24 Active Fluticasone-Sa lmeterol 115-21 MCG/ACT Inhalation Aerosol (Advair HFA) Inhale 2 Puffs by mouth in the morning and 2 Puffs before bedtime. 12 g 12 4 2:37 PM EDT 07/26/20 24 Active Additional Information Patient not taking.Reported on 09/14/2024 Fluticasone-Sa lmeterol 115-21 MCG/ACT Inhalation Aerosol (Advair HFA) Inhale 2 Puffs by mouth in the morning and 2 Puffs before bedtime. 12 g 12 07/26/20 Active Additional Information Patient not taking.Reported on 09/14/2024 Spiriva Respimat 2.5 MCG/ACT Inhalation Aerosol Solution (Tiotropium [place] Monohydrate) Inhale 2 Puffs by mouth in the morning. 4 g 10 4 11:14 AM EST 09/14/20 Active Spiriva Respimat 2.5 MCG/ACT Inhalation Aerosol Solution (Tiotropium [place] Monohydrate) Inhale 2 Puffs by mouth in the morning. 4 g 4 2:37 PM EDT 07/26/20 24 024 Discontinued documented as of this encounter (statuses as of 09/14/2024) Active Problems Problem Noted Date Diagnosed Date [...] prox RCA 80% stenosis with placement of 3.69l02gs Xience Skypoint WEST, post-dilated with 3.5mm NC Balloon reducing stenosis to 0% with JAMES 3 flow Essential (primary) hypertension 12/08/2023 Hyperlipidemia 12/08/2023 Atherosclerosis of [place] co ronary artery without angina pectoris 12/08/2023 [...] as of this encounter (statuses as of 09/14/2024) Resolved Problems Problem Noted Date Diagnosed Date [...] as of this encounter (statuses as of 09/14/2024) Immunizations Name Administration Dates Next Due COVID-19 mRNA, LNP-s, No Pre serve, 2-Dose Series (Moderna) 02/08/2022,09/05/2021,12/10/2020,11/02 COVID-19, MRNA-LNP, PF, 50 M CG/0.5 mL, 12 YRS AND ABOVE, IM (MODERNA-Spikevax) 07/10/2023 Covid-19, Mrna, Lnp-s, Pf, B ivalent, 50 [...] Date Recorded PHQ Adult Total Score 0 10/02/2023 Hunger Vital Sign Answer Date Recorded Within [...] No 09/18/2023 Does the household have a [facility] source of income? (Household - for ages [...] Sign Reading Time Taken Comments Blood Pressure 138/78 09/14/2024 10:13 AM EST Pulse 95 09/14/2024 10:13 AM EST Temperature 36.1 C (97 F) 09/14/2024 10:13 AM EST Respiratory Rate 16 09/14/2024 10:13 AM EST Oxygen Saturation 96% 09/14/2024 10:14 AM EST ra-amb Inhaled Oxygen Concentration - - Weight 100.7 kg (222 lb) 09/14/2024 10:13 AM EST Height 170.2 cm (5' 7") 09/14/2024 10:13 AM EST Body Mass Index 34.77 09/14/2024 10:13 AM EST documented in this encounter Functional [...] Progress Notes * Marino Rodriguez MD - 09/14/2024 10:20 AM EST 09/14/2024 Pulmonary Medicine, [address] [phone] Michael Hughes 1955 male 69 year old Attending Physician Documentation: 69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 Recent flare-up of respiratory symptoms following visits to [facility] [place] Increased wheezing, cough, shortness of breath Completed prednisone taper with partial improvement Physical examination shows evidence of left upper chest radiation related skin changes, class 3 throat, adequate air entry in lung mcgrath anteriorly, diffuse coarse expiratory, decreased breath sounds right base with dullness. Allergic Asthma Moderate persistent Asthma without flare-up Hx of Post viral URI Plan: C/w Spiriva + Albuterol Plan to DC ICS due to thrush side effects Allergen screening profile reviewed, Avoidance precautions discussed Role of Biologic Therapy was discussed C/w 2 LPM oxygen q.h.s. Maintain physical activity status Call with change in respiratory symptoms status F/u 6 months Follow Up: Return in about 6 months (around 03/15/2025) for Clinic Visit. | For: Clinic Visit | Check-out note: Allergic Asthma Moderate persistent Asthma without flare-up Hx of Post viral URI Plan: C/w Spiriva + Albuterol Plan to DC ICS due to thrush side effects Allergen screening profile reviewed, Avoidance precautions discussed Role of Biologic Therapy was discussed C/w 2 LPM oxygen q.h.s. Maintain physical activity status Call with change in respiratory symptoms status F/u 6 months I spent a total of 40-54 minutes (exact time 35 mins) on the date of service in preparation, delivery, and documentation of the care provided to Michael Hughes excluding any time spent in the performance of separately billed services or time spent by another provider/QHP. Marino Rodriguez MD Data review: Following reports, and data as outlined below was personally reviewed and interpreted by myself. Component Latest Ref Rng 07/26/2024 IgE <=214.0 kU/L 274.0 (H) Legend: (H) High Component Latest Ref Rng 07/26/2024 Mite Pteronyssinus IgE <0.10 kUa/L 6.54 ! (Class 3) Mite Farinae IgE <0.10 kUa/L 9.08 ! (Class 3) Legend: ! (Class 3) Class 3: High Level Allergen Specific IgE Component Latest Ref Rng 07/26/2024 Bermuda Grass IgE <0.10 kUa/L 5.44 ! (Class 3) Ruben Grass IgE <0.10 kUa/L 11.60 ! (Class 3) Legend: ! (Class 3) Class 3: High Level Allergen Specific IgE Component Latest Ref [facility] [place] 07/26/2024 Converse Maple IgE <0.10 kUa/L 3.51 ! (Class 3) Birch IgE <0.10 kUa/L 0.99 ! (Class 2) [place] IgE <0.10 kUa/L 3.67 ! (Class 3) Elm IgE <0.10 kUa/L 3.77 ! (Class 3) Byars Tree IgE <0.10 kUa/L 3.32 ! (Class 2) Oxford IgE <0.10 kUa/L 2.38 ! (Class 2) White Cheyenne IgE <0.10 kUa/L 4.07 ! (Class 3) Pecan [place] IgE <0.10 kUa/L 2.42 ! (Class 2) Common Ragweed IgE <0.10 kUa/L 3.64 ! (Class 3) Mugwort IgE <0.10 kUa/L 2.53 ! (Class 2) Slovak Plantain IgE <0.10 kUa/L 2.93 ! (Class 2) Quintanilla's Quarter IgE <0.10 kUa/L 3.58 ! (Class 3) Cocklebur IgE <0.10 kUa/L 3.84 ! (Class 3) Pigweed IgE <0.10 kUa/L 3.43 ! (Class 2) Sheep [place] IgE <0.10 kUa/L 4.08 ! (Class 3) Legend: ! (Class 3) Class 3: High Level Allergen Specific IgE ! (Class 2) Class 2: Moderate Level Allergen Specific IgE Subjective CC: Chief Complaint Patient presents with Follow Up Return pulm. 6 weeks. Mod. Persistent asthma. Doing much better with breathing. Stopped using his inhalers per patient x couple weeks. HPI: Nursing Notes: Samia Mccurdy LPN 09/14/24 1020 Signed Chief Complaint Patient presents with Follow Up Return pulm. 6 weeks. Mod. Persistent asthma. Doing much better with breathing. Stopped using his inhalers per patient x couple weeks. Interm History/Respiratory Symptoms Cough: no Hemoptysis: no Sinus Symptoms: no Hospitalizations: no ED Trips: no Triggers: none Nocturnal: sleeps with head elevated. Has wedge. CPAP/BiPAP/O2: O2 at 2L at night-ordered . Not used it last couple weeks. Doesn't feel it has made difference DME Supplier: [employer]. Flu Vaccine: 2023 Pneumovax: 2019 Prevnar: 2016 COVID 19: x6. MMRC Dyspnea Scale = 3 (I stop for breath after walking about 100 yards or after a few minutes on ground level)-patient feels this is from his heart is in cardiac rehab. Objective Filed Vitals: 09/14/24 1013 09/14/24 1014 BP: 138/78 Pulse: 95 Resp: 16 Temp: 36.1 C (97 F) TempSrc: Tympanic SpO2: 96% 96% Weight: 100.7 kg (222 lb) Height: 1.702 m (5' 7") Exam: [...] is normal. Tests reviewed with the patient: PET CT SKULL BASE TO MID-THIGH FDG Result Date: 07/20/2024 IMPRESSION No FDG-avid disease. IR CHEST THORACENTESIS Result Date: 04/09/2024 IMPRESSION: Thoracentesis was not performed d/t inability to aspirate any pleural fluid. PLAN: Follow-up as needed for repeat thoracentesis for symptom management. CT CHEST W CONTRAST Result Date: 04/03/2024 IMPRESSION 1. Loculated right pleural effusion with associated round atelectasis. 2. Additional chronic findings, as above. XR CHEST 2 VIEWS Result Date: 03/23/2024 IMPRESSION 1. Moderately sized right pleural effusion. Underlying rounded opacity probably chronic rounded atelectasis, with other etiologies not excluded. Recommend further evaluation with CT chest,preferably with IV contrast provided there is no contraindication. Available Radiologic data was reviewed by me in PACS. The images were shown to the patient and findings were discussed with the patient. HOME MEDICATIONS: Spiriva Respimat 2.5 MCG/ACT Inhalation Aerosol Solution (Tiotropium [place] Monohydrate) Atorvastatin Calcium 40 MG Oral Tablet (Lipitor) Nitroglycerin 0.4 MG Sublingual Tablet Sublingual (Nitrostat) Ezetimibe 10 MG Oral Tablet (Zetia) Omeprazole 20 MG Oral Capsule Delayed Release (PriLOSEC) Amoxicillin 500 MG Oral Capsule (Amoxil) Aspirin 81 MG Oral Tablet Chewable Clopidogrel Bisulfate 75 MG Oral Tablet (pLAVix) Torsemide 20 MG Oral Tablet (Demadex) Probenecid 500 MG Oral Tablet (Benemid) Carvedilol 3.125 MG Oral Tablet (Coreg) Potassium Chloride ER 10 MEQ Oral Tablet Extended Release traMADol HCl 50 MG Oral Tablet (Ultram) Vitamin D 50 MCG (1999 UT) Oral Capsule Fexofenadine HCl 180 MG Oral Tablet Fluticasone-Salmeterol 115-21 MCG/ACT Inhalation Aerosol (Advair HFA) Fluticasone-Salmeterol 115-21 MCG/ACT Inhalation Aerosol (Advair HFA) Lisinopril 10 MG Oral Tablet (Prinivil) Ventolin HFA 108 (90 Base) MCG/ACT Inhalation Aerosol Solution ROS: No reported history of Hemoptysis, Hematemesis, [...] lateral neck - 2011 Hodgkin lymphoma (HCC) 1974, 1976, 1982 Past Surgical History: Procedure Laterality Date COLONOSCOPY, DIAGNOSTIC (RECTUM) 07/01/2017 benign polyp, fair prep, repeat 3 yrs/COLONOSCOPY FLEXIBLE PROXIMAL DIAGNOSTIC performed by Wagner Hernandez MD at ENDOSCOPY [facility] COLONOSCOPY, DIAGNOSTIC (RECTUM) 04/23/2021 adenomatous & hyperplastic polyps, diverticulosis, repeat 6-12 mo / COLONOSCOPY FLEXIBLE PROXIMAL DIAGNOSTIC performed by Dallas Askew MD at ENDOSCOPY [facility] COLONOSCOPY, DIAGNOSTIC (RECTUM) 10/22/2022 benign adenomatous & serrated adenomatous polyps, diverticulosis, repeat 6 mo / COLONOSCOPY FLEXIBLE PROXIMAL DIAGNOSTIC performed by Dallas Askew MD at ENDOSCOPY [facility] COLONOSCOPY, DIAGNOSTIC (RECTUM) 04/08/2023 hemorrhoids/diverticulosis/biopsies show adenomatous and hyperplastic polyps/recall 6 months/COLONOSCOPY FLEXIBLE PROXIMAL DIAGNOSTIC performed by Dallas Askew MD at ENDOSCOPY [facility] COLONOSCOPY, DIAGNOSTIC (RECTUM) 10/21/2023 diverticulosis/hemorrhoids/multiple polyps/biopsies show adenomatous and hyperplastic polyps/recall6 months/COLONOSCOPY FLEXIBLE PROXIMAL DIAGNOSTIC performed by Dallas Askew MD at ENDOSCOPY [facility] CORONARY ANGIOGRAPHY W/RIGHT+LEFT CATH N/A 04/09/2024 CORONARY ANGIOGRAPHY W/RIGHT+LEFT CATH performed by Jose Cruz Hill DO at CARDIAC LABS [facility] CORONARY ARTERIES BYPASS, TWO 11/10/2015 CORONARY ARTERY BYPASS GRAFT WITH 2 VEIN GRAFTS performed by Jorge Colón MD at [facility] ENDO,VIDEO ASSIST HARVEST KAROLINE 11/10/2015 ENDOSCOPY VIDEO ASSISTED HARVEST VEIN performed by Jorge Colón MD at [facility] REMOVE CATARACT, INSERT LENS PROSTH Right 08/22/2020 RIGHT EXTRACAPSULAR CATARACT REMOVAL WITH INTRAOCULAR LENS performed by Pola Lozano MD at [facility] REMOVE CATARACT, INSERT LENS PROSTH Left 09/05/2020 LEFT EXTRACAPSULAR CATARACT REMOVAL WITH INTRAOCULAR LENS performed by Pola Lozano MD at [facility] REPLACEMENT AORTIC VALVE, BYPASS WITH PROSTHETIC VALVE 11/10/2015 REPLACEMENT AORTIC VALVE performed by Jorge Colón MD at [facility] Social History Socioeconomic History Marital status: Tobacco Use Smoking status: Never Smokeless tobacco: Never Vaping Use Vaping status: Never Used Substance and Sexual Activity Alcohol use: Yes Comment: occ Drug use: No Social Needs Financial Resource Strain: Low Risk (09/18/2023) Financial Resource Strain Do you have any trouble paying for your medications, or do you think you might in the future? (Adult - for ages 18 years and over): No Food Insecurity: No Food Insecurity (09/18/2023) Food Insecurity Do you need food for this week? (Adult - for ages 18 years and over): No Transportation Needs: No Transportation Needs (09/18/2023) Transportation Needs Do you have trouble getting a ride to medical visits or work? (Adult - for ages 18 years and over):Never True Social Connections: Socially Integrated (09/18/2023) Social Connections How often do you feel lonely or isolated from those around you? (Adult - for ages 18 years and over): Never Housing Stability: Low Risk (09/18/2023) Housing Stability Do you currently live in a senior living or have no steady place to sleep at night? (Adult - for ages 18 years and over): No Do you think you are at risk [...] Nursing Notes * Samia Mccurdy LPN - 09/14/2024 10:16 AM EST Chief Complaint Patient presents with Follow Up Return pulm. 6 weeks. Mod. Persistent asthma. Doing much better with breathing. Stopped using his inhalers per patient x couple weeks. Interm History/Respiratory Symptoms Cough: no Hemoptysis: no Sinus Symptoms: no Hospitalizations: no ED Trips: no Triggers: none Nocturnal: sleeps with head elevated. Has wedge. CPAP/BiPAP/O2: O2 at 2L at night-ordered . Not used it last couple weeks. Doesn't feel it has made difference DME Supplier: [employer]. Flu Vaccine: 2023 Pneumovax: 2020 Prevnar: 2016 COVID 19: x6. MMRC Dyspnea Scale = 3 (I stop for breath after walking about 100 yards or after a few minutes on ground level)-patient feels this is from his heart is in cardiac rehab. documented in this encounter Plan of Treatment Upcoming Encounters Date Type Department Care Team (Latest Contact Info) Description 09/17/2024 2:20 PM EST Office Visit Family Practice [address] [place] [address] [facility], [place] [address] Chelle Vasquez, DO [address] [facility] [place], [place] [address] 11/03/2024 8:00 AM EST Hospital Encounter ENDO OSS, Endoscopy Room [facility] [address] [place] [phone] Dallas Askew MD [address] [place] [address] 11/03/2024 8:00 AM EST - 11/03/2024 8:30 AM EST Surgery ENDO OSSC, Endoscopy Room [facility] [address] [place] [phone] Dallas Askew MD [address] [facility] [place] [address] COLONOSCOPY FLEXIBLE PROXIMAL DIAGNOSTIC 11/18/2024 11:00 AM EST Office Visit Dermatology [facility] [address] [facility] [place] [address] Gladys Srivastava MD [address] [place] [address] 01/03/2025 11:00 AM EDT Office Visit Cardiology, [facility] [address] [place] [address] Ureil Warren, DO [address] [place] [address] 02/11/2025 1:30 PM EDT Office Visit Dermatology [facility] [address] [facility] [place] [address] Juanito Browning MD [address] [place] [address] 02/17/2025 11:30 AM EDT Office Visit Cardiology, [facility] [address] [facility] [place] [address] Uriel Warren O, DO [address] [facility] [address] 02/17/2025 2:30 PM EDT Office Visit Hematology/Oncology [facility] [address] [facility] [place], [place] [phone] Leonarda Trevino CRNP [address] [place] [address] [place] [id number] 03/23/2025 8:40 AM EDT Office Visit Pulmonary Medicine, [facility] [address] [facility] [place] [address] Marino Rodriguez MD [address] [facility] [facility] [place] [address] Scheduled Procedures Name Priority Associated Diagnoses Date/Ti me COLONOSCOPY FLEXIBLE PROXIMAL DIAGNOSTIC History of colon polyps Family history of colonic polyps 11/03/2024 8:00 AM EST Health Maintenance Due Date Last Done Comments Hepatitis C Screening 02/02/1973 Cologuard 1999 Fecal Occult Blood Test 1999 Sigmoidoscopy 1999 Adult Wellness Visit 02/02/2020 COVID-19 Vaccine ( season) 2024 07/10/2023, 08/23/2022, 02/08/2022, Additional history exists Depression Screening 10/02/2024 10/02/2023 HOME BP CUFF VALIDATION YEARLY 03/04/2025 03/04/2024 GFR 09/14/2025 09/14/2024, 06/13, 04/09/2024, Additional history exists Albumin/Creatinine Ratio 02/23/2027 02/24/2024 [...] this encounter Medical Devices Implanted Type Area Machine Filler Device Identifier Shelf Expiration Date Model / Serial / Lot Marker Coronary [facility] - [id number] Implanted:Qty: 2 on 11/10/2015 by Jorge Colón MD at OR [facility] N/A: Heart [employer] AM-SD / / [id number] Valve Heart Aortic Epic 25mm - [id number] - [id number] Implanted:Qty: 1 on 11/10/2015 by Jorge Colón MD at OR [facility] N/A: Heart [facility] : CARDIOVASCULAR 03/05/2019 [id number] 5-00 / [id number] / Sut Steel 6 M654g - [id number] Implanted:Qty: 4 on 11/10/2015 by Jorge Colón MD at OR [facility] N/A: Chest JNJ : [employer] M654G / / Lens Intraoc 16.5 - [id number] - [id number] Implanted:Qty: 1 on 08/22/2020 by Pola Lozano MD at OR [facility] Right: Eye [employer]OMB 02/09/2025 [id number] / [id number] / [id number] Lens Intraoc 16.0 - [id number] - [id number] Implanted:Qty: 1 on 09/05/2020 by Pola Lozano MD at OR [facility] Left: Eye [employer]CH [employer] LOMB 02/09/2025 [id number] / [id number] / [id number] Clip Quick 2.8mm 230cm - [id number] Implanted:Qty: 1 on 04/23/2021 by Dallas Askew MD at ENDOSCOPY [facility] Colon [employer] 12/11/2023 [id number] / / 13K Cath Thermodilution 6fr - [id number] Implanted:Qty: 1 on 04/09/2024 by Jose Cruz Hill DO at CARDIAC LABS [facility] [employer] [id number] 10/27/2025 [id number] / / [id number] Stent Xience Skypoint 3.25x15 - [id number] Implanted:Qty: 1 on 04/09/2024 by Jose Cruz Hill DO at CARDIAC LABS [facility] [employer] [facility] : VASCULAR DEVICES 01/04/2027 [id number] / / [id number] documented as of this encounter Visit Diagnoses Diagnosis Moderate persistent asthma without complication- Primary Unspecified asthma History of colon polyps Personal [...] Power of Attor baldev? No Care Teams Stockroom Worker Relationship Specialty Start Date End Date Chelle Vasquez DO [address] [place] [place] [address] PCP - General Family Medicine 03/30/24 documented as of this encounter
--- OUTSIDE RECORDS SUMMARY | 2024-12-08 08:18 | External Medical Summary | Summary of Care ---
Author Name Unknown Organization [facility] Address [address] [facility] [place] [address] Phone [phone] Care Team Providers Care Rib Knitter Name Role Phone Chelle Vasquez DO Primary Care Provider Reason for Visit * Reason Onset Date Comments Test Results 09/16/2024 Encounter Details Date Type Department Care Team (Late st Contact Info) Description 09/16/2024 Telephone Cardiology, [facility] [address] [place] [address] Uriel Warren DO [address] [place] [address] Test Results Allergies Active Allergy Reactions Criticality Noted Date Comments Allopurinol Rash 04/17/2020 Pollen 04/22/2012 Seasonal allergies Molds & Smuts 07/01/2022 documented as of this encounter (statuses as of 09/16/2024) Medications Fexofenadine HCl 180 MG Oral Tablet [...] or Wheezing. 18 g 3 4 Active Additional Information Patient not taking.Reported [...] Additional Information Patient not taking.Reported on 09/14/2024 Fluticasone-Pedro meterol 115-21 MCG/ACT Inhalation Aerosol (Advair HFA) Inhale 2 Puffs by mouth in the morning and 2 Puffs before bedtime. 12 g 12 Active Additional Information Patient not taking.Reported on 09/14/2024 Spiriva Respimat 2.5 MCG/ACT Inhalation Aerosol Solution (Tiotropium [place] Monohydrate) Inhale 2 Puffs by mouth in the morning. 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 * Telephone Encounter - Dee Dcikerson CMA - 09/16/2024 4:41 PM EST ----- Message from Uriel Warren DO sent at 09/16/2024 4:30 PM EST ----- Stable basic metabolic panel. Continue current medications as directed. documented in this encounter Plan of Treatment Upcoming Encounters Date Type Department Care Team (Latest Contact Info) Description 09/17/2024 2:20 PM EST Office Visit Family Practice [address] [place] [address] 293 [facility], [place] [address] Chelel Vasquez DO 293 [facility], [place] [address] 11/03/2024 8:00 AM EST Hospital Encounter ENDO OSSC, Endoscopy Room [facility] [address] [place] [phone] Dallas Askew MD [address] [place] [address] 11/03/2024 8:00 AM EST - 11/03/2024 8:30 AM EST Surgery ENDO O[facility]C, Endoscopy Room [facility] [address] [id number] Dallas Askew MD [address] [place] [address] COLONOSCOPY FLEXIBLE PROXIMAL DIAGNOSTIC 11/18/2024 11:00 AM EST Office Visit Dermatology [facility] [address] [place] [address] Gladys Srivastava MD 200 [facility] [place], [place] [address] 01/03/2025 11:00 AM EDT Office Visit Cardiology, [facility] [address] [facility] [place] [address] Uriel Warren, DO 132 [facility] [place] [address] 02/11/2025 1:30 PM EDT Office Visit Dermatology [facility] 200 [facility] [place], [place] [address] Juanito Browning MD [address] [place] [address] 02/17/2025 11:30 AM EDT Office Visit Cardiology, [facility] [address] [place] [address] Uriel Warren, DO [facility] [address] 02/17/2025 2:30 PM EDT Office Visit Hematology/Oncology [facility] 200 [facility] [place], [place] [address] Leonarda Trevino CRNP [address] [place] [address] [place] [address] 03/23/2025 8:40 AM EDT Office Visit Pulmonary Medicine, [facility] 132 [facility] [place] [address] Marino Rodriguez MD [address] [place] [address] Scheduled Procedures Name Priority Associated Diagnoses Date/Ti [...] this encounter Medical Devices Implanted Type Area Speedboat Driver Device Identifier Shelf Expiration Date Model / Serial / Lot Marker Coronary Am-Sd - [id number] Implanted:Qty: 2 on 11/10/2015 by Jorge Colón MD [place] [facility] [place]: Heart [employer] AM-SD / / [id number] Valve Heart Aortic Epic 25mm - [id number] - [id number] Implanted:Qty: 1 on 11/10/2015 by Jorge Colón MD [place] [facility] [place] N/A: Heart ST LENNY : CARDIOVASCULAR 03/05/2019 [id number] 5-00 / [id number] / Sut Steel 6 M654g - [id number] Implanted:Qty: 4 on 11/10/2015 by Jorge Colón MD [place] [facility] [place]/A: Chest JNJ : [employer] M654G / / Lens Intraoc 16.5 - [id number] - [id number] Implanted:Qty: 1 on 08/22/2020 by Pola Lozano MD at OR [facility] Right: Eye [employer] LOM[employer] 02/09/2025 [id number] 5 / [id number] / [id number] Lens Intraoc 16.0 - [id number] - [id number] Implanted:Qty: 1 on 09/05/2020 by Pola Lozano MD at OR [facility] Left: Eye BAUSCH [employer] LOMB 02/09/2025 [id number] 0 / [id number] / [id number] Clip Quick 2.8mm 230cm - [id number] Implanted:Qty: 1 on 04/23/2021 by Dallas Askew MD at ENDOSCOPY [facility] Colon [employer] 12/11/2023 HX-202UR .A / / 13K Cath Thermodilution 6fr - [id number] Implanted:Qty: 1 on 04/09/2024 by Jose Cruz Hill DO at [facility] [place] [employer] [id number] 10/27/2025 [id number] / / [id number] Stent Xience Skypoint 3.25x15 - [id number] Implanted:Qty: 1 on 04/09/2024 by Jose Cruz Hill DO at [facility] [employer] : VASCULAR DEVICES 01/04/2027 [id number] / / [id number] documented as of this encounter Advance Directives [...] Power of Attor baldev? No Care Teams Rib Knitter Relationship Specialty Start Date End Date Chelle Vasquez DO [address] [place] [address] PCP - General Family Medicine 03/30/24 documented as of this encounter
--- OUTSIDE RECORDS SUMMARY | 2024-12-08 08:18 | External Medical Summary | Summary of Care ---
Author Name Unknown Organization [facility] Address [address] [place] [address] Phone [phone] Care Team Providers Care Audio Production Engineer Name Role Phone Chelle Hung DO Primary Care Provider [phone] Reason for Referral * Ancillary Services (Within 30 days (routine)) - Authorized Specialty Diagnoses / Procedures Referred By Contac t Referred To Contact Gastroenterology Diagnoses Family history of colonic polyps History of colon polyps Chelle Hung DO [address] [place] [address] Phone: tel: fax: Referral ID Status Reason Start Date Expiration Date Visits Requested Visits Authorized [id number] Authorized Ancillary Services Required 4 [phone] Question Answer Referral Priority Within 30 days (routine) Where should this appointment be scheduled? [facility] Comments ALERT: Do not order for pediatric patients (18 years or younger). Cancel off screen and order PEDS GASTROENTEROLOGY CONSULT (Type: 1 visit only-Evaluate and Treat) The following Pt. Instructions are available: - Gastro Colonoscopy Prep Instructions [73897] - Gastro Colonoscopy Prep Instructions (Greek Version) [07492] Go to the Pt. Instructions section within the Visit Navigator to access. Colonoscopy ASGE Guidelines: Average risk screening (begin at age 50, 10 year intervals) and Postadenoma resection: 1-2 tubular adenomas of less than 1 cm (5 yr intervals) ADDITIONAL INFORMATION 1. Is the patient on Coumadin? No 2. Is the patient on Pradaxa? No Reason for Visit * Reason Onset Date Comments Order Request 10/08/2024 Encounter Details Date Type Department Care Team (Late st Contact Info) Description 10/08/2024 Telephone Gastroenterology, [facility] [address] [place] [address] Dallas Askew MD [address] [place] [address] Order Request Allergies Active Allergy Reactions Criticality [...] Respimat 2.5 MCG/ACT Inhalation Aerosol Solution (Tiotropium [place] Monohydrate) Inhale 2 Puffs by mouth in the morning. 4 g 10 10/07/2024 5:38 PM EST 4 Active documented as of this encounter [...] prox RCA 80% stenosis with placement of 3.04z72fq Xience Skypoint WEST, post-dilated with 3.5mm NC Balloon reducing stenosis to 0% with JAMES 3 flow Essential (primary) hypertension 12/08/2023 Hyperlipidemia 12/08/2023 Atherosclerosis of [place] co ronary artery without angina pectoris 12/08/2023 [...] documented in this encounter Miscellaneous Notes * Addendum Note - Chelle Hung DO - 10/08/2024 1:17 PM ESTAddended by: CHELLE HUNG on: 10/08/2024 01:17 PM Modules accepted: Orders * Telephone Encounter - Chelle Hung DO - 10/08/2024 1:17 PM EST Order signed. * Telephone Encounter - Vicki Reese OSA [...] EST Hospital Encounter ENDO OSS, Endoscopy Room [facility] [address] [place] [address] Dallas Askew MD [address] [place] [address] 11/03/2024 8:00 AM EST - 11/03/2024 8:30 AM EST Surgery ENDO O[facility], Endoscopy Room [facility] [address] [place] [phone] Dallas Askew MD [address] [place] [address] COLONOSCOPY FLEXIBLE PROXIMAL DIAGNOSTIC 12/14/2024 8:40 AM EST Office Visit Family Practice [address] [place] [address] 293 [place] [phone] Chelle Hung, DO 293 [place] [address] 01/03/2025 11:00 AM EDT Office Visit Cardiology, [facility] [address] [facility] [place] [address] Uriel Warren, DO 132 [facility] [place] [address] 02/11/2025 1:30 PM EDT Office Visit Dermatology [facility] 200 [place] [address] Juanito Browning MD [address] [place] [address] 02/17/2025 11:30 AM EDT Office Visit Cardiology, [facility] 132 [facility] [place] [address] Uriel Warren, 132 [facility] [place] [address] 02/17/2025 2:30 PM EDT Office Visit Hematology/Oncology [facility] 200 [place] [address] Leonarda Trevino CRNP [address] [facility] [place] [id number] 03/23/2025 8:40 AM EDT Office Visit Pulmonary Medicine, [facility] 132 [facility] [place] [address] Marino Rodriguez MD [address] [facility] [address] Scheduled Procedures Name Priority Associated Diagnoses Date/Ti me COLONOSCOPY FLEXIBLE PROXIMAL DIAGNOSTIC History of colon polyps Family history of colonic polyps 11/03/2024 8:00 AM EST Scheduled Referrals Name Type Priority Associated Diagnoses Orde r Schedule COLONOSCOPY, GI REFERRAL OP Referral Within 30 days (routine) Family history of colonic polyps History of colon polyps Ordered: 10/08/2024 Health Maintenance Due Date Last Done Comments [...] this encounter Medical Devices Implanted Type Area Book Reviewer Device Identifier Shelf Expiration Date Model / Serial / Lot Marker Coronary [employer]-Sd - [id number] Implanted:Qty: 2 on 11/10/2015 [place] [facility] [place] Heart [employer] [facility] / / [id number] Valve Heart Aortic Epic 25mm - [id number] - [id number] Implanted:Qty: 1 on 11/10/2015 by Jorge Colón [place] [facility] [place]/A: Heart ST LENNY : CARDIOVASCULAR 03/05/2019 [id number] 5-00 / [id number] / Sut Steel 6 M654g - [id number] Implanted:Qty: 4 on 11/10/2015 by [place] Colón [place] [facility] [place]: Chest JNJ : [employer] M654G / / Lens Intraoc 16.5 - [id number] - [id number] Implanted:Qty: 1 on 08/22/2020 by Pola Lozano MD at OR [facility] Right: Eye [employer]OMB 02/09/2025 [id number] 5 / [id number] 39 / [id number] Lens Intraoc 16.0 - [id number] - [id number] Implanted:Qty: 1 on 09/05/2020 by Pola Lozano MD at OR [facility] Left: Eye [employer]OMB 02/09/2025 [id number] 0 / [id number] / [id number] Clip Quick 2.8mm 230cm - [id number] Implanted:Qty: 1 on 04/23/2021 by Dallas Askew MD at ENDOSCOPY [facility] Colon [employer] 12/11/2023 HX-202UR .A / / 13K Cath Thermodilution 6fr - [id number] Implanted:Qty: 1 on 04/09/2024 by Jose Cruz Hill DO [place] [facility] [place] [employer] [id number] 10/27/2025 [id number] / / [id number] Stent Xience Skypoint 3.25x15 - [id number] Implanted:Qty: 1 on 04/09/2024 by Jose Cruz Hill DO [place] [place] [employer] : VASCULAR DEVICES 01/04/2027 [id number] / / [id number] documented as of this encounter Visit Diagnoses Diagnosis Family history of colonic polyps- Primary History of colon polyps Personal history of colonic polyps History of colon polyps Personal history of [...] Power of Attor baldev? No Care Teams Audio Production Engineer Relationship Specialty Start Date End Date Chelle Hung DO [address] [place] [address] PCP - General Family Medicine 03/30/24 documented as of this encounter
--- OUTSIDE RECORDS SUMMARY | 2024-12-08 08:18 | External Medical Summary | Summary of Care ---
Author Name Unknown Organization [facility] Address [address] [facility] [address] Phone [phone] Care Team Providers Care Research Investigator Name Role Phone Chelle Vasquez DO Primary Care Provider Reason for Visit * Reason Comments Follow Up Encounter Details Date Type Department Care Team (Late st Contact Info) Description 09/17/2024 2:20 PM EST Office Visit Family Practice [address] [place] [address] [place] [address] Chelle Vasquez DO [address] [place] [address] Moderate persistent asthma without complication*; Hematoma; Risk and functional assessment Allergies Active Allergy Reactions Criticality Noted Date Comments Allopurinol Rash 04/17/2020 Pollen 04/22/2012 Seasonal allergies Molds & Smuts 07/01/2022 documented as of this encounter (statuses as of 09/17/2024) Medications Fexofenadine HCl 180 MG Oral Tablet [...] Respimat 2.5 MCG/ACT Inhalation Aerosol Solution (Tiotropium Harvey Monohydrate) Inhale 2 Puffs by mouth in the morning. 4 g 10 09/14/2024 11:14 AM EST Active documented as of this encounter (statuses as of 09/17/2024) Active Problems Problem Noted Date Diagnosed Date [...] prox RCA 80% stenosis with placement of [id number] Xience Skypoint WEST, post-dilated with 3.5mm NC Balloon reducing stenosis to 0% with JAMES 3 flow Essential (primary) hypertension 12/08/2023 Hyperlipidemia 12/08/2023 Atherosclerosis of [place] co ronary artery without angina pectoris [...] as of this encounter (statuses as of 09/17/2024) Resolved Problems Problem Noted Date Diagnosed Date [...] as of this encounter (statuses as of 09/17/2024) Immunizations Name Administration Dates Next Due COVID-19 [...] Sign Reading Time Taken Comments Blood Pressure 120/68 09/17/2024 2:30 PM EST Pulse 96 09/17/2024 2:30 PM EST Temperature 36.4 C (97.5 F) 09/17/2024 2:30 PM ES T Respiratory Rate 14 09/17/2024 2:30 PM EST Oxygen Saturation 100% 09/17/2024 2:30 PM EST Inhaled Oxygen Concentration - - Weight 102.2 kg (225 lb 3.2 oz) 09/17/2024 2:30 PM EST Height 170.2 cm (5' 7") 09/17/2024 2:30 PM EST Body Mass Index 35.27 09/17/2024 2:30 PM EST documented in this encounter Functional Status * Are you deaf or do you have serious difficulty hearing? Answer Date of Assessment Author No 11/08/2015 5:21 PM EST Lavonne Milton RN * Are you blind or do you have serious difficulty seeing, even when wearing glasses? Answer Date of Assessment Author No 11/08/2015 5:21 PM EST Lavonne Milton RN * Do you have serious difficulty [...] Lavonne Bermudez RN documented in this encounter Patient Instructions * Patient Instructions* Rea Benitez LPN - 09/17/2024 2:27 PM EST Patient Instructions - Fall Prevention (This education is for all patients over 65 regardless of symptoms) Remember to take your current medications as prescribed. In order to prevent falls, you are encouraged to: Exercise Utilize assistive/adaptive devices Avoid multifocal lenses when walking Avoid hazards in home Maintain a regular toileting schedule Any questions please contact our office. Preventing Falls in the Home (This education is for all patients over 65 regardless of symptoms) As you get older, falls are more likely. Thats because your reaction time slows. Your muscles and joints may also get stiffer, making them less flexible. Illness, medications, and vision changes can also affect your balance. A fall could leave you unable to live on your own. To make your home safer, follow these tips: Floors Put nonskid pads under area rugs Remove throw rugs Replace worn floor coverings Tack carpets firmly to each step on carpeted stairs. Put nonskid strips on the edges of uncarpeted stairs Keep floors and stairs free of clutter and cords Arrange furniture so there are clear pathways Clean up any spills right away Bathrooms Install grab bars in the tub or shower Apply nonskid strips or put a nonskid rubber mat in the tub or shower Sit on a bath chair to bathe Use bathmats with nonskid backing Lighting Keep a flashlight in each room Put a nightlight along the pathway between the bedroom and the bathroom aKmryndiamond Patient Education Copyright 2008 - 2010 Jt except where otherwise noted Preventing Falls: Exercises to Improve Balance, Flexibility, Strength, and Staying Power (This education is for all patients over 65 regardless of symptoms) Certain types of exercises may help make you less likely to fall. Try the ones below. Or do other exercises that your healthcare provider suggests. Depending on your health, you may need to start slowly. Dont let that stop you. Even small amounts of exercise can help you. Be sure to talk to yourhealthcare provider before starting any exercise program. Improve Balance Many types of exercise can help improve balance. Hernando chi and yoga are good examples. Heres another one to try. You can do it anytime and almost anywhere. Stand next to a counter or solid support. Push yourself up onto your tiptoes. Hold for 5 seconds. If you start to lose your balance, hold on to the counter. Rest and repeat 5 times. Work up to holding for 20 to 30 seconds, if you can. Increase Flexibility Being more flexible makes it easier for you to move around safely. Try exercises like the seated hamstring stretch. Sit in a chair and put one foot on a stool. Straighten your leg and reach with both hands down either side of your leg. Reach as far down your leg as you can. Hold for about 20 seconds. Go back to the starting position. Then repeat 5 times. Switch legs. Build Strength Resistance exercises help build strength. You can do them without equipment. Or you can use weights, elastic bands, or special machines. One such exercise is called the biceps curl. You can hold a 1 pound weight or even a can of soup. Do this exercise at least 3 times a week. Strive for everyday. Sit up straight in a chair. Keep your elbow close to your body and your wrist straight. Bend your arm, moving your hand up to your shoulder. Then slowly lower your arm. Repeat 5 times. Switch to the other arm. Build Your Staying Power Aerobic exercises make your heart and lungs stronger so you can keep moving longer. Walking and swimming are two of the best types of exercises you can do. Using a stationary bike is great, too. Find an aerobic exercise that you enjoy. Start slowly and build up. Even 5 minutes is helpful. Aimfor a goal of 30 minutes, at least 3 times a week. You dont have to do 30 minutes in one session. Break it up and walk a little throughout the day. More Helpful Tips Start easy. Slowly work up to doing more. Talk with your healthcare provider about the best exercises for you. Call senior centers or health clubs about exercise programs. If needed, have a family member watch you walk every so often to check your stability. Exercise with a friend. Choose an activity you both enjoy. Try exercises that you can do anytime, anywhere. Here are two examples. Have someone with you when you first try these: Practice walking by placing one foot right in front of the other. Stand up and sit down 10 times. Repeat this throughout the day. Jt Patient Education Copyright 2008 - 2010 Jt except where otherwise noted. Preventing Falls: Moving Safely Using a Cane or Walker (This education is for all patients over 65 regardless of symptoms) Keep the cane away from your feet so you dont trip. A walking aid, such as a cane or walker, can help you stay more independent and avoid falls. Remember to keep your walking aid within easy reach when youre in a chair or in bed. And learn how to use it safely so you dont injure yourself. Using a Cane If you have a stronger side, hold the cane on that side. Get your balance. Move the cane and your weaker leg forward. Support your weight on both the cane and your weaker side. Step with your stronger leg. Start again from step 1. If youre using a folding walker, be sure you know how to lock it open. Check that its locked open before each use. Using a Walker Roll the walker (or lift it, if youre using one without wheels) forward about 12 inches. Step forward with your weaker leg first. Use the walker to help keep your balance. Bring your other foot forward to the center of the walker. Start again from step 1. Helpful Tips Check with your healthcare provider about the right walking aid to use. Ask about a walker with a seat attached. Check the tips of your cane or walker to make sure they have nonskid covers. Move slowly from room to room. Dont raygoza. Sit down to get dressed. Use a vero pack or backpack to keep your hands free. Get help for jobs that mean climbing, even on a stepstool. Kamryndiamond Patient Education Copyright 2008 - 2010 [employer] except where otherwise noted. Treating Urinary Incontinence in Men (This education is for all patients over 65 regardless of symptoms) You can't always control the release of urine. You may leak urine. Or you may not be able to hold your urine until you can get to a bathroom. This is called urinary incontinence. The problem can be managed. Talk to your doctor about your treatment options. Taking Medications Prescription medications may help you. They may: Help the sphincter to work better. (This is the muscle that closes to keep urine from leaking out of the bladder.) Help stop the bladder from dg too often to push urine out. Help the bladder muscles contract with more force. Help relax the sphincter muscle and allow urine to flow more freely. Making Changes to Your Routine Certain changes in your daily routine may help. These include: Avoiding caffeine and alcohol. Using timed voiding. This is following a schedule for drinking fluids and urinating. Doing Kegel exercises daily. These exercises involve tightening the muscles in your sphincter and around your bladder to help strengthen them. Your doctor can explain how to do them. Using a Catheter A catheter is a narrow tube that is inserted through the urethra into the bladder. It drains urine.A condom catheter covers the penis. It channels urine into a collection bag. It is worn most of thetime. Intermittent catheterization means inserting a catheter to drain the bladder, then removing it. This is done on a regular schedule. Having Surgery If other options don't work, surgery may be recommended. If surgery is an option, your healthcare provider can discuss it with you and explain its risks and benefits. Healing After Prostate Surgery Surgery on the prostate gland can cause incontinence. Most often, the incontinence is only for a short time. It clears up when healing is complete. Very rarely, prostate surgery can result in permanent incontinence. documented in this encounter Progress Notes * Chelle Vasquez, - 09/17/2024 2:23 PM EST SUBJECTIVE: Chief Complaint Patient presents with Follow Up HPI: Michael Hughes is a 69 year old male who presents today for regular return. Pt notes that he is overall doing ok. Did have allergy testing through pulmonary which shows a number of environmentalallergies. He feels that his breathing is ok. He stopped Advair due to thrush. He is on Spiriva. He notes that he has a bruise on his right back. No sure how he got it. Not bothersome. PHM: Patient Active Problem List Diagnosis Actinic keratosis Hodgkin lymphoma (HCC) Aortic stenosis S/P AVR (aortic valve replacement) History of nonmelanoma skin cancer MGUS (monoclonal gammopathy of unknown significance) History of therapeutic radiation Essential (primary) hypertension Hyperlipidemia Atherosclerosis of [place] coronary artery without angina pectoris Angina at rest (HCC) S/P drug eluting coronary stent placement Calculus of gallbladder without cholecystitis without obstruction Monoallelic mutation of MITF gene Current Outpatient Medications Medication Sig Dispense Refill Fexofenadine HCl 180 MG Oral Tablet Take 1 Tablet by mouth in the morning. Vitamin D 50 MCG (2000 UT) Oral Capsule Take 2,000 Units by mouth at bedtime. traMADol HCl 50 MG Oral Tablet (Ultram) Take 1 Tablet by mouth every 6 hours as needed. Potassium Chloride ER 10 MEQ Oral Tablet Extended Release Take 1 Tablet by mouth in the morning. Carvedilol 3.125 MG Oral Tablet (Coreg) Take 1 Tablet by mouth in the morning and 1 Tablet before bedtime. (Patient taking differently: Take 1 Tablet by mouth daily. Only taking at bedtime) 68 [id number] Probenecid 500 MG Oral Tablet (Benemid) Take 1 Tablet by mouth in the morning and 1 Tablet before bedtime. 60 Tablet 5 Aspirin 81 MG Oral Tablet Chewable Take 1 Tablet by mouth in the morning. Do not start before April 10, 2024. 90 Tablet 3 Torsemide 20 MG Oral Tablet (Demadex) Take 1 Tablet by mouth in the morning. 90 Tablet 3 Clopidogrel Bisulfate 75 MG Oral Tablet (pLAVix) Take 1 Tablet by mouth in the morning. Do not start before April 10, 2024. 90 Tablet 3 Amoxicillin 500 MG Oral Capsule (Amoxil) Take 4 Capsules by mouth daily as needed (dental appointments). Omeprazole 20 MG Oral Capsule Delayed Release (PriLOSEC) Take 1 Capsule by mouth at bedtime. 90 Capsule 3 Ezetimibe 10 MG Oral Tablet (Zetia) Take 1 Tablet by mouth in the morning. 100 Tablet 3 Ventolin HFA 108 (90 Base) MCG/ACT Inhalation Aerosol Solution Inhale 2 Puffs by mouth as needed for Cough or Wheezing. 18 g 3 Lisinopril 10 MG Oral Tablet (Prinivil) Take 0.5 Tablets by mouth in the morning. 90 Tablet 3 Nitroglycerin 0.4 MG Sublingual Tablet Sublingual (Nitrostat) Place 1 Tablet under the tongue every5 minutes as needed for Pain, Chest. up to 3 doses in 15 minutes 25 Tablet 11 Atorvastatin Calcium 40 MG Oral Tablet (Lipitor) Take 1 Tablet by mouth in the morning. 100 Tablet 3 Spiriva Respimat 2.5 MCG/ACT Inhalation Aerosol Solution (Tiotropium Harvey Monohydrate) Inhale 2 Puffs by mouth in the morning. 4 g 10 Fluticasone-Salmeterol 115-21 MCG/ACT Inhalation Aerosol (Advair HFA) Inhale 2 Puffs by mouth in the morning and 2 Puffs before bedtime. (Patient not taking: Reported on 09/17/2024) 12 g 12 Fluticasone-Salmeterol 115-21 MCG/ACT Inhalation Aerosol (Advair HFA) Inhale 2 Puffs by mouth in the morning and 2 Puffs before bedtime. (Patient not taking: Reported on 09/17/2024) 12 g 12 No current facility-administered medications for this visit. Past Medical History: Diagnosis Date Actinic keratosis [...] performed by Wagner Hernandez MD at ENDOSCOPY [facility] COLONOSCOPY, DIAGNOSTIC (RECTUM) 04/23/2021 adenomatous & hyperplastic polyps, diverticulosis, repeat 6-12 mo / COLONOSCOPY FLEXIBLE PROXIMAL DIAGNOSTIC performed by Dallas Askew MD at ENDOSCOPY [facility] COLONOSCOPY, DIAGNOSTIC (RECTUM) 10/22/2022 benign adenomatous & serrated adenomatous polyps, diverticulosis, repeat 6 mo / COLONOSCOPY FLEXIBLE PROXIMAL DIAGNOSTIC performed by Dallas Askew MD at ENDOSCOPY [facility] COLONOSCOPY, DIAGNOSTIC (RECTUM) 04/08/2023 hemorrhoids/diverticulosis/biopsies show adenomatous and hyperplastic polyps/recall 6 months/COLONOSCOPY FLEXIBLE PROXIMAL DIAGNOSTIC performed by Dallas Askew MD at ENDOSCOPY [facility] COLONOSCOPY, DIAGNOSTIC (RECTUM) 10/21/2023 diverticulosis/hemorrhoids/multiple polyps/biopsies show adenomatous and hyperplastic polyps/recall6 months/COLONOSCOPY FLEXIBLE PROXIMAL DIAGNOSTIC performed by Dallas Askew MD at ENDOSCOPY [facility] CORONARY ANGIOGRAPHY W/RIGHT+LEFT CATH N/A 04/09/2024 CORONARY ANGIOGRAPHY W/RIGHT+LEFT CATH performed by Jose Cruz Hill DO at [facility] CORONARY ARTERIES BYPASS, TWO 11/10/2015 CORONARY ARTERY BYPASS GRAFT WITH 2 VEIN GRAFTS performed by Jorge Colón MD at OR [facility] ENDO,VIDEO ASSIST HARVEST KAROLINE 11/10/2015 ENDOSCOPY VIDEO ASSISTED HARVEST VEIN performed by Jorge Colón MD at OR [facility] REMOVE CATARACT, INSERT LENS PROSTH Right 08/22/2020 RIGHT EXTRACAPSULAR CATARACT REMOVAL WITH INTRAOCULAR LENS performed by Pola Lozano MD at OR [facility] REMOVE CATARACT, INSERT LENS PROSTH Left 09/05/2020 LEFT EXTRACAPSULAR CATARACT REMOVAL WITH INTRAOCULAR LENS performed by Pola Lozano MD at OR [facility] REPLACEMENT AORTIC VALVE, BYPASS WITH PROSTHETIC VALVE 11/10/2015 REPLACEMENT AORTIC VALVE performed by Jorge Colón MD at OR [facility] Review of patient's allergies indicates: Allergen Reactions Allopurinol Rash Environmental [Pollen] Seasonal allergies Molds & Smuts Family History Problem Relation Name Age of [...] Heart disease Uncle (Maternal) Blood Disorder Child Family Status Relation Status Mo d. stroke Fa at age 87 Sis Alive, age 71y Bro Alive Bro Alive MGMA MGFA at age 81 PGMA PGFA at age 67 [place] Alive Son Alive AUNT pat. half-aunt MAUNT Alive PAUNT MUNC Child at age 1 d Social History Tobacco Use Smoking status: Never Smokeless tobacco: Never Substance Use Topics Alcohol use: Yes Comment: occ Vaping/E-Cigarette Use Vaping/E-Cigarette Use Never User Vaping/E-Cigarette Substances Vaping/E-Cigarette Devices REVIEW OF SYSTEMS: Review of Systems Constitutional: Negative for chills, fatigue, fever and unexpected weight change. Respiratory: Negative for cough, chest tightness, shortness of breath and wheezing. Cardiovascular: Negative for chest pain, palpitations and leg swelling. Gastrointestinal: Negative for abdominal pain, constipation, diarrhea, nausea and vomiting. Musculoskeletal: Negative for arthralgias, gait problem and joint swelling. Skin: Negative for color change, pallor and rash. As per HPI OBJECTIVE: BP 120/68 (BP Site: Left Arm, BP Position: Sitting, BP Cuff Size: Large) | Pulse 96 | Temp 97.5 F(36.4 C) (Tympanic) | Resp 14 | Ht 5' 7" (1.702 m) | Wt 225 lb 3.2 oz (102.2 kg) | SpO2 100% | BMI 35.27 kg/m | BSA 2.2 m PHYSICAL EXAM: Physical Exam Constitutional: General: He is not in acute distress. Appearance: He is well-developed. Cardiovascular: Rate and Rhythm: Normal rate and regular rhythm. Heart sounds: Normal heart sounds. No murmur heard. No friction rub. No gallop. Pulmonary: Effort: Pulmonary effort is normal. No respiratory distress. Breath sounds: Normal breath sounds. No wheezing or rales. Abdominal: General: Bowel sounds are normal. There is no distension. Palpations: Abdomen is soft. Tenderness: There is no abdominal tenderness. There is no guarding. Musculoskeletal: General: No tenderness or deformity. Normal range of motion. Skin: General: Skin is warm and dry. Coloration: Skin is not pale. Findings: Bruising (right mid back with lump noted) present. No erythema or rash. Neurological: Mental Status: He is alert and oriented to person, place, and time. ASSESSMENT/PLAN: (J45.40) Moderate persistent asthma without complication (primary encounter diagnosis) Plan: Pt will remain on current regimen. No changes for now. Continue to follow with pulmonary. (T14.8XXA) Hematoma Plan: Will take time to resolve. No changes. (Z13.9) Risk and functional assessment Plan: See nursing note. Follow-up: 3 months Total time today including reviewing chart before the visit, pertinent labs, imaging reports, face to face time, and documentation time was 34 minutes. Chelle Vasquez DO documented in this encounter Nursing Notes * Rea Benitez LPN - 09/17/2024 2:27 PM EST Patient here for follow up visit. Would like to discuss results of allergy testing. States he has alarge bruise on right shoulder blade. documented in this encounter Plan of Treatment Upcoming Encounters Date Type Department Care Team (Latest Contact Info) Description 11/03/2024 8:00 AM EST Hospital Encounter ENDO [facility], Endoscopy Room [facility] [address] [place] [id number] Dallas Askew MD [address] [place] [address] 11/03/2024 8:00 AM EST - 11/03/2024 8:30 AM EST Surgery ENDO [facility], Endoscopy Room [facility] [address] [place] [phone] Dallas Askew MD [address] [place] [address] COLONOSCOPY FLEXIBLE PROXIMAL DIAGNOSTIC 11/18/2024 11:00 AM EST Office Visit Dermatology [facility] [address] [facility] [place] [address] Gladys Srivastava MD [address] [facility] [address] 12/14/2024 8:40 AM EST Office Visit Family Practice [address] [place] [address] [address] [facility] [place], [place] [address] Chelle Vasquez, DO [address] [place] [address] 01/03/2025 11:00 AM EDT Office Visit Cardiology, [facility] [address] [facility] [place] [address] Uriel Warren, DO [address] [facility] [place] [address] 02/11/2025 1:30 PM EDT Office Visit Dermatology [facility] [address] [facility] [place], [place] [address] Juanito Browning MD [address] [place] [address] 02/17/2025 11:30 AM EDT Office Visit Cardiology, [facility] [address] [facility] [place] [address] Uriel Warren, DO [address] [facility] [place] [address] 02/17/2025 2:30 PM EDT Office Visit Hematology/Oncology [facility] [address] [facility] [place] [id number] Leonarda Trevino CRNP [address] [place] [address] [place] [address] 03/23/2025 8:40 AM EDT Office Visit Pulmonary Medicine, [facility] [address] [facility] [place] [address] Marino Rodriguez MD [address] [place] [address] Scheduled Procedures Name Priority Associated Diagnoses Date/Ti me COLONOSCOPY FLEXIBLE PROXIMAL DIAGNOSTIC History of colon polyps Family history of colonic polyps 11/03/2024 8:00 AM EST Health Maintenance Due Date Last Done Comments Cologuard 1999 Fecal Occult Blood Test 1999 Sigmoidoscopy 1999 Adult Wellness Visit 02/02/2020 Hepatitis C Screening 09/18/2024 Postpo angie from 02/02/1972 (Patient Declined After [...] this encounter Medical Devices Implanted Type Area Physician Intensivist Device Identifier Shelf Expiration Date Model / Serial / Lot Marker Coronary [facility] - [id number] Implanted:Qty: 2 on 11/10/2015 by Jorge Colón MD at OR [facility] N/A: Heart [employer] [facility] / / [id number] Valve Heart Aortic Epic 25mm - [id number] - [id number] Implanted:Qty: 1 on 11/10/2015 by Jorge Colón MD at OR [facility] N/A: Heart [facility] : CARDIOVASCULAR 03/05/2019 [id number] 5-00 / [id number] / Sut Steel 6 M654g - [id number] Implanted:Qty: 4 on 11/10/2015 by Jorge Colón MD at OR [facility] N/A: Chest JNJ : [employer] M654G / / Lens Intraoc 16.5 - [id number] - [id number] Implanted:Qty: 1 on 08/22/2020 by Pola Lozano MD at OR [facility] Right: Eye [employer] 02/09/2025 [id number] / [id number] / [id number] Lens Intraoc 16.0 - [id number] - [id number] Implanted:Qty: 1 on 09/05/2020 by Pola Lozano MD at OR [facility] Left: Eye [employer] 02/09/2025 [id number] 0 / [id number] / [id number] Clip Quick 2.8mm 230cm - [id number] Implanted:Qty: 1 on 04/23/2021 by Dallas Askew MD at ENDOSCOPY [facility] Colon [employer] 12/11/2023 [id number] / / 13K Cath Thermodilution 6fr - [id number] Implanted:Qty: 1 on 04/09/2024 by Jose Cruz Hill DO at [facility] [employer] [id number] 10/27/2025 [id number] / / [id number] Stent Xience Skypoint 3.25x15 - [id number] Implanted:Qty: 1 on 04/09/2024 by Jose Cruz Hill DO at [facility] [employer] [facility] : VASCULAR DEVICES 01/04/2027 [id number] / / [id number] documented as of this encounter Visit Diagnoses Diagnosis Moderate persistent asthma without complication- Primary Unspecified asthma Hematoma Contusion of unspecified site Risk and functional assessment Screening for unspecified condition History of colon polyps Personal history of [...] Power of Attor baldev? No Care Teams Research Investigator Relationship Specialty Start Date End Date Chelle Vasquez DO [address] [place] [address] PCP - General Family Medicine 03/30/24 documented as of this encounter
--- OUTSIDE RECORDS SUMMARY | 2024-12-08 08:18 | External Medical Summary | Summary of Care ---
Author Name Unknown Organization [facility] Address [address] [place] [place] [address] Phone [phone] Care Team Providers Care Mail Order Biller Name Role Phone Chelle Vasquez DO Primary Care Provider Reason for Visit * Reason Comments Follow Up Encounter Details Date Type Department Care Team (Latest Contact Info) Description 09/27/2024 1:40 PM EST Office Visit Family Practice [address] [facility], [place] [address] [place] [address] Chelle Vasquez DO [address] [place] [address] Atherosclerosis of [place] coronary artery of [place] heart without angina pectoris*; S/P drug eluting coronary stent placement; S/P AVR (aortic valve replacement); Malaise and fatigue Allergies Active Allergy Reactions Criticality Noted Date Comments Allopurinol Rash 04/17/2020 Pollen 04/22/2012 Seasonal allergies Molds & Smuts 07/01/2022 documented as of this encounter (statuses as of 09/28/2024) Medications Fexofenadine HCl 180 MG Oral Tablet [...] 2.5 MCG/ACT Inhalation Aerosol Solution (Tiotropium [place] Monohydrate) Inhale 2 Puffs by mouth in the morning. 4 g 10 09/14/2024 11:14 AM EST Active documented as of this encounter (statuses as of 09/28/2024) Active Problems Problem Noted Date Diagnosed Date [...] prox RCA 80% stenosis with placement of [id number] Xience Skypoint WEST, post-dilated with 3.5mm NC Balloon reducing stenosis to 0% with JAMES 3 flow Essential (primary) hypertension 12/08/2023 Hyperlipidemia 12/08/2023 Atherosclerosis of [place] co ronary artery without angina pectoris 12/08/2023 [...] as of this encounter (statuses as of 09/28/2024) Resolved Problems Problem Noted Date Diagnosed Date [...] as of this encounter (statuses as of 09/28/2024) Immunizations Name Administration Dates Next Due COVID-19 [...] No 09/27/2024 Does the household have a [facility] source of income? (Household - for ages [...] Sign Reading Time Taken Comments Blood Pressure 116/64 09/27/2024 1:46 PM EST Pulse 92 09/27/2024 1:46 PM EST Temperature 36.3 C (97.4 F) 09/27/2024 1:46 PM ES T Respiratory Rate 14 09/27/2024 1:46 PM EST Oxygen Saturation 100% 09/27/2024 1:46 PM EST Inhaled Oxygen Concentration - - Weight 102.7 kg (226 lb 6.4 oz) 09/27/2024 1:46 PM EST Height 170.2 cm (5' 7") 09/27/2024 1:46 PM EST Body Mass Index 35.46 09/27/2024 1:46 PM EST documented in this encounter Functional [...] this encounter Progress Notes * Chelle Vasquez, DO - 09/27/2024 1:54 PM EST SUBJECTIVE: Chief Complaint Patient presents with Follow Up HPI: Michael Hughes is a 69 year old male who presents today for follow-up. We had received notice from cardiac rehab that his depression screen had worsened and he had weight mark while at the program. Pt really unsure why he is here. Pt notes that he is disappointed he is not feeling better than he does. He notes significant fatigue. He does not feel he can go any distance without having to stop secondary to fatigue. He may have to catch is breath at times. He feels he has to nap in the afternoon. Will nap a couple of hours. gives example that they cannot even go window shopping or walking in a city as he cannot do so. She states they were crossing a street in [place] and he had to stop part way across and looked white. He notes it was extreme fatigue. She does note, however, he can putter around the house withoutany issue. Pt does not feel he is depressed though has had some sleep and appetite changes. He doesnot feel albuterol has made a difference for him in these scenarios. He can be dizzy. Does not think that he gets palpitations. He notes he is generally frustrated. Pt is to be on oxygen a night but does not wear regularly. He thinks being off of testosterone may play a role though notes that this has gone on much longer than this. He notes that neuropathy keeps him up at night. PHM: Patient Active Problem List Diagnosis Actinic keratosis Hodgkin lymphoma (HCC) Aortic stenosis S/P AVR (aortic valve replacement) History of nonmelanoma skin cancer MGUS (monoclonal gammopathy of unknown significance) History of therapeutic radiation Essential (primary) hypertension Hyperlipidemia Atherosclerosis of [place] coronary artery without angina pectoris Angina at [...] mouth daily. Only taking at bedtime) 68 [id number] Probenecid 500 MG Oral Tablet (Benemid) Take [...] 2.5 MCG/ACT Inhalation Aerosol Solution (Tiotropium [place] Monohydrate) Inhale 2 Puffs by mouth in the morning. 4 g 10 Fluticasone-Salmeterol 115-21 MCG/ACT Inhalation Aerosol (Advair HFA) Inhale 2 Puffs by mouth in the morning and 2 Puffs before bedtime. (Patient not taking: Reported on 09/14/2024) 12 g 12 Fluticasone-Salmeterol 115-21 MCG/ACT Inhalation Aerosol (Advair HFA) Inhale 2 Puffs by mouth in the morning and 2 Puffs before bedtime. (Patient not taking: Reported on 09/14/2024) 12 g 12 No current facility-administered medications [...] performed by Wagner Hernandez MD at ENDOSCOPY [facility] COLONOSCOPY, DIAGNOSTIC (RECTUM) 04/23/2021 adenomatous & hyperplastic polyps, diverticulosis, repeat 6-12 mo / COLONOSCOPY FLEXIBLE PROXIMAL DIAGNOSTIC performed by Dallas Askew MD at ENDOSCOPY [facility] COLONOSCOPY, DIAGNOSTIC (RECTUM) 10/22/2022 benign adenomatous & serrated adenomatous polyps, diverticulosis, repeat 6 mo / COLONOSCOPY FLEXIBLE PROXIMAL DIAGNOSTIC performed by Dallas Askew MD at ENDOSCOPY [facility] COLONOSCOPY, DIAGNOSTIC (RECTUM) 04/08/2023 hemorrhoids/diverticulosis/biopsies show adenomatous and hyperplastic polyps/recall 6 months/COLONOSCOPY FLEXIBLE PROXIMAL DIAGNOSTIC performed by Dallas Askew MD at ENDOSCOPY [facility] COLONOSCOPY, DIAGNOSTIC (RECTUM) 10/21/2023 diverticulosis/hemorrhoids/multiple polyps/biopsies show adenomatous and hyperplastic polyps/recall6 months/COLONOSCOPY FLEXIBLE PROXIMAL DIAGNOSTIC performed by Dallas Askew MD at ENDOSCOPY [facility] CORONARY ANGIOGRAPHY W/RIGHT+LEFT CATH N/A 04/09/2024 CORONARY ANGIOGRAPHY W/RIGHT+LEFT CATH performed by Jose Cruz Hill DO at [facility] CORONARY ARTERIES BYPASS, TWO 11/10/2015 CORONARY ARTERY BYPASS GRAFT WITH 2 VEIN GRAFTS performed by Jorge Colón MD at OR [facility] ENDO,VIDEO ASSIST HARVEST KAROLINE 11/10/2015 ENDOSCOPY VIDEO ASSISTED HARVEST VEIN performed by Jorge Colón MD at OR [facility] REMOVE CATARACT, INSERT LENS PROSTH Right 08/22/2020 RIGHT EXTRACAPSULAR CATARACT REMOVAL WITH INTRAOCULAR LENS performed by Pola Lozano MD at [facility] REMOVE CATARACT, INSERT LENS PROSTH Left 09/05/2020 LEFT EXTRACAPSULAR CATARACT REMOVAL WITH INTRAOCULAR LENS performed by Pola Lozano MD at [facility] REPLACEMENT AORTIC VALVE, BYPASS WITH PROSTHETIC VALVE 11/10/2015 REPLACEMENT AORTIC VALVE performed by Jorge Colón MD at OR [facility] Review of patient's allergies indicates: Allergen Reactions [...] REVIEW OF SYSTEMS: Review of Systems Constitutional: Positive for fatigue. Negative for chills, fever and unexpected weight change. Respiratory: Positive for shortness of breath (occasional). Negative for cough, chest tightness andwheezing. Cardiovascular: Negative for chest pain, palpitations and leg swelling. Gastrointestinal: Negative for abdominal pain, constipation, diarrhea, nausea and vomiting. Musculoskeletal: Negative for arthralgias, gait problem and joint swelling. Skin: Negative for color change, pallor and rash. OBJECTIVE: BP 116/64 (BP Site: Left Arm, BP Position: Sitting, BP Cuff Size: Large) | Pulse 92 | Temp 97.4 F(36.3 C) (Tympanic) | Resp 14 | Ht 5' 7" (1.702 m) | Wt 226 lb 6.4 oz (102.7 kg) | SpO2 100% | BMI 35.46 kg/m | BSA 2.2 m PHYSICAL EXAM: [...] oriented to person, place, and time. ASSESSMENT/PLAN: (I25.10) Atherosclerosis of [place] coronary artery of [place] heart without angina pectoris (primaryencounter diagnosis) (Z95.5) S/P drug eluting coronary stent placement 95.2) S/P AVR (aortic valve replacement) (R53.81, R53.83) Malaise and fatigue Plan: Unclear etiology of pt's symptoms. After long discussion, he states it has gone on at least 9years and he does not expect to find an answer. He states he remains frustrated. Discussed treatment of mood but he and do not feel that this is needed. Advised to monitor if neuropathy is keeping him up. Limit afternoon naps to 30 minutes. Advised sleep study and he declines. Will message cardiology as well. Follow-up: as scheduled Total time today including reviewing chart before the visit, pertinent labs, imaging reports, face to face time, and documentation time was 41 minutes. Chelle Vasquez DO documented in this encounter Nursing Notes * Rea Benitez LPN - 09/27/2024 1:44 PM EST Patient here for follow up visit. Reports he has been taking Torsemide twice a day for past 3 days. documented in this encounter Plan of Treatment Upcoming Encounters Date Type Department Care Team (Latest Contact Info) Description 11/03/2024 8:00 AM EST Hospital Encounter ENDO [facility], Endoscopy Room [facility] [address] [place] [id number] Dallas Askew MD [address] [place] [address] 11/03/2024 8:00 AM EST - 11/03/2024 8:30 AM EST Surgery ENDO [facility], Endoscopy Room [facility] [address] [facility] [place] [phone] Dallas Askew MD [address] [place] [address] COLONOSCOPY FLEXIBLE PROXIMAL DIAGNOSTIC 12/14/2024 8:40 AM EST Office Visit Family Practice [address] [place] [address], [place] [address] [place] [address] Chelle Vasquez DO [address] [facility], [place] [address] 01/03/2025 11:00 AM EDT Office Visit Cardiology, [facility] [address] [place] [address] Uriel Warren, DO [address] [facility] [place] [address] 02/11/2025 1:30 PM EDT Office Visit Dermatology [facility] [address] [facility] [place] [address] Juanito Browning MD [address] [place] [address] 02/17/2025 11:30 AM EDT Office Visit Cardiology, [facility] [address] [facility] [place] [address] Uriel Warren, DO [address] [facility] [place] [address] 02/17/2025 2:30 PM EDT Office Visit Hematology/Oncology [facility] [address] [facility] [place] [phone] Leonarda Trevino CRNP [address] [place], [place] [address] [address] 03/23/2025 8:40 AM EDT Office Visit Pulmonary Medicine, [facility] [address] [facility] [place] [address] Marino Rodriguez MD [address] [place] [address] Scheduled Procedures Name Priority Associated Diagnoses Date/Ti me COLONOSCOPY FLEXIBLE PROXIMAL DIAGNOSTIC History of colon polyps Family history of colonic polyps 11/03/2024 8:00 AM EST Health Maintenance Due Date Last Done Comments Cologuard 1999 Fecal Occult Blood Test 1999 Sigmoidoscopy 1999 Adult Wellness Visit 02/02/2020 Hepatitis C Screening 09/28/2024 Postpo angie from 02/02/1972 (Patient Declined After [...] this encounter Medical Devices Implanted Type Area Motor Inspection Mechanic Device Identifier Shelf Expiration Date Model / Serial / Lot Marker Coronary [facility] - [id number] Implanted:Qty: 2 on 11/10/2015 by Jorge Colón MD at OR [facility] N/A: Heart [employer] AM-SD / / [id number] Valve Heart Aortic Epic 25mm - [id number] - [id number] Implanted:Qty: 1 on 11/10/2015 by Jorge Colón MD at OR [facility] N/A: Heart ST LENNY : CARDIOVASCULAR 03/05/2019 [id number] 5-00 / [id number] / Sut Steel 6 M654g - [id number] Implanted:Qty: 4 on 11/10/2015 by Jorge Colón MD at OR [facility] N/A: Chest JNJ : [employer] M654G / / Lens Intraoc 16.5 - [id number] - [id number] Implanted:Qty: 1 on 08/22/2020 by Pola Lozano MD at OR [facility] Right: Eye [employer]OM[employer] 02/09/2025 [id number] / [id number] / [id number] Lens Intraoc 16.0 - [id number] - [id number] Implanted:Qty: 1 on 09/05/2020 by Pola Lozano MD at OR [facility] Left: Eye [employer] LOMB 02/09/2025 [id number] 0 / [id number] / [id number] Clip Quick 2.8mm 230cm - [id number] Implanted:Qty: 1 on 04/23/2021 by Dallas Askew MD at ENDOSCOPY [facility] Colon [employer] 12/11/2023 [id number] .[id number] / / 13K Cath Thermodilution 6fr - [id number] Implanted:Qty: 1 on 04/09/2024 by Jose Cruz Hill DO at [facility] [employer] [id number] 10/27/2025 [id number] / / [id number] Stent Xience Skypoint 3.25x15 - [id number] Implanted:Qty: 1 on 04/09/2024 by Jose Cruz Hill DO at [facility] [employer] [facility] : VASCULAR DEVICES 01/04/2027 [id number] / / [id number] documented as of this encounter Visit Diagnoses Diagnosis Atherosclerosis of [place] coronary artery of [place] heart without angina pectoris- Primary S/P drug eluting coronary stent placement Postsurgical percutaneous transluminal coronary angioplasty status S/P AVR (aortic valve replacement) Heart valve replaced by other means Malaise and fatigue Other malaise and fatigue History of colon polyps Personal history of [...] Power of Attor baldev? No Care Teams Mail Order Biller Relationship Specialty Start Date End Date Chelle Vasquez DO [address] [place] [address] PCP - General Family Medicine 03/30/24 documented as of this encounter
--- OUTSIDE RECORDS SUMMARY | 2024-12-08 08:19 | External Medical Summary | Summary of Care ---
Author Name Unknown Organization [facility] Address [address] [facility] [place] [address] Phone [phone] Care Team Providers Care Transmitter Supervisor Name Role Phone JyotsnaMona montieljackeline Lazo DO Primary Care Provider Reason for Visit * Reason Comments Outpatient Testing Encounter Details Date Type Department Care Team (Late st Contact Info) Description 08/12/2024 10:00 AM EDT Laboratory Laboratory, [facility] 132 [facility] [place] [address] [facility] [address] [facility] [address] Anemia, unspecified type; History of colonic polyps Allergies Active Allergy Reactions Criticality Noted Date Comments Allopurinol Rash 04/17/2020 Pollen 04/22/2012 Seasonal allergies Molds & Smuts 07/01/2022 documented as of this encounter (statuses as of 08/12/2024) Medications Medication Sig Dispensed Refills Start Date End Date Status Fexofenadine HCl 180 MG Oral Tablet Take [...] 1 Tablet by mouth in the morning. 08/27/2023 Active Carvedilol 3.125 MG Oral Tablet (Coreg) Take 1 Tablet by mouth in the morning and 1 Tablet before bedtime. 68 Tablet 11 12/23/2023 Active Additional Information Patient taking differently:3.125 mg OralDaily(Non-Specified), Only taking at bedtime, Reported on 02/24/2024 Probenecid 500 MG Oral Tablet (Benemid) Take 1 Tablet by mouth in the morning and 1 Tablet before bedtime. 60 Tablet 03/23/2024 Active Aspirin 81 MG Oral Tablet Chewable Take 1 Tablet by mouth in the morning. Do not start before April 10, 2024. 90 Tablet 3 04/10/2024 Active Torsemide 20 MG Oral Tablet (Demadex) Take 1 Tablet by mouth in the morning. 90 Tablet 04/09/2024 Active Clopidogrel Bisulfate 75 MG Oral Tablet (pLAVix) Take 1 Tablet by mouth in the morning. Do not start before April 10, 2024. 90 Tablet 3 04/10/2024 Active Amoxicillin 500 MG Oral Capsule (Amoxil) Take 4 Capsules by mouth daily as needed (dental appointments). Active Omeprazole 20 MG Oral Capsule Delayed Release (PriLOSEC) Take 1 Capsule by mouth at bedtime. 90 Capsule 3 05/31/2024 Active Ezetimibe 10 MG Oral Tablet (Zetia) Take 1 Tablet by mouth in the morning. 100 Tablet 3 06/08/2024 Active Ventolin HFA 108 (90 Base) MCG/ACT Inhalation Aerosol Solution Inhale 2 Puffs by mouth as needed for Cough or Wheezing. 18 g 06/29/2024 Active Lisinopril 10 MG Oral Tablet (Prinivil) Take 0.5 Tablets by mouth in the morning. 90 Tablet 3 06/29/2024 Active Compressor NebulizerIndication s:Acute cough,Wheeze,Hodgki n lymphoma, unspecified Hodgkin lymphoma type, unspecified body region (HCC),Acute bronchospasm Inhale via nebulizer. Use with medication every 4 hours. 1 Each 07/06/2024 Active Albuterol Sulfate (2.5 MG/3ML) 0.083% Inhalation Nebulization Solution (Proventil)Indicati ons:Acute cough,Wheeze,Hodgki n lymphoma, unspecified Hodgkin lymphoma type, unspecified body region (HCC),Acute bronchospasm Inhale 1 Vial via nebulizer every 4 hours as needed for Wheezing. 180 mL 07/06/2024 Active Nitroglycerin 0.4 MG Sublingual Tablet Sublingual (Nitrostat) Place 1 Tablet under the tongue every 5 minutes as needed for Pain, Chest. up to 3 doses in 15 minutes 25 Tablet 11 07/22/2024 Active Additional Information Patient not taking.Reported on 08/06/2024 Atorvastatin Calcium 40 MG Oral Tablet (Lipitor) Take 1 Tablet by mouth in the morning. 100 Tablet 3 07/22/2024 Active Fluticasone-Salmete rol 115-21 MCG/ACT Inhalation Aerosol (Advair HFA) Inhale 2 Puffs by mouth in the morning and 2 Puffs before bedtime. 12 g 12 07/26/2024 Active Spiriva Respimat 2.5 MCG/ACT Inhalation Aerosol Solution (Tiotropium [place] Monohydrate) Inhale 2 Puffs by mouth in the morning. 4 g 07/26/2024 08/25/2024 Active Azithromycin 250 MG Oral Tablet (Zithromax Z-Garth) Please take 2 tablets (500 mg) by mouth on day one, followed by 1 tablet (250 mg) by mouth for four days. 6 Tablet 07/26/2024 Active Additional Information Patient not taking.Reported on 08/06/2024 predniSONE 10 MG Oral Tablet (Deltasone) Take 2 tablets by mouth Daily in AM with meals for 5 day then 1 Tab daily with meals for 5 days then 1/2 tab daily with meals for 5 days then STOP. 18 Tablet 1 07/26/2024 Active Fluticasone-Salmete rol 115-21 MCG/ACT Inhalation Aerosol (Advair HFA) Inhale 2 Puffs by mouth in the morning and 2 Puffs before bedtime. 12 g 12 07/26/2024 Active Clotrimazole 10 MG Mouth/Throat Coral (Mycelex Coral)Indications: Thrush Take 1 Lozenge by mouth 5 times a day for 14 days. 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 See genetic counselor note for more details (07/08/2024). Calculus of gallbladder with out cholecystitis without obstruction 04/22/2024 Angina at rest 04/09/2024 S/P drug eluting coronary stent placement 2023 Overview: S/p successful PCI to prox RCA 80% stenosis with placement of 3.63k68bg Xience Skypoint WEST, post-dilated with 3.5mm NC Balloon reducing stenosis to 0% with JAMES 3 flow Essential (primary) hypertension 12/08/2023 Hyperlipidemia 12/08/2023 Atherosclerosis of [place] co ronary artery without angina pectoris 12/08/2023 History of therapeutic radiation 09/20/2022 MGUS (monoclonal gammopathy of unknown significa nce) 05/17/2020 History of nonmelanoma skin cancer 11/25/2017 Overview: Hx of BCC mid back - 2016 [...] as of this encounter (statuses as of 08/12/2024) Resolved Problems Problem Noted Date Diagnosed Date Resolved Date Prediabetes 12/22/2023 04/22/2024 Overview: Per Prediabetes protocol Atrial fibrillation 11/20/2015 04/05/20 Overview: ICD-10 update of inactive term Anticoagulation management encounter 11/20/2015 04/05/2024 History of basal cell carcinoma 11/09/2013 11/25/2017 Basal cell carcinoma of skin of trunk, except scrotum 06/23/2013 11/25/2017 History of basal cell carcinoma 04/22/2012 11/25/2017 Overview: Hx of BCC left post auricular sulcus - 2009 Hx of BCC left ear - 2009 Hx of BCC right upper back - 2011 Hx of BCC left lateral neck - 2011 documented as of this encounter (statuses as of 08/12/2024) Immunizations Name Administration Dates Next Due COVID-19 mRNA, LNP-s, No Pre serve, 2-Dose Series (Moderna) 02/08/2022,09/05/2021,12/10/2020,11/02 COVID-19, MRNA-LNP, 23-24, P F, 50 MCG/0.5 mL, 12 YRS AND ABOVE, [...] Assigned at Male 09/18/2022 7:41 AM EST Gender Identity Male 09/18/2022 7:41 AM EST Sexual Orientation Straight 09/18/2022 7: 41 AM EST Job Start Date Occupation Industry Not on file Not on file Not on file documented as of this encounter Functional Status Functional Status Response Date of Assess ment Are you deaf or do you have serious difficulty h earing? No 11/08/2015 Are you blind or do you have serious difficulty seeing, even when wearing glasses? No 11/08/2015 Do you have serious difficul ty walking or climbing stairs? (5 years old or older) No 11/08/2015 Because of a physical, menta l, or emotional condition, do you have difficulty doing errands alone such as visiting a doctor s office or shopping? (15 years old or older) No 11/08/19 16 Cognitive Status Response Date of Assessm ent Because of a physical, menta l, or emotional condition, do you have serious difficulty concentrating, remembering, or making decisions? (5 years old or older) No 11/08/2015 documented as of this encounter Plan of Treatment Upcoming Encounters Date Type Department Care Team (Latest Contact Info) Description 08/13/2024 2:00 PM EDT Office Visit Dermatology [facility] [address] [facility] [place] [address] Juanito Browning MD 16 [place] [address] 08/19/2024 8:30 AM EST Office Visit Hematology/Oncology [facility] [address] [facility] [place] [phone] Leonarda Trevino CRNP 400 [facility] [place] [address] 09/14/2024 10:20 AM EST Office Visit Pulmonary Medicine, [facility] 132 [facility] [place] [address] Marino Rodriguez MD [address] [place] [address] 09/17/2024 2:20 PM EST Office Visit Family Practice [address] [place] [address] 293 [place] [address] Chelle Vasquez DO 293 [facility], [place] [address] 11/03/2024 8:00 AM EST Hospital Encounter ENDO [facility], Endoscopy Room [facility] [address] [place] [phone] Dallas Askew MD [address] [place] [address] 11/03/2024 8:00 AM EST - 11/03/2024 9:00 AM EST Surgery ENDO [facility], Endoscopy Room [facility] [address] [place] [phone] Dallas Askew MD [address] [place] [address] COLONOSCOPY FLEXIBLE PROXIMAL DIAGNOSTIC 11/18/2024 11:00 AM EST Office Visit Dermatology [facility] [address] [facility] [place] [address] Gladys Srivastava MD [address] [facility] [place] [address] 02/17/2025 11:30 AM EDT Office Visit Cardiology, [facility] [address] [place] [address] Uriel Warren, DO 132 [facility] [place] [address] 02/17/2025 2:30 PM EDT Office Visit Hematology/Oncology [facility] [address] [facility] [place] [address] Leonarda Trevino CRNP [address] [place], [place] [address] [address] Pending Results Name Type Priority Associated Diagnoses Date /Time CBC WITH WBC DIFFERENTIAL Lab STAT Anemia, unspecified type History of colonic polyps 08/12/2024 10:07 AM EDT IRON SCREEN, INCLUDING TIBC Lab STAT Anemia, unspecified type History of colonic polyps 08/12/2024 10:07 AM EDT FERRITIN Lab STAT Anemia, unspecified type History of colonic polyps 08/12/2024 10:07 AM EDT VITAMIN B12 Lab STAT Anemia, unspecified type History of colonic polyps 08/12/2024 10:07 AM EDT FOLIC ACID Lab STAT Anemia, unspecified type History of colonic polyps 08/12/2024 10:07 AM EDT CBC Lab STAT Anemia, unspecified type History of colonic polyps 08/12/2024 10:07 AM EDT DIFFERENTIAL, AUTOMATED Lab STAT Anemia, unspecified type History of colonic polyps 08/12/2024 10:07 AM EDT Scheduled Procedures Name Priority Associated Diagnoses Date/Ti [...] BP CUFF VALIDATION YEARLY 03/04/2025 03/04/2024 GFR 06/30/2025 06/30/2024, 03/14, 03/23/2024, Additional history exists Albumin/Creatinine Ratio 02/23/2027 02/24/2024 [...] this encounter Medical Devices Implanted Type Area Md Allergy Immunology Device Identifier Shelf Expiration Date Model / Serial / Lot Marker Coronary [facility] - [id number] Implanted:Qty: 2 on 11/10/2015 by Jorge Colón MD at [facility] N/A: Heart [employer] [facility] / / [id number] Valve Heart Aortic Epic 25mm - [id number] - [id number] Implanted:Qty: 1 on 11/10/2015 by Jorge Colón MD at [place] [facility] N/A: Heart ST LENNY : CARDIOVASCULAR 03/05/2019 [id number] 5-00 / [id number] / Sut Steel 6 M654g - [id number] Implanted:Qty: 4 on 11/10/2015 by Jorge Colón MD at [facility] N/A: Chest JNJ : [employer] M654G / / Lens Intraoc 16.5 - [id number] - [id number] Implanted:Qty: 1 on 08/22/2020 by Pola Lozano MD at [facility] Right: Eye [employer]OM[employer] 02/09/2025 [id number] / [id number] / [id number] Lens Intraoc 16.0 - [id number] - [id number] Implanted:Qty: 1 on 09/05/2020 by Pola Lozano MD at [facility] Left: Eye [employer]CH [employer] LOMB 02/09/2025 [id number] 0 / [id number] / [id number] Clip Quick 2.8mm 230cm - [id number] Implanted:Qty: 1 on 04/23/2021 [facility] [employer] 12/11/2023 HX-202UR .A / / 13K Cath Thermodilution 6fr - [id number] Implanted:Qty: 1 on 04/09/2024 by Jose Cruz Hill DO at [facility] [employer] [id number] 10/27/2025 [id number] / / [id number] Stent Xience Skypoint 3.25x15 - [id number] Implanted:Qty: 1 on 04/09/2024 by Jose Cruz Hill DO at [facility] [employer] [facility] : VASCULAR DEVICES 01/04/2027 [id number] / / [id number] documented as of this encounter Visit Diagnoses Diagnosis Anemia, unspecified type History of colonic polyps Personal history of colonic polyps History [...] Power of Attor baldev? No Care Teams Transmitter Supervisor Relationship Specialty Start Date End Date Chelle Vasquez DO [address] [place] [id number] PCP - General Family Medicine 03/30/24 documented as of this encounter
--- OUTSIDE RECORDS SUMMARY | 2024-12-08 08:19 | External Medical Summary | Summary of Care ---
Author Name Unknown Organization [facility] Address [address] [facility] [place] [address] Phone [phone] Care Team Providers Care Pump Service Supervisor Name Role Phone Chelle Vasquez DO Primary Care Provider [phone] Reason for Visit * Reason Onset Date Comments Appointment 08/20/2024 Sooner cardio Encounter Details Date Type Department Care Team (Late st Contact Info) Description 08/20/2024 Telephone Family Practice [address] [facility] 293 [place] [phone] Chelle Vasquez DO 293 [place] [address] Appointment (Sooner cardio ) Allergies Active Allergy Reactions Criticality Noted Date Comments Allopurinol Rash 04/17/2020 Pollen 04/22/2012 Seasonal allergies Molds & Smuts 07/01/2022 documented as of this encounter (statuses as of 08/23/2024) Medications Fexofenadine HCl 180 MG Oral Tablet [...] the morning. 90 Tablet 3 4 Active Compressor NebulizerIndicat ions:Acute cough,Wheeze,Hod gkin lymphoma, unspecified Hodgkin lymphoma type, unspecified body region (HCC),Acute bronchospasm Inhale via nebulizer. Use with medication every 4 hours. 1 Each 1 4 Active Albuterol Sulfate (2.5 MG/3ML) 0.083% Inhalation Nebulization Solution (Proventil)Indic ations:Acute cough,Wheeze,Hod gkin lymphoma, unspecified Hodgkin lymphoma type, unspecified body region (HCC),Acute bronchospasm Inhale 1 Vial via nebulizer every 4 hours as needed for Wheezing. 180 mL 5 07/07/2024 10:51 AM EDT 4 Active Nitroglycerin 0.4 MG Sublingual Tablet Sublingual (Nitrostat) Place 1 Tablet under the tongue every 5 minutes as needed for Pain, Chest. up to 3 doses in 15 minutes 25 Tablet 11 07/22/2024 11:02 AM EDT 4 Active Atorvastatin Calcium 40 MG Oral Tablet (Lipitor) Take 1 Tablet by mouth in the morning. 100 Tablet 3 07/22/2024 11:02 AM EDT 4 Active Fluticasone-Salm eterol 115-21 MCG/ACT Inhalation Aerosol (Advair HFA) Inhale 2 Puffs by mouth in the morning and 2 Puffs before bedtime. 12 g 12 07/26/2024 2:37 PM EDT 4 Active Spiriva Respimat 2.5 MCG/ACT Inhalation Aerosol Solution (Tiotropium [place] Monohydrate) Inhale 2 Puffs by mouth in the morning. 4 g 07/26/2024 2:37 PM EDT 4 08/25/20 24 Active Azithromycin 250 MG Oral Tablet (Zithromax Z-Garth) Please take 2 tablets (500 mg) by mouth on day one, followed by 1 tablet (250 mg) by mouth for four days. 6 Tablet 07/26/2024 2:37 PM EDT 4 Active Additional Information Patient not taking.Reported on 08/13/2024 predniSONE 10 MG Oral Tablet (Deltasone) Take 2 tablets by mouth Daily in AM with meals for 5 day then 1 Tab daily with meals for 5 days then 1/2 tab daily with meals for 5 days then STOP. 18 Tablet 1 07/26/2024 2:37 PM EDT 4 Active Additional Information Patient not taking.Reported on 08/19/2024 Fluticasone-Salm eterol 115-21 MCG/ACT Inhalation Aerosol (Advair HFA) Inhale 2 Puffs by mouth in the morning and 2 Puffs before bedtime. 12 g 12 4 Active Hospital, Clinic, or Other Facility Administered Medication Ordered Dose Route Frequency Start Date End Date Status Albuterol Sulfate (Proventil) (2.5 MG/3ML) 0.083% inhalation solution 2.5 mgIndications:Hodgkin lymphoma, unspecified Hodgkin lymphoma type, unspecified body region (HCC) 2.5 mg NEBULIZER PRN 04/06/2024 Active documented as of this encounter (statuses as of 08/23/2024) Active Problems Problem Noted Date Diagnosed Date [...] prox RCA 80% stenosis with placement of 3.55w10oz Xience Skypoint WEST, post-dilated with 3.5mm NC Balloon reducing stenosis to 0% with JAMES 3 flow Essential (primary) hypertension 12/08/2023 Hyperlipidemia 12/08/2023 Atherosclerosis of [place] co ronary artery without angina pectoris 12/08/2023 [...] as of this encounter (statuses as of 08/23/2024) Resolved Problems Problem Noted Date Diagnosed Date [...] as of this encounter (statuses as of 08/23/2024) Immunizations Name Administration Dates Next Due COVID-19 [...] encounter Miscellaneous Notes * Telephone Encounter - Caryl Currie OSA - 08/23/2024 11:06 AM EST Pt aware date/time/location of this appt * Telephone Encounter - Femi Olivera OSA - 08/20/2024 11:54 AM EST Patient has been rescheduled on: RETURN CARDIOLOGY at 9:00 AM (30 min)Arrive by 8:45 AM Sunday September 08, 2024 Appointment Provider:Uriel Warren DO in [facility]IOLOGY [facility] * Telephone Encounter - Caryl Currie OSA - 08/20/2024 11:38 AM EST Cardio - please advise if pt can be seen in office. Pt in pcp office to request us reach out to cardio. One flight of steps, has to stop bc he is exhausted, not sob but very tired, his ears are ringing, dizzy frequently and bp is running low. Pt states this is not something new but feels like he is going backwards at this time. First avail I can schedule is December 2024. He can be reached at [phone] Dr Pedro TOUSSANIT documented in this encounter Plan of Treatment Upcoming Encounters Date Type Department Care Team (Latest Contact Info) Description 09/08/2024 9:00 AM EST Office Visit Cardiology, [facility] 132 [facility] [place] [address] Uriel Warren DO 132 [facility] [place] [address] 09/14/2024 10:20 AM EST Office Visit Pulmonary Medicine, [facility] 132 [facility] [place] [address] Marino Rodriguez MD [address] [place] [address] 09/17/2024 2:20 PM EST Office Visit Family Practice [address] [place] [address] 293 [place] [address] Chelle Vasquez DO 293 [facility], [place] [address] 11/03/2024 8:00 AM EST Hospital Encounter ENDO [facility], Endoscopy Room [facility] [address] [place] [phone] Dallas Askew MD [address] [place] [address] 11/03/2024 8:00 AM EST - 11/03/2024 8:30 AM EST Surgery ENDO [facility], Endoscopy Room [facility] [address] [place] [address] Dallas Askew MD [address] [place] [address] COLONOSCOPY FLEXIBLE PROXIMAL DIAGNOSTIC 11/18/2024 11:00 AM EST Office Visit Dermatology [facility] 200 [facility] [place] [address] Gladys Srivastava MD 200 [facility] [place] [address] 02/11/2025 1:30 PM EDT Office Visit Dermatology [facility] 200 [facility] [place] [address] Juanito Browning MD [address] [place] [address] 02/17/2025 11:30 AM EDT Office Visit Cardiology, [facility] [address] [place] [address] Uriel Warren, DO [address] [place] [address] 02/17/2025 2:30 PM EDT Office Visit Hematology/Oncology [facility] 200 [facility] [place] [phone] Leonarda Trevino CRNP [address] [place] [address] [place] [phone] Scheduled Procedures Name Priority Associated Diagnoses Date/Ti [...] this encounter Medical Devices Implanted Type Area Head Waiter/Waitress Banquet Device Identifier Shelf Expiration Date Model / Serial / Lot Marker Coronary Am-Sd - [id number] Implanted:Qty: 2 on 11/10/2015 by Jorge Colón MD at [place] [facility] N/A: Heart [employer]-SD / / [id number] Valve Heart Aortic Epic 25mm - [id number] - [id number] Implanted:Qty: 1 on 11/10/2015 by Jorge Colón MD at [place] [facility] N/A: Heart ST LENNY : CARDIOVASCULAR 03/05/2019 [id number] 5-00 / [id number] 1 / Sut Steel 6 M654g - [id number] Implanted:Qty: 4 on 11/10/2015 by Jorge Colón MD at [place] [facility] N/A: Chest JNJ : [employer] M654G / / Lens Intraoc 16.5 - [id number] - [id number] Implanted:Qty: 1 on 08/22/2020 by Pola Lozano MD at OR [facility] Right: Eye [employer] LOMB 02/09/2025 [id number] 5 / [id number] / [id number] Lens Intraoc 16.0 - [id number] - [id number] Implanted:Qty: 1 on 09/05/2020 by Pola Lozano MD at OR [facility] Left: Eye [employer] LOMB 02/09/2025 [id number] 0 / [id number] / [id number] Clip Quick 2.8mm 230cm - [id number] Implanted:Qty: 1 on 04/23/2021 by Dallas Askew MD at ENDOSCOPY [facility] Colon [employer] 12/11/2023 HX-[id number] .A / / 13K Cath Thermodilution 6fr - [id number] Implanted:Qty: 1 on 04/09/2024 by Jose Cruz Hill DO at [facility] [employer] [id number] 10/27/2025 [id number] / / [id number] Stent Xience Skypoint 3.25x15 - [id number] Implanted:Qty: 1 on 04/09/2024 by Jose Cruz Hill DO at [facility] [employer] [facility] : VASCULAR DEVICES 01/04/2027 [id number] / / [id number] documented as of this encounter Advance Directives [...] Power of Attor baldev? No Care Teams Pump Service Supervisor Relationship Specialty Start Date End Date Chelle Vasquez DO 293 [facility] [place] [address] PCP - General Family Medicine 03/30/24 documented as of this encounter
--- OUTSIDE RECORDS SUMMARY | 2024-12-08 08:19 | External Medical Summary ---
Author Name Unknown Address Unknown Organization K0G:[facility] [place] [address] Laboratory Report Ordering Provider Test Date Status LETICIA WALKER 09/14/2024 09:56:25 Final Observation Date Value Abnormality Reference (Units ) Status BUN 09/14/2024 09:56:25 24 Above high normal 6-20 (mg/dL) Final Creatinine 09/14/2024 09:56:25 1.2 0.6-1.2 (mg/dL) Final Glomerular filtration rate/1.73 sq M.predicted [Volume Rate/Area] in Serum, Plasma or Blood by Creatinine-based formula (CKD-EPI) 09/14/2024 09:56:25 63 >=60 (mL/min) Final eGFR is calculated based on the CKD-EPI 2020 equation. Sodium 09/14/2024 09:56:25 138 135-146 (m mol/L) Final Potassium 09/14/2024 09:56:25 4.5 3.5-5.1 (m mol/L) Final Cl 09/14/2024 09:56:25 100 98-107 (mm ol/L) Final CO2 09/14/2024 09:56:25 27 22-32 (mmo l/L) Final Anion gap 09/14/2024 09:56:25 11 7-15 (mmol /L) Final Glucose 09/14/2024 09:56:25 109 70-120 (mg /dL) Final Calcium 09/14/2024 09:56:25 9.6 8.4-10.2 ( mg/dL) Final Performing Location [facility] [place] [address]
--- OUTSIDE RECORDS SUMMARY | 2024-12-08 08:19 | External Medical Summary | Summary of Care ---
Author Name Unknown Organization [facility] Address [address] [facility] [address] Phone [phone] Care Team Providers Care Shell Reprint Operator Name Role Phone Pedro Chelle Lazo DO Primary Care Provider [phone] Encounter Details Date Type Department Care Team (Late st Contact Info) Description 09/10/2024 Orders Only PATIENT PORTAL DO NOT DELETE THIS DEPT USED BY [place] [id number] Allergies Active Allergy Reactions Criticality Noted Date Comments Allopurinol Rash 04/17/2020 Pollen 04/22/2012 Seasonal allergies Molds & Smuts 07/01/2022 documented as of this encounter (statuses as of 09/10/2024) Medications Fexofenadine HCl 180 MG Oral Tablet [...] OralDaily(Non-Specified), Only taking at bedtime, Reported on 09/08/2024 Probenecid 500 MG Oral Tablet (Benemid) Take [...] 12 07/26/2024 2:37 PM EDT 4 Active Fluticasone-Pedro meterol 115-21 MCG/ACT Inhalation Aerosol (Advair HFA) Inhale 2 Puffs by mouth in the morning and 2 Puffs before bedtime. 12 g 12 Active documented as of this encounter (statuses as of 09/10/2024) Active Problems Problem Noted Date Diagnosed Date [...] prox RCA 80% stenosis with placement of [id number] Xience Skypoint WEST, post-dilated with 3.5mm NC Balloon reducing stenosis to 0% with JAMES 3 flow Essential (primary) hypertension 12/08/2023 Hyperlipidemia 12/08/2023 Atherosclerosis of [place] ronary artery without angina pectoris 12/08/2023 [...] as of this encounter (statuses as of 09/10/2024) Resolved Problems Problem Noted Date Diagnosed Date [...] as of this encounter (statuses as of 09/10/2024) Immunizations Name Administration Dates Next Due COVID-19 [...] Department Care Team (Latest Contact Info) Description 09/14/2024 10:20 AM EST Office Visit Pulmonary Medicine, [facility] [address] [facility] [place] [address] Marino Rodriguez MD [address] [place] [id number] 09/17/2024 2:20 PM EST Office Visit Family Practice [address] [place] [address] [address] [facility], [place] [id number] Chelle Vasquez, [address] [facility], [place] [address] 11/03/2024 8:00 AM EST Hospital Encounter ENDO [facility], Endoscopy Room [facility] [address] [place] [phone] Dallas Askew MD 132 [place] [address] 11/03/2024 8:00 AM EST - 11/03/2024 8:30 AM EST [facility] [place] [phone] Dallas [facility] [address] COLONOSCOPY FLEXIBLE PROXIMAL DIAGNOSTIC 11/18/2024 11:00 AM EST Office Visit Dermatology [facility] [address] [place] [address] Gladys Srivastava MD [address] [place] [address] 01/03/2025 11:00 AM EDT [facility] [address] Uriel Warren DO 132 [facility] [place] [address] 02/11/2025 1:30 PM EDT Office Visit Dermatology [facility] [address] [place] [address] Juanito Browning MD [address] [place] [address] 02/17/2025 11:30 AM EDT Office Visit Cardiology, [facility] [address] [facility] [place] [address] Kopinski, Uriel O, DO [address] [place] [address] 02/17/2025 2:30 PM EDT Office Visit Hematology/Oncology [facility] [place] [address] [place] [address] Leonarda Trevino CRNP [address] [place] [address] Scheduled Procedures Name Priority Associated Diagnoses Date/Ti [...] this encounter Medical Devices Implanted Type Area Resource Recovery Engineer Device Identifier Shelf Expiration Date Model / Serial / Lot Marker [facility] - [id number] Implanted:Qty: 2 on 11/10/2015 by Jorge Colón MD at OR [facility] N/A: Heart [facility] [facility] / / [id number] Valve Heart Aortic Epic 25mm - [id number] - [id number] Implanted:Qty: 1 on 11/10/2015 by Jorge Colón MD at OR [facility] N/A: Heart [facility] : CARDIOVASCULAR 03/05/2019 [id number] 5-00 / [id number] / Sut Steel 6 M654g - [id number] Implanted:Qty: 4 on 11/10/2015 by Jorge Colón MD at OR [facility] N/A: Chest JNJ : [employer] M654G / / Lens Intraoc 16.5 - [id number] - [id number] Implanted:Qty: 1 on 08/22/2020 by Pola Lozano MD at OR [facility] Right: Eye [employer] 02/09/2025 [id number] / [id number] / [id number] Lens Intraoc 16.0 - [id number] - [id number] Implanted:Qty: 1 on 09/05/2020 by Pola Lozano MD at OR [facility] Left: Eye [employer]OM[employer] 02/09/2025 [id number] / [id number] / [id number] Clip Quick 2.8mm 230cm - [id number] Implanted:Qty: 1 on 04/23/2021 by Dallas Askew MD at ENDOSCOPY [facility] Colon [employer] 12/11/2023 [id number] .[id number] / / 13K Cath Thermodilution 6fr - [id number] Implanted:Qty: 1 on 04/09/2024 by Jose Cruz Hill DO at CARDIAC LABS [facility] [employer] [id number] 10/27/2025 [id number] / / [id number] Stent Xience Skypoint 3.25x15 - [id number] Implanted:Qty: 1 on 04/09/2024 by Jose Cruz Hill DO at CARDIAC LABS [facility] [employer] [facility] : VASCULAR DEVICES 01/04/2027 [id number] / / [id number] documented as of this encounter Advance Directives [...] Power of Attor baldev? No Care Teams Shell Reprint Operator Relationship Specialty Start Date End Date Chelle Vasquez DO [address] [facility] [place] [address] PCP - General Family Medicine 03/30/24 documented as of this encounter
--- OUTSIDE RECORDS SUMMARY | 2024-12-08 08:19 | External Medical Summary | Summary of Care ---
Author Name Unknown Organization [facility] Address [address] [facility] [place] [address] Phone [phone] Care Team Providers Care Welder Oxyhydrogen Name Role Phone Chelle Vasquez DO Primary Care Provider Reason for Visit * Reason Comments Follow Up F/U Encounter Details Date Type Department Care Team (Late st Contact Info) Description 08/19/2024 8:30 AM EST Office Visit Hematology/Oncology [facility] [place] [address] [place] [phone] Leonarda Trevino CRNP [address] [place] [address] Hodgkin lymphoma, unspecified Hodgkin lymphoma type, unspecified body region (HCC)*; Normocytic anemia; Thrombophlebitis of superficial veins of left lower extremity; Polyposis of colon Allergies Active Allergy Reactions Criticality Noted Date Comments Allopurinol Rash 04/17/2020 Pollen 04/22/2012 Seasonal allergies Molds & Smuts 07/01/2022 documented as of this encounter (statuses as of 08/22/2024) Medications Fexofenadine HCl 180 MG Oral Tablet [...] Respimat 2.5 MCG/ACT Inhalation Aerosol Solution (Tiotropium Rangely Monohydrate) Inhale 2 Puffs by mouth in the morning. 4 g 07/26/2024 2:37 PM EDT 4 024 Active Azithromycin 250 MG Oral Tablet (Zithromax [...] before bedtime. 12 g 12 4 Active Clotrimazole 10 MG Mouth/Throat Coral (Mycelex Coral)Indicatio ns:Thrush Take 1 Lozenge by mouth 5 times a day for 14 days. Allow tablet to slowly dissolve in your mouth 70 Coral 08/06/2024 4:44 PM EDT 024 Additional Information Patient not taking.Reported on 08/19/2024 Hospital, Clinic, or Other Facility Administered Medication Ordered Dose Route Frequency Start Date End Date Status Albuterol Sulfate (Proventil) (2.5 MG/3ML) 0.083% inhalation solution 2.5 mgIndications:Hodgkin lymphoma, unspecified Hodgkin lymphoma type, unspecified body region (HCC) 2.5 mg NEBULIZER PRN 04/06/2024 Active documented as of this encounter (statuses as of 08/22/2024) Active Problems Problem Noted Date Diagnosed Date [...] prox RCA 80% stenosis with placement of 3.18l78bl Xience Skypoint WEST, post-dilated with 3.5mm NC Balloon reducing stenosis to 0% with JAMES 3 flow Essential (primary) hypertension 12/08/2023 Hyperlipidemia 12/08/2023 Atherosclerosis of pechanga co ronary artery without angina pectoris 12/08/2023 [...] as of this encounter (statuses as of 08/22/2024) Resolved Problems Problem Noted Date Diagnosed Date [...] as of this encounter (statuses as of 08/22/2024) Immunizations Name Administration Dates Next Due COVID-19 [...] Sign Reading Time Taken Comments Blood Pressure 118/70 08/19/2024 8:30 AM EST Pulse 97 08/19/2024 8:30 AM EST Temperature 36.4 C (97.5 F) 08/19/2024 8:30 AM ES T Respiratory Rate 18 08/19/2024 8:30 AM EST Oxygen Saturation 97% 08/19/2024 8:30 AM EST Inhaled Oxygen Concentration - - Weight 100.8 kg (222 lb 3.2 oz) 08/19/2024 8:30 AM EST Height - - Body Mass Index 34.8 07/26/2024 11:52 AM EDT documented in this encounter Functional Status * [...] documented in this encounter Progress Notes * Leonarda Trevino CRNP - 08/19/2024 8:31 AM EST Hematology/Oncology Outpatient Clinic note [facility] [place] [address] [facility] [place] [address] Name: Michael Hughes Date: 08/19/2024 CHIEF COMPLAINT: Michael Hughes is a 69 year old male patient of Dr. Roque Shay here today for f/u visit today. From Patient chart confirmed with patient. HEMATOLOGY/ONCOLOGY DIAGNOSIS: History of Hodgkin's lymphoma was diagnosed in 1974 History of superficial thrombophlebitis TREATMENT HISTORY: Received mantle field radiation therapy. She also underwent staging laparotomy and splenectomy. He was treated at [facility] in [facility]. In 1976 he had recurrent disease and received radiation therapy again. 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 CURRENT TREATMENT: Aspirin and Plavix HISTORY: Patient with past medical history significant for non-Hodgkin's lymphoma, coronary artery disease, hypertension was referred me for evaluation of high proteins in the blood. He was diagnosed of Hodgkin's lymphoma in 1974 and received mantle field radiation therapy. She also underwent staging laparotomy and splenectomy. He was treated at [facility] in [facility]. In 1976 he had recurrent disease and received radiation therapy again. 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 Since then he is in remission. He was admitted to [facility] from the cardiac lab director and on 11/10/15, he underwent bioprosthetic aortic valve replacement with a #25 St. Ariel epic valve, CABG x 2 with a SVG to the LAD and a SVG to OM2 with EVH. He had blood test done on 03/17/2020 in shows creatinine of 1.5, total bilirubin was 1.8, total protein was 8.8 and globulin was 4.8. Serum protein electrophoresis was done on 04/05/2020 and shows a gammaglobulin level of 1.8 (normal range 0.8 to 1.7). Beta 2 microglobulin was 0.6 (normal range is 0.2- 0.5). Last CBC was done on 07/07/2019 shows WBC count of 5.8 hemoglobin 14 and platelet count 261. Patient denies any fever, chills, night sweats. He is intentionally trying to lose weight and watching his diet. He is also complaining of itching specially in the arm bilaterally. He was also diagnosed of gout about month ago and was started on allopurinol. Itching started after starting allopurinol and it got better when he stopped taking the medicine. He denies any chest pain, palpitation. He has chronic complaint of dyspnea on exertion. He denies any abdominal pain or distention, nausea, vomiting, bleeding, bruising. Patient denies smoking. He drinks socially Family history significant for mother was diagnosed of Hodgkin's lymphoma. Father was diagnosed of pancreatic cancer. Grandfather on the both side form mother and father were diagnosed of colon cancer. He had a myeloma panel done and basically is negative for MGUS or multiple myeloma. There is some increase in the serum kappa and lambda level most likely because of the underlying renal insufficiency. There was also increase in the bilirubin. ESR was 48. HISTORY OF PRESENT ILLNESS: Michael Hughes is a 69 year old male with a history as outlined above. Currently here for f/u visittoday. Has been using using testosterone supplementation for a decade, was using in topical formulation. Lost weight and developed hot flashes when he came off of it. Came off of this in February or March.Also had increased his Lipitor. Recently lowered this and is feeling somewhat improved now. Also rec ently had a stent placed. Continues to follow closely with cardiology. After that developed COVID. Was struggling a lot respiratory caballero. Was on multiple inhalers. Required prednisone and antibioticsas well. Is currently completing colonoscopies every six months d/t multiple adenomatous polyps. Next due in October. Is on an aspirin 81 mg and plavix. Weight is increasing and stamina is low. Plansto reach out to cardiology. Is currently in cardiac rehab. Follows with dermatology d/t history of skin cancer. Thrombophlebitis has resolved. Past Medical History: Diagnosis Date Actinic keratosis [...] performed by Wagner Hernandez MD at ENDOSCOPY [facility] COLONOSCOPY, DIAGNOSTIC (RECTUM) 04/23/2021 adenomatous & hyperplastic polyps, diverticulosis, repeat 6-12 mo / COLONOSCOPY FLEXIBLE PROXIMAL DIAGNOSTIC performed by Dallas Askew MD at ENDOSCOPY [facility] COLONOSCOPY, DIAGNOSTIC (RECTUM) 10/22/2022 benign adenomatous & serrated adenomatous polyps, diverticulosis, repeat 6 mo / COLONOSCOPY FLEXIBLE PROXIMAL DIAGNOSTIC performed by Dallas Askew MD at ENDOSCOPY [facility] COLONOSCOPY, DIAGNOSTIC (RECTUM) 04/08/2023 hemorrhoids/diverticulosis/biopsies show adenomatous and hyperplastic polyps/recall 6 months/COLONOSCOPY FLEXIBLE PROXIMAL DIAGNOSTIC performed by Dallas Askew MD at ENDOSCOPY [facility] COLONOSCOPY, DIAGNOSTIC (RECTUM) 10/21/2023 diverticulosis/hemorrhoids/multiple polyps/biopsies show adenomatous and hyperplastic polyps/recall6 months/COLONOSCOPY FLEXIBLE PROXIMAL DIAGNOSTIC performed by Dallas Askew MD at ENDOSCOPY [facility] CORONARY ANGIOGRAPHY W/RIGHT+LEFT CATH N/A 04/09/2024 CORONARY ANGIOGRAPHY W/RIGHT+LEFT CATH performed by Jose Cruz Hill DO at CARDIAC LABS [facility] CORONARY ARTERIES BYPASS, TWO 11/10/2015 CORONARY ARTERY BYPASS GRAFT WITH 2 VEIN GRAFTS performed by Jorge Colón MD at OR [facility] ENDO,VIDEO ASSIST HARVEST KAROLINE 11/10/2015 ENDOSCOPY VIDEO ASSISTED HARVEST VEIN performed by Jorge Colón MD at OR [facility] REMOVE CATARACT, INSERT LENS PROSTH Right 08/22/2020 RIGHT EXTRACAPSULAR CATARACT REMOVAL WITH INTRAOCULAR LENS performed by Pola Lozano MD at OR [facility] REMOVE CATARACT, INSERT LENS PROSTH Left 09/05/2020 LEFT EXTRACAPSULAR CATARACT REMOVAL WITH INTRAOCULAR LENS performed by Pola Lozano MD at OR [facility] REPLACEMENT AORTIC VALVE, BYPASS WITH PROSTHETIC VALVE 11/10/2015 REPLACEMENT AORTIC VALVE performed by Jorge Colón MD at OR [facility] Social History Socioeconomic History Marital status: Spouse name: Not on file Number of children: Not on file Years of education: Not on file Highest education level: Not on file Occupational History Not on file Tobacco Use Smoking status: Never Smokeless tobacco: Never Vaping Use Vaping status: Never Used Substance and Sexual Activity Alcohol use: Yes Comment: occ Drug use: No Sexual activity: Not on file Other Topics Concern Not on file Social History Narrative Not on file Social Determinants of Health Financial Resource Strain: Low Risk (09/18/2023) Financial Resource Strain Do you have any trouble paying for your medications, or do you think you might in the future? (Adult - for ages 18 years and over): No Does your family have trouble paying for medicine? (Household - for ages 0-17 years): Not on file Food Insecurity: No Food Insecurity (09/18/2023) Food Insecurity Do you need food for this week? (Adult - for ages 18 years and over): No Are you able to get enough food for your family? (Household - for ages 0-17 years): Not on file Does your family need food this week? (Household - for ages 0-17 years): Not on file Do you always have enough food for your family? (Household - for ages 0-17 years): Not on file Transportation Needs: No Transportation Needs (09/18/2023) Transportation Needs Do you have trouble getting a ride to medical visits or work? (Adult - for ages 18 years and over):Never True Does your family have a hard time getting a ride to doctors visits? (Household - for ages 0-17 years): Not on file Has lack of transportation kept you from medical appointments, meetings, work, or from getting things needed for daily living? Check all that apply. (Adult - for ages 18 years and over): Not on file Do you (or your family) have trouble finding or paying for a ride (transportation)? (Household - for ages 0-17 years): Not on file Social Connections: Socially Integrated (09/18/2023) Social Connections How often do you feel lonely or isolated from those around you? (Adult - for ages 18 years and over): Never Housing Stability: Low Risk (09/18/2023) Housing Stability Do you currently live in a assisted or have no steady place to sleep at night? (Adult - for ages 18 years and over): No Do you think you are at risk of becoming homeless? (Adult - for ages 18 years and over): No Does your family worry about paying for your home or becoming homeless? (Household - for ages 0-17 years): Not on file Are you homeless or worried that you might be in the future? (Adult - for ages 18 years and over): Not on file Are you (or your family) homeless or worried that you might be in the future? (Household - for ages0-17 years): Not on file Review of patient's allergies indicates: Allergen Reactions Allopurinol Rash Environmental [Pollen] Seasonal allergies Molds & Smuts Current Outpatient Medications Medication Sig Dispense Refill [...] mouth daily. Only taking at bedtime) 68 [id number] Probenecid 500 MG Oral Tablet (Benemid) Take [...] mouth in the morning. 90 Tablet 3 Compressor Nebulizer Inhale via nebulizer. Use with medication every 4 hours. 1 Each 1 Albuterol Sulfate (2.5 MG/3ML) 0.083% Inhalation Nebulization Solution (Proventil) Inhale 1 Vial via nebulizer every 4 hours as needed for Wheezing. 180 mL 5 Nitroglycerin 0.4 MG Sublingual Tablet Sublingual (Nitrostat) Place 1 Tablet under the tongue every5 minutes as needed for Pain, Chest. up to 3 doses in 15 minutes 25 Tablet 11 Atorvastatin Calcium 40 MG Oral Tablet (Lipitor) Take 1 Tablet by mouth in the morning. 100 Tablet 3 Fluticasone-Salmeterol 115-21 MCG/ACT Inhalation Aerosol (Advair HFA) Inhale 2 Puffs by mouth in the morning and 2 Puffs before bedtime. 12 g 12 Spiriva Respimat 2.5 MCG/ACT Inhalation Aerosol Solution (Tiotropium Rangely Monohydrate) Inhale 2 Puffs by mouth in the morning. 4 g 0 Azithromycin 250 MG Oral Tablet (Zithromax Z-Garth) Please take 2 tablets (500 mg) by mouth on day one, followed by 1 tablet (250 mg) by mouth for four days. (Patient not taking: Reported on 08/13/2024)6 Tablet 0 predniSONE 10 MG Oral Tablet (Deltasone) Take 2 tablets by mouth Daily in AM with meals for 5 day then 1 Tab daily with meals for 5 days then 1/2 tab daily with meals for 5 days then STOP. 18 Tablet 1 Fluticasone-Salmeterol 115-21 MCG/ACT Inhalation Aerosol (Advair HFA) Inhale 2 Puffs by mouth in the morning and 2 Puffs before bedtime. 12 g 12 Clotrimazole 10 MG Mouth/Throat Coral (Mycelex Coral) Take 1 Lozenge by mouth 5 times a day for 14 days. Allow tablet to slowly dissolve in your mouth 70 Coral 0 Current Facility-Administered Medications Medication Dose Route Frequency Provider Last Rate Last Admin Albuterol Sulfate (Proventil) (2.5 MG/3ML) 0.083% inhalation solution 2.5 mg 2.5 mg Nebulizer PRN 2.5 mg at 04/06/24 1223 REVIEW OF SYSTEMS: See HPI - otherwise negative OBJECTIVE: Filed Vitals: 08/19/24 0830 BP: 118/70 Pulse: 97 Resp: 18 Temp: 36.4 C (97.5 F) TempSrc: Tympanic SpO2: 97% Weight: 100.8 kg (222 lb 3.2 oz) Wt Readings from Last 5 Encounters: 08/19/24 100.8 kg (222 lb 3.2 oz) 07/26/24 98.4 kg (217 lb) 07/22/24 97.2 kg (214 lb 3.2 oz) 07/05/24 98.6 kg (217 lb 6.4 oz) 06/17/24 96.7 kg (213 lb 3.2 oz) PHYSICAL EXAM: ECOG: Performance Status 1 = 80-90% Symptoms but nearly ambulatory General Appearance: No acute distress Lymph Nodes: Normal - No palpable lymph nodes in the neck, supraclavicular or axillary areas Lungs/Thorax: Normal respiratory effort Extremities: +trace BLE edema with varicosities Neurologic: Normal - Grossly intact LABS: Results for orders placed or performed in visit on 08/12/24 IRON SCREEN, INCLUDING TIBC Result Value Ref Range Iron 80 45 - 176 ug/dL Iron Binding Capacity 277 250 - 425 ug/dL Transferrin Saturation Percent 29 15 - 55 % FERRITIN Result Value Ref Range Ferritin 235 30 - 400 ng/mL VITAMIN B12 Result Value Ref Range Vitamin B12 362 232 - 1,245 pg/mL FOLIC ACID Result Value Ref Range Folic Acid 4.7 >4.5 ng/mL CBC Result Value Ref Range WBC 7.54 4.00 - 10.80 K/uL RBC 3.64 4.50 - 5.25 M/uL HGB 11.8 (L) 14.0 - 16.8 g/dL HCT 36.1 (L) 40.0 - 48.4 % MCV 99.2 82.0 - 99.5 fL MCH 32.4 27.0 - 34.0 pg MCHC 32.7 32.0 - 36.0 g/dL RDW 19.5 11.5 - 15.5 % PLT 365 140 - 400 K/uL MPV 9.8 6.6 - 11.1 fL DIFFERENTIAL, AUTOMATED Result Value Ref Range WBC 7.54 4.00 - 10.80 K/uL Neutrophils % 68.8 40.0 - 75.0 % Lymphocytes % 16.7 (L) 18.0 - 42.0 % Monocytes % 11.8 (H) 1.0 - 11.0 % Eosinophils % 2.4 0.0 - 6.0 % Basophils % 0.3 0.0 - 2.0 % Absolute Neutrophils 5.19 1.80 - 7.70 K/uL Absolute Lymphocytes 1.26 1.00 - 4.80 K/ul Absolute Monocytes 0.89 0.00 - 1.10 K/uL Absolute Eosinophils 0.18 0.00 - 0.70 K/uL Absolute Basophils 0.02 0.00 - 0.20 K/uL IMAGING: PET/CT 07/19/24: IMPRESSION No FDG-avid disease. 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 Will continue to observe at this time. No clinical signs of thrombophlebitis today. Continues on DAPT per cardiology. Repeat colonoscopy scheduled for 11/03/24. RTC as scheduled GILBERTO Marshall documented in this encounter Nursing Notes * Phuong Atkins LPN - 08/19/2024 8:33 AM EST Patient identifed by name and birthdate Do you have any concerns about pain management for today's visit? No Living Will or Advance Directive for Health Care as noted on the problem list. [facility] is a way you can talk to your provider on line through e-mail. Would you like to sign up? I can activate it for you? NO Filed Vitals: 08/19/24 0830 BP: 118/70 Pulse: 97 Resp: 18 Temp: 36.4 C (97.5 F) TempSrc: Tympanic SpO2: 97% Weight: 100.8 kg (222 lb 3.2 oz) Patient was instructed to not get up on the exam table/exam chair until directed and assisted by their provider; patient is to remain seated in the chair/ wheelchair/ exam table/ exam chair for fall prevention and safety reasons. Patient is aware to have assistance to step down off exam table/exam chair with personnel. Patient voiced full comprehension of instructions. documented in this encounter Plan of Treatment Upcoming Encounters Date Type Department Care Team (Latest Contact Info) Description 09/08/2024 9:00 AM EST Office Visit [facility] [address] Uriel Warren DO 132 [facility] [place] [address] 09/14/2024 10:20 AM EST Office Visit Pulmonary Medicine, [facility] [address] [facility] [place] [address] Marino Rodriguez MD [address] [place] [address] 09/17/2024 2:20 PM EST Office Visit Family Practice [address] [place] [address] [address] [place] [address] Chelle Vasquez, DO 293 [facility] [place] [address] 11/03/2024 8:00 AM EST Hospital Encounter ENDO OSS, Endoscopy Room [facility] [address] [facility] [place] [phone] Dallas Askew MD [address] [place] [address] 11/03/2024 8:00 AM EST - 11/03/2024 8:30 AM EST Surgery ENDO OSSC, Endoscopy Room [facility] [address] [facility] [place] [address] Dallas Askew MD [address] [facility] [place] [address] COLONOSCOPY FLEXIBLE PROXIMAL DIAGNOSTIC 11/18/2024 11:00 AM EST Office Visit Dermatology [facility] 200 [facility] [place] [address] Gladys Srivastava MD [address] [place] [address] [place] [address] 02/11/2025 1:30 PM EDT Office Visit Dermatology [address] [place] [address] Juanito Browning MD [address] [place] [address] 02/17/2025 11:30 AM EDT Office Visit Cardiology, [facility] [address] [facility] [place] [address] Uriel Warren DO 132 [facility] [place] [address] 02/17/2025 2:30 PM EDT Office Visit Hematology/Oncology [facility] 200 [facility] [place] [address] Leonarda Trevino CRNP [address] [place] [address] [place] [address] Scheduled Procedures Name Priority Associated Diagnoses Date/Ti [...] this encounter Medical Devices Implanted Type Area Chef Instructor Device Identifier Shelf Expiration Date Model / Serial / Lot Marker Coronary Amgm-Sd - [id number] Implanted:Qty: 2 on 11/10/2015 by Jorge Colón MD at OR [facility] N/A: Heart [employer] AM-SD / / [id number] Valve Heart Aortic Epic 25mm - [id number] - [id number] Implanted:Qty: 1 on 11/10/2015 by Jorge Colón MD at OR [facility] N/A: Heart [facility]EL : CARDIOVASCULAR 03/05/2019 [id number] 5-00 / [id number] / Sut Steel 6 M654g - [id number] Implanted:Qty: 4 on 11/10/2015 by Jorge Colón MD at OR [facility] N/A: Chest JNJ : [employer] M654G / / Lens Intraoc 16.5 - [id number] - [id number] Implanted:Qty: 1 on 08/22/2020 by Pola Lozano MD at OR [facility] Right: Eye [employer]OM[employer] 02/09/2025 [id number] / [id number] / [id number] Lens Intraoc 16.0 - [id number] - [id number] Implanted:Qty: 1 on 09/05/2020 by Pola Lozano MD at OR [facility] Left: Eye [employer]USCH [employer] LOMB 02/09/2025 [id number] 0 / [id number] / [id number] Clip Quick 2.8mm 230cm - [id number] Implanted:Qty: 1 on 04/23/2021 by Dallas Askew MD at ENDOSCOPY [facility] Colon [employer] 12/11/2023 [id number] .[id number] / / 13K Cath Thermodilution 6fr - [id number] Implanted:Qty: 1 on 04/09/2024 by Jose Cruz Hill DO at CARDIAC LABS [facility] [employer] [id number] 10/27/2025 [id number] / / [id number] Stent Xience Skypoint 3.25x15 - [id number] Implanted:Qty: 1 on 04/09/2024 by Jose Cruz Hill DO at CARDIAC LABS [facility] CASTELLANOS LABS : VASCULAR DEVICES 01/04/2027 [id number] / / [id number] documented as of this encounter Visit Diagnoses Diagnosis Hodgkin lymphoma, unspecified Hodgkin lymphoma type, unspecified body region (HCC)- Primary Normocytic anemia Anemia, unspecified Thrombophlebitis of superficial veins of left lower extremity Polyposis of colon Benign neoplasm of colon History of colon polyps Personal history of [...] Power of Attor baldev? No Care Teams Welder Oxyhydrogen Relationship Specialty Start Date End Date Chelle Vasquez DO [address] [place] [address] PCP - General Family Medicine 03/30/24 documented as of this encounter
--- OUTSIDE RECORDS SUMMARY | 2024-12-08 08:19 | External Medical Summary | Summary of Care ---
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 100 Tablet 06/08/20 24 Active Ventolin HFA 108 (90 Base) MCG/ACT Inhalation Aerosol Solution Inhale 2 Puffs by mouth as needed for Cough or Wheezing. 18 g 06/29/20 24 Active Lisinopril 10 MG Oral Tablet (Prinivil) Take 0.5 Tablets by mouth in the morning. 90 Tablet 06/29/20 24 Active Nitroglycerin 0.4 MG Sublingual Tablet Sublingual (Nitrostat) Place 1 Tablet under the tongue every 5 minutes as needed for Pain, Chest. up to 3 doses in 15 minutes 25 Tablet 11 07/22/2024 11:02 AM EDT 07/22/20 24 Active Atorvastatin Calcium 40 MG Oral Tablet (Lipitor) Take 1 Tablet by mouth in the morning. 100 Tablet 3 07/22/2024 11:02 AM EDT 07/22/20 Active Fluticasone-Salm eterol 115-21 MCG/ACT Inhalation Aerosol (Advair HFA) Inhale 2 Puffs by mouth in the morning and 2 Puffs before bedtime. 12 g 12 07/26/2024 2:37 PM EDT 07/26/20 Active Fluticasone-Salm eterol 115-21 MCG/ACT Inhalation Aerosol (Advair HFA) Inhale 2 Puffs by mouth in the morning and 2 Puffs before bedtime. 12 g 12 07/26/20 24 Active Compressor NebulizerIndicat ions:Acute cough,Wheeze,Hod gkin lymphoma, unspecified Hodgkin lymphoma type, unspecified body region (HCC),Acute bronchospasm Inhale via nebulizer. Use with medication every 4 hours. 1 Each 1 07/06/20 024 Discontin ued(Patie nt preferenc e/discont inuation) Albuterol Sulfate (2.5 MG/3ML) 0.083% Inhalation Nebulization Solution (Proventil)Indic ations:Acute cough,Wheeze,Hod gkin lymphoma, unspecified Hodgkin lymphoma type, unspecified body region (HCC),Acute bronchospasm Inhale 1 Vial via nebulizer every 4 hours as needed for Wheezing. 180 mL 5 07/07/2024 10:51 AM EDT 07/06/20 024 Discontin ued(Patie nt preferenc e/discont inuation) Azithromycin 250 MG Oral Tablet (Zithromax Z-Garth) Please take 2 tablets (500 mg) by mouth on day one, followed by 1 tablet (250 mg) by mouth for four days. 6 Tablet 07/26/2024 2:37 PM EDT 07/26/20 024 Discontin ued(Patie nt preferenc e/discont inuation) predniSONE 10 MG Oral Tablet (Deltasone) Take 2 tablets by mouth Daily in AM with meals for 5 day then 1 Tab daily with meals for 5 days then 1/2 tab daily with meals for 5 days then STOP. 18 Tablet 1 07/26/2024 2:37 PM EDT 07/26/20 024 Discontin ued(Patie nt preferenc e/discont inuation) Hospital, Clinic, or Other Facility Administered Medication Ordered Dose Route Frequency Start Date End Date Status Albuterol Sulfate (Proventil) (2.5 MG/3ML) 0.083% inhalation solution 2.5 mgIndications:Hodg kin lymphoma, unspecified Hodgkin lymphoma type, unspecified body region (HCC) 2.5 mg NEBULIZER PRN 04/06/2024 09/08/2024 Discont inued documented as of this encounter (statuses as of 09/08/2024) Active Problems Problem Noted Date Diagnosed Date [...] prox RCA 80% stenosis with placement of [id number] Xience Skypoint WEST, post-dilated with 3.5mm NC Balloon reducing stenosis to 0% with JAMES 3 flow Essential (primary) hypertension 12/08/2023 Hyperlipidemia 12/08/2023 Atherosclerosis of kiana co ronary artery without angina pectoris 12/08/2023 [...] as of this encounter (statuses as of 09/08/2024) Resolved Problems Problem Noted Date Diagnosed Date [...] as of this encounter (statuses as of 09/08/2024) Immunizations Name Administration Dates Next Due COVID-19 [...] Sign Reading Time Taken Comments Blood Pressure 136/82 09/08/2024 9:02 AM EST Pulse 96 09/08/2024 9:02 AM EST Temperature - - Respiratory Rate 16 09/08/2024 9:02 AM EST Oxygen Saturation - - Inhaled Oxygen Concentration - - Weight 102.9 kg (226 lb 12.8 oz) 09/08/2024 9:02 AM EST Height - - Body Mass Index 35.52 07/26/2024 11:52 AM EDT documented in this [...] Entry Date Author No 11/08/2015 5:21 PM Lavonen Bermudez RN documented in this encounter Progress Notes * Uriel Warren, - 09/08/2024 9:25 AM EST SUBJECTIVE: Patient returns today for follow up of CAD s/p coronary artery bypass grafting x2 and AVR 2015, RCA stenting 03/2024, labile hypertension, and dyslipidemia. Patient referred for cardiac catheterization March 2024 due to ongoing exertional symptoms, including lightheadedness, dyspnea, and hypotension. Results of coronary angiography listed below demonstrating 80% proximal RCA stenosis successfully treated with drug-eluting stent. Participating in cardiac rehab. Reports intermittent spells described as discomfort in his left scapular region and associated shortness of breath and lightheadedness. No events on telemetry while at cardiac rehab. No significant fluctuation in blood pressure during exercise. Notes nearly 8 lb weight gain over the past few weeks. Took additional torsemide over the weekend with minimal relief. Denies orthopnea or PND. Lower extremity edema more prominent. No signs/symptomsof GI/ blood loss. Tolerating medications listed below. Reduced atorvastatin to 40 mg daily due to hot flashes. These symptoms have improved with 40 mg dose. Cardiac catheterization report April 09, 2024: 1. Severe multivessel coronary artery disease 2. LMCA [employer] OF [employer]FA[employer]URING 100% ostial 3. 2/2 bypass widely patent SVG - LAD and SVG - OM2 4. 80% proximal RCA s/p WEST Exercise stress echo report December 25, 2023: The stress echo is negative for inducible ischemia. The low heart rate response to stress reduces the sensitivity of this test for the detection of coronary artery disease or ischemia. Exercise capacity is average . There was an attenuated heart rate response to exercise achieving only 71% age maximum. Blood pressure response was hypertensive The stress EKG response showed no evidence of ischemia. Nondiagnostic submaximal Stress EKG due to failure to reach 85% age predicted heart rate. There is a dyssynergic contraction pattern to the intraventricular septum wall segments otherwise dg normally The left ventricular ejection fraction increases normally with stress. The left ventricular wall motion with stress is normal. The left ventricular systolic function is normal. The LV wall thickness is mildly increased (concentric). The qualitative LV ejection fraction is 55-59% (normal). There is an aortic valve bioprosthetic present. Leaflets are not well visualized The aortic valve prosthesis systolic gradients are normal for this type prosthesis. The right ventricular cavity is mildly dilated. The right ventricular systolic function is mildly reduced Moderate mitral regurgitation is present. Moderate tricuspid regurgitation is present. The estimated pulmonary artery systolic pressure is 40-45mm Hg. Zio monitor report February 20, 2024: Indications: Dyspnea on exertion Duration: 13 days, 21 hours analyzed Preliminary Findings Prepared by Chavo Velazquez, JIM 03/12/24 CONCLUSIONS: Patient had a min HR of 40 bpm, max HR of 182 bpm, and avg HR of 86 bpm. Predominant underlying rhythm was Sinus Rhythm. 1 run of Ventricular Tachycardia occurred lasting 5 beats with a max rate of 182 bpm (avg 167 bpm). Second Degree AV Block-Mobitz I (Wenckebach) was present. Isolated SVEs were rare (<1.0%), and no SVE Couplets or SVE Triplets were present. Isolated VEs were rare (<1.0%, 1606), VE Triplets were rare (<1.0%, 1), and no VE Couplets were present. The patient recorded 20 event markers and 16 diary entries with symptoms of fatigue, lightheadedness. Episodes correlated with sinus rhythm and intermittently atrial and ventricular ectopic beats ROS: All others negative other than those noted in the HPI. Patient Active Problem List Diagnosis Actinic keratosis Hodgkin lymphoma (HCC) Aortic stenosis S/P AVR (aortic valve replacement) History of nonmelanoma skin cancer MGUS (monoclonal gammopathy of unknown significance) History of therapeutic radiation Essential (primary) hypertension Hyperlipidemia Atherosclerosis of kiana coronary artery without angina pectoris Angina at rest (HCC) S/P drug eluting coronary stent placement Calculus of gallbladder without cholecystitis without obstruction Monoallelic mutation of MITF gene Social History Tobacco Use Smoking status: Never Smokeless tobacco: Never Vaping Use Vaping status: Never Used Substance Use Topics Alcohol use: Yes Comment: occ Drug use: No Review of patient's allergies indicates: Allergen Reactions Allopurinol Rash Environmental [Pollen] Seasonal allergies Molds & Smuts Current Outpatient Medications Medication Sig Dispense Refill Fexofenadine HCl 180 MG Oral Tablet Take 1 Tablet by mouth in the morning. Vitamin D 50 MCG (1999 UT) Oral [...] mouth daily. Only taking at bedtime) 68 [id number] Probenecid 500 MG Oral Tablet (Benemid) Take [...] 2 Puffs before bedtime. 12 g 12 No current facility-administered medications for this visit. Lipid Panel Results: Results for orders placed or performed in visit on 10/02/23 LIPID PANEL WITHOUT DIRECT LDL Result Value Ref Range HOURS FASTING TRIGLYCERIDES-OUTSIDE LAB 69 CHOLESTEROL-OUTSIDE LAB 120 HDL-OUTSIDE LAB 38 CHOL/HDL RATIO-OUTSIDE LAB 3.2 LDL (CALCULATED)-OUTSIDE LAB 68 Lab Results Component Value Date/Time FRANCISCO Quispe 11/09/2015 04:17 AM CBC Results: Results for orders placed or performed in visit on 02/12/24 CBC Result Value Ref Range WBC 5.23 4.00 - 10.80 K/uL RBC 4.19 4.50 - 5.25 M/uL HGB 12.9 (L) 14.0 - 16.8 g/dL HCT 38.9 (L) 40.0 - 48.4 % MCV 92.8 82.0 - 99.5 fL MCH 30.8 27.0 - 34.0 pg MCHC 33.2 32.0 - 36.0 g/dL RDW 17.2 11.5 - 15.5 % PLT 333 140 - 400 K/uL MPV 11.3 6.6 - 11.1 fL nRBCs 0 <=0 /100 WBCs OBJECTIVE/PHYSICAL EXAMINATION: BP 136/82 (BP Site: Left Arm, BP Position: Sitting) | Pulse 96 | Resp 16 | Wt 102.9 kg (226 lb 12.8oz) | BMI 35.52 kg/m | BSA 2.21 m General: NAD, AAO x3, well nourished. Overweight. HEENT: Normocephalic. Atraumatic. Conjunctiva pink, no scleral icterus. No carotid bruits, the carotid upstrokes are brisk. No JVD. No HJR Heart: Regular rhythm, tachycardia, normal S-1 and S-2 no S-3 or S-4 gallop. 2/6 systolic ejection murmur heard best at the right 2nd intercostal space. PMI is not displaced. No RV heave. Lungs: + bilateral expiratory wheeze. Diminished breath sounds at the right base. Abdomen: Normal bowel sounds. Soft. Nontender. No masses or organomegaly. No abdominal bruits. Extremities: No clubbing, cyanosis, or edema.Pulses: radial=2/4. Neuro: No focal deficits. ASSESSMENT: 1. Acute on chronic respiratory insufficiency secondary to mild volume overload, heart failure withpreserved ejection fraction - Multifactorial chronic hypoxemic respiratory failure secondary to restrictive lung disease and right pleural effusion. - IR unable access pleural fluid for drainage 03/2024 2. Coronary artery disease status post coronary artery bypass grafting x2 (SVG to LAD, SVG to OM2) 2016 -cardiac catheterization performed 03/2024 demonstrating severe proximal RCA stenosis successfully treated with drug-eluting stent implantation. -participating in cardiac rehab -musculoskeletal (reproducible with palpation) left scapular discomfort noted 3. Moderate to severe aortic valve stenosis status post bioprosthetic AVR with a 20 mm [place] Ariel prosthesis. -normal bioprosthetic aortic valve function per echocardiogram 12/2023 4. Labile hypertension - controlled 5. Postoperative paroxysmal atrial fibrillation and junctional bradycardia without recurrence. - h/o chronic sinus tachycardia improved with addition of low-dose carvedilol -average heart rate 86 beats per minute per ZIO 02/2024 -isolated episode of second-degree AV block Mobitz type 1 per Zio 6. Dyslipidemia goal LDL less than 70 mg/dL -controlled with combination of atorvastatin and Zetia. -possible intolerance to high-dose atorvastatin (hot flashes) -atorvastatin reduced from 80 to 40 mg daily with improvement of symptoms 7. History of lymphoma and mantle radiation therapy in the 1970s. PLAN: Basic metabolic panel Ekg Increase torsemide to 20 mg twice daily for the next 3 days. Repeat basic metabolic panel in 1 week. Diuretic protocol reviewed. Instructed to take an additional 20 mg of oral torsemide if weight increases more than 2 lb in a 48 hour period, or 5 lb in 1 week. Monitor daily weight. Sodium restriction advised. Continue other cardiovascular medications including aspirin, clopidogrel, Zetia, lisinopril, and carvedilol as ordered. Antibiotic prophylaxis recommended prior to all dental procedures including routine cleaning. Continue cardiac rehab 3 days per week. Pulmonary medicine follow-up as scheduled. Follow Up: Return in about 3 months (around 12/09/2024). I spent a total of 40-54 minutes (exact time 40 mins) on the date of service in preparation, delivery, and documentation of the care provided to Michael Hughes excluding any time spent in the performance of separately billed services. Uriel Warren DO, [facility] Associate Cardiology - [facility] documented in this encounter Nursing Notes * Leonarda Hunt CMA - 09/08/2024 8:59 AM EST Examination Room: 11 Name: Michael Hughes Date of : (1955). Reason for Visit: follow up Interim Hospitalization(s): denies Problems/Concerns: fatigue, dizziness, ringing/fullness in ears "a few weeks ago" -- improving Chest Pain/SOB: denies [facility] Discussed: Not applicable [facility] a way you can [...] 10:20 AM EST Office Visit Pulmonary Medicine, [facility] [address] [place] [address] Marino Rodriguez [facility] [address] [facility] [address] 09/17/2024 2:20 PM EST Office Visit Family Practice [address] [place] [address] [address] [facility] [place] [address] Chelle Vasquez DO [address] [facility] [place] [address] 11/03/2024 8:00 AM EST Hospital Encounter ENDO [facility], Endoscopy Room [facility] [address] [place] [phone] Dallas Askew MD [address] [place] [address] 11/03/2024 8:00 AM EST - 11/03/2024 8:30 AM EST Surgery ENDO [facility], Endoscopy Room [facility] [address] [place] [phone] Dallas Askew MD [address] [place] [address] COLONOSCOPY FLEXIBLE PROXIMAL DIAGNOSTIC 11/18/2024 11:00 AM EST Office Visit Dermatology [facility] [address] [place] [address] Gladys Srivastava MD [address] [place] [address] 01/03/2025 11:00 AM EDT Office Visit Cardiology, [facility] [address] [place] [address] Uriel Warren, DO [address] [place] [address] 02/11/2025 1:30 PM EDT Office Visit Dermatology [facility] [address] [place] [address] Juanito Browning MD [address] [place] [address] 02/17/2025 11:30 AM EDT Office Visit Cardiology [facility] [address] [place] [address] Uriel Warren, DO [address] [place] [address] 02/17/2025 2:30 PM EDT Office Visit Hematology/Oncology [facility] [address] [place] [id number] Leonarda Trevino CRNP [address] [place] [address] Scheduled Orders Name Type Priority Associated Diagnoses Orde r Schedule EKG EKG Routine 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) S/P CABG x 2 Ordered: 09/08/2024 BASIC METABOLIC PANEL Lab Routine Acute on chronic heart failure with preserved ejection fraction (HCC) Expected: 09/15/2024 (Approximate), Expires: 09/08/2025 Scheduled Procedures Name Priority Associated Diagnoses Date/Ti [...] this encounter Medical Devices Implanted Type Area Assistant Clinical Nurse Manager Device Identifier Shelf Expiration Date Model / Serial / Lot Marker Coronary [facility] - [id number] Implanted:Qty: 2 on 11/10/2015 [place] [facility] [place] Heart [employer] [facility] / / [id number] Valve Heart Aortic Epic 25mm - [id number] - [id number] Implanted:Qty: 1 on 11/10/2015 by Jorge Colón [place] [facility] [place]/A: Heart [facility] : CARDIOVASCULAR 03/05/2019 [id number] 5-00 / [id number] / Sut Steel 6 M654g - [id number] Implanted:Qty: 4 on 11/10/2015 by Jorge Colón [place] [facility]/A: Chest JNJ : [employer] M654G / / Lens Intraoc 16.5 - [id number] - [id number] Implanted:Qty: 1 on 08/22/2020 by Pola Lozano MD at OR [facility] Right: Eye [employer]OM[employer] 02/09/2025 [id number] / [id number] / [id number] Lens Intraoc 16.0 - [id number] - [id number] Implanted:Qty: 1 on 09/05/2020 by Pola Lozano MD at OR [facility] Left: Eye [employer]CH [employer] LOMB 02/09/2025 [id number] / [id number] / [id number] Clip Quick 2.8mm 230cm - [id number] Implanted:Qty: 1 on 04/23/2021 by Dallas Askew MD at ENDOSCOPY [facility] Colon [employer] 12/11/2023 [id number] .[id number] / / 13K Cath Thermodilution 6fr - [id number] Implanted:Qty: 1 on 04/09/2024 by Jose Cruz Hill DO at [facility] [place] [employer] [id number] 10/27/2025 [id number] / / [id number] Stent Xience Skypoint 3.25x15 - [id number] Implanted:Qty: 1 on 04/09/2024 by Jose Cruz Hill DO at [facility] [facility] : VASCULAR DEVICES 01/04/2027 [id number] / / [id number] documented as of this encounter Visit Diagnoses Diagnosis Acute on chronic heart failure with preserved ejection fraction (HCC)- Primary 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 No Care Teams Neurological Physiotherapist Relationship Specialty Start Date End Date Chelle Vasquez DO [address] [place] [place] [address] PCP - General Family Medicine 03/30/24 documented as of this encounter
--- OUTSIDE RECORDS SUMMARY | 2024-12-08 08:19 | External Medical Summary | Summary of Care ---
Author Name Unknown Organization [facility] Address [address] [place] [address] Phone [phone] Care Team Providers Care Fur Operator Name Role Phone LuciecameliaChelle montiel Primary Care Provider [phone] Reason for Visit * Reason Comments Skin Check Pt here for routine full body skin exam, pt reports recent genetic testing indicating higher risk for MM. Pt has a few areas of concern on head/ neck he would like evaluated today.Hx: NMSC Encounter Details Date Type Department Care Team (Late st Contact Info) Description 08/13/2024 2:00 PM EDT Office Visit Dermatology [facility] [address] [place] [address] Juanito Browning MD [address] [place] [address] Hx of basal cell carcinoma*; Hx of squamous cell carcinoma; AK (actinic keratosis); Inflamed seborrheic keratosis Allergies Active Allergy Reactions Criticality Noted Date Comments Allopurinol Rash 04/17/2020 Pollen 04/22/2012 Seasonal allergies Molds & Smuts 07/01/2022 documented as of this encounter (statuses as of 08/13/2024) Medications Medication Sig Dispensed Refills Start Date [...] 1 Tablet before bedtime. 60 Tablet 5 03/23/2024 Active Aspirin 81 MG Oral Tablet Chewable Take 1 Tablet by mouth in the morning. Do not start before April 10, 2024. 90 Tablet 3 04/10/2024 Active Torsemide 20 MG Oral Tablet (Demadex) Take 1 Tablet by mouth in the morning. 90 Tablet 3 04/09/2024 Active Clopidogrel Bisulfate 75 MG Oral [...] for Cough or Wheezing. 18 g 3 06/29/2024 Active Lisinopril 10 MG Oral Tablet (Prinivil) Take 0.5 Tablets by mouth in the morning. 90 Tablet 3 06/29/2024 Active Compressor NebulizerIndication s:Acute cough,Wheeze,Hodgki n lymphoma, unspecified Hodgkin lymphoma type, unspecified body region (HCC),Acute bronchospasm Inhale via nebulizer. Use with medication every 4 hours. 1 Each 1 07/06/2024 Active Albuterol Sulfate (2.5 MG/3ML) 0.083% Inhalation Nebulization Solution (Proventil)Indicati ons:Acute cough,Wheeze,Hodgki n lymphoma, unspecified Hodgkin lymphoma type, unspecified body region (HCC),Acute bronchospasm Inhale 1 Vial via nebulizer every 4 hours as needed for Wheezing. 180 mL 5 07/06/2024 Active Nitroglycerin 0.4 MG Sublingual Tablet Sublingual (Nitrostat) Place 1 Tablet under the tongue every 5 minutes as needed for Pain, Chest. up to 3 doses in 15 minutes 25 Tablet 11 07/22/2024 Active Atorvastatin Calcium 40 MG Oral Tablet (Lipitor) Take 1 Tablet by mouth in the morning. 100 Tablet 3 07/22/2024 Active Fluticasone-Salmete rol 115-21 MCG/ACT Inhalation Aerosol (Advair HFA) Inhale 2 Puffs by mouth in the morning and 2 Puffs before bedtime. 12 g 12 07/26/2024 Active Spiriva Respimat 2.5 MCG/ACT Inhalation Aerosol Solution (Tiotropium [place] Monohydrate) Inhale 2 Puffs by mouth in [...] as of this encounter (statuses as of 08/13/2024) Active Problems Problem Noted Date Diagnosed Date [...] prox RCA 80% stenosis with placement of 3.85r16sg Xience Skypoint WEST, post-dilated with 3.5mm NC Balloon reducing stenosis to 0% with JAMES 3 flow Essential (primary) hypertension 12/08/2023 Hyperlipidemia 12/08/2023 Atherosclerosis of [place] co ronary artery without angina pectoris 12/08/2023 [...] as of this encounter (statuses as of 08/13/2024) Resolved Problems Problem Noted Date Diagnosed Date [...] as of this encounter (statuses as of 08/13/2024) Immunizations Name Administration Dates Next Due COVID-19 [...] No 11/08/2015 documented as of this encounter Progress Notes * Juanito Browning MD - 08/13/2024 2:05 PM EDT Aidee Hughes is a 69 year old male here for follow up. History of numerous nonmelanoma skin cancer. 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 Tender area scalp and left cheek. Lesion on leg gets irritated. Other skin problems today: no Current Outpatient Medications Medication Sig Dispense Refill [...] mouth daily. Only taking at bedtime) 68 Setpgj31 Probenecid 500 MG Oral Tablet (Benemid) Take [...] for Cough or Wheezing. 18 g 3 Compressor Nebulizer Inhale via nebulizer. Use [...] Respimat 2.5 MCG/ACT Inhalation Aerosol Solution (Tiotropium [place] Monohydrate) Inhale 2 Puffs by mouth in the morning. 4 g 0 predniSONE 10 MG Oral Tablet (Deltasone) [...] 2 Puffs before bedtime. 12 g 12 Lisinopril 10 MG Oral Tablet (Prinivil) Take 0.5 Tablets by mouth in the morning. 90 Tablet 3 Azithromycin 250 MG Oral Tablet (Zithromax Z-Garth) Please take 2 tablets (500 mg) by mouth on day one, followed by 1 tablet (250 mg) by mouth for four days. (Patient not taking: Reported on 08/13/2024)6 Tablet 0 Clotrimazole 10 MG Mouth/Throat Coral (Mycelex Coral) Take 1 Lozenge by mouth 5 times a day for 14 days. Allow tablet to slowly dissolve in your mouth 70 Coral 0 Current Facility-Administered Medications Medication Dose Route Frequency Provider Last Rate Last Admin Albuterol Sulfate (Proventil) (2.5 MG/3ML) 0.083% inhalation solution 2.5 mg 2.5 mg Nebulizer PRN 2.5 mg at 04/06/24 1223 O. Well-developed male type 2 skin, no acute distress, alert and oriented Complete body examined and normal except has rough keratotic papules scalp, arm, cheek; irritated stuck on keratotic papule rt knee Assessment: / Plan: 1. Actinic keratoses Cryosurgery explained to the patient, consent obtained, patient, site and procedure verified, and then cryotherapy was performed with Liquid Nitrogen via cryo spray unit to 6 lesions. Location noted in physical exam. Post op course explained. Pt instructed to contact me if treated lesions persist or recur. 2. History of nonmelanoma skin cancer 3. 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 Inflamed seborrheic keratosis Cryosurgery explained to the patient, consent obtained, patient, site and procedure verified, and then cryotherapy was performed with Liquid Nitrogen via cryo spray unit to 1 lesions. Location noted in physical exam. Post op course explained. Pt instructed to contact me if treated lesions persist or recur. Follow up: continue 6 mo checks Juanito Browning MD 08/13/2024 2:05 PM documented in this encounter Nursing Notes * Enriqueta Mancilla CMA - 08/13/2024 2:01 PM EDT Chief Complaint Patient presents with Skin Check Pt here for routine full body skin exam, pt reports recent genetic testing indicating higher risk for MM. Pt has a few areas of concern on head/ neck he would like evaluated today. Hx: NMSC documented in this encounter Plan of Treatment Upcoming Encounters Date Type Department Care Team (Latest Contact Info) Description 08/19/2024 8:30 AM EST Office Visit Hematology/Oncology [facility] 200 [place] [address] Leonarda Trevino CRNP 400 [facility] [place] [address] 09/14/2024 10:20 AM EST Office Visit Pulmonary Medicine, [facility] [address] [facility] [place] [address] Marino [facility] MD [address] [facility] [address] 09/17/2024 2:20 PM EST Office Visit Family Practice [address] [place] [address] 293 [facility] [place] [address] Chelle Vasquez DO 293 [place] [address] 11/03/2024 8:00 AM EST Hospital Encounter ENDO [facility], Endoscopy Room [facility] [address] [place] [phone] Dallas Askew MD [address] [place] [address] 11/03/2024 8:00 AM EST - 11/03/2024 9:00 AM EST Surgery ENDO [facility], Endoscopy Room [facility] [address] [place] [phone] Dlalas Askew MD [address] [facility] [place] [address] COLONOSCOPY FLEXIBLE PROXIMAL DIAGNOSTIC 11/18/2024 11:00 AM EST Office Visit Dermatology [facility] [address] [facility] [place] [address] Gladys Srivastava MD [address] [facility] [place] [address] 02/11/2025 1:30 PM EDT Office Visit Dermatology [facility] [address] [facility] [place] [address] Juanito Browning MD 16 [place] [address] 02/17/2025 11:30 AM EDT Office Visit Cardiology, [facility] [address] [place] [address] Uriel Warren, DO [address] [facility] [place] [address] 02/17/2025 2:30 PM EDT Office Visit Hematology/Oncology [facility] [address] [facility] [place] [phone] Leonarda Trevino CRNP [address] [place] [address] Scheduled Procedures Name Priority Associated Diagnoses Date/Ti co COLONOSCOPY FLEXIBLE PROXIMAL DIAGNOSTIC History of colon [...] this encounter Medical Devices Implanted Type Area Supervisor Public Health Nursing Device Identifier Shelf Expiration Date Model / Serial / Lot Marker Coronary [facility] - [id number] Implanted:Qty: 2 on 11/10/2015 by Jorge Colón MD at OR [facility] N/A: Heart [employer] [facility] / / [id number] Valve Heart Aortic Epic 25mm - [id number] - [id number] Implanted:Qty: 1 on 11/10/2015 by Jorge Colón MD at OR [facility] N/A: Heart ST LENNY : CARDIOVASCULAR 03/05/2019 [id number] 5- / [id number] 1 / Sut Steel 6 M654g - [id number] Implanted:Qty: 4 on 11/10/2015 by Jorge Colón MD at OR [facility] N/A: Chest JNJ : [employer] M654G / / Lens Intraoc 16.5 - [id number] - [id number] Implanted:Qty: 1 on 08/22/2020 by Pola Lozano MD at OR [facility] Right: Eye [employer]USCH [employer] LOMB 02/09/2025 [id number] 5 / [id number] 39 / [id number] Lens Intraoc 16.0 - [id number] - [id number] Implanted:Qty: 1 on 09/05/2020 by Pola Lozano MD at OR [facility] Left: Eye BAUSCH & LOMB 02/09/2025 [id number] 0 / [id number] / [id number] Clip Quick 2.8mm 230cm - [id number] Implanted:Qty: 1 on 04/23/2021 by Dallas Askew MD at ENDOSCOPY [facility] Colon [employer] 12/11/2023 HX-202UR .A / / 13K Cath Thermodilution 6fr - [id number] Implanted:Qty: 1 on 04/09/2024 by Jose Cruz Hill DO at CARDIAC LABS [facility] [employer] D[employer]AN [id number] 10/27/2025 [id number] / / [id number] Stent Xience Skypoint 3.25x15 - [id number] Implanted:Qty: 1 on 04/09/2024 by Jose Cruz Hill DO at CARDIAC LABS [facility] [employer]LL[employer] LABS : VASCULAR DEVICES 01/04/2027 [id number] / / [id number] documented as of this encounter Visit Diagnoses Diagnosis Hx of basal cell carcinoma- Primary Personal history of other malignant neoplasm of skin Hx of squamous cell carcinoma Personal history of malignant neoplasm of other site AK (actinic keratosis) Actinic keratosis Inflamed seborrheic keratosis History of colon polyps Personal history of [...] Power of Attor baldev? No Care Teams Fur Operator Relationship Specialty Start Date End Date Chelle Vasquez DO [address] [place] [address] PCP - General Family Medicine 03/30/24 documented as of this encounter
--- OUTSIDE RECORDS SUMMARY | 2024-12-08 08:19 | External Medical Summary | Summary of Care ---
Author Name Unknown Organization [facility] Address [address] [facility] [place] [address] Phone [phone] Care Team Providers Care Compounding And Finishing Supervisor Name Role Phone Chelle Vasquez DO Primary Care Provider [phone] Reason for Visit * Reason Comments Outpatient Testing Encounter Details Date Type Department Care Team (Late st Contact Info) Description 09/14/2024 9:50 AM EST Laboratory Laboratory, [facility] [address] [facility] [place] [phone] [facility] 132 [facility] [place] [address] Acute on chronic heart failure with preserved [...] g 12 07/26/2024 2:37 PM EDT Active Fluticasone-Pedro meterol 115-21 MCG/ACT Inhalation Aerosol (Advair HFA) Inhale 2 Puffs by mouth in the morning and 2 Puffs before bedtime. 12 g 12 4 Active documented as of this encounter [...] prox RCA 80% stenosis with placement of 3.31w46pb Xience Skypoint WEST, post-dilated with 3.5mm NC Balloon reducing stenosis to 0% with JAMES 3 flow Essential (primary) hypertension 12/08/2023 Hyperlipidemia 12/08/2023 Atherosclerosis of [place] co ronary artery without angina pectoris [...] 10:20 AM EST Office Visit Pulmonary Medicine, [address] [place] [address] Marino Rodriguez MD [address] [facility] [place] [address] Arrived 09/17/2024 2:20 PM EST Office Visit Family Practice [address] [place] [address] 293 [place] [address] Chelle Vasquez, DO 293 [place] [address] 11/03/2024 8:00 AM EST Hospital Encounter ENDO [facility], Endoscopy Room [facility] 132 [facility] [place] [phone] Dallas Askew MD 132 [facility] [place] [address] 11/03/2024 8:00 AM EST - 11/03/2024 8:30 AM EST Surgery ENDO [facility], Endoscopy Room [facility] 132 [facility] [place] [phone] Dallas Askew MD 132 [place] [address] COLONOSCOPY FLEXIBLE PROXIMAL DIAGNOSTIC 11/18/2024 11:00 AM EST Office Visit Dermatology [facility] 200 [facility] [place] [address] Gladys S[facility]astava MD 200 [facility] [address] 01/03/2025 11:00 AM EDT Office Visit Cardiology, [facility] 132 [facility] [place] [address] Uriel Warren, DO 132 [facility] [place] [address] 02/11/2025 1:30 PM EDT Office Visit Dermatology [facility] [address] [place] [address] Juanito Browning MD [address] [place] [address] 02/17/2025 11:30 AM EDT Office Visit Cardiology, [facility] [address] [place] [address] Uriel Warren DO [address] [place] [address] 02/17/2025 2:30 PM EDT Office Visit Hematology/Oncology [facility] 200 [facility] [address] Leonarda Trevino CRNP [address] [place] [address] [place] [address] Pending Results Name Type Priority Associated Diagnoses Date /Time BASIC METABOLIC PANEL Lab Routine Acute on chronic heart failure with preserved ejection fraction (HCC) 09/14/2024 9:56 AM EST Scheduled Procedures Name Priority Associated [...] this encounter Medical Devices Implanted Type Area Mainspring Winder And Oiler Device Identifier Shelf Expiration Date Model / Serial / Lot Marker Coronary [facility] - [id number] Implanted:Qty: 2 on 11/10/2015 by Jorge Colón MD [place] [facility] N/A: Heart [employer] [facility] / / [id number] Valve Heart Aortic Epic 25mm - [id number] - [id number] Implanted:Qty: 1 on 11/10/2015 by Jorge Colón MD [place] [facility] N/A: Heart ST LENNY : CARDIOVASCULAR 03/05/2019 [id number] 5-00 / [id number] 1 / Sut Steel 6 M654g - [id number] Implanted:Qty: 4 on 11/10/2015 by Jorge Colón MD at [place] [facility] N/A: Chest JNJ : [employer] M654G / / Lens Intraoc 16.5 - [id number] - [id number] Implanted:Qty: 1 on 08/22/2020 by Pola Lozano MD at OR [facility] Right: Eye BAUSCH & LOMB 02/09/2025 [id number] 5 / [id number] 39 / [id number] Lens Intraoc 16.0 - [id number] - [id number] Implanted:Qty: 1 on 09/05/2020 by Pola Lozano MD at OR [facility] Left: Eye BAUSCH & LOMB 02/09/2025 [id number] 0 / [id number] 35 / [id number] Clip Quick 2.8mm 230cm - [id number] Implanted:Qty: 1 on 04/23/2021 by Dallas Askew MD at ENDOSCOPY [facility] Colon [employer] 12/11/2023 HX-202UR .A / / 13K Cath Thermodilution 6fr - [id number] Implanted:Qty: 1 on 04/09/2024 by Jose Cruz Hill DO at [facility]IAC [facility] [employer] [id number] 10/27/2025 [id number] / / [id number] Stent Xience Skypoint 3.25x15 - [id number] Implanted:Qty: 1 on 04/09/2024 by Jose Cruz Hill DO at [facility]ARDIAC LABS [facility] [employer]LL[employer] LABS : VASCULAR DEVICES 01/04/2027 [id number] / / [id number] documented as of this encounter Visit Diagnoses [...] Power of Attor baldev? No Care Teams Compounding And Finishing Supervisor Relationship Specialty Start Date End Date Chelle Vasquez DO 293 [place] [address] PCP - General Family Medicine 03/30/24 documented as of this encounter
--- OUTSIDE RECORDS SUMMARY | 2024-12-08 08:20 | External Medical Summary ---
Author Name Unknown Address Unknown Organization K01:[facility] - [address] [place] [address] Laboratory Report Ordering Provider Test Date Status AARON WALKER 08/12/2024 10:07:46 Final Observation Date Value Abnormality Reference (Units ) Status Iron 08/12/2024 10:07:46 80 45-176 (ug /dL) Final Iron-binding capacity 08/12/2024 10:07:46 277 250-425 (ug/dL) Final Transferrin Sat % 08/12/2024 10:07:46 29 15 -55 (%) Final Performing Location [facility] - [address] [place] [address]
--- OUTSIDE RECORDS SUMMARY | 2024-12-08 08:20 | External Medical Summary | Summary of Care ---
Author Name Unknown Organization [facility] Address [address] [facility] [place] [address] Phone [phone] Care Team Providers Care Editor Department Name Role Phone Chelle Vasquez DO Primary Care Provider [phone] Reason for Visit * Reason Comments Nurse Documentation Nurse visit for feel ing that he is getting something in his throat. Encounter Details Date Type Department Care Team (Late st Contact Info) Description 08/06/2024 10:30 AM EDT Nurse Only Family Practice 65 [facility] 293 [place] [address] College, Nurse [facility] Prac [address] [address] Nurse Documentation (Nurse visit for feeli... Allergies Active Allergy Reactions Criticality Noted Date Comments Allopurinol Rash 04/17/2020 Pollen 04/22/2012 Seasonal allergies Molds & Smuts 07/01/2022 documented as of this encounter (statuses as of 08/06/2024) Medications Medication Sig Dispensed Refills Start Date [...] Respimat 2.5 MCG/ACT Inhalation Aerosol Solution (Tiotropium [place] Monohydrate) Inhale 2 Puffs by mouth in [...] as of this encounter (statuses as of 08/06/2024) Active Problems Problem Noted Date Diagnosed Date [...] prox RCA 80% stenosis with placement of 3.75t60tn Xience Skypoint WEST, post-dilated with 3.5mm NC Balloon reducing stenosis to 0% with JAMES 3 flow Essential (primary) hypertension 12/08/2023 Hyperlipidemia 12/08/2023 Atherosclerosis of [place] co ronary artery without angina pectoris 12/08/2023 [...] as of this encounter (statuses as of 08/06/2024) Resolved Problems Problem Noted Date Diagnosed Date [...] as of this encounter (statuses as of 08/06/2024) Immunizations Name Administration Dates Next Due COVID-19 [...] as of this encounter Progress Notes * Jamey Aden DO - 08/06/2024 11:46 AM EDT Will treat empirically for thrush documented in this encounter Nursing Notes * Rea Benitez LPN - 08/06/2024 10:49 AM EDT Patient reports he feels he is getting something in his throat. Has been on antibiotic and prednisone. Does use multiple inhalers. States he does rinse his mouth after using inhalers. Symptoms started beginning of this week. Reports voice is hoarse, throat is sore at times, sore when swallowing which has been getting worse. States tongue is sore over the last day or 2. States he did have some white patches on his tongue, worse yesterday than today. Denies fever, runny nose, headache, nausea, vomiting, diarrhea. Reports occasional cough. Reports throat is more sore today. No obvious white patches noted in mouth, on tongue. Slight yellowish discoloration noted on tongue. Spoke to Dr. Aden. Pt states he is agreeable to Mycelex Coral, if ordered, would like it sent [facility]. documented in this encounter Plan of Treatment Upcoming Encounters Date Type Department Care Team (Latest Contact Info) Description 08/12/2024 10:00 AM EDT Laboratory Laboratory, [facility] [place] [phone] [facility] [address] [facility] [place] [address] 08/13/2024 2:00 PM EDT Office Visit Dermatology [facility] 200 [facility] [place] [address] Juanito Browning MD 16 [place] [address] 08/19/2024 8:30 AM EST Office Visit Hematology/Oncolog y [facility] 200 [facility] [place] [phone] Leonarda Trevino CRNP [address] [place] [address] [facility] [place] [address] 09/14/2024 10:20 AM EST Office Visit Pulmonary Medicine, [facility] 132 [facility] [place] [address] Marino Rodriguez MD [address] [place] [address] 09/17/2024 2:20 PM EST Office Visit Family Practice [address] [place] [address] 293 [place] [address] Chelle Vasquez DO 293 [place] [address] 11/03/2024 8:00 AM EST Hospital Encounter ENDO [facility], Endoscopy Room [facility] [address] [place] [phone] Dallas Askew MD [address] [place] [address] 11/03/2024 8:00 AM EST - 11/03/2024 9:00 AM EST Surgery ENDO [facility], Endoscopy Room [facility] [address] [place] [phone] Dallas Askew MD [address] [place] [address] COLONOSCOPY FLEXIBLE PROXIMAL DIAGNOSTIC 11/18/2024 11:00 AM EST Office Visit Dermatology [facility] 200 [facility] [place] [address] Gladys Srivastava MD 200 [facility] [place] [address] 02/17/2025 11:30 AM EDT Office Visit Cardiology, [facility] [address] [place] [address] Uriel Warren DO [address] [place] [address] 02/17/2025 2:30 PM EDT Office Visit Hematology/Oncolog y [facility] 200 [facility] [place] [address] Leonarda Trevino CRNP 400 [facility] [place] [id number] Scheduled Procedures Name Priority Associated Diagnoses Date/Ti [...] this encounter Medical Devices Implanted Type Area Web Solutions Architect Device Identifier Shelf Expiration Date Model / Serial / Lot Marker Coronary [facility] - [id number] Implanted:Qty: 2 on 11/10/2015 by Jorge Colón [place] [facility] [place]A: Heart [employer]-[facility] / / [id number] Valve Heart Aortic Epic 25mm - [id number] - [id number] Implanted:Qty: 1 on 11/10/2015 by Jorge Colón [place] [facility] N/A: Heart ST LENNY : CARDIOVASCULAR 03/05/2019 [id number] 5-00 / [id number] 1 / Sut Steel 6 M654g - [id number] Implanted:Qty: 4 on 11/10/2015 by Jorge Colón MD [place] [facility] N/A: Chest JNJ : [employer] M654G / / Lens Intraoc 16.5 - [id number] - [id number] Implanted:Qty: 1 on 08/22/2020 by Pola Lozano MD at OR [facility] Right: Eye BAUSCH & LOMB 02/09/2025 [id number] 5 / [id number] 39 / [id number] Lens Intraoc 16.0 - [id number] - [id number] Implanted:Qty: 1 on 09/05/2020 by Pola Lozano MD at OR [facility] Left: Eye BAUSCH & LOMB 02/09/2025 [id number] 0 / [id number] / [id number] Clip Quick 2.8mm 230cm - [id number] Implanted:Qty: 1 on 04/23/2021 by Dallas Askew MD at ENDOSCOPY [facility] Colon [employer] 12/11/2023 HX-202UR .A / / 13K Cath Thermodilution 6fr - [id number] Implanted:Qty: 1 on 04/09/2024 by Jose Cruz Hill DO at [facility] [employer] [id number] 10/27/2025 [id number] / / [id number] Stent Xience Skypoint 3.25x15 - [id number] Implanted:Qty: 1 on 04/09/2024 by Jose Cruz Hill DO at [facility]ARD[facility] [employer] LABS : VASCULAR DEVICES 01/04/2027 [id number] / / [id number] documented as of this encounter Visit Diagnoses Diagnosis Thrush- Primary Candidiasis of mouth History of colon polyps Personal history of [...] of Attor baldev? No Care Teams Editor Department Relationship Specialty Start Date End Date Chelle Vasquez DO [address] [place] [address] PCP - General Family Medicine 03/30/24 documented as of this encounter
--- OUTSIDE RECORDS SUMMARY | 2024-12-08 08:20 | External Medical Summary ---
Author Name Unknown Address Unknown Organization [id number]:[facility] [place] [address] Laboratory Report Ordering Provider Test Date Status AARON WALKER 08/12/2024 10:07:46 Final Observation Date Value Abnormality Reference (Units ) Status WBC, Total 08/12/2024 10:07:46 7.54 4.00-10.8 0 (K/uL) Final RBC 08/12/2024 10:07:46 3.64 4.50-5.25 (M/uL) Final Hemoglobin 08/12/2024 10:07:46 11.8 Below low normal 14 .0-16.8 (g/dL) Final HCT 08/12/2024 10:07:46 36.1 Below low normal 40. 0-48.4 (%) Final MCV 08/12/2024 10:07:46 99.2 82.0-99.5 (fL) Final MCH 08/12/2024 10:07:46 32.4 27.0-34.0 (pg) Final MCHC 08/12/2024 10:07:46 32.7 32.0-36.0 (g/dL) Final RDW 08/12/2024 10:07:46 19.5 11.5-15.5 (%) Final Platelets 08/12/2024 10:07:46 365 140-400 (K /uL) Final MPV 08/12/2024 10:07:46 9.8 6.6-11.1 ( fL) Final Performing Location [facility] [place] [address]
--- OUTSIDE RECORDS SUMMARY | 2024-12-08 08:20 | External Medical Summary ---
Author Name Unknown Address Unknown Organization [id number]:[facility] - [address] [place] [address] Laboratory Report Ordering Provider Test Date Status DENISEAARON 08/12/2024 10:07:46 Final Observation Date Value Abnormality Reference (Units ) Status Vitamin B12 08/12/2024 10:07:46 339 195-6915 (pg/mL) Final Performing Location [facility] - [address] [place] [address]
--- OUTSIDE RECORDS SUMMARY | 2024-12-08 08:20 | External Medical Summary | Summary of Care ---
Author Name Unknown Organization [facility] Address [address] [place] [address] Phone [phone] Care Team Providers Care Wine Manager Name Role Phone Chelle Vasquez DO Primary Care Provider Reason for Visit * Reason Onset Date Comments Appointment 08/06/2024 Yeast infection Encounter Details Date Type Department Care Team (Late st Contact Info) Description 08/06/2024 Telephone Family Practice 65 [facility] [place] [address] [place] [address] Chelle Vasquze DO [address] [place] [address] Appointment (Yeast infection) Allergies Active Allergy Reactions Criticality Noted Date [...] start before April 10, 2024. 90 Tablet 04/10/2024 Active Torsemide 20 MG Oral Tablet [...] Respimat 2.5 MCG/ACT Inhalation Aerosol Solution (Tiotropium [place] Monohydrate) Inhale 2 Puffs by mouth in the morning. 4 g 07/26/2024 08/25/2024 Active Azithromycin 250 MG Oral Tablet (Zithromax Z-Garth) Please take 2 tablets (500 mg) by mouth on day one, followed by 1 tablet (250 mg) by mouth for four days. 6 Tablet 07/26/2024 Active predniSONE 10 MG Oral Tablet (Deltasone) [...] before bedtime. 12 g 12 07/26/2024 Active Hospital, Clinic, or Other Facility Administered [...] prox RCA 80% stenosis with placement of 3.73p12mg Xience Skypoint WEST, post-dilated with 3.5mm NC Balloon reducing stenosis to 0% with JAMES 3 flow Essential (primary) hypertension 12/08/2023 Hyperlipidemia 12/08/2023 Atherosclerosis of [place] ronary artery without angina pectoris 12/08/2023 [...] Hx of BCC left lateral neck - 2012 documented as of this encounter (statuses as [...] No 11/08/2015 documented as of this encounter Miscellaneous Notes * Telephone Encounter - Valerie King RN - 08/06/2024 9:48 AM EDT Spoke with Dr Aden-states to bring if for nurse visit to look at tongue. Call to pt-pt agreeable-scheduled appt for 10;30 nurse visit. * Telephone Encounter - Valerie King RN - 08/06/2024 9:40 AM EDT Call to pt-last few days-throat slightly sore, raspy voice-?fungal infection. Has been on antibiotics, prednisone, inhalers-has been rinsing mouth. Has a little bit of white coating on tongue. No fever. Tongue is sore. No cough. He was on the above medications for lung issues-ventolin inhaler, spiriva, prednisone, advair, azithromycin, albuterol nebulizer. Told Dr Vasquez not in office today butwould have Dr Aden review for his recommendations. * Telephone Encounter - Caryl Fleming OSA - 08/06/2024 8:29 AM EDT Thinks he has a yeast infection in his mouth Would like an appointment Please call documented in this encounter Plan of Treatment Upcoming Encounters Date Type Department Care Team (Latest Contact Info) Description 08/06/2024 10:30 AM EDT Nurse Only Family Practice 65 [facility] [address] [place] [address] College, Nurse Fam Prac [address] [address] 08/12/2024 10:00 AM EDT Laboratory Laboratory, [facility] 132 [facility] [place] [address] [facility] 132 [facility] [place] [address] 08/13/2024 2:00 PM EDT Office Visit Dermatology [facility] 200 [facility] [place] [address] Juanito Browning MD 16 [place] [address] 08/19/2024 8:30 AM EST Office Visit Hematology/Oncolog y [facility] 200 [place] [phone] Leonarda Trevino CRNP [address] [place] [address] 09/14/2024 10:20 AM EST Office Visit Pulmonary Medicine, [facility] 132 [facility] [place] [address] Marino Rodriguez MD [address] [facility] [place] [address] 09/17/2024 2:20 PM EST Office Visit Family Practice 65 [facility] 293 [place] [address] Chelle Vasquez, 293 [place] [address] 11/03/2024 8:00 AM EST Hospital Encounter ENDO [facility], Endoscopy Room [facility] [address] [place] [phone] Dallas Askew MD [address] [place] [address] 11/03/2024 8:00 AM EST - 11/03/2024 9:00 AM EST Surgery ENDO [facility], Endoscopy Room [facility] [address] [place] [phone] Dallas Askew MD [address] [place] [address] COLONOSCOPY FLEXIBLE PROXIMAL DIAGNOSTIC 11/18/2024 11:00 AM EST Office Visit Dermatology [facility] 200 [facility] [place] [address] Gladys Srivastava MD 200 [facility] [place] [address] 02/17/2025 11:30 AM EDT Office Visit Cardiology, [facility] 132 [facility] [place] [address] Uriel Warren DO 132 [facility] [place] [address] 02/17/2025 2:30 PM EDT Office Visit Hematology/Oncolog y [facility] 200 [facility] [place] [phone] Leonarda Trevino CRNP [address] [place], [place] [address] [address] Scheduled Procedures Name Priority Associated Diagnoses Date/Ti [...] this encounter Medical Devices Implanted Type Area Protective Services Officer Device Identifier Shelf Expiration Date Model / Serial / Lot Marker Coronary Amgm-Sd - [id number] Implanted:Qty: 2 on 11/10/2015 by Jorge Colón MD at [place] [facility] [place]/A: Heart [employer] AMGM-SD / / [id number] Valve Heart Aortic Epic 25mm - [id number] - [id number] Implanted:Qty: 1 on 11/10/2015 by Jorge Colón MD [place] [facility] [place] N/A: Heart ST LENNY : CARDIOVASCULAR 03/05/2019 [id number] 5-00 / [id number] / Sut Steel 6 M654g - [id number] Implanted:Qty: 4 on 11/10/2015 by Jorge Colón MD at [place] [facility] [place] N/A: Chest JNJ : [employer] M654G / / Lens Intraoc 16.5 - [id number] - [id number] Implanted:Qty: 1 on 08/22/2020 by Pola Lozano MD at OR [facility] Right: Eye BAUSCH & LOMB 02/09/2025 [id number] 5 / [id number] / [id number] Lens Intraoc 16.0 - [id number] - [id number] Implanted:Qty: 1 on 09/05/2020 by Pola Lozano MD at OR [facility] Left: Eye BAUSCH & LOMB 02/09/2025 [id number] 0 / [id number] / [id number] Clip Quick 2.8mm 230cm - [id number] Implanted:Qty: 1 on 04/23/2021 by Dallas Askew MD at ENDOSCOPY [facility] Colon [employer] 12/11/2023 HX-202UR .A / / 13K Cath Thermodilution 6fr - [id number] Implanted:Qty: 1 on 04/09/2024 by Jose Cruz Hill DO at CARDIAC LABS [facility] [place] [employer] DYLAN [id number] 10/27/2025 [id number] / / [id number] Stent Xience Skypoint 3.25x15 - [id number] Implanted:Qty: 1 on 04/09/2024 by Jose Cruz Hill DO at CARDIAC LABS [facility] [place] [employer]STELLANOS LABS : VASCULAR DEVICES 01/04/2027 [id number] / / [id number] documented as of this encounter Advance Directives [...] Power of Attor baldev? No Care Teams Wine Manager Relationship Specialty Start Date End Date Chelle Vasquez DO [address] [place] [facility] [place] [address] PCP - General Family Medicine 03/30/24 documented as of this encounter
--- OUTSIDE RECORDS SUMMARY | 2024-12-08 08:20 | External Medical Summary ---
Author Name Unknown Address Unknown Organization K01:LABORATORY [facility] [place] - [address] [place] [address] Laboratory Report Ordering Provider Test Date Status AARON WALKER 08/12/2024 10:07:46 Final Observation Date Value Abnormality Reference (Units ) Status Folic Acid 08/12/2024 10:07:46 4.7 >4.5 (ng/ mL) Final Performing Location [facility] - [address] [place] [address]
--- OUTSIDE RECORDS SUMMARY | 2024-12-08 08:20 | External Medical Summary ---
Author Name Unknown Address Unknown Organization K0G:[facility] [place] [address] - [address] [place] [address] Laboratory Report Ordering Provider Test Date Status AARON WALKER 08/12/2024 10:07:46 Final Observation Date Value Abnormality Reference (Units ) Status SYNC LEUKOCYTES IN BLOOD BY AUTOMATED COUNT 08/12/2024 10:07:46 7.54 4.00-10.80 (K/uL) Final Segs 08/12/2024 10:07:46 68.8 40.0-75.0 (%) Final Lymphs % 08/12/2024 10:07:46 16.7 Below low normal 18.0-42.0 (%) Final Monos 08/12/2024 10:07:46 11.8 Above high normal 1.0-11.0 (%) Final Eosinophils 08/12/2024 10:07:46 2.4 0.0-6.0 (%) Final Basos 08/12/2024 10:07:46 0.3 0.0-2.0 (%) Final Absolute Segs 08/12/2024 10:07:46 5.19 1.80-7.70 (K/uL) Final Lymphs, absolute 08/12/2024 10:07:46 1.26 1.00-4.80 (K/ul) Final Monos, Abs 08/12/2024 10:07:46 0.89 0.00-1.10 (K/uL) Final Eos, Abs 08/12/2024 10:07:46 0.18 0.00-0.70 (K/uL) Final Basos, Abs 08/12/2024 10:07:46 0.02 0.00-0.20 (K/uL) Final Performing Location [facility] [address] - [address] [place] [address]
--- OUTSIDE RECORDS SUMMARY | 2024-12-08 08:20 | External Medical Summary | Summary of Care ---
Author Name Unknown Organization [facility] Address [address] [place] [place] [address] Phone [phone] Care Team Providers Care Pepper Cutter Name Role Phone Chelle Vasquez DO Primary Care Provider Reason for Visit * Reason Onset Date Comments Test Results 07/21/2024 Encounter Details Date Type Department Care Team (Late st Contact Info) Description 07/21/2024 Telephone Family Practice [address] [place] [address] [place] [address] Chelle Vasquez DO [address] [place] [address] Test Results Allergies Active Allergy Reactions Criticality Noted Date Comments Allopurinol Rash 04/17/2020 Pollen 04/22/2012 Seasonal allergies Molds & Smuts 07/01/2022 documented as of this encounter (statuses as of 08/04/2024) Medications Medication Sig Dispensed Refills Start Date [...] by mouth in the morning. 90 Tablet 06/29/2024 Active Compressor NebulizerIndicati ons:Acute cough,Wheeze,Hodg kin lymphoma, unspecified Hodgkin lymphoma type, unspecified body region (HCC),Acute bronchospasm Inhale via nebulizer. Use with medication every 4 hours. 1 Each 1 07/06/2024 Active Albuterol Sulfate (2.5 MG/3ML) 0.083% Inhalation Nebulization Solution (Proventil)Indica tions:Acute cough,Wheeze,Hodg kin lymphoma, unspecified Hodgkin lymphoma type, unspecified body region (HCC),Acute bronchospasm Inhale 1 Vial via nebulizer every 4 hours as needed for Wheezing. 180 mL 07/06/2024 Active predniSONE 10 MG Oral Tablet (Deltasone)Indica tions:Acute cough,Wheeze Take 5 tablets by mouth for 2 days, 4 tabs for 2 days, 3 tabs for 2 days, 2 tabs for 2 days 1 tab for 2 days 30 Tablet 07/05/2024 07/26/20 24 Discontinued Hospital, Clinic, or Other Facility Administered Medication Ordered Dose Route Frequency Start Date End Date Status Albuterol Sulfate (Proventil) (2.5 MG/3ML) 0.083% inhalation solution 2.5 mgIndications:Hodgkin lymphoma, unspecified Hodgkin lymphoma type, unspecified body region (HCC) 2.5 mg NEBULIZER PRN 04/06/2024 Active documented as of this encounter (statuses as of 08/04/2024) Active Problems Problem Noted Date Diagnosed Date [...] prox RCA 80% stenosis with placement of 3.76r34ga Xience Skypoint WEST, post-dilated with 3.5mm NC Balloon reducing stenosis to 0% with JAMES 3 flow Essential (primary) hypertension 12/08/2023 Hyperlipidemia 12/08/2023 Atherosclerosis of [place] co ronary artery without angina pectoris 12/08/2023 [...] as of this encounter (statuses as of 08/04/2024) Resolved Problems Problem Noted Date Diagnosed Date [...] as of this encounter (statuses as of 08/04/2024) Immunizations Name Administration Dates Next Due COVID-19 [...] encounter Miscellaneous Notes * Telephone Encounter - Familia Cuellar OSA - 08/04/2024 8:20 AM EDT Patient scheduled and is aware * Telephone Encounter - Ijeoma Gilbert OSA - 08/03/2024 1:05 PM EDT Left message * Telephone Encounter - Uriel LeonardaGILBERTO Queen - 08/03/2024 12:49 PM EDT I am going to request to have him scheduled for next month to follow up in regards to his worseninganemia. I am wondering if some of his symptoms and anemia may be related to him coming off of the testosterone if this was recent? Though it also looks like he is overdue for a colonoscopy as well? Scheduling: please reach out to patient to schedule early follow up for next month. Lab work prior - CBCd, iron screen, ferritin, vitamin b12 and folic acid * Telephone Encounter - Chelle Vasquez DO - 08/02/2024 7:05 AM EDT Noted. Leonarda, please see recent PET and labs given pt's concern for Hodgkin's return. Does May f/u remain appropriate? * Telephone Encounter - Valerie Vargas LPN - 07/22/2024 1:17 PM EDT Aware, states he did have surgery to his neck to remove lymph nodes in 1984. Thank you * Telephone Encounter - Chelle Vasquez DO - 07/21/2024 3:28 PM EDT Please let pt know: His PET scan showed fluid in his right lung. I know he had seen pulmonary previously and they were not able to get any fluid out. Does not appear it has changed in size. Did he have any previous surgery to his left neck to remove nodes? Otherwise, the scan was ok. Some gallstones. documented in this encounter Plan of Treatment Upcoming Encounters Date Type Department Care Team (Latest Contact Info) Description 08/12/2024 10:00 AM EDT Laboratory Laboratory, [facility] [phone] [facility] 132 [facility] [place] [address] 08/13/2024 2:00 PM EDT Office Visit Dermatology [facility] 200 [facility] [place] [address] Juanito Browning MD 16 [place] [address] 08/19/2024 8:30 AM EST Office Visit Hematology/Oncolog y [facility] [address] [place] [phone] Leonarda Trevino CRNP [address] [place] [address] 09/14/2024 10:20 AM EST Office Visit Pulmonary Medicine, [facility] 132 [facility] [place] [address] Marino Rodriguez MD [address] [place] [facility] [place] [address] 09/17/2024 2:20 PM EST Office Visit Family Practice [address] [place] [address] 293 [place] [address] Chelle Vasquez DO 293 [place] [address] 11/03/2024 8:00 AM EST Hospital Encounter ENDO [facility], Endoscopy Room [facility] 132 [facility] [place] [phone] Dallas Askew MD 132 [place] [address] 11/03/2024 8:00 AM EST - 11/03/2024 9:00 AM EST Surgery ENDO [facility], Endoscopy Room [facility] [address] [place] [phone] Dallas Askew MD [address] [place] [address] COLONOSCOPY FLEXIBLE PROXIMAL DIAGNOSTIC 11/18/2024 11:00 AM EST Office Visit Dermatology [facility] 200 [facility] [place] [address] Gladys Srivastava MD 200 [facility] [place] [address] 02/17/2025 11:30 AM EDT Office Visit Cardiology, [facility] [address] [place] [address] Uriel Warren DO [address] [place] [address] 02/17/2025 2:30 PM EDT Office Visit Hematology/Oncolog y [facility] [address] [place], [place] [address] Leonarda Trevino CRNP [address] [place] [address] Scheduled Orders Name Type Priority Associated Diagnoses Orde r Schedule CBC WITH WBC DIFFERENTIAL Lab STAT Anemia, unspecified type History of colonic polyps Expected: 08/16/2024 (Approximate), Expires: 08/01/2025 IRON SCREEN, INCLUDING TIBC Lab STAT Anemia, unspecified type History of colonic polyps Expected: 08/16/2024 (Approximate), Expires: 08/01/2025 FERRITIN Lab STAT Anemia, unspecified type History of colonic polyps Expected: 08/16/2024 (Approximate), Expires: 08/01/2025 VITAMIN B12 Lab STAT Anemia, unspecified type History of colonic polyps Expected: 08/16/2024 (Approximate), Expires: 08/01/2025 FOLIC ACID Lab STAT Anemia, unspecified type History of colonic polyps Expected: 08/16/2024 (Approximate), Expires: 08/01/2025 Scheduled Procedures Name Priority Associated Diagnoses Date/Ti [...] this encounter Medical Devices Implanted Type Area Slip Cover Estimator Device Identifier Shelf Expiration Date Model / Serial / Lot Marker Coronary Amgm-Sd - [id number] Implanted:Qty: 2 on 11/10/2015 by Jorge Colón MD at [place] [facility] [place] N/A: Heart inDineroSEE BIOMEDICAL [facility] / / [id number] Valve Heart Aortic Epic 25mm - [id number] - [id number] Implanted:Qty: 1 on 11/10/2015 by Jorge Colón MD at OR [facility] N/A: Heart ST LENNY : CARDIOVASCULAR 03/05/2019 [id number] 5-00 / [id number] / Sut Steel 6 M654g - [id number] Implanted:Qty: 4 on 11/10/2015 by Jorge Colón MD at OR [facility] N/A: Chest JNJ : [employer] M654G / / Lens Intraoc 16.5 - [id number] - [id number] Implanted:Qty: 1 on 08/22/2020 by Pola Lozano MD at OR [facility] Right: Eye BAUSCH & LOMB 02/09/2025 [id number] 5 / [id number] / [id number] Lens Intraoc 16.0 - [id number] - [id number] Implanted:Qty: 1 on 09/05/2020 by Poal Lozano MD at OR [facility] Left: Eye BAUSCH & LOMB 02/09/2025 [id number] 0 / [id number] / [id number] Clip Quick 2.8mm 230cm - [id number] Implanted:Qty: 1 on 04/23/2021 by Dallas Askew MD at ENDOSCOPY [facility] Colon [employer] 12/11/2023 HX-202UR .A / / 13K Cath Thermodilution 6fr - [id number] Implanted:Qty: 1 on 04/09/2024 by Jose Cruz Hill DO at CARDIAC LABS [facility] [employer] DYLAN [id number] 10/27/2025 [id number] / / [id number] Stent Xience Skypoint 3.25x15 - [id number] Implanted:Qty: 1 on 04/09/2024 by Jose Cruz Hill DO at CARDIAC LABS [facility] [employer]LL[employer] LABS : VASCULAR DEVICES 01/04/2027 [id number] / / [id number] documented as of this encounter Visit Diagnoses Diagnosis Anemia, unspecified type- Primary History of colonic polyps Personal history of [...] Power of Attor baldev? No Care Teams Pepper Cutter Relationship Specialty Start Date End Date Chelle Vasquez DO [address] [place] [address] PCP - General Family Medicine 03/30/24 documented as of this encounter
--- OUTSIDE RECORDS SUMMARY | 2024-12-08 08:20 | External Medical Summary | Summary of Care ---
Author Name Unknown Organization [facility] Address [address] [facility] [place] [address] Phone [phone] Care Team Providers Care Copier Repair Technician Name Role Phone Chelle Vasquez DO Primary Care Provider [phone] Reason for Visit * Reason Onset Date Comments Test Results 07/21/2024 Encounter Details Date Type Department Care Team (Late st Contact Info) Description 07/21/2024 Telephone Family Practice [address], [place] 293 [place] [address] Chelle Vasquez DO 293 [place] [address] Test Results Allergies Active Allergy Reactions Criticality Noted Date Comments Allopurinol Rash 04/17/2020 Pollen 04/22/2012 Seasonal allergies Molds & Smuts 07/01/2022 documented as of this encounter (statuses as of 08/03/2024) Medications Medication Sig Dispensed Refills Start Date [...] as of this encounter (statuses as of 08/03/2024) Active Problems Problem Noted Date Diagnosed Date [...] prox RCA 80% stenosis with placement of 3.48i59ca Xience Skypoint WEST, post-dilated with 3.5mm NC Balloon reducing stenosis to 0% with JAMES 3 flow Essential (primary) hypertension 12/08/2023 Hyperlipidemia 12/08/2023 Atherosclerosis of [place] co ronary artery without angina pectoris 12/08/2023 [...] as of this encounter (statuses as of 08/03/2024) Resolved Problems Problem Noted Date Diagnosed Date [...] as of this encounter (statuses as of 08/03/2024) Immunizations Name Administration Dates Next Due COVID-19 [...] encounter Miscellaneous Notes * Telephone Encounter - Ijeoma Gilbert OSA - 08/03/2024 1:05 PM EDT Left message * Telephone Encounter - Leonarda Trevino CRNP - 08/03/2024 12:49 PM EDT I am [...] 08/13/2024 2:00 PM EDT Office Visit Dermatology [facility] [facility] [place] [address] Juanito Browning MD [address] [place] [address] [place] [address] 09/14/2024 10:20 AM EST Office Visit [facility] [place] [address] Marino Rodriguez MD [address] [place] [address] 09/17/2024 2:20 PM EST Office Visit Family Practice [address] [place] [address] 293 [facility] [place] [address] Chelle Vasquez, DO 293 [place] [address] 11/03/2024 8:00 AM EST Hospital Encounter ENDO [facility], Endoscopy Room [facility] 132 [facility] [place] [phone] Dallas Askew MD 132 [facility] [place] [address] 11/03/2024 8:00 AM EST - 11/03/2024 9:00 AM EST Surgery ENDO [facility], Endoscopy Room [facility] 132 [facility] [place] [phone] Dallas Askew MD 132 [facility] [place] [address] COLONOSCOPY FLEXIBLE PROXIMAL DIAGNOSTIC 11/18/2024 11:00 AM EST Office Visit Dermatology [facility] 200 [facility] [place] [address] Gladys Srivastava MD 200 [facility] [place] [address] 02/17/2025 11:30 AM EDT Office [facility] [place] [address] Uriel Warren O, DO [facility] [place] [address] 02/17/2025 2:30 PM EDT Office Visit Hematology/Oncology [facility] [place] 200 [facility] [place] [address] Leonarda Trevino CRNP 400 [facility] [place] [address] Scheduled Orders Name Type Priority Associated Diagnoses [...] this encounter Medical Devices Implanted Type Area Air Technician Device Identifier Shelf Expiration Date Model / Serial / Lot Marker Coronary [facility] - [id number] Implanted:Qty: 2 on 11/10/2015 by Jorge Colón MD at OR [facility] N/A: Heart [employer] [facility] / / [id number] Valve Heart Aortic Epic 25mm - [id number] - [id number] Implanted:Qty: 1 on 11/10/2015 by Jorge Colón MD at OR [facility] N/A: Heart ST LENNY : CARDIOVASCULAR 03/05/2019 [id number] 5-00 / [id number] / Sut Steel 6 M654g - [id number] Implanted:Qty: 4 on 11/10/2015 by Jorge Colón MD at OR [facility] N/A: Chest JNJ : [employer] M654G / / Lens Intraoc 16.5 - [id number] - [id number] Implanted:Qty: 1 on 08/22/2020 by Pola Lozano MD at OR [facility] Right: Eye [employer] LOMB 02/09/2025 [id number] 5 / [id number] / [id number] Lens Intraoc 16.0 - [id number] - [id number] Implanted:Qty: 1 on 09/05/2020 by Pola Lozano MD at OR [facility] Left: Eye BAUSCH [employer] LOMB 02/09/2025 [id number] 0 / [id number] / [id number] Clip Quick 2.8mm 230cm - [id number] Implanted:Qty: 1 on 04/23/2021 by Dallas Askew MD at ENDOSCOPY [facility] Colon [employer] 12/11/2023 HX-202UR .A / / 13K Cath Thermodilution 6fr - [id number] Implanted:Qty: 1 on 04/09/2024 by Jose Cruz Hill DO at CARDIAC LABS [facility] [employer] D[employer]AN [id number] 10/27/2025 [id number] / / [id number] Stent Xience Skypoint 3.25x15 - [id number] Implanted:Qty: 1 on 04/09/2024 by Jose Cruz Hill DO at CARDIAC LABS [facility] [employer] LABS : VASCULAR DEVICES 01/04/2027 [id number] / / [id number] documented as of this encounter Visit Diagnoses [...] Power of Attor baldev? No Care Teams Copier Repair Technician Relationship Specialty Start Date End Date Chelle Vasquez DO 293 [place] [address] PCP - General Family Medicine 03/30/24 documented as of this encounter
--- OUTSIDE RECORDS SUMMARY | 2024-12-08 08:20 | External Medical Summary | Summary of Care ---
Author Name Unknown Organization [facility] Address [address] [facility] [place] [address] Phone [phone] Care Team Providers Care Hydrodynamics Professor Name Role Phone Chelle Vasquez DO Primary Care Provider Reason for Visit * Reason Comments Nurse Documentation Nurse visit for feel ing that he is getting something in his throat. Encounter Details Date Type Department Care Team (Late st Contact Info) Description 08/06/2024 10:30 AM EDT Nurse Only Family Practice 65 [facility] 293 [place] [address] College, Nurse [facility] Prac [address] [address] Nurse Documentation (Nurse visit for feeli... Allergies [...] Respimat 2.5 MCG/ACT Inhalation Aerosol Solution (Tiotropium [place] Monohydrate) Inhale 2 Puffs by mouth in [...] prox RCA 80% stenosis with placement of 3.26o01lw Xience Skypoint WEST, post-dilated with 3.5mm NC Balloon reducing stenosis to 0% with JAMES 3 flow Essential (primary) hypertension 12/08/2023 Hyperlipidemia 12/08/2023 Atherosclerosis of [place] co ronary artery without angina pectoris [...] if ordered, would like it sent [facility]. documented in this encounter Plan of Treatment Upcoming Encounters Date Type Department Care Team (Latest Contact Info) Description 08/12/2024 10:00 AM EDT Laboratory Laboratory, [facility] [phone] [facility] [place] [address] 08/13/2024 2:00 PM EDT Office Visit Dermatology [facility] 200 [facility] [place] [address] Juanito Browning MD 16 [place] [address] 08/19/2024 8:30 AM EST Office Visit Hematology/Oncolog y [facility] 200 [facility] [place] [phone] Leonarda Trevino CRNP [address] [place] [address] [place] [address] 09/14/2024 10:20 AM EST Office Visit Pulmonary Medicine, [facility] 132 [facility] [place] [address] Marino Rodriguez MD [address] [place] [address] 09/17/2024 2:20 PM EST Office Visit Family Practice [address] [place] [address] 293 [place] [address] Chelle Vasquez DO 293 [place] [address] 11/03/2024 8:00 AM EST Hospital Encounter ENDO [facility], Endoscopy Room [facility] [address] [place] [phone] Dallas Askew MD [address] [place] [address] 11/03/2024 8:00 AM EST - 11/03/2024 9:00 AM EST Surgery ENDO [facility], Endoscopy Room [facility] [address] [place] [phone] Dallas Askew MD [address] [place] [address] COLONOSCOPY FLEXIBLE PROXIMAL DIAGNOSTIC 11/18/2024 11:00 AM EST Office Visit Dermatology [facility] 200 [facility] [place] [address] Gladys Srivastava MD 200 [facility] [place] [address] 02/17/2025 11:30 AM EDT Office Visit Cardiology, [facility] [address] [place] [address] Uriel Warren DO [address] [place] [address] 02/17/2025 2:30 PM EDT Office Visit Hematology/Oncolog y [facility] 200 [facility] [place] [address] Leonarda Trevino CRNP 400 [facility] [place] [id number] Scheduled Procedures Name Priority Associated Diagnoses Date/Ti [...] this encounter Medical Devices Implanted Type Area Roller Skate Repairer Device Identifier Shelf Expiration Date Model / Serial / Lot Marker Coronary [facility] - [id number] Implanted:Qty: 2 on 11/10/2015 by Jorge Colón MD at [place] [facility] N/A: Heart [employer] AM-SD / / [id number] Valve Heart Aortic Epic 25mm - [id number] - [id number] Implanted:Qty: 1 on 11/10/2015 by Jorge Colón MD at OR [facility] N/A: Heart ST LENNY : CARDIOVASCULAR 03/05/2019 [id number] 5-00 / [id number] 1 / Sut Steel 6 M654g - [id number] Implanted:Qty: 4 on 11/10/2015 by Jorge Colón MD at OR [facility] N/A: Chest JNJ : [employer] M654G / / Lens Intraoc 16.5 - [id number] - [id number] Implanted:Qty: 1 on 08/22/2020 by Pola Lozano MD at OR [facility] Right: Eye BAUSCH [employer] LOMB 02/09/2025 [id number] 5 / [id number] 39 / [id number] Lens Intraoc 16.0 - [id number] - [id number] Implanted:Qty: 1 on 09/05/2020 by Pola Lozano MD at OR [facility] Left: Eye BAUSCH [employer] LOMB 02/09/2025 [id number] 0 / [id number] / [id number] Clip Quick 2.8mm 230cm - [id number] Implanted:Qty: 1 on 04/23/2021 by Dallas Askew MD at ENDOSCOPY [facility] Colon [employer] 12/11/2023 HX-202UR .A / / 13K Cath Thermodilution 6fr - [id number] Implanted:Qty: 1 on 04/09/2024 by Jose Cruz Hill DO at CARDIAC LABS [facility] [employer] [id number] 10/27/2025 [id number] / / [id number] Stent Xience Skypoint 3.25x15 - [id number] Implanted:Qty: 1 on 04/09/2024 by Jose Cruz Hill DO at CARDIAC LABS [facility] [employer]LL[employer] LABS : VASCULAR DEVICES 01/04/2027 [id number] / / [id number] documented as of this encounter Visit Diagnoses [...] Power of Attor baldev? No Care Teams Hydrodynamics Professor Relationship Specialty Start Date End Date Chelle Vasquez DO 293 [place] [address] PCP - General Family Medicine 03/30/24 documented as of this encounter
--- OUTSIDE RECORDS SUMMARY | 2024-12-08 08:20 | External Medical Summary | Summary of Care ---
Author Name Unknown Organization [facility] Address [address] [place] [address] Phone [phone] Care Team Providers Care Non Morse Intercept Technician Name Role Phone Chelle Vasquez DO Primary Care Provider [phone] Reason for Visit * Reason Onset Date Comments Appointment 08/06/2024 Yeast infection Encounter Details Date Type Department Care Team (Late st Contact Info) Description 08/06/2024 Telephone Family Practice 65 [facility] [place] 293 [place] [address] Chelle Vasquez DO 293 [place] [address] Appointment (Yeast infection) Allergies Active Allergy Reactions [...] Respimat 2.5 MCG/ACT Inhalation Aerosol Solution (Tiotropium [place] Monohydrate) Inhale 2 Puffs by mouth [...] prox RCA 80% stenosis with placement of 3.64t44ux Xience Skypoint WEST, post-dilated with 3.5mm NC Balloon reducing stenosis to 0% with JAMES 3 flow Essential (primary) hypertension 12/08/2023 Hyperlipidemia 12/08/2023 Atherosclerosis of [place] co ronary artery without angina pectoris 12/08/2023 [...] Telephone Encounter - Rea Benitez LPN - 08/06/2024 11:18 AM EDT Pt in for NV. NV encounter forwarded to Dr. Aden. * Telephone Encounter - Valerie King RN [...] Description 08/12/2024 10:00 AM EDT Laboratory Laboratory, [facility] [phone] [facility] 132 [facility] [place] [address] 08/13/2024 2:00 PM EDT Office Visit Dermatology [facility] 200 [facility] [place] [address] Juanito Browning MD [address] [place] [address] 08/19/2024 8:30 AM EST Office Visit Hematology/Oncolog y [facility] 200 [facility] [phone] Leonarda Trevino CRNP 400 [place] [address] 09/14/2024 10:20 AM EST Office Visit Pulmonary Medicine, [facility] 132 [facility] [place] [address] Marino Rodriguez MD [address] [facility] [place] [address] 09/17/2024 2:20 PM EST Office Visit Family Practice [address] [place] [address] 293 [facility] [address] Chelle Vasquez DO [address] [place], [place] [address] 11/03/2024 8:00 AM EST Hospital Encounter ENDO [facility], Endoscopy Room [facility] [address] [place], [place] [phone] Dallas Askew MD [address] [place] [address] 11/03/2024 8:00 AM EST - 11/03/2024 9:00 AM EST Surgery ENDO [facility], Endoscopy Room [facility] [address] [place] [phone] Dallas Askew MD [address] [place] [address] COLONOSCOPY FLEXIBLE PROXIMAL DIAGNOSTIC 11/18/2024 11:00 AM EST Office Visit Dermatology [facility] 200 [facility] [place] [address] Gladys Srivastava MD 200 [facility] [place] [address] 02/17/2025 11:30 AM EDT Office Visit Cardiology, [facility] 132 [facility] [place] [address] Uriel Warren DO 132 [facility] [place] [address] 02/17/2025 2:30 PM EDT Office Visit Hematology/Oncolog y [facility] 200 [facility] [place] [phone] Leonarda Trevino CRNP [address] [place] [address] [place] [address] Scheduled Procedures Name Priority Associated Diagnoses Date/Ti [...] this encounter Medical Devices Implanted Type Area Senior Interior Designer Device Identifier Shelf Expiration Date Model / Serial / Lot Marker Coronary [facility] - [id number] Implanted:Qty: 2 on 11/10/2015 by Jorge Colón MD at OR [facility] N/A: Heart [employer] AM-SD / / [id number] Valve Heart Aortic Epic 25mm - [id number] - [id number] Implanted:Qty: 1 on 11/10/2015 by Jorge Colón MD at OR [facility] N/A: Heart ST LENNY : CARDIOVASCULAR 03/05/2019 [id number] 5-00 / [id number] / Sut Steel 6 M654g - [id number] Implanted:Qty: 4 on 11/10/2015 by Jorge Colón MD at OR [facility] N/A: Chest JNJ : [employer] M654G / / Lens Intraoc 16.5 - [id number] - [id number] Implanted:Qty: 1 on 08/22/2020 by Pola Lozano MD at OR [facility] Right: Eye [employer]CH [employer] LOMB 02/09/2025 [id number] 5 / [id number] 39 / [id number] Lens Intraoc 16.0 - [id number] - [id number] Implanted:Qty: 1 on 09/05/2020 by Pola Lozano MD at OR [facility] Left: Eye BAUSCH [employer] LOMB 02/09/2025 [id number] 0 / [id number] 35 / [id number] Clip Quick 2.8mm 230cm - [id number] Implanted:Qty: 1 on 04/23/2021 by Dallas Askew MD at ENDOSCOPY [facility] Colon [employer] 12/11/2023 HX-202UR .A / / 13K Cath Thermodilution 6fr - [id number] Implanted:Qty: 1 on 04/09/2024 by Jose Cruz Hill DO at CARDIAC LABS [facility] [employer] [id number] 10/27/2025 [id number] / / [id number] Stent Xience Skypoint 3.25x15 - [id number] Implanted:Qty: 1 on 04/09/2024 by Jose Cruz Hill DO at CARDIAC LABS [facility] [employer] LABS : VASCULAR DEVICES 01/04/2027 [id number] / / [id number] documented as of this encounter Advance Directives [...] Power of Attor baldev? No Care Teams Non Morse Intercept Technician Relationship Specialty Start Date End Date Chelle Vasquez DO [address] [place] [address] PCP - General Family Medicine 03/30/24 documented as of this encounter
--- OUTSIDE RECORDS SUMMARY | 2024-12-08 08:20 | External Medical Summary ---
Author Name Unknown Address Unknown Organization K01:[facility] - [address] [place] [address] Laboratory Report Ordering Provider Test Date Status AARON WALKER 08/12/2024 10:07:46 Final Observation Date Value Abnormality Reference (Units ) Status Ferritin 08/12/2024 10:07:46 235 30-400 (ng /mL) Final Performing Location [facility] [address] [place] [address]
--- OUTSIDE RECORDS SUMMARY | 2024-12-08 08:21 | External Medical Summary | Summary of Care ---
Author Name Unknown Organization [facility] Address [address] [place] [address] Phone [phone] Care Team Providers Care Glass Silverer Name Role Phone Chelle Vasquez DO Primary Care Provider Reason for Visit * Reason Onset Date Comments Abnormal Genetic Testing 07/08/2024 pathoge antonio MITF variant Encounter Details Date Type Department Care Team (Late st Contact Info) Description 07/08/2024 Telephone Genetics [facility]c, [facility] [address] [facility] [place] [address] Elana Guallpa, [place] [address] [address] Abnormal Genetic Testing (pathogenic MITF ... Allergies Active Allergy Reactions Criticality Noted Date Comments Allopurinol Rash 04/17/2020 Pollen 04/22/2012 Seasonal allergies Molds & Smuts 07/01/2022 documented as of this encounter (statuses as of 07/08/2024) Medications Medication Sig Dispensed Refills Start Date [...] April 10, 2024. 90 Tablet 04/10/2024 Active Atorvastatin Calcium 80 MG Oral Tablet (Lipitor) Take 1 Tablet by mouth at bedtime. 90 Tablet 04/09/2024 Active Torsemide 20 MG Oral Tablet (Demadex) Take 1 Tablet by mouth in the morning. 90 Tablet 04/09/2024 Active Clopidogrel Bisulfate 75 MG Oral Tablet (pLAVix) Take 1 Tablet by mouth in the morning. Do not start before April 10, 2024. 90 Tablet 04/10/2024 Active Nitroglycerin 0.4 MG Sublingual Tablet Sublingual (Nitrostat) Place 1 Tablet under the tongue every 5 minutes as needed for Pain, Chest. up to 3 doses in 15 minutes 25 Tablet 04/09/2024 Active Amoxicillin 500 MG Oral Capsule (Amoxil) Take 4 Capsules by mouth daily as needed (dental appointments). Active Omeprazole 20 MG Oral Capsule Delayed Release (PriLOSEC) Take 1 Capsule by mouth at bedtime. 90 Capsule 3 05/31/2024 Active Ezetimibe 10 MG Oral Tablet (Zetia) Take 1 Tablet by mouth in the morning. 100 Tablet 06/08/2024 Active Ventolin HFA 108 (90 Base) MCG/ACT Inhalation Aerosol Solution Inhale 2 Puffs by mouth as needed for Cough or Wheezing. 18 g 3 06/29/2024 Active Lisinopril 10 MG Oral Tablet (Prinivil) Take 0.5 Tablets by mouth in the morning. 90 Tablet 06/29/2024 Active predniSONE 10 MG Oral Tablet (Deltasone)Indicati ons:Acute cough,Wheeze Take 5 tablets by mouth for 2 days, 4 tabs for 2 days, 3 tabs for 2 days, 2 tabs for 2 days 1 tab for 2 days 30 Tablet 07/05/2024 Active Compressor NebulizerIndication s:Acute cough,Wheeze,Hodgki n lymphoma, [...] for Wheezing. 180 mL 5 07/06/2024 Active Hospital, Clinic, or Other Facility Administered Medication Ordered Dose Route Frequency Start Date End Date Status Albuterol Sulfate (Proventil) (2.5 MG/3ML) 0.083% inhalation solution 2.5 mgIndications:Hodgkin lymphoma, unspecified Hodgkin lymphoma type, unspecified body region (HCC) 2.5 mg NEBULIZER PRN 04/06/2024 Active documented as of this encounter (statuses as of 07/08/2024) Active Problems Problem Noted Date Diagnosed Date [...] prox RCA 80% stenosis with placement of 3.23l78aa Xience Skypoint WEST, post-dilated with 3.5mm NC Balloon reducing stenosis to 0% with JAMES 3 flow Essential (primary) hypertension 12/08/2023 Hyperlipidemia 12/08/[address] [place] ronary artery without angina pectoris 12/08/2023 History of therapeutic radiation 09/20/2022 MGUS (monoclonal gammopathy of unknown significa nce) 05/17/2020 History of nonmelanoma skin cancer 11/25/2017 Overview: Hx of BCC mid back - 2017 [...] as of this encounter (statuses as of 07/08/2024) Resolved Problems Problem Noted Date Diagnosed Date [...] as of this encounter (statuses as of 07/08/2024) Immunizations Name Administration Dates Next Due COVID-19 [...] Adjuvant, PF,0.5 Ml (Arexvy) 08/07/2023 Seasonal Influenza Virus Vac cine, Unspecified Formulation 07/26/2022,08/02/2021,10/20/2018,10/12,09/25/2016,08/23/2015,10/23/2013 Seasonal Influenza, High Dos e, Trivalent, PF, IM (Fluzone HD) 06/17/2024 Seasonal Influenza, Quadriva lent Hd, 65+ Yrs 07/25/2023,07/28/2020 Seasonal Influenza, Trivalen t, (IIV3), with Preserv, (Fluzone) 10/23/2013 TDAP (age 10 and older)(Boostrix) 10/02/2023,09/2012 Zoster [...] No 09/18/2023 Does the household have a [facility] source of income? (Household - [...] encounter Miscellaneous Notes * Telephone Encounter - Elaan Guallpa, MS - 07/08/2024 3:02 PM EDT I spoke with Michael Hughes via phone today to discuss genetic test results. We reviewed the results in detail and Michael verbalized understanding. All patient questions were answered. Return to Cancer Genetics: 1-2 years The patient provided verbal consent to share their genetic test result and pedigree with close relatives, should it be requested to aid in their care. We discussed that this consent will link their medical record to their relative's family history, for the purpose of their relative's genetics provider to obtain relevant family history information and records related to genetic testing and geneticcounseling visits. No records from the patient's chart will be directly available in their relative's chart. Elana Guallpa MS, [facility] Licensed, Certified Genetic Counselor Cancer Genetics Risk Assessment Clinic at [facility] 07/08/2024 * Telephone Encounter - Elana Guallpa MS - 07/08/2024 10:17 AM EDT I contacted Michael Hughes today to disclose genetic test results. Left voicemail with direct contact information. 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 Test Ordered: Multi-Cancer Panel and Expanded Colorectal Cancer Panel at [facility] (79 genes) Genes Included: AIP, ALK, APC, AUNDREA, AXIN2, BAP1, BARD1, BLM, BMPR1A, BRCA1, BRCA2, BRIP1, CDC73, CDH1, CDK4, CDKN1B, CDKN2A (p14ARF), CDKN2A (a15RJS2a), CHEK2, CTNNA1, DICER1, EGFR, EPCAM, FH, FLCN, GREM1, HOXB13, KIT, LTZR1, MAX, MBD4, MEN1, MET, MITF, MLH1, MSH2, MSH3, MSH6, MUTYH, NF1, NF2, NTHL1, PALB2, PDGFRA, PMS2, POLD1, POLE, POT1, POAEC2R, PTCH1, PTEN, RAD51C, RAD51D, RB1, RET, SDHA, SDHAF2, SDHB, SDHC, SDHD, SMAD4, SMARCA4, SMARCB1, SMARCE1, STK11, SUFU, JCCZ646, TP53, TSC1, TSC2, VHL+ BUB1, BUB1B, CEP57, FOCAD, GALNT12, MLH3, RNF43, RPS20, TRIP13 Variant of uncertain significance (VUS) identified: PALB2, c.1042C>A (p.Ohn407Vft); ClinVarID: [id number] Conflicting ClinVar classification: VUS x7, LB/B x2 VUS results do not impact medical management at this time. Testing relatives for VUS results is notrecommended. Summary: A pathogenic variant was identified associated with increased risk for Melanoma. MITF Cancer Risks: General Population Risk MITF Risk Melanoma 2.1% 4-10% Renal cell carcinoma <2% May be increased Management: Melanoma Risk: Comprehensive skin examination by a student development dean. Michael follows regularly with Dermatology due to his personal history of multiple non-melanoma skin cancers. Continue Derm follow-up as recommended. Per Barbara et al (PMID: [id number]) Monitoring with longitudinal photography and digital dermoscopyis helpful. A reduced threshold for biopsies of a suspicious lesion is reasonable in these patients. Sun protection, such as wearing sun screen and wide brimmed hats, can minimize the risk of melanoma. Avoiding exposure to tanning beds is important to decrease melanoma risk. At this time, this variant is not associated with Michael's personal history of cancer and colon polyps and is an incidental finding. No variants were identified in genes associated with hereditary polyposis; Michael should continue colonoscopy follow-up as recommended based on colonic adenomatous polyposis of unknown etiology (CPUE) Risk to Relatives: Michael should be encouraged to discuss this result with family members; close relatives have up to a50% chance of carrying this variant and having the associated increased cancer risk. The genetic testing laboratory has a policy of offering genetic testing to family members at no charge for 150 days after Gustavones report issue date (by 12/04/2024). Elana Guallpa MS, [facility] Licensed, Certified Genetic Counselor [facility] 07/08/2024 documented in this encounter Plan of Treatment Upcoming Encounters Date Type Department Care Team (Latest Contact Info) Description 07/19/2024 1:45 PM EDT Imaging Radiology [facility] [address] [facility] [place] [address] 07/22/2024 10:00 AM EDT Office Visit Cardiology, [facility] [address] [facility] [place] [address] Uriel Warren, DO 132 [facility] [place] [address] 08/13/2024 2:00 PM EDT Office Visit Dermatology [facility] [address] [place] [address] Juanito Browning MD 16 [place] [address] 09/17/2024 2:20 PM EST Office Visit Family Practice [address] [place] [address] 293 [place] [address] Chelle Vasquez, DO 293 [facility] [place] [address] 11/03/2024 8:00 AM EST Hospital Encounter ENDO [facility], Endoscopy Room [facility] [address] [facility] [place] [phone] Dallas Askew MD 132 [facility] [place] [address] 11/03/2024 8:00 AM EST - 11/03/2024 9:00 AM EST Surgery ENDO [facility], Endoscopy Room [facility] [address] [facility] [place] [phone] Dallas Askew MD 132 [facility] [place] [address] COLONOSCOPY FLEXIBLE PROXIMAL DIAGNOSTIC 11/18/2024 11:00 AM EST Office Visit Dermatology [facility] [address] [place] [address] Gladys Srivastava MD 200 [facility] [place] [address] 02/17/2025 2:30 PM EDT Office Visit Hematology/Oncology [facility] [place] [address] [facility] [place] [address] Leonarda Trevino CRNP 400 [facility] [place] [address] Scheduled Procedures Name Priority Associated Diagnoses Date/Ti [...] this encounter Medical Devices Implanted Type Area Healthcare Management Consultant Device Identifier Shelf Expiration Date Model / Serial / Lot Marker Coronary [facility] - [id number] Implanted:Qty: 2 on 11/10/2015 by Jorge Colón MD at OR [facility] N/A: Heart [employer] [facility] / / [id number] Valve Heart Aortic Epic 25mm - [id number] - [id number] Implanted:Qty: 1 on 11/10/2015 by Jorge Colón MD at OR [facility] N/A: Heart [facility] : CARDIOVASCULAR 03/05/2019 [id number] 5-00 / [id number] / Sut Steel 6 M654g - [id number] Implanted:Qty: 4 on 11/10/2015 by Jorge Colón MD at OR [facility] N/A: Chest JNJ : [employer] M654G / / Lens Intraoc 16.5 - [id number] - [id number] Implanted:Qty: 1 on 08/22/2020 by Pola Lozano MD at OR [facility] Right: Eye [employer] LOMB 02/09/2025 [id number] / [id number] / [id number] Lens Intraoc 16.0 - [id number] - [id number] Implanted:Qty: 1 on 09/05/2020 by Pola Lozano MD at OR [facility] Left: Eye [employer]USCH [employer] LOMB 02/09/2025 [id number] 0 / [id number] / [id number] Clip Quick 2.8mm 230cm - [id number] Implanted:Qty: 1 on 04/23/2021 by Dallsa Askew MD at ENDOSCOPY [facility] Colon [employer] 12/11/2023 HX-[id number] .A / / 13K Cath Thermodilution 6fr - [id number] Implanted:Qty: 1 on 04/09/2024 by Jose Cruz Hill DO at CARDIAC LABS [facility] [employer] D[employer]AN [id number] 10/27/2025 [id number] / / [id number] Stent Xience Skypoint 3.25x15 - [id number] Implanted:Qty: 1 on 04/09/2024 by Jose Cruz Hill DO at CARDIAC LABS [facility] [employer] [facility] : VASCULAR DEVICES 01/04/2027 [id number] / / [id number] documented as of this encounter Advance Directives [...] Power of Attor baldev? No Care Teams Glass Silverer Relationship Specialty Start Date End Date Chelle Vasquez DO [address] [place] [address] PCP - General Family Medicine 03/30/24 documented as of this encounter
--- OUTSIDE RECORDS SUMMARY | 2024-12-08 08:21 | External Medical Summary | Summary of Care ---
Author Name Unknown Organization [facility] Address [address] [place] [address] Phone [phone] Care Team Providers Care Movie Theater Manager Name Role Phone Chelle Vasquez DO Primary Care Provider [phone] Reason for Visit * Reason Onset Date Comments Abnormal Genetic Testing 07/08/2024 pathoge antonio MITF variant Encounter Details Date Type Department Care Team (Late st Contact Info) Description 07/08/2024 Telephone Genetics HemOnc, [facility] [address] [facility] [place] [address] Elana Guallpa, MS [address] [address] Abnormal Genetic Testing (pathogenic MITF ... Allergies [...] prox RCA 80% stenosis with placement of 3.80x21qq Xience Skypoint WEST, post-dilated with 3.5mm NC Balloon reducing stenosis to 0% with JAMES 3 flow Essential (primary) hypertension 12/08/2023 Hyperlipidemia 12/08/2023 Atherosclerosis of [place] ronary artery without angina pectoris 12/08/2023 [...] No 09/18/2023 Does the household have a [facility] source of income? (Household - for [...] 18 years and over) Not on file 3 Are you (or your family) april eless [...] encounter Miscellaneous Notes * Telephone Encounter - Elana Guallpa, - 07/08/2024 10:17 AM EDT I contacted Michael Hughes today to disclose genetic test results. Left voicemail with direct contact information. 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 Test Ordered: Multi-Cancer Panel and Expanded Colorectal Cancer Panel at [facility] (79 genes) Genes Included: AIP, ALK, APC, AUNDREA, AXIN2, BAP1, BARD1, BLM, BMPR1A, BRCA1, BRCA2, BRIP1, CDC73, CDH1, CDK4, CDKN1B, CDKN2A (p14ARF), CDKN2A (p00HXU9h), CHEK2, CTNNA1, DICER1, EGFR, EPCAM, FH, FLCN, GREM1, HOXB13, KIT, LTZR1, MAX, MBD4, MEN1, MET, MITF, MLH1, MSH2, MSH3, MSH6, MUTYH, NF1, NF2, NTHL1, PALB2, PDGFRA, PMS2, POLD1, POLE, POT1, DVQKL5Y, PTCH1, PTEN, RAD51C, RAD51D, RB1, RET, SDHA, SDHAF2, SDHB, SDHC, SDHD, SMAD4, SMARCA4, SMARCB1, SMARCE1, STK11, SUFU, KKAB046, TP53, TSC1, TSC2, VHL+ BUB1, BUB1B, CEP57, FOCAD, GALNT12, MLH3, RNF43, RPS20, TRIP13 Variant of uncertain significance (VUS) identified: PALB2, c.1042C>A (p.Dvq758Gei); ClinVarID: [id number] Conflicting ClinVar classification: VUS x7, LB/B x2 VUS results do not impact medical management at this time. Testing relatives for VUS results is notrecommended. Summary: A pathogenic variant was identified associated with increased risk for Melanoma. MITF Cancer Risks: General Population Risk MITF Risk Melanoma 2.1% 4-10% Renal cell carcinoma <2% May be increased Management: Melanoma Risk: Comprehensive skin examination by a personal lines advisor. Michael follows regularly with Dermatology due to his personal history of multiple non-melanoma skin cancers. Continue Derm follow-up as recommended. Per Barbara et al (PMID: [id number]) Monitoring with longitudinal photography and digital dermoscopyis [...] at no charge for 150 days after Mae report issue date (by 12/04/2024). Elana Guallpa MS, [facility] Licensed, Certified Genetic Counselor Cancer Genetics Risk Assessment Clinic, [facility] 07/08/2024 documented in this encounter Plan of Treatment Upcoming Encounters Date Type Department Care Team (Latest Contact Info) Description 07/19/2024 1:45 PM EDT Imaging Radiology [facility] 1st [facility] 132 [facility] [address] 07/22/2024 10:00 AM EDT Office Visit Cardiology, [facility] 132 [place] [address] Uriel Warren, DO 132 [facility] [place] [address] 08/13/2024 2:00 PM EDT Office Visit Dermatology [facility] 200 [facility] [address] Juanito Browning MD 16 [place] [address] 09/17/2024 2:20 PM EST Office Visit Family Practice [address] [place] [address] [address] [facility] [address] Chelle Vasquez DO 293 [place] [address] 11/03/2024 8:00 AM EST Hospital Encounter [facility]O [facility], Endoscopy Room [facility] 132 [facility] [place] [phone] Dallas Askew MD [address] [place] [address] 11/03/2024 8:00 AM EST - 11/03/2024 9:00 AM EST Surgery ENDO [facility], Endoscopy Room [facility] 132 [facility] [place] [phone] Dallas [facility]w [facility] 132 [facility] [address] COLONOSCOPY FLEXIBLE PROXIMAL DIAGNOSTIC 11/18/2024 11:00 AM EST Office Visit Dermatology [facility] [address] [facility] [place] [address] Gladys Srivastava MD 200 [facility] [place] [address] 02/17/2025 2:30 PM EDT Office Visit Hematology/Oncology [facility] [address] [facility] [place] [phone] Leonarda Trevino CRNP 400 [facility] [place] [address] Scheduled Procedures Name Priority Associated Diagnoses Date/Ti [...] this encounter Medical Devices Implanted Type Area Groundhand Device Identifier Shelf Expiration Date Model / Serial / Lot Marker Coronary [facility]-Sd - [id number] Implanted:Qty: 2 on 11/10/2015 by Jorge Colón MD at OR [facility] N/A: Heart [employer] AM-SD / / [id number] Valve Heart Aortic Epic 25mm - [id number] - [id number] Implanted:Qty: 1 on 11/10/2015 by Jorge Colón MD at OR [facility] N/A: Heart ST [facility] : CARDIOVASCULAR 03/05/2019 [id number] 5-00 / [id number] / Sut Steel 6 M654g - [id number] Implanted:Qty: 4 on 11/10/2015 by Jorge Colón MD at OR [facility] N/A: Chest JNJ : [employer] M654G / / Lens Intraoc 16.5 - [id number] - [id number] Implanted:Qty: 1 on 08/22/2020 by Pola Lozano MD at OR [facility] Right: Eye [employer]USCH & LOMB 02/09/2025 [id number] / [id number] / [id number] Lens Intraoc 16.0 - [id number] - [id number] Implanted:Qty: 1 on 09/05/2020 by Pola Lozano MD at OR [facility] Left: Eye BAUSCH & LOMB 02/09/2025 [id number] 0 / [id number] / [id number] Clip Quick 2.8mm 230cm - [id number] Implanted:Qty: 1 on 04/23/2021 by Dallas Askew MD at ENDOSCOPY [facility] Colon [employer] 12/11/2023 HX-202UR .A / / 13K Cath Thermodilution 6fr - [id number] Implanted:Qty: 1 on 04/09/2024 by Jose Cruz Hill DO at CARDIAC LABS [facility] [employer] [id number] 10/27/2025 [id number] / / [id number] Stent Xience Skypoint 3.25x15 - [id number] Implanted:Qty: 1 on 04/09/2024 by Jose Cruz Hill DO at CARD[facility] LABS [facility] [employer] : VASCULAR DEVICES 01/04/2027 [id number] / / [id number] documented as of this encounter Advance Directives [...] Power of Attor baldev? No Care Teams Movie Theater Manager Relationship Specialty Start Date End Date Chelle Vasquez DO 293 [place] [address] PCP - General Family Medicine 03/30/24 documented as of this encounter
--- OUTSIDE RECORDS SUMMARY | 2024-12-08 08:21 | External Medical Summary ---
Author Name Unknown Address Unknown Organization K01:[facility] - [address] [place] [address] Laboratory Report Ordering Provider Test Date Status SHARLENE CASTLE 07/26/2024 12:45:35 Final Observation Date Value Abnormality Reference (Units ) Status IgE 07/26/2024 12:45:35 274.0 Above high normal <= 214.0 (kU/L) Final Performing Location [facility] - [address] [place] [address]
--- OUTSIDE RECORDS SUMMARY | 2024-12-08 08:21 | External Medical Summary | Summary of Care ---
Author Name Unknown Organization [facility] Address [address] [facility] [place] [address] Phone [phone] Care Team Providers Care Supervisor Cytogenetic Laboratory Name Role Phone Pedro Chelle Lazo DO Primary Care Provider Reason for Visit * Reason Comments Outpatient Testing Encounter Details Date Type Department Care Team (Late st Contact Info) Description 07/26/2024 1:00 PM EDT Laboratory Laboratory, [facility] [address] [facility] [place] [address] [facility] [address] Moderate persistent asthma without complication Allergies Active Allergy Reactions Criticality Noted Date Comments Allopurinol Rash 04/17/2020 Pollen 04/22/2012 Seasonal allergies Molds & Smuts 07/01/2022 documented as of this encounter (statuses as of 07/26/2024) Medications Medication Sig Dispensed Refills Start Date [...] Respimat 2.5 MCG/ACT Inhalation Aerosol Solution (Tiotropium [place] Monohydrate) Inhale 2 Puffs by mouth in [...] as of this encounter (statuses as of 07/26/2024) Active Problems Problem Noted Date Diagnosed Date [...] prox RCA 80% stenosis with placement of 3.12w93iv Xience Skypoint WEST, post-dilated with 3.5mm NC Balloon reducing stenosis to 0% with JAMES 3 flow Essential (primary) hypertension 12/08/2023 Hyperlipidemia 12/08/2023 Atherosclerosis of [place] co ronary artery without angina pectoris 12/08/2023 [...] as of this encounter (statuses as of 07/26/2024) Resolved Problems Problem Noted Date Diagnosed Date [...] Hx of BCC right upper back - 2012 Hx of BCC left lateral neck - 2012 documented as of this encounter (statuses as of 07/26/2024) Immunizations Name Administration Dates Next Due COVID-19 [...] Visit Dermatology [facility] 200 [place] [address] Juanito Browning MD [address] [place] [address] 09/14/2024 10:20 AM EST Office Visit Pulmonary Medicine, [facility] 132 [facility] [place] [address] Marino Rodriguez MD [address] [place] [address] 09/17/2024 2:20 PM EST Office Visit Family Practice [address] [place] [address] 293 [place] [address] Chelle Vasquez DO [address] [place] [address] 11/03/2024 8:00 AM EST Hospital Encounter ENDO [facility], Endoscopy Room [facility] [address] [place] [phone] Dallas Askew MD 132 [facility] [place] [address] 11/03/2024 8:00 AM EST - 11/03/2024 9:00 AM EST Surgery ENDO [facility], Endoscopy Room [facility] [address] [place] [phone] Dallas Askew MD [address] [place] [address] COLONOSCOPY FLEXIBLE PROXIMAL DIAGNOSTIC 11/18/2024 11:00 AM EST Office Visit Dermatology [facility] [address] [place] [address] Gladys Srivastava MD [address] [place] [address] 02/17/2025 11:30 AM EDT Office Visit Cardiology, [facility] [address] [place] [address] Uriel Warren DO [address] [place] [address] 02/17/2025 2:30 PM EDT Office Visit Hematology/Oncology [facility] [address] [place] [phone] Leonarda Trevino CRNP [address] [place] [address] [place] [address] Pending Results Name Type Priority Associated Diagnoses Date /Time [facility] PROFILE Lab Routine Moderate persistent asthma without complication 07/26/2024 12:45 PM EDT CBC WITH WBC DIFFERENTIAL Lab Routine Moderate persistent asthma without complication 07/26/2024 12:45 PM EDT IGE Lab Routine Moderate persistent asthma without complication 07/26/2024 12:45 PM EDT CBC Lab Routine Moderate persistent asthma without complication 07/26/2024 12:45 PM EDT DIFFERENTIAL, AUTOMATED Lab Routine Moderate persistent asthma without complication 07/26/2024 12:45 PM EDT Scheduled Procedures Name Priority Associated Diagnoses [...] this encounter Medical Devices Implanted Type Area Customer Service Cashier Device Identifier Shelf Expiration Date Model / Serial / Lot Marker Coronary Am-Sd - [id number] Implanted:Qty: 2 on 11/10/2015 by Jorge Colón MD [place] [facility]/A: Heart [employer] AMGM-SD / / [id number] Valve Heart Aortic Epic 25mm - [id number] - [id number] Implanted:Qty: 1 on 11/10/2015 by Jorge Colón MD at [place] [facility] [place] N/A: Heart [facility] : CARDIOVASCULAR 03/05/2019 [id number] 5-00 / [id number] / Sut Steel 6 M654g - [id number] Implanted:Qty: 4 on 11/10/2015 by Jorge Colón MD at [place] [facility] [place] N/A: Chest JNJ : [employer] M654G / / Lens Intraoc 16.5 - [id number] - [id number] Implanted:Qty: 1 on 08/22/2020 by Pola Lozano MD at OR [facility] Right: Eye BAUSCH [employer] LOMB 02/09/2025 [id number] / [id number] / [id number] Lens Intraoc 16.0 - [id number] - [id number] Implanted:Qty: 1 on 09/05/2020 by Pola Lozano MD at OR [facility] Left: Eye BAUSCH [employer] LOMB 02/09/2025 [id number] 0 / [id number] / [id number] Clip Quick 2.8mm 230cm - [id number] Implanted:Qty: 1 on 04/23/2021 by Dallas Askew MD at ENDOSCOPY [facility] Colon [employer] 12/11/2023 [id number]-[id number] .A / / 13K Cath Thermodilution 6fr - [id number] Implanted:Qty: 1 on 04/09/2024 by Jose Cruz Hill DO at CARDIAC LABS [facility] [employer] DYLAN [id number] 10/27/2025 [id number] / / [id number] Stent Xience Skypoint 3.25x15 - [id number] Implanted:Qty: 1 on 04/09/2024 by Jose Cruz Hill DO at CARDIAC LABS [facility] CASTELLANOS LABS : VASCULAR DEVICES 01/04/2027 [id number] / / [id number] documented as of this encounter Visit Diagnoses Diagnosis Moderate persistent asthma without complication Unspecified asthma [...] Power of Attor baldev? No Care Teams Supervisor Cytogenetic Laboratory Relationship Specialty Start Date End Date Chelle Vasquez DO [address] [place] [address] PCP - General Family Medicine 03/30/24 documented as of this encounter
--- OUTSIDE RECORDS SUMMARY | 2024-12-08 08:21 | External Medical Summary ---
Author Name Unknown Address Unknown Organization K0G[facility] [place] [address] Laboratory Report Ordering Provider Test Date Status SHARLENE CASTLE 07/26/2024 12:45:35 Final Observation Date Value Abnormality Reference (Units ) Status WBC, Total 07/26/2024 12:45:35 8.08 4.00-10.8 0 (K/uL) Final RBC 07/26/2024 12:45:35 3.74 4.50-5.25 (M/uL) Final Hemoglobin 07/26/2024 12:45:35 11.8 Below low normal 14 .0-16.8 (g/dL) Final HCT 07/26/2024 12:45:35 36.4 Below low normal 40. 0-48.4 (%) Final MCV 07/26/2024 12:45:35 97.3 82.0-99.5 (fL) Final MCH 07/26/2024 12:45:35 31.6 27.0-34.0 (pg) Final MCHC 07/26/2024 12:45:35 32.4 32.0-36.0 (g/dL) Final RDW 07/26/2024 12:45:35 20.3 11.5-15.5 (%) Final Platelets 07/26/2024 12:45:35 305 140-400 (K /uL) Final MPV 07/26/2024 12:45:35 10.3 6.6-11.1 ( fL) Final Performing Location LABORATORY [place] [address] [place] [address]
--- OUTSIDE RECORDS SUMMARY | 2024-12-08 08:21 | External Medical Summary | Summary of Care ---
Author Name Unknown Organization [facility] Address [address] [facility] [place] [address] Phone [phone] Care Team Providers Care Auto Bench Mechanic Name Role Phone Chelle Vasquez DO Primary Care Provider Reason for Visit * Reason Comments Follow Up 3 month rtc Encounter Details Date Type Department Care Team (Latest Contact Info) Description 07/22/2024 10:00 AM EDT Office Visit Cardiology, [facility] [address] [place] [address] Uriel Warren DO [address] [place] [address] S/P drug eluting coronary stent placement*; Dyslipidemia, goal LDL below 70; Coronary artery disease of [place] artery [place] heart with stable angina pectoris (HCC); S/P CABG x 2; S/P aortic valve replacement with bioprosthetic valve; Essential (primary) hypertension; Pleural effusion Allergies Active Allergy Reactions Criticality Noted Date Comments Allopurinol Rash 04/17/2020 Pollen 04/22/2012 Seasonal allergies Molds & Smuts 07/01/2022 documented as of this encounter (statuses as of 07/22/2024) Medications Medication Sig Dispensed Refills Start Date [...] the morning. 90 Tablet 3 06/29/2024 Active predniSONE 10 MG Oral Tablet (Deltasone)Indicat ions:Acute cough,Wheeze Take 5 tablets by mouth for 2 days, 4 tabs for 2 days, 3 tabs for 2 days, 2 tabs for 2 days 1 tab for 2 days 30 Tablet 07/05/2024 Active Additional Information Patient not taking.Reported on 07/22/2024 Compressor NebulizerIndicatio ns:Acute cough,Wheeze,Hodgk in lymphoma, unspecified Hodgkin lymphoma type, unspecified body region (HCC),Acute bronchospasm Inhale via nebulizer. Use with medication every 4 hours. 1 Each 1 07/06/2024 Active Albuterol Sulfate (2.5 MG/3ML) 0.083% Inhalation Nebulization Solution (Proventil)Indicat ions:Acute cough,Wheeze,Hodgk in lymphoma, unspecified Hodgkin lymphoma type, unspecified body [...] the morning. 100 Tablet 3 07/22/2024 Active Atorvastatin Calcium 80 MG Oral Tablet (Lipitor) Take 1 Tablet by mouth at bedtime. 90 Tablet 3 04/09/2024 4 Discontinue d(Adverse reaction) Nitroglycerin 0.4 MG Sublingual Tablet Sublingual (Nitrostat) Place 1 Tablet under the tongue every 5 minutes as needed for Pain, Chest. up to 3 doses in 15 minutes 25 Tablet 11 04/09/2024 4 Discontinue d(Refill) Hospital, Clinic, or Other Facility Administered Medication Ordered Dose Route Frequency Start Date End Date Status Albuterol Sulfate (Proventil) (2.5 MG/3ML) 0.083% inhalation solution 2.5 mgIndications:Hodgkin lymphoma, unspecified Hodgkin lymphoma type, unspecified body region (HCC) 2.5 mg NEBULIZER PRN 04/06/2024 Active documented as of this encounter (statuses as of 07/22/2024) Active Problems Problem Noted Date Diagnosed Date [...] prox RCA 80% stenosis with placement of 3.85q06wb Xience Skypoint WEST, post-dilated with 3.5mm NC Balloon reducing stenosis to 0% with JAMES 3 flow Essential (primary) hypertension 12/08/2023 Hyperlipidemia 12/08/2023 Atherosclerosis of [place] co ronary artery without angina pectoris 12/08/2023 [...] as of this encounter (statuses as of 07/22/2024) Resolved Problems Problem Noted Date Diagnosed Date [...] as of this encounter (statuses as of 07/22/2024) Immunizations Name Administration Dates Next Due COVID-19 [...] on file documented as of this encounter Last Filed Vital Signs Vital Sign Reading Time Taken Comments Blood Pressure 148/96 07/22/2024 10:11 AM EDT Pulse 96 07/22/2024 10:11 AM EDT Temperature - - Respiratory Rate 16 07/22/2024 10:11 AM EDT Oxygen Saturation - - Inhaled Oxygen Concentration - - Weight 97.2 kg (214 lb 3.2 oz) 07/22/2024 10:11 AM EDT Height - - Body Mass Index 33.55 07/05/2024 4:28 PM EDT documented in this encounter Functional Status Functional Status Response [...] as of this encounter Progress Notes * Uriel Warren DO - 07/22/2024 10:09 AM EDT SUBJECTIVE: Patient returns today for follow up of recent cardiac catheterization with stenting to the proximal right coronary artery. History of CAD s/p coronary artery bypass grafting x2 and AVR 2016, labile hypertension, and dyslipidemia. Patient referred for cardiac catheterization March 2024 due to ongoing exertional symptoms, including lightheadedness, dyspnea, and hypotension. Results of coronary angiography listed below demonstrating 80% proximal RCA stenosis successfully treated with drug-eluting stent. Feeling better since stent implantation. Participating in cardiac rehab. Exercise tolerance improving. Notes chronic wheeze, cough, and shortness of breath attempted to COPD/reactive airways disease.Utilizing albuterol daily. Denies orthopnea, PND, lower extremity edema, or claudication. No palpitations, lightheadedness, dizziness, syncope, or near syncope. Denies signs/symptoms of GI/ blood loss. Noticing intermittent hot flashes which he attributes to recent titration of atorvastatinto 80 mg. Previously tolerated 20 mg daily. Cardiac catheterization report April 09, 2024: 1. Severe multivessel coronary artery disease 2. 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 2/2 bypass widely patent [...] radiation Essential (primary) hypertension Hyperlipidemia Atherosclerosis of [place] coronary artery without angina pectoris Angina at [...] mouth daily. Only taking at bedtime) 68 [id number] Probenecid 500 MG Oral Tablet (Benemid) Take 1 Tablet by mouth in the morning and 1 Tablet before bedtime. 60 Tablet 5 Aspirin 81 MG Oral Tablet Chewable Take 1 Tablet by mouth in the morning. Do not start before April 10, 2024. 90 Tablet 3 Atorvastatin Calcium 80 MG Oral Tablet (Lipitor) Take 1 Tablet by mouth at bedtime. 90 Tablet 3 Torsemide 20 MG Oral Tablet (Demadex) Take 1 Tablet by mouth in the morning. 90 Tablet 3 Clopidogrel Bisulfate 75 MG Oral Tablet (pLAVix) Take 1 Tablet by mouth in the morning. Do not start before April 10, 2024. 90 Tablet 3 Nitroglycerin 0.4 MG Sublingual [...] mouth in the morning. 90 Tablet 3 predniSONE 10 MG Oral Tablet (Deltasone) Take 5 tablets by mouth for 2 days, 4 tabs for 2 days, 3 tabs for 2 days, 2 tabs for 2 days 1 tab for 2 days 30 Tablet 0 Compressor Nebulizer Inhale via nebulizer. Use with medication every 4 hours. 1 Each 1 Albuterol Sulfate (2.5 MG/3ML) 0.083% Inhalation Nebulization Solution (Proventil) Inhale 1 Vial via nebulizer every 4 hours as needed for Wheezing. 180 mL 5 Current Facility-Administered Medications Medication Dose Route Frequency Provider Last Rate Last Admin Albuterol Sulfate (Proventil) (2.5 MG/3ML) 0.083% inhalation solution 2.5 mg 2.5 mg Nebulizer PRN 2.5 mg at 04/06/24 1223 Lipid Panel Results: Results for orders placed or performed in visit on 10/02/23 LIPID PANEL WITHOUT DIRECT LDL Result Value Ref Range HOURS FASTING TRIGLYCERIDES-OUTSIDE LAB 69 CHOLESTEROL-OUTSIDE LAB 120 HDL-OUTSIDE LAB 38 CHOL/HDL RATIO-OUTSIDE LAB 3.2 LDL (CALCULATED)-OUTSIDE LAB 68 Lab Results Component Value Date/Time TSH - MASSIMO 1.43 11/09/2015 04:17 AM CBC Results: Results for [...] 0 <=0 /100 WBCs OBJECTIVE/PHYSICAL EXAMINATION: BP 148/96 | Pulse 96 | Resp 16 | Wt 97.2 kg (214 lb 3.2 oz) | BMI 33.55 kg/m | BSA 2.14 m General: NAD, AAO x3, well nourished. [...] radial=2/4. Neuro: No focal deficits. ASSESSMENT: 1. Coronary artery disease status post coronary artery bypass grafting x2 (SVG to LAD, SVG to OM2) 2016 -cardiac catheterization performed 03/2024 demonstrating severe proximal RCA stenosis successfully treated with drug-eluting stent implantation. -improved exercise tolerance postprocedure 2. Moderate to severe aortic valve stenosis status post bioprosthetic AVR with a 20 mm [place]el prosthesis. -normal bioprosthetic aortic valve function per echocardiogram 12/2023 3. Labile hypertension 4. Postoperative paroxysmal atrial fibrillation and junctional bradycardia without recurrence. -chronic sinus tachycardia reported -average heart rate 94 beats per minute per recent Holter monitor 07/2023 5. Dyslipidemia goal LDL less than 70 mg/dL -controlled with combination of atorvastatin and Zetia. -possible intolerance to high-dose atorvastatin (hot flashes) 6. History of lymphoma and mantle radiation therapy in the 1970s. 7. Chronic hypoxemic respiratory failure secondary to restrictive lung disease and chronic right pleural effusion. -mild pulmonary hypertension per right heart catheterization -followed by Pulmonary Medicine PLAN: Reduce atorvastatin to 40 mg daily. Repeat fasting lipid panel in 3 months. Reviewed importance of continuing dual antiplatelet therapy uninterrupted for minimum of 6 months post percutaneous intervention. Continue other cardiovascular medications including torsemide, Zetia, lisinopril, and carvedilol asordered. Antibiotic prophylaxis recommended prior to all dental procedures including routine cleaning. Continue cardiac rehab 3 days per week. Pulmonary medicine follow-up as scheduled. Cardiology followup in 6 months. I spent a total of 30-39 minutes (exact time 35 mins) on the date of service in preparation, delivery, and documentation of the care provided to Michael Hughes excluding any time spent in the performance of separately billed services. Uriel Warren DO, [facility] Associate Cardiology - Tino Seay documented in this encounter Nursing Notes * Dee Dickerson CMA - 07/22/2024 10:01 AM EDT Examination Room: 11 Name: Michael Hughes Date of : (1955). Reason for Visit: 3 month rtc Interim Hospitalization(s): denies Problems/Concerns: States that about a month ago he started to have breathing difficulties, went onprednisone for 10 days and used nebulizer and that helped. Still uses nebulizer prn for wheezing. States he did not have these issues prior to cath/stent. After cath on 04/13 visit he stated SOB had resolved but now he is having issues again. Wondering if use of albuterol is making things worse. Also reports hot flashes since stent placement. 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 Chest Pain/SOB: Denies chest pain, but has back pain between shoulder blades. SOB explained above. [facility] Discussed: Yes [facility] is a way you can talk to [...] Department Care Team (Latest Contact Info) Description 07/26/2024 12:00 PM EDT Office Visit Pulmonary Medicine, [facility] [address] [facility] [place] [address] Marino Rodriguez MD [address] [place] [address] 08/13/2024 2:00 PM EDT Office Visit Dermatology [facility] [address] [place] [address] Juanito Browning MD [address] [place] [address] 09/17/2024 2:20 PM EST Office Visit Family Practice [address] [place] [address] 293 [facility] [place] [address] Chelle Vasquez DO [address] [place] [address] 11/03/2024 8:00 AM EST Hospital Encounter ENDO [facility], Endoscopy Room [facility] [address] [facility] [place] [phone] Dallas Askew MD [address] [facility] [place] [address] 11/03/2024 8:00 AM EST - 11/03/2024 9:00 AM EST Surgery ENDO [facility], Endoscopy Room [facility] [address] [facility] [place] [phone] Dallas [facility] [address] [facility] [address] COLONOSCOPY FLEXIBLE PROXIMAL DIAGNOSTIC 11/18/2024 11:00 AM EST Office Visit Dermatology [facility] [address] [place] [address] Gladys Srivastava MD 200 [facility] [place] [address] 02/17/2025 11:30 AM EDT Office Visit Cardiology, [facility] [address] [place] [address] Uriel Warren, DO [address] [place] [address] 02/17/2025 2:30 PM EDT Office Visit Hematology/Oncology [facility] [place] 200 [facility] [address] Leonarda Trevino CRNP [address] [facility] [place] [address] Scheduled Orders Name Type Priority Associated Diagnoses Orde r Schedule LIPID PANEL WITH DIRECT LDL IF TG IS HIGH Lab Routine Dyslipidemia, goal LDL below 70 Expected: 01/20/2025 (Approximate), Expires: 07/22/2025 Scheduled Procedures Name Priority Associated Diagnoses Date/Ti [...] this encounter Medical Devices Implanted Type Area Generator Mechanic Device Identifier Shelf Expiration Date Model / Serial / Lot Marker Coronary [facility]-Sd - [id number] Implanted:Qty: 2 on 11/10/2015 by [place] Colón [place] [facility] [place]: Heart [employer] [facility]-SD / / [id number] Valve Heart Aortic Epic 25mm - [id number] - [id number] Implanted:Qty: 1 on 11/10/2015 by Jorge Colón MD [place] [facility] [place]/A: Heart ST ARIEL : CARDIOVASCULAR 03/05/2019 [id number] 5-00 / [id number] 1 / Sut Steel 6 M654g - [id number] Implanted:Qty: 4 on 11/10/2015 by Jorge Colón MD [place] [facility] [place]A: Chest JNJ : [employer] M654G / / Lens Intraoc 16.5 - [id number] - [id number] Implanted:Qty: 1 on 08/22/2020 by Pola Lozano MD at OR [facility] Right: Eye [employer] 02/09/2025 [id number] / [id number] / [id number] Lens Intraoc 16.0 - [id number] - [id number] Implanted:Qty: 1 on 09/05/2020 by Pola Lozano MD at OR [facility] Left: Eye BAUSCH [employer] LOMB 02/09/2025 [id number] 0 / [id number] / [id number] Clip Quick 2.8mm 230cm - [id number] Implanted:Qty: 1 on 04/23/2021 by Dallas Askew MD at ENDOSCOPY [facility] Colon [employer] 12/11/2023 [id number]-[id number] .A / / 13K Cath Thermodilution 6fr - [id number] Implanted:Qty: 1 on 04/09/2024 by Jose Cruz Hill DO at [place] [place] [employer] DYLAN [id number] 10/27/2025 [id number] / / [id number] Stent Xience Skypoint 3.25x15 - [id number] Implanted:Qty: 1 on 04/09/2024 by Jose Cruz Hill DO at CARD[facility] [employer]STELL[facility]OS LABS : VASCULAR DEVICES 01/04/2027 [id number] / / [id number] documented as of this encounter Visit Diagnoses Diagnosis S/P drug eluting coronary stent placement- Primary Postsurgical percutaneous transluminal coronary angioplasty status Dyslipidemia, goal LDL below 70 Other and unspecified hyperlipidemia Coronary 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 No Care Teams Auto Bench Mechanic Relationship Specialty Start Date End Date Chelle Vasquez DO [address] [place] [address] PCP - General Family Medicine 03/30/24 documented as of this encounter"
--- OUTSIDE RECORDS SUMMARY | 2024-12-08 08:21 | External Medical Summary | Summary of Care ---
Author Name Unknown Organization [facility] Address [address] [facility] [place] [address] Phone [phone] Care Team Providers Care Ointment Mill Tender Name Role Phone PedroChelle Clifton MUÑOZ Primary Care Provider [phone] Reason for Visit * Reason Onset Date Comments Test Results 07/27/2024 labs Encounter Details Date Type Department Care Team (Late st Contact Info) Description 07/27/2024 Telephone Pulmonary Medicine, [facility] [address] [place] [address] Marino Rodriguez [facility] [address] [facility] [address] Test Results (labs) Allergies Active Allergy Reactions Criticality Noted Date Comments Allopurinol Rash 04/17/2020 Pollen 04/22/2012 Seasonal allergies Molds & Smuts 07/01/2022 documented as of this encounter (statuses as of 07/27/2024) Medications Medication Sig Dispensed Refills Start Date [...] the morning. 90 Tablet 06/29/2024 Active Compressor NebulizerIndication s:Acute cough,Wheeze,Hodgki n [...] Respimat 2.5 MCG/ACT Inhalation Aerosol Solution (Tiotropium [place] Monohydrate) Inhale 2 Puffs by mouth in [...] as of this encounter (statuses as of 07/27/2024) Active Problems Problem Noted Date Diagnosed Date [...] prox RCA 80% stenosis with placement of 3.34b73kc Xience Skypoint WEST, post-dilated with 3.5mm NC Balloon reducing stenosis to 0% with JAMES 3 flow Essential (primary) hypertension 12/08/2023 Hyperlipidemia 12/08/2023 Atherosclerosis of [place] co ronary artery without angina pectoris 12/08/2023 [...] as of this encounter (statuses as of 07/27/2024) Resolved Problems Problem Noted Date Diagnosed Date [...] as of this encounter (statuses as of 07/27/2024) Immunizations Name Administration Dates Next Due COVID-19 [...] encounter Miscellaneous Notes * Telephone Encounter - Chrissie Herrera LPN - 07/27/2024 9:30 AM EDT ----- Message from Marino Rodriguez MD sent at 07/27/2024 7:52 AM EDT ----- CBC 07/26/2024: Eosinophil count is elevated at 8%, normal less than 6%. Was recently up to 11%, suggestive of allergen related reactivity. Chart note documented in this encounter Plan of Treatment Upcoming Encounters Date Type Department Care Team (Latest Contact Info) Description 08/13/2024 2:00 PM EDT Office Visit Dermatology [facility] [address] [place] [address] Juanito Browning MD [address] [place] [address] 09/14/2024 10:20 AM EST Office Visit Pulmonary Medicine, [facility] [address] [facility] [place] [address] Marino Rodriguez MD [address] [place] [address] [address] 09/17/2024 2:20 PM EST Office Visit Family Practice [address] [place] [address] 293 [place] [address] Chelle Vasquez, DO [address] [place], [place] [address] 11/03/2024 8:00 AM EST Hospital Encounter ENDO OSS, Endoscopy Room [facility] [address] [place], [place] [phone] Dallsa Askew MD [address] [place] [address] 11/03/2024 8:00 AM EST - 11/03/2024 9:00 AM EST Surgery ENDO OSS, Endoscopy Room [facility] [address] [place] [phone] Dallas Askew MD [address] [place] [address] COLONOSCOPY FLEXIBLE PROXIMAL DIAGNOSTIC 11/18/2024 11:00 AM EST Office Visit Dermatology [facility] [address] [facility] [place] [address] Gladys Srivastava MD [address] [facility] [place] [address] 02/17/2025 11:30 AM EDT Office Visit Cardiology, [facility] [address] [place] [address] Uriel Warren DO [address] [place] [address] 02/17/2025 2:30 PM EDT Office Visit Hematology/Oncology [facility] [address] [place] [phone] Leonarda Trevino CRNP [address] [facility] [place] [address] Scheduled Procedures Name Priority Associated Diagnoses Date/Ti [...] this encounter Medical Devices Implanted Type Area Forensic Nurse Device Identifier Shelf Expiration Date Model / Serial / Lot Marker Coronary [facility] - [id number] Implanted:Qty: 2 on 11/10/2015 by Jorge Colón MD [place] [facility] N/A: Heart [employer] [facility] / / [id number] Valve Heart Aortic Epic 25mm - [id number] - [id number] Implanted:Qty: 1 on 11/10/2015 by Jorge Colón MD [place] [facility] N/A: Heart ST [facility]NY : CARDIOVASCULAR 03/05/2019 [id number] 5-00 / [id number] / Sut Steel 6 M654g - [id number] Implanted:Qty: 4 on 11/10/2015 by Jorge Colón MD [place] [facility] N/A: Chest JNJ : [employer] M654G / / Lens Intraoc 16.5 - [id number] - [id number] Implanted:Qty: 1 on 08/22/2020 by Pola Lozano MD at OR [facility] Right: Eye [employer] 02/09/2025 [id number] / [id number] / [id number] Lens Intraoc 16.0 - [id number] - [id number] Implanted:Qty: 1 on 09/05/2020 by Pola Lozano MD at OR [facility] Left: Eye [employer]OM[employer] 02/09/2025 [id number] 0 / [id number] / [id number] Clip Quick 2.8mm 230cm - [id number] Implanted:Qty: 1 on 04/23/2021 by Dallas Askew MD at ENDOSCOPY [facility] Colon [employer] 12/11/2023 [id number]-[id number] .A / / 13K Cath Thermodilution 6fr - [id number] Implanted:Qty: 1 on 04/09/2024 by Jose Cruz Hill DO at [facility] [employer]AN [id number] 10/27/2025 [id number] / / [id number] Stent Xience Skypoint 3.25x15 - [id number] Implanted:Qty: 1 on 04/09/2024 by Jose Cruz Hill DO at [facility] [employer] : VASCULAR DEVICES 01/04/2027 [id number] / / [id number] documented as of this encounter Advance Directives [...] Power of Attor baldev? No Care Teams Ointment Mill Tender Relationship Specialty Start Date End Date Chelle Vasquez DO [address] [place] [address] PCP - General Family Medicine 03/30/24 documented as of this encounter
--- OUTSIDE RECORDS SUMMARY | 2024-12-08 08:21 | External Medical Summary ---
Author Name Unknown Address Unknown Organization [facility] [address] [place] [address] Laboratory Report Ordering Provider Test Date Status SHARLENE CASTLE 07/26/2024 12:45:35 Final Observation Date Value Abnormality Reference (Units ) Status SYNC LEUKOCYTES IN BLOOD BY AUTOMATED COUNT 07/26/2024 12:45:35 8.08 4.00-10.80 (K/uL) Final Segs 07/26/2024 12:45:35 62.6 40.0-75.0 (%) Final Lymphs % 07/26/2024 12:45:35 15.3 Below low normal 18.0-42.0 (%) Final Monos 07/26/2024 12:45:35 13.5 Above high normal 1.0-11.0 (%) Final Eosinophils 07/26/2024 12:45:35 8.4 Above high normal 0.0-6.0 (%) Final Basos 07/26/2024 12:45:35 0.2 0.0-2.0 (%) Final Absolute Segs 07/26/2024 12:45:35 5.05 1.80-7.70 (K/uL) Final Lymphs, absolute 07/26/2024 12:45:35 1.24 1.00-4.80 (K/ul) Final Monos, Abs 07/26/2024 12:45:35 1.09 0.00-1.10 (K/uL) Final Eos, Abs 07/26/2024 12:45:35 0.68 0.00-0.70 (K/uL) Final Basos, Abs 07/26/2024 12:45:35 0.02 0.00-0.20 (K/uL) Final Performing Location [facility] [address] - [address] [place] [address]
--- OUTSIDE RECORDS SUMMARY | 2024-12-08 08:21 | External Medical Summary | Summary of Care ---
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 Wheezing, inflammation x mo./ collapsed lung. Ever since he started the oxygen at home. And worse since finishing steroid. Having trouble sleeping. Visited someone in hospital 3-4 days and seems like started having these symptoms. He was masking and washing his hands had no symptoms prior to visiting his sister in law. Encounter Details Date Type Department Care Team (Late st Contact Info) Description 07/26/2024 12:00 PM EDT Office Visit Pulmonary Medicine, [facility] [address] [place] [address] Marino Rodriguez MD [address] [facility] [id number] Moderate persistent asthma without complication* Allergies Active [...] morning. 90 Tablet 3 06/29/2024 Active Compressor NebulizerIndicati ons:Acute cough,Wheeze,Hodg kin [...] the morning. 100 Tablet 3 07/22/2024 Active Fluticasone-Salme terol 115-21 MCG/ACT Inhalation Aerosol (Advair HFA) Inhale 2 Puffs by mouth in the morning and 2 Puffs before bedtime. 12 g 12 07/26/2024 Active Spiriva Respimat 2.5 MCG/ACT Inhalation Aerosol Solution (Tiotropium [place] Monohydrate) Inhale 2 Puffs by mouth in the morning. 4 g 07/26/2024 08/25/20 24 Active Azithromycin 250 MG Oral [...] then STOP. 18 Tablet 1 07/26/2024 Active Fluticasone-Salme terol 115-21 MCG/ACT Inhalation Aerosol (Advair HFA) Inhale 2 Puffs by mouth in the morning and 2 Puffs before bedtime. 12 g 12 07/26/2024 Active predniSONE 10 MG Oral Tablet (Deltasone)Indica [...] prox RCA 80% stenosis with placement of 3.37b70rn Xience Skypoint WEST, post-dilated with 3.5mm NC Balloon reducing stenosis to 0% with JAMES 3 flow Essential (primary) hypertension 12/08/2023 Hyperlipidemia 12/08/2023 Atherosclerosis of [place] co ronary artery without angina pectoris 12/08/2023 [...] Sign Reading Time Taken Comments Blood Pressure 132/84 07/26/2024 11:52 AM EDT Pulse 96 07/26/2024 11:52 AM EDT Temperature 36.2 C (97.2 F) 07/26/2024 11:52 AM E DT Respiratory Rate 16 07/26/2024 11:52 AM EDT Oxygen Saturation 95% 07/26/2024 11:53 AM EDT ra-amb Inhaled Oxygen Concentration - - Weight 98.4 kg (217 lb) 07/26/2024 11:52 AM EDT Height 170.2 cm (5' 7") 07/26/2024 11:52 AM EDT Body Mass Index 33.99 07/26/2024 11:52 AM EDT documented in this [...] as of this encounter Progress Notes * Marino Rodriguez MD - 07/26/2024 12:02 PM EDT Images from the original note were not included. 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 Post viral URI Moderate persistent asthma with flare-up Plan: Add Advair HFA + Spiriva Complete Z pack + 15 day prednisone taper Allergen screening profile 2 LPM oxygen q.h.s. Maintain physical activity status Call with change in respiratory symptoms status F/u 6 weeks Follow Up: Return in about 6 weeks (around 09/06/2024) for Clinic Visit. 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 Main Follow Up: Return in about 6 weeks (around 09/06/2024) for Clinic Visit. | For: Clinic Visit | Check-out note: tain physical activity status Call with change in respiratory symptoms status F/u 6 weeks Marino Rodriguez MD Data review: +ve NPOX 04/22/24 2 LPM Ordered IR Right thoracentesis 04/08/24 IMPRESSION: Thoracentesis was not performed d/t inability to aspirate any pleural fluid. CT chest shows loculated right pleural effusion with elevated right hemidiaphragm and basilar atelectasis in right lower lobe subsegments. Incidental finding of dilated esophagus noted. XR CHEST 2 VIEWS - 03/23/2024 FINDINGS FOREIGN BODIES, SUPPORT TUBES, LINES, DEVICES: Intact sternal wires. Mediastinal surgical material typical of multivessel CABG. Additional surgical clips in the upper abdomen. LUNGS, PLEURA: Right basilar opacity typical of a moderately sized pleural effusion and passive atelectasis. Superimposed rounded opacity in the right infrahilar region, probably a component of rounded atelectasis, which may be the chronically organized residua of airspace disease overlying a postoperative pleural fluid collection seen on review of the remote comparison chest CT. No pneumothorax. CARDIOVASCULAR, MEDIASTINUM: Unchanged cardiomediastinal silhouette. Atherosclerotic calcification of the aorta. OTHER: None. IMPRESSION IMPRESSION 1. Moderately sized right pleural effusion. Underlying rounded opacity probably chronic rounded atelectasis, with other etiologies not excluded. Recommend further evaluation with CT chest, preferablywith IV contrast provided there is no contraindication. CT CHEST W CONTRAST DATE TIME: 03/31/2024 LUNGS: There appears to be mild edema. Also noted is scattered atelectasis, most pronounced in the right lower lobe, where there is round atelectasis. No suspicious nodules or infiltrates are seen. IMPRESSION 1. Loculated right pleural effusion with associated round atelectasis. 2. Additional chronic findings, as above. Subjective CC: Chief Complaint Patient presents with Follow Up Follow up. Wheezing, inflammation x mo./ collapsed lung. Ever since he started the oxygen at home. And worse since finishing steroid. Having trouble sleeping. Visited someone in hospital 3-4 days andseems like started having these symptoms. He was masking and washing his hands had no symptoms prior to visiting his sister in law. HPI: Nursing Notes: Samia Mccurdy LPN 07/26/24 1200 Signed Chief Complaint Patient presents with Follow Up Follow up. Wheezing, inflammation x mo. Ever since he started the oxygen at home. And worse since finishing steroid. Having trouble sleeping. Interm History/Respiratory Symptoms Cough: yes-phlegm wont come up. Worse when he lays down Hemoptysis: no Sinus Symptoms: no Hospitalizations: no ED Trips: no Triggers: no Nocturnal: sleeps with head elevated-wedge. CPAP/BiPAP/O2: O2 2 L at night./nebulizer. DME Supplier: [employer]. Flu Vaccine: 2023 Pneumovax: 2020 Prevnar: 2019 COVID 19: x6 . MMRC Dyspnea Scale = 4 (I am too breathless to leave the house or I am breathless when dressing) Objective Filed Vitals: 07/26/24 1152 07/26/24 1153 BP: 132/84 Pulse: 96 Resp: 16 Temp: 36.2 C (97.2 F) TempSrc: Tympanic SpO2: 94% 95% Weight: 98.4 kg (217 lb) Height: 1.702 m (5' 7") Exam: [...] IV contrast provided there is no contraindication. VASC DUPLEX VENOUS LE UNILAT Result Date: 02/20/2024 IMPRESSION: 1. No evidence of left lower extremity deep venous thrombosis. Please note that the left peroneal veins are not visualized. Slow venous flow is noted. 2. Superficial venous thrombus is present at the patient's area of palpable concern at the level of the distal thigh. Available Radiologic data was reviewed by me in PACS. The images were shown to the patient and findings were discussed with the patient. HOME MEDICATIONS: Azithromycin 250 MG Oral Tablet (Zithromax Z-Garth) Fluticasone-Salmeterol 115-21 MCG/ACT Inhalation Aerosol (Advair HFA) predniSONE 10 MG Oral Tablet (Deltasone) Spiriva Respimat 2.5 MCG/ACT Inhalation Aerosol Solution (Tiotropium Kay[place] Monohydrate) Atorvastatin Calcium 40 MG Oral Tablet (Lipitor) Nitroglycerin 0.4 MG Sublingual Tablet Sublingual (Nitrostat) Albuterol Sulfate (2.5 MG/3ML) 0.083% Inhalation Nebulization Solution (Proventil) Compressor Nebulizer Lisinopril 10 MG Oral Tablet (Prinivil) Ventolin HFA 108 (90 Base) MCG/ACT Inhalation Aerosol Solution Ezetimibe 10 MG Oral Tablet (Zetia) Omeprazole [...] Oral Tablet (Ultram) Vitamin D 50 MCG (2000 UT) Oral Capsule Fexofenadine HCl 180 MG Oral Tablet Albuterol Sulfate (Proventil) (2.5 MG/3ML) 0.083% inhalation solution 2.5 mg ROS: No reported history of Hemoptysis, Hematemesis, [...] performed by Wagner Hernandez MD at ENDOSCOPY [facility] COLONOSCOPY, DIAGNOSTIC (RECTUM) 04/23/2021 adenomatous & hyperplastic polyps, diverticulosis, repeat 6-12 mo / COLONOSCOPY FLEXIBLE PROXIMAL DIAGNOSTIC performed by Dallas Askew MD at ENDOSCOPY [facility] COLONOSCOPY, DIAGNOSTIC (RECTUM) 10/22/2022 benign adenomatous & serrated adenomatous polyps, diverticulosis, repeat 6 mo / COLONOSCOPY FLEXIBLE PROXIMAL DIAGNOSTIC performed by Dallas Askew MD at ENDOSCOPY [facility] COLONOSCOPY, DIAGNOSTIC (RECTUM) 04/08/2023 hemorrhoids/diverticulosis/biopsies show adenomatous and hyperplastic polyps/recall 6 months/COLONOSCOPY FLEXIBLE PROXIMAL DIAGNOSTIC performed by Dallas Askew MD at ENDOSCOPY [facility] COLONOSCOPY, DIAGNOSTIC (RECTUM) 10/21/2023 diverticulosis/hemorrhoids/multiple polyps/biopsies show adenomatous and hyperplastic polyps/recall6 months/COLONOSCOPY FLEXIBLE PROXIMAL DIAGNOSTIC performed by Dallas Askew MD at ENDOSCOPY [facility] CORONARY ANGIOGRAPHY W/RIGHT+LEFT CATH N/A 04/09/2024 CORONARY ANGIOGRAPHY W/RIGHT+LEFT CATH performed by Jose Cruz Hill DO at [facility] CORONARY ARTERIES BYPASS, TWO 11/10/2015 CORONARY ARTERY BYPASS GRAFT WITH 2 VEIN GRAFTS performed by Jorge Colón MD at [facility] ENDO,VIDEO ASSIST HARVEST KAROLINE 11/10/2015 ENDOSCOPY VIDEO ASSISTED HARVEST VEIN performed by Jorge Colón MD at [facility] REMOVE CATARACT, INSERT LENS PROSTH Right 08/22/2020 RIGHT EXTRACAPSULAR CATARACT REMOVAL WITH INTRAOCULAR LENS performed by Pola Lozano MD at [facility] REMOVE CATARACT, INSERT LENS PROSTH Left 09/05/2020 LEFT EXTRACAPSULAR CATARACT REMOVAL WITH INTRAOCULAR LENS performed by Pola Lozano MD at [facility] REPLACEMENT AORTIC VALVE, BYPASS WITH PROSTHETIC VALVE 11/10/2015 REPLACEMENT AORTIC VALVE performed by Jorge Colón MD at [facility] Social History Socioeconomic History Marital status: Tobacco Use Smoking status: Never Smokeless tobacco: Never Vaping Use Vaping status: Never Used Substance and Sexual Activity Alcohol use: Yes Comment: occ Drug use: No Social Determinants of Health Financial Resource Strain: [...] Stability Do you currently live in a skilled nursing or have no steady place to sleep [...] Nursing Notes * Samia Mccurdy LPN - 07/26/2024 11:54 AM EDT Chief Complaint Patient presents with Follow Up Follow up. Wheezing, inflammation x mo. Ever since he started the oxygen at home. And worse since finishing steroid. Having trouble sleeping. Interm History/Respiratory Symptoms Cough: yes-phlegm wont come up. Worse when he lays down Hemoptysis: no Sinus Symptoms: no Hospitalizations: no ED Trips: no Triggers: no Nocturnal: sleeps with head elevated-wedge. CPAP/BiPAP/O2: O2 2 L at night./nebulizer. DME Supplier: [employer]. Flu Vaccine: 2023 Pneumovax: 2020 Prevnar: 2019 COVID 19: x6 . MMRC Dyspnea Scale = 4 (I am too breathless to leave the house or I am breathless when dressing) documented in this encounter Plan of Treatment Upcoming Encounters Date Type Department Care Team (Latest Contact Info) Description 08/13/2024 2:00 PM EDT Office Visit Dermatology [facility] 200 [place] [address] Juanito Browning MD [address] [place] [address] 09/14/2024 10:20 AM EST Office Visit Pulmonary Medicine, [facility] 132 [facility] [place] [address] Marino Rodriguez MD [address] [place] [facility] [place] [address] 09/17/2024 2:20 PM EST Office Visit Family Practice [address] [place] [address] 293 [place] [address] Chelle Vasquez DO [address] [facility] [address] 11/03/2024 8:00 AM EST Hospital Encounter ENDO [facility], Endoscopy Room [facility] [address] [facility] [place] [phone] Dallas Askew MD 132 [facility] [place] [address] 11/03/2024 8:00 AM EST - 11/03/2024 9:00 AM EST Surgery ENDO [facility], Endoscopy Room [facility] [address] [place] [phone] Dallas Askew MD [address] [place] [address] COLONOSCOPY FLEXIBLE PROXIMAL DIAGNOSTIC 11/18/2024 11:00 AM EST Office Visit Dermatology [facility] [address] [place] [address] Gladys Srivatsava MD [address] [place] [address] 02/17/2025 11:30 AM EDT Office Visit Cardiology, [facility] [address] [facility] [place] [address] Uriel Warren DO 132 [facility] [place] [address] 02/17/2025 2:30 PM EDT Office Visit Hematology/Oncology [facility] [address] [place] [phone] Leonarda Trevino CRNP [address] [place], [place] [address] [address] Pending Results Name Type Priority Associated Diagnoses Date /Time [facility] IGE PROFILE Lab Routine Moderate persistent asthma without complication 07/26/2024 12:45 PM EDT IGE Lab Routine Moderate persistent asthma without complication 07/26/2024 12:45 PM EDT Scheduled Orders Name Type Priority Associated Diagnoses Orde r Schedule [facility] PROFILE Lab Routine Moderate persistent asthma without complication Expected: 07/26/2024 (Approximate), Expires: 07/26/2025 IGE Lab Routine Moderate persistent asthma without complication Expected: 07/26/2024 (Approximate), Expires: 07/26/2025 Scheduled Procedures Name Priority Associated Diagnoses Date/Ti [...] this encounter Medical Devices Implanted Type Area Clerk Specialist Device Identifier Shelf Expiration Date Model / Serial / Lot Marker Coronary [facility] - [id number] Implanted:Qty: 2 on 11/10/2015 by Jorge Colón MD [place] [facility] N/A: Heart [employer] / / [id number] Valve Heart Aortic Epic 25mm - [id number] - [id number] Implanted:Qty: 1 on 11/10/2015 by Jorge Colón MD at [place] [facility] N/A: Heart ST LENNY : CARDIOVASCULAR 03/05/2019 [id number] 5-00 / [id number] / Sut Steel 6 M654g - [id number] Implanted:Qty: 4 on 11/10/2015 by Jorge Colón MD at [place] [facility] N/A: Chest JNJ : [employer] M654G / / Lens Intraoc 16.5 - [id number] - [id number] Implanted:Qty: 1 on 08/22/2020 by Pola Lozano MD at OR [facility] Right: Eye [employer] 02/09/2025 [id number] 5 / [id number] / [id number] Lens Intraoc 16.0 - [id number] - [id number] Implanted:Qty: 1 on 09/05/2020 by Pola Lozano MD at OR [facility] Left: Eye [employer] LOMB 02/09/2025 [id number] 0 / [id number] / [id number] Clip Quick 2.8mm 230cm - [id number] Implanted:Qty: 1 on 04/23/2021 by Dallas Askew MD at ENDOSCOPY [facility] Colon [employer] 12/11/2023 HX-202UR .A / / 13K Cath Thermodilution 6fr - [id number] Implanted:Qty: 1 on 04/09/2024 by Jose Cruz Hill DO at [facility] [employer] [id number] 10/27/2025 [id number] / / [id number] Stent Xience Skypoint 3.25x15 - [id number] Implanted:Qty: 1 on 04/09/2024 by Jose Cruz Hill DO at [facility] LAB[facility] [employer] : VASCULAR DEVICES 01/04/2027 [id number] / / [id number] documented as of this encounter Visit Diagnoses [...] Power of Attor baldev? No Care Teams Logger Driving Horses Relationship Specialty Start Date End Date Chelle Vasquez DO [address] [facility] [address] PCP - General Family Medicine 03/30/24 documented as of this encounter
--- OUTSIDE RECORDS SUMMARY | 2024-12-08 08:21 | External Medical Summary ---
Author Name Unknown Address Unknown Organization K01:[facility] [place] [facility] [address] [facility] [place] [address] Laboratory Report Ordering Provider Test Date Status SHARLENE CASTLE 07/26/2024 12:45:35 Final Observation Date Value Abnormality Reference (Units ) Status Dust Mite IgE, pteronyssinus 07/26/2024 12:45:35 6.54 Abnormal <0.10 (kUa/L) Final Dust Mite IgE, farinae 07/26/2024 12:45:35 9.08 Abnormal <0.10 (kUa/L) Final Cat Epithelium IgE 07/26/2024 12:45:35 <0.10 <0.10 (kUa/L) Final Dog Dander IgE 07/26/2024 12:45:35 <0.10 <0.10 (kUa/L) Final Bermuda grass IgE 07/26/2024 12:45:35 5.44 Abnormal <0.10 (kUa/L) Final Ruben IgE 07/26/2024 12:45:35 11.60 Abnormal <0.10 (kUa/L) Final Penicillium notatum IgE 07/26/2024 12:45:35 <0.10 <0.10 (kUa/L) Final Cladosporium IgE 07/26/2024 12:45:35 <0.10 <0.10 (kUa/L) Final Aspergillus IgE 07/26/2024 12:45:35 <0.10 <0.10 (kUa/L) Final Alternaria IgE 07/26/2024 12:45:35 <0.10 <0.10 (kUa/L) Final Setomelanomma rostrata IgE Ab [Units/volume] in Serum 07/26/2024 12:45:35 <0.10 <0.10 (kUa/L) Final Pullularia IgE 07/26/2024 12:45:35 0.15 <0.10 (kUa/L) Final Acremonium sp IgE Ab [Units/volume] in Serum 07/26/2024 12:45:35 <0.10 <0.10 (kUa/L) Final Maple IgE Ab [Units/volume] in Serum 07/26/2024 12:45:35 3.51 Abnormal <0.10 (kUa/L) Final Silver Birch IgE Ab [Units/volume] in Serum 07/26/2024 12:45:35 0.99 Abnormal <0.10 (kUa/L) Final Montgomery IgE 07/26/2024 12:45:35 3.67 Abnormal <0.10 (kUa/L) Final Elm IgE 07/26/2024 12:45:35 3.77 Abnormal <0.10 (kUa/L) Final [place] tree IgE 07/26/2024 12:45:35 3.32 Abnormal <0.10 (kUa/L) Final Gardner IgE 07/26/2024 12:45:35 2.38 Abnormal <0.10 (kUa/L) Final White Jose Carlos IgE 07/26/2024 12:45:35 4.07 Abnormal <0.10 (kUa/L) Final Pecan or Glenn Tree IgE 07/26/2024 12:45:35 2.42 Abnormal <0.10 (kUa/L) Final Common ragweed moapa (nAmb a) 1 IgE Ab [Units/volume] in Serum 07/26/2024 12:45:35 3.64 Abnormal <0.10 (kUa/L) Final Mugwort IgE 07/26/2024 12:45:35 2.53 Abnormal <0.10 (kUa/L) Final Plaintain (French) IgE 07/26/2024 12:45:35 2.93 Abnormal <0.10 (kUa/L) Final Quintanilla's Quarters IgE 07/26/2024 12:45:35 3.58 Abnormal <0.10 (kUa/L) Final Cocklebur IgE Ab [Units/volume] in Serum 07/26/2024 12:45:35 3.84 Abnormal <0.10 (kUa/L) Final Pigweed common IgE 07/26/2024 12:45:35 3.43 Abnormal <0.10 (kUa/L) Final Sheep sorrel IgE 07/26/2024 12:45:35 4.08 Abnormal <0.10 (kUa/L) Final
<0.10 kUa/L - Class 0 Allergen: Absence of Allergen Specific IgE
0.10-0.34 kUa/L - Class 0/1 Allergen: Low Level of Allergen Specific IgE
0.35-0.69 kUa/L - Class 1 Allergen: Low Level of Allergen Specific IgE
0.70-3.49 kUa/L - Class 2 Allergen: Moderate Level of Allergen Specific IgE
3.50-17.49 kUa/L - Class 3 Allergen: High Level of Allergen Specific IgE
17.5-49.99 kUa/L - Class 4 Allergen: Very High Level of Allergen Specific IgE
50.0-99.99 kUa/L - Class 5 Allergen: Very High Level of Allergen Specific IgE
>=100.0 kUa/L - Class 6 Allergen: Very High Level of Allergen Specific IgE Performing Location [facility] [place] [address] [facility] [address]
--- OUTSIDE RECORDS SUMMARY | 2024-12-08 08:21 | External Medical Summary | Summary of Care ---
Author Name Unknown Organization [facility] Address [address] [facility] [place] [address] Phone [phone] Care Team Providers Care Crew Leader/Control Room Operator Name Role Phone JyotsnaChelle montiel Clifton MUÑOZ Primary Care Provider Reason for Visit * Reason Onset Date Comments Test Results 07/28/2024 Allergen screeni ng profile Encounter Details Date Type Department Care Team (Late st Contact Info) Description 07/28/2024 Telephone Pulmonary Medicine, [facility] [address] [facility] [place] [address] Marino Rodriguez MD [address] [facility] [id number] Test Results (Allergen screening profile) Allergies Active Allergy Reactions Criticality Noted Date Comments Allopurinol Rash 04/17/2020 Pollen 04/22/2012 Seasonal allergies Molds & Smuts 07/01/2022 documented as of this encounter (statuses as of 07/28/2024) Medications Medication Sig Dispensed Refills Start Date [...] April 10, 2024. 90 Tablet 04/10/2024 Active Amoxicillin 500 MG Oral Capsule [...] as of this encounter (statuses as of 07/28/2024) Active Problems Problem Noted Date Diagnosed Date [...] prox RCA 80% stenosis with placement of 3.66u05iy Xience Skypoint WEST, post-dilated with 3.5mm NC Balloon reducing stenosis to 0% with JAMES 3 flow Essential (primary) hypertension 12/08/2023 Hyperlipidemia 12/08/2023 Atherosclerosis of [place] co ronary artery without angina pectoris 12/08/2023 [...] as of this encounter (statuses as of 07/28/2024) Resolved Problems Problem Noted Date Diagnosed Date [...] as of this encounter (statuses as of 07/28/2024) Immunizations Name Administration Dates Next Due COVID-19 [...] Telephone Encounter - Chrissie Herrera LPN - 07/28/2024 9:19 AM EDT MyG sent. * Telephone Encounter - Chrissie Herrera LPN - 07/28/2024 9:19 AM EDT ----- Message from Marino Rodriguez MD sent at 07/27/2024 4:45 PM EDT ----- Allergen screening profile is showing significant levels 3 and level 2 reactivity to multiple environmental allergen triggers including dust mites, Bermuda and Ruben grass, oak, walnut, cottonwood,white cheyenne, and multiple additional area grasses and shrubs as noted. IgE levels are also significantly elevated at 274, normal less than 214 units. Avoidance of known allergen triggers is strongly recommended documented in this encounter Plan of Treatment Upcoming Encounters Date Type Department Care Team (Latest Contact Info) Description 08/13/2024 2:00 PM EDT Office Visit Dermatology [place] [address] [place] [address] Juanito Browning MD [address] [place] [address] 09/14/2024 10:20 AM EST Office Visit Pulmonary Medicine, [facility] [address] [facility] [place] [address] Marino Rodriguez MD [address] [place] [address] 09/17/2024 2:20 PM EST Office Visit Family Practice [address] [place] [address] 293 [place] [address] Chelle Vasquez, DO 293 [place] [address] 11/03/2024 8:00 AM EST Hospital Encounter ENDO [facility], Endoscopy Room [facility] 132 [facility] [place] [phone] Dallas Askew MD [address] [facility] [place] [address] 11/03/2024 8:00 AM EST - 11/03/2024 9:00 AM EST Surgery ENDO [facility], Endoscopy Room [facility] [address] [facility] [place] [phone] Dallas Askew MD [address] [facility] [place] [address] COLONOSCOPY FLEXIBLE PROXIMAL DIAGNOSTIC 11/18/2024 11:00 AM EST Office Visit Dermatology [facility] [address] [place] [address] Gladys Srivastava MD [address] [place] [address] 02/17/2025 11:30 AM EDT Office Visit Cardiology, [facility] [place] [address] Uriel Warren, DO 132 [facility] [place] [address] 02/17/2025 2:30 PM EDT Office Visit Hematology/Oncology [place] 200 [facility] [place] [address] Leonarda Trevino CRNP [address] [place] [address] Scheduled Procedures Name Priority Associated Diagnoses Date/Ti [...] this encounter Medical Devices Implanted Type Area Accountant Controller Device Identifier Shelf Expiration Date Model / Serial / Lot Marker Coronary [facility] - [id number] Implanted:Qty: 2 on 11/10/2015 by Jorge Colón MD at [place] [facility] [place] N/A: Heart [employer] [facility] / / [id number] Valve Heart Aortic Epic 25mm - [id number] - [id number] Implanted:Qty: 1 on 11/10/2015 by Jorge Colón MD at [place] [facility] [place] N/A: Heart [facility] L[facility]NY : CARDIOVASCULAR 03/05/2019 [id number] 5-00 / [id number] 1 / Sut Steel 6 M654g - [id number] Implanted:Qty: 4 on 11/10/2015 by Jorge Colón MD at [place] [facility] [place] N/A: Chest JNJ : [employer] M654G / / Lens Intraoc 16.5 - [id number] - [id number] Implanted:Qty: 1 on 08/22/2020 by Pola Lozano MD at OR [facility] Right: Eye [employer]US[employer] LOMB 02/09/2025 [id number] / [id number] / [id number] Lens Intraoc 16.0 - [id number] - [id number] Implanted:Qty: 1 on 09/05/2020 by Pola Lozano MD at OR [facility] Left: Eye BAUSCH & LOMB 02/09/2025 [id number] 0 / [id number] / [id number] Clip Quick 2.8mm 230cm - [id number] Implanted:Qty: 1 on 04/23/2021 by Dallas Askew MD at ENDOSCOPY [facility] Colon [employer] 12/11/2023 HX-202UR .A / / 13K Cath Thermodilution 6fr - [id number] Implanted:Qty: 1 on 04/09/2024 by Jose Cruz Hill DO at CARDIAC LABS [facility] [place] [employer] [id number] 10/27/2025 [id number] / / [id number] Stent Xience Skypoint 3.25x15 - [id number] Implanted:Qty: 1 on 04/09/2024 by Jose Cruz Hill DO at CARDIAC LABS [facility] [place] [employer] : VASCULAR DEVICES 01/04/2027 [id number] / / [id number] documented as of this encounter Advance Directives [...] Power of Attor baldev? No Care Teams Crew Leader/Control Room Operator Relationship Specialty Start Date End Date Chelle Vasquez DO [address] [place] [address] PCP - General Family Medicine 03/30/24 documented as of this encounter
--- OUTSIDE RECORDS SUMMARY | 2024-12-08 08:21 | External Medical Summary | Summary of Care ---
Author Name Unknown Organization [facility] Address [address] [place] [place] [place] [address] Phone [phone] Care Team Providers Care Tenoner Operator Name Role Phone Chelle Vasquez DO Primary Care Provider [phone] Reason for Visit * Reason Onset Date Comments Test Results 07/21/2024 Encounter Details Date Type Department Care Team (Late st Contact Info) Description 07/21/2024 Telephone Family Practice [address], [place] [address] [place] [address] Chelle Vasquez DO 293 [place] [address] Test Results Allergies Active Allergy Reactions Criticality [...] prox RCA 80% stenosis with placement of 3.57d58tp Xience Skypoint WEST, post-dilated with 3.5mm NC Balloon reducing stenosis to 0% with JAMES 3 flow Essential (primary) hypertension 12/08/2023 Hyperlipidemia 12/08/2023 Atherosclerosis of [place] co ronary artery without angina pectoris 12/08/2023 [...] Office Visit Dermatology [place] [facility] [place] [address] Juanito Browning MD [address] [place] [address] [place] [address] 09/14/2024 10:20 AM EST Office Visit Pulmonary Medicine, [facility] 132 [facility] [place] [address] Marino Rodriguez MD [address] [place] [address] 09/17/2024 2:20 PM EST Office Visit Family Practice [address] [place] [address] 293 [place] [address] Chelle Vasquez, DO 293 [place] [address] 11/03/2024 8:00 AM EST Hospital Encounter ENDO [facility], Endoscopy Room O[facility] [address] [facility] [place] [phone] Dallas Askew MD 132 [facility] [place] [address] 11/03/2024 8:00 AM EST - 11/03/2024 9:00 AM EST Surgery ENDO [facility], [facility] [address] [facility] [place] [phone] Dallas Askew MD 132 [facility] [place] [address] COLONOSCOPY FLEXIBLE PROXIMAL DIAGNOSTIC 11/18/2024 11:00 AM EST Office Visit Dermatology [facility] [address] [facility] [place] [address] Gladys Srivastava MD [address] [facility] [place] [address] 02/17/2025 11:30 AM EDT Office Visit Cardiology, [facility] [place] [address] Uriel Warren O, DO [facility] [place] [address] 02/17/2025 2:30 PM EDT Office Visit Hematology/Oncology [place] [address] [facility] [place] [address] Leonarda Trevino CRNP [address] [facility] [place] [address] Scheduled Orders Name Type Priority Associated Diagnoses [...] this encounter Medical Devices Implanted Type Area Check Totaler Device Identifier Shelf Expiration Date Model / Serial / Lot Marker Coronary [facility] - [id number] Implanted:Qty: 2 on 11/10/2015 by Jorge Colón MD at OR [facility] [place] N/A: Heart [employer] [facility] / / [id number] Valve Heart Aortic Epic 25mm - [id number] - [id number] Implanted:Qty: 1 on 11/10/2015 by Jorge Colón MD at OR [facility] [place] N/A: Heart ST LENNY : CARDIOVASCULAR 03/05/2019 [id number] 5-00 / [id number] 1 / Sut Steel 6 M654g - [id number] Implanted:Qty: 4 on 11/10/2015 by Jorge Colón MD at OR [facility] [place] N/A: Chest JNJ : [employer] M654G / / Lens Intraoc 16.5 - [id number] - [id number] Implanted:Qty: 1 on 08/22/2020 by Pola Lozano MD at [facility] Right: Eye BAUSCH & LOMB 02/09/2025 [id number] 5 / [id number] 39 / [id number] Lens Intraoc 16.0 - [id number] - [id number] Implanted:Qty: 1 on 09/05/2020 by Pola Lozano MD at OR [facility] Left: Eye BAUSCH & LOMB 02/09/2025 [id number] 0 / [id number] 35 / [id number] Clip Quick 2.8mm 230cm - [id number] Implanted:Qty: 1 on 04/23/2021 by Dallas Askew MD at [facility] Colon [employer] 12/11/2023 HX-202UR .A / / 13K Cath Thermodilution 6fr - [id number] Implanted:Qty: 1 on 04/09/2024 by Jose Cruz Hill DO at CARDIAC LABS [facility] [employer] [id number] 10/27/2025 [id number] / / [id number] Stent Xience Skypoint 3.25x15 - [id number] Implanted:Qty: 1 on 04/09/2024 by Jose Cruz Hill DO at CARDIAC LABS [facility] [employer] : VASCULAR DEVICES 01/04/2027 [id number] / / [id number] documented as of this encounter Visit Diagnoses [...] Power of Attor baldev? No Care Teams Tenoner Operator Relationship Specialty Start Date End Date Chelle Vasquez DO 293 [place] [address] PCP - General Family Medicine 03/30/24 documented as of this encounter
--- OUTSIDE RECORDS SUMMARY | 2024-12-08 08:22 | External Medical Summary | Summary of Care ---
Author Name Unknown Organization [facility] Address [address] [place] [address] Phone [phone] Care Team Providers Care Warper Fixer Name Role Phone Chelle Vasquez DO Primary Care Provider [phone] Reason for Visit * Reason Comments Acute Encounter Details Date Type Department Care Team (Latest Contact Info) Description 07/05/2024 4:20 PM EDT Office Visit Family Practice [address] [facility] [place] [address] [place] [address] Chelle Vasquez DO [address] [place] [address] Acute cough*; Wheeze; Hyperlipidemia, unspecified hyperlipidemia type; Hodgkin lymphoma, unspecified Hodgkin lymphoma type, unspecified body region (HCC) Allergies Active Allergy Reactions Criticality Noted Date Comments Allopurinol Rash 04/17/2020 Pollen 04/22/2012 Seasonal allergies Molds & Smuts 07/01/2022 documented as of this encounter (statuses as of 07/06/2024) Medications Medication Sig Dispensed Refills Start Date [...] and 1 Tablet before bedtime. 68 Tablet 12/23/2023 Active Additional Information Patient taking differently:3.125 [...] Capsule by mouth at bedtime. 90 Capsule 05/31/2024 Active Ezetimibe 10 MG Oral Tablet [...] for 2 days 30 Tablet 07/05/2024 Active Hospital, Clinic, or Other Facility Administered Medication Ordered Dose Route Frequency Start Date End Date Status Albuterol Sulfate (Proventil) (2.5 MG/3ML) 0.083% inhalation solution 2.5 mgIndications:Hodgkin lymphoma, unspecified Hodgkin lymphoma type, unspecified body region (HCC) 2.5 mg NEBULIZER PRN 04/06/2024 Active Albuterol Sulfate (Proventil) (2.5 MG/3ML) 0.083% inhalation solution 2.5 mgIndications:Acute cough,Wheeze 2.5 mg NEBULIZER ONCE 07/05/2024 07/05/2024 Ended documented as of this encounter (statuses as of 07/06/2024) Active Problems Problem Noted Date Diagnosed Date Calculus of gallbladder with out cholecystitis without obstruction 04/22/2024 Angina at rest 04/09/2024 S/P drug eluting coronary stent placement 2023 Overview: S/p successful PCI to prox RCA 80% stenosis with placement of [id number] Xience Skypoint WEST, post-dilated with 3.5mm NC Balloon reducing stenosis to 0% with JAMES 3 flow Essential (primary) hypertension 12/08/2023 Hyperlipidemia 12/08/2023 Atherosclerosis of [place] co ronary artery without angina pectoris 12/08/2023 [...] as of this encounter (statuses as of 07/06/2024) Resolved Problems Problem Noted Date Diagnosed Date [...] as of this encounter (statuses as of 07/06/2024) Immunizations Name Administration Dates Next Due COVID-19 [...] Sign Reading Time Taken Comments Blood Pressure 134/80 07/05/2024 4:28 PM EDT Pulse 97 07/05/2024 4:29 PM EDT Temperature 35.7 C (96.2 F) 07/05/2024 4:28 PM ED T Respiratory Rate 16 07/05/2024 4:28 PM EDT Oxygen Saturation 99% 07/05/2024 4:29 PM EDT Inhaled Oxygen Concentration - - Weight 98.6 kg (217 lb 6.4 oz) 07/05/2024 4:28 P M EDT Height 170.2 cm (5' 7") 07/05/2024 4:28 PM EDT Body Mass Index 34.05 07/05/2024 4:28 PM EDT documented in this [...] as of this encounter Progress Notes * Valerie Vargas LPN - 07/05/2024 4:46 PM EDT Nebulizer per order. * Chelle Vasquez DO - 07/05/2024 4:34 PM EDT SUBJECTIVE: Chief Complaint Patient presents with Acute HPI: Michael Hughes is a 69 year old male who presents today with complaints of wheezing. He notes that it is a bit less now than it was all day. He has been using his inhaler a lot more. It started about 10 days ago. He said he spent the week visiting a family member at a hospital for 4 days. He notes that he was very wheezy by the time that he got home. He thought he was retaining fluid at first. He took increased dose of furosemide with minimal relief. He notes that he used his inhaler every4 hours or so yesterday. He is using oxygen at night time. He states that he will start to cough and have a bronchial spasm. He notes no fevers or runny nose. He did not feel like he had gotten sick back when this started. PHM: Patient Active Problem List Diagnosis Actinic keratosis Hodgkin lymphoma (HCC) Aortic stenosis S/P AVR (aortic valve replacement) History of nonmelanoma skin cancer MGUS (monoclonal gammopathy of unknown significance) History of therapeutic radiation Essential (primary) hypertension Hyperlipidemia Atherosclerosis of [place] coronary artery without angina pectoris Angina at rest ([facility]) S/P drug eluting coronary stent placement Calculus of gallbladder without cholecystitis without obstruction Current Outpatient Medications Medication Sig Dispense Refill [...] mouth daily. Only taking at bedtime) 68 [id number] Probenecid 500 MG Oral Tablet (Benemid) Take [...] mouth in the morning. 90 Tablet 3 Current Facility-Administered Medications Medication Dose Route Frequency Provider Last Rate Last Admin Albuterol Sulfate (Proventil) (2.5 MG/3ML) 0.083% inhalation solution 2.5 mg 2.5 mg Nebulizer PRN 2.5 mg at 04/06/24 1223 Past Medical History: Diagnosis Date Actinic keratosis [...] performed by Wagner Hernandez MD at ENDOSCOPY [facility] COLONOSCOPY, DIAGNOSTIC (RECTUM) 04/23/2021 adenomatous & hyperplastic polyps, diverticulosis, repeat 6-12 mo / COLONOSCOPY FLEXIBLE PROXIMAL DIAGNOSTIC performed by Dallas Askew MD at ENDOSCOPY [facility] COLONOSCOPY, DIAGNOSTIC (RECTUM) 10/22/2022 benign adenomatous & serrated adenomatous polyps, diverticulosis, repeat 6 mo / COLONOSCOPY FLEXIBLE PROXIMAL DIAGNOSTIC performed by Dallas Askew MD at ENDOSCOPY [facility] COLONOSCOPY, DIAGNOSTIC (RECTUM) 04/08/2023 hemorrhoids/diverticulosis/biopsies show adenomatous and hyperplastic polyps/recall 6 months/COLONOSCOPY FLEXIBLE PROXIMAL DIAGNOSTIC performed by Dallas Askew MD at ENDOSCOPY [facility] COLONOSCOPY, DIAGNOSTIC (RECTUM) 10/21/2023 diverticulosis/hemorrhoids/multiple polyps/biopsies show adenomatous and hyperplastic polyps/recall6 months/COLONOSCOPY FLEXIBLE PROXIMAL DIAGNOSTIC performed by Dallas Askew MD at ENDOSCOPY [facility] CORONARY ANGIOGRAPHY W/RIGHT+LEFT CATH N/A 04/09/2024 CORONARY ANGIOGRAPHY W/RIGHT+LEFT CATH performed by Jose Cruz Hill DO at [facility] CORONARY ARTERIES BYPASS, TWO 11/10/2015 CORONARY ARTERY BYPASS GRAFT WITH 2 VEIN GRAFTS performed by Jorge Colón MD at OR [facility] ENDO,VIDEO ASSIST HARVEST KAROLINE 11/10/2015 ENDOSCOPY VIDEO ASSISTED HARVEST VEIN performed by Jorge Colón MD at OR [facility] REMOVE CATARACT, INSERT LENS PROSTH Right 08/22/2020 RIGHT EXTRACAPSULAR CATARACT REMOVAL WITH INTRAOCULAR LENS performed by Pola Lozano MD at OR [facility] REMOVE CATARACT, INSERT LENS PROSTH Left 09/05/2020 LEFT EXTRACAPSULAR CATARACT REMOVAL WITH INTRAOCULAR LENS performed by Pola Lozano MD at [facility] REPLACEMENT AORTIC VALVE, BYPASS WITH PROSTHETIC VALVE 11/10/2015 REPLACEMENT AORTIC VALVE performed by Jorge Colón MD at OR [facility] Review of patient's allergies indicates: Allergen Reactions [...] color change, pallor and rash. OBJECTIVE: BP 134/80 | Pulse 97 | Temp 35.7 C (96.2 F) | Resp 16 | Ht 1.702 m (5' 7") | Wt 98.6 kg (217 lb6.4 oz) | SpO2 99% | BMI 34.05 kg/m | BSA 2.16 m PHYSICAL EXAM: Physical Exam Constitutional: General: [...] oriented to person, place, and time. ASSESSMENT/PLAN: (R05.1) Acute cough (primary encounter diagnosis) (R06.2) Wheeze Plan: Albuterol Sulfate (Proventil) (2.5 MG/3ML) 0.083% inhalation solution 2.5 mg, NEBULIZER TREATMENTS, predniSONE 10 MG Oral Tablet (Deltasone) Pt with acute bronchospasm. Had previously been controlled. Nebulizer did open up well today. Will start prednisone taper. He will call if he thinks he needs a nebulizer machine. Nurse f/u call on Friday. Follow-up: as scheduled Total time today including reviewing chart before the visit, pertinent labs, imaging reports, face to face time, and documentation time was 34 minutes. Chelle Vasquez DO documented in this encounter Nursing Notes * Valerie Vargas LPN - 07/05/2024 4:27 PM EDT Patient presents today with uri symptoms, started 06/25. Symptoms started with sob, wheezing documented in this encounter Miscellaneous Notes * Addendum Note - Valerie Vargas LPN - 07/06/2024 4:37 PM EDTAddended by: VALERIE VARGAS on: 07/06/2024 04:37 PM Modules accepted: Orders documented in this encounter Plan of Treatment Upcoming Encounters Date Type Department Care Team (Latest Contact Info) Description 07/22/2024 10:00 AM EDT Office Visit Cardiology, [facility] [address] [place] [address] Uriel Warren DO [address] [address] 08/13/2024 2:00 PM EDT Office [facility] [address] Juanito Browning MD [address] [place] [address] 09/17/2024 2:20 PM EST Office Visit Family Practice [address] [place] [address] [address] [place] [address] Chelle Vasquez DO 293 [place] [address] 11/03/2024 8:00 AM EST Hospital Encounter ENDO [facility], Endoscopy Room [facility] 132 [facility] [place] [phone] Dallas Askew MD 132 [facility] [place] [address] 11/03/2024 8:00 AM EST - 11/03/2024 9:00 AM EST Surgery ENDO [facility], Endoscopy Room [facility] 132 [facility] [place] [phone] Dallas Askew [facility] [address] COLONOSCOPY FLEXIBLE PROXIMAL DIAGNOSTIC 11/18/2024 11:00 AM EST Office Visit Dermatology [facility] 200 [facility] [place] [address] Gladys Srivastava MD 200 [facility] [place] [address] 02/17/2025 2:30 PM EDT Office Visit Hematology/Oncology [facility] [address] [facility] [place] [phone] Leonarda Trevino CRNP [address] [place] [address] [place] [address] Scheduled Orders Name Type Priority Associated Diagnoses Orde r Schedule NEBULIZER TREATMENTS Procedures Routine Acute cough Wheeze Ordered: 07/05/2024 Scheduled Procedures Name Priority Associated Diagnoses Date/Ti me COLONOSCOPY FLEXIBLE PROXIMAL DIAGNOSTIC History of colon polyps Family history of colonic polyps 11/03/2024 8:00 AM EST Health Maintenance Due Date Last Done Comments Cologuard 1999 Fecal Occult Blood Test 1999 Sigmoidoscopy 1999 Adult Wellness Visit 02/02/2020 COVID-19 Vaccine ( season) 2024 07/10/2023, 08/23/2022, 02/08/2022, Additional history exists Postponed from 06/13/2024 (Patient Declined After Education) Hepatitis C Screening 07/06/2024 Postpo angie from 02/02/1972 (Patient Declined After Education) Depression Screening 10/02/2024 10/02/2023 HOME BP CUFF [...] Completed 06/17/2024, 07/25/2023, 07/26/2022, Additional history exists HPV (Gardasil) Vaccine Aged Out No lo nger eligible based on patient's age to complete this topic MENINGOCOCCAL (MENACTRA/MENVEO) Aged Out No longer eligible based on patient's age to complete this topic documented as of this encounter Medical Devices Implanted Type Area Administrative Aide Device Identifier Shelf Expiration Date Model / Serial / Lot Marker Coronary Amgm-Sd - [id number] Implanted:Qty: 2 on 11/10/2015 by Jorge Colón MD at OR [facility] N/A: Heart [employer] [facility]-SD / / [id number] Valve Heart Aortic Epic 25mm - [id number] - [id number] Implanted:Qty: 1 on 11/10/2015 by Jorge Colón MD at OR [facility] N/A: Heart [employer] L[employer] : CARDIOVASCULAR 03/05/2019 [id number] 5-00 / [id number] / Sut Steel 6 M654g - [id number] Implanted:Qty: 4 on 11/10/2015 by Jorge Colón MD at OR [facility] N/A: Chest JNJ : [employer] M654G / / Lens Intraoc 16.5 - [id number] - [id number] Implanted:Qty: 1 on 08/22/2020 by Pola Lozano MD at OR [facility] Right: Eye BAUSCH & LOMB 02/09/2025 [id number] / [id number] / [id number] Lens Intraoc 16.0 - [id number] - [id number] Implanted:Qty: 1 on 09/05/2020 by Pola Lozano MD at OR [facility] Left: Eye BAUSCH & LOMB 02/09/2025 [id number] 0 / [id number] / [id number] Clip Quick 2.8mm 230cm - [id number] Implanted:Qty: 1 on 04/23/2021 by Dallas Askew MD at ENDOSCOPY [facility] Colon [employer] 12/11/2023 [id number]-[id number] .[id number] / / 13K Cath Thermodilution 6fr - [id number] Implanted:Qty: 1 on 04/09/2024 by Jose Cruz Hill DO at [facility] [employer] [id number] 10/27/2025 [id number] / / [id number] Stent Xience Skypoint 3.25x15 - [id number] Implanted:Qty: 1 on 04/09/2024 by Jose Cruz Hill DO at [facility] CASTELLANOS LABS : VASCULAR DEVICES 01/04/2027 [id number] / / [id number] documented as of this encounter Visit Diagnoses Diagnosis Acute cough- Primary Wheeze Wheezing Hyperlipidemia, unspecified hyperlipidemia type Hodgkin lymphoma, unspecified Hodgkin lymphoma type, unspecified body region (HCC) History of colon polyps Personal history of colonic polyps Family history of colonic polyps documented in this encounter Administered Medications Inactive Administered Medications - up to 3 most recent administrations Medication Order MAR Action Action Date Dose Rate Site Albuterol Sulfate (Proventil) (2.5 MG/3ML) 0.083% inhalation solution 2.5 mg 2.5 mg, Nebulizer, ONCE, On 07/05/24 at 1715, For 1 dose Given 07/05/2024 4:46 PM EDT 2.5 mg documented in this encounter Advance Directives [...] Power of Attor baldev? No Care Teams Warper Fixer Relationship Specialty Start Date End Date Chelle Vasquez DO [address] [place] [address] PCP - General Family Medicine 03/30/24 documented as of this encounter
--- OUTSIDE RECORDS SUMMARY | 2024-12-08 08:22 | External Medical Summary | Summary of Care ---
Author Name Unknown Organization [facility] Address [address] [place] [address] Phone [phone] Care Team Providers Care Frame Straightener Name Role Phone Chelle Hung DO Primary Care Provider [phone] Reason for Visit * Reason Comments Acute Encounter Details Date Type Department Care Team (Latest Contact Info) Description 07/05/2024 4:20 PM EDT Office Visit Family Practice [facility] [place] [address] [place] [address] Chelle Hung DO [address] [place] [address] Acute cough*; Wheeze; Hyperlipidemia, unspecified hyperlipidemia type; Hodgkin lymphoma, unspecified Hodgkin lymphoma type, unspecified body region (HCC); Acute bronchospasm Allergies Active Allergy Reactions Criticality Noted Date [...] prox RCA 80% stenosis with placement of 3.35x87wl Xience Skypoint WEST, post-dilated with 3.5mm NC Balloon reducing stenosis to 0% with JAMES 3 flow Essential (primary) hypertension 12/08/2023 Hyperlipidemia 12/08/2023 Atherosclerosis of [place] co ronary artery without angina pectoris 12/08/2023 [...] as of this encounter Progress Notes * Chelle Hung DO - 07/06/2024 4:40 PM EDT Pt walked in requesting nebulizer. Given extent of wheezing and bronchospasm, will order. Nursing will work to get approved through [employer]. * Valerie Vargas LPN - 07/05/2024 4:46 PM EDT Nebulizer per order. * Chelle Hung DO - 07/05/2024 4:34 PM EDT SUBJECTIVE: [...] radiation Essential (primary) hypertension Hyperlipidemia Atherosclerosis of [place] coronary artery without angina pectoris Angina at [...] mouth daily. Only taking at bedtime) 68 [id number] Probenecid 500 MG Oral Tablet (Benemid) Take [...] performed by Wagner Hernandez MD at [facility] COLONOSCOPY, DIAGNOSTIC (RECTUM) 04/23/2021 adenomatous & hyperplastic polyps, diverticulosis, repeat 6-12 mo / COLONOSCOPY FLEXIBLE PROXIMAL DIAGNOSTIC performed by Dallas Askew MD at ENDOSCOPY [facility] COLONOSCOPY, DIAGNOSTIC (RECTUM) 10/22/2022 benign adenomatous & serrated adenomatous polyps, diverticulosis, repeat 6 mo / COLONOSCOPY FLEXIBLE PROXIMAL DIAGNOSTIC performed by Dallas Askew MD at [facility] COLONOSCOPY, DIAGNOSTIC (RECTUM) 04/08/2023 hemorrhoids/diverticulosis/biopsies show adenomatous and hyperplastic polyps/recall 6 months/COLONOSCOPY FLEXIBLE PROXIMAL DIAGNOSTIC performed by Dallas Askew MD at ENDOSCOPY [facility] COLONOSCOPY, DIAGNOSTIC (RECTUM) 10/21/2023 diverticulosis/hemorrhoids/multiple polyps/biopsies show adenomatous and hyperplastic polyps/recall6 months/COLONOSCOPY FLEXIBLE PROXIMAL DIAGNOSTIC performed by Dallas Askew MD at ENDOSCOPY [facility] CORONARY ANGIOGRAPHY W/RIGHT+LEFT CATH N/A 04/09/2024 CORONARY ANGIOGRAPHY W/RIGHT+LEFT CATH performed by Jose Cruz Hill DO at [facility] CORONARY ARTERIES BYPASS, TWO 11/10/2015 CORONARY ARTERY BYPASS GRAFT WITH 2 VEIN GRAFTS performed by Jorge Colón MD at OR [facility] ENDO,VIDEO ASSIST HARVEST KAROLINE 11/10/2015 ENDOSCOPY VIDEO ASSISTED HARVEST VEIN performed by Jorge Colón MD at OR [facility] REMOVE CATARACT, INSERT LENS PROSTH Right 08/22/2020 RIGHT EXTRACAPSULAR CATARACT REMOVAL WITH INTRAOCULAR LENS performed by Pola Lozano MD at OR [facility] REMOVE CATARACT, INSERT LENS PROSTH Left 09/05/2020 LEFT EXTRACAPSULAR CATARACT REMOVAL WITH INTRAOCULAR LENS performed by Pola Lozano MD at OR [facility] REPLACEMENT AORTIC VALVE, BYPASS WITH PROSTHETIC VALVE 11/10/2015 REPLACEMENT AORTIC VALVE performed by Jorge Colón MD at OR [facility] Review of patient's allergies indicates: Allergen Reactions [...] and documentation time was 34 minutes. Chelle Hung DO documented in this encounter Nursing Notes * Valerie Vargas LPN - 07/05/2024 4:27 PM EDT Patient presents today with uri symptoms, started 06/25. Symptoms started with sob, wheezing documented in this encounter Miscellaneous Notes * Addendum Note - Chelle Hung DO - 07/06/2024 4:42 PM EDTAddended by: CHELLE HUNG on: 07/06/2024 04:42 PM Modules accepted: Orders * Addendum Note - Valerie Vargas LPN - 07/06/2024 4:37 PM EDTAddended by: VALERIE VARGAS on: 07/06/2024 04:37 PM Modules accepted: Orders documented in this encounter Plan of Treatment Upcoming Encounters Date Type Department Care Team (Latest Contact Info) Description 07/22/2024 10:00 AM EDT Office Visit Cardiology, [facility] [address] [facility] [place] [address] Uriel Warren DO 132 [facility] [place] [address] 08/13/2024 2:00 PM EDT Office Visit Dermatology [facility] 200 [place] [address] Juanito Browning MD 16 [place] [address] 09/17/2024 2:20 PM EST Office Visit Family Practice [address] [place] [address] 293 [place] [address] Chelle Hung DO 293 [facility], [place] [address] 11/03/2024 8:00 AM EST Hospital Encounter ENDO [facility], Endoscopy Room [facility] [address] [facility] [place] [phone] Dallas Askew MD [address] [place] [address] 11/03/2024 8:00 AM EST - 11/03/2024 9:00 AM EST Surgery ENDO [facility], Endoscopy Room [facility] [address] [place] [phone] Dallas Askew MD [address] [place] [address] COLONOSCOPY FLEXIBLE PROXIMAL DIAGNOSTIC 11/18/2024 11:00 AM EST Office Visit Dermatology [facility] [address] [place] [address] [place] [address] Gladys Srivastava MD [address] [place] [address] 02/17/2025 2:30 PM EDT Office Visit Hematology/Oncology [facility] [place] [address] [place] [phone] Leonarda Trevino CRNP [address] [facility] [place] [address] Scheduled Orders Name Type Priority Associated Diagnoses [...] this encounter Medical Devices Implanted Type Area Ui Developer Designer Device Identifier Shelf Expiration Date Model / Serial / Lot Marker Coronary [facility]-Sd - [id number] Implanted:Qty: 2 on 11/10/2015 by Jorge Colón MD at OR [facility] N/A: Heart [employer] AM-SD / / [id number] Valve Heart Aortic Epic 25mm - [id number] - [id number] Implanted:Qty: 1 on 11/10/2015 by Jorge Colón MD at OR [facility] N/A: Heart [facility] LENNY : CARDIOVASCULAR 03/05/2019 [id number] 5-00 / [id number] / Sut Steel 6 M654g - [id number] Implanted:Qty: 4 on 11/10/2015 by Jorge Colón MD at OR [facility] N/A: Chest JNJ : [employer] M654G / / Lens Intraoc 16.5 - [id number] - [id number] Implanted:Qty: 1 on 08/22/2020 by Pola Lozano MD at OR [facility] Right: Eye BAUSCH & LOMB 02/09/2025 [id number] 5 / [id number] / [id number] Lens Intraoc 16.0 - [id number] - [id number] Implanted:Qty: 1 on 09/05/2020 by Pola Lozano MD at OR [facility] Left: Eye BAUSCH & LOMB 02/09/2025 [id number] 0 / [id number] / [id number] Clip Quick 2.8mm 230cm - [id number] Implanted:Qty: 1 on 04/23/2021 by Dallas Askew MD at ENDOSCOPY [facility] Colon [employer] 12/11/2023 [id number]-[id number] .A / / 13K Cath Thermodilution 6fr - [id number] Implanted:Qty: 1 on 04/09/2024 by Jose Cruz Hill DO at [facility] [employer] [id number] 10/27/2025 [id number] / / [id number] Stent Xience Skypoint 3.25x15 - [id number] Implanted:Qty: 1 on 04/09/2024 by Jose Cruz Hill DO at CARDIAC [facility]S [facility] [employer]STELL[facility]OS LABS : VASCULAR DEVICES 01/04/2027 [id number] / / [id number] documented as of this encounter Visit Diagnoses Diagnosis Acute cough- Primary Wheeze Wheezing Hyperlipidemia, unspecified hyperlipidemia type Hodgkin lymphoma, unspecified Hodgkin lymphoma type, unspecified body region (HCC) Acute bronchospasm History of colon polyps Personal history of [...] Power of Attor baldev? No Care Teams Frame Straightener Relationship Specialty Start Date End Date Chelle Hung DO [address] [place] [address] PCP - General Family Medicine 03/30/24 documented as of this encounter
--- OUTSIDE RECORDS SUMMARY | 2024-12-08 08:22 | External Medical Summary | Summary of Care ---
Author Name Unknown Organization [facility] Address [address] [place] [address] Phone [phone] Care Team Providers Care Concrete Swimming Pool Installer Name Role Phone Chelle Hung DO Primary Care Provider Reason for Visit * Reason Comments Acute Encounter Details Date Type Department Care Team (Latest Contact Info) Description 07/05/2024 4:20 PM EDT Office Visit Family Practice [address] [facility] [place] [address] [place] [address] Chelle Hung DO [address] [place] [address] Acute cough*; Wheeze; Hyperlipidemia, unspecified hyperlipidemia type; [...] every 4 hours as needed for Wheezing. 120 mL 5 07/06/2024 Active Hospital, Clinic, or [...] prox RCA 80% stenosis with placement of 3.67f31sf Xience Skypoint WEST, post-dilated with 3.5mm NC Balloon reducing stenosis to 0% with JAMES 3 flow Essential (primary) hypertension 12/08/2023 Hyperlipidemia 12/08/2023 Atherosclerosis of [place] ronary artery without angina pectoris [...] Nursing will work to get approved through [employer]. * Valerie Vargas LPN - 07/05/2024 4:46 [...] radiation Essential (primary) hypertension Hyperlipidemia Atherosclerosis of [place] coronary artery without angina pectoris Angina at [...] mouth daily. Only taking at bedtime) 68 Ficcct87 Probenecid 500 MG Oral Tablet (Benemid) Take [...] performed by Wagner Hernandez MD at ENDOSCOPY [facility] COLONOSCOPY, DIAGNOSTIC (RECTUM) 04/23/2021 adenomatous & hyperplastic polyps, diverticulosis, repeat 6-12 mo / COLONOSCOPY FLEXIBLE PROXIMAL DIAGNOSTIC performed by Dallas Askew MD at ENDOSCOPY [facility] COLONOSCOPY, DIAGNOSTIC (RECTUM) 10/22/2022 benign adenomatous & serrated adenomatous polyps, diverticulosis, repeat 6 mo / COLONOSCOPY FLEXIBLE PROXIMAL DIAGNOSTIC performed by Dallas Askew MD at [facility] COLONOSCOPY, DIAGNOSTIC (RECTUM) 04/08/2023 hemorrhoids/diverticulosis/biopsies show adenomatous and hyperplastic polyps/recall 6 months/COLONOSCOPY FLEXIBLE PROXIMAL DIAGNOSTIC performed by Dallas Askew MD at ENDOSCOPY [facility] COLONOSCOPY, DIAGNOSTIC (RECTUM) 10/21/2023 diverticulosis/hemorrhoids/multiple polyps/biopsies show adenomatous and hyperplastic polyps/recall6 months/COLONOSCOPY FLEXIBLE PROXIMAL DIAGNOSTIC performed by Dallas Askew MD at ENDOSCOPY [facility] CORONARY ANGIOGRAPHY W/RIGHT+LEFT CATH N/A 04/09/2024 CORONARY ANGIOGRAPHY W/RIGHT+LEFT CATH performed by Jose Cruz Hill DO at CARDIAC LABS [facility] CORONARY ARTERIES BYPASS, TWO 11/10/2015 CORONARY ARTERY BYPASS GRAFT WITH 2 VEIN GRAFTS performed by Jorge Colón MD at OR [facility] ENDO,VIDEO ASSIST HARVEST KAROLINE 11/10/2015 ENDOSCOPY VIDEO ASSISTED HARVEST VEIN performed by Jorge Colón MD at OR [facility] REMOVE CATARACT, INSERT LENS PROSTH Right 08/22/2020 RIGHT EXTRACAPSULAR CATARACT REMOVAL WITH INTRAOCULAR LENS performed by Pola Lozano MD at OR [facility] REMOVE CATARACT, INSERT LENS PROSTH Left 09/05/2020 LEFT EXTRACAPSULAR CATARACT REMOVAL WITH INTRAOCULAR LENS performed by Pola Lozano MD at OR [facility] REPLACEMENT AORTIC VALVE, BYPASS WITH PROSTHETIC VALVE 11/10/2015 REPLACEMENT AORTIC VALVE performed by Jorge Colón MD at OR [facility] Review of patient's allergies indicates: Allergen Reactions [...] 07/22/2024 10:00 AM EDT Office Visit Cardiology, [facility] [address] [facility] [place] [address] Uriel Warren DO 132 [facility] [place] [address] 08/13/2024 2:00 PM EDT Office Visit Dermatology [facility] 200 [place] [address] Juanito Browning MD 16 [place] [address] 09/17/2024 2:20 PM EST Office Visit Family Practice [address] [place] [address] [address] [place] [address] Chelle Hung DO 293 [facility], [place] [address] 11/03/2024 8:00 AM EST Hospital Encounter ENDO [facility], Endoscopy Room [facility] [address] [facility] [place] [phone] Dallas Askew MD [address] [place] [address] 11/03/2024 8:00 AM EST - 11/03/2024 9:00 AM EST Surgery ENDO [facility], Endoscopy Room [facility] [address] [place] [phone] Dallas Askew MD [address] [place] [address] COLONOSCOPY FLEXIBLE PROXIMAL DIAGNOSTIC 11/18/2024 11:00 AM EST Office Visit Dermatology [facility] Melodie [place] [address] [place] [address] Gladys Srivastava MD [address] [place] [address] 02/17/2025 2:30 PM EDT Office Visit Hematology/Oncology [facility] [place] [address] [place] [phone] Leonarda Trevino CRNP [address] [facility] [place] [address] Scheduled Orders Name Type Priority Associated Diagnoses [...] this encounter Medical Devices Implanted Type Area Wellness Health Coach Device Identifier Shelf Expiration Date Model / Serial / Lot Marker Coronary [facility] - [id number] Implanted:Qty: 2 on 11/10/2015 by Jorge Colón MD at OR [facility] N/A: Heart [employer] AM-SD / / [id number] Valve Heart Aortic Epic 25mm - [id number] - [id number] Implanted:Qty: 1 on 11/10/2015 by Jorge Colón MD at OR [facility] N/A: Heart ST LENNY : CARDIOVASCULAR 03/05/2019 [id number] 5-00 / [id number] / Sut Steel 6 M654g - [id number] Implanted:Qty: 4 on 11/10/2015 by Jorge Colón MD at OR [facility] N/A: Chest JNJ : [employer] M654G / / Lens Intraoc 16.5 - [id number] - [id number] Implanted:Qty: 1 on 08/22/2020 by Pola Lozano MD at OR [facility] Right: Eye BAUSCH & LOMB 02/09/2025 [id number] 5 / [id number] / [id number] Lens Intraoc 16.0 - [id number] - [id number] Implanted:Qty: 1 on 09/05/2020 by Pola Lozano MD at OR [facility] Left: Eye BAUSCH & LOMB 02/09/2025 [id number] 0 / [id number] / [id number] Clip Quick 2.8mm 230cm - [id number] Implanted:Qty: 1 on 04/23/2021 by Dallas Askew MD at ENDOSCOPY [facility] Colon [employer] 12/11/2023 HX-202UR .A / / 13K Cath Thermodilution 6fr - [id number] Implanted:Qty: 1 on 04/09/2024 by Jose Cruz Hill DO at CARDIAC LABS [facility] [employer] DYLAN [id number] 10/27/2025 [id number] / / [id number] Stent Xience Skypoint 3.25x15 - [id number] Implanted:Qty: 1 on 04/09/2024 by Jose Cruz Hill DO at CARDIAC LABS [facility] CASTELL[employer]OS LABS : VASCULAR DEVICES 01/04/2027 [id number] / / [id number] documented as of this encounter Visit Diagnoses [...] of Attor baldev? No Care Teams Concrete Swimming Pool Installer Relationship Specialty Start Date End Date Chelle Hung DO [address] [place] [address] PCP - General Family Medicine 03/30/24 documented as of this encounter
--- OUTSIDE RECORDS SUMMARY | 2024-12-08 08:22 | External Medical Summary | Summary of Care ---
Author Name Unknown Organization [facility] Address [address] [facility] [place] [address] Phone [phone] Care Team Providers Care Principal Hardware Architect Name Role Phone Chelle Vasquez DO Primary Care Provider Reason for Visit * Reason Onset Date Comments Appointment 04/05/2024 Encounter Details Date Type Department Care Team (Late st Contact Info) Description 04/05/2024 Telephone Pulmonary Medicine Jose Abad [address] [place] [phone] Marino Rodriguez MD [address] [place] [address] Appointment Allergies Active Allergy Reactions Criticality Noted Date Comments Allopurinol Rash 04/17/2020 Pollen 04/22/2012 Seasonal allergies Molds & Smuts 07/01/2022 documented as of this encounter (statuses as of 07/05/2024) Medications Medication Sig Dispensed Refills Start Date [...] before bedtime. 60 Tablet 5 4 Active omeprazole (PRILOSEC) 20 MG CPDR Take 1 Capsule by mouth at bedtime. 6 05/31/20 24 Discontinued atorvaSTATin (LIPITOR) 20 MG Tablet Take 1 Tablet by mouth at bedtime. 7 04/09/20 24 Discontinued torsemide (DEMADEX) 20 MG Tablet Take 0.5 Tablets by mouth in the morning. 04/09/20 24 Discontinued Colchicine 0.6 MG Oral Tablet Take 0.5 Tablets by mouth in the morning. Taking 1/2 of 0.6 mg tablet. 0 04/09/20 24 Discontinued EC-RX Testosterone 10 % Transdermal Cream Place topically on the skin. Apply 1ml daily in am 04/09/20 24 Discontinued Amoxicillin 500 MG Oral Capsule (Amoxil) Take 4 Capsules by mouth as needed (Dental procedures). 04/13/20 24 Discontinued Ventolin HFA 108 (90 Base) MCG/ACT Inhalation Aerosol Solution Inhale 2 Puffs by mouth as needed. 06/29/20 24 Discontinued Ezetimibe 10 MG Oral Tablet (Zetia) Take 1 Tablet by mouth in the morning. 2 06/08/20 24 Discontinued(Ref ill) Aspirin 81 MG Oral Tablet Chewable One tablet every other day 4 04/09/20 24 Discontinued Lisinopril 10 MG Oral Tablet (Prinivil) Take 1 Tablet by mouth in the morning. 30 Tablet 11 4 06/29/20 24 Discontinued(Ref ill) documented as of this encounter (statuses as of 07/05/2024) Active Problems Problem Noted Date Diagnosed Date Calculus of gallbladder with out cholecystitis without obstruction 04/22/2024 Angina at rest 04/09/2024 S/P drug eluting coronary stent placement 2023 Overview: S/p successful PCI to prox RCA 80% stenosis with placement of 3.56a19ig Xience Skypoint WEST, post-dilated with 3.5mm NC Balloon reducing stenosis to 0% with JAMES 3 flow Essential (primary) hypertension 12/08/2023 Hyperlipidemia 12/08/2023 Atherosclerosis of [place] ronary artery without angina pectoris [...] as of this encounter (statuses as of 07/05/2024) Resolved Problems Problem Noted Date Diagnosed Date [...] as of this encounter (statuses as of 07/05/2024) Immunizations Name Administration Dates Next Due COVID-19 [...] Vac cine, Unspecified Formulation 07/26/2022,08/02/2021,10/20/2018,10/12,09/25/2016,08/23/2015,10/23/2013 Seasonal Influenza, Quadriva lent Hd, 65+ Yrs [...] No 09/18/2023 Does the household have a [facility] source of income? (Household - for ages [...] Telephone Encounter - Chrissie Herrera LPN - 04/06/2024 2:44 PM EDT Order was submitted to 04/05/24. * Telephone Encounter - Chrissie Barbour OSA - 04/06/2024 12:32 PM EDT PFT scheduled 04/06/24 at 12 noon. IR scheduled 04/08/24 at 1:[address] Rodriguez placed order for noc ox, please place order in . Thank you. * Telephone Encounter - Li Rodriguez OSA - 04/05/2024 12:44 PM EDT Pt needs scheduled for the following : Lung Volume test Diffusion Capacity test IR chest thracetesis I am unable to schedule please call patient to schedule. Thank You documented in this encounter Plan of Treatment Upcoming Encounters Date Type Department Care Team (Latest Contact Info) Description 07/22/2024 10:00 AM EDT Office Visit Cardiology, [facility] [address] [place] [address] Uriel Warren DO [address] [place] [address] 08/13/2024 2:00 PM EDT Office Visit Dermatology [facility] 200 [facility] [place] [address] Juanito Browning MD [address] [place] [address] 09/17/2024 2:20 PM EST Office Visit Family Practice [address] [place] [address] 293 [place] [address] Chelle Vasquez DO 293 [place] [address] 11/03/2024 8:00 AM EST Hospital Encounter ENDO [facility], Endoscopy Room [facility] 132 [facility] [place] [phone] Dallas [facility]kew [facility] 132 [facility] [address] 11/03/2024 8:00 AM EST - 11/03/2024 9:00 AM EST Surgery ENDO [facility], Endoscopy Room [facility] 132 [facility] [place] [phone] Dallas Askew MD 132 [facility] [place] [address] COLONOSCOPY FLEXIBLE PROXIMAL DIAGNOSTIC 11/18/2024 11:00 AM EST Office Visit Dermatology [facility] [place] 200 [facility] [place] [address] Gladys Srivastava MD 200 [facility] [place] [address] 02/17/2025 2:30 PM EDT Office Visit Hematology/Oncology [facility] [place] [address] [facility] [place] [phone] Leonarda Trevino CRNP 400 [facility] [place] [phone] Scheduled Procedures Name Priority Associated Diagnoses Date/Ti [...] this encounter Medical Devices Implanted Type Area Reel Fed Printer Device Identifier Shelf Expiration Date Model / Serial / Lot Marker Coronary [facility] - [id number] Implanted:Qty: 2 on 11/10/2015 by Jorge Colón MD at OR [facility] N/A: Heart [employer] AM-SD / / [id number] Valve Heart Aortic Epic 25mm - [id number] - [id number] Implanted:Qty: 1 on 11/10/2015 by Jorge Colón MD at OR [facility] N/A: Heart ST LENNY : CARDIOVASCULAR 03/05/2019 [id number] 5-00 / [id number] 1 / Sut Steel 6 M654g - [id number] Implanted:Qty: 4 on 11/10/2015 by Jorge Colón MD at OR [facility] N/A: Chest JNJ : [employer] M654G / / Lens Intraoc 16.5 - [id number] - [id number] Implanted:Qty: 1 on 08/22/2020 by Pola Lozano MD at OR [facility] Right: Eye BAUSCH & LOMB 02/09/2025 [id number] 5 / [id number] 39 / [id number] Lens Intraoc 16.0 - [id number] - [id number] Implanted:Qty: 1 on 09/05/2020 by Pola Lozano MD at OR [facility] Left: Eye BAUSCH & LOMB 02/09/2025 [id number] 0 / [id number] / [id number] Clip Quick 2.8mm 230cm - [id number] Implanted:Qty: 1 on 04/23/2021 by Dallas Askew MD at ENDOSCOPY [facility] Colon [employer] 12/11/2023 HX-202UR .A / / 13K Cath Thermodilution 6fr - [id number] Implanted:Qty: 1 on 04/09/2024 by Jose Cruz Hill DO at CARDIAC LABS [facility] [employer] DYLAN [id number] 10/27/2025 [id number] / / [id number] Stent Xience Skypoint 3.25x15 - [id number] Implanted:Qty: 1 on 04/09/2024 by Jose Cruz Hill DO at CARDIAC LABS [facility] CASTELLNAOS LABS : VASCULAR DEVICES 01/04/2027 [id number] / / [id number] documented as of this encounter Additional Health Concerns Infection Onset Date Last Indicated Resolved Time Respiratory Rule-Out 06/08/2024 06/08/2024 024 10:38 PM EDT documented as of this encounter Advance Directives [...] of Attor baldev? No Care Teams Principal Hardware Architect Relationship Specialty Start Date End Date Chelle Vasquez DO [address] [facility] [place] [address] PCP - General Family Medicine 03/30/24 documented as of this encounter
--- OUTSIDE RECORDS SUMMARY | 2024-12-08 08:22 | External Medical Summary | Summary of Care ---
Author Name Unknown Organization [facility] Address [address] [place] [address] Phone [phone] Care Team Providers Care Manager Trust Name Role Phone Chelle Vasquez DO Primary Care Provider Reason for Visit * Reason Onset Date Comments Abnormal Genetic Testing 07/08/2024 pathoge antonio MITF variant Encounter Details Date Type Department Care Team (Late st Contact Info) Description 07/08/2024 Telephone Genetics HemOnc, [facility] [address] [facility] [place] [address] Elana Guallpa, [place] [address] [address] Abnormal Genetic Testing (pathogenic MITF ... Allergies [...] prox RCA 80% stenosis with placement of 3.31b75br Xience Skypoint WEST, post-dilated with 3.5mm NC Balloon reducing stenosis to 0% with JAMES 3 flow Essential (primary) hypertension 12/08/2023 Hyperlipidemia 12/08/2023 Atherosclerosis of [place] co ronary artery without angina pectoris 12/08/2023 [...] No 09/18/2023 Does the household have a [facility] source of income? 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 Test Ordered: Multi-Cancer Panel and Expanded Colorectal Cancer Panel at [facility] (79 genes) Genes Included: AIP, ALK, APC, AUNDREA, AXIN2, BAP1, BARD1, BLM, BMPR1A, BRCA1, BRCA2, BRIP1, CDC73, CDH1, CDK4, CDKN1B, CDKN2A (p14ARF), CDKN2A (s17MPD6s), CHEK2, CTNNA1, DICER1, EGFR, EPCAM, FH, FLCN, GREM1, HOXB13, KIT, LTZR1, MAX, MBD4, MEN1, MET, MITF, MLH1, MSH2, MSH3, MSH6, MUTYH, NF1, NF2, NTHL1, PALB2, PDGFRA, PMS2, POLD1, POLE, POT1, WWIVT0X, PTCH1, PTEN, RAD51C, RAD51D, RB1, RET, SDHA, SDHAF2, SDHB, SDHC, SDHD, SMAD4, SMARCA4, SMARCB1, SMARCE1, STK11, SUFU, YQGD667, TP53, TSC1, TSC2, VHL+ BUB1, BUB1B, CEP57, FOCAD, GALNT12, MLH3, RNF43, RPS20, TRIP13 Variant of uncertain significance (VUS) identified: PALB2, c.1042C>A (p.Skp106Cek); ClinVarID: [id number] Conflicting ClinVar classification: VUS x7, LB/B x2 VUS results do not impact medical management at this time. Testing relatives for VUS results is notrecommended. Summary: A pathogenic variant was identified associated with increased risk for Melanoma. MITF Cancer Risks: General Population Risk MITF Risk Melanoma 2.1% 4-10% Renal cell carcinoma <2% May be increased Management: Melanoma Risk: Comprehensive skin examination by a court usher. Michael follows regularly with Dermatology due to his personal history of multiple non-melanoma skin cancers. Continue Derm follow-up as recommended. Per Barbara et al (PMID: [id number]) Monitoring with longitudinal photography and digital dermoscopyis [...] issue date (by 12/04/2024). Elana Guallpa MS, [facility] Licensed, Certified Genetic Counselor Cancer Genetics Risk Assessment Clinic, [facility] 07/08/2024 documented in this encounter Plan of Treatment Upcoming Encounters Date Type Department Care Team (Latest Contact Info) Description 07/22/2024 10:00 AM EDT Office Visit Cardiology, [facility] 132 [facility] [place] [address] Uriel Warren, DO 132 [facility] [place] [address] 08/13/2024 2:00 PM EDT Office Visit [facility]ermatology [facility] [address] Juanito Browning MD 16 [place] [address] 09/17/2024 2:20 PM EST Office Visit Family Practice [address] [place] [address] [facility] [address] Chelle Vasquez DO 293 [facility], [place] [address] 11/03/2024 8:00 AM EST Hospital Encounter ENDO [facility], Endoscopy Room [facility] [address] [place] [phone] Dallas Askew MD [address] [place] [address] 11/03/2024 8:00 AM EST - 11/03/2024 9:00 AM EST Surgery ENDO [facility], Endoscopy Room [facility] [address] [place] [phone] Dallas Askew MD [address] [place] [address] COLONOSCOPY FLEXIBLE PROXIMAL DIAGNOSTIC 11/18/2024 11:00 AM EST Office Visit Dermatology [facility] 200 [facility] [place] [address] Gladys Srivastava MD 200 [facility] [place] [address] 02/17/2025 2:30 PM EDT Office Visit Hematology/Oncology [facility] 200 [facility] [place] [phone] Leonarda Trevino, [place] 400 [facility] [place] [phone] Scheduled Procedures Name Priority Associated Diagnoses Date/Ti [...] this encounter Medical Devices Implanted Type Area Slime Plant Operator Helper Device Identifier Shelf Expiration Date Model / Serial / Lot Marker Coronary [facility] - [id number] Implanted:Qty: 2 on 11/10/2015 by Jorge Colón MD at [place] [facility] N/A: Heart [employer]ESSEE BI[employer] [facility] / / [id number] Valve Heart Aortic Epic 25mm - [id number] - [id number] Implanted:Qty: 1 on 11/10/2015 by Jorge Colón MD at OR [facility] N/A: Heart ST LENNY : CARDIOVASCULAR 03/05/2019 [id number] 5-00 / [id number] 1 / Sut Steel 6 M654g - [id number] Implanted:Qty: 4 on 11/10/2015 by Jorge Colón MD at OR [facility] N/A: Chest JNJ : [employer] M654G / / Lens Intraoc 16.5 - [id number] - [id number] Implanted:Qty: 1 on 08/22/2020 by Pola Lozano MD at OR [facility] Right: Eye BAUSCH & LOMB 02/09/2025 [id number] 5 / [id number] 39 / [id number] Lens Intraoc 16.0 - [id number] - [id number] Implanted:Qty: 1 on 09/05/2020 by Pola Lozano MD at OR [facility] Left: Eye BAUSCH & LOMB 02/09/2025 [id number] 0 / [id number] / [id number] Clip Quick 2.8mm 230cm - [id number] Implanted:Qty: 1 on 04/23/2021 by Dallas Askew MD at ENDOSCOPY [facility] Colon [employer] 12/11/2023 HX-202UR .A / / 13K Cath Thermodilution 6fr - [id number] Implanted:Qty: 1 on 04/09/2024 by Jose Cruz Hill DO at [facility]ARDIAC [facility] [employer] [id number] 10/27/2025 [id number] / / [id number] Stent Xience Skypoint 3.25x15 - [id number] Implanted:Qty: 1 on 04/09/2024 by Jose Cruz Hill DO at CARDIAC LABS [facility] [employer]STELLANOS LABS : VASCULAR DEVICES 01/04/2027 [id number] / / [id number] documented as of this encounter Advance Directives [...] Power of Attor baldev? No Care Teams Manager Trust Relationship Specialty Start Date End Date Chelle Vasquez DO [address] [place] [address] PCP - General Family Medicine 03/30/24 documented as of this encounter
--- OUTSIDE RECORDS SUMMARY | 2024-12-08 08:22 | External Medical Summary | Summary of Care ---
Author Name Unknown Organization [facility] Address [address] [place] [address] Phone [phone] Care Team Providers Care Bay Stocker Name Role Phone Chelle Hung DO Primary Care Provider Reason for Visit * Reason Comments Acute Encounter Details Date Type Department Care Team (Latest Contact Info) Description 07/05/2024 4:20 PM EDT Office Visit Family Practice [address] [facility] [place] [address] [place] [address] Chelle Hung DO [address] [place] [address] Acute cough*; Wheeze; Hyperlipidemia, unspecified hyperlipidemia type; [...] prox RCA 80% stenosis with placement of 3.02p68dl Xience Skypoint WEST, post-dilated with 3.5mm NC Balloon reducing stenosis to 0% with JAMES 3 flow Essential (primary) hypertension 12/08/2023 Hyperlipidemia 12/08/2023 Atherosclerosis of [place] co ronary artery without angina pectoris [...] Progress Notes * Valerie Vargas LPN - 07/06/2024 4:56 PM EDT [employer] order completed. * Chelle Hung DO - 07/06/2024 4:40 PM EDT Pt walked in requesting nebulizer. Given extent of wheezing and bronchospasm, will order. Nursing will work to get approved through [employer]. * Valerie Vargas LPN - 07/05/2024 4:46 [...] radiation Essential (primary) hypertension Hyperlipidemia Atherosclerosis of [place] coronary artery without angina pectoris Angina at [...] mouth daily. Only taking at bedtime) 68 [id number] Probenecid 500 MG Oral Tablet (Benemid) Take [...] performed by Wagner Hernandez MD at ENDOSCOPY [facility] COLONOSCOPY, DIAGNOSTIC (RECTUM) 04/23/2021 adenomatous & hyperplastic polyps, diverticulosis, repeat 6-12 mo / COLONOSCOPY FLEXIBLE PROXIMAL DIAGNOSTIC performed by Dallas Askew MD at ENDOSCOPY [facility] COLONOSCOPY, DIAGNOSTIC (RECTUM) 10/22/2022 benign adenomatous & serrated adenomatous polyps, diverticulosis, repeat 6 mo / COLONOSCOPY FLEXIBLE PROXIMAL DIAGNOSTIC performed by Dallas Askew MD at ENDOSCOPY [facility] COLONOSCOPY, DIAGNOSTIC (RECTUM) 04/08/2023 hemorrhoids/diverticulosis/biopsies show adenomatous and hyperplastic polyps/recall 6 months/COLONOSCOPY FLEXIBLE PROXIMAL DIAGNOSTIC performed by Dallas Askew MD at ENDOSCOPY [facility] COLONOSCOPY, DIAGNOSTIC (RECTUM) 10/21/2023 diverticulosis/hemorrhoids/multiple polyps/biopsies show adenomatous and hyperplastic polyps/recall6 months/COLONOSCOPY FLEXIBLE PROXIMAL DIAGNOSTIC performed by Dallas Askew MD at ENDOSCOPY [facility] CORONARY ANGIOGRAPHY W/RIGHT+LEFT CATH N/A 04/09/2024 CORONARY ANGIOGRAPHY W/RIGHT+LEFT CATH performed by Jose Cruz Hill DO at [facility] CORONARY ARTERIES BYPASS, TWO 11/10/2015 CORONARY ARTERY BYPASS GRAFT WITH 2 VEIN GRAFTS performed by Jorge Colón MD at OR [facility] ENDO,VIDEO ASSIST HARVEST KAROLINE 11/10/2015 ENDOSCOPY VIDEO ASSISTED HARVEST VEIN performed by Jorge Colón MD at OR [facility] REMOVE CATARACT, INSERT LENS PROSTH Right 08/22/2020 RIGHT EXTRACAPSULAR CATARACT REMOVAL WITH INTRAOCULAR LENS performed by Pola Lozano MD at OR [facility] REMOVE CATARACT, INSERT LENS PROSTH Left 09/05/2020 LEFT EXTRACAPSULAR CATARACT REMOVAL WITH INTRAOCULAR LENS performed by Pola Lozano MD at OR [facility] REPLACEMENT AORTIC VALVE, BYPASS WITH PROSTHETIC VALVE 11/10/2015 REPLACEMENT AORTIC VALVE performed by Jorge Colón MD at OR [facility] Review of patient's allergies indicates: Allergen Reactions [...] AM EDT Office Visit Cardiology, [facility] [address] [facility] [place] [address] Uriel Warren DO 132 [facility] [place] [address] 08/13/2024 2:00 PM EDT Office Visit Dermatology [facility] 200 [place] [address] Juanito Browning MD 16 [place] [address] 09/17/2024 2:20 PM EST Office Visit Family Practice [address] [place] [address] 293 [place] [address] Chelle Hung DO 293 [place] [address] 11/03/2024 8:00 AM EST Hospital Encounter ENDO [facility], Endoscopy Room [facility] [address] [place] [phone] Dallas Askew MD [address] [place] [address] 11/03/2024 8:00 AM EST - 11/03/2024 9:00 AM EST Surgery ENDO [facility], Endoscopy Room [facility] [address] [place] [phone] Dallas Askew MD [address] [place] [address] COLONOSCOPY FLEXIBLE PROXIMAL DIAGNOSTIC 11/18/2024 11:00 AM EST Office Visit Dermatology [facility] [address] [facility] [place] [address] Gladys Srivastava MD [address] [facility] [place] [address] 02/17/2025 2:30 PM EDT Office Visit Hematology/Oncology [facility] [address] [facility] [place] [phone] Leonarda Trevino CRNP [address] [place] [address] Scheduled Orders Name Type Priority Associated Diagnoses [...] this encounter Medical Devices Implanted Type Area Stator Winder Device Identifier Shelf Expiration Date Model / Serial / Lot Marker Coronary Am-Sd - [id number] Implanted:Qty: 2 on 11/10/2015 by Jorge Colón MD at OR [facility] N/A: Heart [employer] AM-SD / / [id number] Valve Heart Aortic Epic 25mm - [id number] - [id number] Implanted:Qty: 1 on 11/10/2015 by Jorge Colón MD at OR [facility] N/A: Heart ST LENNY : CARDIOVASCULAR 03/05/2019 [id number] 5-00 / [id number] / Sut Steel 6 M654g - [id number] Implanted:Qty: 4 on 11/10/2015 by Jorge Colón MD at OR [facility] N/A: Chest JNJ : [employer] M654G / / Lens Intraoc 16.5 - [id number] - [id number] Implanted:Qty: 1 on 08/22/2020 by Pola Lozano MD at OR [facility] Right: Eye BAUSCH & LOMB 02/09/2025 [id number] 5 / [id number] / [id number] Lens Intraoc 16.0 - [id number] - [id number] Implanted:Qty: 1 on 09/05/2020 by Pola Lozano MD at OR [facility] Left: Eye BAUSCH & LOMB 02/09/2025 [id number] 0 / [id number] / [id number] Clip Quick 2.8mm 230cm - [id number] Implanted:Qty: 1 on 04/23/2021 by Dallas Askew MD at ENDOSCOPY [facility] Colon [employer] 12/11/2023 HX-202UR .A / / 13K Cath Thermodilution 6fr - [id number] Implanted:Qty: 1 on 04/09/2024 by Jose Cruz Hill DO at [facility] [employer] D[employer]AN [id number] 10/27/2025 [id number] / / [id number] Stent Xience Skypoint 3.25x15 - [id number] Implanted:Qty: 1 on 04/09/2024 by Jose Cruz iHll DO at [facility] [employer] LABS : VASCULAR DEVICES 01/04/2027 [id number] / / [id number] documented as of this encounter Visit Diagnoses [...] 2.5 mg 2.5 mg, Nebulizer, ONCE, On Fri07/05/24 at 1715, For 1 dose Given 07/05/2024 [...] Power of Attor baldev? No Care Teams Bay Stocker Relationship Specialty Start Date End Date Chelle Hung DO 293 [place] [address] PCP - General Family Medicine 03/30/24 documented as of this encounter
--- OUTSIDE RECORDS SUMMARY | 2024-12-08 08:22 | External Medical Summary | Summary of Care ---
Author Name Unknown Organization [facility] Address [address] [place] [facility] [place] [address] Phone [phone] Care Team Providers Care Summer Counselor Name Role Phone Chelle Vasquez DO Primary Care Provider Reason for Visit * Reason Onset Date Comments Advice 07/07/202407/07 Encounter Details Date Type Department Care Team (Late st Contact Info) Description 07/07/2024 Telephone Family Practice 65 [facility], [place] [address] [place] [phone] Chelle Vasquez DO [address] [place] [address] Advice (07/07) Allergies Active Allergy Reactions Criticality Noted Date [...] prox RCA 80% stenosis with placement of 3.26e11kf Xience Skypoint WEST, post-dilated with 3.5mm NC Balloon reducing stenosis to 0% with JAMES 3 flow Essential (primary) hypertension 12/08/2023 Hyperlipidemia 12/08/2023 Atherosclerosis of [place] co ronary artery without angina pectoris 12/08/2023 [...] Miscellaneous Notes * Telephone Encounter - Caryl Fleming OSA - 07/08/2024 1:46 PM EDT Department will need to schedule * Telephone Encounter - Valerie Vargas LPN - 07/08/2024 1:37 PM EDT Patient is aware and will comply--will keep dermatology appt. He also he feels well and has used the nebulizer. Please call and reschedule PET scan for in two weeks. Thank you * Telephone Encounter - Valerie Vargas LPN - 07/07/2024 3:28 PM EDT Called, left message for patient to return call. Thank you * Telephone Encounter - Chelle Vasquez DO - 07/07/2024 1:46 PM EDT Please update status of nebulizer through [employer]. Last notification was a DME in [facility]. How is he feeling? It looks like the panel he had for oncology shows a gene mutation for malignant melanoma. Keep apptwith dermatology. I see he cancelled his PET. He was slightly more anemic on labs. Oncology wanted this test to see if they needed to do anything differently before February. Please ask he reschedule. documented in this encounter Plan of Treatment Upcoming Encounters Date Type Department Care Team (Latest Contact Info) Description 07/19/2024 1:45 PM EDT Imaging Radiology [facility] 132 [facility] [place] [address] 07/22/2024 10:00 AM EDT Office Visit Cardiology, [facility] 132 [facility] [place] [address] Uriel Warren DO 132 [facility] [place] [address] 08/13/2024 2:00 PM EDT Office Visit Dermatology [facility] [address] [place], [place] [address] Juanito Browning MD 16 [place] [address] 09/17/2024 2:20 PM EST Office Visit Family Practice 65 [facility] [place] 293 [facility] [place] [address] Chelle Vasquez DO 293 [place] [address] 11/03/2024 8:00 AM EST Hospital Encounter [facility], Endoscopy Room [facility] [place] [phone] Dallas Askew MD 132 [facility] [place] [address] 11/03/2024 8:00 AM EST - 11/03/2024 9:00 AM EST Surgery [facility]O [facility], Endoscopy Room [facility] 132 [facility] [place] [phone] Dallas As[facility]w [facility] 132 [facility] [address] COLONOSCOPY FLEXIBLE PROXIMAL DIAGNOSTIC 11/18/2024 11:00 AM EST Office Visit Dermatology [facility] [place] [address] [place] [address] Gladys Srivastava MD [address] [place] [address] 02/17/2025 2:30 PM EDT Office Visit Hematology/Oncology [facility] [address] [place] [phone] Leonarda Trevino CRNP [address] [place], [place] [address] [address] Scheduled Procedures Name Priority Associated Diagnoses [...] this encounter Medical Devices Implanted Type Area Information Technology Analyst Device Identifier Shelf Expiration Date Model / Serial / Lot Marker Coronary Am-Sd - [id number] Implanted:Qty: 2 on 11/10/2015 by Jorge Colón [place] [facility] [place]/A: Heart [employer] AM-SD / / [id number] Valve Heart Aortic Epic 25mm - [id number] - [id number] Implanted:Qty: 1 on 11/10/2015 by Jorge Colón MD [place] [facility] N/A: Heart ST LENNY : CARDIOVASCULAR 03/05/2019 DEM234-9 5-00 / [id number] 1 / Sut Steel 6 M654g - [id number] Implanted:Qty: 4 on 11/10/2015 by Jorge Colón MD [place] [facility] N/A: Chest JNJ : [employer] M654G / / Lens Intraoc 16.5 - [id number] - [id number] Implanted:Qty: 1 on 08/22/2020 by Pola Lozano MD at OR [facility] Right: Eye BAUSCH & LOMB 02/09/2025 [id number] 5 / [id number] 39 / [id number] Lens Intraoc 16.0 - [id number] - [id number] Implanted:Qty: 1 on 09/05/2020 by Pola Lozano MD at OR [facility] Left: Eye BAUSCH & LOMB 02/09/2025 [id number] 0 / [id number] 35 / [id number] Clip Quick 2.8mm 230cm - [id number] Implanted:Qty: 1 on 04/23/2021 by Dallas Askew MD at ENDOSCOPY [facility] Colon [employer] 12/11/2023 HX-202UR .A / / 13K Cath Thermodilution 6fr - [id number] Implanted:Qty: 1 on 04/09/2024 by Jose Cruz Hill DO [place] [facility] [employer] [id number] 10/27/2025 [id number] / / [id number] Stent Xience Skypoint 3.25x15 - [id number] Implanted:Qty: 1 on 04/09/2024 by Jose Cruz Hill DO at [facility] [employer] LABS : VASCULAR DEVICES 01/04/2027 [id number] / / [id number] documented as of this encounter Advance Directives [...] Power of Attor baldev? No Care Teams Summer Counselor Relationship Specialty Start Date End Date Chelle Vasquez DO [address] [place] [address] PCP - General Family Medicine 03/30/24 documented as of this encounter
--- OUTSIDE RECORDS SUMMARY | 2024-12-08 08:22 | External Medical Summary | Summary of Care ---
Author Name Unknown Organization [facility] Address [address] [place] [address] Phone [phone] Care Team Providers Care Checker Stocker Name Role Phone Chelle Vasquez DO Primary Care Provider Reason for Visit * Reason Onset Date Comments Abnormal Genetic Testing 07/08/2024 pathoge antonio MITF variant Encounter Details Date Type Department Care Team (Late st Contact Info) Description 07/08/2024 Telephone Genetics [facility]c, [facility] [address] [facility] [address] Elana Guallpa, [place] [address] [address] Abnormal Genetic Testing (pathogenic MITF ... Allergies [...] prox RCA 80% stenosis with placement of 3.32r81hj Xience Skypoint WEST, post-dilated with 3.5mm NC Balloon reducing stenosis to 0% with JAMES 3 flow Essential (primary) hypertension 12/08/2023 Hyperlipidemia 12/08/2023 Atherosclerosis of [place] co ronary artery without angina pectoris 12/08/2023 [...] No 09/18/2023 Does the household have a [facility] source of income? (Household - [...] Result 07/07/2024: POSITIVE Gene: MITF Variant: c.952G>A ([id number]), pathogenic, heterozygous. 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 Test Ordered: Multi-Cancer Panel and Expanded Colorectal Cancer Panel at [facility] (79 genes) Genes Included: AIP, ALK, APC, AUNDREA, AXIN2, BAP1, BARD1, BLM, BMPR1A, BRCA1, BRCA2, BRIP1, CDC73, CDH1, CDK4, CDKN1B, CDKN2A (p14ARF), CDKN2A (t44UXS6p), CHEK2, CTNNA1, DICER1, EGFR, EPCAM, FH, FLCN, GREM1, HOXB13, KIT, LTZR1, MAX, MBD4, MEN1, MET, MITF, MLH1, MSH2, MSH3, MSH6, MUTYH, NF1, NF2, NTHL1, PALB2, PDGFRA, PMS2, POLD1, POLE, POT1, AALJI6Z, PTCH1, PTEN, RAD51C, RAD51D, RB1, RET, SDHA, SDHAF2, SDHB, SDHC, SDHD, SMAD4, SMARCA4, SMARCB1, SMARCE1, STK11, SUFU, FGDX402, TP53, TSC1, TSC2, VHL+ BUB1, BUB1B, CEP57, FOCAD, GALNT12, MLH3, RNF43, RPS20, TRIP13 Variant of uncertain significance (VUS) identified: PALB2, c.1042C>A (p.Uzj787Huh); ClinVarID: [id number] Conflicting ClinVar classification: VUS x7, LB/B x2 VUS results do not impact medical management at this time. Testing relatives for VUS results is notrecommended. Summary: A pathogenic variant was identified associated with increased risk for Melanoma. MITF Cancer Risks: General Population Risk MITF Risk Melanoma 2.1% 4-10% Renal cell carcinoma <2% May be increased Management: Melanoma Risk: Comprehensive skin examination by a vice president of product marketing. Michael follows regularly with Dermatology due to his personal history of multiple non-melanoma skin cancers. Continue Derm follow-up as recommended. Per Barbara et al (PMID: [id number]) Monitoring with longitudinal photography and digital dermoscopyis [...] issue date (by 12/04/2024). Elana Guallpa MS, [facility] [place] Licensed, Certified Genetic Counselor Cancer Genetics Risk Assessment Clinic, [facility] 07/08/2024 documented in this encounter Plan of Treatment Upcoming Encounters Date Type Department Care Team (Latest Contact Info) Description 07/22/2024 10:00 AM EDT Office Visit Cardiology, [facility] 132 [facility] [place] [address] Uriel Warren, DO 132 [facility] [place] [address] 08/13/2024 2:00 PM EDT Office Visit [facility]ermatology [facility] [address] Juanito Browning MD 16 [place] [address] 09/17/2024 2:20 PM EST Office Visit Family Practice [address] [place] [address] [facility] [address] Chelle Vasquez DO 293 [facility], [place] [address] 11/03/2024 8:00 AM EST Hospital Encounter ENDO [facility], Endoscopy Room [facility] [address] [place] [phone] Dallas Askew MD [address] [place] [address] 11/03/2024 8:00 AM EST - 11/03/2024 9:00 AM EST Surgery ENDO [facility], Endoscopy Room [facility] [address] [place] [phone] Dallas Askew MD [address] [place] [address] COLONOSCOPY FLEXIBLE PROXIMAL DIAGNOSTIC 11/18/2024 11:00 AM EST Office Visit Dermatology [facility] 200 [facility] [place] [address] Gladys Srivastava MD 200 [facility] [place] [address] 02/17/2025 2:30 PM EDT Office Visit Hematology/Oncology [facility] 200 [facility] [place] [phone] Leonarda Trevino, [place] 400 [facility] [place] [phone] Scheduled Procedures Name Priority Associated Diagnoses Date/Ti [...] encounter Medical Devices Implanted Type Area Slip Feeder Device Identifier Shelf Expiration Date Model / Serial / Lot Marker Coronary [facility] - [id number] Implanted:Qty: 2 on 11/10/2015 by Jorge Colón MD [place] [facility] N/A: Heart [employer] [facility] / / [id number] Valve Heart Aortic Epic 25mm - [id number] - [id number] Implanted:Qty: 1 on 11/10/2015 by Jorge Colón MD at [place] [facility] N/A: Heart ST LENNY : CARDIOVASCULAR 03/05/2019 [id number] 5-00 / [id number] 1 / Sut Steel 6 M654g - [id number] Implanted:Qty: 4 on 11/10/2015 by Jorge Colón MD at [place] [facility] N/A: Chest JNJ : [employer] M654G / / Lens Intraoc 16.5 - [id number] - [id number] Implanted:Qty: 1 on 08/22/2020 by Pola Lozano MD at OR [facility] Right: Eye BAUSCH & LOMB 02/09/2025 [id number] 5 / [id number] 39 / [id number] Lens Intraoc 16.0 - [id number] - [id number] Implanted:Qty: 1 on 09/05/2020 by Pola Lozano MD at OR [facility] Left: Eye BAUSCH & LOMB 02/09/2025 [id number] 0 / [id number] 35 / [id number] Clip Quick 2.8mm 230cm - [id number] Implanted:Qty: 1 on 04/23/2021 by Dallas Askew MD at ENDOSCOPY [facility] Colon [employer] 12/11/2023 HX-202UR .A / / 13K Cath Thermodilution 6fr - [id number] Implanted:Qty: 1 on 04/09/2024 by Jose Cruz Hill DO at [facility] [employer] [id number] 10/27/2025 [id number] / / [id number] Stent Xience Skypoint 3.25x15 - [id number] Implanted:Qty: 1 on 04/09/2024 by Jose Cruz Hill DO at [facility] [employer] LABS : VASCULAR DEVICES 01/04/2027 [id number] / / [id number] documented as of this encounter Advance Directives [...] Power of Attor baldev? No Care Teams Checker Stocker Relationship Specialty Start Date End Date Chelle Vasquez DO [address] [place] [address] PCP - General Family Medicine 03/30/24 documented as of this encounter
--- OUTSIDE RECORDS SUMMARY | 2024-12-08 08:22 | External Medical Summary | Summary of Care ---
Author Name Unknown Organization [facility] Address [address] [facility] [place] [address] Phone [phone] Care Team Providers Care Wildlife Ecologist Name Role Phone Chelle Vasquez DO Primary Care Provider Encounter Details Date Type Department Care Team (Late st Contact Info) Description 07/06/2024 4:15 AM EDT Nurse Only Family Practice [address] [phone] College, Nurse [facility] Prac [address] [address] Arrived Allergies Active Allergy Reactions Criticality Noted Date [...] 10, 2024. 90 Tablet 3 04/10/2024 Active Atorvastatin Calcium 80 MG Oral [...] prox RCA 80% stenosis with placement of 3.75w91iw Xience Skypoint WEST, post-dilated with 3.5mm NC Balloon reducing stenosis to 0% with JAMES 3 flow Essential (primary) hypertension 12/08/2023 Hyperlipidemia 12/08/2023 Atherosclerosis of [place] co ronary artery without angina pectoris 12/08/2023 [...] Notes * Valerie Vargas LPN - 07/06/2024 4:38 PM EDT Please see addended note on yesterdays visit with Dr Vasquez. Thank you documented in this encounter Plan of Treatment Upcoming Encounters Date Type Department Care Team (Latest Contact Info) Description 07/22/2024 10:00 AM EDT Office Visit Cardiology, [facility] [address] [address] Uriel Warren, 132 [place] [address] 08/13/2024 2:00 PM EDT Office Visit Dermatology [facility] 200 [facility] [place] [address] Juanito Browning MD 16 [facility] [place] [address] 09/17/2024 2:20 PM EST Office Visit Family Practice [address] [place] 293 [facility] [place] [address] Chelle Vasquez DO 293 [place] [address] 11/03/2024 8:00 AM EST Hospital Encounter ENDO OSS, Endoscopy Room [facility] [address] [facility] [place] [phone] Dallas Askew MD [address] [place] [address] 11/03/2024 8:00 AM EST - 11/03/2024 9:00 AM EST Surgery ENDO OSS, Endoscopy Room [facility] [address] [facility] [place] [phone] Dallas Askew MD [address] [place] [address] COLONOSCOPY FLEXIBLE PROXIMAL DIAGNOSTIC 11/18/2024 11:00 AM EST Office Visit Dermatology [facility] [address] [facility] [place] [address] Gladys Srivastava MD [address] [facility] [place] [address] 02/17/2025 2:30 PM EDT Office Visit Hematology/Oncology [facility] [address] [facility] [place] [phone] Leonarda Trevino CRNP 400 [facility] [place] [address] Scheduled Procedures Name Priority Associated Diagnoses Date/Ti me COLONOSCOPY FLEXIBLE PROXIMAL DIAGNOSTIC History of colon polyps Family history of colonic polyps 11/03/2024 8:00 AM EST Health Maintenance Due Date Last Done Comments Cologuard 1999 Fecal Occult Blood Test 1999 Sigmoidoscopy 1999 Adult Wellness Visit 02/02/2020 COVID-19 Vaccine (7 - 2024-25 season) 2024 07/10/2023, 08/23/2022, 02/08/2022, Additional history [...] encounter Medical Devices Implanted Type Area Senior Clerk Device Identifier Shelf Expiration Date Model / Serial / Lot Marker Coronary [facility]-Sd - [id number] Implanted:Qty: 2 on 11/10/2015 by Jorge Colón MD at [place] [facility] N/A: Heart [employer] AM-SD / / [id number] Valve Heart Aortic Epic 25mm - [id number] - [id number] Implanted:Qty: 1 on 11/10/2015 by Jorge Colón MD at OR [facility] N/A: Heart ST LENNY : CARDIOVASCULAR 03/05/2019 [id number] 5-00 / [id number] / Sut Steel 6 M654g - [id number] Implanted:Qty: 4 on 11/10/2015 by Jorge Colón MD at OR [facility] N/A: Chest JNJ : [employer] M654G / / Lens Intraoc 16.5 - [id number] - [id number] Implanted:Qty: 1 on 08/22/2020 by Pola Lozano MD at OR [facility] Right: Eye BAUSCH & LOMB 02/09/2025 [id number] 5 / [id number] / [id number] Lens Intraoc 16.0 - [id number] - [id number] Implanted:Qty: 1 on 09/05/2020 by Pola Lozano MD at OR [facility] Left: Eye BAUSCH & LOMB 02/09/2025 [id number] 0 / [id number] / [id number] Clip Quick 2.8mm 230cm - [id number] Implanted:Qty: 1 on 04/23/2021 by Dallas Askew MD at ENDOSCOPY [facility] Colon [employer] 12/11/2023 HX-202UR .A / / 13K Cath Thermodilution 6fr - [id number] Implanted:Qty: 1 on 04/09/2024 by Jose Cruz Hill DO at CARDIAC LABS [facility] [employer] DYLAN [id number] 10/27/2025 [id number] / / [id number] Stent Xience Skypoint 3.25x15 - [id number] Implanted:Qty: 1 on 04/09/2024 by Jose Cruz Hill DO at CARDIAC LABS [facility] [employer]LL[employer] LABS : VASCULAR DEVICES 01/04/2027 [id number] / / [id number] documented as of this encounter Advance Directives [...] Power of Attor baldev? No Care Teams Wildlife Ecologist Relationship Specialty Start Date End Date Chelle Vasquez DO [address] [place] [address] PCP - General Family Medicine 03/30/24 documented as of this encounter
--- OUTSIDE RECORDS SUMMARY | 2024-12-08 08:23 | External Medical Summary | Summary of Care ---
Author Name Unknown Organization [facility] Address [address] [place] [address] Phone [phone] Care Team Providers Care Candle Making Supervisor Name Role Phone Chelle Vasquez DO Primary Care Provider [phone] Reason for Visit * Reason Onset Date Comments Order Request 06/30/2024 lipid Encounter Details Date Type Department Care Team (Late st Contact Info) Description 06/30/2024 Telephone Family Practice 65 [facility] 293 [place] [address] Chelle Vasquez DO 293 [place] [address] Order Request (lipid) Allergies Active Allergy Reactions Criticality Noted Date Comments Allopurinol Rash 04/17/2020 Pollen 04/22/2012 Seasonal allergies Molds & Smuts 07/01/2022 documented as of this encounter (statuses as of 06/30/2024) Medications Medication Sig Dispensed Refills Start Date [...] in the morning. 90 Tablet 06/29/2024 Active Hospital, Clinic, or Other Facility Administered Medication Ordered Dose Route Frequency Start Date End Date Status Albuterol Sulfate (Proventil) (2.5 MG/3ML) 0.083% inhalation solution 2.5 mgIndications:Hodgkin lymphoma, unspecified Hodgkin lymphoma type, unspecified body region (HCC) 2.5 mg NEBULIZER PRN 04/06/2024 Active documented as of this encounter (statuses as of 06/30/2024) Active Problems Problem Noted Date Diagnosed Date Calculus of gallbladder with out cholecystitis without obstruction 04/22/2024 Angina at rest 04/09/2024 S/P drug eluting coronary stent placement 2023 Overview: S/p successful PCI to prox RCA 80% stenosis with placement of 3.30z84jj Xience Skypoint WEST, post-dilated with 3.5mm NC Balloon reducing stenosis to 0% with JAMES 3 flow Essential (primary) hypertension 12/08/2023 Hyperlipidemia 12/08/2023 Atherosclerosis of [place] co ronary artery without angina pectoris 12/08/2023 [...] as of this encounter (statuses as of 06/30/2024) Resolved Problems Problem Noted Date Diagnosed Date [...] as of this encounter (statuses as of 06/30/2024) Immunizations Name Administration Dates Next Due COVID-19 [...] Telephone Encounter - Chelle Vasquez DO - 06/30/2024 8:21 AM EDT Orders signed. * Telephone Encounter - Valerie Vargas LPN - 06/30/2024 8:18 AM EDT Last lipid 07/17/2023 * Telephone Encounter - Caryl Fleming OSA - 06/30/2024 7:58 AM EDT Had labs drawn this AM, wonders if you can add Lipids to panel.. Lab said they could do they have enough blood.. Please place order documented in this encounter Plan of Treatment Upcoming Encounters Date Type Department Care Team (Latest Contact Info) Description 07/06/2024 7:45 AM EDT Imaging Radiology [address] [place] [address] 07/22/2024 10:00 AM EDT Office Visit Cardiology, [facility] [address] [place] [address] Uriel Warren, DO 132 [facility] [place] [address] 08/13/2024 2:00 PM EDT Office Visit Dermatology [facility] [address] [place] [address] Juanito Browning MD 16 [place] [address] 09/17/2024 2:20 PM EST Office Visit Family Practice [address] [place] [address] 293 [place] [address] Chelle Vasquez, DO 293 [place] [address] 11/03/2024 8:00 AM EST Hospital Encounter ENDO OSSC, Endoscopy Room [facility] 132 [facility] [place] [phone] Dallas Askew MD 132 [facility] [place] [address] 11/03/2024 8:00 AM EST - 11/03/2024 9:00 AM EST Surgery ENDO OSSC, Endoscopy Room [facility] 132 [facility] [place] [phone] Dallas Askew MD [address] [place] [address] COLONOSCOPY FLEXIBLE PROXIMAL DIAGNOSTIC 11/18/2024 11:00 AM EST Office Visit Dermatology [facility] [address] [place] [address] Gladys Srivastava MD [address] [place], [place] [address] 02/17/2025 2:30 PM EDT Office Visit Hematology/Oncology [facility] [place] 200 [facility] [place] [address] Leonarda Trevino CRNP [address] [place] [address] Scheduled Orders Name Type Priority Associated Diagnoses Orde r Schedule LIPID PANEL WITH DIRECT LDL IF TG IS HIGH Lab Routine Hyperlipidemia, unspecified hyperlipidemia type Ordered: 06/30/2024 Scheduled Procedures Name Priority Associated Diagnoses Date/Ti [...] BP CUFF VALIDATION YEARLY 03/04/2025 03/04/2024 GFR 04/09/2025 04/09/2024, 03/13, 02/12/2024, Additional history exists Albumin/Creatinine Ratio 02/23/2027 02/24/2024 [...] this encounter Medical Devices Implanted Type Area Reflow Operator Device Identifier Shelf Expiration Date Model / Serial / Lot Marker Coronary [facility] - [id number] Implanted:Qty: 2 on 11/10/2015 by Jorge Colón MD at OR [facility] [place] N/A: Heart [employer] [facility]-SD / / [id number] Valve Heart Aortic Epic 25mm - [id number] - [id number] Implanted:Qty: 1 on 11/10/2015 by Jorge Colón MD at OR [facility] [place] N/A: Heart ST LENNY : CARDIOVASCULAR 03/05/2019 [id number] 5-00 / [id number] 1 / Sut Steel 6 M654g - [id number] Implanted:Qty: 4 on 11/10/2015 by Jorge Colón MD at OR [facility] [place] N/A: Chest JNJ : [employer] M654G / / Lens Intraoc 16.5 - [id number] - [id number] Implanted:Qty: 1 on 08/22/2020 by Pola Lozano MD at OR [facility] Right: Eye BAUSCH & LOMB 02/09/2025 [id number] 5 / [id number] 39 / [id number] Lens Intraoc 16.0 - [id number] - [id number] Implanted:Qty: 1 on 09/05/2020 by Pola Lozano MD at OR [facility] Left: Eye BAUSCH & LOMB 02/09/2025 [id number] 0 / [id number] / [id number] Clip Quick 2.8mm 230cm - [id number] Implanted:Qty: 1 on 04/23/2021 by Dallas Askew MD at ENDOSCOPY [facility] Colon [employer] 12/11/2023 HX-202UR .A / / 13K Cath Thermodilution 6fr - [id number] Implanted:Qty: 1 on 04/09/2024 by Jose Cruz Hill DO at CARDIAC LABS [facility] [place] [employer] [id number] 10/27/2025 [id number] / / [id number] Stent Xience Skypoint 3.25x15 - [id number] Implanted:Qty: 1 on 04/09/2024 by Jose Cruz Hill DO at CARDIAC LABS [facility] [place] [employer] LABS : VASCULAR DEVICES 01/04/2027 [id number] / / [id number] documented as of this encounter Visit Diagnoses Diagnosis Hyperlipidemia, unspecified hyperlipidemia type- Primary History of colon polyps Personal history [...] Power of Attor baldev? No Care Teams Candle Making Supervisor Relationship Specialty Start Date End Date Chelle Vasquez DO 293 [place] [address] PCP - General Family Medicine 03/30/24 documented as of this encounter
--- OUTSIDE RECORDS SUMMARY | 2024-12-08 08:23 | External Medical Summary | Summary of Care ---
Author Name Unknown Organization [facility] Address [address] [facility] [place] [address] Phone [phone] Care Team Providers Care Automobile Rental Representative Name Role Phone Chelle Vasquez DO Primary Care Provider [phone] Reason for Referral * Precert (Within 10 days (routine)) - Pending Review Specialty Diagnoses / Procedures Referred By Katherine johns Referred To Contact Radiology Diagnoses Hodgkin lymphoma, unspecified Hodgkin lymphoma type, unspecified body region (HCC) Night sweats Procedures PET CT SKULL BASE TO MID-THIGH FDG Chelle Vasquez DO [address] [place] [address] Referral ID Status Reason Start Date Expiration Date V isits Requested Visits Authorized [id number] Pending Review 06/22/2024 999 999 Reason for Visit * Reason Onset Date Comments Advice 06/22/2024 Encounter Details Date Type Department Care Team (Late st Contact Info) Description 06/22/2024 Telephone Family Practice 65 [facility] [place] 293 [place] [address] Chelle Vasquez DO [address] [place], [place] [phone] Advice Allergies Active Allergy Reactions Criticality Noted Date Comments Allopurinol Rash 04/17/2020 Pollen 04/22/2012 Seasonal allergies Molds & Smuts 07/01/2022 documented as of this encounter (statuses as of 06/22/2024) Medications Medication Sig Dispensed Refills Start Date End Date Status Fexofenadine HCl 180 MG Oral Tablet Take 1 Tablet by mouth in the morning. Active Vitamin D 50 MCG (2000 UT) Oral Capsule Take 2,000 Units by mouth at bedtime. Active Ventolin HFA 108 (90 Base) MCG/ACT Inhalation Aerosol Solution Inhale 2 Puffs by mouth as needed. Active traMADol HCl 50 MG Oral Tablet [...] Only taking at bedtime, Reported on 02/24/2024 Lisinopril 10 MG Oral Tablet (Prinivil) Take 1 Tablet by mouth in the morning. 30 Tablet 02/20/2024 Active Additional Information Patient taking differently: 5 mgOral Daily(AM), Reported on 04/22/2024 Probenecid 500 MG Oral Tablet (Benemid) Take [...] the morning. 100 Tablet 3 06/08/2024 Active Hospital, Clinic, or Other Facility Administered Medication Ordered Dose Route Frequency Start Date End Date Status Albuterol Sulfate (Proventil) (2.5 MG/3ML) 0.083% inhalation solution 2.5 mgIndications:Hodgkin lymphoma, unspecified Hodgkin lymphoma type, unspecified body region (HCC) 2.5 mg NEBULIZER PRN 04/06/2024 Active documented as of this encounter (statuses as of 06/22/2024) Active Problems Problem Noted Date Diagnosed Date Calculus of gallbladder with out cholecystitis without obstruction 04/22/2024 Angina at rest 04/09/2024 S/P drug eluting coronary stent placement 2023 Overview: S/p successful PCI to prox RCA 80% stenosis with placement of 3.20b88yd Xience Skypoint WEST, post-dilated with 3.5mm NC Balloon reducing stenosis to 0% with JAMES 3 flow Essential (primary) hypertension 12/08/2023 Hyperlipidemia 12/08/2023 Atherosclerosis of [place] co ronary artery without angina pectoris 12/08/2023 [...] as of this encounter (statuses as of 06/22/2024) Resolved Problems Problem Noted Date Diagnosed Date [...] as of this encounter (statuses as of 06/22/2024) Immunizations Name Administration Dates Next Due COVID-19 [...] Telephone Encounter - Caryl Fleming OSA - 06/22/2024 2:14 PM EDT Dept will schedule test * Telephone Encounter - Valerie Vargas LPN - 06/22/2024 2:04 PM EDT aware, please call regarding pet scan. Thank you * Telephone Encounter - Chelle Vasquez DO - 06/22/2024 1:33 PM EDT Please let pt know: I did hear back from oncology. She would like him to have the lab studies as ordered as well as PETscan to be sure we do not see anything on imaging. I have placed an order for this. * Telephone Encounter - Chelle Vasquez DO - 06/22/2024 1:32 PM EDT ----- Message from Leonarda Trevino sent at 06/21/2024 1:02 PM EDT ----- Regarding: RE: Question With his history I think a PET/CT would not be a bad idea. Then pending the labs and scan we can decide if earlier follow up is needed. It doesn't look like he had the lab work done yet? Leonarda ----- Message ----- From: Chelle Vasquez DO Sent: 06/18/2024 11:53 AM EDT To: GILBERTO Celeste Subject: Question Hi Leonarda, Pt notes that he has started to have night sweats again over the last 6 weeks or so. He notes some unintentional weight loss (15lbs at home, about 8 or so on our scales). He reports that this is how his Hodgkins started. I have ordered a CBC and LDH. Any other lab studies/imaging you would recommend? Do you want to see him sooner? Thanks, -Chelle documented in this encounter Plan of Treatment Upcoming Encounters Date Type Department Care Team (Latest Contact Info) Description 07/22/2024 10:00 AM EDT Office Visit Cardiology, [facility] [address] [place] [address] Uriel Warren DO [address] [place] [address] 08/13/2024 2:00 PM EDT Office Visit Dermatology [facility] 200 [place] [place] [address] Juanito Browning MD 16 [place] [address] 09/17/2024 2:20 PM EST Office Visit Family Practice 65 [facility] [place] 293 [place] [address] Chelle Vasquez, 293 [place] [address] 11/03/2024 8:00 AM EST Hospital Encounter ENDO OSSC, Endoscopy Room [facility] [address] [facility] [place] [phone] Dallas Askew MD 132 [facility] [place] [address] 11/03/2024 8:00 AM EST - 11/03/2024 9:00 AM EST Surgery ENDO OSSC, Endoscopy Room [facility] 132 [facility] [place] [phone] Dallas Askew MD 132 [facility] [place] [address] COLONOSCOPY FLEXIBLE PROXIMAL DIAGNOSTIC 11/18/2024 11:00 AM EST Office Visit Dermatology [facility] [place] [address] [place] [address] Gladys Srivastava MD 200 [place] [place] [address] 02/17/2025 2:30 PM EDT Office Visit Hematology/Oncology [facility] [place] 200 [facility] [place] [phone] Leonarda Trevino CRNP 400 [facility] [place] [id number] Scheduled Orders Name Type Priority Associated Diagnoses Orde r Schedule PET CT SKULL BASE TO MID-THIGH FDG Medical Imaging Routine Hodgkin lymphoma, unspecified Hodgkin lymphoma type, unspecified body region (HCC) Night sweats Expected: 06/22/2024, Expires: 07/22/2025 Scheduled Procedures Name Priority Associated [...] this encounter Medical Devices Implanted Type Area Shell Coremaker Device Identifier Shelf Expiration Date Model / Serial / Lot Marker Coronary [facility]-Sd - [id number] Implanted:Qty: 2 on 11/10/2015 by Jorge Colón MD at OR [facility] [place] N/A: Heart [employer]-SD / / [id number] Valve Heart Aortic Epic 25mm - [id number] - [id number] Implanted:Qty: 1 on 11/10/2015 by Jorge Colón MD at OR [facility] N/A: Heart ST LENNY : CARDIOVASCULAR 03/05/2019 [id number] 5-00 / [id number] 1 / Sut Steel 6 M654g - [id number] Implanted:Qty: 4 on 11/10/2015 by Jorge Colón MD at OR [facility] N/A: Chest JNJ : [employer] M654G / / Lens Intraoc 16.5 - [id number] - [id number] Implanted:Qty: 1 on 08/22/2020 by Pola Lozano MD at OR [facility] Right: Eye BAUSCH & LOMB 02/09/2025 [id number] 5 / [id number] / [id number] Lens Intraoc 16.0 - [id number] - [id number] Implanted:Qty: 1 on 09/05/2020 by Pola Lozano MD at OR [facility] Left: Eye BAUSCH & LOMB 02/09/2025 [id number] 0 / [id number] / [id number] Clip Quick 2.8mm 230cm - [id number] Implanted:Qty: 1 on 04/23/2021 by Dallas Askew MD at ENDOSCOPY [facility] Colon [employer] 12/11/2023 HX-202UR .A / / 13K Cath Thermodilution 6fr - [id number] Implanted:Qty: 1 on 04/09/2024 by Jose Cruz Hill DO at CARDIAC LABS [facility] [employer] [id number] 10/27/2025 [id number] / / [id number] Stent Xience Skypoint 3.25x15 - [id number] Implanted:Qty: 1 on 04/09/2024 by Jose Cruz Hill DO at CARDIAC LABS [facility] [employer] LABS : VASCULAR DEVICES 01/04/2027 [id number] 15 / / [id number] documented as of this encounter Visit Diagnoses Diagnosis Hodgkin lymphoma, unspecified Hodgkin lymphoma type, unspecified body region (HCC)- Primary Night sweats Generalized hyperhidrosis History of colon polyps Personal history of [...] Power of Attor baldev? No Care Teams Automobile Rental Representative Relationship Specialty Start Date End Date Chelle Vasquez DO 293 [place] [address] PCP - General Family Medicine 03/30/24 documented as of this encounter
--- OUTSIDE RECORDS SUMMARY | 2024-12-08 08:23 | External Medical Summary ---
Author Name Unknown Address Unknown Organization K0G[facility] [address] - [address] [place] [address] Laboratory Report Ordering Provider Test Date Status ANABELL ROSENBERG 06/30/2024 07:48:10 Final Observation Date Value Abnormality Reference (Units ) Status Nucleated erythrocytes/100 leukocytes [Ratio] in Blood by Automated count 06/30/2024 07:48:10 Final Schistocytes 06/30/2024 07:48:10 Few Abnormal None Seen Final Performing Location [facility] 0 - [address] [place] [address]
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
--- OUTSIDE RECORDS SUMMARY | 2024-12-08 08:23 | External Medical Summary ---
Author Name Unknown Address Unknown Organization [id number] [address] [place] [address] Laboratory Report Ordering Provider Test Date Status ANABELL ROSENBERG 06/30/2024 07:48:10 Final Observation Date Value Abnormality Reference (Units ) Status BUN 06/30/2024 07:48:10 28 Above high normal 6-20 (mg/dL) Final Creatinine 06/30/2024 07:48:10 1.2 0.6-1.2 (mg/dL) Final Glomerular filtration rate/1.73 sq M.predicted [Volume Rate/Area] in Serum, Plasma or Blood by Creatinine-based formula (CKD-EPI) 06/30/2024 07:48:10 64 >=60 (mL/min) Final eGFR is calculated based on the CKD-EPI 2020 equation. Sodium 06/30/2024 07:48:10 137 135-146 (m mol/L) Final Potassium 06/30/2024 07:48:10 4.8 3.5-5.1 (m mol/L) Final Cl 06/30/2024 07:48:10 99 98-107 (mm ol/L) Final CO2 06/30/2024 07:48:10 30 22-32 (mmo l/L) Final Anion gap 06/30/2024 07:48:10 8 7-15 (mmol /L) Final Glucose 06/30/2024 07:48:10 90 70-120 (mg /dL) Final Calcium 06/30/2024 07:48:10 9.5 8.4-10.2 ( mg/dL) Final Performing Location [facility] [place] [address]
--- OUTSIDE RECORDS SUMMARY | 2024-12-08 08:23 | External Medical Summary | Summary of Care ---
Author Name Unknown Organization [facility] Address [address] [place] [facility] [address] Phone [phone] Care Team Providers Care Key Cutter Name Role Phone Chelle Vasquez DO Primary Care Provider [phone] Reason for Visit * Reason Comments Acute Encounter Details Date Type Department Care Team (Late st Contact Info) Description 07/05/2024 4:20 PM EDT Office Visit Family Practice [address] [place] [address] [place] [address] Chelle Vasquez DO [address] [place] [address] Acute cough*; Wheeze Allergies Active Allergy Reactions Criticality Noted Date [...] prox RCA 80% stenosis with placement of 3.65o60bp Xience Skypoint WEST, post-dilated with 3.5mm NC Balloon reducing stenosis to 0% with JAMES 3 flow Essential (primary) hypertension 12/08/2023 Hyperlipidemia 12/08/2023 Atherosclerosis of [place] co ronary artery without angina pectoris 12/08/2023 [...] radiation Essential (primary) hypertension Hyperlipidemia Atherosclerosis of [place] coronary artery without angina pectoris Angina at [...] mouth daily. Only taking at bedtime) 68 [id number] Probenecid 500 MG Oral Tablet (Benemid) Take [...] performed by Wagner Hernandez MD at ENDOSCOPY [facility] COLONOSCOPY, DIAGNOSTIC (RECTUM) 04/23/2021 adenomatous & hyperplastic polyps, diverticulosis, repeat 6-12 mo / COLONOSCOPY FLEXIBLE PROXIMAL DIAGNOSTIC performed by Dallas Askew MD at ENDOSCOPY [facility] COLONOSCOPY, DIAGNOSTIC (RECTUM) 10/22/2022 benign adenomatous & serrated adenomatous polyps, diverticulosis, repeat 6 mo / COLONOSCOPY FLEXIBLE PROXIMAL DIAGNOSTIC performed by Dallas Askew MD at ENDOSCOPY [facility] COLONOSCOPY, DIAGNOSTIC (RECTUM) 04/08/2023 hemorrhoids/diverticulosis/biopsies show adenomatous and hyperplastic polyps/recall 6 months/COLONOSCOPY FLEXIBLE PROXIMAL DIAGNOSTIC performed by Dallas Askew MD at ENDOSCOPY [facility] COLONOSCOPY, DIAGNOSTIC (RECTUM) 10/21/2023 diverticulosis/hemorrhoids/multiple polyps/biopsies show adenomatous and hyperplastic polyps/recall6 months/COLONOSCOPY FLEXIBLE PROXIMAL DIAGNOSTIC performed by Dallas Askew MD at ENDOSCOPY [facility] CORONARY ANGIOGRAPHY W/RIGHT+LEFT CATH N/A 04/09/2024 CORONARY ANGIOGRAPHY W/RIGHT+LEFT CATH performed by Jose Cruz Hill DO at CARDIAC LABS [facility] CORONARY ARTERIES BYPASS, TWO 11/10/2015 CORONARY ARTERY BYPASS GRAFT WITH 2 VEIN GRAFTS performed by Jorge Colón MD at OR [facility] ENDO,VIDEO ASSIST HARVEST KAROLINE 11/10/2015 ENDOSCOPY VIDEO ASSISTED HARVEST VEIN performed by Jorge Colón MD at OR [facility] REMOVE CATARACT, INSERT LENS PROSTH Right 08/22/2020 RIGHT EXTRACAPSULAR CATARACT REMOVAL WITH INTRAOCULAR LENS performed by Pola Lozano MD at [facility] REMOVE CATARACT, INSERT LENS PROSTH Left 09/05/2020 LEFT EXTRACAPSULAR CATARACT REMOVAL WITH INTRAOCULAR LENS performed by Pola Lozano MD at [facility] REPLACEMENT AORTIC VALVE, BYPASS WITH PROSTHETIC VALVE 11/10/2015 REPLACEMENT AORTIC VALVE performed by Jorge Colón MD at OR [facility] Review of patient's allergies indicates: Allergen Reactions [...] with sob, wheezing documented in this encounter Plan of Treatment Upcoming Encounters Date Type Department Care Team (Latest Contact Info) Description 07/22/2024 10:00 AM EDT Office Visit Cardiology, [facility] 132 [facility] [place] [address] Uriel Warren DO 132 [facility] [place] [address] 08/13/2024 2:00 PM EDT Office Visit [facility] [address] Juanito Browning MD 16 [place] [address] 09/17/2024 2:20 PM EST Office Visit Family Practice [address] [place] [address] 293 [facility] [place] [address] Chelle Vasquez DO 293 [facility] [place] [address] 11/03/2024 8:00 AM EST Hospital Encounter ENDO OSS, Endoscopy Room [facility] [address] [place] [phone] Dallas Askew MD [address] [place] [address] 11/03/2024 8:00 AM EST - 11/03/2024 9:00 AM EST Surgery ENDO [facility], Endoscopy Room [facility] [address] [place] [address] Dallas Askew MD [address] [place] [address] COLONOSCOPY FLEXIBLE PROXIMAL DIAGNOSTIC 11/18/2024 11:00 AM EST Office Visit Dermatology [facility] 200 [facility] [place] [address] Gladys Srivastava MD 200 [facility] [place] [address] 02/17/2025 2:30 PM EDT Office Visit Hematology/Oncology [facility] [address] [facility] [place] [phone] Leonarda Trevino CRNP [address] [facility] [place] [phone] Scheduled Orders Name Type Priority Associated Diagnoses [...] this encounter Medical Devices Implanted Type Area Sanitary Aide Device Identifier Shelf Expiration Date Model / Serial / Lot Marker Coronary Am-Sd - [id number] Implanted:Qty: 2 on 11/10/2015 by Jorge Colón MD at OR [facility] N/A: Heart [employer] AM-SD / / [id number] Valve Heart Aortic Epic 25mm - [id number] - [id number] Implanted:Qty: 1 on 11/10/2015 by Jorge Colón MD at OR [facility] N/A: Heart ST LENNY : CARDIOVASCULAR 03/05/2019 [id number] 5-00 / [id number] 1 / Sut Steel 6 M654g - [id number] Implanted:Qty: 4 on 11/10/2015 by Jorge Colón MD at OR [facility] N/A: Chest JNJ : [employer] M654G / / Lens Intraoc 16.5 - [id number] - [id number] Implanted:Qty: 1 on 08/22/2020 by Pola Lozano MD at OR [facility] Right: Eye BAUSCH & LOMB 02/09/2025 [id number] 5 / [id number] / [id number] Lens Intraoc 16.0 - [id number] - [id number] Implanted:Qty: 1 on 09/05/2020 by Pola Lozano MD at OR [facility] Left: Eye BAUSCH & LOMB 02/09/2025 [id number] 0 / [id number] / [id number] Clip Quick 2.8mm 230cm - [id number] Implanted:Qty: 1 on 04/23/2021 by Dallas Askew MD at ENDOSCOPY [facility] Colon [employer] 12/11/2023 HX-202UR .A / / 13K Cath Thermodilution 6fr - [id number] Implanted:Qty: 1 on 04/09/2024 by Jose Cruz Hill DO at CARDIAC LABS [facility] [employer] DYLAN [id number] 10/27/2025 [id number] / / [id number] Stent Xience Skypoint 3.25x15 - [id number] Implanted:Qty: 1 on 04/09/2024 by Jose Cruz Hill DO at CARDIAC LABS [facility] CASTELLANOS LABS : VASCULAR DEVICES 01/04/2027 [id number] / / [id number] documented as of this encounter Visit Diagnoses Diagnosis Acute cough- Primary Wheeze Wheezing History of colon polyps Personal history of [...] Power of Attor baldev? No Care Teams Key Cutter Relationship Specialty Start Date End Date Chelle Vasquez DO 293 [facility] [place] [address] PCP - General Family Medicine 03/30/24 documented as of this encounter
--- OUTSIDE RECORDS SUMMARY | 2024-12-08 08:23 | External Medical Summary ---
Author Name Unknown Address Unknown Organization [id number]:[facility] [place] [address] [place] [address] Laboratory Report Ordering Provider Test Date Status ANABELL ROSENBERG 06/30/2024 07:48:10 Final Observation Date Value Abnormality Reference (Units ) Status Uric Acid 06/30/2024 07:48:10 5.5 3.4-7.0 (m g/dL) Final Performing Location LABORATORY [facility] - [address] [place] [address]
--- OUTSIDE RECORDS SUMMARY | 2024-12-08 08:23 | External Medical Summary | Summary of Care ---
Author Name Unknown Organization [facility] Address [address] [facility] [place] [address] Phone [phone] Care Team Providers Care Petroleum Engineer Name Role Phone Chelle Vasquez DO Primary Care Provider Reason for Visit * Reason Comments Outpatient Testing Encounter Details Date Type Department Care Team (Late st Contact Info) Description 06/30/2024 7:50 AM EDT Laboratory Laboratory, [facility] 132 [facility] [place] [address] [facility] [place] [address] Essential hypertension with goal blood pressure less than 140/90; Gouty arthropathy; Polyposis of colon; History of nonmelanoma skin cancer; Family history of pancreatic cancer; Hodgkin lymphoma, unspecified Hodgkin lymphoma type, unspecified body region (HCC); Encounter for nonprocreative genetic counseling; Night sweats; Low testosterone Allergies Active Allergy Reactions Criticality Noted Date [...] prox RCA 80% stenosis with placement of 3.45h24qo Xience Skypoint WEST, post-dilated with 3.5mm NC Balloon reducing stenosis to 0% with JAMES 3 flow Essential (primary) hypertension 12/08/2023 Hyperlipidemia 12/08/2023 Atherosclerosis of [place] co 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 [place] [address] Uriel Warren O, DO 132 [facility] [place] [address] 08/13/2024 2:00 PM EDT Office Visit Dermatology [facility] 200 [facility] [place] [address] Juanito Browning MD 16 [facility] [address] 09/17/2024 2:20 PM EST Office Visit Family Practice [address] [place] [address] [facility] [address] Chelle Vasquez, DO 293 [facility], [place] [address] 11/03/2024 8:00 AM EST Hospital Encounter ENDO OSSC, Endoscopy Room [facility] [address] [place], [place] [phone] Dallas Askew MD [address] [place] [address] 11/03/2024 8:00 AM EST - 11/03/2024 9:00 AM EST Surgery ENDO [facility], Endoscopy Room [facility] [address] [place] [phone] Dallas Askew MD [address] [place] [address] COLONOSCOPY FLEXIBLE PROXIMAL DIAGNOSTIC 11/18/2024 11:00 AM EST Office Visit Dermatology [facility] 200 [facility] [place] [address] Gladys Srivastava MD 200 [facility] [place] [address] 02/17/2025 2:30 PM EDT Office Visit Hematology/Oncology [facility] 200 [facility] [place] [phone] Leonarda Trevino CRNP [address] [place] [address] [place] [address] Pending Results Name Type Priority Associated Diagnoses Date /Time BASIC METABOLIC PANEL Lab Routine Essential hypertension with goal blood pressure less than 140/90 Gouty arthropathy 06/30/2024 7:48 AM EDT URIC ACID Lab Routine Gouty arthropathy 06/30/2024 7:48 AM EDT MULTI-CANCER PANEL, INVITAE Lab Routine Polyposis of colon History of nonmelanoma skin cancer Family history of pancreatic cancer Hodgkin lymphoma, unspecified Hodgkin lymphoma type, unspecified body region (HCC) Encounter for nonprocreative genetic counseling 06/30/2024 7:48 AM EDT CBC WITH WBC DIFFERENTIAL Lab Routine Hodgkin lymphoma, unspecified Hodgkin lymphoma type, unspecified body region (HCC) Night sweats 06/30/2024 7:48 AM EDT LD Lab Routine Hodgkin lymphoma, unspecified Hodgkin lymphoma type, unspecified body region (HCC) Night sweats 06/30/2024 7:48 AM EDT TESTOSTERONE: TOTAL, FREE AND BIOAVAILABLE Lab Routine Low testosterone 06/30/2024 7:48 AM EDT CBC Lab Routine Hodgkin lymphoma, unspecified Hodgkin lymphoma type, unspecified body region (HCC) Night sweats 06/30/2024 7:48 AM EDT DIFFERENTIAL, AUTOMATED Lab Routine Hodgkin lymphoma, unspecified Hodgkin lymphoma type, unspecified body region (HCC) Night sweats 06/30/2024 7:48 AM EDT Scheduled Procedures Name Priority Associated [...] this encounter Medical Devices Implanted Type Area Dye Colorist Formulator Device Identifier Shelf Expiration Date Model / Serial / Lot Marker Coronary [facility]-Sd - [id number] Implanted:Qty: 2 on 11/10/2015 by Jorge Colón MD at OR [facility] N/A: Heart [employer] [facility]-SD / / [id number] Valve Heart Aortic Epic 25mm - [id number] - [id number] Implanted:Qty: 1 on 11/10/2015 by Jorge Colón MD at OR [facility] N/A: Heart ST LENNY : CARDIOVASCULAR 03/05/2019 [id number] 5-00 / [id number] 1 / Sut Steel 6 M654g - [id number] Implanted:Qty: 4 on 11/10/2015 by Jorge Colón MD at OR [facility] N/A: Chest JNJ : [employer] M654G / / Lens Intraoc 16.5 - [id number] - [id number] Implanted:Qty: 1 on 08/22/2020 by Pola Lozano MD at OR [facility] Right: Eye BAUSCH & LOMB 02/09/2025 [id number] 5 / [id number] 39 / [id number] Lens Intraoc 16.0 - [id number] - [id number] Implanted:Qty: 1 on 09/05/2020 by Pola Lozano MD at OR [facility] Left: Eye BAUSCH & LOMB 02/09/2025 [id number] 0 / [id number] / [id number] Clip Quick 2.8mm 230cm - [id number] Implanted:Qty: 1 on 04/23/2021 by Dallas Askew MD at ENDOSCOPY [facility] Colon [employer] 12/11/2023 HX-202UR .A / / 13K Cath Thermodilution 6fr - [id number] Implanted:Qty: 1 on 04/09/2024 by Jose Cruz Hill, DO at CARDIAC LABS [facility] [employer] [id number] 10/27/2025 [id number] / / [id number] Stent Xience Skypoint 3.25x15 - [id number] Implanted:Qty: 1 on 04/09/2024 by Jose Cruz Hill, DO at CARDIAC LABS [facility] [employer]LL[employer] LABS : VASCULAR DEVICES 01/04/2027 [id number] / / [id number] documented as of this encounter Visit Diagnoses Diagnosis Essential hypertension with goal blood pressure less than 140/90 Gouty arthropathy Gouty arthropathy, unspecified Polyposis of colon Benign neoplasm of colon History of nonmelanoma skin cancer Personal history of other malignant neoplasm of skin Family history of pancreatic cancer Family history of malignant neoplasm of gastrointestinal tract Hodgkin lymphoma, unspecified Hodgkin lymphoma type, unspecified body region (HCC) Encounter for nonprocreative genetic counseling Night sweats Generalized hyperhidrosis Low testosterone Other testicular hypofunction History of colon polyps Personal history of [...] Power of Attor baldev? No Care Teams Petroleum Engineer Relationship Specialty Start Date End Date Chelle Vasquez DO 293 [place] [address] PCP - General Family Medicine 03/30/24 documented as of this encounter
--- OUTSIDE RECORDS SUMMARY | 2024-12-08 08:23 | External Medical Summary ---
Author Name Unknown Address Unknown Organization K0G:LABORATORY [place] [address] - [address] [place] [address] Laboratory Report Ordering Provider Test Date Status ANABELL ROSENBERG 06/30/2024 07:48:10 Final Observation Date Value Abnormality Reference (Units ) Status WBC, Total 06/30/2024 07:48:10 6.82 4.00-10.8 0 (K/uL) Final RBC 06/30/2024 07:48:10 3.68 4.50-5.25 (M/uL) Final Hemoglobin 06/30/2024 07:48:10 11.6 Below low normal 14 .0-16.8 (g/dL) Final HCT 06/30/2024 07:48:10 34.7 Below low normal 40. 0-48.4 (%) Final MCV 06/30/2024 07:48:10 94.3 82.0-99.5 (fL) Final MCH 06/30/2024 07:48:10 31.5 27.0-34.0 (pg) Final MCHC 06/30/2024 07:48:10 33.4 32.0-36.0 (g/dL) Final RDW 06/30/2024 07:48:10 19.5 11.5-15.5 (%) Final Platelets 06/30/2024 07:48:10 330 140-400 (K /uL) Final MPV 06/30/2024 07:48:10 10.4 6.6-11.1 ( fL) Final Performing Location [facility]ORY [facility] [place] [address]
--- OUTSIDE RECORDS SUMMARY | 2024-12-08 08:23 | External Medical Summary | Summary of Care ---
Author Name Unknown Organization [facility] Address [address] [facility] [place] [address] Phone [phone] Care Team Providers Care Welding Teacher Name Role Phone Chelle Vasquez DO Primary Care Provider Reason for Referral * Evaluate & Treat - Unlimited Visits (Within 10 days (routine)) - Authorized Specialty Diagnoses / Procedures Referred By Katherine johns Referred To Contact Pulmonary Diseases / Pulmonary Diagnoses Abnormal chest x-ray Pleural effusion Opacity noted on imaging study Uriel Warren DO [address] [place] [address] Referral ID Status Reason Start Date Expiration Date Visits Requested Visits Authorized [id number] Authorized Specialty Services Required 03/29/[phone] Question Answer Referral Priority Within 10 days (routine) Where should this appointment be scheduled? [facility] Primary Reason for Referral? Other Comments Moderately sized right pleural effusion. Underlying rounded opacity probably chronic rounded atelectasis, with other etiologies not excluded. Reason for Visit * Reason Onset Date Comments Test Results 03/29/2024 Encounter Details Date Type Department Care Team (Late st Contact Info) Description 03/29/2024 Telephone Cardiology, [facility] [address] [place] [address] Uriel Warren DO [address] [place] [address] Test Results Allergies Active Allergy Reactions Criticality Noted Date Comments Allopurinol Rash 04/17/2020 Pollen 04/22/2012 Seasonal allergies Molds & Smuts 07/01/2022 documented as of this encounter (statuses as of 06/28/2024) Medications Medication Sig Dispensed Refills Start Date [...] mouth in the morning. 30 Tablet 11 02/20/2024 Active Additional Information Patient taking differently: 5 mgOral Daily(AM), Reported on 04/22/2024 Probenecid 500 MG Oral Tablet (Benemid) Take 1 Tablet by mouth in the morning and 1 Tablet before bedtime. 60 Tablet 5 03/23/2024 Active documented as of this encounter (statuses as of 06/28/2024) Active Problems Problem Noted Date Diagnosed Date Calculus of gallbladder with out cholecystitis without obstruction 04/22/2024 Angina at rest 04/09/2024 S/P drug eluting coronary stent placement 2023 Overview: S/p successful PCI to prox RCA 80% stenosis with placement of 3.24m86mx Xience Skypoint WEST, post-dilated with 3.5mm NC Balloon reducing stenosis to 0% with JAMES 3 flow Essential (primary) hypertension 12/08/2023 Hyperlipidemia 12/08/2023 Atherosclerosis of [place] co ronary artery without angina pectoris 12/08/2023 [...] as of this encounter (statuses as of 06/28/2024) Resolved Problems Problem Noted Date Diagnosed Date [...] as of this encounter (statuses as of 06/28/2024) Immunizations Name Administration Dates Next Due COVID-19 [...] encounter Miscellaneous Notes * Telephone Encounter - Femi Olivera OSA - 03/29/2024 3:48 PM EDT Called patient back: CT is setup for: 03/31/2024 Status: Andrzej Time: 8:45 AM Length: 15 Visit Type: CT CHEST W WO CONTRAST [98178] Reg Status: Verified Copay: $235.00 Provider: CT1 ANDREWKaren GAMBLE Pulm appt is setup for: 04/05/2024 Status: Andrzej Time: 11:20 AM Length: 40 Visit Type: NEW PULMONARY [05117] Reg Status: Verified * Telephone Encounter - Femi Olivera OSA - 03/29/2024 12:10 PM EDT Called patient, he is travelling, I am to call back after 330 pm * Telephone Encounter - Darci Arambula LPN - 03/29/2024 11:12 AM EDT Sent patient a Telerivet message to make aware. Scheduling please assist. ----- Message from Uriel Warren DO sent at 03/29/2024 11:06 AM EDT ----- CBC demonstrates stable mild anemia and elevated monocytes. Moderate acanthocytes (spur cells) may be associated with chronic anemia ,however, recommend follow up with heme/onc for further evaluation. Stable BMP. Proceed with CT chest and Pulm eval as scheduled. documented in this encounter Plan of Treatment Upcoming Encounters Date Type Department Care Team (Latest Contact Info) Description 07/06/2024 7:45 AM EDT Imaging Radiology [facility] [address] [place] [address] 07/22/2024 10:00 AM EDT Office Visit Cardiology, [address] [place] [address] Uriel Warren, DO 132 [facility] [place] [address] 08/13/2024 2:00 PM EDT Office Visit Dermatology [facility] 200 [facility] [place] [address] Juanito Browning MD 16 [place] [address] 09/17/2024 2:20 PM EST Office Visit Family Practice [address] [place] [address] 293 [facility] [place] [address] Chelle Vasquez, DO 293 [place] [address] 11/03/2024 8:00 AM EST Hospital Encounter ENDO [facility], [facility] [address] Dallas Askew MD 132 [facility] [place] [address] 11/03/2024 8:00 AM EST - 11/03/2024 9:00 AM EST Surgery ENDO [facility], Endoscopy Room [facility] 132 [facility] [place] [phone] Dallas Askew MD [address] [facility] [place] [address] COLONOSCOPY FLEXIBLE PROXIMAL DIAGNOSTIC 11/18/2024 11:00 AM EST Office Visit Dermatology [facility] [address] [place] [address] Gladys Srivastava MD 200 [facility] [place] [address] 02/17/2025 2:30 PM EDT Office Visit Hematology/Oncology [facility] 200 [facility] [place] [address] Leonarda Trevino CRNP [address] [place] [place] [address] Scheduled Procedures Name Priority Associated Diagnoses Date/Ti me COLONOSCOPY FLEXIBLE PROXIMAL DIAGNOSTIC History of colon polyps Family history of colonic polyps 11/03/2024 8:00 AM EST Scheduled Referrals Name Type Priority Associated Diagnoses Orde r Schedule PULMONARY REFERRAL OP Referral Within 10 days (routine) Abnormal chest x-ray Pleural effusion Opacity noted on imaging study Ordered: 03/29/2024 Health Maintenance Due Date Last Done Comments [...] this encounter Medical Devices Implanted Type Area Nut Tapper Device Identifier Shelf Expiration Date Model / Serial / Lot Marker Coronary [facility]-Sd - [id number] Implanted:Qty: 2 on 11/10/2015 by Jorge Colón MD [place] [facility] N/A: Heart [employer] BI[employer] [facility]-SD / / [id number] Valve Heart Aortic Epic 25mm - [id number] - [id number] Implanted:Qty: 1 on 11/10/2015 by Jorge Colón MD at [place] [facility] N/A: Heart ST LENNY : CARDIOVASCULAR 03/05/2019 [id number] 5-00 / [id number] 1 / Sut Steel 6 M654g - [id number] Implanted:Qty: 4 on 11/10/2015 by Jorge Colón MD at [place] [facility] N/A: Chest JNJ : [employer] M654G / / Lens Intraoc 16.5 - [id number] - [id number] Implanted:Qty: 1 on 08/22/2020 by Pola Lozano MD at OR [facility] Right: Eye BAUSCH & LOMB 02/09/2025 [id number] 5 / [id number] 39 / [id number] Lens Intraoc 16.0 - [id number] - [id number] Implanted:Qty: 1 on 09/05/2020 by Pola Lozano MD at OR [facility] Left: Eye BAUSCH & LOMB 02/09/2025 [id number] 0 / [id number] 35 / [id number] Clip Quick 2.8mm 230cm - [id number] Implanted:Qty: 1 on 04/23/2021 by Dallas Askew MD at ENDOSCOPY [facility] Colon [employer] 12/11/2023 HX-202UR .A / / 13K Cath Thermodilution 6fr - [id number] Implanted:Qty: 1 on 04/09/2024 by Jose Cruz Hill DO at CARDIAC LABS [facility] [employer] [id number] 10/27/2025 [id number] / / [id number] Stent Xience Skypoint 3.25x15 - [id number] Implanted:Qty: 1 on 04/09/2024 by Jose Cruz Hill DO at CARDIAC LABS [facility] [employer] LABS : VASCULAR DEVICES 01/04/2027 [id number] / / [id number] documented as of this encounter Visit Diagnoses Diagnosis Abnormal chest x-ray- Primary Other nonspecific abnormal finding of lung field Pleural effusion Unspecified pleural effusion Opacity noted on imaging study Other nonspecific (abnormal) findings on radiological and other examinations of body structure History of colon polyps Personal history of colonic polyps Family history of colonic polyps documented in this encounter Additional Health Concerns Infection Onset [...] Power of Attor baldev? No Care Teams Welding Teacher Relationship Specialty Start Date End Date Chelle Vasquez DO [address] [place] [address] PCP - General Family Medicine 03/30/24 documented as of this encounter
--- OUTSIDE RECORDS SUMMARY | 2024-12-08 08:23 | External Medical Summary ---
Author Name Unknown Address Unknown Organization [id number]:[facility] [address] [place] [address] Laboratory Report Ordering Provider Test Date Status ANABELL ROSENBERG 06/30/2024 07:48:10 Final Observation Date Value Abnormality Reference (Units ) Status SYNC LEUKOCYTES IN BLOOD BY AUTOMATED COUNT 06/30/2024 07:48:10 6.82 4.00-10.80 (K/uL) Final Segs 06/30/2024 07:48:10 54.8 40.0-75.0 (%) Final Lymphs % 06/30/2024 07:48:10 18.8 18.0-42.0 (%) Final Monos 06/30/2024 07:48:10 14.7 Above high normal 1.0-11.0 (%) Final Eosinophils 06/30/2024 07:48:10 11.1 Above high normal 0.0-6.0 (%) Final Basos 06/30/2024 07:48:10 0.6 0.0-2.0 (%) Final Absolute Segs 06/30/2024 07:48:10 3.74 1.80-7.70 (K/uL) Final Lymphs, absolute 06/30/2024 07:48:10 1.28 1.00-4.80 (K/ul) Final Monos, Abs 06/30/2024 07:48:10 1.00 0.00-1.10 (K/uL) Final Eos, Abs 06/30/2024 07:48:10 0.76 Above high normal 0.00-0.70 (K/uL) Final Basos, Abs 06/30/2024 07:48:10 0.04 0.00-0.20 (K/uL) Final Performing Location [facility] [place] [address]
--- OUTSIDE RECORDS SUMMARY | 2024-12-08 08:23 | External Medical Summary ---
Author Name Unknown Address Unknown Organization [id number]:[facility] [place] [address] [facility] [place] [address] Laboratory Report Ordering Provider Test Date Status ANABELL ROSENBERG 06/30/2024 07:48:10 Final Observation Date Value Abnormality Reference (Units ) Status Triglyceride 06/30/2024 07:48:10 67 <=174 ( mg/dL) Final Triglyceride Reference Range s (mg/dL):
<150 Acceptable
150-174 Borderline high
175-499 High
>=500 Very high Cholesterol 06/30/2024 07:48:10 113 <200 (mg /dL) Final Total Cholesterol Reference Ranges (mg/dL):
<200 Desirable
200-239 Borderline high
>=240 High HDL 06/30/2024 07:48:10 40 >39 (mg/dL ) Final HDL Cholesterol Reference Ra nges (mg/dL):
>=60 High (Desirable)
<50 Low (Undesirable) For Females
<40 Low (Undesirable) For Males NON-HDL CHOLESTEROL 06/30/2024 07:48:10 73 <=159 (mg/dL) Final Non-HDL Cholesterol Referenc e Range (mg/dL):
<100 Target level for high risk ASCVD patient
<130 Optimal for general population
130-159 Near optimal for general population
160-189 Borderline High
190-219 High
>=220 Very High LDL, (calculated) 06/30/2024 07:48:10 60 <= 129 (mg/dL) Final LDL Cholesterol Reference Ra nges (mg/dL):
<70 Target level for high risk ASCVD patient
<100 Optimal for general population
100-129 Near optimal for general population
130-159 Borderline high
160-189 High
>=190 Very high Performing Location [facility] [place] [address] [facility] [address]
--- OUTSIDE RECORDS SUMMARY | 2024-12-08 08:23 | External Medical Summary ---
Author Name Unknown Address Unknown Organization [id number]:[facility] [place] [facility] [address] [place] [address] Laboratory Report Ordering Provider Test Date Status GELY ROSENBERGCOMPAASHUTOSH 06/30/2024 07:48:10 Final Observation Date Value Abnormality Reference (Units ) Status Albumin 06/30/2024 07:48:10 3.8 3.8-5.0 (g/dL) Final Sex Hormone Binding Globulin 06/30/2024 07:48:10 58 12-91 (nmol/L) Final Testosterone [Mass/volume] in Serum or Plasma 06/30/2024 07:48:10 113.7 Below low normal 193.0-740.0 (ng/dL) Final Free Testosterone, calculated 06/30/2024 07:48:10 15.0 Below low normal 35.0-130.0 (pg/mL) Final Bioavailable Testosterone, calculated 06/30/2024 07:48:10 31.2 Below low normal 79.0-335.0 (ng/dL) Final Performing Location [facility] [place] [address] [place] [address]
--- OUTSIDE RECORDS SUMMARY | 2024-12-08 08:23 | External Medical Summary ---
Author Name Unknown Address Unknown Organization : Laboratory Report Ordering Provider Test Date Status OFE DUNHAM 06/30/2024 07:48:10 Final Observation Date Value Abnormality Reference (Units ) Status REFERENCE LAB SCANNED REPORT 06/30/2024 07:48:10 RESULT SCAN Final Performing Location
--- OUTSIDE RECORDS SUMMARY | 2024-12-08 08:23 | External Medical Summary ---
Author Name Unknown Address Unknown Organization K01:[facility] - [address] [place] [address] Laboratory Report Ordering Provider Test Date Status ANABELL ROSENBERG 06/30/2024 07:48:10 Final Observation Date Value Abnormality Reference (Units ) Status LDH 06/30/2024 07:48:10 189 <=250 (U/L ) Final Performing Location [facility] - [address] [place] [address]
[2024-12-08] MEDS: ASPIRIN 81 MG ECTAB PO SCH (08:33)
[2024-12-08] MEDS: PROBENECID 500 MG TAB PO SCH (08:33)
[2024-12-08] MEDS: EZETIMIBE 10 MG TAB PO SCH (08:33)
[2024-12-08] MEDS: FEXOFENADINE HCL 180 MG TAB PO SCH (08:33)
[2024-12-08] MEDS: CLOPIDOGREL BISULFATE 75 MG TAB PO SCH (08:34)
[2024-12-08] MEDS: UMECLIDINIUM BROMIDE 62.5MCG/BLISTER 7 PUFFS/INHALER INH SCH (08:35)
--- NOTE | 2024-12-08 09:08 | Cardiology Consultation ---
Date of Consultation December 08, 2024 Assessment & Plan (1) NSTEMI (non-ST elevated myocardial infarction): (2) CAD (coronary artery disease): (3) Second degree AV block, Mobitz type I: (4) S/P CABG (coronary artery bypass graft): (5) S/P aortic valve replacement: Plan Patient with complex history of CAD s/p CABG in 2016 (SVG to LAD, SVG to OM2) and WEST to the RCA in March 2024 with patent bypass grafts at that time, AVR in 2016. Over the last several months patient with recurrent lightheadedness/near syncope/syncope associated with symptoms of crescendo angina. Last night, he had recurrent near syncopal event with associated SOB/chest heaviness. Found to be bradycardic and intermittent 2nd degree AV block Type I with hypotension on arrival. HS troponin elevated at 1100, repeat 900. EKG demonstrating NSR with non specific ST/T wave abnormality in anterolateral leads. He reports worsening anginal symptoms over the last several months, with minimal exertion and resolved with SL nitro. Concerns for RCA disease leading to symptomatic bradycardia and/or AV dissociation. Would recommend repeat cardiac catheterization for further evaluation of his ischemic heart disease. Echo this morning with preserved LVEF, no wall motion abnormalities. Mild renal insufficiency noted on arrival, likely due to up titration of diuretics as an outpatient due to mild HFpEF. Currently appears euvolemic. Hold diuretics. Gentle IV fluids Continue ASA, statin, plavix. Consider IV heparin. Beta miguel angel on hold due to concerns regarding symptomatic bradycardia and 2nd degree AV block. Further recommendations pending evaluation/discussion with Dr. Bernabe Patient was seen and personally examined. Full assessment and plan as outlined by advanced provider as above. Care and management personally discussed and endorsed. Complex 69-year-old male with known coronary artery disease as outlined. Most recent coronary intervention in March 2024 to the proximal right coronary artery for anginal symptoms with substantial improvement in symptom pattern. Now presents with gradual return of exertional symptoms and chest pressure as well as additional short shortness of breath with activity now limiting. In addition he has suffered 3 syncopal events with separate etiologies 1 with orthostatic changes second with choking event and third exertionally symptoms consistent with possible exercise-induced angina. Last evening experienced symptoms of hot flushing with shortness of breath and chest heaviness. Transported via ambulance with observed AV block in ambulance treated with atropine and fluids. EKG on presentation without acute injury pattern troponins however trended high. Currently asymptomatic at rest. Echocardiogram without new wall motion abnormality and with normal bioprosthetic aortic valve function. Discussed in detail with patient. Underlying conduction system disease present but concerning symptoms for crescendo anginal and possible right coronary distribution ischemia as cause. Will require cardiac catheterization. Comp lexity of issue grafts, prior coronary invention requests tertiary facility [facility] [place] as appropriate. Patient accepted pending bed availability. Dr. Ordaz History of Present Illness Reason for Consultation: Recurrent syncope; Bradycardia; Elevated troponin Requesting Physician: [facility] Hospitalist Attending Physician: Dr. Bernabe History of Present Illness Patient is a complex 69 year old male, known to Dr. Warren/[facility], presenting to [facility] with complaints of recurrent near syncope and SOB/chest tightness History includes: 1. Chronic HFpEF, NYHA Class III 2.Coronary artery disease a. Status post CABG x2 (SVG-LAD, SVG-OM2) in 2015 b. CATH (04/09/24) with PCI and WEST x1 to proximal RCA and patent bypass grafts 3. S/P AVR due to severe in 2016 #20 mm [place] prosthesis 4. Postoperative paroxysmal AFIB and junctional bradycardia without recurrence 5. Labile hypertension 5. HLD 6. History of lymphoma and mantle radiation therapy (1970s) Patient was in the [facility] ER in Oct 2024 after a fall due to possible syncope with head injury. CT of the Head was unremarkable. Several days later, patient presented to PCP with complaints of worsening cough/wheeze/SOB/weight gain. He was given one dose IV lasix in his PCP office and torsemide was increased for 3 days with mild improvement in his symptoms. He then presented to Cardiology office with complaints of ongoing dyspnea, particularly with exertion associated with subscapular pain. Intermittently relieved with nitro. He felt initially improved after increasing diuretics, so once again his diuretics were increased to torsemide 40 mg daily. Unfortunately with titrations of diuretics, mild worsening renal function noted, along with lower BP readings at home with dizziness. He presented to PCP office on 12/03 for BP check and BP was high. However, due to dizziness, patient self reduced diuretics back to torsemide 20 mg daily Over the weekend patient was visiting family in [facility]. He was walking across the hotel lobby and felt sudden onset lightheadedness with SOB and fatigue. He fell to the ground and struck his head. He is uncertain if he lost consciousness before or after hitting the ground. He awakened in the ambulance. Work up in [place] was unremarkable. Negative Head CT. He reports cardiac enzymes were mildly elevated but does not recall. It was recommended he be admitted but he left AMA. Last night patient felt a sudden onset "hot flash" associated with sudden onset SOB and chest heaviness. 911 was summoned. Apparently EMS arrived and found patient bradycardic and hypotensive. He was given IV fluids and one dose atropine. EKG demonstrated Sinus rhythm with 2nd degree AV type I AV block - HR in the 50's. On arrival, BP and HR had improved. HS troponin elevated at 1161, repeat 993. EKG demonstrating sinus tachycardia without acute ischemic changes. Patient admits to worsening anginal symptoms over the last few months. Reports increased SOB with activities, worsening fatigue and intermittent back pain with minimal exertion such as climbing a flight of stairs. He often needs to stop and rest. He had taken SL nitro over the last few weeks for his intermittent subscapular back pain and he reports interval improvement in his symptoms with 1 SL nitro. He reports these symptoms are similar to when he received his WEST to the RCA in March 2024. At time of consult, patient resting in bed feeling ok. No recurrent dizziness, lightheadedness, syncope or near syncope. No current symptoms of chest pain/hea viness or dyspnea. Allergies Allergy/AdvReac Type Severity Reaction Status Date / Time mold Allergy Unknown Verified 12/08/24 00:35 pollen extracts Allergy Unknown Verified 12/08/24 00:35 allopurinol AdvReac Itching Verified 12/08/24 00:35 Home Medications Medication Instructions Recorded Confirmed Type fexofenadine 180 mg tablet 180 mg PO QAM 07/05/19 12/08/24 History cholecalciferol (vitamin D3) 25 2,000 unit PO HS 01/06/23 12/08/24 History mcg (1,000 unit) capsule amoxicillin 500 mg capsule 2,000 mg (4 x 500 mg) PO .COMPLEX 06/24/23 12/08/24 Rx #4 caps tramadol 50 mg tablet 50 mg PO Q6H PRN pain #60 tabs 09/22/23 12/08/24 Rx albuterol sulfate 2.5 mg/3 mL 2.5 mg continuous nebulization BID 12/08/24 12/08/24 History (0.083 %) solution for nebulization albuterol sulfate 90 mcg/actuation 2 puff inhalation .Q4-6H PRN 12/08/24 12/08/24 History aerosol inhaler Shortness Of Breath Or Wheezing aspirin 81 mg tablet,delayed 81 mg PO QAM 12/08/24 12/08/24 History release atorvastatin 40 mg tablet 40 mg PO HS 12/08/24 12/08/24 History budesonide 1 mg/2 mL suspension 1 mg inhalation .UD 12/08/24 12/08/24 History for nebulization carvedilol 3.125 mg tablet 3.125 mg PO BID 12/08/24 12/08/24 History clopidogrel 75 mg tablet 75 mg PO QAM 12/08/24 12/08/24 History ezetimibe 10 mg tablet 10 mg PO DAILY 12/08/24 12/08/24 History lisinopril 5 mg tablet 5 mg PO QAM 12/08/24 12/08/24 History nitroglycerin 0.4 mg sublingual 0.4 mg sublingual .Q5MIN X3 PRN 12/08/24 12/08/24 History tablet Chest Pain omeprazole 20 mg capsule,delayed 20 mg PO HS 12/08/24 12/08/24 History release probenecid 500 mg tablet 500 mg PO BID 12/08/24 12/08/24 History tiotropium bromide 2.5 2 puff inhalation QAM 12/08/24 12/08/24 History mcg/actuation mist for inhalation (Spiriva Respimat) torsemide 20 mg tablet 20 mg PO QAM 12/08/24 12/08/24 History Patient History Medical History (Updated 12/08/24 @ 10:49 by Talisha Garcia PA-C) History of Hodgkin's disease Cataract Surgical History (Updated 05/27/24 @ 11:24 by Leo Napier RN) Stented coronary artery RCA S/P cataract surgery History of aortic valve replacement Hx of CABG History of radiation therapy History of hernia repair History of splenectomy History of pulmonic valve repair Family History Father Myocardial infarction Hx of CABG Mother Hypertension Pure hypercholesterolemia Brother Diabetes Hypertension Unknown Prostate cancer Colorectal cancer Myocardial infarction Grandfather Prostate cancer Grandfather Colorectal cancer Denies family history of Ovarian cancer Breast cancer Social History Smoking Status: Never smoker Second Hand Exposure: No; Do You Dip or Chew Tobacco: No; Hx Alcohol Use: No Hx Substance Use: No Preferred Language: Italian Communication Ability: Effective Visual Impairment: No Limitations Hearing Ability: Normal Surgery Specialist Required: No Beliefs That Will Affect Care: None marital status: Current Living Situation: Spouse Current Living Situation Comment: son current occupational status: retired current occupation: Retired Feels Safe at Home: Yes Safety Concerns: Feels Safe At This Time Childhood Exposure to Second-Hand Smoke: No Diet: regular Diet Comment: regular Dental Care, Regularly: Yes Physical Activity Frequency: 1-2 Times per Week Seatbelt Use: always Sunscreen Use: Yes (sometimes ) Assistive Devices: Cane Review of Systems Review of Systems: All systems reviewed & are unremarkable except as noted in HPI & below Physical Exam Constitutional: WD/WN, vitals as above well developed; no acute distress Neck: trachea midline, no thyromegaly Respiratory: normal respiratory effort Auscultation: + diminished lung sounds; no crackles and no rales Cardiovascular: Rate/Rhythm: regular rate and regular rhythm Heart Sounds: + murmur (II/ systolic murmur) Vessels: no JVD Extremities: + edema (trace ankle/pretibial edema) Gastrointestinal (Abdomen): normal bowel sounds, soft, nontender, no hepatosplenomegaly Neurologic: PERRL, EOMI, accommodation nl, no face palsy, no dysarthria Results & Data Vital Signs (Past 12 Hours) Vital Signs Temp Pulse Pulse Resp BP BP Pulse Ox 12/08/24 07:00 85 12/08/24 06:03 89 22 96 12/08/24 06:00 100/73 12/08/24 05:00 92 H 16 135/86 93 12/08/24 04:00 94 H 20 90/67 L 94 12/08/24 03:42 12/08/24 03:42 94 H 20 103/65 93 12/08/24 03:42 93 12/08/24 03:04 95 H 12/08/24 02:30 96 H 20 118/67 93 12/08/24 02:00 84 25 H 116/73 93 12/08/24 01:31 86 21 128/81 96 12/08/24 01:00 95 H 21 96/65 L 95 12/08/24 01:00 95 H 21 96/65 L 91 12/08/24 00:30 105 H 24 103/66 94 12/08/24 00:00 96 H 12 98/59 L 93 12/07/24 23:51 97 H 20 93 12/07/24 23:30 102 H 29 H 112/74 95 12/07/24 23:09 36.6 C 103 H 20 130/83 97 12/07/24 23:00 134 H 22 130/83 96 12/07/24 22:58 93 H Pulse Ox O2 Del Method O2 Del Method O2 Flow Rate 12/08/24 07:00 12/08/24 06:03 Room Air 12/08/24 06:00 12/08/24 05:00 Room Air 12/08/24 04:00 Room Air 12/08/24 03:42 94 Room Air 12/08/24 03:42 Room Air 12/08/24 03:42 Room Air 12/08/24 03:04 12/08/24 02:30 Room Air 12/08/24 02:00 12/08/24 01:31 12/08/24 01:00 12/08/24 01:00 12/08/24 00:30 12/08/24 00:00 12/07/24 23:51 Room Air 0 12/07/24 23:30 12/07/24 23:09 Nasal Cannula 12/07/24 23:00 12/07/24 22:58 Laboratory Results Cardiac Enzymes 12/07/24 12/08/24 Range/Units 23:00 00:53 AST 25 (13-39) U/L Troponin I High Sens 1161.8 H* 993.8 H* (0-20) pg/ml CBC 12/07/24 12/08/24 Range/Units 23:00 03:32 WBC 5.61 6.50 (4.8-10.8) K/ul RBC 3.53 L 3.38 L (4.70-6.10) M/uL Hgb 10.7 L 10.2 L (14.0-18.0) g/dl Hct 32.8 L 30.8 L (42.0-52.0) % Plt Count 230 231 (130-400) K/uL Neut # (Auto) 3.64 4.55 (1.40-6.50) K/uL Lymph # (Auto) 0.96 L 1.04 L (1.20-3.40) K/uL Griggs # (Auto) 0.73 H 0.75 H (0.11-0.59) K/uL Eos # (Auto) 0.23 0.11 (0.00-0.50) K/uL Baso # (Auto) 0.03 0.03 (0.00-0.20) K/uL Comprehensive Metabolic Panel 12/07/24 12/08/24 Range/Units 23:00 03:32 Sodium 136 135 L (136-145) mmol/L Potassium 4.0 4.2 (3.5-5.1) mmol/L Chloride 102 102 (98-107) mmol/L Carbon Dioxide 27 26 (21-32) mmol/L BUN 31 H 33 H (6-23) mg/dl Creatinine 1.93 H 1.92 H (0.6-1.4) mg/dl Glucose 123 H 124 H (70-99(Fasting)) mg/dl Calcium 8.3 L 8.4 L (8.6-10.3) mg/dl AST 25 (13-39) U/L ALT 21 (7-52) U/L Alkaline Phosphatase 109 H (34-104) U/L Total Protein 7.7 (6.0-8.3) gm/dl Albumin 3.5 (3.4-5.0) gm/dl Intake and Output 12/07/24 12/08/24 12/08/24 22:59 06:59 14:59 Intake Total 100 / 100 Balance 100 / 100 Intake: IV 100 / 100 Albumin 25% 25 gm In 100 ml @ 100 / 100 50 mls/hr IV ONE ONE Rx#: [id number] Other: Weight 110.7 kg Diagnostic Findings Telemetry reviewed: NSR with occ PAC and PVC's. No significant bradycardia or high degree AV block since admission EKG reviewed from EMS: NSR with 2nd degree type I AV block EKG reviewed from admission: Sinus tachycardia with 1st degree AV block Non specific ST/T wave abnormality in anterolateral leads Echo report reviewed dated 12/08/24: LV cavity size is small Moderate LVH LV wall motion is normal LVEF 13657% Bioprosthetic AVR in place with normal gradients. Moderate TR RV systolic pressure is elevated at 30-40 mmHg Chest X-Ray 12/07/24 23:21 IMPRESSION: Slight increase in pulmonary vascular congestion. Increased right pleural effusion with basilar atelectasis versus infiltrate. Electronically signed by: Jorge Nazario M.D. 12/08/24 01:54 AM Prior Outpatient Echo Nov 09, 2024: Interpretation Summary The left ventricular cavity size is normal. The LV wall thickness is mildly increased (concentric). There is a dyssynergic contraction pattern to the intraventricular septum wall The regional left ventricular wall motion is otherwise normal. The qualitative LV ejection fraction is 60-64% (normal). The left ventricular diastolic function is severely abnormal (grade III). The right ventricular cavity is mildly dilated. The right ventricular systolic function is mildly reduced . There is an aortic valve prosthesis present. The aortic valve prosthesis systolic gradients are normal for this type prosthesis. Mild tricuspid regurgitation is present. Moderate pulmonary hypertension is present. Dilated IVC with reduced collapsability with sniff indicates an elevated right atrial pressure of 15mmHg. The estimated pulmonary artery systolic pressure is 46mm Hg. Cardiac Cath report reviewed dated 04/09/24: Right heart cath findings -Mean RA 18 mmHg -PA 44/18, mean 31 mmHg -Mean PCWP 20 mmHg -PA sat 62%,m Ao sat 89% on room air -Assumed Samson CO 7.06 L/min; index 3.35 -ABG on room air: 7.351 / 46 / 69 / 26 -ABG on 2L O2 via NC: 7.372 / 45 / 112 / 26; sO2 98% * Severe left main, multivessel CAD: ostial LMCA 100% CASE FILLER; Prox RCA 80% stenosis * 2/2 bypass grafts widely patent: SVG-LAD and SVG-OM2 * s/p successful PCI to prox RCA 80% stenosis with placement of [id number] Xience Skypoint WEST, post-dilated with 3.5mm NC Balloon reducing stenosis to 0% with JAMES 3 flow. Medications Administered Current Inpatient Medications Aspirin (Aspirin 81 Mg Ectab) 81 mg PO QAM ELI Stop: 01/07/25 08:59 Last Admin: 12/08/24 08:33 Dose: 81 mg Atorvastatin Calcium (Atorvastatin 40 Mg Tab) 40 mg PO HS [facility] Stop: 01/07/25 20:59 Atropine Sulfate (Atropine Sulfate 0.1 Mg/Ml 10ml Syr) 1 mg IV Q3M PRN PRN Reason: symptomatic bradycardia Stop: 01/07/25 01:09 Clopidogrel Bisulfate (Clopidogrel Bisulfate 75 Mg Tab) 75 mg PO QAM [facility] Stop: 01/07/25 08:59 Last Admin: 12/08/24 08:34 Dose: 75 mg Ezetimibe (Ezetimibe 10 Mg Tab) 10 mg PO DAILY [facility] Stop: 01/07/25 08:59 Last Admin: 12/08/24 08:33 Dose: 10 mg Fexofenadine HCl (Fexofenadine Hcl 180 Mg Tab) [facility] [place] Stop: 01/07/25 08:59 Last Admin: 12/08/24 08:33 Dose: 180 mg Hydromorphone HCl (Hydromorphone Inj 0.5 Mg/0.5 Ml Syr) 0.25 mg IV Q4H PRN PRN Reason: Pain Stop: 12/22/24 01:46 Promethazine HCl (Phenergan) 6.25 mg in 50.25 mls @ 201 mls/hr IV Q6H PRN PRN Reason: Nausea And Vomiting Stop: 01/07/25 01:46 Non-Formulary Medication (Budesonide) 1 mg INH .UD [facility] Stop: 01/07/25 01:59 Pantoprazole Sodium (Pantoprazole 40 Mg Tab) 40 mg PO HS [facility] Stop: 01/07/25 20:59 Probenecid (Probenecid 500 Mg Tab) 500 mg PO BID [facility] Stop: 01/07/25 08:59 Last Admin: 12/08/24 08:33 Dose: 500 mg Tramadol HCl (Tramadol Hcl 50 Mg Tablet) 25 - 50 mg PO Q4H PRN PRN Reason: Pain Stop: 01/07/25 01:46 Umeclidinium [place] (Umeclidinium [place] 62.5mcg/Blister 7 Puffs/Inhaler) 1 puffs INH QAM [facility] Stop: 01/07/25 08:59 Last Admin: 12/08/24 08:35 Dose: 1 puffs
[2024-12-08 10:47] LABS: Estimated Average Glucose 137 mg/dl; Hemoglobin A1C 6.4 % (4.5-5.6)
[2024-12-08] MEDS ORDERED: Heparin IV Adult Wt-Based Standard w/ INITIAL Bolus Protocol IV STA (11:06)
[2024-12-08] MEDS: HEPARIN 25000 UNIT/500 ML D5W 25,000 UNITS/500 ML BAG IV SCH (11:48)
[2024-12-08] MEDS: HEPARIN SOD (PORCINE) 1000 UNIT/ML IV ONE (11:48)
[2024-12-08] MEDS: HEPARIN SOD (PORCINE) 1000 UNIT/ML ONE (11:49)
--- NOTE | 2024-12-08 13:33 | Cardiac Catheterization ---
Cardiac Cath Procedure Brief Procedure Date December 08, 2024 Pre-Procedure Diagnosis Pre-Procedure Diagnosis: Cardiomyopathy AUC Score AUC Score: 8 Post-Procedure Diagnosis Post-Procedure Diagnosis: Severe CAD Procedure(s) Performed Procedure(s) Performed: Coronary Angiography Paper Sorter Aryan Bernabe MD Discharge Specialist(s) Ijeoma Baca Estimated Blood Loss Estimated Blood Loss: <15cc Medication(s) Medication(s): Fentanyl (12.5 mcg IV x 2), Heparin (5000 units IV), Lidocaine 1% (Local infiltration access site), Nicardipine (250 mcg intra-arterial after arterial sheath insertion) and Versed (1 mg IV x 2) Preliminary Findings Impression: Right dominant anatomy with diffuse luminal atherosclerotic changes. Severe disease is present with 100% occlusion of the right coronary artery, 90% stenosis of the left anterior descending and its very early portion after first high diagonal branch. Left main has diffuse moderate atherosclerosis. Procedure: Coronary angiography via right radial access Catheters: 5 Tristanian long glide sheath, 5 Tristanian TGR, 5 Tristanian JL 3 5, 5 Tristanian JR 5 Tristanian 3 DRC Procedure note: Tortuous right innominate artery Coronary angiography: Right dominant Left main: Large caliber, long. Moderate distal vessel narrowing Left anterior descending: Type III in distribution. Gives rise to a large multi branching high diagonal branch then continues giving large septal perforators to the apex and beyond. In the very proximal portion of the left anterior descen ding but just beyond the first diagonal there is a discrete 99% stenosis. The bifurcating diagonal branch has 50% narrowing in its proximal portion Ramus intermedius: Very large multi branching vessel with 40 to 50% narrowing proximal Left circumflex: Moderate vessel single posterolateral branch Right coronary artery: 100% occlusion mid vessel with diffuse disease in proximal segments. Distal vessel fills modestly via [id number] collateral Recommendations Recommendations: Management Recommendatons (Intracoronary assessment of left main and proximal LAD, same setting) Specimens Specimens: None Anesthesia Start time: 1213, stop time: 1259 Procedural Complication(s) None Disposition Coronary assessment same setting
--- NOTE | 2024-12-08 13:55 | Cardiac Catheterization ---
Cardiac Cath Procedure Full Procedure Date December 08, 2024 Pre-Procedure Diagnosis Pre-Procedure Diagnosis: Cardiomyopathy AUC Score AUC Score: 8 Post-Procedure Diagnosis Post-Procedure Diagnosis: Severe CAD Procedure(s) Performed Procedure(s) Performed: Coronary Angiography Admitting Office Escort Aryan Bernabe MD Applications Engineer(s) Ijeoma Baca Estimated Blood Loss Estimated Blood Loss: <15cc Medication(s) Medication(s): Fentanyl (12.5 mcg IV x 2), Heparin (5000 units IV), Lidocaine 1% (Local infiltration access site), Nicardipine (250 mcg intra-arterial after arterial sheath insertion) and Versed (1 mg IV x 2) Summary of Findings Impression: Right dominant anatomy with diffuse luminal atherosclerotic changes. Severe disease is present with 100% occlusion of the right coronary artery, 90% stenosis of the left anterior descending and its very early portion after first high diagonal branch. Left main has diffuse moderate atherosclerosis. Procedure: Coronary angiography via right radial access Catheters: 5 [place] long glide sheath, 5 [place] TGR, 5 [place] JL 3 5, 5 [place] JR 5 [place] 3 DRC Procedure note: Tortuous right innominate artery Coronary angiography: Right dominant Left main: Large caliber, long. Moderate distal vessel narrowing Left anterior descending: Type III in distribution. Gives rise to a large multi branching high diagonal branch then continues giving large septal perforators to the apex and beyond. In the very proximal portion of the left anterior descendi ng but just beyond the first diagonal there is a discrete 99% stenosis. The bifurcating diagonal branch has 50% narrowing in its proximal portion Ramus intermedius: Very large multi branching vessel with 40 to 50% narrowing proximal Left circumflex: Moderate vessel single posterolateral branch Right coronary artery: 100% occlusion mid vessel with diffuse disease in proximal segments. Distal vessel fills modestly via [id number] collateral Hemodynamics Rest Ao:: 97/61/85 Final Ao: 90/67/78 LV: N/A Recommendations Recommendations: Management Recommendatons (Intracoronary assessment of left main and proximal LAD, same setting) Specimens Specimens: None Radiation Exposure (mGy) 2840 Contrast (mls) 110 Anesthesia Start time: 1213, stop time: 1259 Procedural Complication(s) None Disposition Coronary assessment same setting I attest to the content of the Intraoperative Record and any orders documented therein. Any exceptions are noted below. 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 Echocardiogram with diffuse LV dysfunction and reduced ejection fraction 20-25%.Marked elevation in troponin Patient treated with optimal medical regimen with improved heart failure but only mild increase in ejection fraction. Patient referred for ischemic evaluation CAD Presenation: Non STEMI Heart Failure: NYHA Class: CCS IV Cardiogenic Shock within 24 Hours: No Cardiac Arrest within 24 Hours: No Imaging Studies Past 6 Months: Yes Stress Studies Past 6 Months: No Standard Exercise Test: No Stress Echocardiogram: No Stress Testing w/SPECT MPI: No Cardiac CTA: No Coronary Anatomy Dominant: Right Left Main (% Stenosis): Distal (Moderate taper) LAD (% Stenosis): Proximal (90) D1 (% Stenosis): Proximal (50) Circumflex (% Stenosis): Normal RCA (% Stenosis): Mid and Distal Left Ventricular Angiography EF (%): N/A Diagnostic Physicians Name: Aryan Bernabe MD Status: Urgent Closure Device Percutaneous Entry Location: Radial Recommendations: Management Recommendatons (Intracoronary assessment of left main and proximal LAD, same setting)
--- NOTE | 2024-12-08 17:40 | Communication Note ---
Date of Service: December 08, 2024 Please note addendum. Cardiac catheterization report currently on patient chart inadvertently added. Does not apply to current patient and will be removed
[2024-12-08 19:31] LABS: ANTI-Xa, UFH(UnfractionatedHep 0.75 IU/ml (0.3-0.7)
[2024-12-08] MEDS: BUDESONIDE 0.5 MG/2 ML VIAL (PULMICORT) INH SCH (20:17)
[2024-12-08] MEDS: ATORVASTATIN 40 MG TAB PO SCH (21:31)
[2024-12-08] MEDS: PANTOprazole 40 MG TAB PO SCH (21:31)
[2024-12-09 03:20] LABS: ANTI-Xa, UFH(UnfractionatedHep 0.59 IU/ml (0.3-0.7)
[2024-12-09 05:22] VITALS: TEMP 98.2
[2024-12-09 07:46] LABS: Appearance Urine Clear (Clear); Bilirubin Urine Negative (Negative); Blood Urine Negative (Negative); Color Urine Yellow; Glucose Urine UA Negative (Negative); Ketones Urine Negative (Negative); Leukocyte Esterase Urine Negative (Negative); Nitrite Urine Negative (Negative); Protein Urine Negative (Negative); Specific Gravity Urine 1.011 (1.000-1.030); Urobilinogen Urine Negative (Negative); pH Urine 5.5 (4.5-7.5)
[2024-12-09 08:27] LABS: ANTI-Xa, UFH(UnfractionatedHep 0.48 IU/ml (0.3-0.7)
[2024-12-09] MEDS: SODIUM CHLORIDE 0.9% 1,000 ML IV ONE (11:34)
[2024-12-09 12:07] VITALS: RESP 35; O2SAT 91
--- NOTE | 2024-12-09 13:05 | Discharge Summary ---
Date of Service December 09, 2024 Admission HPI Per Admitting Provider History obtained from patient and records. Medical history significant for chronic diastolic heart failure (EF 60 to 64%, TTE 2024), CAD status post CABG/stent, severe status post bioprosthetic AVR, postop A-fib/junctional bradycardia, history second-degree AVB Mobitz type I as per records, mild TR, pulmonary hypertension, labile hypertension, hyperlipidemia, bronchial asthma, nocturnal hypoxemia as per records, Hodgkin's lymphoma status post surgery/chemoradiation, CRI (baseline creatinine 1.4), chronic anemia (baseline hemoglobin of 10), GERD, gout, skin cancer status post surgery. Last [facility] confinement 2015 for dizziness post CABG surgery. Patient gives history of increased frequency of recurrent syncopal episodes this year. Mild chest/back discomfort symptoms. Fatigue symptoms without recollection of recent tick bites. No witnessed seizures or incontinence at home. Patient seen at local [facility] urgent care center for evaluation after an event which resulted in head injury. Patient was visiting family in [place], [place] last weekend when he had another episode at the hotel resulting in head injury. Patient observed at [facility] ER. Normal head scan but abnormal heart enzyme. Patient unaware of slow heartbeats. Patient signed out AGAINST MEDICAL ADVICE because he was unhappy with care. Last night patient felt more tired and fatigued. Warm sensation in his chest with transient back discomfort relieved by nitroglycerin. [place] like he was going to pass out. No headache symptoms. Compliant with home medications. EMS called to patient's home. SBP noted to be 70s, heart rate 40s. Second-degree AV block Mobitz type II and complete heart block on outpatient strips taken by EMS. SBP 90s, heart rate 60s post IV atropine and IVF bolus administration by EMS. Patient currently comfortable. 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 Admission Exam Per Admitting Provider GENERAL: Comfortable, pleasant, obese, no respiratory distress SKIN: Pallor,, warm HEENT: Pale palpebral conjunctivae, no ptosis, moist buccal mucosa NECK : Supple, no tenderness CHEST : Healed sternal scar, CTA, no tenderness HEART : RRR, no obvious murmurs ABDOMEN: Some distention, nontender EXTREMITIES : Bilateral LE swelling without LE tenderness, palpable pulses, no other conspicuous deformities noted NEUROLOGIC : Coherent, no facial asymmetry, no other gross focality Principal Diagnosis Complex cardiac history - CAD s/p CABG, hx of bioprosthetic valve Bradycardic, + Crescendo angina In need of cardiac cath at tertiary center Discharge Exam GENERAL: WD/WN M in NAD HEENT: NC/AT NECK : Supple CHEST : Healed sternal scar, CTA, no tenderness HEART : RRR, no obvious murmurs ABDOMEN: Some distention, nontender EXTREMITIES : B/l LE swelling without LE tenderness, palpable pulses, moves extremities NEUROLOGIC : Coherent, no facial asymmetry, speech fluent, moves extremities SKIN: warm, dry Discharge Data Allergies Allergy/AdvReac Type Severity Reaction Status Date / Time mold Allergy Unknown Verified 12/08/24 00:35 pollen extracts Allergy Unknown Verified 12/08/24 00:35 allopurinol AdvReac Itching Verified 12/08/24 00:35 Consultations 12/08/24 00:32 ED Decision to Admit Stat 12/08/24 03:42 Consult Cardiology Routine Hospital Course (1) Hypotension, unspecified: Secondary to symptomatic bradycardia 2AVB Mobitz type II/complete heart block on strips taken by EMS on the field History 2AVB Mobitz type I on outpatient ZIO monitor February 2024 as per records Troponin elevation secondary to illness in the setting of kidney dysfunction chronic diastolic heart failure (EF 60 to 64%, TTE 2024), equivocal volume status given congestion on x-ray hx CAD status post CABG severe status post bioprosthetic AVR postop A-fib/junctional bradycardia as per records mild TR pulmonary hypertension hyperlipidemia, on statin Rx bronchial asthma, not in acute exacerbation Nocturnal hypoxemia as per records, outpatient sleep study contemplated Hodgkin's lymphoma status post surgery/chemoradiation, in remission Hyperglycemia likely prediabetes, hemoglobin A1c of 6.4 from 2022 chronic anemia, hemoglobin at baseline Admitted to PCU IV albumin 1 dose for hypotension given congestion External pacer pads on Atropine as needed symptomatic bradycardia Hold beta-miguel angel and other BP meds for now Cardiology consult re: symptomatic bradycardia N.p.o. in anticipation of pacemaker placement Cardiology consulted and discussed with in detail (Dr. Bernabe) - Underlying conduction system disease present but concerning symptoms for crescendo anginal and possible right coronary distribution ischemia as cause. Will require cardiac catheterization. Complexity of issue grafts, prior coronary invention requests tertiary [place] [facility] [place]. Patient accepted pending bed availability. Dr. Ordaz Total Time Total Time Spent Total Time Spent (In Minutes): 40 Discharge Plan Discharge Items Patient Disposition: Transfer Acute Care Hospital Reason For Visit: SYMPTOMATIC LIZBETH Discharge Diagnosis: Complex cardiac history - CAD s/p CABG, hx of bioprosthetic valve Bradycardic, + Crescendo angina In need of cardiac cath at tertiary center Activity: Per Instructions section Non-emergency contact: [facility] Call non-emergency contact if: you have any medication questions and your symptoms worsen Follow-up/Referrals: Chelle Vasquez, [Primary Care Provider] - Diet: Nothing by Mouth Addtl Attending Provider Instructions: Pt to be transferred to [facility] - for further evaluation and care - pt in need of cardiac cath, has complex cardiac hx - accepting physician - Dr. Ordaz. Pending Studies at Discharge: No Stand-Alone Forms: My [facility] Skilled Items Patient informed of condition?: Yes DNR: No Discharge Level of Care: Other Communicable Disease: No Discharge Prognosis: Other Lines: Peripheral IV Urinary Catheter: No Medications and DC Order Prescriptions: Continued amoxicillin 500 mg capsule 2,000 mg PO .COMPLEX Qty: 4 5RF Rx Instructions: 2,000 mg PO take 4 capsules by mouth one hour before dental appointment. tramadol 50 mg tablet 50 mg PO Q6H PRN (Reason: pain) Qty: 60 3RF cholecalciferol (vitamin D3) 25 mcg (1,000 unit) capsule 2,000 unit PO HS fexofenadine 180 mg tablet 180 mg PO QAM atorvastatin 40 mg tablet 40 mg PO HS clopidogrel 75 mg tablet 75 mg PO QAM ezetimibe 10 mg tablet 10 mg PO DAILY aspirin [Aspir-Low] 81 mg Tablet,Delayed Release (Dr/Ec) 81 mg PO QAM omeprazole 20 mg capsule,delayed release(DR/EC) 20 mg PO HS torsemide 20 mg tablet 20 mg PO QAM probenecid 500 mg tablet 500 mg PO BID nitroglycerin 0.4 mg tablet, sublingual 0.4 mg sublingual .Q5MIN X3 PRN (Reason: Chest Pain) Rx Instructions: DO NOT EXCEED THREE TABLETS IN 15 MINUTES Spiriva Respimat 2.5 mcg/actuation mist 2 puff INHALATION QAM albuterol sulfate 90 mcg/actuation HFA aerosol inhaler 2 puff INHALATION .Q4-6H PRN (Reason: Shortness Of Breath Or Wheezing) budesonide 1 mg/2 mL suspension for nebulization 1 mg inhalation .UD albuterol sulfate 2.5 mg /3 mL (0.083 %) solution for nebulization 2.5 mg continuous nebulization BID Held lisinopril 5 mg tablet 5 mg PO QAM Hold Instructions: Resume on 12/16/24. until discussed on discharge from [facility] carvedilol 3.125 mg tablet 3.125 mg PO BID Hold Instructions: Resume on 12/10/24. until reviewed by cardiology at [facility] Rx Instructions: 12/08/24 MED ORDERED BID, PT TAKES ONE TIME DAILY AT Discharge Orders: Discharge Order (Routine); Ordered 12/09/24 Ordered By: Kieran Waters/Other Patient Handouts: Prediabetes, 5 Steps for Eating Healthier Admission Data Admit Date/Time: 12/08/24 01:09 Attending Provider: Kieran Tompkins Admit Provider: Donis Parra Primary Care Provider: Chelle Vasquez Other Providers: Donis Parra; Ijeoma Campos; Kenneth Prince; Aryan Bernabe; Uriel Warren; Jorge Sarabia; Woody Rosa; Talisha Garcia; Nicole Hough; Laurel Zuleta; Ijeoma Heller; Cornelius Rome; Miguel Garcia; Abbey Lemos; Brenda Botello; Jenny Figueredo; Janki Diaz; Dada Maciel; Lisa Alejo; Tracey Cole
--- NOTE | 2024-12-09 14:32 | Cardiology Progress Note ---
Date of Service December 09, 2024 Assessment & Plan (1) NSTEMI (non-ST elevated myocardial infarction): (2) CAD (coronary artery disease): (3) Second degree AV block, Mobitz type I: (4) S/P CABG (coronary artery bypass graft): (5) S/P aortic valve replacement: Plan Patient with complex history of CAD s/p CABG in 2016 (SVG to LAD, SVG to OM2) and WEST to the RCA in March 2024 with patent bypass grafts at that time, AVR in 2016. Over the last several months patient with recurrent lightheadedness/near syncope/syncope associated with symptoms of crescendo angina. Last night, he had recurrent near syncopal event with associated SOB/chest heaviness. Found to be bradycardic and intermittent 2nd degree AV block Type I with hypotension on arrival. HS troponin elevated at 1100, repeat 900. EKG demonstrating NSR with non specific ST/T wave abnormality in anterolateral l aries. He reports worsening anginal symptoms over the last several months, with minimal exertion and resolved with SL nitro. Concerns for RCA disease leading to symptomatic bradycardia and/or AV dis sociation. Would recommend repeat cardiac catheterization for further evaluation of his ischemic heart disease. Echo this morning with preserved LVEF, no wall motion abnormalities. Mild renal insufficiency noted on arrival, likely due to up titration of diuretics as an outpatient due to mild HFpEF. Currently appears euvolemic. Hold diuretics. Gentle IV fluids Continue ASA, statin, plavix. Consider IV heparin. Beta miguel angel on hold due to concerns regarding symptomatic bradycardia and 2nd degree AV block. Further recommendations pending evaluation/discussion with Dr. Bernabe Patient was seen and personally examined. Full assessment and plan as outlined by advanced provider as above. Care and management personally discussed and endorsed. Complex 69-year-old male with known coronary artery disease as outlined. Most recent coronary intervention in March 2024 to the proximal right coronary artery for anginal symptoms with substantial improvement in symptom pattern. Now pre sents with gradual return of exertional symptoms and chest pressure as well as additional short shortness of breath with activity now limiting. In addition he has suffered 3 syncopal events with separate etiologies 1 with orthostatic changes second with choking event and third exertionally symptoms consistent with possible exercise-induced angina. Last evening experienced symptoms of hot flushing with shortness of breath and chest heaviness. Transported via ambulance with observed AV block in ambulance treated with atropine and fluids. EKG on presentation without acute injury pattern troponins however trended high. Currently asymptomatic at rest. Echocardiogram without new wall motion abnormality and with normal bioprosthetic aortic valve function. Discussed in detail with patient. Underlying conduction system disease present but concerning symptoms for crescendo anginal and possible right coronary distribution ischemia as cause. Will require cardiac catheterization. Complexity of issue grafts, prior coronary invention requests tertiary facility [facility] as [place]. Patient accepted pending bed availability. Dr. Ordaz 12/09/2024 No complaints except for hungry. Troponins now trending downward. No further arrhythmias tacky or bradycardia on telemetry Anticoagulation ongoing with IV heparin Plan as otherwise outlined above. Admission and Anticipated Discharge Date Admission Date: December 08, 2024 Subjective Patient seen and examined, chart, medications, telemetry reviewed. No further arrhythmias overnight. Rhythm sinus this morning. Blood pressures creeping up off carvedilol. Creatinine elevated mildly Transfer to [facility] pending Physical Exam Constitutional: WD/WN, vitals as above well developed; no acute distress Neck: trachea midline, no thyromegaly Respiratory: normal respiratory effort Auscultation: + diminished lung sounds; no crackles and no rales Cardiovascular: Rate/Rhythm: regular rate and regular rhythm Heart Sounds: + murmur (II/ systolic murmur) Vessels: no JVD Extremities: + edema (trace ankle/pretibial edema) Gastrointestinal (Abdomen): normal bowel sounds, soft, nontender, no hepatosplenomegaly Neurologic: PERRL, EOMI, accommodation nl, no face palsy, no dysarthria Results & Data Vital Signs (Past 12 Hours) Vital Signs Temp Pulse Pulse Resp BP BP Pulse Ox 12/09/24 12:02 98 H 35 H 91 12/09/24 12:00 158/100 H 12/09/24 11:53 99 H 24 94 12/09/24 11:38 98 H 22 94 12/09/24 11:17 96 H 23 90 12/09/24 11:00 124/91 12/09/24 10:59 96 H 13 94 12/09/24 10:32 94 H 19 93 12/09/24 10:03 95 H 27 H 93 12/09/24 10:00 136/95 12/09/24 10:00 136/95 12/09/24 09:48 98 H 30 H 94 12/09/24 09:33 100 H 30 H 96 12/09/24 09:00 124/81 12/09/24 09:00 124/81 12/09/24 09:00 124/81 12/09/24 09:00 93 H 25 H 94 12/09/24 08:42 91 H 17 90 12/09/24 08:15 89 21 93 12/09/24 08:00 115/80 12/09/24 08:00 115/80 12/09/24 07:57 90 23 93 12/09/24 07:30 90 25 H 92 12/09/24 07:30 12/09/24 07:27 91 H 12/09/24 07:02 98/78 L 12/09/24 07:02 98/78 L 12/09/24 07:02 98/78 L 12/09/24 07:02 98/78 L 12/09/24 07:02 98/78 L 12/09/24 07:00 91 H 26 H 91 12/09/24 06:48 91 H 16 93 12/09/24 06:00 92 H 32 H 98 12/09/24 06:00 138/90 12/09/24 06:00 97 H 18 138/90 92 12/09/24 05:36 91 H 44 H 95 12/09/24 05:01 142/96 H 12/09/24 05:00 93 H 25 H 98 12/09/24 05:00 36.8 C 92 H 22 142/96 H 95 12/09/24 04:09 91 H 25 H 90 12/09/24 04:00 122/80 12/09/24 04:00 122/80 12/09/24 04:00 93 H 17 122/80 94 12/09/24 03:57 92 H 19 93 12/09/24 03:42 12/09/24 03:39 90 25 H 99 12/09/24 03:00 93 H 22 96 12/09/24 03:00 121/82 12/09/24 03:00 36.6 C 93 H 22 121/82 93 12/09/24 02:36 91 H 23 97 Pulse Ox O2 Del Method O2 Del Method O2 Flow Rate 12/09/24 12:02 12/09/24 12:00 12/09/24 11:53 12/09/24 11:38 12/09/24 11:17 12/09/24 11:00 12/09/24 10:59 12/09/24 10:32 12/09/24 10:03 12/09/24 10:00 12/09/24 10:00 12/09/24 09:48 12/09/24 09:33 12/09/24 09:00 12/09/24 09:00 12/09/24 09:00 12/09/24 09:00 12/09/24 08:42 12/09/24 08:15 12/09/24 08:00 12/09/24 08:00 12/09/24 07:57 12/09/24 07:30 12/09/24 07:30 Nasal Cannula 2 12/09/24 07:27 12/09/24 07:02 12/09/24 07:02 12/09/24 07:02 12/09/24 07:02 12/09/24 07:02 12/09/24 07:00 12/09/24 06:48 Room Air 12/09/24 06:00 12/09/24 06:00 12/09/24 06:00 Nasal Cannula 2 12/09/24 05:36 12/09/24 05:01 12/09/24 05:00 12/09/24 05:00 Nasal Cannula 2 12/09/24 04:09 12/09/24 04:00 12/09/24 04:00 12/09/24 04:00 Nasal Cannula 2 12/09/24 03:57 12/09/24 03:42 94 Nasal Cannula 12/09/24 03:39 12/09/24 03:00 12/09/24 03:00 12/09/24 03:00 Nasal Cannula 2 12/09/24 02:36 Laboratory Results Laboratory Results - last 24 hr 12/08/24 12/09/24 12/09/24 18:22 01:35 06:30 Heparin Anti-Xa, Unfract 0.75 H* 0.59 Urine Color Yellow Urine Appearance Clear Urine pH 5.5 Ur Specific [place] 1.011 Urine Protein Negative Urine Glucose (UA) Negative Urine Ketones Negative Urine Blood Negative Urine Nitrite Negative Urine Bilirubin Negative Urine Urobilinogen Negative Ur Leukocyte Esterase Negative 12/09/24 07:38 Heparin Anti-Xa, Unfract 0.48 Urine Color Urine Appearance Urine pH Ur Specific [place] Urine Protein Urine Glucose (UA) Urine Ketones Urine Blood Urine Nitrite Urine Bilirubin Urine Urobilinogen Ur Leukocyte Esterase
[2024-12-09 15:10] VITALS: BP 138/90; PULSE 91
--- NOTE | 2024-12-10 06:00 | Electrocardiogram Report ---
Test Reason : Blood Pressure : */* mmHG Vent. Rate : 101 BPM Atrial Rate : 101 BPM P-R Int : 208 ms QRS Dur : 82 ms QT Int : 362 ms P-R-T Axes : 47 2 106 degrees QTcB Int : 469 ms Sinus tachycardia with 1st degree A-V block Nonspecific ST and T wave abnormality Abnormal ECG When compared with ECG of 27-May-2024 11:13, T wave amplitude has decreased in Anterior leads Confirmed by Jovanny Rashid ([id number]) on 12/10/2024 5:59:51 AM Referred By: REFERRED SELF Confirmed By: Jovanny Rashid
--- NOTE | 2024-12-10 06:01 | Electrocardiogram Report ---
Test Reason : Blood Pressure : */* mmHG Vent. Rate : 96 BPM Atrial Rate : 96 BPM P-R Int : 198 ms QRS Dur : 80 ms QT Int : 360 ms P-R-T Axes : 66 -23 42 degrees QTcB Int : 454 ms Sinus rhythm with occasional Premature ventricular complexes Cannot rule out Anterior infarct , age undetermined Nonspecific T wave abnormality Abnormal ECG When compared with ECG of 07-Dec-2024 22:58, Premature ventricular complexes are now Present Confirmed by Jovanny Rashid ([id number]) on 12/10/2024 6:00:25 AM Referred By: REFERRED SELF Confirmed By: Jovanny Rashid
== END 2024-12-09 15:10 | disposition short-term general hospital (02) | DRG 309 ==
LOC: ED 22:52 → EDINP 12-08 01:09 → 1E 12-08 10:52 → EDINP 12-09 03:42
DX: I25.10 Atherosclerotic heart disease of native coronary artery without angina pectoris; R00.1 Bradycardia, unspecified; N28.9 Disorder of kidney and ureter, unspecified; Z95.2 Presence of prosthetic heart valve; Z85.72 Personal history of non-Hodgkin lymphomas; I11.0 Hypertensive heart disease with heart failure; I24.89 Other forms of acute ischemic heart disease; K21.9 Gastro-esophageal reflux disease without esophagitis; D64.9 Anemia, unspecified; Z95.5 Presence of coronary angioplasty implant and graft; Z79.82 Long term (current) use of aspirin; I44.2 Atrioventricular block, complete; Z82.49 Family history of ischemic heart disease and other diseases of the circulatory system; R09.02 Hypoxemia; M10.9 Gout, unspecified; I50.32 Chronic diastolic (congestive) heart failure; Z95.1 Presence of aortocoronary bypass graft; E78.5 Hyperlipidemia, unspecified; I48.91 Unspecified atrial fibrillation; R73.03 Prediabetes; I95.9 Hypotension, unspecified; Z88.8 Allergy status to other drugs, medicaments and biological substances; J45.909 Unspecified asthma, uncomplicated; Z79.899 Other long term (current) drug therapy

== ENCOUNTER 2025-09-19 13:53 | Inpatient (IN) ==
--- NOTE | 2025-09-19 14:35 | Emergency Department Note ---
Impression & Plan Exertional dyspnea, Congestive heart failure ED Provider Note CHIEF COMPLAINT: worsening sob, heart failure HISTORY OF PRESENTING ILLNESS: Patient is a 70-year-old male who presents to the emergency department today for complaints of worsening shortness of breath with a history of heart failure. He reports being seen by his PCP today and they referred him here to the emergency department for admission and IV Lasix. He has an extensive cardiac history such as an NSTEMI, [place] pacemaker, Hodgkin's lymphoma with significant radiation over the heart, CABG. Patient reports a viral respiratory illness around December and since then the shortness of breath has never worsened or improved. He does describe the feeling as exertional fatigue rather than shortness of breath. While at his PCP they told him that his SpO2 was 80% on room air. He reports his past BNP that was done last week was 900. He does currently take Brilinta for atrial fibrillation that is rate controlled. Patient denies chest pain, sob, breathing difficulties, abdominal pain, headache, fevers/chills, blood in stool or urine, any recent illness, or any recent travel. REVIEW OF SYSTEMS: See HPI for pertinent positives and pertinent negatives. ALLERGIES: See below MEDICATIONS: See below PAST MEDICAL HISTORY: See below PHYSICAL EXAM: VITALS: Vitals are noted on the nurse's note and reviewed by myself. GENERAL: Non toxic, in no acute distress, non-diaphoretic. SKIN: +1-+2 pitting edema to the BLE. No open area, drainage, rashes, erythema noted. Capillary refill <2 sec. EYES: PERRLA. EOMI. Conjunctivae without injection, sclerae without icterus. NECK: Supple without nuchal rigidity. HEART: Regular rate and rhythm without murmurs gallops or rubs. LUNGS: Clear to auscultation bilaterally without wheezes, rales or rhonchi. No retractions or accessory muscle use. ABDOMEN: Positive bowel sounds x 4. Normal tympanic percussion. Soft, nontender to palpation. MUSCULOSKELETAL: Ambulatory with a steady gait. No gross musculoskeletal defects. NEURO: Patient was alert and oriented. No focal neurological deficits. DIFFERENTIAL DIAGNOSIS: Differential diagnosis includes acute coronary syndrome, pulmonary embolism, pneumothorax, pericarditis, myocarditis, endocarditis, anxiety, musculoskeletal pain, GERD, costochondritis, pneumonia, among others. ED COURSE AND MEDICAL DECISION MAKING: HISTORY FROM INDEPENDENT HISTORIAN: History was provided by the patient and his who is at bedside and secondary historian. MONITOR: Continuous sap trainer: Order was placed for continuous sap trainer. Patient was placed on the sap trainer and continuous pulse ox. Patient was noted to be in normal sinus rhythm at an initial rate of 90 bpm per my interpretation. EKG: EKG was interpreted by myself as sinus rhythm with first-degree AV block at a rate of 92 bpm. INTERPRETATION OF LABS: I interpreted the labs with full lab results as below in the lab section of this note. Laboratory results pertinent to the emergent complaint are discussed in the MDM section below. The patient was advised to follow up with their PCP and/or specialist(s) for further outpatient monitoring and management of any abnormal results. INTERPRETATION OF IMAGING: Imaging studies were interpreted by myself and read by radiology as per the imaging section of this note. The patient was advised to follow up with their PCP and/or specialist(s) for further outpatient management of any non-emergent abnormal findings. CHRONIC MEDICAL/SOCIAL CONDITIONS AFFECTING CARE: No social concerns were identified as barriers to patients care. EXTERNAL RECORDS REVIEWED: PCP visit from 09/19/2025 prior to coming to the emergency department. I also reviewed the patient's pacemaker procedure from 03/02/2025. ESCALATION OF CARE CONSIDERED: I considered admission on this patient due to ongoing symptoms of exertional fatigue/sob and referral by PCP for IV lasix. CONSULTATIONS: I had a meaningful discussion about this patient with Dr. Wilkins who agrees with my assessment and the treatment plan. I also consulted with RACHELE Bustamante for admission and patient was accepted. SUMMARY: I examined the patient for complaints of exertional fatigue. A physical exam and history were performed. Nursing notes, EMR, and medication list were personally reviewed. This patient presents with exertional fatigue/sob, most likely secondary to CHF exacerbation. Presentation not consistent with acute cardiac etiologies to include ACS, CHF, pericardial effusion, tamponade . Presentation not consistent with acute respiratory etiologies to include acute PE (Wells low risk), pneumothorax, asthma, COPD exacerbation, allergic etiologies, or infectious etiologies such as PNA. CBC showed no leukocytosis, thrombocytopenia. Hbg was 11.2 which is an improvement from his past 2. PT was 12.7, INR 1.2. Normal APTT. CMP showed no emergent findings but a creatinine of 1.61 which is about baseline for the patient. Troponin was 7. BNP was 292. Urinalysis was negative for leukocytes, nitrates, bacteria. Chest x-ray showed cardiomegaly with pulmonary edema. There is a right pleural effusion with right mid lung and right basilar consolidation which has progressed from the previous x-ray. Chronic right hemidiaphragmatic elevation. Patient was given Lasix 40 mg IV here in the emergency department. I did consult with Dianna lacey PA-C for admission and the patient was accepted. DIAGNOSIS: CHF exacerbation, shortness of breath TREATMENT PLAN/DISCHARGE INSTRUCTIONS: Admit to medicine. The chart was completed utilizing [employer] voice recognition software.Grammatical errors, random word insertions, pronoun errors, and incomplete sentences are an occasional consequence of this system due to software limitations, ambient noise, and hardware issues.Any formal questions or concerns about the content, text, or information contained within the body of this dictation should be directly addressed to the physician for clarification. Past Med/Surg History Problem List (Updated 09/21/25 @ 00:40 by GILBERTO Lindsay) Congestive heart failure (Acute) Exertional dyspnea (Acute) Asthma Chronic pleural effusion Acute on chronic heart failure with preserved ejection fraction (HFpEF) Second degree AV block, Mobitz type I NSTEMI (non-ST elevated myocardial infarction) Symptomatic bradycardia (Acute) Hypotension, unspecified Prediabetes Exertional hypotension CAD (coronary artery disease) BPH (benign prostatic hyperplasia) Chronic kidney disease Allergic rhinitis (Chronic) Chronic asthmatic bronchitis (Chronic) Esophageal reflux (Chronic) Gout (Chronic) HTN, goal below 140/90 (Chronic) Hyperlipidemia (Chronic) Left ventricular diastolic dysfunction (Chronic) Left ventricular hypertrophy (Chronic) Low testosterone (Chronic) Mild tricuspid regurgitation (Chronic) Paralyzed hemidiaphragm (Chronic) Paroxysmal atrial fibrillation (Chronic) Rosacea (Chronic) S/P CABG (coronary artery bypass graft) (Chronic) S/P aortic valve replacement (Chronic) Pleural effusion on right (Chronic) Anemia (Chronic) Atrial fibrillation Medical History History of Hodgkin's disease Cataract Surgical History Stented coronary artery RCA S/P cataract surgery History of aortic valve replacement Hx of CABG History of radiation therapy History of hernia repair History of splenectomy History of pulmonic valve repair Family History Father Myocardial infarction Hx of CABG Mother Hypertension Pure hypercholesterolemia Brother Diabetes Hypertension Unknown Prostate cancer Colorectal cancer Myocardial infarction Grandfather Prostate cancer Grandfather Colorectal cancer Denies family history of Ovarian cancer Breast cancer Social History Smoking Status: Never smoker Second Hand Exposure: No; Do You Dip or Chew Tobacco: No; Hx Alcohol Use: Yes Alcohol type: wine Alcohol Intake Frequency: 4 or More x per/Week Hx Substance Use: No Preferred Language: Azerbaijani Communication Ability: Effective Visual Impairment: No Limitations Hearing Ability: Normal Inspector Rag Sorting Required: No Beliefs That Will Affect Care: None marital status: Current Living Situation: Family Current Living Situation Comment: & adult son current occupational status: retired current occupation: Retired Other Information That Helps Us Care for You: No Feels Safe at Home: Yes Safety Concerns: Feels Safe At This Time Childhood Exposure to Second-Hand Smoke: No Diet: regular Diet Comment: regular Dental Care, Regularly: Yes Physical Activity Frequency: 1-2 Times per Week Seatbelt Use: always Sunscreen Use: Yes (sometimes ) Assistive Devices: CPAP and Oxygen - at Night Allergies Allergies Allergy/AdvReac Type Severity Reaction Status Date / Time mold Allergy Unknown Verified 03/02/25 10:32 pollen extracts Allergy Unknown Verified 03/02/25 10:32 allopurinol AdvReac Itching Verified 03/02/25 10:32 Home Meds Home Medications Medication Instructions Recorded Confirmed fexofenadine 180 mg tablet 180 mg PO QAM 07/05/19 09/19/25 cholecalciferol (vitamin D3) 25 2,000 unit PO HS 01/06/23 09/19/25 mcg (1,000 unit) capsule albuterol sulfate 2.5 mg/3 mL 2.5 mg continuous nebulization BID 12/08/24 09/19/25 (0.083 %) solution for nebulization PRN Other albuterol sulfate 90 mcg/actuation 2 puff inhalation .Q4-6H PRN 12/08/24 09/19/25 aerosol inhaler Shortness Of Breath Or Wheezing aspirin 81 mg tablet,delayed 81 mg PO QAM 12/08/24 09/19/25 release atorvastatin 40 mg tablet 40 mg PO 12/08/24 09/19/25 budesonide 1 mg/2 mL suspension 1 mg inhalation .UD PRN Other 12/08/24 09/19/25 for nebulization ezetimibe 10 mg tablet 10 mg PO DAILY 12/08/24 09/19/25 lisinopril 5 mg tablet 5 mg PO QAM 12/08/24 09/19/25 nitroglycerin 0.4 mg sublingual 0.4 mg sublingual .Q5MIN X3 PRN 12/08/24 09/19/25 tablet Chest Pain omeprazole 20 mg capsule,delayed 20 mg PO HS 12/08/24 09/19/25 release probenecid 500 mg tablet 500 mg PO BID 12/08/24 09/19/25 torsemide 20 mg tablet 20 mg PO QAM 12/08/24 09/19/25 ticagrelor 90 mg tablet (Brilinta) 90 mg PO BID 03/02/25 09/19/25 isosorbide mononitrate 30 mg 30 mg PO QAM 09/19/25 09/19/25 tablet,extended release 24 hr metoprolol succinate 25 mg 25 mg PO HS 09/19/25 09/19/25 tablet,extended release 24 hr potassium chloride 10 mEq 10 meq PO QAM 09/19/25 09/19/25 tablet,extended release umeclidinium 62.5 mcg/actuation 1 inh inhalation DAILY 09/19/25 09/19/25 blister powder for inhalation (Incruse Ellipta) Previous Rx's Medication Instructions Recorded tramadol 50 mg tablet 50 mg PO Q6H PRN pain #60 tabs 09/22/23 Results & Data (ED) Vital Signs Vital Signs - 24 hr 09/19/25 13:55 09/19/25 14:20 09/19/25 14:32 Temperature 36.6 C Temperature Source Temporal Artery Scan Pulse Rate 96 H 91 H Respiratory Rate 19 Respiratory Effort / Characteristics Non-Labored Spontaneous Respiratory Depth Normal Respiratory Pattern Regular Blood Pressure 152/96 H Blood Pressure Mean 114 Pulse Oximetry 95 98 Oxygen Delivery Method Room Air Sepsis Recent Fever Within 48 Hours No Sepsis New/Unexplained Change in Mental Status No Sepsis Action Taken by Nursing No Action Required Laboratory Data 09/20/25 05:55 09/20/25 05:55 Lab Results 12/08/25 Range/Units 14:30 WBC 7.14 (4.8-10.8) K/ul RBC 3.64 L (4.70-6.10) M/uL Hgb 11.2 L (14.0-18.0) g/dL Hct 33.5 L (42.0-52.0) % MCV 92.0 (80.0-100.0) fL MCH 30.8 (25.0-34.0) pg MCHC 33.4 (32.0-36.0) g/dL RDW Std Deviation 62.4 H (36.4-46.3) fL RDW Coeff of Sarahy 18.6 H (11.5-14.5) % Plt Count 331 (130-400) K/uL MPV 10.2 (9.4-12.4) fL Immature Gran % (Auto) 0.1 % Neut % (Auto) 70.2 % Lymph % (Auto) 13.7 % [place] % (Auto) 12.2 % Eos % (Auto) 3.2 % Baso % (Auto) 0.6 % Neut # (Auto) 5.01 (1.40-6.50) K/uL Lymph # (Auto) 0.98 L (1.20-3.40) K/uL [place] # (Auto) 0.87 H (0.11-0.59) K/uL Eos # (Auto) 0.23 (0.00-0.50) K/uL Baso # (Auto) 0.04 (0.00-0.20) K/uL Immature Gran # (Auto) 0.01 (0.01-0.20) K/uL PT 12.7 H (9.0-12.0) Seconds INR 1.2 H (0.9-1.1) APTT 25 (21-31) Seconds PTT Ratio 0.9 Sodium 136 (136-145) mmol/L Potassium 4.3 (3.5-5.1) mmol/L Chloride 98 (98-107) mmol/L Carbon Dioxide 29 (21-32) mmol/L Anion Gap 9 (3-11) BUN 35 H (6-23) mg/dl Creatinine 1.61 H (0.6-1.4) mg/dl Est Cr Clr Drug Dosing 47.8 ml/min eGFR 45.44 BUN/Creatinine Ratio 21.7 H (10-20) Glucose 118 H (70-99(Fasting)) mg/dl Calcium 9.4 (8.6-10.3) mg/dl Total Bilirubin 0.9 (0.2-1.0) mg/dl AST 26 (13-39) U/L ALT 17 (7-52) U/L Alkaline Phosphatase 118 H (34-104) U/L Troponin I High Sens 7.0 (0-20) pg/ml B-Natriuretic Peptide 292 H (0-100) pg/ml Total Protein 9.2 H (6.0-8.3) gm/dl Albumin 3.5 (3.4-5.0) gm/dl Globulin 5.7 H (2.5-4.0) gm/dl Albumin/Globulin Ratio 0.6 L (0.9-2) Lipase 59 (11-82) U/L Urine Color Yellow Urine Appearance Clear (Clear) Urine pH 5.5 (4.5-7.5) Ur Specific [place] 1.011 (1.000-1.030) Urine Protein Negative (Negative) Urine Glucose (UA) Negative (Negative) Urine Ketones Negative (Negative) Urine Blood Negative (Negative) Urine Nitrite Negative (Negative) Urine Bilirubin Negative (Negative) Urine Urobilinogen Negative (Negative) Ur Leukocyte Esterase Negative (Negative) Urine Comment Administered Medications Aspirin (Aspirin 81 Mg Ectab) 81 mg PO [facility] Stop: 10/20/25 08:59 Last Admin: 09/20/25 08:36 Dose: 81 mg Documented By: SARAVANAN Atorvastatin Calcium (Atorvastatin 40 Mg Tab) 40 mg PO [facility] Stop: 10/19/25 21:31 Last Admin: 09/20/25 21:24 Dose: 40 mg Documented By: Admin: 09/19/25 22:22 Dose: 40 mg Documented By: AZIZA Bisacodyl (Bisacodyl 5 Mg Tabec) 10 mg PO [facility] Stop: 10/19/25 21:31 Last Admin: 09/20/25 21:24 Dose: Not Given Documented By: Admin: 09/19/25 22:23 Dose: Not Given Documented By: AZIZA Ezetimibe (Ezetimibe 10 Mg Tab) 10 mg PO DAILY [facility] Stop: 10/20/25 08:59 Last Admin: 09/20/25 08:36 Dose: 10 mg Documented By: SARAVANAN Fexofenadine HCl (Fexofenadine Hcl 180 Mg Tab) 180 mg PO [facility] Stop: 10/20/25 08:59 Last Admin: 09/20/25 08:36 Dose: 180 mg Documented By: SARAVANAN Heparin Sodium (Porcine) (Heparin Sod 5,000 Unit/0.5 Ml Vial) 5,000 units SQ Q12 [facility] Stop: 10/19/25 21:31 Last Admin: 09/20/25 21:21 Dose: 5,000 units Documented By: Admin: 09/20/25 08:36 Dose: 5,000 units Documented By: Admin: 09/19/25 22:22 Dose: 5,000 units Documented By: AZIZA Isosorbide Mononitrate (Isosorbide [place] Extended Rel 30 Mg Tabcr) 30 mg PO [facility] Stop: 10/20/25 08:59 Last Admin: 09/20/25 08:36 Dose: 30 mg Documented By: SARAVANAN Lisinopril (Lisinopril 5 Mg Tab) 5 mg PO [facility] Stop: 10/20/25 08:59 Last Admin: 09/20/25 08:36 Dose: 5 mg Documented By: SARAVANAN Metoprolol Succinate (Metoprolol Succ 25mg Ext Rel Tab) 25 mg PO [facility] Stop: 10/19/25 21:31 Last Admin: 09/20/25 21:24 Dose: Not Given Documented By: Admin: 09/19/25 22:22 Dose: 25 mg Documented By: AZIZA Pantoprazole Sodium (Pantoprazole 40 Mg Tab) 40 mg PO [facility] Stop: 10/19/25 21:44 Last Admin: 09/20/25 21:24 Dose: 40 mg Documented By: Admin: 09/19/25 22:22 Dose: 40 mg Documented By: AZIZA Polyethylene Glycol (Polyethylene (Miralax) 17 Gm Pack) 17 gm PO DAILY PRN PRN Reason: Constipation Stop: 10/19/25 21:31 Last Admin: 09/20/25 21:24 Dose: 17 gm Documented By: Admin: 09/19/25 22:21 Dose: 17 gm Documented By: AZIZA Potassium Chloride (Potassium Chloride 10 Meq Tabcr) 10 meq PO QAM [facility] Stop: 10/20/25 08:59 Last Admin: 09/20/25 08:36 Dose: 10 meq Documented By: SARAVANAN Probenecid (Probenecid 500 Mg Tab) 500 mg PO BID [facility] Stop: 10/19/25 21:31 Last Admin: 09/20/25 21:24 Dose: 500 mg Documented By: Admin: 09/20/25 08:36 Dose: 500 mg Documented By: Admin: 09/19/25 22:22 Dose: 500 mg Documented By: AZIZA Ticagrelor (Ticagrelor 90 Mg Tab) 90 mg PO BID [facility] Stop: 10/19/25 21:31 Last Admin: 09/20/25 21:23 Dose: 90 mg Documented By: Admin: 09/20/25 08:36 Dose: 90 mg Documented By: Admin: 09/19/25 22:23 Dose: 90 mg Documented By: AZIZA Umeclidinium [place] (Umeclidinium [place] 62.5mcg/Blister 7 Puffs/Inhaler) 1 puffs INH DAILY [facility] Stop: 10/20/25 08:59 Last Admin: 09/20/25 08:37 Dose: 1 puffs Documented By: SARAVANAN Vitamin D (Cholecalciferol 25 Mcg (1000 Units) Tab) 50 mcg PO HS [facility] Stop: 10/19/25 21:31 Last Admin: 09/20/25 21:23 Dose: 50 mcg Documented By: Admin: 09/19/25 22:22 Dose: 50 mcg Documented By: AZIZA Discontinued Medications Furosemide (Furosemide 40 Mg/4 Ml Vial) 40 mg IV ONE ONE Stop: 09/19/25 16:04 Last Admin: 09/19/25 16:33 Dose: 40 mg Documented By: cortes Furosemide (Furosemide 40 Mg/4 Ml Vial) 40 mg IV ONE ONE Stop: 09/20/25 08:01 Last Admin: 09/20/25 08:36 Dose: 40 mg Documented By: SARAVANAN Imaging Data Radiologist's Impression: Chest X-Ray 09/19/25 14:20 XR chest 2V PA/lateral HISTORY: 70 years-old Male Chest pain, nonspecific COMPARISON: 03/02/2025 TECHNIQUE: PA and lateral views of the chest FINDINGS: Cardiac silhouette is enlarged. Median sternotomy wires are present. Left subclavian pacer. Pulmonary vascular congestion with interstitial coarsening. Chronic right hemidiaphragm elevation. Layering right pleural effusion with right basilar and mid lung predominant consolidation which has progressed from prior. Surgical clips of the upper abdomen. Degenerative changes of the shoulders and spine. IMPRESSION: 1. Cardiomegaly with pulmonary edema. 2. Right pleural effusion with right mid lung and right basilar consolidation, progressed from prior. 3. Chronic right hemidiaphragmatic elevation. ACT 112: Negative or not required by law. The above report was generated using voice recognition software. It may contain grammatical, syntax or spelling errors. Electronically signed by: Benson Ayoub M.D. 09/19/2025 3:54 PM Discharge Plan Visit Data Chief Complaint: Cardiac Assessment Stated Complaint: CARDIAC WORK UP, REFERRED BY DOC ED Provider: Charli Wu ED Midlevel Provider: Francesca Jalloh Discharge Problem: Exertional dyspnea, Congestive heart failure Patient Disposition: Admitted As Inpatient Condition: Good Discharge Instructions Interventions: ED Discharge Assessment Last Done: 09/19/25 21:10 Discharge Problem: Congestive heart failure Qualifiers: Heart failure type: unspecified Heart failure chronicity: chronic Qualified Code(s): I50.9 - Heart failure, unspecified
[2025-09-19 14:45] LABS: Appearance Urine Clear (Clear); Glucose Urine UA Negative (Negative)
[2025-09-19 14:50] LABS: Hematocrit (blood only) 33.5 % (42.0-52.0); Hemoglobin 11.2 g/dL (14.0-18.0); Immature Granulocytes # (auto) 0.01 K/uL (0.01-0.20); Immature Granulocytes % (auto) 0.1 %; Mean Corpuscular Hemoglobin 30.8 pg (25.0-34.0); Mean Corpuscular Volume 92.0 fL (80.0-100.0); Platelet Count 331 K/uL (130-400); RDW Standard Deviation 62.4 fL (36.4-46.3); Red Blood Count 3.64 M/uL (4.70-6.10); White Blood Count 7.14 K/ul (4.8-10.8)
[2025-09-19 15:04] LABS: Alanine Aminotransferase 17.0 U/L (7-52); Albumin Globulin Ratio 0.6 (0.9-2); Albumin Level 3.5 gm/dl (3.4-5.0); Alkaline Phosphatase 118.0 U/L (34-104); Anion Gap 9.0 (3-11); Bilirubin,Total 0.9 mg/dl (0.2-1.0); Blood Urea Nitrogen 35.0 mg/dl (6-23); Calcium 9.4 mg/dl (8.6-10.3); Carbon Dioxide 29.0 mmol/L (21-32); Chloride 98.0 mmol/L (98-107); Creatinine Clr Calc Pharmacy 47.8 ml/min; Globulin 5.7 gm/dl (2.5-4.0); Glucose 118.0 mg/dl (70-99(Fasting)); Lipase 59.0 U/L (11-82); Potassium 4.3 mmol/L (3.5-5.1); Sodium 136.0 mmol/L (136-145); Total Protein 9.2 gm/dl (6.0-8.3)
--- NOTE | 2025-09-19 15:23 | Emergency Department Note ---
ED Visit Note I had a meaningful discussion with the PA regarding patient. Though I did not see the patient face to face, I personally approved and/or made the documented management plan and acknowledge risk and complications. .
[2025-09-19 15:35] LABS: INR 1.2 (0.9-1.1); Partial Thromboplastin Time 25 Seconds (21-31); Prothrombin Time 12.7 Seconds (9.0-12.0)
--- NOTE | 2025-09-19 15:55 | XRay Report ---
XR chest 2V PA/lateral HISTORY: 70 years-old Male Chest pain, nonspecific COMPARISON: 03/02/2025 TECHNIQUE: PA and lateral views of the chest FINDINGS: Cardiac silhouette is enlarged. Median sternotomy wires are present. Left subclavian pacer. Pulmonary vascular congestion with interstitial coarsening. Chronic right hemidiaphragm elevation. Layering ri ght pleural effusion with right basilar and mid lung predominant consolidation which has progressed f rom prior. Surgical clips of the upper abdomen. Degenerative changes of the shoulders and spine. IMPRESSION: 1. Cardiomegaly with pulmonary edema. 2. Right pleural effusion with right mid lung and right basilar consolidation, progressed from prior. 3. Chronic right hemidiaphragmatic elevation. ACT 112: Negative or not required by law. The above report was generated using voice recognition software. It may contain grammatical, syntax o r spelling errors. Electronically signed by: Benson Ayoub M.D. 09/19/2025 3:54 PM
--- NOTE | 2025-09-19 16:17 | History & Physical Report ---
Date of Service September 19, 2025 Assessment & Plan (1) Acute on chronic heart failure with preserved ejection fraction (HFpEF): (2) Chronic pleural effusion: (3) CAD (coronary artery disease): (4) Atrial fibrillation: (5) Asthma: (6) Chronic kidney disease: Plan 70 year old male with PMH significant for hyperlipidemia, chronic respiratory failure with hypoxia, moderate persistent asthma, chronic pleural effusion, CAD s/p stent (2024) and history of CABG (2015), aortic stenosis s/p AVR (2015), atrial fibrillation, history of symptomatic junctional bradycardia s/p DCP (February 2025), hypertension, atrial fibrillation, HFpEF, CKD IIIa, Hodgkin lymphoma s/p radiation, JIM on CPAP, MGUS who presents to the ED on 09/19/2025 with SOB. Patient was referred by his PCP due to LE edema, increased weight, and O2 sat of 80% while exerting in the office. Acute on chronic HFpEF Chronic pleural effusion Follows with [facility] Patient presenting with worsening exertional SOB over the last month, recent weight gain of 5lbs and worsening LE edema No improvement in symptoms despite med changes two weeks ago (doubled torsemide, decreased metoprolol, added imdur) CXR revealed pulmonary edema and progressive chronic right pleural effusion BNP 292 (improved from 959 outpatient on 09/06) Troponin negative and EKG without signs of ischemia TTE in Nov 2024 revealed moderate LVH, EF 65-70%, normal gradient bioprosthetic aortic valve without AR, moderate TR, pulmonary hypertension Scheduled for outpatient stress echo on 09/27 Received 40mg IV lasix in ED Plan: -Obtain CT chest for better visualization of right lung -Obtain LLE doppler -IV lasix 40mg in am x1 then re-evaluate fluid status -Daily weights and measure I&Os -Continue lisinopril, metoprolol, Imdur -Cardiology consult: appreciate recs -NPO at midnight for possible inpatient stress echo Asthma Follows with [facility] Pulmonology Patient does not feel he is in exacerbation Continue inhalers Xopenex PRN due to tachycardia CAD s/p stent (2024) and history of CABG (2015) Hyperlipidemia Continue baby aspirin, Brilinta, atorvastatin, ezetimbe Atrial fibrillation History of bradycardia s/p DCP PM interrogated in ED Continue metoprolol CKD Creat 1.61 on admission Baseline appears to be around 1.5 Avoid nephrotoxic agents as able Monitor renal function JIM CPAP HS DVT Prophylaxis: SQ Heparin Code Status: DNR/DNI - As per discussion at bedside with the patient. PCP: Chelle Vasquez Disposition: admit to Patient seen in collaboration with Dr. Shankar. Please see addendum. I spent a total of 70 minutes coordinating, documenting and providing care for this patient excluding time spent in the performance of separately billed services or time spent by another provider/QHP. Admission and Anticipated Discharge Date Admission Date: September 19, 2025 History of Present Illness Chief Complaint: SOB Primary Care Provider: Chelle Vasquez, 70 year old male with PMH significant for hyperlipidemia, chronic respiratory failure with hypoxia, moderate persistent asthma, chronic pleural effusion, CAD s/p stent (2024) and history of CABG (2015), aortic stenosis s/p AVR (2015), atrial fibrillation, history of symptomatic junctional bradycardia s/p DCP (February 2025), hypertension, atrial fibrillation, HFpEF, CKD IIIa, Hodgkin lymphoma s/p radiation, JIM on CPAP, MGUS who presents to the ED on 09/19/2025 with SOB. Patient was referred by his PCP due to LE edema, increased weight, and O2 sat of 80% while exerting in the office. Patient reports that he has had a lifetime of exertional SOB, but has noticed an acute worsening over the last month. He reports a flu like illness in July that he feels he never recovered from. He finds himself getting extremely short of breath to the point where he needs to stop activity and take deep breaths to get enough air in. This occurs with simple activity such as walking to his car or up a flight of steps. It improves with rest for the most part and he also notes a possible improvement if he uses albuterol. He has been evaluated by his [employer] for this and recently increased torsemide, started imdur, and decreased metoprolol. He has not noticed any improvement in his symptoms since these changes. He is scheduled for an outpatient stress test next week. He also notes slightly higher weight that isn't coming down. Today he was 217lb where his baseline is usually around 212lbs. He has also noticed a pain between his shoulder pains that tends to occur at the end of the day when he is tired. He follows a chiropractor who notes abnormal muscle structure in his back and he admits that he has poor posture. He has been using his inhalers daily since the recent change in weather and does not feel that he is in an acute asthma exacerbation. Allergies Allergy/AdvReac Type Severity Reaction Status Date / Time mold Allergy Unknown Verified 03/02/25 10:32 pollen extracts Allergy Unknown Verified 03/02/25 10:32 allopurinol AdvReac Itching Verified 03/02/25 10:32 Home Medications Medication Instructions Recorded Confirmed Type fexofenadine 180 mg tablet 180 mg PO QAM 07/05/19 09/19/25 History cholecalciferol (vitamin D3) 25 2,000 unit PO HS 01/06/23 09/19/25 History mcg (1,000 unit) capsule tramadol 50 mg tablet 50 mg PO Q6H PRN pain #60 tabs 09/22/23 09/19/25 Rx albuterol sulfate 2.5 mg/3 mL 2.5 mg continuous nebulization BID 12/08/24 09/19/25 History (0.083 %) solution for nebulization PRN Other albuterol sulfate 90 mcg/actuation 2 puff inhalation .Q4-6H PRN 12/08/24 09/19/25 History aerosol inhaler Shortness Of Breath Or Wheezing aspirin 81 mg tablet,delayed 81 mg PO QAM 12/08/24 09/19/25 History release atorvastatin 40 mg tablet 40 mg PO HS 12/08/24 09/19/25 History budesonide 1 mg/2 mL suspension 1 mg inhalation .UD PRN Other 12/08/24 09/19/25 History for nebulization ezetimibe 10 mg tablet 10 mg PO DAILY 12/08/24 09/19/25 History lisinopril 5 mg tablet 5 mg PO QAM 12/08/24 09/19/25 History nitroglycerin 0.4 mg sublingual 0.4 mg sublingual .Q5MIN X3 PRN 12/08/24 09/19/25 History tablet Chest Pain omeprazole 20 mg capsule,delayed 20 mg PO HS 12/08/24 09/19/25 History release probenecid 500 mg tablet 500 mg PO BID 12/08/24 09/19/25 History torsemide 20 mg tablet 20 mg PO QAM 12/08/24 09/19/25 History ticagrelor 90 mg tablet (Brilinta) 90 mg PO BID 03/02/25 09/19/25 History isosorbide mononitrate 30 mg 30 mg PO QAM 09/19/25 09/19/25 History tablet,extended release 24 hr metoprolol succinate 25 mg 25 mg PO HS 09/19/25 09/19/25 History tablet,extended release 24 hr potassium chloride 10 mEq 10 meq PO QAM 09/19/25 09/19/25 History tablet,extended release umeclidinium 62.5 mcg/actuation 1 inh inhalation DAILY 09/19/25 09/19/25 History blister powder for inhalation (Incruse Ellipta) Past Med/Surg History Problem List (Updated 09/19/25 @ 16:29 by GILBERTO Morales) Asthma Chronic pleural effusion Acute on chronic heart failure with preserved ejection fraction (HFpEF) Second degree AV block, Mobitz type I NSTEMI (non-ST elevated myocardial infarction) Symptomatic bradycardia (Acute) Hypotension, unspecified Prediabetes Exertional hypotension CAD (coronary artery disease) BPH (benign prostatic hyperplasia) Chronic kidney disease Allergic rhinitis (Chronic) Chronic asthmatic bronchitis (Chronic) Esophageal reflux (Chronic) Gout (Chronic) HTN, goal below 140/90 (Chronic) Hyperlipidemia (Chronic) Left ventricular diastolic dysfunction (Chronic) Left ventricular hypertrophy (Chronic) Low testosterone (Chronic) Mild tricuspid regurgitation (Chronic) Paralyzed hemidiaphragm (Chronic) Paroxysmal atrial fibrillation (Chronic) Rosacea (Chronic) S/P CABG (coronary artery bypass graft) (Chronic) S/P aortic valve replacement (Chronic) Pleural effusion on right (Chronic) Anemia (Chronic) Atrial fibrillation Medical History History of Hodgkin's disease Cataract Surgical History Stented coronary artery RCA S/P cataract surgery History of aortic valve replacement Hx of CABG History of radiation therapy History of hernia repair History of splenectomy History of pulmonic valve repair Family History Father Myocardial infarction Hx of CABG Mother Hypertension Pure hypercholesterolemia Brother Diabetes Hypertension Unknown Prostate cancer Colorectal cancer Myocardial infarction Grandfather Prostate cancer Grandfather Colorectal cancer Denies family history of Ovarian cancer Breast cancer Social History Smoking Status: Never smoker Second Hand Exposure: No; Do You Dip or Chew Tobacco: No; Hx Alcohol Use: No Hx Substance Use: No Preferred Language: Croatian Communication Ability: Effective Visual Impairment: No Limitations Hearing Ability: Normal Frit Burner Required: No Beliefs That Will Affect Care: None marital status: Current Living Situation: Alone and Spouse Current Living Situation Comment: son current occupational status: retired current occupation: Retired Feels Safe at Home: Yes Childhood Exposure to Second-Hand Smoke: No Diet: regular Diet Comment: regular Dental Care, Regularly: Yes Physical Activity Frequency: 1-2 Times per Week Seatbelt Use: always Sunscreen Use: Yes (sometimes ) Assistive Devices: None Review of Systems Review of Systems: All systems reviewed & are unremarkable except as noted in HPI & below Physical Exam Physical Exam: Refer to exam by Dr. Shankar Results & Data Results & Data Vital Signs (Past 12 Hours) Vital Signs Temp Pulse Resp BP Pulse Ox O2 Del Method 09/19/25 14:32 91 H 09/19/25 14:20 98 09/19/25 13:55 36.6 C 96 H 19 152/96 H 95 Room Air Laboratory Results Short CBC 09/19/25 Range/Units 14:30 WBC 7.14 (4.8-10.8) K/ul Hgb 11.2 L (14.0-18.0) g/dL Hct 33.5 L (42.0-52.0) % Plt Count 331 (130-400) K/uL BMP 09/19/25 14:30 Sodium 136 Potassium 4.3 Chloride 98 Carbon Dioxide 29 BUN 35 H Creatinine 1.61 H Glucose 118 H Calcium 9.4 Liver Function 09/19/25 Range/Units 14:30 Total Bilirubin 0.9 (0.2-1.0) mg/dl AST 26 (13-39) U/L ALT 17 (7-52) U/L Alkaline Phosphatase 118 H (34-104) U/L Albumin 3.5 (3.4-5.0) gm/dl Urine 09/19/25 Range/Units 14:30 Urine Color Yellow Urine Appearance Clear (Clear) Urine pH 5.5 (4.5-7.5) Ur Specific [place] 1.011 (1.000-1.030) Urine Protein Negative (Negative) Urine Glucose (UA) Negative (Negative) I have independently reviewed and interpreted patient's admitting labs including CBC, CMP, PTT, PT/INR, mag, troponin, BNP, lipase Diagnostic Findings Chest X-Ray 09/19/25 14:20 XR chest 2V PA/lateral HISTORY: 70 years-old Male Chest pain, nonspecific COMPARISON: 03/02/2025 TECHNIQUE: PA and lateral views of the chest FINDINGS: Cardiac silhouette is enlarged. Median sternotomy wires are present. Left subc lavian pacer. Pulmonary vascular congestion with interstitial coarsening. Chronic right hemidiaphragm elevation. Layering right pleural effusion with right basilar and mid lung predominant consolidation which has progressed from prior. Surgical clips of the upper abdomen. Degenerative changes of the shoulders and spine. IMPRESSION: 1. Cardiomegaly with pulmonary edema. 2. Right pleural effusion with right mid lung and right basilar consolidation, progressed from prior. 3. Chronic right hemidiaphragmatic elevation. ACT 112: Negative or not required by law. The above report was generated using voice recognition software. It may contain grammatical, syntax or spelling errors. Electronically signed by: Benson Ayoub M.D. 09/19/2025 3:54 PM ECG Additional Comments: I have independently reviewed and interpreted patient's admitting EKG which revealed: sinus rhythm with 1st degree AV block at a rate of 92bpm Code Status & VTE Plan Code Status DNR/DNI Supervising Physician Co-Signing Physician Notes I have seen and discussed the case with the collaborating advanced practitioner. I agree with the above H&P. I have reviewed and confirmed the patients medical history, the findings on physical examination, and the patients diagnosis and treatment plan with Sarah MACIAS and agree with the information documented. Evaluated patient at bedside. Reports chronic SOB on exertion, which has progressed over the course of a month. Patient with hypoxia at PCP office with noted weight gain and leg swelling.Patient states that in these exertional moments he is usually hypotensive and with a lower heart rate. He denies that his respiratory symptoms around this time of year are any worse, in fact he thinks he has been having good days recently in regards to asthma/allergies. He states that he didnt note much increase in urine output with the increase in torsemide. Exam notable for scattered wheezing, diminished in right base, tachycardic but regular rhythm, noted atrophy of right musculature in RUE/neck 2/2 prior radiation/procedures, AxO4, BLE pitting edema 2+, circumfrentially larger and slight erythema of LLE noted, small scabbed well healing wound on LLE, does not appear to have drainage/erythema/pain #KUHN #Acute on chronic HFpEF #CAD s/p CABG and recent PCI with [facility] in 2024 suspicious for cardiac eitology v resp based on description of symptoms continue with IV lasix 40mg in am monitor volume status closely, with IOs and daily weights continue dinailinta noted to have ordered stress test as OP, will make NPO as patient hospitalized for symptoms prompting this test resume home meds Cards consult #asthma patient on room air and does not appear to be in exacerbation xopenex while admitted given baseline elevation of HR continue home meds rest of plans as above I spent a total of 25 minutes coordinating, documenting, and providing care for this patient excluding time spent in the performance of separately billed services. All of the aforementioned completed outside of collaborating with the assigned advanced practitioner for a full treatment plan. I have reviewed the advanced practitioner's documentation, and I agree with, and take responsibility for the plan of care
[2025-09-19] MEDS: FUROSEMIDE 40 MG/4 ML VIAL IV ONE (16:33)
--- NOTE | 2025-09-19 17:58 | CT Scan Report ---
CT CHEST WITHOUT CONTRAST: HISTORY: Shortness of breath TECHNIQUE: CT of the chest was obtained without intravenous contrast. Coronal and sagittal reformats were created. COMPARISON: Thoracic CT 2016. Chest radiograph March 02, 2025 FINDINGS: LOWER NECK: Normal thyroid. LYMPH NODES: A few small nonenlarged lymph nodes in the mediastinum. No lymphadenopathy by size criteria. Mildly patulous esophagus CARDIOVASCULAR: Cardiac size is stably enlarged with redemonstrated AVR and CABG changes. Coronary artery and valvular calcifications are noted. No aortic aneurysm. Extensive atherosclerosis of the thoracic aorta LUNGS: The trachea and central bronchi are widely patent. Mild interstitial pulmonary edema. There is a rounded right infrahilar density. Scarring of the left upper lobe redemonstrated. PLEURA: Moderate right and small left pleural fluids. There is mild thickening of the pleural rind surrounding the right pleural fluid. There is no pneumothorax. UPPER ABDOMEN: Enlarged liver that is cirrhotic. Small perihepatic ascites. Cholelithiasis without evidence of cholecystitis. Embolization materials in the upper abdomen redemonstrated. OSSEOUS STRUCTURES: No acute findings IMPRESSION: Moderate right and small left pleural fluids There is a mild thickening of the pleural rind surrounding the right pleural fluid. This may be due to longstanding nature of this pleural fluid. In a proper clinical context, superimposed infection/empyema are not excluded. Rounded right infrahilar pulmonary density is probably a rounded atelectasis. Difficult to exclude pneumonia or neoplastic mass lesion. Recommend surveillance thoracic CT in 3 months for reassessment. Electronically signed by London Schuler 09-19-2025 5:57 PM
--- NOTE | 2025-09-19 18:09 | Ultrasound Report ---
Clinical History: Swelling Technique: Venous ultrasound evaluation was performed utilizing grayscale, color Doppler and wave form evaluation. Images were also obtained with and without compression Findings: The left common femoral, superficial femoral, popliteal, and visualized calf veins demonstrate normal anechoic lumens with full compressibility. Normal flow is seen on color Doppler images. Expected waveforms were produced with augmentation maneuvers Impression: No evidence of left leg deep venous thrombosis Electronically signed by Lars Cortes 09-19-2025 6:09 PM
[2025-09-19] MEDS ORDERED: ONDANSETRON INJ 2 MG/ML 2 ML VIAL IV PRN (21:32)
[2025-09-19] MEDS ORDERED: ACETAMINOPHEN 325 MG TAB PO PRN (21:32)
[2025-09-19] MEDS ORDERED: AMMONIUM LACTATE 12% LOTION 225 GM BTL EXT PRN (21:32)
[2025-09-19] MEDS ORDERED: BUDESONIDE 0.5 MG/2 ML VIAL (PULMICORT) INH PRN (21:35)
[2025-09-19] MEDS: POLYETHYLENE (MIRALAX) 17 GM PACK PO PRN (22:21)
[2025-09-19] MEDS: HEPARIN SOD 5,000 UNIT/0.5 ML VIAL SQ SCH (22:22)
[2025-09-19] MEDS: METOPROLOL SUCC 25MG EXT REL TAB PO SCH (22:22)
[2025-09-19] MEDS: CHOLECALCIFEROL 25 MCG (1000 UNITS) TAB PO SCH (22:22)
[2025-09-19] MEDS: PROBENECID 500 MG TAB PO SCH (22:22)
[2025-09-19] MEDS: ATORVASTATIN 40 MG TAB PO SCH (22:22)
[2025-09-19] MEDS: TICAGRELOR 90 MG TAB PO SCH (22:23)
[2025-09-20 06:18] LABS: Hematocrit (blood only) 30.6 % (42.0-52.0); Hemoglobin 10.5 g/dL (14.0-18.0); Mean Corpuscular Hemoglobin 30.9 pg (25.0-34.0); Mean Corpuscular Volume 90.0 fL (80.0-100.0); Platelet Count 310 K/uL (130-400); RDW Standard Deviation 58.5 fL (36.4-46.3); Red Blood Count 3.40 M/uL (4.70-6.10); White Blood Count 6.06 K/ul (4.8-10.8)
[2025-09-20 06:47] LABS: Anion Gap 6.0 (3-11); Blood Urea Nitrogen 32.0 mg/dl (6-23); Calcium 9.0 mg/dl (8.6-10.3); Carbon Dioxide 31.0 mmol/L (21-32); Chloride 102.0 mmol/L (98-107); Creatinine Clr Calc Pharmacy 49.5 ml/min; Glucose 90.0 mg/dl (70-99(Fasting)); Magnesium 2.1 mg/dl (1.7-2.4); Potassium 3.8 mmol/L (3.5-5.1); Sodium 139.0 mmol/L (136-145)
--- NOTE | 2025-09-20 08:33 | Cardiology Consultation ---
Date of Consultation September 20, 2025 Assessment & Plan (1) Acute on chronic heart failure with preserved ejection fraction (HFpEF): (2) Chronic pleural effusion: (3) CAD (coronary artery disease): (4) S/P CABG (coronary artery bypass graft): (5) S/P aortic valve replacement: Plan Assessment: 70 year old medically complex male presents upon recommendation from PCP for several weeks of worsening dyspnea on exertion, weight gain and lower extremity edema despite OP medication adjustments. Patient currently slated for OP nuclear stress test 09/27/2025 given his history and symptoms. Cardiology consulted for further evaluation and recommendations. Plan: 1. Acute on chronic Heart failure with preserved ejection fraction -Patient with several weeks of progressively worsening dyspnea, quick weight gain and B/L lower extremity edema. -Received Lasix 40mg IV x1 dose in the ER last night and an additional 40mg IV x1 dose this morning. Renal function stable. Diuresing well. -Patient appears hypervolemic on exam -Right lung field is very diminished on auscultation consistent with a moderate pleural effusion. This effusion appears be chronic although imaging shows likely interval increase. Will review studies with Dr. Prince. -Strict I&O, daily weights with a standing scale -Close monitoring of serum renal function and electrolytes. Goal Serum K> 4.0 and Serum Mag > 2.0. -Will plan to give patient lasix 40mg IV x1 dose in AM -May have a cardiac prudent diet at this time. less than 2000mg sodium -Obtain resting echocardiogram to assess overall structure and function. -Review of device interrogation shows normal function, no events or alarms. -Continue Toprol xl 25mg PO HS, Lisinopril 5mg PO QAM as part of HF regimen. 2. Chronic pleural effusion -Long standing per review of records this has been discussed since at least 2015 when patient is was to undergo his CABG and AVR -Patient follows with Dr. Rodriguez in outpatient pulmonology that made note of the chronic effusion with recommendation to not pursue thoracentesis. -Obtain resting echocardiogram to assess overall structure and function -Give lasix 40mg x1 dose in the AM 3. CAD 4. S/p CABG (2016 2 vessel; history of layered stents to Proximal RCA --most recent intervention was 11/2024) 5. History of AVR 6. History of SSS/syncope--presence of a PPM -Patient with known complex CAD as outlined in most recent cardiac cath report dated 11/2024 -Currently scheduled for an OP nuclear stress test on 09/27/2025 -Will work to diurese patient as hypervolemia is an attributing factor for his symptoms. -Continue GDMT with ASA 81mg, Atorvastatin, zetia, Imdur, Lisinopril, Brilinta, Toprol xl as per current regimen. patient is to remain on DAPT with ASA and Brilinta indefinitely due to history of layered stent Case has been discussed with Dr. Prince. Further recommendations regarding plan of care as per his assessment. I spent a total of 50 minutes on the date of service in preparation, delivery, documentation of the care provided to the patient excluding any time spent in the performance of separately billed services. GILBERTO Guillen [facility] Cardiology [facility] Supervising Physician Co-Signing Physician Notes Attending attestation: Case reviewed with the advanced practitioner. I have personally performed a history and physical examination on the patient. I have reviewed the advanced practitioner's documentation on the date of service referenced in note, and I agree with, and take responsibility for the plan of care. Subjective: Patient describes having had a flulike illness onset around July 13, 2025 with symptoms of cough nasal and congestion. The symptoms subsequently improved however the patient has noted progressive shortness of breath in the in terim time.. Some symptoms are reminiscent of the symptoms that prompted his right coronary artery stent in November 2024 such as occasional pain between his shoulder blades. He also notes a sensation of feeling short of breath when he tries to lie supine with his CPAP. He has not had any issues with recurrent syncope since his pacemaker was implanted. Exam: Cardiovascular: Regular rhythm, 1/6 systolic murmur, no edema Pulmonary: Decreased breath sounds throughout the right lower and mid lung mcgrath, coarse breath sounds noted throughout the apices bilaterally Data: EKG performed 09/19/2025 at 1415 and interpreted independently revealed sinus rhythm at 92 bpm with first-degree AV block, no significant repolarization abnormalities Remote pacemaker interrogation 09/19/25 revealed normal generator longevity estimated to be at 7.2 to 10.6 years. Lead impedance is stable. Patient atrial paced 4.4% of the time ventricular paced 1.7% of the time no recent atrial fibrillation episodes Impression/ Plan: Shortness of breath with exertion At least right pleural effusion History of CAD, CABG x 2 2015 , SVG-LAD and SVG-OM2, Bio AVR, WEST to RCA in 03/2024 , then WEST to RCA 11/2024 in setting of stent thrombosis (transitioned from clopidogrel to Brilinta at that time) Histor of Hodgkin's Lymphoma with chest radiation in 1074 at the age of 20, followed by MOP chemotherapy in 1982 -I have concerns symptoms may be related to HFpEF , although underlying ischemia certainly a consideration. -Reviewed prior records in detail. -Patient has had a chronic right pleural effusion since after his CABG in 2015. Per my review of serial chest X-rays his has increased in size and is at least moderate in size. -He had a CT chest and pulmonary consult, then attempt at IR guided thoracentes is at [facility] in March, (shortly before his cardiac cath) which was a dry tap. -He had been seen in follow up by [facility] pulmonary and patient describes that consideration of referral to thoracic surgery for VATS delayed due to the need for the RCA stents and need for dual antiplatelet therapy. 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 -Update Echo. -For now , he is scheduled for an outpatient nuclear stress test. Will keep this appointment for now, pending further treatment. 80 minutes spent by the undersigned in direct patient care including record review. Kenneth Prince DO History of Present Illness Reason for Consultation: exertional shortness of breath Requesting Physician: Dr. Tompkins, [facility] hospitalist Attending Physician: Kieran Tompkins MD History of Present Illness HPI: Patient is a 70 year old male with PMHx as outlined below that presents to the ER with shortness of breath. Patient had been seen by his PCP and referred to the ER for increase in lower extremity edema, increased weights and a SPO2 of 80% when ambulating in the office. Of note, patient was recently seen by cardiology (GILBERTO Barnes/Dr. Hough) 09/06/25 reporting that after returning from travel in July when he developed URI symptoms. He reported that even though his acute congestion symptoms had resolved that his breathing had not returned to baseline, and that he seems to be "playing out quicker". Pacer device check was completed showing stable function, he was recommended for labs and to be considered for a nuclear stress test (currently scheduled for 09/27/25 at [facility]). Further communications in [facility] show that patient was started on Imdur, and started on Torsemide 40mg PO Daily as of 09/12/2025. Upon seeing patient today in examination he is sitting up feeling improvement in his breathing. Admits that he hasn't ambulated other then to the restroom and back. Denies chest pain, or pressure. Endorses some chronic upper back tightness which he attributes to being musculo-skeletal. Not new, not worse. Endorses lower extremity edema, left always worse then right and this has been worse overall over the past week. He is diligent about checking his morning weights and has noted a 7-8lb weight gain over the past 1.5 weeks. 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 EKG on admission SR with 1st degree AVB Chest xray IMPRESSION: 1. Cardiomegaly with pulmonary edema. 2. Right pleural effusion with right mid lung and right basilar consolidation, progressed from prior. 3. Chronic right hemidiaphragmatic elevation. Chest CT: IMPRESSION: Moderate right and small left pleural fluids There is a mild thickening of the pleural rind surrounding the right pleural fluid. This may be due to longstanding nature of this pleural fluid. In a proper clinical context, superimposed infection/empyema are not excluded. Rounded right infrahilar pulmonary density is probably a rounded atelectasis. Difficult to exclude pneumonia or neoplastic mass lesion. Recommend surveillance thoracic CT in 3 months for reassessment. BNP 292 Troponin negative x2 Review of telemetry shows SR rates 80's, no acute events overnight. Allergies Allergy/AdvReac Type Severity Reaction Status Date / Time mold Allergy Unknown Verified 03/02/25 10:32 pollen extracts Allergy Unknown Verified 03/02/25 10:32 allopurinol AdvReac Itching Verified 03/02/25 10:32 Home Medications Medication Instructions Recorded Confirmed Type fexofenadine 180 mg tablet 180 mg PO QAM 07/05/19 09/19/25 History cholecalciferol (vitamin D3) 25 2,000 unit PO HS 01/06/23 09/19/25 History mcg (1,000 unit) capsule tramadol 50 mg tablet 50 mg PO Q6H PRN pain #60 tabs 09/22/23 09/19/25 Rx albuterol sulfate 2.5 mg/3 mL 2.5 mg continuous nebulization BID 12/08/24 09/19/25 History (0.083 %) solution for nebulization PRN Other albuterol sulfate 90 mcg/actuation 2 puff inhalation .Q4-6H PRN 12/08/24 09/19/25 History aerosol inhaler Shortness Of Breath Or Wheezing aspirin 81 mg tablet,delayed 81 mg PO QAM 12/08/24 09/19/25 History release atorvastatin 40 mg tablet 40 mg PO HS 12/08/24 09/19/25 History budesonide 1 mg/2 mL suspension 1 mg inhalation .UD PRN Other 12/08/24 09/19/25 History for nebulization ezetimibe 10 mg tablet 10 mg PO DAILY 12/08/24 09/19/25 History lisinopril 5 mg tablet 5 mg PO QAM 12/08/24 09/19/25 History nitroglycerin 0.4 mg sublingual 0.4 mg sublingual .Q5MIN X3 PRN 12/08/24 09/19/25 History tablet Chest Pain omeprazole 20 mg capsule,delayed 20 mg PO HS 12/08/24 09/19/25 History release probenecid 500 mg tablet 500 mg PO BID 12/08/24 09/19/25 History torsemide 20 mg tablet 20 mg PO QAM 12/08/24 09/19/25 History ticagrelor 90 mg tablet (Brilinta) 90 mg PO BID 03/02/25 09/19/25 History isosorbide mononitrate 30 mg 30 mg PO QAM 09/19/25 09/19/25 History tablet,extended release 24 hr metoprolol succinate 25 mg 25 mg PO HS 09/19/25 09/19/25 History tablet,extended release 24 hr potassium chloride 10 mEq 10 meq PO QAM 09/19/25 09/19/25 History tablet,extended release umeclidinium 62.5 mcg/actuation 1 inh inhalation DAILY 09/19/25 09/19/25 History blister powder for inhalation (Incruse Ellipta) Patient History Medical History History of Hodgkin's disease Cataract Surgical History Stented coronary artery RCA S/P cataract surgery History of aortic valve replacement Hx of CABG History of radiation therapy History of hernia repair History of splenectomy History of pulmonic valve repair Family History Father Myocardial infarction Hx of CABG Mother Hypertension Pure hypercholesterolemia Brother Diabetes Hypertension Unknown Prostate cancer Colorectal cancer Myocardial infarction Grandfather Prostate cancer Grandfather Colorectal cancer Denies family history of Ovarian cancer Breast cancer Social History Smoking Status: Never smoker Second Hand Exposure: No; Do You Dip or Chew Tobacco: No; Hx Alcohol Use: Yes Alcohol type: wine Alcohol Intake Frequency: 4 or More x per/Week Hx Substance Use: No Preferred Language: Bulgarian Communication Ability: Effective Visual Impairment: No Limitations Hearing Ability: Normal Media Services Coordinator Required: No Beliefs That Will Affect Care: None marital status: Current Living Situation: Family Current Living Situation Comment: & adult son current occupational status: retired current occupation: Retired Other Information That Helps Us Care for You: No Feels Safe at Home: Yes Safety Concerns: Feels Safe At This Time Childhood Exposure to Second-Hand Smoke: No Diet: regular Diet Comment: regular Dental Care, Regularly: Yes Physical Activity Frequency: 1-2 Times per Week Seatbelt Use: always Sunscreen Use: Yes (sometimes ) Assistive Devices: CPAP and Oxygen - at Night Review of Systems Review of Systems: All systems reviewed & are unremarkable except as noted in HPI & below Physical Exam Constitutional: well developed and well nourished; no acute distress and not ill appearing Neck: normal visual inspection and trachea midline Respiratory: normal respiratory effort and + cough (dry); no respiratory distress and no labored breathing Auscultation: + diminished lung sounds (Right middle and lower lobe diminished); no crackles, no rales, no rhonchi and no wheezes Cardiovascular: Rate/Rhythm: regular rate and regular rhythm Heart Sounds: normal S1 and normal S2; no murmur Vessels: dorsalis pedis pulses present; no JVD Extremities: + edema (+1 BLE, left worse then right (chronic) ) Skin: no rashes, warm and dry Psychiatric: A+Ox3, euthymic affect Results & Data Vital Signs (Past 12 Hours) Vital Signs Temp Pulse Pulse Resp BP Pulse Ox O2 Del Method 09/20/25 07:52 36.3 C L 81 20 111/75 98 Nasal Cannula 09/20/25 07:36 83 09/20/25 02:58 36.4 C L 87 18 96/61 L 93 Room Air 09/19/25 23:24 98 H 25 H 92 09/19/25 21:32 97 H 09/19/25 21:24 Room Air, CPAP 09/19/25 21:24 36.6 C 88 18 139/84 94 Room Air O2 Flow Rate FiO2 09/20/25 07:52 2 09/20/25 07:36 09/20/25 02:58 09/19/25 23:24 21 09/19/25 21:32 09/19/25 21:24 09/19/25 21:24 Laboratory Results Cardiac Enzymes 09/19/25 Range/Units 14:30 AST 26 (13-39) U/L Troponin I High Sens 7.0 (0-20) pg/ml B-Natriuretic Peptide 292 H (0-100) pg/ml Coagulation 09/19/25 Range/Units 14:30 PT 12.7 H (9.0-12.0) Seconds APTT 25 (21-31) Seconds B-Natriuretic Peptide 292 H (0-100) pg/ml CBC 09/19/25 09/20/25 Range/Units 14:30 05:55 WBC 7.14 6.06 (4.8-10.8) K/ul RBC 3.64 L 3.40 L (4.70-6.10) M/uL Hgb 11.2 L 10.5 L (14.0-18.0) g/dL Hct 33.5 L 30.6 L (42.0-52.0) % Plt Count 331 310 (130-400) K/uL Neut # (Auto) 5.01 (1.40-6.50) K/uL Lymph # (Auto) 0.98 L (1.20-3.40) K/uL Ripley # (Auto) 0.87 H (0.11-0.59) K/uL Eos # (Auto) 0.23 (0.00-0.50) K/uL Baso # (Auto) 0.04 (0.00-0.20) K/uL Comprehensive Metabolic Panel 09/19/25 09/20/25 Range/Units 14:30 05:55 Sodium 136 139 (136-145) mmol/L Potassium 4.3 3.8 (3.5-5.1) mmol/L Chloride 98 102 (98-107) mmol/L Carbon Dioxide 29 31 (21-32) mmol/L BUN 35 H 32 H (6-23) mg/dl Creatinine 1.61 H 1.52 H (0.6-1.4) mg/dl Glucose 118 H 90 (70-99(Fasting)) mg/dl Calcium 9.4 9.0 (8.6-10.3) mg/dl AST 26 (13-39) U/L ALT 17 (7-52) U/L Alkaline Phosphatase 118 H (34-104) U/L Total Protein 9.2 H (6.0-8.3) gm/dl Albumin 3.5 (3.4-5.0) gm/dl Intake and Output 09/19/25 09/20/25 09/20/25 22:59 06:59 14:59 Output Total 425 / 1125 700 / 1125 Balance -425 / -1125 -700 / -1125 Output: Urine 425 / 1125 700 / 1125 Other: Other Intake Source npo Weight 97.1 kg 97.1 kg Weight Measurement Method Standing Scale Standing Scale Diagnostic Findings Cardiac Cath [facility] 12/10/[address] Mayela Charles Conclusions: 100% prox RCA stent thrombotic occlusion Left system known to be chronically occluded and therefore not engaged Grafts: SVG-LAD patent. fills prox--distal LAD, high D1 and provides L-R collaterals to RPDA SVG-OM2 patent. Fills AVG cx proximally and distally and distally supplying high OM1 and OM3 Intervention: Culprit prox RCA occlusion--s/p 1 WEST *will need indefinite DAPT due to 2 layers of stent* PG Care Time/CCT Total # of Minutes Spent Total Time Spent with Patient: Total time spent is greater than 50% in coordination of care (as documented) at patient's floor/unit and/or counseling patient: [place] [address] IN/OBS CONSULT LVL 5,80M Patient Type New Diagnoses Acute on chronic heart failure with preserved ejection fraction (HFpEF) I50.33 Chronic pleural effusion J90 CAD (coronary artery disease) I25.10 S/P CABG (coronary artery bypass graft) Z95.1 S/P aortic valve replacement Z95.2 Time Spent (min) 50
[2025-09-20] MEDS: EZETIMIBE 10 MG TAB PO SCH (08:36)
[2025-09-20] MEDS: ASPIRIN 81 MG ECTAB PO SCH (08:36)
[2025-09-20] MEDS: ISOSORBIDE MONO EXTENDED REL 30 MG TABCR PO SCH (08:36)
[2025-09-20] MEDS: POTASSIUM CHLORIDE 10 MEQ TABCR PO SCH (08:36)
[2025-09-20] MEDS: FEXOFENADINE HCL 180 MG TAB PO SCH (08:36)
[2025-09-20] MEDS: FUROSEMIDE 40 MG/4 ML VIAL IV ONE (08:36)
[2025-09-20] MEDS: UMECLIDINIUM BROMIDE 62.5MCG/BLISTER 7 PUFFS/INHALER INH SCH (08:37)
--- NOTE | 2025-09-20 16:50 | Hospitalist Progress Note ---
Date of Service September 20, 2025 Assessment & Plan (1) Acute on chronic heart failure with preserved ejection fraction (HFpEF): (2) Chronic pleural effusion: (3) CAD (coronary artery disease): (4) Atrial fibrillation: (5) Asthma: (6) Chronic kidney disease: Plan 70 year old male with PMH significant for hyperlipidemia, chronic respiratory failure with hypoxia, moderate persistent asthma, chronic pleural effusion, CAD s/p stent (2024) and history of CABG (2015), aortic stenosis s/p AVR (2015), atrial fibrillation, history of symptomatic junctional bradycardia s/p DCP (February 2025), hypertension, atrial fibrillation, HFpEF, CKD IIIa, Hodgkin lymphoma s/p radiation, JIM on CPAP, MGUS who presents to the ED on 09/19/2025 with SOB. Patient was referred by his PCP due to LE edema, increased weight, and O2 sat of 80% while exerting in the office. Acute on chronic HFpEF Chronic pleural effusion Follows with [facility] Patient presenting with worsening exertional SOB over the last month, recent weight gain of 5lbs and worsening LE edema No improvement in symptoms despite med changes two weeks ago (doubled torsemide, decreased metoprolol, added imdur) CXR revealed pulmonary edema and progressive chronic right pleural effusion BNP 292 (improved from 959 outpatient on 09/06) Troponin negative and EKG without signs of ischemia TTE in Nov 2024 revealed moderate LVH, EF 65-70%, normal gradient bioprosthetic aortic valve without AR, moderate TR, pulmonary hypertension Scheduled for outpatient stress echo on 09/27 Received 40mg IV lasix in ED CT chest for better visualization of right lung - Moderate right and small left pleural fluids There is a mild thickening of the pleural rind surrounding the right pleural fluid. This may be due to longstanding nature of this pleural fluid. In a proper clinical context, superimposed infection/empyema are not excluded. Rounded right infrahilar pulmonary density is probably a rounded atelectasis. Difficult to exclude pneumonia or neoplastic mass lesion. Recommend surveillance thoracic CT in 3 months for reassessment. LLE doppler - No evidence of left leg deep venous thrombosis -IV lasix 40mg daily for now -Daily weights and measure I&Os -Continue lisinopril, metoprolol, Imdur -Cardiology consulted - cont. diuresis for now, will update echo Asthma Follows with [facility] Pulmonology Patient does not feel he is in exacerbation Continue inhalers Xopenex PRN due to tachycardia CAD s/p stent (2024) and history of CABG (2015) Hyperlipidemia Continue baby aspirin, Brilinta, atorvastatin, ezetimbe Atrial fibrillation History of bradycardia s/p DCP PM interrogated in ED Continue metoprolol CKD Creat 1.61 on admission Baseline appears to be around 1.5 Avoid nephrotoxic agents as able Monitor renal function JIM CPAP HS DVT Prophylaxis: SQ Heparin Code Status: DNR/DNI PCP: Dr. Chelle Vasquez Disposition: med/tele Admission and Anticipated Discharge Date Admission Date: September 19, 2025 Subjective Pt seen in follow up of acute HF Currently pt is seen walking in his room, on RA Pt is comfortable, denies any chest pain or shortness of breath at this time However reports progressive shortness of breath and edema Seen by cardiology and discussed with - will continue w/ diuresis now Review of Systems Review of Systems: All systems reviewed & are unremarkable except as noted in Subjective Physical Exam Constitutional: WD/WN, vitals as above Eyes: PERRL, conjunctivae normal, anicteric sclerae ENMT: external ear and nose normal, oropharynx normal Neck: normal visual inspection Respiratory: decrease breath sounds, diminished on R Cardiovascular: Rate/Rhythm: regular rate and regular rhythm Gastrointestinal (Abdomen): normal bowel sounds, soft, nontender, no hepatosplenomegaly Musculoskeletal: moves extremities, + LE edema Skin: no rashes, warm and dry Neurologic: PERRL, EOMI, accommodation nl, no face palsy, no dysarthria Psychiatric: A+Ox3, euthymic affect Results & Data Results & Data Vital Signs (Past 12 Hours) Vital Signs Temp Pulse Pulse Resp BP Pulse Ox O2 Del Method 09/20/25 13:51 89 09/20/25 10:54 36.4 C L 87 20 117/75 92 Room Air 09/20/25 07:52 36.3 C L 81 20 111/75 98 Nasal Cannula 09/20/25 07:36 83 O2 Flow Rate 09/20/25 13:51 09/20/25 10:54 09/20/25 07:52 2 09/20/25 07:36 Laboratory Results 09/20/25 Range/Units 05:55 WBC 6.06 (4.8-10.8) K/ul RBC 3.40 L (4.70-6.10) M/uL Hgb 10.5 L (14.0-18.0) g/dL Hct 30.6 L (42.0-52.0) % MCV 90.0 (80.0-100.0) fL MCH 30.9 (25.0-34.0) pg MCHC 34.3 (32.0-36.0) g/dL RDW Std Deviation 58.5 H (36.4-46.3) fL RDW Coeff of Sarahy 17.9 H (11.5-14.5) % Plt Count 310 (130-400) K/uL MPV 9.9 (9.4-12.4) fL Sodium 139 (136-145) mmol/L Potassium 3.8 (3.5-5.1) mmol/L Chloride 102 (98-107) mmol/L Carbon Dioxide 31 (21-32) mmol/L Anion Gap 6 (3-11) BUN 32 H (6-23) mg/dl Creatinine 1.52 H (0.6-1.4) mg/dl Est Cr Clr Drug Dosing 49.5 ml/min eGFR 48.69 BUN/Creatinine Ratio 21.1 H (10-20) Glucose 90 (70-99(Fasting)) mg/dl Calcium 9.0 (8.6-10.3) mg/dl Phosphorus 4.0 (2.5-4.9) mg/dl Magnesium 2.1 (1.7-2.4) mg/dl Medications Administered Current Inpatient Medications Acetaminophen (Acetaminophen 325 Mg Tab) 650 mg PO Q4H PRN PRN Reason: pain/fever Stop: 10/19/25 21:31 Aspirin (Aspirin 81 Mg Ectab) 81 mg PO [facility] Stop: 10/20/25 08:59 Last Admin: 09/20/25 08:36 Dose: 81 mg Atorvastatin Calcium (Atorvastatin 40 Mg Tab) 40 mg PO [facility] Stop: 10/19/25 21:31 Last Admin: 09/19/25 22:22 Dose: 40 mg Bisacodyl (Bisacodyl 5 Mg Tabec) 10 mg PO HS [facility] Stop: 10/19/25 21:31 Last Admin: 09/19/25 22:23 Dose: Not Given Budesonide (Budesonide 0.5 Mg/2 Ml Vial (Pulmicort)) 1 mg INH BID PRN PRN Reason: Shortness Of Breath Stop: 10/19/25 21:34 Ezetimibe (Ezetimibe 10 Mg Tab) 10 mg PO DAILY [facility] Stop: 10/20/25 08:59 Last Admin: 09/20/25 08:36 Dose: 10 mg Fexofenadine HCl (Fexofenadine Hcl 180 Mg Tab) [facility] [place]: 10/20/25 08:59 Last Admin: 09/20/25 08:36 Dose: 180 mg Furosemide (Furosemide 40 Mg/4 Ml Vial) 40 mg IV ONE ONE Stop: 09/21/25 08:01 Heparin Sodium (Porcine) (Heparin Sod 5,000 Unit/0.5 Ml Vial) 5,000 units SQ Q12 [facility] Stop: 10/19/25 21:31 Last Admin: 09/20/25 08:36 Dose: 5,000 units Isosorbide Mononitrate (Isosorbide [place] Extended Rel 30 Mg Tabcr) 30 mg PO [facility] Stop: 10/20/25 08:59 Last Admin: 09/20/25 08:36 Dose: 30 mg Lactic Acid (Ammonium Lactate 12% Lotion 225 Gm Btl) 1 gm EXT BID PRN PRN Reason: Dryness Stop: 10/19/25 21:31 Levalbuterol HCl (Levalbuterol 1.25 Mg/3 Ml Neb) 1.25 mg NEB Q6H PRN PRN Reason: Shortness Of Breath Or Wheezing Stop: 10/19/25 21:31 Lisinopril (Lisinopril 5 Mg Tab) 5 mg PO [facility] Stop: 10/20/25 08:59 Last Admin: 09/20/25 08:36 Dose: 5 mg Metoprolol Succinate (Metoprolol Succ 25mg Ext Rel Tab) 25 mg PO [facility] Stop: 10/19/25 21:31 Last Admin: 09/19/25 22:22 Dose: 25 mg Ondansetron HCl (Ondansetron Inj 2 Mg/Ml 2 Ml Vial) 4 mg IV Q6H PRN PRN Reason: Nausea Stop: 10/19/25 21:31 Pantoprazole Sodium (Pantoprazole 40 Mg Tab) 40 mg PO [facility] Stop: 10/19/25 21:44 Last Admin: 09/19/25 22:22 Dose: 40 mg Polyethylene Glycol (Polyethylene (Miralax) 17 Gm Pack) 17 gm PO DAILY PRN PRN Reason: Constipation Stop: 10/19/25 21:31 Last Admin: 09/19/25 22:21 Dose: 17 gm Potassium Chloride (Potassium Chloride 10 Meq Tabcr) 10 meq PO QAM [facility] Stop: 10/20/25 08:59 Last Admin: 09/20/25 08:36 Dose: 10 meq Probenecid (Probenecid 500 Mg Tab) 500 mg PO BID [facility] Stop: 10/19/25 21:31 Last Admin: 09/20/25 08:36 Dose: 500 mg Ticagrelor (Ticagrelor 90 Mg Tab) 90 mg PO BID [facility] Stop: 10/19/25 21:31 Last Admin: 09/20/25 08:36 Dose: 90 mg Umeclidinium [place] (Umeclidinium [place] 62.5mcg/Blister 7 Puffs/Inhaler) 1 puffs INH DAILY [facility] Stop: 10/20/25 08:59 Last Admin: 09/20/25 08:37 Dose: 1 puffs Vitamin D (Cholecalciferol 25 Mcg (1000 Units) Tab) 50 mcg PO HS [facility] Stop: 10/19/25 21:31 Last Admin: 09/19/25 22:22 Dose: 50 mcg
--- NOTE | 2025-09-20 20:04 | XCELERA ---
[id number] \\[id number]
[2025-09-21] MEDS: SODIUM CHLORIDE 0.9% 250 ML IV ONE (03:11)
[2025-09-21 06:43] LABS: Hematocrit (blood only) 30.4 % (42.0-52.0); Hemoglobin 10.7 g/dL (14.0-18.0); Mean Corpuscular Hemoglobin 31.4 pg (25.0-34.0); Mean Corpuscular Volume 89.1 fL (80.0-100.0); Platelet Count 301 K/uL (130-400); RDW Standard Deviation 60.3 fL (36.4-46.3); Red Blood Count 3.41 M/uL (4.70-6.10); White Blood Count 5.65 K/ul (4.8-10.8)
[2025-09-21 07:14] LABS: Anion Gap 8.0 (3-11); Blood Urea Nitrogen 32.0 mg/dl (6-23); Calcium 8.9 mg/dl (8.6-10.3); Carbon Dioxide 28.0 mmol/L (21-32); Chloride 101.0 mmol/L (98-107); Creatinine Clr Calc Pharmacy 48.1 ml/min; Glucose 88.0 mg/dl (70-99(Fasting)); Magnesium 2.1 mg/dl (1.7-2.4); Potassium 3.7 mmol/L (3.5-5.1); Sodium 137.0 mmol/L (136-145)
--- NOTE | 2025-09-21 08:32 | Cardiology Progress Note ---
Date of Service September 21, 2025 Assessment & Plan (1) Acute on chronic heart failure with preserved ejection fraction (HFpEF): (2) Chronic pleural effusion: (3) CAD (coronary artery disease): (4) S/P CABG (coronary artery bypass graft): (5) S/P aortic valve replacement: Plan Assessment: 70 year old medically complex male presents upon recommendation from PCP for several weeks of worsening dyspnea on exertion, weight gain and lower extremity edema despite OP medication adjustments. Patient currently slated for OP nuclear stress test 09/27/2025 given his history and symptoms. Cardiology consulted for further evaluation and recommendations. Plan: 1. Acute on chronic Heart failure with preserved ejection fraction -Patient with several weeks of progressively worsening dyspnea, quick weight gain and B/L lower extremity edema. Patient shows clinical improvement today from a cardiac perspective. -Patient reports modest diuresis. Received 40mg IV lasix this AM. Labs remain stable. Will give an Additional dose of Lasix 40mg IV x1 Tomorrow morning. -Physical exam demonstrates diminished lung sounds on the right, although there is notable improvement on examination today. This effusion appears be chronic although imaging shows likely interval increase. -Strict I&O, daily weights with a standing scale -Close monitoring of serum renal function and electrolytes. Goal Serum K> 4.0 and Serum Mag > 2.0. -Continue cardiac prudent diet, less than 2G of sodium. -Obtain resting echocardiogram to assess overall structure and function. -Review of device interrogation shows normal function, no events or alarms. -Continue Toprol xl 25mg PO HS, Lisinopril 5mg PO QAM as part of HF regimen. 2. Chronic pleural effusion -Long standing per review of records this has been discussed since at least 2015 when patient is was to undergo his CABG and AVR -Patient follows with Dr. Rodriguez in outpatient pulmonology that made note of the chronic effusion with recommendation to not pursue thoracentesis. Per discussion with patient, surgical intervention had been discussed at one point; however, given his extensive nature of coronary disease and recent in stent restenosis requiring a layered stent to the pRCA (Nov 2024), patient is to remain on DAPT with ASA 81mg and Brilinta indefinately, future consideration would be considered for temporary interruption of his Brilinta, but would need to be at least one year post PCI -Obtain resting echocardiogram to assess overall structure and function -Give lasix 40mg x1 dose in the AM 3. CAD 4. S/p CABG (2016 2 vessel; history of layered stents to Proximal RCA --most recent intervention was 11/2024) 5. History of AVR 6. History of SSS/syncope--presence of a PPM -Patient with known complex CAD as outlined in most recent cardiac cath report dated 11/2024 -Currently scheduled for an OP nuclear stress test on 09/27/2025 -- patient is aware to please keep this appointment as scheduled. -Will work to diurese patient as hypervolemia is an attributing factor for his symptoms. -Continue GDMT with ASA 81mg, Atorvastatin, zetia, Imdur, Lisinopril, Brilinta, Toprol xl as per current regimen. patient is to remain on DAPT with ASA and Brilinta indefinitely due to history of layered stent Case has been discussed with Dr. Prince. Further recommendations regarding plan of care as per his assessment. I spent a total of 40 minutes on the date of service in preparation, delivery, documentation of the care provided to the patient excluding any time spent in the performance of separately billed services. GILBERTO Guillen [facility] Cardiology [facility] Admission and Anticipated Discharge Date Admission Date: September 19, 2025 Supervising Physician Co-Signing Physician Notes Attending attestation: Case reviewed with the advanced practitioner. I have personally performed a history and physical examination on the patient. I have reviewed the advanced practitioner's documentation on the date of service referenced in note, and I agree with, and take responsibility for the plan of care. Subjective: Patient states his SOB is improving. Data: Creatinine 1.56 mg /dl Echo with stable findings, normal LVEF, normal prosthetic AV gradients. Impression/ Plan: 1. Shortness of breath with exertion 2. At least moderate right pleural effusion 3. History of CAD, CABG x 2 2015 , SVG-LAD and SVG-OM2, Bio AVR, WEST to RCA in 03/2024 , then WEST to RCA 11/2024 in setting of stent thrombosis (transitioned from clopidogrel to Brilinta at that time) 4. Histor of Hodgkin's Lymphoma with chest radiation in 1074 at the age of 20, followed by MOP chemotherapy in 1982 Plan: -Continue IV furosemide. 40 mg IV daily. -Keep appointment for nuclear stress as an outpatient. Kenneth Prince DO Subjective 09/21/2025: Patient seen and examined in follow up today. Feeling well from a cardiac perspective. He reports continued improvement in his breathing, currently out of bed in the chair, but was able to tolerate sleeping in bed last night. No chest pain, pressure or palpitations. Endorses a very brief episode of dizziness when he stood out of bed this morning and bed over quickly to rock picker his pulse ox that fell on the floor. symptoms resolved within seconds. Labs, vitals, diagnostics, telemetry and documentation reviewed. Telemetry reviewed showing SR, underlying occasional paced beat. Review of Systems Review of Systems: All systems reviewed & are unremarkable except as noted in HPI & below Physical Exam Constitutional: well developed and well nourished; no acute distress and not ill appearing Neck: normal visual inspection and trachea midline Respiratory: normal respiratory effort and + cough (dry); no respiratory distress and no labored breathing Auscultation: + diminished lung sounds (Right middle and lower lobe diminished); no crackles, no rales, no rhonchi and no wheezes Cardiovascular: Rate/Rhythm: regular rate and regular rhythm Heart Sounds: normal S1 and normal S2; no murmur Vessels: dorsalis pedis pulses present; no JVD Extremities: + edema (Trace RLE trace to +1 LLE. Left worse than right (chronic) ) Skin: no rashes, warm and dry Psychiatric: A+Ox3, euthymic affect Results & Data Vital Signs (Past 12 Hours) Vital Signs Temp Pulse Pulse Resp BP BP Pulse Ox 09/21/25 07:37 36.3 C L 91 H 16 97/60 L 93 09/21/25 07:18 86 09/21/25 06:38 36.2 C L 88 18 112/70 97 09/21/25 03:30 86 16 115/72 97 09/21/25 02:53 36.4 C L 82 16 88/51 L 94 09/20/25 23:59 36.5 C 91 H 18 99/56 L 93 09/20/25 22:03 92 H 09/20/25 21:00 O2 Del Method 09/21/25 07:37 Room Air 09/21/25 07:18 09/21/25 06:38 Room Air 09/21/25 03:30 09/21/25 02:53 Room Air 09/20/25 23:59 Room Air 09/20/25 22:03 09/20/25 21:00 Room Air, CPAP Laboratory Results CBC 09/21/25 Range/Units 06:23 WBC 5.65 (4.8-10.8) K/ul RBC 3.41 L (4.70-6.10) M/uL Hgb 10.7 L (14.0-18.0) g/dL Hct 30.4 L (42.0-52.0) % Plt Count 301 (130-400) K/uL Comprehensive Metabolic Panel 09/21/25 Range/Units 06:23 Sodium 137 (136-145) mmol/L Potassium 3.7 (3.5-5.1) mmol/L Chloride 101 (98-107) mmol/L Carbon Dioxide 28 (21-32) mmol/L BUN 32 H (6-23) mg/dl Creatinine 1.56 H (0.6-1.4) mg/dl Glucose 88 (70-99(Fasting)) mg/dl Calcium 8.9 (8.6-10.3) mg/dl Intake and Output 09/20/25 09/21/25 09/21/25 22:59 06:59 14:59 Intake Total 440 / 790 350 / 790 Balance 440 / 790 350 / 790 Intake: IV 250 / 250 Sodium Chloride 0.9% 250 ml @ 250 / 250 999 mls/hr IV .Q16M ONE Rx#: [id number] Oral 440 / 540 100 / 540 Other: Weight 96.6 kg Coding Level of Care Code 32962 SUB INP/OBS CARE 3/50MIN Diagnoses Acute on chronic heart failure with preserved ejection fraction (HFpEF) I50.33 Chronic pleural effusion J90 CAD (coronary artery disease) I25.10 S/P CABG (coronary artery bypass graft) Z95.1 S/P aortic valve replacement Z95.2 Time Spent (min) 40
[2025-09-21] MEDS: FUROSEMIDE 40 MG/4 ML VIAL IV ONE (09:36)
--- NOTE | 2025-09-21 11:27 | Hospitalist Progress Note ---
Date of Service September 21, 2025 Assessment & Plan (1) Acute on chronic heart failure with preserved ejection fraction (HFpEF): (2) Chronic pleural effusion: (3) CAD (coronary artery disease): (4) Atrial fibrillation: (5) Asthma: (6) Chronic kidney disease: Plan 70 year old male with PMH significant for hyperlipidemia, chronic respiratory failure with hypoxia, moderate persistent asthma, chronic pleural effusion, CAD s/p stent (2024) and history of CABG (2015), aortic stenosis s/p AVR (2015), atrial fibrillation, history of symptomatic junctional bradycardia s/p DCP (February 2025), hypertension, atrial fibrillation, HFpEF, CKD IIIa, Hodgkin lymphoma s/p radiation, JIM on CPAP, MGUS who presents to the ED on 09/19/2025 with SOB. Patient was referred by his PCP due to LE edema, increased weight, and O2 sat of 80% while exerting in the office. #Acute on chronic HFpEF Chronic pleural effusion Follows with [facility] Cardiology Patient presenting with worsening exertional SOB over the last month, recent weight gain of 5lbs and worsening LE edema No improvement in symptoms despite med changes two weeks ago (doubled torsemide, decreased metoprolol, added imdur) CXR revealed pulmonary edema and progressive chronic right pleural effusion BNP 292 (improved from 959 outpatient on 09/06) Troponin negative and EKG without signs of ischemia TTE in Nov 2024 revealed moderate LVH, EF 65-70%, normal gradient bioprosthetic aortic valve without AR, moderate TR, pulmonary hypertension Scheduled for outpatient stress echo on 09/27 Plan -Continue IV lasix per cardio -Monitor renal function, IOs -Anticipate DC home tomorrow -GDMT as tolerated #Hypotension -Likely secondary to cardiac regimen -Asymptomatic, continue GDMT as tolerated #Asthma Follows with [facility] Pulmonology Patient does not feel he is in exacerbation Continue inhalers Xopenex PRN due to tachycardia CAD s/p stent (2024) and history of CABG (2015) Hyperlipidemia Continue baby aspirin, Brilinta, atorvastatin, ezetimbe #Paroxysmal Atrial fibrillation History of bradycardia s/p DCP PM interrogated in ED Continue metoprolol #CKD3 Creat 1.61 on admission Baseline appears to be around 1.5 Avoid nephrotoxic agents as able Monitor renal function #JIM CPAP HS DVT Prophylaxis: SQ Heparin Code Status: DNR/DNI PCP: Dr. Chelle Vasquez I spent a total of 41 minutes coordinating, documenting, and providing care for this patient excluding time spent in the performance of separately billed services. This included personally reviewing all current laboratories and imaging studies, medical reconciliation, outpatient chart review and discussion with specialists Admission and Anticipated Discharge Date Admission Date: September 19, 2025 Subjective Feeling well today he would like to go home. Patient denies F/C, CP, palpitations, SOB, dyspnea, abd pain, N/V/D Physical Exam Physical Exam: Vitals and labs reviewed General: Well appearing, NAD HEENT: EOMI, PERRLA Neck: Supple Cardiac: RRR no rubs gallops or murmurs Lungs: CTA no rhonchi wheezing or rales Abd: S NT ND BS positive : Deffered MSK: Full ROM. No obvious deformities Ext: trace b/l LE Edema Skin: Warm, Dry Neuro: AOx3 No focal deficits. Psych: Normal Mood Results & Data Results & Data Vital Signs (Past 12 Hours) Vital Signs Temp Pulse Pulse Resp BP BP Pulse Ox 09/21/25 11:14 36.4 C L 96 H 20 97/60 L 94 09/21/25 07:37 36.3 C L 91 H 16 97/60 L 93 09/21/25 07:18 86 09/21/25 06:38 36.2 C L 88 18 112/70 97 09/21/25 03:30 86 16 115/72 97 09/21/25 02:53 36.4 C L 82 16 88/51 L 94 09/20/25 23:59 36.5 C 91 H 18 99/56 L 93 O2 Del Method 09/21/25 11:14 Room Air 09/21/25 07:37 Room Air 09/21/25 07:18 09/21/25 06:38 Room Air 09/21/25 03:30 09/21/25 02:53 Room Air 09/20/25 23:59 Room Air Laboratory Results Abnormal lab results 09/21/25 Range/Units 06:23 RBC 3.41 L (4.70-6.10) M/uL Hgb 10.7 L (14.0-18.0) g/dL Hct 30.4 L (42.0-52.0) % RDW Std Deviation 60.3 H (36.4-46.3) fL RDW Coeff of Sarahy 18.3 H (11.5-14.5) % BUN 32 H (6-23) mg/dl Creatinine 1.56 H (0.6-1.4) mg/dl BUN/Creatinine Ratio 20.5 H (10-20)
[2025-09-21] MEDS: LEVALBUTEROL 1.25 MG/3 ML NEB NEB PRN (21:23)
[2025-09-21 22:37] VITALS: TEMP 97.3
[2025-09-22 07:26] VITALS: RESP 16; O2SAT 94
[2025-09-22 07:48] LABS: Anion Gap 9.0 (3-11); Blood Urea Nitrogen 30.0 mg/dl (6-23); Calcium 9.0 mg/dl (8.6-10.3); Carbon Dioxide 28.0 mmol/L (21-32); Chloride 100.0 mmol/L (98-107); Creatinine Clr Calc Pharmacy 51.1 ml/min; Glucose 91.0 mg/dl (70-99(Fasting)); Potassium 3.7 mmol/L (3.5-5.1); Sodium 137.0 mmol/L (136-145)
[2025-09-22] MEDS: FUROSEMIDE 40 MG/4 ML VIAL IV ONE (08:13)
[2025-09-22 08:53] VITALS: BP 135/79; PULSE 106
--- NOTE | 2025-09-22 11:50 | Cardiology Progress Note ---
Date of Service September 22, 2025 Assessment & Plan (1) Acute on chronic heart failure with preserved ejection fraction (HFpEF): (2) Chronic pleural effusion: (3) CAD (coronary artery disease): (4) S/P CABG (coronary artery bypass graft): (5) S/P aortic valve replacement: Plan Assessment: 70 year old medically complex male presents upon recommendation from PCP for several weeks of worsening dyspnea on exertion, weight gain and lower extremity edema despite OP medication adjustments. Patient currently slated for OP nuclear stress test 09/27/2025 given his history and symptoms. Cardiology consulted for further evaluation and recommendations. Plan: 1. Acute on chronic Heart failure with preserved ejection fraction -Patient with several weeks of progressively worsening dyspnea, quick weight gain and B/L lower extremity edema. Patient shows clinical improvement today from a cardiac perspective. -Patient reports modest diuresis. Received 40mg IV lasix this AM. Labs remain stable. -Will obtain 2 view PA and Lateral chest xray this morning. Pending results will discuss transition dosing to PO diuretic regimen for discharge. -Strict I&O, daily weights with a standing scale -Close monitoring of serum renal function and electrolytes. Goal Serum K> 4.0 and Serum Mag > 2.0. -Continue cardiac prudent diet, less than 2G of sodium. -Continue Toprol xl 25mg PO HS, Lisinopril 5mg PO QAM as part of HF regimen. 2. Chronic pleural effusion -Long standing per review of records this has been discussed since at least 2015 when patient is was to undergo his CABG and AVR -Patient follows with Dr. Rodriguez in outpatient pulmonology that made note of the chronic effusion with recommendation to not pursue thoracentesis. Per discussion with patient, surgical intervention had been discussed at one point; however, given his extensive nature of coronary disease and recent in stent restenosis requiring a layered stent to the pRCA (Nov 2024), patient is to remain on DAPT with ASA 81mg and Brilinta indefinately, future consideration would be considered for temporary interruption of his Brilinta, but would need to be at least one year post PCI -Awaiting chest xray results for PO dosing transition of diuretic 3. CAD 4. S/p CABG (2015 2 vessel; history of layered stents to Proximal RCA --most recent intervention was 11/2024) 5. History of AVR 6. History of SSS/syncope--presence of a PPM -Patient with known complex CAD as outlined in most recent cardiac cath report dated 11/2024 -Currently scheduled for an OP nuclear stress test Wednesday 09/[facility] at [facility]. -Continue GDMT with ASA 81mg, Atorvastatin, zetia, Imdur, Lisinopril, Brilinta, Toprol xl as per current regimen. patient is to remain on DAPT with ASA and Brilinta indefinitely due to history of layered stent Case has been discussed with Dr. Prince. Further recommendations regarding plan of care as per his assessment. I spent a total of 40 minutes on the date of service in preparation, delivery, documentation of the care provided to the patient excluding any time spent in the performance of separately billed services. GILBERTO Guillen [facility] Admission and Anticipated Discharge Date Admission Date: September 19, 2025 Supervising Physician Co-Signing Physician Notes Attending attestation: Case reviewed with the advanced practitioner. I have personally performed a history and physical examination on the patient. I have reviewed the advanced practitioner's documentation on the date of service referenced in note, and I agree with, and take responsibility for the plan of care. Subjective: Patient states his SOB is improving. Data: Creatinine 1.56 mg /dl -->1.47 Echo with stable findings, normal LVEF, normal prosthetic AV gradients. Impression/ Plan: 1. Shortness of breath with exertion, acute HFpEF 2. At least moderate right pleural effusion 3. History of CAD, CABG x 2 2015 , SVG-LAD and SVG-OM2, Bio AVR, WEST to RCA in 03/2024 , then WEST to RCA 11/2024 in setting of stent thrombosis (transitioned from clopidogrel to Brilinta at that time) 4. History of Hodgkin's Lymphoma with chest radiation in 1974 at the age of 20, followed by MOP chemotherapy in 1982 Plan: -Chest X Ray today with stable chronic pleural effusion. Mild superimposed pulmonary edema otherwise. -Clinically improved. -Titration of diuretics limited due to relative low blood pressure -Stable from cardiac perspective for transition to oral diuretics, torsemide 20 mg by mouth daily -Keep plans for nuclear stress test on 09/26/25 as outpatient at [facility]. -As previously noted, IR guided thoracentesis of the right pleural effusion attempted in March, but was not successful (dry tap). Further treatment with consideration of VATS delayed due to right coronary artery stents placed in March 2024 and then again in November, requiring dual antiplatelet therapy. --Stable for discharge with medication plan as noted Kenneth Prince DO Subjective 09/22/2025: Patient seen and examined in follow up today. Feeling well from a ca ia perspective. offers no acute concerns. Resting comfortably out of bed in a chair. Labs, vitals, diagnostics, telemetry and documentation reviewed. Telemetry reviewed showing SR/ST Rates 90-109bpm. Nursing staff held patient's beta miguel angel overnight due to low blood pressures. Review of Systems Review of Systems: All systems reviewed & are unremarkable except as noted in HPI & below Physical Exam Constitutional: well developed and well nourished; no acute distress and not ill appearing Neck: normal visual inspection and trachea midline Respiratory: normal respiratory effort and + cough (dry); no respiratory distress and no labored breathing Auscultation: + diminished lung sounds (Right middle and lower lobe diminished); no crackles, no rales, no rhonchi and no wheezes Cardiovascular: Rate/Rhythm: regular rate and regular rhythm Heart Sounds: normal S1 and normal S2; no murmur Vessels: dorsalis pedis pulses present; no JVD Extremities: no edema Skin: no rashes, warm and dry Psychiatric: A+Ox3, euthymic affect Results & Data Vital Signs (Past 12 Hours) Vital Signs Temp Pulse Pulse Resp BP BP Pulse Ox 09/22/25 08:50 106 H 135/79 09/22/25 08:35 09/22/25 07:40 92/57 L 09/22/25 07:40 104/68 09/22/25 07:40 100/67 09/22/25 07:25 86 09/22/25 07:25 36.3 C L 100 H 16 128/71 94 09/22/25 01:49 36.3 C L 96 H 18 122/81 95 O2 Del Method 09/22/25 08:50 09/22/25 08:35 Room Air 09/22/25 07:40 09/22/25 07:40 09/22/25 07:40 09/22/25 07:25 09/22/25 07:25 Room Air 09/22/25 01:49 Room Air Laboratory Results Comprehensive Metabolic Panel 09/22/25 Range/Units 06:35 Sodium 137 (136-145) mmol/L Potassium 3.7 (3.5-5.1) mmol/L Chloride 100 (98-107) mmol/L Carbon Dioxide 28 (21-32) mmol/L BUN 30 H (6-23) mg/dl Creatinine 1.47 H (0.6-1.4) mg/dl Glucose 91 (70-99(Fasting)) mg/dl Calcium 9.0 (8.6-10.3) mg/dl Intake and Output 09/21/25 09/22/25 09/22/25 22:59 06:59 14:59 Intake Total 300 / 1000 150 / 1000 Balance 300 / 1000 150 / 1000 Intake: Oral 300 / 1000 150 / 1000 Other: Weight 96.7 kg Coding Level of Care Code 23853 SUB INP/OBS CARE 3/50MIN Diagnoses Acute on chronic heart failure with preserved ejection fraction (HFpEF) I50.33 Chronic pleural effusion J90 CAD (coronary artery disease) I25.10 S/P CABG (coronary artery bypass graft) Z95.1 S/P aortic valve replacement Z95.2 Time Spent (min) 40
--- NOTE | 2025-09-22 11:58 | XRay Report ---
TWO VIEW CHEST CLINICAL HISTORY: Pleural effusion. FINDINGS: PA and lateral chest radiographs are compared to chest x-ray and chest CT dated 09/19/2025. The patient is status post midline sternotomy. A 2-lead cardiac pacemaker is unchanged in position an d partially obscures the left mid chest. The heart is enlarged noting atherosclerotic calcification o f the thoracic aorta. There is pulmonary vascular congestion. A loculated pleural effusion/collection at the right lung base is similar to previous, with consolidation of the right lower lung. A small p leural effusion is suspected on the left. There is no pneumothorax. The skeletal structures are osteo penic. The bony thorax appears intact. Degenerative change is noted in the shoulders and spine. Numer ous surgical clips are seen in the upper abdomen. Numerous gallstones are seen in the right upper kirit drant. IMPRESSION: 1. Cardiomegaly and cardiac pacemaker with pulmonary vascular congestion. 2. A loculated pleural effusion/collection at the right lung base with consolidation of the right low er lung is similar to previous. 3. Only a small volume of pleural fluid is seen in the left. 4. Cholelithiasis. ACT 112: Negative or not required by law. Electronically signed by: Juanito Galdamez M.D. 09/22/2025 11:56 AM
--- NOTE | 2025-09-22 13:47 | Discharge Summary ---
Discharge Summary Date of Service September 22, 2025 Principal Dx & Hospital Course #1 = Principal Diagnosis (1) Acute on chronic heart failure with preserved ejection fraction (HFpEF): (2) Chronic pleural effusion: (3) CAD (coronary artery disease): (4) Atrial fibrillation: (5) Asthma: (6) Chronic kidney disease: Plan 70 year old male with PMH significant for hyperlipidemia, chronic respiratory failure with hypoxia, moderate persistent asthma, chronic pleural effusion, CAD s/p stent (2024) and history of CABG (2015), aortic stenosis s/p AVR (2015), atrial fibrillation, history of symptomatic junctional bradycardia s/p DCP (February 2025), hypertension, atrial fibrillation, HFpEF, CKD IIIa, Hodgkin lymphoma s/p radiation, JIM on CPAP, MGUS who presents to the ED on 09/19/2025 with SOB. Patient was referred by his PCP due to LE edema, increased weight, and O2 sat of 80% while exerting in the office. He was admitted for acute CHF. cardio was consulted. He was started on IV lasix with good response. He did not require O2. Diuretic titration limited by hypotension. Today he feels well and wishes to go home. d/w cardio ok for dc home. vitals and labs are stable on day of discharge. He has a stress test at [facility] next week. #Acute on chronic HFpEF Chronic pleural effusion Follows with [facility] Cardiology Patient presenting with worsening exertional SOB over the last month, recent weight gain of 5lbs and worsening LE edema No improvement in symptoms despite med changes two weeks ago (doubled torsemide, decreased metoprolol, added imdur) CXR revealed pulmonary edema and progressive chronic right pleural effusion BNP 292 (improved from 959 outpatient on 09/06) Troponin negative and EKG without signs of ischemia TTE in Nov 2024 revealed moderate LVH, EF 65-70%, normal gradient bioprosthetic aortic valve without AR, moderate TR, pulmonary hypertension Scheduled for outpatient stress echo on 09/27 #Hypotension -Likely secondary to cardiac regimen -Asymptomatic, continue GDMT as tolerated #Asthma Follows with [facility] Pulmonology Patient does not feel he is in exacerbation Continue inhalers Xopenex PRN due to tachycardia CAD s/p stent (2024) and history of CABG (2015) Hyperlipidemia Continue baby aspirin, Brilinta, atorvastatin, ezetimbe #Paroxysmal Atrial fibrillation History of bradycardia s/p DCP PM interrogated in ED Continue metoprolol #CKD3 Creat 1.61 on admission Baseline appears to be around 1.5 Avoid nephrotoxic agents as able Monitor renal function #JIM CPAP HS DVT Prophylaxis: SQ Heparin Code Status: DNR/DNI PCP: Dr. Chelle Vasquez I spent a total of 39 minutes coordinating, documenting, and providing care for this patient excluding time spent in the performance of separately billed services. This included personally reviewing all current laboratories and imaging studies, medical reconciliation, outpatient chart review and discussion with specialists Notes For Next Care Provider Medication Changes From Visit no med changes Admission HPI Per Admitting Provider 70 year old male with PMH significant for hyperlipidemia, chronic respiratory failure with hypoxia, moderate persistent asthma, chronic pleural effusion, CAD s/p stent (2024) and history of CABG (2015), aortic stenosis s/p AVR (2015), atrial fibrillation, history of symptomatic junctional bradycardia s/p DCP (February 2025), hypertension, atrial fibrillation, HFpEF, CKD IIIa, Hodgkin lymphoma s/p radiation, JIM on CPAP, MGUS who presents to the ED on 09/19/2025 with SOB. Patient was referred by his PCP due to LE edema, increased weight, and O2 sat of 80% while exerting in the office. Patient reports that he has had a lifetime of exertional SOB, but has noticed an acute worsening over the last month. He reports a flu like illness in July that he feels he never recovered from. He finds himself getting extremely short of breath to the point where he needs to stop activity and take deep breaths to get enough air in. This occurs with simple activity such as walking to his car or up a flight of steps. It improves with rest for the most part and he also notes a possible improvement if he uses albuterol. He has been evaluated by his Master Scheduler for this and recently increased torsemide, started imdur, and decreased metoprolol. He has not noticed any improvement in his symptoms since these changes. He is scheduled for an outpatient stress test next week. He also notes slightly higher weight that isn't coming down. Today he was 217lb where his baseline is usually around 212lbs. He has also noticed a pain between his shoulder pains that tends to occur at the end of the day when he is tired. He follows a chiropractor who notes abnormal muscle structure in his back and he admits that he has poor posture. He has been using his inhalers daily since the recent change in weather and does not feel that he is in an acute asthma exacerbation. Discharge Exam Vitals and labs reviewed General: Well appearing, NAD HEENT: EOMI, PERRLA Neck: Supple Cardiac: RRR no rubs gallops or murmurs Lungs: CTA no rhonchi wheezing or rales Abd: S NT ND BS positive : Deffered MSK: Full ROM. No obvious deformities Ext: No Edema cyanosis Skin: Warm, Dry Neuro: AOx3 No focal deficits. Psych: Normal Mood Updated Medication List Medication Instructions Recorded Confirmed Type fexofenadine 180 mg tablet 180 mg PO QAM 07/05/19 09/19/25 History cholecalciferol (vitamin D3) 25 2,000 unit PO HS 01/06/23 09/19/25 History mcg (1,000 unit) capsule tramadol 50 mg tablet 50 mg PO Q6H PRN pain #60 tabs 09/22/23 09/19/25 Rx albuterol sulfate 2.5 mg/3 mL 2.5 mg continuous nebulization BID 12/08/24 09/19/25 History (0.083 %) solution for nebulization PRN Other albuterol sulfate 90 mcg/actuation 2 puff inhalation .Q4-6H PRN 12/08/24 09/19/25 History aerosol inhaler Shortness Of Breath Or Wheezing aspirin 81 mg tablet,delayed 81 mg PO QAM 12/08/24 09/19/25 History release atorvastatin 40 mg tablet 40 mg PO HS 12/08/24 09/19/25 History budesonide 1 mg/2 mL suspension 1 mg inhalation .UD PRN Other 12/08/24 09/19/25 History for nebulization ezetimibe 10 mg tablet 10 mg PO DAILY 12/08/24 09/19/25 History lisinopril 5 mg tablet 5 mg PO QAM 12/08/24 09/19/25 History nitroglycerin 0.4 mg sublingual 0.4 mg sublingual .Q5MIN X3 PRN 12/08/24 09/19/25 History tablet Chest Pain omeprazole 20 mg capsule,delayed 20 mg PO HS 12/08/24 09/19/25 History release probenecid 500 mg tablet 500 mg PO BID 12/08/24 09/19/25 History torsemide 20 mg tablet 20 mg PO QAM 12/08/24 09/19/25 History ticagrelor 90 mg tablet (Brilinta) 90 mg PO BID 03/02/25 09/19/25 History isosorbide mononitrate 30 mg 30 mg PO QAM 09/19/25 09/19/25 History tablet,extended release 24 hr metoprolol succinate 25 mg 25 mg PO HS 09/19/25 09/19/25 History tablet,extended release 24 hr potassium chloride 10 mEq 10 meq PO QAM 09/19/25 09/19/25 History tablet,extended release umeclidinium 62.5 mcg/actuation 1 inh inhalation DAILY 09/19/25 09/19/25 History blister powder for inhalation (Incruse Ellipta) Hospital Stay Data Consultations 09/19/25 16:18 ED Decision to Admit Stat 09/19/25 21:32 Consult Cardiology Routine Diagnostic Imagining Performed 09/19/25 16:31 CT chest diagnostic wo con Urgent US venous doppler LE LT Urgent Pending Results Patient Have Any Pending Studies at Discharge: No Discharge Instructions Given to Patient (Per Discharging Provider) Please follow up with your PCP in 1-2 weeks. Please follow up with cardiology within a month. Keep plans for nuclear stress test on 09/26/25 as outpatient at [facility]. Total Time Total Time Spent Total Time Spent (In Minutes): 38
--- NOTE | 2025-09-24 07:18 | Electrocardiogram Report ---
Test Reason : Blood Pressure : */* mmHG Vent. Rate : 92 BPM Atrial Rate : 92 BPM P-R Int : 216 ms QRS Dur : 82 ms QT Int : 370 ms P-R-T Axes : 60 -9 50 degrees QTcB Int : 457 ms Sinus rhythm with 1st degree A-V block Otherwise normal ECG When compared with ECG of 02-Mar-2025 14:36, No significant change was found Confirmed by Eriberto Pabon ([id number]) on 09/24/2025 7:17:59 AM Referred By: Chelle Vasquez Confirmed By: Eriberto Pabon
== END 2025-09-22 15:01 | disposition home or self-care (01) | DRG 291 ==
LOC: ED 13:53 → SUATTDRO 17:38 → 2N 17:38